=== PATIENT | female | born 1985 | race Caucasian/White ===

== ENCOUNTER 2016-06-09 13:33 | Emergency (ER) | payer OTHER ==
[~2016-06-09] VITALS: Ht 167.6 cm; Wt 71.4 kg
[~2016-06-09 13:33] MED LIST: MTR600X PO
[2016-06-09 13:35] VITALS: TEMP 37; Ht 167.6 cm; Wt 71.4 kg
[2016-06-09] MEDS ORDERED: DEXAMETHASONE SOD INJ 4 MG/ML VIAL IV STA (13:49)
[2016-06-09] MEDS ORDERED: DiphenhydrAMINE HCL 50 MG/ML VIAL IV STA (13:49)
[2016-06-09] MEDS ORDERED: FAMOTIDINE 20MG/102 ML D5W IV STA (13:49)
[2016-06-09] MEDS ORDERED: VENL150C PO (14:16)
[2016-06-09 14:24] LABS: COMPLETE YES; HEMATOCRIT 32.4 % (37-47); LYMPH % 20.8 %; LYMPH ABS # 1.45 K/uL (1.2-3.4); MEAN CELL VOLUME 85.3 fL (80-100); MEAN CORPUSCULAR HGB CONC 35.2 g/dl (32-36); MEAN PLATELET VOLUME 10.3 fL (7.4-10.4); MONO % 13.4 %; NEUT % 65.8 %; PLATELET COUNT 139 K/uL (130-400); WHITE BLOOD COUNT 6.96 K/uL (4.8-10.8)
[2016-06-09 14:40] LABS: BUN/CREATININE RATIO 4.9 (10-20); CALCIUM 8.4 mg/dl (8.5-10.1); CREATININE 0.67 mg/dl (0.60-1.20); POTASSIUM 3.6 mmol/L (3.5-5.1)
[2016-06-09] MEDS ORDERED: CLIN300C10 PO (15:14)
[2016-06-09] MEDS ORDERED: METH4PAK PO (15:14)
--- NOTE | 2016-06-09 15:15 | EMERGENCY ROOM VISIT NOTE ---
History First contact with patient: 13:39 Chief Complaint: FACIAL PAIN/INJURY Stated Complaint: PAIN, SWELLING, REDNESS, BLISTERING IN FACE History of Present Illness The patient is a 31 year old female who presents to the Emergency Room with complaints of facial swelling and redness which started 4 days ago. The patient states initially she noticed a small lump underneath her chin 4 days ago and since that time she has noticed some swelling and redness on her chin and face. She also states there are small vesicles on her face. The patient states it is itchy. She denies any severe pain. She states it "waldron". The patient denies any new soaps or lotions. The patient denies any other new environmental exposures. The patient thought at first it might be due to her teeth. The patient has diffuse decay of her teeth but currently is not having any increased tooth pain. The patient denies any throat or chest tightness. Review of Systems 10 system review was performed and was negative unless stated otherwise history of present illness. Past Medical/Surgical History Medical Problems: (1) Acute appendicitis (2) Appendectomy (3) No Known Active Medical Problems Social History Smoking Status: Never Smoker Alcohol Use: none Marital Status: single Housing Status: lives with family Occupation Status: employed Current/Historical Medications Scheduled Venlafaxine Hcl (Effexor Xr), 2 CAP PO DAILY Scheduled PRN Ibuprofen (Ibuprofen), 600 MG PO Q4H PRN for PAIN, SAAB, CRAMPING OR FEVER Allergies Coded Allergies: Penicillins (Verified Allergy, Intermediate, HIVES, 06/09/16) Physical Exam Vital Signs Date Time Temp Pulse Resp B/P Pulse Ox O2 Delivery O2 Flow Rate FiO2 06/09/16 13:35 37.0 86 20 113/73 99 Room Air Physical Exam GENERAL: 31-year-old white female appears in no acute distress. MENTAL Status: Alert and oriented 3. PHARYNX: No erythema or edema noted. Airway is adequate. MOUTH: Diffuse dental decay is noted. No visible abscess noted. FACE: The patient has erythema and edema noted across both sides of the mandible. She also has a area of vesicles with some yellow crusting noted on the chin. NECK: Supple, submental lymphadenopathy is noted which is tender to palpation. Bilateral anterior lymphadenopathy is noted which is nontender to palpation. LUNGS: Clear auscultation without wheezes rales or rhonchi. CARDIAC: Regular rate and rhythm without murmur. Pulses is full and equal throughout. SKIN: Remainder of skin without rashes. Medical Decision & Procedures Laboratory Results 06/09/16 14:15 Red Blood Count 3.80, Mean Corpuscular Volume 85.3, Mean Corpuscular Hemoglobin 30.0, Mean Corpuscular Hemoglobin Concent 35.2, Mean Platelet Volume 10.3, Neutrophils (%) (Auto) 65.8, Lymphocytes (%) (Auto) 20.8, Monocytes (%) (Auto) 13.4, Eosinophils (%) (Auto) 0.0, Basophils (%) (Auto) 0.0, Neutrophils # (Auto ) 4.58, Lymphocytes # (Auto) 1.45, Monocytes # (Auto) 0.93, Eosinophils # (Auto ) 0.00, Basophils # (Auto) 0.00 06/09/16 14:15 Test 06/09/16 14:15 White Blood Count 6.96 K/uL (4.8-10.8) Red Blood Count 3.80 M/uL (4.2-5.4) Hemoglobin 11.4 g/dL (12.0-16.0) Hematocrit 32.4 % (37-47) Mean Corpuscular Volume 85.3 fL (80-100) Mean Corpuscular Hemoglobin 30.0 pg (25-34) Mean Corpuscular Hemoglobin Concent 35.2 g/dl (32-36) Platelet Count 139 K/uL (130-400) Mean Platelet Volume 10.3 fL (7.4-10.4) Neutrophils (%) (Auto) 65.8 % Lymphocytes (%) (Auto) 20.8 % Monocytes (%) (Auto) 13.4 % Eosinophils (%) (Auto) 0.0 % Basophils (%) (Auto) 0.0 % Neutrophils # (Auto) 4.58 K/uL (1.4-6.5) Lymphocytes # (Auto) 1.45 K/uL (1.2-3.4) Monocytes # (Auto) 0.93 K/uL (0.11-0.59) Eosinophils # (Auto) 0.00 K/uL (0-0.5) Basophils # (Auto) 0.00 K/uL (0-0.2) RDW Standard Deviation 42.2 fL (36.4-46.3) RDW Coefficient of Variation 13.5 % (11.5-14.5) Immature Granulocyte % (Auto) 0.0 % Immature Granulocyte # (Auto) 0.00 K/uL (0.00-0.02) Anion Gap 7.0 mmol/L (3-11) Est Creatinine Clear Calc Drug Dose 125.4 ml/min Estimated GFR () 137.7 Estimated GFR (Non- 118.8 BUN/Creatinine Ratio 4.9 (10-20) Calcium Level 8.4 mg/dl (8.5-10.1) Medications Administered Medications (Trade) Dose Ordered Sig/Sandra Route Start Time Stop Time Status Last Admin Dose Admin Famotidine (Pepcid 20mg/100 ml) 20 mg ONE STAT IV 06/09/16 13:49 06/09/16 13:51 DC 06/09/16 14:21 20 MG Dexamethasone Sodium Phosphate (Decadron Inj) 10 mg NOW STAT IV 06/09/16 13:49 06/09/16 13:51 DC 06/09/16 14:22 10 MG Diphenhydramine HCl (Benadryl Inj) 50 mg NOW STAT IV 06/09/16 13:49 06/09/16 13:51 DC 06/09/16 14:24 50 MG ED Course The patient was evaluated. IV access was obtained. The patient was given Pepcid 20 mg IV, Decadron 10 mg IV and Benadryl 50 mg IV. CBC and differential , renal profile was ordered. Labs are reviewed and were unremarkable. The patient was reevaluated was feeling slightly better. The patient was discharged home in stable condition. Medical Decision Differential diagnosis include cellulitis, herpes zoster, allergic contact dermatitis Impression Primary Impression: Allergic contact dermatitis Departure Information Dispostion Home / Self-Care Condition GOOD Prescriptions Clindamycin Hcl (CLINDAMYCIN HCL) 300 Mg Cap 1 TAB PO TID for 10 Days Prov: Shayla Condon PA-C 06/09/16 Methylprednisolone (MEDROL DOSEPAK) 4 Mg John 1 PKT PO UD for 6 Days, #1 PKT Prov: Shayla Condon PA-C 06/09/16 Referrals No Doctor, Assigned (PCP) Forms HOME CARE DOCUMENTATION FORM, IMPORTANT VISIT INFORMATION Patient Instructions [facility] Additional Instructions Keep area is cool and dry as possible. Do not apply any soaps or detergents your face. Take Medrol dosepak as prescribed. Take clindamycin as prescribed. Also recommend Benadryl 25 mg every 6 hours for itch until rash resolves. Follow-up with your family doctor in 3 days for reevaluation. If symptoms worsen in the interim, return to ER.
[2016-06-09 15:35] VITALS: BP 112/68; PULSE 78; O2SAT 99
== END 2016-06-09 15:30 | disposition home or self-care (01) ==
LOC: C.EDB 13:35
DX: L30.8 Other specified dermatitis (principal); Z87.19 Personal history of other diseases of the digestive system; Z98.890 Other specified postprocedural states; Z88.0 Allergy status to penicillin

== ENCOUNTER 2016-09-29 16:07 | Emergency (ER) | payer OTHER ==
[~2016-09-29] VITALS: Ht 167.6 cm; Wt 72.2 kg
[~2016-09-29 16:07] MED LIST changes: +CLIN300C10 PO; +VENL150C PO
[2016-09-29 16:10] VITALS: BP 120/74; PULSE 89; TEMP 36.7; O2SAT 100; Ht 167.6 cm; Wt 72.2 kg
[2016-09-29] MEDS ORDERED: CLIN300C10 PO (16:43)
[2016-09-29] MEDS ORDERED: HYDR-5688 PO (16:43)
--- NOTE | 2016-09-29 23:37 | EMERGENCY ROOM VISIT NOTE ---
ED Visit Note First contact with patient: 16:19 CHIEF COMPLAINT: Tooth pain with swelling. HISTORY OF PRESENT ILLNESS: Ms. Wooten is a 31-year-old white female who ambulates into the ED complaining of right mandibular dental pain and facial swelling. Historically she reports she has significant dental disease throughout her mouth. She is scheduled to see an oral surgeon in [facility] later this month for extraction of all her teeth. She reports a progressive dental pain for the last 3-4 days over the right mandible. The pain is now steady and severe and radiates to the face. She has been using ibuprofen but has had moderate relief of her discomfort last few days but pain became severe today and is not relieved with ibuprofen. Currently she describes her pain as a deep achy sensation. She rates her discomfort 8/10. Her.is pain does radiate through the right mandibular teeth and into the right preauricular area. Her pain worsens with palpation of the teeth, chewing and exposure to hot and cold foods. Associated with her increase in pain she has noted facial swelling and mild erythema. She denies any associated fevers, chills, sweats, other facial swelling, upper respiratory tract symptoms, sore throat, difficulty swallowing, voice changes, neck pain/ stiffness, decreased appetite, nausea/vomiting. REVIEW OF SYSTEMS: As noted above in History of Present Illness. 8 body systems were reviewed with this patient and found to be negative unless noted above otherwise. PMH: Patient denies. CURRENT MEDICATION: Effexor. ALLERGIES TO MEDICATION: Penicillin. SOCIAL HISTORY: Patient is currently employed; she feels safe in her home environment; she admits to tobacco use and denies alcohol use. PHYSICAL EXAM: Vital Signs: Date Time Temp Pulse Resp B/P (MAP) Pulse Ox O2 Delivery O2 Flow Rate FiO2 09/29/16 16:10 36.7 89 18 120/74 100 Room Air General: 31 year-old white female in mild distress due to pain, nontoxic appearing, afebrile and hemodynamically stable. Neurological: Awake, alert and oriented to person, place and time. Answering questions appropriately and following commands. Skin: Warm, dry and pink. Face: Over the right side of the face over the mandibular area patient has mild facial swelling and mild erythema. No lymphangitis. HEENT: Atraumatic and normocephalic. Oral cavity is moist and pink. Airway is patent. Patient has multiple decaying teeth throughout the mouth. There is erythema and edema over the right mandibular gingiva. I was not able to palpate a specific abscess. Airway was patent. No cervical or submandibular lymphadenopathy. ED COURSE: Patient is assessed as noted above. Patient's medication list was reviewed. Patient is educated about her findings and instructed on her treatment plan; she verbalizes understanding and agreement with this plan. CLINIC IMPRESSION: Right mandibular dental abscess. DISPOSITION: Patient discharged home in stable condition; prior to departure she was reassessed and subjectively reported she was feeling the same. PLAN: Comfort measures were discussed including a sliding pain scale of ibuprofen, acetaminophen and [place]. Appropriate narcotic precautions were discussed and her name was checked on a state database. Patient was prescribed clindamycin 300 mg 4 times a day for 10 days. Patient was encouraged to smoking, keep her mouth clean and use a liquid/ mechanical soft diet and possible dental wax. Patient was encouraged to followup with personal dentist for definitive care and treatment. Patient was encouraged to return the ED for facial swelling or fevers or any new /concerning symptoms.
== END 2016-09-29 16:58 | disposition home or self-care (01) ==
LOC: C.EDB 16:09 → C.EDD 16:58
DX: K04.7 Periapical abscess without sinus (principal); Z72.0 Tobacco use

== ENCOUNTER 2017-02-02 13:02 | Emergency (ER) | payer OTHER ==
[~2017-02-02] VITALS: Ht 167.6 cm; Wt 71.4 kg
[~2017-02-02 13:02] MED LIST changes: +HYDR-5688 PO; -MTR600X PO
[2017-02-02 13:07] VITALS: TEMP 36.7; Ht 167.6 cm; Wt 71.4 kg
[2017-02-02] MEDS ORDERED: ONDANSETRON INJ 2 MG/ML 2 ML VIAL IV STA (13:40)
[2017-02-02] MEDS ORDERED: MoRPHine SULFATE 10 MG/ML CARP/VIAL IV STA (13:40)
--- NOTE | 2017-02-02 13:49 | EMERGENCY ROOM VISIT NOTE ---
History Report prepared by Abhijeet: Genaro Salinas Under the Supervision of: Dr. Everett Cao M.D. First contact with patient: 13:20 Chief Complaint: RIB PAIN Stated Complaint: SHARP PAIN WHEN BREATHING IN ON RT SIDE History of Present Illness The patient is a 31 year old white female with a past medical history of an appendectomy who presents to the ED with a cc of worsening, sharp RUQ abdominal pain beginning this morning. The patient woke this morning and thought it was from sleeping wrong. She has not eaten anything secondary to pain. Positive radiating to her back, breathing worsens her discomfort, able to drink fluids, nausea, current smoker. Negative history of kidney stones, trauma, vomiting, recent abx use, being around other sick people, fevers, chills, trouble urinating, trouble defecating, sorethroat, history of blood clots in lungs or legs, recent travel. LNMP was 2-3 weeks ago. Last normal BM was last night. Source of History: patient Onset: this morning Position: abdomen (RUQ) Quality: sharp Timing: worsening Modifying Factors (Worsening): breathing (deep) Associated Symptoms: + nausea, No fevers, No chills, No sorethroat, No vomiting, No urinary symptoms Note: Associated symptoms: able to drink fluids Denies: trouble defecating, recent travel Review of Systems See HPI for pertinent positives and negatives. A total of ten systems were reviewed and were otherwise negative. Past Medical & Surgical Medical Problems: (1) Acute appendicitis (2) Appendectomy (3) No Known Active Medical Problems Family History Diabetes mellitus Kidney disease Kidney stones Social History Smoking Status: Current Every Day Smoker Alcohol Use: none Marital Status: single Housing Status: lives with family Occupation Status: unemployed Current/Historical Medications Scheduled Ondasetron Odt (Zofran Odt), 4 MG SL Q6H Tramadol Hcl (Ultram), 50 MG PO Q8H Allergies Coded Allergies: Penicillins (Verified Allergy, Intermediate, HIVES, 02/02/17) Physical Exam Vital Signs Date Time Temp Pulse Resp B/P (MAP) Pulse Ox O2 Delivery O2 Flow Rate FiO2 02/02/17 16:32 101 18 109/72 98 Room Air 02/02/17 14:07 89 14 99 02/02/17 14:02 102 19 111/72 100 Room Air 02/02/17 13:32 116 22 99 Room Air 02/02/17 13:31 117/78 02/02/17 13:30 125 20 117/78 100 Room Air 02/02/17 13:29 111/74 02/02/17 13:07 36.7 149 20 115/76 100 Room Air Physical Exam GENERAL: Awake, alert, well-appearing, NAD HENT: Normocephalic, atraumatic. EYES: Normal conjunctiva. Sclera non-icteric. NECK: Supple. No nuchal rigidity. FROM. RESPIRATORY: CTAB, no rhonchi, wheezing, crackles CARDIAC: RRR, no MRG ABDOMEN: Soft, ND, BS+, RUQ tenderness - positive Looney's sign. MSK: No chest wall TTP, no LE edema NEURO: GCS 15, CN 2-12 intact, moves all 4s on command SKIN: No rash or jaundice noted. Medical Decision & Procedures ER Provider Diagnostic Interpretation: Radiology results as stated below per my review and radiologist interpretation: ABDOMINAL ULTRASOUND, RIGHT UPPER QUADRANT HISTORY: Generalized abdominal pain.. COMPARISON: Abdominal MRI 04/01/2011. FINDINGS: Pancreas: Obscured by overlying bowel gas. Liver: A 3.3 cm ill-defined echogenic focus within the anterior aspect of the right hepatic lobe. This is not confirmed on additional views and may represent artifact.. Gallbladder: No gallbladder wall thickening. No gallstones. CBD: 5 mm. Right kidney: No hydronephrosis. IMPRESSION: 1. Normal gallbladder. No gallstones. 2. Pancreas obscured by overlying bowel gas. Electronically signed by: Marcellus Ochoa M.D. 02/02/2017 3:08 PM Dictated Date/Time: 02/02/2017 3:05 PM CHEST ONE VIEW PORTABLE HISTORY: Generalized abdominal pain. COMPARISON: Chest 06/14/2012. FINDINGS: The lungs are clear. Cardiac silhouette is normal in size. No pleural effusions. No pneumothorax. IMPRESSION: No acute process. Electronically signed by: Marcellus Ochoa M.D. 02/02/2017 2:09 PM Dictated Date/Time: 02/02/2017 2:08 PM CHEST CTA for PULMONARY ARTERIES CT DOSE: 189.63 mGy.cm HISTORY: Right-sided pleuritic chest pain. Tachycardia. TECHNIQUE: Multiaxial CT images of the chest were performed following the intravenous administration of contrast to evaluate the pulmonary arteries. Maximal intensity projection images were also obtained. A dose lowering technique was utilized adhering to the principles of ALARA. COMPARISON STUDY: None. FINDINGS: There is a normal caliber thoracic aorta with no evidence for dissection. There is no evidence for pulmonary embolus. No pleural effusions. No pneumothorax. The liver is unremarkable. The spleen is partially visualized but appears enlarged. This measures 14 cm in AP dimension. No mediastinal or left hilar lymphadenopathy. Filling defect within the right lower lobe bronchus which appears to represent a small amount of mucoid material. This results in moderate to severe narrowing of the right lower lobe bronchus. Single prominent right hilar lymph node which measures 9 mm in short axis diameter. IMPRESSION: 1. No evidence for pulmonary embolus. 2. The spleen is partially visualized but appears enlarged. 3. Filling defect within the right lower lobe bronchus which appears to represent a small amount of mucoid material. This results in moderate to severe narrowing of the right lower lobe bronchus. Electronically signed by: Marcellus Ochoa M.D. 02/02/2017 4:44 PM Dictated Date/Time: 02/02/2017 4:27 PM Laboratory Results 02/02/17 13:30 Red Blood Count 4.67, Mean Corpuscular Volume 83.7, Mean Corpuscular Hemoglobin 29.6, Mean Corpuscular Hemoglobin Concent 35.3, Mean Platelet Volume 10.0, Neutrophils (%) (Auto) 69.4, Lymphocytes (%) (Auto) 20.0, Monocytes (%) (Auto) 10.4, Eosinophils (%) (Auto) 0.0, Basophils (%) (Auto) 0.0, Neutrophils # (Auto ) 4.35, Lymphocytes # (Auto) 1.25, Monocytes # (Auto) 0.65, Eosinophils # (Auto ) 0.00, Basophils # (Auto) 0.00 02/02/17 13:30 Test 02/02/17 13:30 02/02/17 16:35 White Blood Count 6.26 K/uL (4.8-10.8) Red Blood Count 4.67 M/uL (4.2-5.4) Hemoglobin 13.8 g/dL (12.0-16.0) Hematocrit 39.1 % (37-47) Mean Corpuscular Volume 83.7 fL (80-100) Mean Corpuscular Hemoglobin 29.6 pg (25-34) Mean Corpuscular Hemoglobin Concent 35.3 g/dl (32-36) Platelet Count 150 K/uL (130-400) Mean Platelet Volume 10.0 fL (7.4-10.4) Neutrophils (%) (Auto) 69.4 % Lymphocytes (%) (Auto) 20.0 % Monocytes (%) (Auto) 10.4 % Eosinophils (%) (Auto) 0.0 % Basophils (%) (Auto) 0.0 % Neutrophils # (Auto) 4.35 K/uL (1.4-6.5) Lymphocytes # (Auto) 1.25 K/uL (1.2-3.4) Monocytes # (Auto) 0.65 K/uL (0.11-0.59) Eosinophils # (Auto) 0.00 K/uL (0-0.5) Basophils # (Auto) 0.00 K/uL (0-0.2) RDW Standard Deviation 40.0 fL (36.4-46.3) RDW Coefficient of Variation 13.4 % (11.5-14.5) Immature Granulocyte % (Auto) 0.2 % Immature Granulocyte # (Auto) 0.01 K/uL (0.00-0.02) Anion Gap 9.0 mmol/L (3-11) Est Creatinine Clear Calc Drug Dose 87.5 ml/min Estimated GFR () 92.6 Estimated GFR (Non- 79.9 BUN/Creatinine Ratio 5.4 (10-20) Calcium Level 9.2 mg/dl (8.5-10.1) Total Bilirubin 0.5 mg/dl (0.2-1) Direct Bilirubin 0.1 mg/dl (0-0.2) Aspartate Amino Transf (AST/SGOT) 25 U/L (15-37) Alanine Aminotransferase (ALT/SGPT) 22 U/L (12-78) Alkaline Phosphatase 116 U/L (45-117) Total Protein 7.5 gm/dl (6.4-8.2) Albumin 3.8 gm/dl (3.4-5.0) Lipase 80 U/L (73-393) Urine Color YELLOW Urine Appearance CLEAR (CLEAR) Urine pH 8.5 (4.5-7.5) Urine Specific [place] > 1.045 (1.000-1.030) Urine Protein NEG (NEG) Urine Glucose (UA) NEG (NEG) Urine Ketones NEG (NEG) Urine Occult Blood TRACE (NEG) Urine Nitrite NEG (NEG) Urine Bilirubin NEG (NEG) Urine Urobilinogen NEG (NEG) Urine Leukocyte Esterase NEG (NEG) Urine WBC (Auto) 0 /hpf (0-5) Urine RBC (Auto) 0-4 /hpf (0-4) Urine Hyaline Casts (Auto) 0 /lpf (0-5) Urine Epithelial Cells (Auto) 10-20 /lpf (0-5) Urine Bacteria (Auto) NEG (NEG) Urine Test NEG (NEG) Laboratory results reviewed by me Medications Administered Medications (Trade) Dose Ordered Sig/Sandra Route Start Time Stop Time Status Last Admin Dose Admin Ondansetron HCl (Zofran Inj) 4 mg NOW STAT IV 02/02/17 13:40 02/02/17 13:45 DC 02/02/17 13:55 4 MG Morphine Sulfate (MoRPHine SULFATE INJ) 4 mg STK-MED ONCE .ROUTE 02/02/17 13:52 02/02/17 13:53 DC 02/02/17 13:56 4 MG Morphine Sulfate (MoRPHine SULFATE INJ) 2 mg STK-MED ONCE .ROUTE 02/02/17 13:53 02/02/17 13:54 DC 02/02/17 13:56 2 MG ECG Indication: abdominal pain Rate (beats per minute): 140 Rhythm: sinus tachycardia Findings: other (Normal intervals, no STS or TWI) ED Course 1333: The patient was evaluated in room C12B. A complete history and physical exam was performed. 1601: The patient is getting her CT. According to the tracker, her blood pressure has improved. 1653: I reevaluated the patient. Discussed results and discharge instructions: she verbalized understanding and agreement. The patient is ready for discharge. Medical Decision The patient is a 31 year old white female with a past medical history of an appendectomy who presents to the ED with a cc of worsening, sharp RUQ abdominal pain beginning this morning. Etiologies such as appendicitis, diverticulitis, PUD, biliary pathology, UTI, pancreatitis, obstruction, mesenteric ischemia, aortic pathology, infections, inflammatory bowel disease, renal colic, as well as others were entertained. Patient was seen and evaluated at the bedside. Patient was complaining of some fairly abrupt right upper quadrant or pleuritic chest pain. Patient does not take any OCPs. Patient is a smoker. Patient was counseled on smoking cessation. Patient denies any prior history of DVT or PE. Patient does not endorse any recent prolonged car or plane travel. Patient does not complain of any lower extremity swelling. Patient states that the pain she states is worse when she breathes in but she feels as though this is more in the upper right quadrant. Patient denies any cough, fevers, chills. Patient states she did have some liquids this morning but this did not exacerbate her pain. Patient denies any recent trauma. Initially there was more concern for possible gallbladder etiology. Patient did have a right quadrant ultrasound ordered, blood work, EKG, chest x-ray and urinalysis with UPT. Patient was also given pain medication. Patient's pain was improved and tachycardia resolved. Patient 's blood work showed that she had no elevation in her white blood cell count. Patient's hemoglobin was normal. Patient urinalysis was negative for infection or blood. Urine test was negative. Patient does not have any elevations in her LFTs or lipase. Patient also had a negative gallbladder ultrasound and chest x-ray. Given this and the fact that the patient was complaining of pleuritic chest pain with tachycardia patient did receive a CT of the chest to rule out possible PE. Patient's CT did not show acute pulmonary embolus. There was a filling defect in the right lower bronchus. I did speak with the radiologist stated that this was with in the bronchus and that this was not located within the vasculature and not concerning for pulmonary infarct. Patient was told of all findings patient pain was improved. Patient's EKG did show sinus tachycardia but his tachycardia had resolved I do not believe that this is atypical chest pain or ACS given the patient's history and physical. I do not believe that the patient requires an abdominal CTs patient's pain is improved. Patient has not had any vomiting and does not have an acute surgical abdomen. Furthermore, the patient's blood work is fairly unremarkable and unconcerning. Patient was deemed suitable for outpatient follow-up and treatment. Patient was given strict follow-up, discharge, and return precautions. All questions were answered. Patient was deemed suitable for outpatient follow-up at this time. Patient agreed with the plan of care and was safely discharged home. Impression Primary Impression: RUQ pain Additional Impression: Pleuritic pain Scribe Attestation The scribe's documentation has been prepared under my direction and personally reviewed by me in its entirety. I confirm that the note above accurately reflects all work, treatment, procedures, and medical decision making performed by me. Departure Information Dispostion Home / Self-Care Prescriptions Ondasetron Odt (ZOFRAN ODT) 4 Mg Tab 4 MG SL Q6H for Nausea, #6 TAB Prov: Everett Cao M.D. 02/02/17 Tramadol Hcl (ULTRAM) 50 Mg Tab 50 MG PO Q8H, #15 TAB PRN PAIN Prov: Everett Cao M.D. 02/02/17 Referrals No Doctor, Assigned (PCP) Forms HOME CARE DOCUMENTATION FORM, IMPORTANT VISIT INFORMATION, WORK / SCHOOL INSTRUCTIONS Patient Instructions Abdominal Pain, My [facility] [employer] Additional Instructions Please return to the emergency department if you have worsening or recurrent symptoms not amenable to at-home treatment. Please call for a follow-up appointment with her primary care physician. Please take your medications as prescribed. If you have other concerns and/or complaints please feel free to also call your primary care physician's office or return the ED for further evaluation, management, and treatment. You may take 400 mg Ibuprofen every 6 hours as needed for pain with food for no more than 2 consecutive days. You may take tylenol 1000 mg every 6 hours as needed for pain. You may take motrin and tylenol separately or at the same time. Take your medications as prescribed. You have been examined and treated today on an emergency basis only. This is not a substitute for, or an effort to provide, complete comprehensive medical care. It is impossible to recognize and treat all injuries or illnesses in a single emergency department visit. It is therefore important that you follow up closely with [facility], your PCP, and/or your specialist(s). Call as soon as possible for an appointment. Thank you for your time and consideration. I look forward to speaking with you again soon. Please don't hesitate to call us if you have any questions. Problem Qualifiers
[2017-02-02] MEDS ORDERED: MoRPHine SULFATE 4 MG/ML 1 ML CARP\\VIAL ONE (13:52)
[2017-02-02] MEDS ORDERED: MoRPHine SULFATE 2 MG/ML CARP ONE (13:53)
[2017-02-02 14:04] LABS: COMPLETE YES; HEMATOCRIT 39.1 % (37-47); IG% 0.2 %; LYMPH ABS # 1.25 K/uL (1.2-3.4); MEAN CELL VOLUME 83.7 fL (80-100); MEAN CORPUSCULAR HEMOGLOBIN 29.6 pg (25-34); MEAN CORPUSCULAR HGB CONC 35.3 g/dl (32-36); MONO % 10.4 %; NEUT % 69.4 %; PLATELET COUNT 150 K/uL (130-400); RED BLOOD COUNT 4.67 M/uL (4.2-5.4); WHITE BLOOD COUNT 6.26 K/uL (4.8-10.8)
--- NOTE | 2017-02-02 14:10 | DIAGNOSTIC IMAGING REPORT ---
CHEST ONE VIEW PORTABLE HISTORY: Generalized abdominal pain. COMPARISON: Chest 06/14/2012. FINDINGS: The lungs are clear. Cardiac silhouette is normal in size. No pleural effusions. No pneumothorax. IMPRESSION: No acute process. Electronically signed by: Marcellus Ochoa M.D. 02/02/2017 2:09 PM Dictated Date/Time: 02/02/2017 2:08 PM
[2017-02-02 14:13] LABS: BUN/CREATININE RATIO 5.4 (10-20); CALCIUM 9.2 mg/dl (8.5-10.1); CREATININE 0.96 mg/dl (0.60-1.20); POTASSIUM 3.9 mmol/L (3.5-5.1)
--- NOTE | 2017-02-02 15:10 | DIAGNOSTIC IMAGING REPORT ---
ABDOMINAL ULTRASOUND, RIGHT UPPER QUADRANT HISTORY: Generalized abdominal pain.. COMPARISON: Abdominal MRI 04/01/2011. FINDINGS: Pancreas: Obscured by overlying bowel gas. Liver: A 3.3 cm ill-defined echogenic focus within the anterior aspect of the right hepatic lobe. This is not confirmed on additional views and may represent artifact.. Gallbladder: No gallbladder wall thickening. No gallstones. CBD: 5 mm. Right kidney: No hydronephrosis. IMPRESSION: 1. Normal gallbladder. No gallstones. 2. Pancreas obscured by overlying bowel gas. Electronically signed by: Marcellus Ochoa M.D. 02/02/2017 3:08 PM Dictated Date/Time: 02/02/2017 3:05 PM
[2017-02-02] MEDS ORDERED: OPTIRAY 320 IV PRN (15:30)
--- NOTE | 2017-02-02 16:45 | DIAGNOSTIC IMAGING REPORT ---
CHEST CTA for PULMONARY ARTERIES CT DOSE: 189.63 mGy.cm HISTORY: Right-sided pleuritic chest pain. Tachycardia. TECHNIQUE: Multiaxial CT images of the chest were performed following the intravenous administration of contrast to evaluate the pulmonary arteries. Maximal intensity projection images were also obtained. A dose lowering technique was utilized adhering to the principles of ALARA. COMPARISON STUDY: None. FINDINGS: There is a normal caliber thoracic aorta with no evidence for dissection. There is no evidence for pulmonary embolus. No pleural effusions. No pneumothorax. The liver is unremarkable. The spleen is partially visualized but appears enlarged. This measures 14 cm in AP dimension. No mediastinal or left hilar lymphadenopathy. Filling defect within the right lower lobe bronchus which appears to represent a small amount of mucoid material. This results in moderate to severe narrowing of the right lower lobe bronchus. Single prominent right hilar lymph node which measures 9 mm in short axis diameter. IMPRESSION: 1. No evidence for pulmonary embolus. 2. The spleen is partially visualized but appears enlarged. 3. Filling defect within the right lower lobe bronchus which appears to represent a small amount of mucoid material. This results in moderate to severe narrowing of the right lower lobe bronchus. Electronically signed by: Marcellus Ochoa M.D. 02/02/2017 4:44 PM Dictated Date/Time: 02/02/2017 4:27 PM
[2017-02-02 16:58] LABS: URINE APPEARANCE CLEAR (CLEAR); URINE BILIRUBIN NEG (NEG); URINE COLOR YELLOW; URINE NITRITE NEG (NEG); URINE PH 8.5 (4.5-7.5); URINE SPECIFIC GRAVITY > 1.045 (1.000-1.030); UROBILINOGEN NEG (NEG); ZZUR CULT IF INDIC CLEAN CATCH NO
[2017-02-02 17:00] LABS: MANUAL MICROSCOPIC REQUIRED? NO; REVIEW REQ? NO
[2017-02-02] MEDS ORDERED: TRAM-453 PO (17:14)
[2017-02-02] MEDS ORDERED: ONDA4TAB10 SL (17:14)
[2017-02-02 17:47] VITALS: BP 106/65; PULSE 87; O2SAT 98
== END 2017-02-02 17:47 | disposition home or self-care (01) ==
LOC: C.EDB 13:03 → C.EDC 17:47
DX: R10.11 Right upper quadrant pain (principal); R07.81 Pleurodynia; Z90.89 Acquired absence of other organs; F17.200 Nicotine dependence, unspecified, uncomplicated; Z83.3 Family history of diabetes mellitus; Z84.1 Family history of disorders of kidney and ureter

== ENCOUNTER 2017-07-17 20:47 | Emergency (ER) | payer OTHER ==
[~2017-07-17] VITALS: Ht 167.6 cm; Wt 73.8 kg
[~2017-07-17 20:47] MED LIST changes: -CLIN300C10 PO; -HYDR-5688 PO; +ONDA4TAB10 SL; -VENL150C PO
[2017-07-17 20:51] VITALS: TEMP 36.9; Ht 167.6 cm; Wt 73.8 kg
--- NOTE | 2017-07-17 21:37 | EMERGENCY ROOM VISIT NOTE ---
History Report prepared by Abhijeet: Lamar Donato Under the Supervision of: Dr. Diamond Benítez M.D. First contact with patient: 21:10 Chief Complaint: MENTAL HEALTH EVALUATION Stated Complaint: MENTAL HEALTH EVAL History of Present Illness The patient is a 32 year old female who presents to the Emergency Room with complaints of a mental health evaluation today. The patient states that she missed a court hearing recently due to transportation issues. The patient reports that she has been very depressed lately and that she is on Subutex but that she has not been using it correctly and instead has been taking it so that she "could sleep." The patient states that her mom kicked her out of her house because they got into an argument. The patient states that shortly after she got an eviction notice from her mother and stepdad. Patient admits to thoughts of suicide however she believes her daughter, who is 6 years old, needs her, which prevents her from self-harm. The patient has 3 other children which have been removed from her custody. She states that she took her Subutex today and denies other drug and alcohol use. The patient states that she is on Effexor but that she has not taken it in a few days because her prescription ran out. The patient states that she has been a psych inpatient before as a child, but not as an adult. She denies having other symptoms. Source of History: patient Onset: today Position: other (generalized ) Quality: other (mental health evaluation ) Timing: constant Associated Symptoms: No fevers Review of Systems See HPI for pertinent positives & negatives. A total of 10 systems reviewed and were otherwise negative. Past Medical & Surgical Medical Problems: (1) Acute appendicitis (2) Appendectomy (3) No Known Active Medical Problems Family History Diabetes mellitus Kidney disease Kidney stones Social History Smoking Status: Current Every Day Smoker Alcohol Use: none Drug Use: other (Subutex, amphetamines) Marital Status: single Housing Status: lives with family Occupation Status: unemployed Current/Historical Medications Scheduled Buprenorphine Hcl (Subutex), 8 MG SL BID Venlafaxine Hcl (Venlafaxine Hcl Er), 300 MG PO DAILY Allergies Coded Allergies: Penicillins (Verified Allergy, Intermediate, HIVES, 02/02/17) Physical Exam Vital Signs Date Time Temp Pulse Resp B/P (MAP) Pulse Ox O2 Delivery O2 Flow Rate FiO2 07/17/17 20:51 36.9 83 18 122/80 99 Room Air Physical Exam Vital signs reviewed. General: Disheveled female. Tearful, anxious. Lack of facial hair. Wig in place. HEENT: No scleral icterus, PERRLA, neck supple. Atraumatic. Edentulous. Cardiovascular: Regular rate and rhythm, no extra sounds. Pulmonary: Clear to auscultation bilaterally, normal work of breathing. Abdomen: Soft, nontender, nondistended, positive bowel sounds. Musculoskeletal: Atraumatic, no peripheral edema. Neurologic: Patient awake alert and oriented x 3 Skin: Warm, dry, no rash Psych: Positive SI no plan. Negative HI. Medical Decision & Procedures Laboratory Results 07/17/17 21:39 Red Blood Count 4.54, Mean Corpuscular Volume 80.4, Mean Corpuscular Hemoglobin 29.5, Mean Corpuscular Hemoglobin Concent 36.7, Mean Platelet Volume 9.5, Neutrophils (%) (Auto) 62.7, Lymphocytes (%) (Auto) 27.6, Monocytes (%) (Auto) 9.6, Eosinophils (%) (Auto) 0.0, Basophils (%) (Auto) 0.0, Neutrophils # (Auto) 4.20, Lymphocytes # (Auto) 1.85, Monocytes # (Auto) 0.64, Eosinophils # (Auto) 0.00, Basophils # (Auto) 0.00 07/17/17 21:39 Test 07/17/17 21:24 07/17/17 21:39 Urine Color DK YELLOW Urine Appearance CLEAR (CLEAR) Urine pH 5.5 (4.5-7.5) Urine Specific [place] 1.025 (1.000-1.030) Urine Protein NEG (NEG) Urine Glucose (UA) NEG (NEG) Urine Ketones NEG (NEG) Urine Occult Blood TRACE (NEG) Urine Nitrite NEG (NEG) Urine Bilirubin NEG (NEG) Urine Urobilinogen NEG (NEG) Urine Leukocyte Esterase NEG (NEG) Urine WBC (Auto) 1-5 /hpf (0-5) Urine RBC (Auto) 5-10 /hpf (0-4) Urine Hyaline Casts (Auto) 5-10 /lpf (0-5) Urine Epithelial Cells (Auto) 10-20 /lpf (0-5) Urine Bacteria (Auto) NEG (NEG) Urine Test NEG (NEG) Urine Opiates Screen NEG (NEG) Urine Methadone, Qualitative NEG (NEG) Urine Barbiturates NEG (NEG) Urine Phencyclidine (PCP) Level NEG (NEG) Ur Amphetamine/Methamphetamine POS (NEG) MDMA (Ecstasy) Screen NEG (NEG) Urine Benzodiazepines Screen NEG (NEG) Urine Cocaine Metabolite NEG (NEG) Urine Marijuana (THC) NEG (NEG) White Blood Count 6.70 K/uL (4.8-10.8) Red Blood Count 4.54 M/uL (4.2-5.4) Hemoglobin 13.4 g/dL (12.0-16.0) Hematocrit 36.5 % (37-47) Mean Corpuscular Volume 80.4 fL (80-100) Mean Corpuscular Hemoglobin 29.5 pg (25-34) Mean Corpuscular Hemoglobin Concent 36.7 g/dl (32-36) Platelet Count 183 K/uL (130-400) Mean Platelet Volume 9.5 fL (7.4-10.4) Neutrophils (%) (Auto) 62.7 % Lymphocytes (%) (Auto) 27.6 % Monocytes (%) (Auto) 9.6 % Eosinophils (%) (Auto) 0.0 % Basophils (%) (Auto) 0.0 % Neutrophils # (Auto) 4.20 K/uL (1.4-6.5) Lymphocytes # (Auto) 1.85 K/uL (1.2-3.4) Monocytes # (Auto) 0.64 K/uL (0.11-0.59) Eosinophils # (Auto) 0.00 K/uL (0-0.5) Basophils # (Auto) 0.00 K/uL (0-0.2) RDW Standard Deviation 38.5 fL (36.4-46.3) RDW Coefficient of Variation 13.3 % (11.5-14.5) Immature Granulocyte % (Auto) 0.1 % Immature Granulocyte # (Auto) 0.01 K/uL (0.00-0.02) Anion Gap 7.0 mmol/L (3-11) Est Creatinine Clear Calc Drug Dose 99.4 ml/min Estimated GFR () 106.6 Estimated GFR (Non- 91.9 BUN/Creatinine Ratio 2.1 (10-20) Calcium Level 8.9 mg/dl (8.5-10.1) Total Bilirubin 0.4 mg/dl (0.2-1) Direct Bilirubin 0.1 mg/dl (0-0.2) Aspartate Amino Transf (AST/SGOT) 30 U/L (15-37) Alanine Aminotransferase (ALT/SGPT) 30 U/L (12-78) Alkaline Phosphatase 109 U/L (45-117) Total Protein 7.7 gm/dl (6.4-8.2) Albumin 4.0 gm/dl (3.4-5.0) Thyroid Stimulating Hormone (TSH) 2.750 uIu/ml (0.300-4.500) Salicylates Level < 1.7 mg/dl (2.8-20) Acetaminophen Level < 2 ug/ml (10-30) Ethyl Alcohol mg/dL < 3.0 mg/dl (0-3) Laboratory results per my review. ED Course 2119: Past medical records reviewed. The patient was evaluated in room A6. A complete history and physical examination was performed. 0030: The patient was signed out to Dr. Rangel. Medical Decision Differential diagnosis: Etiologies such as mood disorder, infection, hypoglycemia, electrolyte abnormalities, cardiac sources, intracerebral event, toxicologic, neurologic, as well as others were entertained. This patient was evaluated and appeared to be in no significant distress. Patient is tearful and anxious. 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 Patient apparently has been removed from her living situation, last custody of her children and is having financial stressors. She is also having significant legal issues. Patient has been medically cleared. She has been evaluated by the psychiatric disability case manager. Her mother has filed a 302 petitioning statement. The case has been signed out to Dr. Rangel at the change of shift, pending full mental health assessment. Medication Reconcilliation Current Medication List: was personally reviewed by me Blood Pressure Screening Patient's blood pressure: Normal blood pressure Impression Primary Impression: Substance abuse Additional Impressions: Suicidal ideation Mood disorder Scribe Attestation The scribe's documentation has been prepared under my direction and personally reviewed by me in its entirety. I confirm that the note above accurately reflects all work, treatment, procedures, and medical decision making performed by me. Departure Information Dispostion Still a Patient Referrals Kalani Serna M.D. (MEDICAL) (PCP) Patient Instructions [facility] Problem Qualifiers
[2017-07-17] MEDS ORDERED: VENL150T33 PO (21:41)
[2017-07-17] MEDS ORDERED: BUPR8SUB19 SL (21:41)
[2017-07-17 21:49] LABS: HEMATOCRIT 36.5 % (37-47); HEMOGLOBIN 13.4 g/dL (12.0-16.0); IG# 0.01 K/uL (0.00-0.02); LYMPH % 27.6 %; LYMPH ABS # 1.85 K/uL (1.2-3.4); MEAN CELL VOLUME 80.4 fL (80-100); MEAN CORPUSCULAR HEMOGLOBIN 29.5 pg (25-34); MEAN CORPUSCULAR HGB CONC 36.7 g/dl (32-36); MEAN PLATELET VOLUME 9.5 fL (7.4-10.4); MONO % 9.6 %; MONO ABS # 0.64 K/uL (0.11-0.59); NEUT % 62.7 %; PLATELET COUNT 183 K/uL (130-400); RED CELL DISTRIBUTION WIDTH CV 13.3 % (11.5-14.5); RED CELL DISTRIBUTION WIDTH SD 38.5 fL (36.4-46.3)
[2017-07-17 22:11] LABS: CALCIUM 8.9 mg/dl (8.5-10.1); CREATININE 0.85 mg/dl (0.60-1.20); POTASSIUM 3.3 mmol/L (3.5-5.1)
[2017-07-17 22:22] LABS: TOTAL PROTEIN 7.7 gm/dl (6.4-8.2)
--- NOTE | 2017-07-18 05:02 | EMERGENCY ROOM VISIT NOTE ---
ED Visit Note First contact with patient: 01:24 This case was signed out to me at change of shift awaiting evaluation and bed placement. The patient was evaluated by the ED psych employment case manager. She is willing to sign herself in voluntarily. They have currently referred her information to the [facility] for admission. The patient was accepted at the [facility] and will be transported there some time after 10 AM this morning. The patient is sleeping at this time. 0505: The patient continues to rest at this time. She will have breakfast ordered in the morning. She will go to the [facility] when transport is available.
[2017-07-18] MEDS ORDERED: VENLAFAXINE HCL 50 MG TAB PO STA (07:27)
[2017-07-18] MEDS ORDERED: BUPRENORPHINE HCL 8 MG SUBL SL STA (07:27)
[2017-07-18 15:08] VITALS: BP 116/65; PULSE 71; O2SAT 99
== END 2017-07-18 15:08 | disposition short-term general hospital (02) ==
LOC: C.EDB 20:48 → C.EDA 07-18 15:08
DX: F55.8 Abuse of other non-psychoactive substances (principal); R45.851 Suicidal ideations; F39 Unspecified mood [affective] disorder; F17.200 Nicotine dependence, unspecified, uncomplicated; Z90.89 Acquired absence of other organs; Z83.3 Family history of diabetes mellitus; Z84.1 Family history of disorders of kidney and ureter; Z88.0 Allergy status to penicillin

== ENCOUNTER 2019-08-26 21:09 | Inpatient (IN) ==
[2019-08-26] MEDS ORDERED: FAMOTIDINE 20MG IV PUSH 20 MG/5 ML SYR IV STA (21:58)
[2019-08-26] MEDS ORDERED: PROCHLORPERAZINE 2 ML IV ONE (21:58)
[2019-08-26] MEDS ORDERED: ACETAMINOPHEN 1,000 MG/100 ML VIAL IV STA (21:58)
[2019-08-26] MEDS ORDERED: DiphenhydrAMINE HCL 50 MG/ML VIAL IV STA (21:58)
[2019-08-26] MEDS ORDERED: SODIUM CHLORIDE 0.9% 1000ML 1,000 ML IV SCH (22:00)
[2019-08-26 22:12] LABS: Basophils # (auto) 0.01 K/uL (0-0.2); Basophils % (auto) 0.1 %; Hematocrit (blood only) 41.8 % (37-47); Hemoglobin 15.1 g/dL (12.0-16.0); Immature Granulocytes # (auto) 0.03 K/uL (0.00-0.02); Immature Granulocytes % (auto) 0.3 %; Lymphocytes # (auto) 1.87 K/uL (1.2-3.4); Lymphocytes % (auto) 18.1 %; Mean Corpuscular Hemoglobin 36.2 pg (25-34); Mean Corpuscular Hgb Conc 36.1 g/dL (32-36); Mean Corpuscular Volume 100.2 fL (80-100); Mean Platelet Volume 9.8 fL (7.4-10.4); Monocytes # (auto) 1.24 K/uL (0.11-0.59); Neutrophils # (auto) 7.21 K/uL (1.4-6.5); Neutrophils % (auto) 69.5 %; Platelet Count 184 K/uL (130-400); RDW Coefficient of Variation 12.3 % (11.5-14.5); RDW Standard Deviation 45.3 fL (36.4-46.3); Red Blood Count 4.17 M/uL (4.2-5.4); White Blood Count 10.36 K/uL (4.8-10.8)
[2019-08-26 22:31] LABS: Alanine Aminotransferase 139 U/L (12-78); Aspartate Aminotransferase 145 U/L (15-37); BUN Creatinine Ratio 10.4 (10-20); Blood Urea Nitrogen 9 mg/dl (7-18); Calcium 10.3 mg/dl (8.5-10.1); Carbon Dioxide 22 mmol/L (21-32); Chloride 99 mmol/L (98-107); Creatinine Clr Calc Pharmacy 100.2 ml/min; Est GFR (African American) 103.6; Est GFR (Non-African American) 89.4; Glucose 93 mg/dl (70-99); Magnesium 1.7 mg/dl (1.8-2.4); Potassium 3.3 mmol/L (3.5-5.1); Sodium 138 mmol/L (136-145)
[2019-08-26 22:42] LABS: Alkaline Phosphatase 157 U/L (45-117); Bilirubin,Total 1.2 mg/dl (0.2-1); Lipase 7867 U/L (73-393); Troponin I < 0.015 ng/ml (0-0.045)
--- NOTE | 2019-08-26 23:39 | Emergency Department Note ---
History of Present Illness General Chief complaint: Abdominal Pain Stated complaint: AB PAIN Time Seen by Provider: 08/26/19 21:45 History of Present Illness Maximum Pain Intensity: 10 This is a 34-year-old female presenting to the emergency department for evaluation of epigastric abdominal pain worsening over the past day. Patient arrives via EMS stating that she had mild epigastric abdominal pain this morning that is worsened tonight. The patient describes it as a burning 10/10 pain that does not radiate. She is nauseated with intermittent episodes of vomiting. The patient denies . No lower abdominal pain or vaginal discomfort. She does not have chest pain, chest tightness, or shortness of breath. According to EMS the patient did have an empty bottle of liquor on the ground when they arrived. The patient is with a past history of substance abuse but denies drug use. 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 Beliefs That Will Affect Care: None Current Living Situation: Alone Other Information That Helps Us Care for You: No Feels Safe at Home: Yes Safety Concerns: Feels Safe At This Time Smoking Status: Current every day smoker Tobacco Type: cigarettes ; Do You Dip or Chew Tobacco: No ; Second Hand Exposure: Yes ; Tobacco Cessation Education Requested by Patient: No Hx Alcohol Use: Yes Alcohol type: wine Hx Substance Use: No Review of Systems A total of 10 systems reviewed and were otherwise negative Physical Exam Vital Signs Vital Signs - 24 hr 08/26/19 21:15 08/26/19 22:23 Temperature 36.7 C Temperature Source Oral Pulse Rate 98 H Respiratory Rate 24 Respiratory Effort / Characteristics Non-Labored Respiratory Depth Normal Respiratory Pattern Regular Blood Pressure 127/100 Blood Pressure Mean 109 Pulse Oximetry 99 97 Oxygen Delivery Method Room Air Room Air Sepsis Recent Fever Within 48 Hours No Sepsis New/Unexplained Change in Mental Status No Sepsis Action Taken by Nursing No Action Required VITALS: Vitals are noted on the nurse's note and reviewed by myself. Vital signs stable. GENERAL: White female who is not cooperative. She is rolling back and forth on the ER bed refusing to change into a gown. Exam is significantly limited secondary to patient cooperation. She does smell of alcohol. HEAD: Normocephalic atraumatic. NECK: Supple without nuchal rigidity. No lymphadenopathy. No thyromegaly. Cervical spine is nontender. HEART: Regular rate and rhythm without murmurs gallops or rubs. LUNGS: Clear to auscultation bilaterally without wheezes, rales or rhonchi. No retractions or accessory muscle use. ABDOMEN: Positive normal bowel sounds x 4. Soft with epigastric and mild right upper quadrant tenderness. No lower tenderness. Patient is guarding the upper abdomen. No CVA tenderness. MUSCULOSKELETAL: No muscle atrophy, erythema, or edema noted. Full range of motion in all extremities. NEURO: Patient was alert and oriented to person place and time. CN II through XII grossly intact. SKIN: The skin was with nonspecific bruising on the right leg proximally and mid left leg. Course Administered Medications Acetaminophen (Tylenol) 325 mg PO Q6H PRN PRN Reason: Mild Pain Stop: 09/26/19 03:02 Last Admin: 08/27/19 04:59 Dose: 325 mg Documented by: [id number] Gabapentin (Neurontin) 100 mg PO TID [facility] Stop: 09/26/19 02:15 Last Admin: 08/27/19 03:30 Dose: 100 mg Documented by: [id number] Promethazine HCl 12.5 mg/ (Sodium Chloride) 50.5 mls @ 202 mls/hr IV Q6H PRN PRN Reason: Nausea And Vomiting Stop: 09/26/19 02:15 Last Infusion: 08/27/19 03:53 Dose: 0 mls/hr Documented by: [id number] Admin: 08/27/19 03:29 Dose: 202 mls/hr Documented by: [id number] Lactated Ringer's (Lr) 1,000 mls @ 200 mls/hr IV .Q5H LINDSAY Stop: 09/26/19 02:15 Last Infusion: 08/27/19 03:53 Dose: 200 mls/hr Documented by: [id number] Admin: 08/27/19 02:51 Dose: 200 mls/hr Documented by: [id number] Discontinued Medications Diphenhydramine HCl (Benadryl) 50 mg IV NOW STA Stop: 08/26/19 21:59 Last Admin: 08/26/19 22:10 Dose: 50 mg Documented by: [id number] Sodium Chloride (Nss 1000ml) 1,000 mls @ 999 mls/hr IV .Q1H1M LINDSAY Stop: 08/26/19 23:00 Last Infusion: 08/26/19 23:31 Dose: 0 mls/hr Documented by: [id number] Admin: 08/26/19 22:12 Dose: 999 mls/hr Documented by: [id number] Prochlorperazine (Compazine) 2 mls @ 1 mls/min IV ONE ONE Stop: 08/26/19 21:59 Last Admin: 08/26/19 22:10 Dose: 1 mls/min Documented by: [id number] Famotidine (Pepcid 20mg Iv Push) 20 mg in 5 mls @ 2.5 mls/min IV NOW STA Stop: 08/26/19 21:59 Last Admin: 08/26/19 22:10 Dose: 2.5 mls/min Documented by: [id number] Acetaminophen (Ofirmev) 1,000 mg in 100 mls @ 400 mls/hr IV NOW STA Stop: 08/26/19 22:12 Last Infusion: 08/26/19 22:42 Dose: 0 mls/hr Documented by: [id number] Admin: 08/26/19 22:11 Dose: 400 mls/hr Documented by: [id number] Multivitamins 10 ml/ Thiamine HCl 100 mg/ Folic Acid 1 mg/Sodium Chloride 1,011.2 mls @ 1,011.2 mls/hr IV .Q1H ONE Stop: 08/27/19 00:39 Last Infusion: 08/27/19 02:42 Dose: 0 mls/hr Documented by: [id number] Admin: 08/27/19 00:31 Dose: 1,011.2 mls/hr Documented by: [id number] Lorazepam (Ativan) 1 mg in 2 mls @ 0.5 mls/min IV NOW STA Stop: 08/27/19 00:58 Last Admin: 08/27/19 01:02 Dose: 0.5 mls/min Documented by: [id number] Famotidine (Pepcid 20mg Iv Push) 20 mg in 5 mls @ 2.5 mls/min IV NOW STA Stop: 08/27/19 01:00 Last Admin: 08/27/19 01:10 Dose: Not Given Documented by: [id number] Magnesium Sulfate/Dextrose (Magnesium Sulfate / D5w) 1 gm in 100 mls @ 100 mls/hr IV ONE ONE Stop: 08/27/19 03:44 Last Infusion: 08/27/19 04:59 Dose: 0 mls/hr Documented by: [id number] Admin: 08/27/19 03:54 Dose: 100 mls/hr Documented by: [id number] Ketorolac Tromethamine (Toradol) 15 mg IV NOW ONE Stop: 08/27/19 00:52 Last Admin: 08/27/19 01:10 Dose: Not Given Documented by: [id number] Ketorolac Tromethamine (Toradol) Confirm Administered Dose 15 mg .ROUTE .STK-MED ONE Stop: 08/27/19 01:00 Last Admin: 08/27/19 01:02 Dose: 15 mg Documented by: [id number] Ketorolac Tromethamine (Toradol) 15 mg IV NOW ONE Stop: 08/27/19 03:03 Last Admin: 08/27/19 03:38 Dose: 15 mg Documented by: [id number] Potassium Chloride (Klor-Con M20) 40 meq PO NOW STA Stop: 08/26/19 23:42 Last Admin: 08/27/19 00:08 Dose: 40 meq Documented by: [id number] Medical Decision Making Differential Diagnosis Differential diagnosis: Etiologies such as biliary colic, cholecystitis, hepatitis, pancreatitis, cardiac disease, pancreatitis, gastritis, peptic ulcer disease, appendicitis, cystitis, diverticulitis, mesenteric ischemia, inflammatory bowel disease, ileus, bowel obstruction, testicular/adnexal torsion, aortic pathology, shingles, as well as others were considered Laboratory Data Result diagrams: 08/27/19 05:21 08/26/19 22:00 Lab Results 08/26/19 08/26/19 08/26/19 Range/Units 22:00 22:00 22:13 WBC 10.36 (4.8-10.8) K/uL RBC 4.17 L (4.2-5.4) M/uL Hgb 15.1 (12.0-16.0) g/dL Hct 41.8 (37-47) % MCV 100.2 H (80-100) fL MCH 36.2 H (25-34) pg MCHC 36.1 H (32-36) g/dL RDW Std Deviation 45.3 (36.4-46.3) fL RDW Coeff of Meem 12.3 (11.5-14.5) % Plt Count 184 (130-400) K/uL MPV 9.8 (7.4-10.4) fL Immature Gran % (Auto) 0.3 % Neut % (Auto) 69.5 % Lymph % (Auto) 18.1 % [place] % (Auto) 12.0 % Eos % (Auto) 0.0 % Baso % (Auto) 0.1 % Immature Gran # (Auto) 0.03 H (0.00-0.02) K/uL Neut # (Auto) 7.21 H (1.4-6.5) K/uL Lymph # (Auto) 1.87 (1.2-3.4) K/uL [place] # (Auto) 1.24 H (0.11-0.59) K/uL Eos # (Auto) 0.00 (0-0.5) K/uL Baso # (Auto) 0.01 (0-0.2) K/uL PT (9.0-12.0) Seconds INR (0.9-1.1) Sodium 138 (136-145) mmol/L Potassium 3.3 L (3.5-5.1) mmol/L Chloride 99 (98-107) mmol/L Carbon Dioxide 22 (21-32) mmol/L Anion Gap 17.0 H (3-11) BUN 9 (7-18) mg/dl Creatinine 0.86 (0.6-1.2) mg/dl Est Cr Clr Drug Dosing 100.2 ml/min Est GFR ( Amer) 103.6 Est GFR (Non-Af Amer) 89.4 BUN/Creatinine Ratio 10.4 (10-20) Glucose 93 (70-99) mg/dl Calcium 10.3 H (8.5-10.1) mg/dl Magnesium 1.7 L (1.8-2.4) mg/dl Total Bilirubin 1.2 H (0.2-1) mg/dl AST 145 H (15-37) U/L ALT 139 H (12-78) U/L Alkaline Phosphatase 157 H (45-117) U/L Troponin I < 0.015 (0-0.045) ng/ml Total Protein 8.0 (6.4-8.2) gm/dl Albumin 4.0 (3.4-5.0) gm/dl Globulin 4.0 (2.5-4.0) gm/dl Albumin/Globulin Ratio 1.0 (0.9-2) Lipase 7867 H (73-393) U/L TSH 4.190 (0.300-4.500) uIu/ml Ethyl Alcohol mg/dL 284.2 H (0-3) mg/dl 08/26/19 Range/Units 22:17 WBC (4.8-10.8) K/uL RBC (4.2-5.4) M/uL Hgb (12.0-16.0) g/dL Hct (37-47) % MCV (80-100) fL MCH (25-34) pg MCHC (32-36) g/dL RDW Std Deviation (36.4-46.3) fL RDW Coeff of Meme (11.5-14.5) % Plt Count (130-400) K/uL MPV (7.4-10.4) fL Immature Gran % (Auto) % Neut % (Auto) % Lymph % (Auto) % [place] % (Auto) % Eos % (Auto) % Baso % (Auto) % Immature Gran # (Auto) (0.00-0.02) K/uL Neut # (Auto) (1.4-6.5) K/uL Lymph # (Auto) (1.2-3.4) K/uL [place] # (Auto) (0.11-0.59) K/uL Eos # (Auto) (0-0.5) K/uL Baso # (Auto) (0-0.2) K/uL PT 11.0 (9.0-12.0) Seconds INR 1.0 (0.9-1.1) Sodium (136-145) mmol/L Potassium (3.5-5.1) mmol/L Chloride (98-107) mmol/L Carbon Dioxide (21-32) mmol/L Anion Gap (3-11) BUN (7-18) mg/dl Creatinine (0.6-1.2) mg/dl Est Cr Clr Drug Dosing ml/min Est GFR ( Amer) Est GFR (Non-Af Amer) BUN/Creatinine Ratio (10-20) Glucose (70-99) mg/dl Calcium (8.5-10.1) mg/dl Magnesium (1.8-2.4) mg/dl Total Bilirubin (0.2-1) mg/dl AST (15-37) U/L ALT (12-78) U/L Alkaline Phosphatase (45-117) U/L Troponin I (0-0.045) ng/ml Total Protein (6.4-8.2) gm/dl Albumin (3.4-5.0) gm/dl Globulin (2.5-4.0) gm/dl Albumin/Globulin Ratio (0.9-2) Lipase (73-393) U/L TSH (0.300-4.500) uIu/ml Ethyl Alcohol mg/dL (0-3) mg/dl Imaging Data Radiologist's Impression: Preliminary Findings Only See Final Report For Complete Findings US GALLBLADDER: Compared to 02/02/17 Increased and coarsened hepatic echotexture suggesting steatosis or other hepatocellular disease. No gallstones or other biliary pathology. MDM Narrative Physical exam and history were performed. Nursing notes, EMR, and Medication List were personally reviewed. Patient appears to have epigastric abdominal pain and vomiting bringing her to the ER. The patient is very difficult to redirect and is only minimally cooperative with exam. Because of this physical exam is limited. Ultimately IV access was established and labs were obtained. Ultrasound was performed to further evaluate her symptoms. She was given IV Tylenol, Benadryl, Compazine, Pepcid, and saline here in the ER. The patient's blood work is as above and was reviewed. She does not have a significantly elevated white blood cell count or gross anemia. Transaminases are elevated in the roughly 150s. Lipase is notably elevated at 7800. Troponin x1 is negative. Alcohol is also elevated at 284. Ultrasound was reviewed by myself and radiology showing no acute process to explain her symptoms. On reevaluation the patient is asking to eat and drink. She was educated that she is to have nothing by mouth as she seems to have acute alcohol induced pancreatitis. The patient was given a banana bag. She did feel better after analgesics here in the ER. Overall she is not well for discharge home. The case was discussed with the on-call [facility] hospitalist, who agreed to evaluate her here in the ER. Please see their dictation for further patient course, plan, and disposition. The chart was completed utilizing [employer] Speech Voice Recognition Software. Grammatical errors, random word insertions, pronoun errors, and incomplete sentences are an occasional consequence of this system due to software limita tions, ambient noise, and hardware issues. Any formal questions or concerns about the content, text, or information contained within the body of this dictation should be directly addressed to the provider for clarification. . Impression & Plan Acute alcoholic pancreatitis, Epigastric abdominal pain, Nausea and vomiting Discharge Plan Visit Data *Final* Discharge Date/Time: 08/27/19 01:08 Chief Complaint: Abdominal Pain Stated Complaint: AB PAIN ED Provider: Felice Chan ED Midlevel Provider: Mason Bryan Discharge Problem: Acute alcoholic pancreatitis, Epigastric abdominal pain, Nausea and vomiting Patient Disposition: Admitted As Inpatient Discharge Instructions Interventions: ED Discharge Assessment Last Done: 08/27/19 01:08 Discharge Problem: Acute alcoholic pancreatitis Qualifiers: Acute pancreatitis complication: unspecified Qualified Code(s): K85.20 - Alcohol induced acute pancreatitis without necrosis or infection Nausea and vomiting Qualifiers: Vomiting type: unspecified Vomiting Intractability: non-intractable Qualified Code(s): R11.2 - Nausea with vomiting, unspecified
[2019-08-26] MEDS ORDERED: MULTI-VITAMIN INFUSION 10 ML, THIAMINE HCL 100 MG, FOLIC ACID 1 MG in SODIUM CHLORIDE 0... IV ONE ×2 (23:40→23:41)
[2019-08-26] MEDS ORDERED: POTASSIUM CHLORIDE 20 MEQ TABCR PO STA (23:41)
[2019-08-27] MEDS ORDERED: KETOROLAC TROMETHAMINE 15 MG/ML VIAL IV ONE ×2 (00:51→03:02)
[2019-08-27] MEDS ORDERED: LORazepam 1 MG/2 ML VIAL IV STA (00:55)
[2019-08-27] MEDS ORDERED: KETOROLAC TROMETHAMINE 15 MG/ML VIAL ONE (00:59)
[2019-08-27] MEDS ORDERED: FAMOTIDINE 20MG IV PUSH 20 MG/5 ML SYR IV STA (00:59)
--- NOTE | 2019-08-27 01:00 | History & Physical Report ---
Date of Service August 27, 2019 Assessment & Plan (1) Acute alcoholic pancreatitis: Alcoholic hepatitis, good prognosis w DF of 3.5 points Hypokalemia secondary to emesis mood disorder, at baseline History opioid abuse as per records ongoing tobacco abuse Medical telemetry Bowel rest, IVF Judicious narcotic use given history of opioid abuse GI consult RE pancreatitis DT precautions Replace electrolytes. Nicotine patch PRN DVT prophylaxis. Lovenox subcu Full code Text document was generated using QBE voice recognition software. It may contain grammatical or spelling errors. Kindly contact undersigned for clarification of any documentation item in question. History of Present Illness Chief Complaint: Abdominal pain Primary Care Provider: Dr. Islas History obtained from patient and records. Medical history significant for mood disorder, history opioid abuse as per records, ongoing tobacco/alcohol abuse. Last confinement 2015 for vaginal delivery under [employer] service. 2 days history of burning epigastric pain with nausea and emesis. Mild constipation. No fever, no chills. No chest pain, no S OB. Admits to drinking alcohol heavily from time to time. 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 Allergies Allergy/AdvReac Type Severity Reaction Status Date / Time Penicillins Allergy Intermediate HIVES Verified 08/26/19 23:31 Home Medications Home Medications Medication Instructions Recorded Confirmed Type bupropion HCl [Wellbutrin SR] 300 mg PO DAILY 08/26/19 08/26/19 History gabapentin 100 mg PO TID 08/26/19 08/26/19 History Past Med/Surg History Social History Preferred Language: Citizen Of [place] Communication Ability: Effective 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: No Beliefs That Will Affect Care: None Current Living Situation: Alone Other Information That Helps Us Care for You: No Feels Safe at Home: Yes Safety Concerns: Feels Safe At This Time Smoking Status: Current every day smoker Tobacco Type: cigarettes ; Do You Dip or Chew Tobacco: No ; Second Hand Exposure: Yes ; Tobacco Cessation Education Requested by Patient: No Hx Alcohol Use: Yes Alcohol type: wine Hx Substance Use: No Review of Systems Review of Systems: As per HPI, all 10 systems reviewed, all other ROS negative Physical Exam Physical Exam: GENERAL: uncomfortable, looks older than stated age, no respiratory distress SKIN: Normal color, warm HEENT: [place] palpebral conjunctivae, no ptosis, dry buccal mucosa NECK : Supple, no tenderness CHEST : CTA, no tenderness HEART : RRR, no obvious murmurs ABDOMEN: Some distention, patient refusing palpation secondary to pain EXTREMITIES : No LE swelling/tenderness, no other conspicuous deformities noted NEUROLOGIC : Coherent, no facial asymmetry, no other gross focality Results & Data Results & Data ([facility]) Vital Signs (Past 12 Hours) Vital Signs Temp Pulse Resp BP Pulse Ox 08/26/19 22:23 97 08/26/19 21:15 36.7 C 98 H 24 127/100 99 Laboratory Results Laboratory Results WBC 10.36 K/uL (4.8-10.8) 08/26/19 22:00 RBC 4.17 M/uL (4.2-5.4) L 08/26/19 22:00 Hgb 15.1 g/dL (12.0-16.0) 08/26/19 22:00 Hct 41.8 % (37-47) 08/26/19 22:00 MCV 100.2 fL (80-100) H 08/26/19 22:00 MCH 36.2 pg (25-34) H 08/26/19 22:00 MCHC 36.1 g/dL (32-36) H 08/26/19 22:00 RDW Std Deviation 45.3 fL (36.4-46.3) 08/26/19 22:00 RDW Coeff of Meme 12.3 % (11.5-14.5) 08/26/19 22:00 Plt Count 184 K/uL (130-400) 08/26/19 22:00 MPV 9.8 fL (7.4-10.4) 08/26/19 22:00 Immature Gran % (Auto) 0.3 % 08/26/19 22:00 Neut % (Auto) 69.5 % 08/26/19 22:00 Lymph % (Auto) 18.1 % 08/26/19 22:00 [place] % (Auto) 12.0 % 08/26/19 22:00 Eos % (Auto) 0.0 % 08/26/19 22:00 Baso % (Auto) 0.1 % 08/26/19 22:00 Immature Gran # (Auto) 0.03 K/uL (0.00-0.02) H 08/26/19 22:00 Neut # (Auto) 7.21 K/uL (1.4-6.5) H 08/26/19 22:00 Lymph # (Auto) 1.87 K/uL (1.2-3.4) 08/26/19 22:00 [place] # (Auto) 1.24 K/uL (0.11-0.59) H 08/26/19 22:00 Eos # (Auto) 0.00 K/uL (0-0.5) 08/26/19 22:00 Baso # (Auto) 0.01 K/uL (0-0.2) 08/26/19 22:00 PT 11.0 Seconds (9.0-12.0) 08/26/19 22:17 INR 1.0 (0.9-1.1) 08/26/19 22:17 Sodium 138 mmol/L (136-145) 08/26/19 22:00 Potassium 3.3 mmol/L (3.5-5.1) L 08/26/19 22:00 Chloride 99 mmol/L (98-107) 08/26/19 22:00 Carbon Dioxide 22 mmol/L (21-32) 08/26/19 22:00 Anion Gap 17.0 (3-11) H 08/26/19 22:00 BUN 9 mg/dl (7-18) 08/26/19 22:00 Creatinine 0.86 mg/dl (0.6-1.2) 08/26/19 22:00 Est Cr Clr Drug Dosing 100.2 ml/min 08/26/19 22:00 Est GFR ( Amer) 103.6 08/26/19 22:00 Est GFR (Non-Af Amer) 89.4 08/26/19 22:00 BUN/Creatinine Ratio 10.4 (10-20) 08/26/19 22:00 Glucose 93 mg/dl (70-99) 08/26/19 22:00 Calcium 10.3 mg/dl (8.5-10.1) H 08/26/19 22:00 Magnesium 1.7 mg/dl (1.8-2.4) L 08/26/19 22:00 Total Bilirubin 1.2 mg/dl (0.2-1) H 08/26/19 22:00 AST 145 U/L (15-37) H 08/26/19 22:00 ALT 139 U/L (12-78) H 08/26/19 22:00 Alkaline Phosphatase 157 U/L (45-117) H 08/26/19 22:00 Troponin I < 0.015 ng/ml (0-0.045) 08/26/19 22:00 Total Protein 8.0 gm/dl (6.4-8.2) 08/26/19 22:00 Albumin 4.0 gm/dl (3.4-5.0) 08/26/19 22:00 Globulin 4.0 gm/dl (2.5-4.0) 08/26/19 22:00 Albumin/Globulin Ratio 1.0 (0.9-2) 08/26/19 22:00 Lipase 7867 U/L (73-393) H 08/26/19 22:00 TSH 4.190 uIu/ml (0.300-4.500) 08/26/19 22:00 Ethyl Alcohol mg/dL 284.2 mg/dl (0-3) H 08/26/19 22:13 Diagnostic Findings KUB x-ray as per my interpretation no bowel obstruction Ultrasound gallbladder initial read: Hepatic steatosis. No gallstones or other biliary pathology. Code Status & VTE Plan VTE Prophylaxis Plan VTE Prophylaxis will be ordered: Yes (1) Acute alcoholic pancreatitis Acute pancreatitis complication: unspecified Qualified Code(s): K85.20 - Alcohol induced acute pancreatitis without necrosis or infection
[2019-08-27] MEDS ORDERED: LORazepam 3 MG/6 ML VIAL IV PRN (02:16)
[2019-08-27] MEDS ORDERED: ATIVAN IV ALCOHOL WITHDRAWL IV PRN (02:16)
[2019-08-27] MEDS ORDERED: MAGNESIUM SULFATE / D5W 1 GM/100 ML BAG IV ONE ×2 (02:45→22:32)
[2019-08-27] MEDS: LACTATED RINGER'S 1,000 ML IV SCH ×4 (02:51→19:55)
[2019-08-27] MEDS ORDERED: MoRPHine SULFATE 4 MG/ML 1 ML CARP\\VIAL IV PRN ×2 (03:02→03:35)
[2019-08-27] MEDS: PROMETHAZINE HCL 12.5 MG in SODIUM CHLORIDE 0.9% 50 ML IV PRN ×2 (03:29→10:31)
[2019-08-27] MEDS: GABAPENTIN 100 MG CAP PO SCH ×2 (03:30→08:09)
[2019-08-27] MEDS ORDERED: POLYETHYLENE (MIRALAX) 17 GM PACK PO PRN (03:35)
[2019-08-27] MEDS: ACETAMINOPHEN 325 MG TAB PO PRN (04:59)
[2019-08-27 06:00] LABS: Hematocrit (blood only) 40.7 % (37-47); Hemoglobin 14.1 g/dL (12.0-16.0); Immature Granulocytes # (auto) 0.02 K/uL (0.00-0.02); Immature Granulocytes % (auto) 0.2 %; Lymphocytes # (auto) 0.58 K/uL (1.2-3.4); Lymphocytes % (auto) 5.8 %; Mean Corpuscular Hemoglobin 35.5 pg (25-34); Mean Corpuscular Hgb Conc 34.6 g/dL (32-36); Mean Corpuscular Volume 102.5 fL (80-100); Mean Platelet Volume 10.1 fL (7.4-10.4); Monocytes # (auto) 1.15 K/uL (0.11-0.59); Monocytes % (auto) 11.4 %; Neutrophils # (auto) 8.32 K/uL (1.4-6.5); Neutrophils % (auto) 82.6 %; Platelet Count 137 K/uL (130-400); RDW Coefficient of Variation 12.2 % (11.5-14.5); RDW Standard Deviation 46.2 fL (36.4-46.3); Red Blood Count 3.97 M/uL (4.2-5.4); White Blood Count 10.07 K/uL (4.8-10.8)
--- NOTE | 2019-08-27 06:38 | XRay Report ---
KUB CLINICAL HISTORY: Upper abdominal pain. COMPARISON STUDY: KUB June 14, 2012. FINDINGS: Prominent gas-filled loops of small large bowel are noted. There is a [id number] amou nt stool within the colon. There is no evidence for a bowel obstruction. No calcifications are identi fied. Visualized skeletal structures are unremarkable. IMPRESSION: Prominent gas-filled loops of small large bowel without convincing evidence for a bowel o bstruction. ACT 112: Negative or not required by law. Electronically signed by: Ronak Benavidez M.D. 08/27/2019 6:37 AM
[2019-08-27 06:40] LABS: Albumin Globulin Ratio 1.1 (0.9-2); Albumin Level 3.6 gm/dl (3.4-5.0); BUN Creatinine Ratio 13.7 (10-20); Bilirubin,Total 1.4 mg/dl (0.2-1); Calcium 8.3 mg/dl (8.5-10.1); Creatinine Clr Calc Pharmacy 137.5 ml/min; Est GFR (African American) 143.8; Est GFR (Non-African American) 124.1; Globulin 3.3 gm/dl (2.5-4.0); Magnesium 2.1 mg/dl (1.8-2.4); Potassium 3.6 mmol/L (3.5-5.1); Total Protein 6.9 gm/dl (6.4-8.2)
--- NOTE | 2019-08-27 07:23 | Ultrasound Report ---
US gallbladder CLINICAL HISTORY: Epigastric pain. COMPARISON STUDY: Right upper quadrant ultrasound February 02, 2017. FINDINGS: Hepatic echogenicity is increased. No hepatic lesions are identified. There is no biliary d uctal dilatation. The common bile duct measures 4 mm in caliber. The gallbladder is normal. There are no gallstones. Pancreas is largely obscured. There is no right hydronephrosis. IMPRESSION: 1. No gallstones or biliary ductal dilatation. 2. Increased hepatic echogenicity suggestive of fatty infiltration. ACT 112: Negative or not required by law. Electronically signed by: Ronak Benavidez M.D. 08/27/2019 7:21 AM
[2019-08-27] MEDS: OXYCODONE HCL IR 5 MG TAB (IMMEDIATE RELEASE) PO PRN ×2 (08:02→18:38)
[2019-08-27] MEDS: FOLIC ACID 1 MG TAB PO SCH (08:08)
[2019-08-27] MEDS: THIAMINE HCL 100 MG TAB PO SCH (08:08)
[2019-08-27] MEDS: MULTIVITAMIN TAB PO SCH (08:08)
[2019-08-27] MEDS: BuPROPion SR 150 MG TABCR PO SCH (08:08)
[2019-08-27] MEDS: DOCUSATE SODIUM/SENNA 50/8.6MG TAB PO SCH (08:11)
[2019-08-27] MEDS: ENOXAPARIN INJ 40 MG/0.4 ML SYR SQ SCH (08:12)
--- NOTE | 2019-08-27 09:21 | Gastrointestinal Consultation ---
Date of Consultation August 27, 2019 Assessment & Plan (1) Acute alcoholic pancreatitis: 34 year old female with history of ETOH abuse daily, last ETOH yesterday admitted w/ suspected ETOH pancreatitis, ETOh hepatitis. ABD US without gallstones or biliary obstruction but she does have elevated transaminases NPO LR 200 mL/hr Antiemetics PRN Analgesia PRN MRCP Strict ETOH cessation was recommended ETOH withdrawal protocol DF less than 32 Send acute hep panel Thank you for allowing us to participate in the care of this patient. Please call with any acute changes, questions or concerns. Please see addendum below with additional recommendation from my supervising physician. Present on Admission?: Yes Supervising Physician Co-Signing Physician Notes I performed a history and physical examination of the patient today, including specifically on physical exam - soft abdomen. I have discussed the patient's management with the advanced practitioner. Please refer to the nurse practitioner's note for the documented findings and plan of care. Likely mild alcoholic related pancreatitis. IV Hydration. Monitor LFT Clear liquid diet. MRCP. History of Present Illness Reason for Consultation: pancreatitis Requesting Physician: hieu Attending Physician: Rosalinda Mckeon, DO History of Present Illness 34 year old female with history of ongoing ETOH abuse who presented through the ED via EMS for evaluation of abdominal pain x 1 day - GI asked to evaluate for pancreatitis. She notes abrupt onset severe epigaistrc pain that started yesterday. Constant. Severe. Radiates under both breasts and into her back. Associated with nausea, vomiting. No blakc/bloody stools. No lower GI symptoms specifically no diarrhea/constipation/black/bloody stools. No fever, chills, CP, SOB. Started a mutivitamin a few months ago No other new medications Drinks ETOH daily, liquid. Suggests a handle of liquor will last her between 2/3 days. Has been using ETOH this heavily x 1 year Denies other drug use. ABD US reviewed. No gallstones or biliary ductal dilatation. Increased hepatic echogenicity suggestive of fatty infiltration. KUB reviewed w/ [id number] amount stool within the colon w/o evidence for a bowel obstruction Allergies Allergy/AdvReac Type Severity Reaction Status Date / Time Penicillins Allergy Intermediate HIVES Verified 08/26/19 23:31 Home Medications Home Medications Medication Instructions Recorded Confirmed Type bupropion HCl [Wellbutrin SR] 300 mg PO DAILY 08/26/19 08/26/19 History gabapentin 100 mg PO TID 08/26/19 08/26/19 History Patient History Social History Preferred Language: Russian Communication Ability: Effective Patrol Sergeant Required: No Beliefs That Will Affect Care: None Current Living Situation: Alone Other Information That Helps Us Care for You: No Feels Safe at Home: Yes Safety Concerns: Feels Safe At This Time Smoking Status: Current every day smoker Tobacco Type: cigarettes ; Do You Dip or Chew Tobacco: No ; Second Hand Exposure: Yes ; Tobacco Cessation Education Requested by Patient: No Hx Alcohol Use: Yes Alcohol type: wine Hx Substance Use: No Review of Systems Constitutional: no fever and no chills Respiratory: no cough and no dyspnea Cardiovascular: no chest pain and no dyspnea Gastrointestinal: + abdominal pain and + nausea; no change in bowel habits, no blood in stools and no melena Physical Exam Constitutional: + acute distress (pain reported) and + ill appearing Neck: trachea midline Respiratory: normal respiratory effort Cardiovascular: Rate/Rhythm: regular rate and regular rhythm Gastrointestinal (Abdomen): Percussion/Palpation: + abdomen tender and abdomen soft; no guarding and abdomen not rigid Skin: no rashes, warm and dry Results & Data ([facility]) Vital Signs (Past 12 Hours) Vital Signs Temp Pulse Pulse Resp BP BP Pulse Ox 08/27/19 07:44 36.5 C 77 18 135/88 94 08/27/19 02:59 36.5 C 105 H 87 14 122/75 98 08/27/19 01:08 74 18 128/74 97 08/26/19 22:23 97 Pulse Ox 08/27/19 07:44 08/27/19 02:59 98 08/27/19 01:08 08/26/19 22:23 Laboratory Results 08/27/19 08/27/19 08/26/19 Range/Units 05:21 05:21 22:17 WBC 10.07 (4.8-10.8) K/uL RBC 3.97 L (4.2-5.4) M/uL Hgb 14.1 (12.0-16.0) g/dL Hct 40.7 (37-47) % MCV 102.5 H (80-100) fL MCH 35.5 H (25-34) pg MCHC 34.6 (32-36) g/dL RDW Std Deviation 46.2 (36.4-46.3) fL RDW Coeff of Meme 12.2 (11.5-14.5) % Plt Count 137 (130-400) K/uL MPV 10.1 (7.4-10.4) fL Immature Gran % (Auto) 0.2 % Neut % (Auto) 82.6 % Lymph % (Auto) 5.8 % [place] % (Auto) 11.4 % Eos % (Auto) 0.0 % Baso % (Auto) 0.0 % Immature Gran # (Auto) 0.02 (0.00-0.02) K/uL Neut # (Auto) 8.32 H (1.4-6.5) K/uL Lymph # (Auto) 0.58 L (1.2-3.4) K/uL [place] # (Auto) 1.15 H (0.11-0.59) K/uL Eos # (Auto) 0.00 (0-0.5) K/uL Baso # (Auto) 0.00 (0-0.2) K/uL PT 11.0 (9.0-12.0) Seconds INR 1.0 (0.9-1.1) Sodium 137 (136-145) mmol/L Potassium 3.6 (3.5-5.1) mmol/L Chloride 102 (98-107) mmol/L Carbon Dioxide 24 (21-32) mmol/L Anion Gap 11.0 (3-11) BUN 8 (7-18) mg/dl Creatinine 0.55 L D (0.6-1.2) mg/dl Est Cr Clr Drug Dosing 137.5 ml/min Est GFR ( Amer) 143.8 Est GFR (Non-Af Amer) 124.1 BUN/Creatinine Ratio 13.7 (10-20) Glucose 92 (70-99) mg/dl Calcium 8.3 L D (8.5-10.1) mg/dl Magnesium 2.1 (1.8-2.4) mg/dl Total Bilirubin 1.4 H (0.2-1) mg/dl AST 102 H (15-37) U/L ALT 112 H (12-78) U/L Alkaline Phosphatase 129 H (45-117) U/L Troponin I (0-0.045) ng/ml Total Protein 6.9 (6.4-8.2) gm/dl Albumin 3.6 (3.4-5.0) gm/dl Globulin 3.3 (2.5-4.0) gm/dl Albumin/Globulin Ratio 1.1 (0.9-2) Lipase (73-393) U/L TSH (0.300-4.500) uIu/ml Ethyl Alcohol mg/dL (0-3) mg/dl 08/26/19 08/26/19 08/26/19 Range/Units 22:13 22:00 22:00 WBC 10.36 (4.8-10.8) K/uL RBC 4.17 L (4.2-5.4) M/uL Hgb 15.1 (12.0-16.0) g/dL Hct 41.8 (37-47) % MCV 100.2 H (80-100) fL MCH 36.2 H (25-34) pg MCHC 36.1 H (32-36) g/dL RDW Std Deviation 45.3 (36.4-46.3) fL RDW Coeff of Meme 12.3 (11.5-14.5) % Plt Count 184 (130-400) K/uL MPV 9.8 (7.4-10.4) fL Immature Gran % (Auto) 0.3 % Neut % (Auto) 69.5 % Lymph % (Auto) 18.1 % [place] % (Auto) 12.0 % Eos % (Auto) 0.0 % Baso % (Auto) 0.1 % Immature Gran # (Auto) 0.03 H (0.00-0.02) K/uL Neut # (Auto) 7.21 H (1.4-6.5) K/uL Lymph # (Auto) 1.87 (1.2-3.4) K/uL [place] # (Auto) 1.24 H (0.11-0.59) K/uL Eos # (Auto) 0.00 (0-0.5) K/uL Baso # (Auto) 0.01 (0-0.2) K/uL PT (9.0-12.0) Seconds INR (0.9-1.1) Sodium 138 (136-145) mmol/L Potassium 3.3 L (3.5-5.1) mmol/L Chloride 99 (98-107) mmol/L Carbon Dioxide 22 (21-32) mmol/L Anion Gap 17.0 H (3-11) BUN 9 (7-18) mg/dl Creatinine 0.86 (0.6-1.2) mg/dl Est Cr Clr Drug Dosing 100.2 ml/min Est GFR ( Amer) 103.6 Est GFR (Non-Af Amer) 89.4 BUN/Creatinine Ratio 10.4 (10-20) Glucose 93 (70-99) mg/dl Calcium 10.3 H (8.5-10.1) mg/dl Magnesium 1.7 L (1.8-2.4) mg/dl Total Bilirubin 1.2 H (0.2-1) mg/dl AST 145 H (15-37) U/L ALT 139 H (12-78) U/L Alkaline Phosphatase 157 H (45-117) U/L Troponin I < 0.015 (0-0.045) ng/ml Total Protein 8.0 (6.4-8.2) gm/dl Albumin 4.0 (3.4-5.0) gm/dl Globulin 4.0 (2.5-4.0) gm/dl Albumin/Globulin Ratio 1.0 (0.9-2) Lipase 7867 H (73-393) U/L TSH 4.190 (0.300-4.500) uIu/ml Ethyl Alcohol mg/dL 284.2 H (0-3) mg/dl (1) Acute alcoholic pancreatitis Acute pancreatitis complication: unspecified Qualified Code(s): K85.20 - Alcohol induced acute pancreatitis without necrosis or infection
[2019-08-27] MEDS: KETOROLAC TROMETHAMINE 15 MG/ML VIAL IV PRN ×2 (09:32→14:54)
--- NOTE | 2019-08-27 10:08 | Hospitalist Progress Note ---
Date of Service August 27, 2019 Assessment & Plan (1) Acute alcoholic pancreatitis: cont lactated ringers. Trend lipase and monitor with serial abdominal exams and clinical symptoms. MRCP negative for stones. (2) Elevated transaminase level: Likely related to acute pancreatitis +/-alcohol use. Trend in am with treatment. (3) Alcohol withdrawal: Transitioned her to gabapentin taper and Ativan IV as needed. Avoid intravenous narcotics and benzos simultaneously. Stop Welbutrin to avoid lowering seizure threshold. (4) Alcohol abuse: Will need to formulate a plan for rehab prior to discharge. (5) Mood disorder: hold Welbutrin as above. (6) DVT prophylaxis: Lovenox-declined by patient Full code Dispo-cont [facility]. [facility] and Anticipated Discharge Date Admission Date: August 27, 2019 Subjective 34 yo F alcoholic presenting with acute pancreatitis. Patient reports severe pain that began yesterday and was severe prompting several episodes of vomiting. She has a significant drinking history and reports drinking "all day" usually. She was intolxicated on admission and it is clear she is starting to withdrawal. ROS is limited as she is impatient 2/2 severe abdominal pain with anxiety and tremulousness. She underwent MRCP that was negative for gallstones. GI evaluated her today. She remains NPO with LR running @ 200/hr. She was started on gabapentin taper and received 3 mg IV Ativan with a good result. Review of Systems Review of Systems: All systems reviewed & are unremarkable except as noted in Subjective Physical Exam Physical Exam: CONSTITUTIONAL: WNWD, vitals as above, generally ill- appearing, anxious EYES: pupils are equal and round bilaterally, normal conjunctivae, no scleral icterus ENT: external ear and nose normal, mucous membranes are dry NECK: trachea midline RESPIRATORY: clear to auscultation bilaterally, no crackles, rales or wheezes, normal respiratory effort CARDIOVASCULAR: regular rate and rhythm, S1 and 2 heard without murmurs, gallops or rubs, no JVD, no peripheral edema GASTROINTESTINAL: soft, exquisite TTP in epigastric area and somem guarding present. Slightly distended. MUSCULOSKELETAL: limited exam as patient in distress but she was able to ambulate independently to the wheelchair SKIN: warm and dry, some noted ecchymosis on her arms in places NEUROLOGIC: CN 2-12 grossly intact, no sensory deficit, normal cognition, normal speech, some tremulousness. No gross focal deficits. PSYCHIATRIC: alert cooperative and oriented to person, place and time. Anxi ous, in pain Results & Data Results & Data ([facility]) Vital Signs (Past 12 Hours) Vital Signs Temp Pulse Pulse Resp BP BP Pulse Ox 08/27/19 07:44 36.5 C 77 18 135/88 94 08/27/19 02:59 36.5 C 105 H 87 14 122/75 98 08/27/19 01:08 74 18 128/74 97 08/26/19 22:23 97 Pulse Ox 08/27/19 07:44 08/27/19 02:59 98 08/27/19 01:08 08/26/19 22:23 Laboratory Results Short CBC 08/26/19 08/27/19 Range/Units 22:00 05:21 WBC 10.36 10.07 (4.8-10.8) K/uL Hgb 15.1 14.1 (12.0-16.0) g/dL Hct 41.8 40.7 (37-47) % Plt Count 184 137 (130-400) K/uL BMP 08/26/19 08/27/19 22:00 05:21 Sodium 138 137 Potassium 3.3 L 3.6 Chloride 99 102 Carbon Dioxide 22 24 BUN 9 8 Creatinine 0.86 0.55 L D Glucose 93 92 Calcium 10.3 H 8.3 L D Cardiac Enzymes 08/26/19 Range/Units 22:00 Troponin I < 0.015 (0-0.045) ng/ml Liver Function 08/26/19 08/27/19 Range/Units 22:00 05:21 Total Bilirubin 1.2 H 1.4 H (0.2-1) mg/dl AST 145 H 102 H (15-37) U/L ALT 139 H 112 H (12-78) U/L Alkaline Phosphatase 157 H 129 H (45-117) U/L Albumin 4.0 3.6 (3.4-5.0) gm/dl Medications Administered Current Inpatient Medications Acetaminophen (Tylenol) 325 mg PO Q6H PRN PRN Reason: Mild Pain Stop: 09/26/19 03:02 Last Admin: 08/27/19 04:59 Dose: 325 mg Documented by: Bupropion HCl (Wellbutrin-Sr) 300 mg PO DAILY [facility] Stop: 09/26/19 08:59 Last Admin: 08/27/19 08:08 Dose: 300 mg Documented by: Enoxaparin Sodium (Lovenox) 40 mg SQ QAM [facility] Stop: 09/26/19 08:59 Last Admin: 08/27/19 08:12 Dose: Not Given Documented by: Folic Acid (Folvite) 1 mg PO QAM [facility] Stop: 09/26/19 08:59 Last Admin: 08/27/19 08:08 Dose: 1 mg Documented by: Gabapentin (Neurontin) 100 mg PO TID [facility] Stop: 09/26/19 02:15 Last Admin: 08/27/19 08:09 Dose: 100 mg Documented by: Promethazine HCl 12.5 mg/ (Sodium Chloride) 50.5 mls @ 202 mls/hr IV Q6H PRN PRN Reason: Nausea And Vomiting Stop: 09/26/19 02:15 Last Infusion: 08/27/19 03:53 Dose: Infused Documented by: Lorazepam (Ativan) 1 mg in 2 mls @ 2 mls/min IV UD PRN; Protocol PRN Reason: EtOH Withdrawl AWSS Score 6,7 Stop: 09/26/19 02:15 Lorazepam (Ativan) 2 mg in 4 mls @ 4 mls/min IV UD PRN; Protocol PRN Reason: EtOH Withdrawl AWSS Score 8,9 Stop: 09/26/19 02:15 Lorazepam (Ativan) 3 mg in 6 mls @ 4 mls/min IV ONCE PRN; Protocol PRN Reason: EtOH Withdrawl AWSS Score >=10 Stop: 09/26/19 02:15 Lactated Ringer's (Lr) 1,000 mls @ 200 mls/hr IV .Q5H [facility] Stop: 09/26/19 02:15 Last Admin: 08/27/19 08:03 Dose: 200 mls/hr Documented by: Ketorolac Tromethamine (Toradol) 15 mg IV Q6H PRN PRN Reason: Pain Stop: 09/01/19 03:35 Last Admin: 08/27/19 09:32 Dose: 15 mg Documented by: Multivitamins (Multivitamin Tab) 1 tab PO [facility] Stop: 09/26/19 08:59 Last Admin: 08/27/19 08:08 Dose: 1 tab Documented by: Oxycodone HCl (Roxicodone Immediate Rel) 5 mg PO Q4H PRN PRN Reason: Pain Stop: 09/10/19 03:01 Last Admin: 08/27/19 08:02 Dose: 5 mg Documented by: Polyethylene Glycol (Miralax Powder Packet) 17 gm PO DAILY PRN PRN Reason: Constipation Stop: 09/26/19 03:34 Senna/Docusate Sodium (Senokot S) 1 tab PO [facility] Stop: 09/26/19 08:59 Last Admin: 08/27/19 08:11 Dose: 1 tab Documented by: Thiamine HCl ([facility]itamin B-1) [facility] Stop: 09/26/19 08:59 Last Admin: 08/27/19 08:08 Dose: 100 mg Documented by: (1) Acute alcoholic pancreatitis Acute pancreatitis complication: unspecified Qualified Code(s): K85.20 - Alcohol induced acute pancreatitis without necrosis or infection
[2019-08-27] MEDS: HYDROmorphone INJ 0.5 MG/0.5 ML SYR IV PRN ×2 (11:11→19:20)
[2019-08-27] MEDS ORDERED: HYDROmorphone INJ 0.5 MG/0.5 ML SYR IV STA (12:56)
[2019-08-27] MEDS ORDERED: GABAPENTIN 1200MG ALCOHOL WITHDRAWAL LOAD PO STA (12:58)
[2019-08-27] MEDS ORDERED: GABAPENTIN 600 MG TAB PO SCH (14:00)
--- NOTE | 2019-08-27 14:09 | Magnetic Resonance Report ---
MRCP CLINICAL HISTORY: acute pancreatitis, rule out gallstones TECHNIQUE: Utilizing a 1.5 Deborah magnet and dedicated coil, multiplanar, multiecho imaging of the [facility] er abdomen was performed utilizing heavily T2 weighted pulsing sequences without IV contrast. COMPARISON STUDY: Right upper quadrant ultrasound August 26, 2019. FINDINGS: No intra or extra hepatic biliary ductal dilatation is identified. No common bile duct calc emmanuel are identified. No gallstones are identified. The gallbladder is not distended. There has been in terval development of extensive upper abdominal fluid centered on the pancreas. The pancreas is edema tous. Pancreatic necrosis cannot be assessed for on this unenhanced examination. There are no peripan creatic fluid collections. No hepatic lesions are identified. Fatty infiltration of the liver is bett er depicted on prior ultrasound. Unenhanced images of the spleen and adrenal glands as well as the ki dneys are unremarkable. There is no hydronephrosis. The caliber of visualized small and large bowel i s normal. IMPRESSION: 1. No biliary duct dilatation. No choledocholithiasis identified. No gallstones identified. 2. Interval development of extensive upper abdominal fluid centered on the pancreas. Edematous enlarg ed pancreas consistent with acute pancreatitis. No peripancreatic fluid collections. ACT 112: Negative or not required by law. Electronically signed by: Ronak Benavidez M.D. 08/27/2019 2:07 PM
[2019-08-27] MEDS ORDERED: Nursing to Pharmacy Communication SCH (18:45)
--- NOTE | 2019-08-27 19:15 | Electrocardiogram Report ---
Test Reason : Blood Pressure : / mmHG Vent. Rate : 096 BPM Atrial Rate : 096 BPM P-R Int : 174 ms QRS Dur : 100 ms QT Int : 384 ms P-R-T Axes : 070 068 028 degrees QTc Int : 485 ms Poor data quality, interpretation may be adversely affected Normal sinus rhythm Prolonged QT Abnormal ECG When compared with ECG of 02-FEB-2017 13:14, Borderline criteria for Anterior infarct are no longer Present Borderline criteria for Anterolateral infarct are no longer Present T wave inversion no longer evident in Anterior leads Confirmed by Girma Saha ([id number]) on 08/27/2019 7:14:50 PM Referred By: REFERRED SELF Confirmed By:David Saha
[2019-08-27] MEDS: GABAPENTIN 600 MG TAB PO SCH (19:57)
[2019-08-27] MEDS ORDERED: SODIUM CHLORIDE 0.9% 1000ML 1,000 ML IV ONE ×2 (22:28→23:58)
[2019-08-27] MEDS ORDERED: POTASSIUM CHLORIDE 20 MEQ TABCR PO STA (22:32)
[2019-08-27] MEDS ORDERED: DIGOXIN 250 MCG in SYRINGE 9 ML IV STA (22:34)
--- NOTE | 2019-08-27 22:35 | Communication Note ---
Date of Service: August 27, 2019 Overnight developments : 08/26 1020 PM Made aware by RN of heart rate 170-180s upon patient returned to bed from the toilet. Transient SVT on the monitor as per staff. SBP 80s. Patient denies chest pain, S OB. Abdominal pain the same. Patient groggy as per RN. NSS bolus ordered. Patient cardiac rate currently 130s at time of bedside exam. Patient lethargic. " Just tired," as per patient. SBP currently 130s. EKG as per my interpretation : rate 140, sinus tachycardia, normal axis, T wave abnormality septal leads 08/27 12AM, SBP 140s, CR 100s on vital signs recheck 6:30 AM Made aware of patient cardiac rate 140s, SBP 120s. Patient complaining of chest tightness with some shortness of breath. Usual smoker's cough symptoms. Abdominal pain a little worse. AM WBC 24K AP Tachycardia Rule out pulmonary embolism Rule out intra-abdominal sepsis, current admission for pancreatitis PCU transfer Continue IVF CT chest PE study CT abdomen pelvis RE worsening abdominal pain Follow UA Blood cultures Further management pending work-up results. Will relay to AM provider.
[2019-08-27 23:31] LABS: BUN Creatinine Ratio 16.7 (10-20); Creatinine Clr Calc Pharmacy 74.1 ml/min; Est GFR (African American) 84.3; Est GFR (Non-African American) 72.7
[2019-08-28 00:09] LABS: Potassium 4.1 mmol/L (3.5-5.1)
[2019-08-28 00:12] LABS: Albumin Level 2.6 gm/dl (3.4-5.0); Magnesium 1.8 mg/dl (1.8-2.4)
[2019-08-28] MEDS ORDERED: SODIUM CHLORIDE 0.9% 1000ML 1,000 ML IV SCH (01:00)
[2019-08-28] MEDS: LACTATED RINGER'S 1,000 ML IV SCH ×3 (01:10→08:03)
[2019-08-28] MEDS: GABAPENTIN 600 MG TAB PO SCH ×2 (02:15→14:04)
[2019-08-28] MEDS: HYDROmorphone INJ 0.5 MG/0.5 ML SYR IV PRN (02:18)
[2019-08-28] MEDS ORDERED: HYDROmorphone INJ 0.5 MG/0.5 ML SYR IV PRN ×2 (03:08→07:09)
[2019-08-28 04:48] LABS: Albumin Globulin Ratio 0.8 (0.9-2); Albumin Level 2.8 gm/dl (3.4-5.0); BUN Creatinine Ratio 22.9 (10-20); Bilirubin,Total 1.3 mg/dl (0.2-1); Calcium 7.8 mg/dl (8.5-10.1); Creatinine Clr Calc Pharmacy 96.9 ml/min; Est GFR (African American) 116.6; Est GFR (Non-African American) 100.6; Globulin 3.3 gm/dl (2.5-4.0); Potassium 4.9 mmol/L (3.5-5.1); Total Protein 6.1 gm/dl (6.4-8.2)
[2019-08-28 05:02] LABS: Basophils # (auto) 0.01 K/uL (0-0.2); Hematocrit (blood only) 46.2 % (37-47); Hemoglobin 16.3 g/dL (12.0-16.0); Immature Granulocytes # (auto) 0.11 K/uL (0.00-0.02); Immature Granulocytes % (auto) 0.4 %; Lymphocytes # (auto) 0.96 K/uL (1.2-3.4); Lymphocytes % (auto) 3.8 %; Mean Corpuscular Hemoglobin 36.3 pg (25-34); Mean Corpuscular Hgb Conc 35.3 g/dL (32-36); Mean Corpuscular Volume 102.9 fL (80-100); Mean Platelet Volume 10.7 fL (7.4-10.4); Monocytes % (auto) 11.2 %; Neutrophils # (auto) 21.06 K/uL (1.4-6.5); Neutrophils % (auto) 84.6 %; Platelet Count 143 K/uL (130-400); RDW Coefficient of Variation 12.3 % (11.5-14.5); RDW Standard Deviation 46.8 fL (36.4-46.3); Red Blood Count 4.49 M/uL (4.2-5.4); White Blood Count 24.94 K/uL (4.8-10.8)
[2019-08-28] MEDS ORDERED: cloNIDine HCL 0.1 MG TAB PO PRN (06:44)
[2019-08-28 06:59] LABS: Appearance Urine Turbid (Clear); Bacteria Urine Automated 4+ (Negative); Blood Urine 2+ (Negative); Color Urine Orange; Epithelial Cell Urine Auto >30 /lpf (0-5); Glucose Urine UA Negative (Negative); Ketones Urine 1+ (Negative); Leukocyte Esterase Urine 1+ (Negative); Nitrite Urine Positive (Negative); Protein Urine 1+ (Negative); Specific Gravity Urine 1.028 (1.000-1.030); Urobilinogen Urine Negative (Negative); WBC Urine Automated >30 /hpf (0-5); pH Urine 5.5 (4.5-7.5)
--- NOTE | 2019-08-28 07:05 | XRay Report ---
XR chest 1V portable CLINICAL HISTORY: sob dyspnea COMPARISON STUDY: 02/02/2017 FINDINGS: Parenchymal infiltrate medial aspect left base. Lungs otherwise appear clear. Diaphragms ar e smooth. IMPRESSION: Infiltrate medial aspect left base. ACT 112: Negative or not required by law. The above report was generated using voice recognition software. It may contain grammatical, syntax or spelling errors. Electronically signed by: Nazario Condon M.D. 08/28/2019 7:03 AM
[2019-08-28] MEDS ORDERED: OXYCODONE HCL IR 5 MG TAB (IMMEDIATE RELEASE) PO PRN (07:09)
[2019-08-28 07:11] LABS: Pregnancy Test, Urine Negative (Negative)
[2019-08-28 07:14] LABS: Bilirubin Urine 1+ (Negative)
[2019-08-28 07:16] LABS: Amphetamines+Metham, Urine Neg (Neg); Barbiturates, Urine Neg (Neg); Benzodiazepine, Urine Neg (Neg); Cocaine, Urine Neg (Neg); Ictotest Urine Positive (Negative); MDMA (Ecstacy), Urine Pos (Neg); Methadone, Urine Neg (Neg); Opiate, Urine Pos (Neg); Phencyclidine, Urine Neg (Neg)
[2019-08-28] MEDS ORDERED: PIPERACILL/TAZOBAC CONSULT ACTIVE PRN (07:32)
[2019-08-28] MEDS ORDERED: PIPERACILLIN/TAZOBACTAM 4.5 GM in DEXTROSE 5% 100 ML IV STA (07:32)
[2019-08-28] MEDS ORDERED: CEFEPIME 2,000 MG/20 ML VIAL IV STA (07:33)
[2019-08-28] MEDS ORDERED: CEFEPIME CONSULT ACTIVE ONE (07:33)
[2019-08-28] MEDS ORDERED: CEFEPIME 2,000 MG in SYRINGE 7.5 ML IV ONE (08:00)
[2019-08-28] MEDS: LORazepam 1 MG/2 ML VIAL IV PRN (08:00)
[2019-08-28] MEDS ORDERED: metroNIDAZOLE 500 MG/100 ML BAG IV SCH (08:00)
[2019-08-28] MEDS ORDERED: OPTIRAY 320 125ml IV PRN (08:20)
[2019-08-28] MEDS: CIPROFLOXACIN / D5W 400 MG/200 ML BAG IV SCH ×2 (08:36→20:54)
--- NOTE | 2019-08-28 08:41 | CT Scan Report ---
CT angio chest PE protocol CT DOSE: 690.78 mGy.cm HISTORY: Chest pain. Dyspnea. PE TECHNIQUE: Multiaxial CT images of the chest were performed following the intravenous administration of contrast to evaluate the pulmonary arteries. Maximal intensity projection images were also obtaine d. A dose lowering technique was utilized adhering to the principles of ALARA. COMPARISON STUDY: None. FINDINGS: There is a normal caliber thoracic aorta with no evidence for dissection. There is no evide nce for pulmonary embolus. No pleural effusions. No pneumothorax. The liver and spleen are unremarkab le. No mediastinal or hilar lymphadenopathy. The central airways are patent. The lungs are clear. Lef t pleural effusion. Infiltrate left base. Trace pleural fluid right lung base. IMPRESSION: 1. No evidence for pulmonary embolus. 2. Left and to a lesser extent right basilar infiltrative/atelectatic change. 3. Small left and to a lesser extent small right pleural effusion. ACT 112: Negative or not required by law. The above report was generated using voice recognition software. It may contain grammatical, syntax or spelling errors. Electronically signed by: Nazario Condon M.D. 08/28/2019 8:39 AM
--- NOTE | 2019-08-28 08:47 | CT Scan Report ---
CT abd pelvis IV con only CT DOSE: HISTORY: Pain abd pain TECHNIQUE: Multiaxial CT images of the abdomen and pelvis were performed following the use of intrave nous contrast. A dose lowering technique was utilized adhering to the principles of ALARA. COMPARISON STUDY: MRCP 08/27/2019 FINDINGS: No significant additional inspiration compared to the prior MRCP. Fatty replacement of the liver. Upper abdominal ascites. Pancreatic edematous change with peripancreatic infiltrative change. No evidence for pseudocyst abscess or collection. Nonobstructive bowel pattern. Moderate ascitic fluid within the soft tissue pelvic and cul-de-sac regions. Uterus is midline. The b ladder demonstrates complex fluid possibly combined with a small amount of air. Hemorrhagic cystitis is considered. IMPRESSION: 1. Findings consistent with acute pancreatitis with considerable peripancreatic infiltrative/edematou s change.. 2. No evidence for abscess collection or pseudocyst. 3. Mild to moderate abdominal and pelvic ascites. 4. Diffuse fatty replacement of liver. 5. Complex fluid within the bladder combined with a small amount of air. The possibility of hemorrhag ic cystitis is considered. Correlation with urinalysis is suggested. ACT 112: Negative or not required by law. The above report was generated using voice recognition software. It may contain grammatical, syntax or spelling errors. Electronically signed by: Nazario Condon M.D. 08/28/2019 8:46 AM
[2019-08-28] MEDS ORDERED: VANCOMYCIN CONSULT ACTIVE PRN (08:49)
[2019-08-28] MEDS ORDERED: VANCOMYCIN HCL 1,750 MG in SODIUM CHLORIDE 0.9% 500 ML IV ONE (09:00)
--- NOTE | 2019-08-28 09:12 | Pharmacy Report ---
Pharmacy Abx Initial Consult - Date of Service August 28, 2019 - Pharmacy Dosing Scope Date of Consult: 08/28/2019 Consultation requested by: Dr. Mckeon Pharmacy is consulted to initiate Vancomycin IV dosing therapy, order appropriate labs and adjust drug dose/frequency. - Subjective The patient is a 34 year old F admitted on 08/27/19 00:55. - Objective Height: 5 ft 6 in Weight: 80.9 kg Vital Signs (Past 12hrs): Vital Signs Temp Pulse Pulse Resp BP Pulse Ox 08/28/19 07:37 140 H 24 129/89 96 08/28/19 06:49 36.6 C 143 H 22 126/87 96 08/28/19 03:15 37.5 C 141 H 20 141/97 H 96 08/28/19 00:11 37.2 C 102 H 20 141/94 H 100 08/28/19 00:10 180 H Lab Results (24hrs): Laboratory Tests (24 Hours) 08/28/19 08/28/19 08/28/19 06:59 04:07 04:07 WBC 24.94 H D Neut # (Auto) 21.06 H Creatinine 0.78 Est Cr Clr Drug Dosing 96.9 Procalcitonin 0.54 H 08/27/19 22:58 WBC Neut # (Auto) Creatinine 1.02 Est Cr Clr Drug Dosing 74.1 Procalcitonin Micro Results: 08/28/19 07:17 Aerobic Blood Culture - Pending Blood Anaerobic Blood Culture - Pending 08/28/19 06:59 Aerobic Blood Culture - Pending Blood Anaerobic Blood Culture - Pending 08/28/19 06:30 Urine Culture - Pending Urine,Clean Catch - Risk Factors for Resistance * None - Assessment & Plan Assessment 34 year old F admitted secondary to acute alcoholic pancreatitis * No significant PMHx * WBCs increased dramatically today prompting empiric initiation of abx * Patient is afebrile, Lactic acid down from 2.7 --> 1.5, PCT 0.54, WBCs 25,000, SCr 0.78/eCrCl 97 * Blood and urine cultures pending * UA was nitrite positive, 1+ LE, > 30 WBCs, 4+ bacteria --> imaging suspicious for hemorrhagic cystitis * Patient started on Vancomycin, Ciprofloxacin (not a pharmacy consult), Metronidazole (not a pharmacy consult) Plan Vancomycin for empiric treatment of sepsis Vancomycin IV * Patient meets criteria for vancomycin AUC dosing nomogram * AUC/BLAYNE is the preferred PK/PD target for vancomycin * Target AUC/BLAYNE = 400-600 * AUC guided dosing is effective and associated with decreased risk of nephrotoxicity * Trough will be ordered to monitor AUC level Ciprofloxacin * 400 mg IV every 12 hours - appropriate per indication/renal fxn Metronidazole * 500 mg IV every 8 hours - appropriate per indication/renal fxn Pharmacy will continue to follow and will adjust dose/frequency as necessary. Thank you.
--- NOTE | 2019-08-28 09:14 | Hospitalist Progress Note ---
Date of Service August 28, 2019 Assessment & Plan (1) Sepsis: Septic 2/2 UTI vs developing intra-abdominal infection in setting of acute alcohol withdrawal and acute alcoholic pancreatitis. CT imaging of chest reveals no PE. Some questionable atelectasis vs infiltrate. Patient is not febrile, denies chills or SOB today and reports no increase in cough from her baseline 2/2 smoking. She has a grossly positive UTI, however, with gross hematuria reported by patient this morning. Started Vanc, Cipro and Flagyl and continued LR @ 200/hr with normalization of lactate overnight. Tachycardia still present, likely somewhat related to withdrawal and persistent pain in her abdomen. 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 Cont gabapentin taper which the patient states she feels is also helping. Will cont to monitor clinical progression closely and will adjust antibiotic regimen as needed. (2) UTI (urinary tract infection): Covered with cipro empirically. Will adjust if unresponsive clinically or pending culture results. Notable Type I allergy to PCN. (3) Acute alcoholic pancreatitis: cont lactated ringers. MRCP negative for stones. Lipase slightly improved. Cont close monitoring and supportive care. Cont NPO. (4) Elevated transaminase level: Likely related to acute pancreatitis +/-alcohol use. (5) Alcohol withdrawal: Welbutrin held to avoid lowering seizure threshold. Cont supportive care with benzos PRN and gabapentin taper. MVI, folate, B12 (6) Alcohol abuse: Will need to formulate a plan for rehab prior to discharge. (7) Mood disorder: hold Welbutrin as above. (8) Smoking: Consider nicotine patch once she improves. Reports smoking 1/2 ppd. (9) DVT prophylaxis: Lovenox Full code Dispo-cont hospitalization. Rosalinda Mckeon DO [facility] Hospitalist Admission and Anticipated Discharge Date Admission Date: August 27, 2019 Subjective Pt is mentating normally Reports her abdominal pain is not worse but has changed and is more along the sides of her abdomen She denies fevers or chills. She denies nausea or vomiting Denies changes in bowels UA+, patient reports some incomplete voiding and "peeing blood" today. Denies dysuria, urinary urgency Denies cough that is new from baseline nonproductive intermittent cough 2/2 smoking Denies chest pain or shortness of breath at this time. Started on cipro/flagyl for possible intra-abdominal process, and vanc added in setting of possible developing sepsis. Review of Systems Review of Systems: All systems reviewed & are unremarkable except as noted in Subjective Physical Exam Physical Exam: CONSTITUTIONAL: WNWD, vitals as above, generally ill- appearing, less anxious today but clearly demonstrating withdrawal symptoms. EYES: pupils are equal and round bilaterally, normal conjunctivae, no scleral icterus ENT: external ear and nose normal NECK: trachea midline RESPIRATORY: clear to auscultation bilaterally, no crackles, rales or wheezes, normal respiratory effort CARDIOVASCULAR: tachy rate and rhythm, S1 and 2 heard without murmurs, gallops or rubs, no JVD, no peripheral edema GASTROINTESTINAL: soft, improvement in epigastric tenderness to palpation, some other generalized abdominal discomfort, however, no guarding present and less distension is present. MUSCULOSKELETAL: able to move independently and moves all extremities equally. No gross focal deficits. SKIN: warm and dry, some noted ecchymosis on her arms in places NEUROLOGIC: CN 2-12 grossly intact, no sensory deficit, normal cognition, normal speech, some tremulousness. No gross focal deficits. PSYCHIATRIC: alert cooperative and oriented to person, place and time. Results & Data Results & Data ([facility]) Vital Signs (Past 12 Hours) Vital Signs Temp Pulse Pulse Resp BP Pulse Ox 08/28/19 07:37 140 H 24 129/89 96 08/28/19 06:49 36.6 C 143 H 22 126/87 96 08/28/19 03:15 37.5 C 141 H 20 141/97 H 96 08/28/19 00:11 37.2 C 102 H 20 141/94 H 100 08/28/19 00:10 180 H Laboratory Results Short CBC 08/28/19 Range/Units 04:07 WBC 24.94 H D (4.8-10.8) K/uL Hgb 16.3 H (12.0-16.0) g/dL Hct 46.2 (37-47) % Plt Count 143 (130-400) K/uL [facility] 08/27/19 08/27/19 08/28/19 22:58 23:48 04:07 Sodium 133 L 133 L Potassium 4.1 4.9 D Chloride 98 102 Carbon Dioxide 24 23 BUN 17 D 18 Creatinine 1.02 0.78 Glucose 148 H 126 H Calcium 8.0 L 7.8 L Cardiac Enzymes 08/28/19 Range/Units 06:59 Troponin I < 0.015 (0-0.045) ng/ml Liver Function 08/27/19 08/28/19 Range/Units 23:48 04:07 Total Bilirubin 1.3 H (0.2-1) mg/dl AST 58 H (15-37) U/L ALT 66 (12-78) U/L Alkaline Phosphatase 112 (45-117) U/L Albumin 2.6 L 2.8 L (3.4-5.0) gm/dl Urine 08/28/19 Range/Units 06:30 Urine Color [place] Urine Appearance Turbid A (Clear) Urine pH 5.5 (4.5-7.5) Ur Specific [place] 1.028 (1.000-1.030) Urine Protein 1+ H (Negative) Urine Glucose (UA) Negative (Negative) Medications Administered Current Inpatient Medications Acetaminophen (Tylenol) 325 mg PO Q6H PRN PRN Reason: Mild Pain Stop: 09/26/19 03:02 Last Admin: 08/27/19 04:59 Dose: 325 mg Documented by: Bupropion HCl (Wellbutrin-Sr) 300 mg PO DAILY [facility] Stop: 09/26/19 08:59 Last Admin: 08/27/19 08:08 Dose: 300 mg Documented by: Clonidine HCl (Catapres) 0.1 mg PO Q4H PRN PRN Reason: sbp > 140 Stop: 09/27/19 06:43 Enoxaparin Sodium (Lovenox) 40 mg SQ QAM [facility] Stop: 09/26/19 08:59 Last Admin: 08/27/19 08:12 Dose: Not Given Documented by: Folic Acid (Folvite) 1 mg PO QAM [facility] Stop: 09/26/19 08:59 Last Admin: 08/27/19 08:08 Dose: 1 mg Documented by: Gabapentin (Neurontin) 600 mg PO Q8H [facility] Stop: 08/29/19 06:01 Gabapentin (Neurontin) 600 mg PO Q12H [facility] Stop: 08/30/19 06:01 Gabapentin (Neurontin) 600 mg PO Q24H [facility] Stop: 08/31/19 06:01 Hydromorphone HCl (Dilaudid) 0.5 mg IV Q3H PRN PRN Reason: Pain Stop: 09/11/19 07:08 Promethazine HCl 12.5 mg/ (Sodium Chloride) 50.5 mls @ 202 mls/hr IV Q6H PRN PRN Reason: Nausea And Vomiting Stop: 09/26/19 02:15 Last Infusion: 08/27/19 10:54 Dose: Infused Documented by: Lorazepam (Ativan) 1 mg in 2 mls @ 2 mls/min IV UD PRN; Protocol PRN Reason: EtOH Withdrawl AWSS Score 6,7 Stop: 09/26/19 02:15 Last Admin: 08/28/19 08:00 Dose: 2 mls/min Documented by: Lorazepam (Ativan) 2 mg in 4 mls @ 4 mls/min IV UD PRN; Protocol PRN Reason: EtOH Withdrawl AWSS Score 8,9 Stop: 09/26/19 02:15 Lorazepam (Ativan) 3 mg in 6 mls @ 4 mls/min IV ONCE PRN; Protocol PRN Reason: EtOH Withdrawl AWSS Score >=10 Stop: 09/26/19 02:15 Last Admin: 08/27/19 15:26 Dose: 4 mls/min Documented by: Lactated Ringer's (Lr) 1,000 mls @ 200 mls/hr IV .Q5H [facility] Stop: 09/27/19 00:59 Last Admin: 08/28/19 08:03 Dose: 200 mls/hr Documented by: Ciprofloxacin (Cipro) 400 mg in 200 mls @ 100 mls/hr IV Q12H [facility]; Protocol Stop: 09/07/19 07:59 Last Admin: 08/28/19 08:36 Dose: 100 mls/hr Documented by: Metronidazole (Flagyl) 500 mg in 100 mls @ 100 mls/hr IV Q8H [facility] Stop: 09/07/19 07:59 Last Admin: 08/28/19 08:36 Dose: 100 mls/hr Documented by: Vancomycin HCl 1,750 mg/ (Sodium Chloride) 535 mls @ 200 mls/hr IV ONE ONE Stop: 08/28/19 11:40 Vancomycin HCl 1,000 mg/ (Sodium Chloride) 270 mls @ 125 mls/hr IV Q8H [facility] Stop: 08/30/19 17:59 Ioversol (Optiray 320 125ml) 120 ml IV ONCE PRN PRN Reason: Interaction Checking Stop: 09/01/19 08:19 Last Admin: 08/28/19 08:21 Dose: 120 ml Documented by: Miscellaneous Information (Consult) 1 ea N/A UD PRN PRN Reason: Consult Stop: 09/27/19 08:48 Multivitamins ([facility]ivitamin Tab) [facility] Stop: 09/26/19 08:59 Last Admin: 08/27/19 08:08 Dose: 1 tab Documented by: Oxycodone HCl (Roxicodone Immediate Rel) 5 - 10 mg PO Q4H PRN PRN Reason: Pain Stop: 09/11/19 07:08 Polyethylene Glycol (Miralax Powder Packet) 17 gm PO DAILY PRN PRN Reason: Constipation Stop: 09/26/19 03:34 Senna/Docusate Sodium (Senokot S) 1 tab [facility] Stop: 09/26/19 08:59 Last Admin: 08/27/19 08:11 Dose: 1 tab Documented by: Thiamine HCl (Vitamin B-1) 100 mg PO QAM [facility] Stop: 09/26/19 08:59 Last Admin: 08/27/19 08:08 Dose: 100 mg Documented by: (1) Acute alcoholic pancreatitis Acute pancreatitis complication: unspecified Qualified Code(s): K85.20 - Alcohol induced acute pancreatitis without necrosis or infection
[2019-08-28] MEDS ORDERED: NALOXONE HCL 0.4 MG/1 ML VIAL/CARP IV PRN (09:15)
[2019-08-28] MEDS ORDERED: HYDROmorphone PCA 30 MG/30 ML IV PRN (09:15)
[2019-08-28] MEDS: FOLIC ACID 1 MG TAB PO SCH (09:26)
[2019-08-28] MEDS: ENOXAPARIN INJ 40 MG/0.4 ML SYR SQ SCH (09:26)
[2019-08-28] MEDS: MULTIVITAMIN TAB PO SCH (09:27)
[2019-08-28] MEDS: THIAMINE HCL 100 MG TAB PO SCH (09:27)
[2019-08-28] MEDS: DOCUSATE SODIUM/SENNA 50/8.6MG TAB PO SCH (09:27)
[2019-08-28] MEDS: SODIUM CHLORIDE 0.9% 1000ML 1,000 ML IV SCH (11:09)
--- NOTE | 2019-08-28 11:26 | Electrocardiogram Report ---
Test Reason : Blood Pressure : / mmHG Vent. Rate : 138 BPM Atrial Rate : 138 BPM P-R Int : 150 ms QRS Dur : 074 ms QT Int : 276 ms P-R-T Axes : 066 085 053 degrees QTc Int : 418 ms Poor data quality, interpretation may be adversely affected Sinus tachycardia Possible Left atrial enlargement Nonspecific ST abnormality Abnormal ECG When compared with ECG of 26-AUG-2019 22:29, QRS duration has decreased Confirmed by Pepe Seth ([id number]) on 08/28/2019 11:25:35 AM Referred By: REFERRED SELF Confirmed By:Pepe Seth
--- NOTE | 2019-08-28 11:32 | Electrocardiogram Report ---
Test Reason : Blood Pressure : / mmHG Vent. Rate : 129 BPM Atrial Rate : 129 BPM P-R Int : 160 ms QRS Dur : 080 ms QT Int : 284 ms P-R-T Axes : 062 078 050 degrees QTc Int : 416 ms Sinus tachycardia Otherwise normal ECG When compared with ECG of 27-AUG-2019 22:41, (unconfirmed) No significant change was found Confirmed by Pepe Seth ([id number]) on 08/28/2019 11:32:31 AM Referred By: REFERRED SELF Confirmed By:Pepe Seth
--- NOTE | 2019-08-28 13:59 | Critical Care Consultation ---
Date of Consultation August 28, 2019 Assessment & Plan (1) Pancreatitis, acute: EKG 08/28/2019: Sinus tachycardia, early repolarization, no ST-T wave changes appreciated, normal axis. QTc 416 CT chest abdomen pelvis 08/28/2019: Right upper lobe bullae, small left-sided pleural effusion, bilateral lower lobe atelectasis. Acute pancreatitis with ascites, Hepatomegaly. MRCP 08/27/2019: No choledocholithiasis, no gallstones identified. --Acute pancreatitis BISAP: 2 Etiology is likely alcoholic, lipase 7867---> 5076, EtOH level at the time of presentation 284 Will order triglyceride level Continue with pain management O2 supplementation to keep saturation greater than 90 BiPAP PRN shortness of breath Strict in and out. --Transaminitis with bilirubinemia Trending down Likely related to acute alcoholic hepatitis DF < 32. No role for steroids Monitor --Likely UTI Procalcitonin 0.54 Follow-up urine culture --UDS positive for ecstasy(MDMA) Patient denies using any illicit drugs. --Microcytic anemia Likely from bone marrow suppression from alcohol Monitor Continue with folate, thiamine and multivitamin supplementation --Prophylaxis VTE: Heparin GI: Protonix Lines: Peripheral Diet: N.p.o. for the time being. We will start feeding once patient is able to. Plan: Strict in and out. Patient is third spacing from all the IV fluids that the patient got. We will decrease the IV fluid to 75 mL/h. Although patient has ascites patient's belly is soft and her creatinine function is good. We will get a Gramajo catheter in. No need to measure intra-abdominal pressure for the time being. Pain management. Patient has a left-sided pleural effusion but she is not in severe respiratory distress. If she gets in distress next would be a trial of BiPAP. If she still does not improve then will intubate her. Her BISAP score is 2. Her calcium is started to go down. Likely from sa ponification. No need for any replacement. I would continue with ciprofloxacin for possible UTI. Discontinue Flagyl and vancomycin. Enteral feeding is preferred as soon as patient is able to tolerate it. But given the patient is on Dilaudid GAS OPERATOR and now that alert getting Ativan as needed patient is very high risk for aspiration. I would not put an NGT in such patient. I have personally spent 63 minutes of critical care time in the direct management of this patient. This is a life/limb threatening event. This includes time spent evaluating patient, direct bedside care, chart review, placing orders, interpretation of diagnostic studies, discussion with consultants, patient, and family members, as well as other required patient management activities. This time is exclusive of all separately billable procedures, and teaching time and separate from and in addition to any other critical care service time. Please note the above document was generated using voice recognition software. It may contain grammatical, syntax or spelling errors. (2) UTI (urinary tract infection): History of Present Illness Attending Physician: Rosalinda Mckeon DO History of Present Illness 34-year-old female with past medical history of alcoholism, mood disorder, active smoker was admitted to the hospital with complaints of abdominal pain, nausea and vomiting. Patient was started on LR 200 mL an hour and pain medication. Patient's last drink was on the day of admission. Her alcohol level at that time was 284. During the course of her hospitalization she has gotten approximately 11 L of fluid. There is no output documented as patient had no Gramajo. ICU was consulted as patient was tachycardic still complaining of abdominal pain. Patient had CT chest abdomen pelvis today which showed left-sided pleural effusion, positive pancreatitis and mild to moderate abdominal ascites. At the time of examination. Patient is little bit somnolent likely from the Dilaudid GAS OPERATOR which she has been taking. She is able to talk in full sentences. She is complaining of abdominal pain radiating to the back. Denies any nausea or vomiting. Denies any palpitation. She does complain of shortness of breath. Patient has a WBC count of 24,000 today which is gone up from 10,000. Allergies Allergy/AdvReac Type Severity Reaction Status Date / Time Penicillins Allergy Intermediate HIVES Verified 08/26/19 23:31 Home Medications Home Medications Medication Instructions Recorded Confirmed Type bupropion HCl [Wellbutrin SR] 300 mg PO DAILY 08/26/19 08/26/19 History gabapentin 100 mg PO TID 08/26/19 08/26/19 History Patient History Social History Preferred Language: Cambodian Communication Ability: Effective Maintenance Foreman Required: No Beliefs That Will Affect Care: None Current Living Situation: Alone Other Information That Helps Us Care for You: No Feels Safe at Home: Yes Safety Concerns: Feels Safe At This Time Smoking Status: Current every day smoker Tobacco Type: cigarettes ; Do You Dip or Chew Tobacco: No ; Second Hand Exposure: Yes ; Tobacco Cessation Education Requested by Patient: No Hx Alcohol Use: Yes Alcohol type: wine Hx Substance Use: No Review of Systems Review of Systems: All systems reviewed & are unremarkable except as noted in HPI & below Physical Exam Physical Exam: Constitutional: In distress secondary to pain HEENT: EOMI, PERRLA Respiratory system: Decreased air entry bilateral lower lobes, no wheeze, no rhonchi, mild crackles bilateral lower lobes CVS: S1-S2 positive, no murmurs or gallops, tachycardia Abdomen: Positive diffuse abdominal tenderness especially in the epigastrium and left upper quadrant, no rebound, decreased bowel sounds x4 Extremities: +2 pulses bilaterally radialis/ dorsalis pedis, no cyanosis, no edema Neuro: Awake alert oriented x3 Psych: Normal mood and affect G/U: No Gramajo Results & Data Results & Data ([facility]) Vital Signs (Past 12 Hours) Vital Signs Temp Pulse Pulse Resp BP BP Pulse Ox 08/28/19 12:15 128 H 18 147/99 H 95 08/28/19 11:56 36.4 C L 125 H 18 136/95 94 08/28/19 11:42 36.8 C 131 H 18 125/89 95 08/28/19 11:23 36.8 C 131 H 18 125/89 95 08/28/19 08:00 142 H 08/28/19 07:37 140 H 24 129/89 96 08/28/19 06:49 36.6 C 143 H 22 126/87 96 08/28/19 03:15 37.5 C 141 H 20 141/97 H 96 08/28/19 14:02 Coding Level of Care Code Critical Care 1st 30-74 mins Diagnoses Pancreatitis, acute K85.90 UTI (urinary tract infection) N39.0 Time Spent (min) 63
--- NOTE | 2019-08-28 14:00 | Gastroenterology Progress Note ---
Date of Service August 28, 2019 Assessment & Plan (1) Severe acute pancreatitis: with ascites, likely pancreatic. possible duct disruption. alcoholic etiology. Recs: -- start enteral feeding now, insert NG/NJ tube. high protein, low fat, semi- elemental feeding formula is recommended (eg, Peptamen AF); can start at 25 cc/hr and advance as tolerated to at least 30 percent of the calculated daily requirement (25 kcal/kg ideal body weight) -aggressive iV hydration -pain control prn - ETOH withdrawal protocol -agree with ICU level of care -rest as per primary team (2) Ascites: (3) Alcohol withdrawal: (4) Alcohol abuse: Admission and Anticipated Discharge Date Admission Date: August 27, 2019 Subjective MRCP negative for biliary obstruction, however she is noted to have ascites likely pancreatic. Still with severe abdominal pains, not improving despite fluids and pain control. not on any nutrition at this time. labs reviewed. Review of Systems Constitutional: no fever and no chills Respiratory: no cough, no dyspnea and no dyspnea on exertion Cardiovascular: no chest pain and no dyspnea Gastrointestinal: as per Subjective / HPI Psychiatric: no depression and no anxiety Physical Exam Constitutional: WD/WN, vitals as above Respiratory: normal respiratory effort, lungs clear to auscultation Cardiovascular: RRR, no murmur, no edema Gastrointestinal (Abdomen): normal bowel sounds, soft, nontender, no h epatosplenomegaly Musculoskeletal: no lower extremity edema Psychiatric: A+Ox3, euthymic affect Results & Data Results & Data ([facility]) Vital Signs (Past 12 Hours) Vital Signs Temp Pulse Pulse Resp BP BP BP 08/28/19 13:44 130 H 20 144/95 H 08/28/19 13:31 141 H 25 H 08/28/19 13:29 134 H 23 134/101 H 08/28/19 13:00 36.8 C 127 H 08/28/19 12:30 128 H 08/28/19 12:15 128 H 18 147/99 H 08/28/19 12:00 126 H 08/28/19 11:56 36.4 C L 125 H 18 136/95 08/28/19 11:42 36.8 C 131 H 18 125/89 08/28/19 11:30 128 H 08/28/19 11:23 36.8 C 131 H 18 125/89 08/28/19 11:00 133 H 08/28/19 10:30 132 H 08/28/19 10:00 133 H 08/28/19 09:30 149 H 08/28/19 09:00 127 H 08/28/19 08:30 123 H 08/28/19 08:00 139 H 08/28/19 07:37 140 H 24 129/89 08/28/19 07:30 141 H 08/28/19 07:00 150 H 08/28/19 06:49 36.6 C 143 H 22 126/87 08/28/19 06:30 150 H 08/28/19 06:00 138 H 08/28/19 05:30 142 H 08/28/19 05:00 149 H 08/28/19 04:30 139 H 08/28/19 04:00 148 H 08/28/19 03:30 145 H 08/28/19 03:15 37.5 C 141 H 20 141/97 H 08/28/19 03:00 142 H 08/28/19 02:30 136 H 08/28/19 02:00 150 H Pulse Ox 08/28/19 13:44 97 08/28/19 13:31 97 08/28/19 13:29 97 08/28/19 13:00 08/28/19 12:30 08/28/19 12:15 95 08/28/19 12:00 08/28/19 11:56 94 08/28/19 11:42 95 08/28/19 11:30 08/28/19 11:23 95 08/28/19 11:00 08/28/19 10:30 08/28/19 10:00 08/28/19 09:30 08/28/19 09:00 08/28/19 08:30 08/28/19 08:00 08/28/19 07:37 96 08/28/19 07:30 08/28/19 07:00 08/28/19 06:49 96 08/28/19 06:30 08/28/19 06:00 08/28/19 05:30 08/28/19 05:00 08/28/19 04:30 08/28/19 04:00 08/28/19 03:30 08/28/19 03:15 96 08/28/19 03:00 08/28/19 02:30 08/28/19 02:00 PG Care Time/CCT Total # of Minutes Spent Total Time Spent with Patient: Total time spent is greater than 50% in coordination of care (as documented) at patient's floor/unit and/or counseling patient: Coding Level of Care Code 75735 Subseq Hosp Care Lvl 3 Diagnoses Severe acute pancreatitis K85.90 Ascites R18.8 Alcohol withdrawal F10.239 Alcohol abuse F10.10
[2019-08-28 14:13] LABS: Hematocrit (blood only) 41.7 % (37-47); Hemoglobin 14.7 g/dL (12.0-16.0); Mean Corpuscular Hemoglobin 36.2 pg (25-34); Mean Corpuscular Volume 102.7 fL (80-100); RDW Coefficient of Variation 12.5 % (11.5-14.5); Red Blood Count 4.06 M/uL (4.2-5.4)
[2019-08-28] MEDS: PANTOprazole 40 MG in SYRINGE 0 ML IV SCH (14:27)
[2019-08-28 14:38] LABS: Albumin Level 2.6 gm/dl (3.4-5.0); BUN Creatinine Ratio 22.1 (10-20); Calcium 7.9 mg/dl (8.5-10.1); Creatinine Clr Calc Pharmacy 133.3 ml/min; Est GFR (African American) 136.2; Est GFR (Non-African American) 117.5; Magnesium 1.7 mg/dl (1.8-2.4); Potassium 4.1 mmol/L (3.5-5.1)
[2019-08-28 14:39] LABS: Basophils # (auto) 0.01 K/uL (0-0.2); Basophils % (auto) 0.1 %; Immature Granulocytes # (auto) 0.07 K/uL (0.00-0.02); Immature Granulocytes % (auto) 0.4 %; Lymphocytes # (auto) 0.85 K/uL (1.2-3.4); Lymphocytes % (auto) 5.2 %; Mean Corpuscular Hgb Conc 35.3 g/dL (32-36); Mean Platelet Volume 10.8 fL (7.4-10.4); Monocytes # (auto) 1.89 K/uL (0.11-0.59); Monocytes % (auto) 11.6 %; Neutrophils # (auto) 13.48 K/uL (1.4-6.5); Neutrophils % (auto) 82.7 %; Platelet Count 88 K/uL (130-400); Platelet Estimate Decreased (Normal)
[2019-08-28 15:12] LABS: Albumin Globulin Ratio 0.9 (0.9-2); Bilirubin,Total 1.1 mg/dl (0.2-1); C Reactive Protein 26.6 mg/dl (0-0.29); Phosphorus 1.4 mg/dl (2.5-4.9); Total Protein 5.6 gm/dl (6.4-8.2)
[2019-08-28] MEDS: MAGNESIUM SULFATE / D5W 1 GM/100 ML BAG IV SCH ×2 (15:23→16:36)
[2019-08-28] MEDS: SODIUM CHLORIDE 0.9% 500 ML IV SCH (15:23)
[2019-08-28 15:32] LABS: iSTAT Allen Test Pass; iSTAT Arterial Blood Gas HCO3 20 meg/L (19-24); iSTAT Arterial Blood Gas pCO2 33 mmHg (35-46); iSTAT Arterial Blood Gas pO2 77 mmHg (80-95); iSTAT Carbon Dioxide 21 mmol/L (24-31); iSTAT Site R Radial
[2019-08-28] MEDS ORDERED: SODIUM PHOSPHATE 3 MMOL/1 ML INFUSION IV STA (17:40)
[2019-08-28] MEDS ORDERED: SODIUM PHOSPHATE 24 MMOL in SODIUM CHLORIDE 0.9% 500 ML IV ONE (17:55)
[2019-08-28] MEDS ORDERED: VANCOMYCIN HCL 1,000 MG in SODIUM CHLORIDE 0.9% 250 ML IV SCH (18:00)
--- NOTE | 2019-08-28 23:41 | Procedure Note ---
Procedure Note Date of Service August 28, 2019 Procedure: Diagnostic therapeutic ultrasound-guided catheter paracentesis Metalsmith Helper: Dr. Catrachita Negro Indication: Ascites to rule out rupture of pancreatic duct as per recommendation from GI Consent: Signed by patient and verified with timeout prior to procedure Anesthesia: 1% lidocaine without epinephrine local. Procedure: Consent was verified and timeout performed. Appropriate imaging studies were reviewed prior to the procedure. Patient was placed in a supine position and limited abdominal ultrasound was performed. See separate imaging. Appropriate site for paracentesis was selected. The skin was prepped and draped in normal sterile fashion. Lidocaine was used for local analgesia. Fluid was aspirated via the 22-gauge needle needle. Using the 16-gauge needle, a total of 60 mL's of dark brown fluid was removed. . A sterile dressing was applied. Fluid was sent for labs. The patient tolerated the procedure without obvious complication Blood loss: Less than 2 cc Coding CPT Codes Abdomen - Abdominal: 21784 Peritoneal Lavage, including imaging guidance, when performed ([id number]) [facility] [place] Procedure Codes (Charges) Abdomen Abdominal: 06161 Peritoneal Lavage, including imaging guidance, when performed
[2019-08-29 00:42] LABS: Albumin Level 2.5 gm/dl (3.4-5.0); BUN Creatinine Ratio 14.6 (10-20); Calcium 7.7 mg/dl (8.5-10.1); Magnesium 2.2 mg/dl (1.8-2.4); Potassium 3.5 mmol/L (3.5-5.1)
[2019-08-29 00:52] LABS: Albumin Globulin Ratio 0.8 (0.9-2); Globulin 3.2 gm/dl (2.5-4.0); Total Protein 5.7 gm/dl (6.4-8.2)
[2019-08-29] MEDS: GABAPENTIN 600 MG TAB PO SCH ×3 (01:27→18:21)
[2019-08-29] MEDS: SODIUM CHLORIDE 0.9% 500 ML IV SCH ×3 (01:29→10:53)
[2019-08-29 02:53] LABS: Appearance Peritoneal Fluid HAZY; Color Peritoneal Fluid AMBER; RBC Peritoneal Fluid (A) < 3000 /uL; WBC Peritoneal Fluid (A) 2993 /ul (0-300)
[2019-08-29 02:54] LABS: Lymphocytes, Fluid 2 %; Mono,Macrophage,Mesothelial 18 %; Neutrophils, Fluid 80 %
[2019-08-29] MEDS ORDERED: POTASSIUM PHOS 3 MMOL/1 ML INFUSION IV STA ×2 (02:58→23:00)
[2019-08-29] MEDS ORDERED: POTASSIUM PHOSPHATE 21 MMOL in SODIUM CHLORIDE 0.9% 500 ML IV ONE (03:00)
[2019-08-29] MEDS ORDERED: levETIRAcetam 500 MG in 0.9 % SODIUM CHLORIDE 100 ML IV SCH (03:00)
[2019-08-29 03:41] LABS: Albumin Peritoneal Fluid 1.8 g/dl; Total Protein Peritoneal Fluid 3.1 g/dl
[2019-08-29 03:54] LABS: LDH Peritoneal Fluid 608 U/L
[2019-08-29] MEDS: LORazepam 2 MG/4 ML VIAL IV PRN ×3 (03:55→22:04)
[2019-08-29 04:43] LABS: Hematocrit (blood only) 37.2 % (37-47); Mean Corpuscular Hemoglobin 36.3 pg (25-34); Mean Corpuscular Hgb Conc 34.9 g/dL (32-36); Mean Corpuscular Volume 103.9 fL (80-100); RDW Coefficient of Variation 12.5 % (11.5-14.5); Red Blood Count 3.58 M/uL (4.2-5.4); White Blood Count 12.03 K/uL (4.8-10.8)
[2019-08-29 04:55] LABS: Mean Platelet Volume 11.2 fL (7.4-10.4); Platelet Count 71 K/uL (130-400)
[2019-08-29 05:06] LABS: Albumin Globulin Ratio 0.7 (0.9-2); Albumin Level 2.3 gm/dl (3.4-5.0); BUN Creatinine Ratio 14.5 (10-20); Calcium 7.4 mg/dl (8.5-10.1); Est GFR (African American) 142.2; Est GFR (Non-African American) 122.7; Globulin 3.3 gm/dl (2.5-4.0); Magnesium 2.3 mg/dl (1.8-2.4); Phosphorus 1.8 mg/dl (2.5-4.9); Potassium 3.7 mmol/L (3.5-5.1); Total Protein 5.6 gm/dl (6.4-8.2)
[2019-08-29 05:07] LABS: Basophils # (auto) 0.01 K/uL (0-0.2); Basophils % (auto) 0.1 %; Immature Granulocytes # (auto) 0.05 K/uL (0.00-0.02); Immature Granulocytes % (auto) 0.4 %; Lymphocytes # (auto) 1.07 K/uL (1.2-3.4); Lymphocytes % (auto) 8.9 %; Monocytes # (auto) 1.34 K/uL (0.11-0.59); Monocytes % (auto) 11.1 %; Neutrophils # (auto) 9.56 K/uL (1.4-6.5); Neutrophils % (auto) 79.5 %; RBC Morphology Unremarkable
[2019-08-29] MEDS ORDERED: VANCOMYCIN CONSULT ACTIVE PRN (05:11)
[2019-08-29 05:28] LABS: Amylase Peritoneal Fluid 5424 U/L; Lipase Peritoneal Fluid > 90000 U/L
[2019-08-29] MEDS ORDERED: VANCOMYCIN HCL 2,000 MG in SODIUM CHLORIDE 0.9% 500 ML IV ONE (06:00)
[2019-08-29] MEDS: THIAMINE HCL 100 MG TAB PO SCH (07:57)
[2019-08-29] MEDS: MULTIVITAMIN TAB PO SCH (07:57)
[2019-08-29] MEDS: FOLIC ACID 1 MG TAB PO SCH (07:57)
[2019-08-29] MEDS: CIPROFLOXACIN / D5W 400 MG/200 ML BAG IV SCH ×2 (08:00→20:07)
--- NOTE | 2019-08-29 08:39 | Hospitalist Progress Note ---
Date of Service August 29, 2019 Assessment & Plan (1) Gram-positive cocci bacteremia: Vanc started overnight, and she did receive one dose yesterday empirically. Echo ordered. Defer to thermoforming operator to adjust abx and reculture when appropriate. WBC decreased today. Ordered echocardiogram (2) Sepsis: Septic 2/2 UTI vs developing intra-abdominal infection in setting of acute alcohol withdrawal and acute alcoholic pancreatitis. CT imaging of chest revealed no PE. Some questionable atelectasis vs infiltrate. Patient is not febrile, denies chills or SOB today and reports no increase in cough from her baseline 2/2 smoking. Would not cover for pneumonia at this time. She has a UTI, growing E coli, sensitivities pending. Cont Cipro. She is not fully resuscitated at this point as her ongoing pancreatitis is severe, evidenced by paracentesis performed last night revealing >5000 amylase in peritoneal fluid. This is concerning for pancreatic leak, so GI plans to perform ERCP today with possible stent placement. Cont CIWA. (3) UTI (urinary tract infection): Covered with cipro empirically. Will adjust if unresponsive clinically or pending culture results. Notable Type I allergy to PCN. (4) Acute alcoholic pancreatitis: Received roughly 10L since admission. Fluids being held at this time. MRCP negative for stones. Lipase slightly improved but suspect pancreatic leak with high amylase in peritoneal fluids. Plan as above. (5) Elevated transaminase level: Likely related to acute pancreatitis +/-alcohol use. (6) Alcohol withdrawal: Welbutrin held to avoid lowering seizure threshold. Cont supportive care with benzos PRN and gabapentin taper. MVI, folate, thiamine. (7) Alcohol abuse: Will need to formulate a plan for rehab prior to discharge. (8) Mood disorder: hold Welbutrin as above. (9) Smoking: Consider nicotine patch once she improves. Reports smoking 1/2 ppd. (10) DVT prophylaxis: Lovenox Full code Dispo-cont ICU monitoring/care. Rosalinda Mckeon DO [facility] Hospitalist Admission and Anticipated Discharge Date Admission Date: August 27, 2019 Subjective somnolent as she just received Ativan so cannot obtain ROS Review of Systems Review of Systems: Unobtainable due to cognitive status Pt does report persistent pain in her abdomen in epigastric area and along sides of abdominal wall. Physical Exam Physical Exam: CONSTITUTIONAL: WNWD, vitals as above, generally ill- appearing,somnolent so exam is limited. EYES: pupils are equal and round bilaterally, normal conjunctivae, no scleral icterus ENT: external ear and nose normal NECK: trachea midline RESPIRATORY: clear to auscultation bilaterally, no crackles, rales or wheezes, normal respiratory effort CARDIOVASCULAR: tachy rate and rhythm, S1 and 2 heard without murmurs, gallops or rubs, no JVD, no peripheral edema GASTROINTESTINAL: slightly distended ?worse since yesterday, tender throughout, some guarding present. MUSCULOSKELETAL: able to move independently and moves all extremities equally. No gross focal deficits. SKIN: warm and dry, some noted ecchymosis on her arms in places NEUROLOGIC: somnolent Results & Data Results & Data ([facility]) Vital Signs (Past 12 Hours) Vital Signs Temp Pulse Resp BP Pulse Ox 08/29/19 02:10 119 H 19 97 08/29/19 02:00 125 H 18 99 08/29/19 01:50 120 H 17 98 08/29/19 01:44 122 H 19 103/83 97 08/29/19 01:40 118 H 19 99 08/29/19 01:30 133 H 19 97 08/29/19 01:20 149 H 27 H 96 08/29/19 01:10 123 H 16 99 08/29/19 01:00 128 H 19 97 08/29/19 00:50 126 H 16 98 08/29/19 00:44 126 H 18 140/98 97 08/29/19 00:40 119 H 19 98 08/29/19 00:30 114 H 16 99 08/29/19 00:20 120 H 16 99 08/29/19 00:10 125 H 17 96 08/29/19 00:00 36.7 C 128 H 14 97 08/28/19 23:50 123 H 17 97 08/28/19 23:44 122 H 18 138/93 96 08/28/19 23:40 120 H 19 96 08/28/19 23:30 135 H 27 H 94 08/28/19 23:20 142 H 20 96 08/28/19 23:10 143 H 24 99 08/28/19 23:00 125 H 22 95 08/28/19 22:50 125 H 18 96 08/28/19 22:44 127 H 17 134/92 99 08/28/19 22:40 128 H 18 99 08/28/19 22:30 131 H 15 98 08/28/19 22:20 107 H 27 H 98 08/28/19 22:10 126 H 18 99 08/28/19 22:00 141 H 20 98 08/28/19 21:50 134 H 18 98 08/28/19 21:44 134 H 19 134/96 98 08/28/19 21:40 134 H 19 97 08/28/19 21:30 133 H 25 H 97 08/28/19 21:20 132 H 20 99 08/28/19 21:10 127 H 19 97 08/28/19 21:00 142 H 27 H 95 08/28/19 20:50 144 H 17 94 08/28/19 20:44 134 H 24 149/100 H 08/28/19 20:40 97 Laboratory Results Short CBC 08/28/19 08/29/19 Range/Units 14:02 04:26 WBC 16.30 H 12.03 H (4.8-10.8) K/uL Hgb 14.7 13.0 (12.0-16.0) g/dL Hct 41.7 37.2 (37-47) % Plt Count 88 L 71 L (130-400) K/uL BMP 08/28/19 08/29/19 08/29/19 14:02 00:09 04:26 Sodium 131 L 132 L 133 L Potassium 4.1 D 3.5 3.7 Chloride 103 102 104 Carbon Dioxide 22 23 24 BUN 14 9 D 8 Creatinine 0.65 0.61 0.57 L Glucose 94 94 88 Calcium 7.9 L 7.7 L 7.4 L Liver Function 08/28/19 08/29/19 08/29/19 Range/Units 14:02 00:09 04:26 Total Bilirubin 1.1 H 1.0 1.0 (0.2-1) mg/dl AST 49 H 50 H 55 H (15-37) U/L ALT 55 50 48 (12-78) U/L Alkaline Phosphatase 103 123 H 133 H (45-117) U/L Albumin 2.6 L 2.5 L 2.3 L (3.4-5.0) gm/dl Medications Administered Current Inpatient Medications Acetaminophen (Tylenol) 325 mg PO Q6H PRN PRN Reason: Mild Pain Stop: 07/19/20 03:02 Last Admin: 08/27/19 04:59 Dose: 325 mg Documented by: Bupropion HCl (Wellbutrin-Sr) 300 mg PO DAILY [facility] Stop: 09/26/19 08:59 Last Admin: 08/27/19 08:08 Dose: 300 mg Documented by: Folic Acid (Folvite) 1 mg PO QAM [facility] Stop: 09/26/19 08:59 Last Admin: 08/29/19 07:57 Dose: 1 mg Documented by: Gabapentin (Neurontin) 600 mg PO Q12H [facility] Stop: 08/30/19 06:01 Gabapentin (Neurontin) 600 mg PO Q24H [facility] Stop: 08/31/19 06:01 Heparin Sodium (Porcine) (Heparin Sodium (Porcine)) 5,000 units SQ Q12 [facility] Stop: 09/28/19 08:59 Hydromorphone HCl () 30 mg IV PRN PRN; Protocol PRN Reason: GLASS SCULLION Pain Titration Stop: 09/11/19 09:14 Last Admin: 08/28/19 11:11 Dose: 30 mg Documented by: Promethazine HCl 12.5 mg/ (Sodium Chloride) 50.5 mls @ 202 mls/hr IV Q6H PRN PRN Reason: Nausea And Vomiting Stop: 09/26/19 02:15 Last Infusion: 08/27/19 10:54 Dose: Infused Documented by: Lorazepam (Ativan) 1 mg in 2 mls @ 2 mls/min IV UD PRN; Protocol PRN Reason: EtOH Withdrawl AWSS Score 6,7 Stop: 09/26/19 02:15 Last Admin: 08/28/19 08:00 Dose: 2 mls/min Documented by: Lorazepam (Ativan) 2 mg in 4 mls @ 4 mls/min IV UD PRN; Protocol PRN Reason: EtOH Withdrawl AWSS Score 8,9 Stop: 09/26/19 02:15 Last Admin: 08/29/19 03:55 Dose: 4 mls/min Documented by: Lorazepam (Ativan) 3 mg in 6 mls @ 4 mls/min IV ONCE PRN; Protocol PRN Reason: EtOH Withdrawl AWSS Score >=10 Stop: 09/26/19 02:15 Last Admin: 06/19/20 15:26 Dose: 4 mls/min Documented by: Ciprofloxacin (Cipro) 400 mg in 200 mls @ 100 mls/hr IV Q12H [facility]; Protocol Stop: 09/07/19 07:59 Last Admin: 08/29/19 08:00 Dose: 100 mls/hr Documented by: Sodium Chloride (Nss 1000ml) 1,000 mls @ 15 mls/hr IV .Q24H [facility] Stop: 09/11/19 09:15 Last Admin: 08/28/19 11:09 Dose: 15 mls/hr Documented by: Pantoprazole Sodium 40 mg/ (Syringe) 10 mls @ 5 mls/min IV DAILY@1100 [place] Stop: 09/27/19 14:14 Last Admin: 08/28/19 14:27 Dose: 5 mls/min Documented by: Sodium Chloride (Nss) 500 mls @ 75 mls/hr IV .Q6H40M [facility] Stop: 09/27/19 15:14 Last Admin: 08/29/19 05:04 Dose: 75 mls/hr Documented by: Vancomycin HCl 2,000 mg/ (Sodium Chloride) 540 mls @ 200 mls/hr IV NOW ONE Stop: 08/29/19 08:41 Last Admin: 08/29/19 06:01 Dose: 200 mls/hr Documented by: Ioversol (Optiray 320 125ml) 120 ml IV ONCE PRN PRN Reason: Interaction Checking Stop: 09/01/19 08:19 Last Admin: 08/28/19 08:21 Dose: 120 ml Documented by: Miscellaneous Information (Consult) 1 ea N/A UD PRN PRN Reason: Consult Stop: 09/28/19 05:10 Multivitamins (Multivitamin Tab) 1 tab PO [facility] Stop: 09/26/19 08:59 Last Admin: 08/29/19 07:57 Dose: 1 tab Documented by: Naloxone HCl (Narcan) 0.1 mg IV Q5M PRN; Protocol PRN Reason: Oversedation/Resp Depression Stop: 09/11/19 09:14 Polyethylene Glycol (Miralax Powder Packet) 17 gm PO DAILY PRN PRN Reason: Constipation Stop: 09/26/19 03:34 Thiamine HCl (Vitamin B-1) 100 mg PO QAM [facility] Stop: 09/26/19 08:59 Last Admin: 08/29/19 07:57 Dose: 100 mg Documented by: (1) Acute alcoholic pancreatitis Acute pancreatitis complication: unspecified Qualified Code(s): K85.20 - Alcohol induced acute pancreatitis without necrosis or infection
[2019-08-29] MEDS ORDERED: HEPARIN SOD 5,000 UNIT/0.5 ML VIAL SQ SCH (09:00)
[2019-08-29] MEDS ORDERED: FUROSEMIDE 40 MG in SYRINGE 0 ML IV ONE ×3 (09:30→23:30)
[2019-08-29] MEDS: SODIUM CHLORIDE 0.9% 1000ML 1,000 ML IV SCH (09:54)
--- NOTE | 2019-08-29 10:20 | Critical Care Progress Note ---
Date of Service August 29, 2019 Assessment & Plan (1) Pancreatitis, acute: EKG 08/28/2019: Sinus tachycardia, early repolarization, no ST-T wave changes appreciated, normal axis. QTc 416 CT chest abdomen pelvis 08/28/2019: Right upper lobe bullae, small left-sided pleural effusion, bilateral lower lobe atelectasis. Acute pancreatitis with ascites, Hepatomegaly. MRCP 08/27/2019: No choledocholithiasis, no gallstones identified. --Acute pancreatitis BISAP: 2 Etiology is likely alcoholic, lipase 7867---> 5076, EtOH level at the time of presentation 284 Triglyceride level was within normal limit Continue with pain management O2 supplementation to keep saturation greater than 90 BiPAP PRN shortness of breath Strict in and out. --Transaminitis with bilirubinemia Trending down Likely related to acute alcoholic hepatitis DF < 32. No role for steroids Monitor --Gram-positive cocci in clusters Continue with vancomycin Follow-up culture. --UTI E. coli, follow-up sensitivities Procalcitonin 0.54 --UDS positive for ecstasy(MDMA) Patient denies using any illicit drugs. --Macrocytic anemia Likely from bone marrow suppression from alcohol Monitor Continue with folate, thiamine and multivitamin supplementation --Prophylaxis VTE: Heparin on hold because of thrombocytopenia GI: Protonix Lines: Peripheral, left arm pick Diet: Clear liquid and advance as tolerated --Hypophosphatemia Being replaced Plan: In/out: +1, urine output 1650 mL Chest x-ray from today shows increasing bilateral pleural effusion.We will give the patient a dose of Lasix today to get her negative balance Plan is to start the patient on clear liquid diet as the patient is willing to eat. Patient did have paracentesis done yesterday diagnostic to see what the amylase level is to make sure there is no peritoneal duct rupture. The amylase level was found to be elevated. Patient is supposed to be taken to OR for ERCP. Will be n.p.o. for that purpose. Patient heart rate has gone down it was in the 120s when she came to the ICU. Right now is in 110s. Blood culture is growing gram-positive cocci in clusters. Started on vancomycin, follow-up cultures. I have personally spent 37 minutes of critical care time in the direct management of this patient. This is a life/limb threatening event. This includes time spent evaluating patient, direct bedside care, chart review, placing orders, interpretation of diagnostic studies, discussion with consultants, patient, and family members, as well as other required patient management activities. This time is exclusive of all separately billable procedures, and teaching time and separate from and in addition to any other critical care service time. Please note the above document was generated using voice recognition software. It may contain grammatical, syntax or spelling errors. (2) UTI (urinary tract infection): Admission and Anticipated Discharge Date Admission Date: August 27, 2019 Subjective Patient seen and examined at bedside. No acute distress, no adverse events overnight. Patient is still using Dilaudid MH TEACHER to help with her pain. She states that the pain has improved since the time coming to the hospital but is still persist and if she needs to Dilaudid MH TEACHER. Denies any nausea or vomiting. No chest pain. Shortness of breath is still there. Patient is willing to eat. Review of Systems Review of Systems: All systems reviewed & are unremarkable except as noted in HPI & below Physical Exam Physical Exam: Constitutional: No acute distress HEENT: EOMI, PERRLA Respiratory system: Decreased air entry bilateral lower lobes, no wheeze, no rhonchi, mild crackles bilateral lower lobes CVS: S1-S2 positive, no murmurs or gallops, tachycardia Abdomen: Positive abdominal tenderness which is improved from before, no rebound, decreased bowel sounds x4 Extremities: +2 pulses bilaterally radialis/ dorsalis pedis, no cyanosis, no edema Neuro: Awake alert oriented x3 Psych: Normal mood and affect G/U: Positive [place] Skin: no rashes, warm and dry Lymphatic: no cervical or axillary lymphadenopathy Results & Data Results & Data ([facility]) Vital Signs (Past 12 Hours) Vital Signs Temp Pulse Resp BP Pulse Ox 08/29/19 02:10 119 H 19 97 08/29/19 02:00 125 H 18 99 08/29/19 01:50 120 H 17 98 08/29/19 01:44 122 H 19 103/83 97 08/29/19 01:40 118 H 19 99 08/29/19 01:30 133 H 19 97 08/29/19 01:20 149 H 27 H 96 08/29/19 01:10 123 H 16 99 08/29/19 01:00 128 H 19 97 08/29/19 00:50 126 H 16 98 08/29/19 00:44 126 H 18 140/98 97 08/29/19 00:40 119 H 19 98 08/29/19 00:30 114 H 16 99 08/29/19 00:20 120 H 16 99 08/29/19 00:10 125 H 17 96 08/29/19 00:00 36.7 C 128 H 14 97 08/28/19 23:50 123 H 17 97 08/28/19 23:44 122 H 18 138/93 96 08/28/19 23:40 120 H 19 96 08/28/19 23:30 135 H 27 H 94 08/28/19 23:20 142 H 20 96 08/28/19 23:10 143 H 24 99 08/28/19 23:00 125 H 22 95 08/28/19 22:50 125 H 18 96 08/28/19 22:44 127 H 17 134/92 99 08/28/19 22:40 128 H 18 99 08/28/19 22:30 131 H 15 98 08/29/19 04:26 08/29/19 09:54 Coding Level of Care Code Critical Care 1st 30-74 mins Diagnoses Pancreatitis, acute K85.90 UTI (urinary tract infection) N39.0 Time Spent (min) 37
[2019-08-29 11:07] LABS: BUN Creatinine Ratio 10.7 (10-20); Calcium 7.5 mg/dl (8.5-10.1); Creatinine Clr Calc Pharmacy 158.9 ml/min; Est GFR (African American) 143.8; Est GFR (Non-African American) 124.1; Magnesium 2.2 mg/dl (1.8-2.4); Potassium 3.4 mmol/L (3.5-5.1)
--- NOTE | 2019-08-29 11:46 | XRay Report ---
SINGLE VIEW CHEST CLINICAL HISTORY: PICC placement. FINDINGS: 2 AP, portable, upright chest radiographs are compared to study dated 08/28/2019. A left-oscar ed PICC line is been placed. The tip projects over the SVC. The cardiomediastinal silhouette is unrem arkable. There are low lung volumes. There are left larger than right pleural effusions with associat ed left basilar consolidation. No pneumothorax is seen. The bony thorax is grossly intact. IMPRESSION: 1. A left-sided PICC line has been placed as above. 2. Left larger right pleural effusions with left basilar consolidation. Pleural effusions have modest ly increased from 08/28/2019. ACT 112: Negative or not required by law. Electronically signed by: Felice Amato M.D. 08/29/2019 11:45 AM
[2019-08-29] MEDS: PANTOprazole 40 MG in SYRINGE 0 ML IV SCH (11:50)
[2019-08-29] MEDS: VANCOMYCIN HCL 1,000 MG in SODIUM CHLORIDE 0.9% 250 ML IV SCH ×2 (13:26→22:29)
[2019-08-29] MEDS ORDERED: fentaNYL citrate 100 MCG/2 ML VIAL ONE (14:01)
[2019-08-29] MEDS ORDERED: SUCCINYLCHOLINE CHLORIDE 20 MG/ML 10 ML VIAL IV ONE (14:01)
[2019-08-29] MEDS ORDERED: ONDANSETRON INJ 2 MG/ML 2 ML VIAL ONE (14:01)
[2019-08-29] MEDS ORDERED: ROCURONIUM BROMIDE 10 MG/ML 5 ML VIAL IV ONE (14:01)
[2019-08-29] MEDS ORDERED: LIDOCAINE HCL 2% 2 ML VIAL/AMP(20MG/ML) INFIL ONE (14:01)
[2019-08-29] MEDS ORDERED: PROPOFOL IV EMULSION 10 MG/ML 20 ML VIAL IV ONE (14:01)
--- NOTE | 2019-08-29 14:47 | Gastroenterology Progress Note ---
Date of Service August 29, 2019 Assessment & Plan Admission and Anticipated Discharge Date Admission Date: August 27, 2019 Subjective I have seen and examined the patient. Still has abdominal pain requiring opioids. CT scan with new moderate ascites, paracentesis done and is consistent with pancreatic ascites ( Amylase >1000, Protein > 3 and SAAG < 1.1) and suggestive of possible pancreatic duct leak due to her ongoing pancreatitis. Plan: ERCP today to to evaluate pancreatic duct leak and stent placement. I explained risk, benefit and alternatives and she agreed. Results & Data ([facility]) Vital Signs (Past 12 Hours) Vital Signs Temp Pulse Resp BP Pulse Ox 08/29/19 10:00 115 H 17 97 08/29/19 09:44 118 H 16 142/101 H 99 08/29/19 09:00 110 H 19 97 08/29/19 08:44 121 H 34 H 137/100 97 08/29/19 08:00 36.9 C 113 H 18 98 08/29/19 07:44 115 H 16 142/91 H 97 08/29/19 07:00 110 H 19 98
--- NOTE | 2019-08-29 15:46 | Anesthesiology Consultation ---
Date of Service August 29, 2019 Assessment & Plan ASA [id number] Proposed Anesthesia Anesthesia Type: General Risk / Benefits Reviewed With: PT / POA / Parent / Guardian, Accepts Plan and Informed Consent Obtained History Surgery Operation Date: 08/29/19 14:00 Proposed Procedures p Endoscopic Retrograde Cholangiopancreato - Mae Shea MD Height/Weight Height: 5 ft 6 in Weight: 82.4 kg Allergies Allergy/AdvReac Type Severity Reaction Status Date / Time Penicillins Allergy Intermediate HIVES Verified 08/26/19 23:31 Medications Home Medications Medication Instructions Recorded Confirmed Last Taken bupropion HCl [Wellbutrin SR] 300 mg PO DAILY 08/26/19 08/26/19 Unknown gabapentin 100 mg PO TID 08/26/19 08/26/19 Unknown Active Medications Generic Name Dose Route Start Last Admin Trade Name Freq PRN Reason Stop Dose Admin Acetaminophen 325 mg 08/27/19 03:03 08/27/19 04:59 Tylenol PO 09/26/19 03:02 325 mg Q6H PRN Administration Mild Pain Bupropion HCl 300 mg 08/27/19 09:00 08/27/19 08:08 Wellbutrin-Sr PO 09/26/19 08:59 300 mg DAILY LINDSAY Administration Folic Acid 1 mg 08/27/19 09:00 08/29/19 07:57 Folvite PO 09/26/19 08:59 1 mg QAM LINDSAY Administration Hydromorphone HCl 30 mg 08/28/19 09:15 08/28/19 11:11 IV 09/11/19 09:14 30 mg PRN PRN Administration NUCLEAR UNIT OPERATOR Pain Titration Protocol Promethazine HCl 12.5 mg/ 50.5 mls @ 202 mls/hr 08/27/19 02:16 08/27/19 10:54 Sodium Chloride IV 09/26/19 02:15 Infused Q6H PRN Infusion Nausea And Vomiting Lorazepam 1 mg in 2 mls @ 2 mls/min 08/27/19 02:16 08/28/19 08:00 Ativan IV 09/26/19 02:15 2 mls/min UD PRN Administration EtOH Withdrawl AWSS Score 6,7 Protocol Lorazepam 2 mg in 4 mls @ 4 mls/min 08/27/19 02:16 08/29/19 10:28 Ativan IV 09/26/19 02:15 4 mls/min UD PRN Administration EtOH Withdrawl AWSS Score 8,9 Protocol Lorazepam 3 mg in 6 mls @ 4 mls/min 08/27/19 02:16 08/27/19 15:26 Ativan IV 09/26/19 02:15 4 mls/min ONCE PRN Administration EtOH Withdrawl AWSS Score >=10 Protocol Ciprofloxacin 400 mg in 200 mls @ 100 mls/hr 08/28/19 08:00 08/29/19 10:03 Cipro IV 09/07/19 07:59 Infused Q12H LINDSAY Infusion Protocol Sodium Chloride 1,000 mls @ 15 mls/hr 08/28/19 09:15 08/29/19 09:54 Nss 1000ml IV 09/11/19 09:15 15 mls/hr .Q24H LINDSAY Administration Pantoprazole Sodium 40 mg/ 10 mls @ 5 mls/min 08/28/19 14:15 08/29/19 11:50 Syringe IV 09/27/19 14:14 5 mls/min DAILY@1100 LINDSAY Administration Vancomycin HCl 1,000 mg/ 270 mls @ 125 mls/hr 08/29/19 14:00 08/29/19 13:26 Sodium Chloride IV 09/12/19 13:59 125 mls/hr Q8H LINDSAY Administration Ioversol 120 ml 08/28/19 08:20 08/28/19 08:21 Optiray 320 125ml IV 09/01/19 08:19 120 ml ONCE PRN Administration Interaction Checking Multivitamins 1 tab 08/27/19 09:00 08/29/19 07:57 Multivitamin Tab PO 09/26/19 08:59 1 tab QAM LINDSAY Administration Thiamine HCl 100 mg 08/27/19 09:00 08/29/19 07:57 Vitamin B-1 PO 09/26/19 08:59 100 mg QAM LINDSAY Administration NPO Date Last Intake of Fluids: 08/29/19 Time Last Intake of Fluids: 00:00 Date Last Intake of Solids: 08/29/19 Time Last Intake of Solids: 00:00 Past Medical History Medical History No significant active problems Exercise / Class Metabolic Activity II 4-5 Yardwork/Stairs/Walk up hill Past Anesthesia History No Hx of Anesthesia Complications and No Family Hx of Anesthesia Complications History of PONV No Hx of PONV and No Hx of Motion Sickness Social History Smoking Status: Current every day smoker tobacco type: cigarettes Do You Dip or Chew Tobacco: No Hx Alcohol Use: Yes Alcohol type: wine alcohol intake frequency: 0-2 drinks per day Hx Substance Use: No substance use type: does not use Review of Systems pt uncooperative Constitutional: no fever and no chills Respiratory: no cough and no dyspnea denies JANNA Cardiovascular: no chest pain and no dyspnea on exertion Physical Exam Vital Signs Last Vital Signs Temp 36.9 C 08/29/19 08:00 Pulse 115 H 08/29/19 10:00 Resp 17 08/29/19 10:00 BP 142/101 H 08/29/19 09:44 Pulse Ox 97 08/29/19 10:00 ENMT Mouth: no TMJ abnormality and no dentition abnormality Thyromental Distance: > or= 3.5 Finger Breadths Mallampati Class: IV Neck neck extension not limited Respiratory normal respiratory effort; no respiratory distress Auscultation: lungs clear to auscultation bilaterally Cardiovascular Rate/Rhythm: regular rate and regular rhythm Neurologic moves all extremities Psychiatric Orientation: alert and oriented x 3 Testing Laboratory Results 08/29/19 04:26 08/29/19 09:54 PT 11.0 Seconds (9.0-12.0) 08/26/19 22:17 INR 1.0 (0.9-1.1) 08/26/19 22:17 Urine Color [place] 08/28/19 06:30 Urine Appearance Turbid (Clear) A 08/28/19 06:30 Urine pH 5.5 (4.5-7.5) 08/28/19 06:30 Ur Specific [place] 1.028 (1.000-1.030) 08/28/19 06:30 Urine Protein 1+ (Negative) H 08/28/19 06:30 Urine Glucose (UA) Negative (Negative) 08/28/19 06:30 Urine Ketones 1+ (Negative) H 08/28/19 06:30 Urine Nitrite Positive (Negative) A 08/28/19 06:30 Ur Leukocyte Esterase 1+ (Negative) H 08/28/19 06:30 Urine WBC (Auto) >30 /hpf (0-5) H 08/28/19 06:30 Urine RBC (Auto) 10-30 /hpf (0-4) H 08/28/19 06:30 U Hyaline Cast (Auto) 10-30 /lpf (0-5) H 08/28/19 06:30 U Epithel Cells (Auto) >30 /lpf (0-5) H 08/28/19 06:30 Urine Bacteria (Auto) 4+ (Negative) H 08/28/19 06:30 Urine Test Negative (Negative) 08/28/19 06:30 08/28/19 06:30 Urine Culture - Preliminary Urine,Clean Catch Escherichia coli 08/28/19 06:59 Aerobic Blood Culture - Preliminary Blood No growth in Aerobic bottle after 24 hours. Anaerobic Blood Culture - Preliminary Gram positive cocci clusters 08/28/19 07:17 Aerobic Blood Culture - Preliminary Blood No growth in Aerobic bottle after 24 hours. Anaerobic Blood Culture - Preliminary Gram positive cocci clusters 08/29/19 08/29/19 11:54 05:56 POC Glucose 115 H 104 H 08/28/19 06:30 Urine Test Negative
[2019-08-29] MEDS ORDERED: INDOMETHACIN 50 MG SUPP PR STA (15:59)
[2019-08-29] MEDS ORDERED: INDOMETHACIN 50 MG SUPP PR ONE (16:01)
--- NOTE | 2019-08-29 17:29 | Operative Report ---
Post Operative Report Pre & Post Diagnosis Operation Date: 08/29/19 14:00 Pre-Op Diagnosis: PANCREATITIS Post-Op Diagnosis: PANCREATITIS I identified the patient and participated in the time-out.: Yes Procedure Operation Date: 08/29/19 14:00 Actual Procedures p Endoscopic Retrograde Cholangiopancreatogram(Not Applicable) - Mae Shea MD Surgeon Mae Shea MD Recruiting Intern None Estimated Blood Loss 0 Findings See Below (PD leak in the head/neck area, stent placed) Specimens None Description of Procedure ERCP I attest to the content of the Intraoperative Record and any orders documented therein. Any exceptions are noted below.
[2019-08-29] MEDS ORDERED: VANCOMYCIN TROUGH ONE (17:30)
--- NOTE | 2019-08-29 17:51 | Anesthesiology Progress Note ---
Date of Service August 29, 2019 Anesthesia Post Procedure Vital Signs Vital Signs: Temp Pulse Resp BP Pulse Ox 08/29/19 15:00 118 H 19 98 08/29/19 14:44 128 H 18 127/80 98 08/29/19 14:00 115 H 17 98 08/29/19 13:44 120 H 12 132/94 99 08/29/19 13:00 122 H 14 97 08/29/19 12:44 114 H 20 135/94 99 08/29/19 12:32 115 H 21 136/92 99 08/29/19 12:00 119 H 24 97 08/29/19 11:44 135 H 16 119/84 96 08/29/19 11:08 142 H 16 143/88 H 94 08/29/19 11:00 144 H 16 96 08/29/19 10:00 115 H 17 97 08/29/19 09:44 118 H 16 142/101 H 99 08/29/19 09:00 110 H 19 97 08/29/19 08:44 121 H 34 H 137/100 97 08/29/19 08:00 36.9 C 113 H 18 98 08/29/19 07:44 115 H 16 142/91 H 97 08/29/19 07:00 110 H 19 98 08/29/19 02:10 119 H 19 97 08/29/19 02:00 125 H 18 99 08/29/19 01:50 120 H 17 98 08/29/19 01:44 122 H 19 103/83 97 08/29/19 01:40 118 H 19 99 08/29/19 01:30 133 H 19 97 08/29/19 01:20 149 H 27 H 96 08/29/19 01:10 123 H 16 99 08/29/19 01:00 128 H 19 97 08/29/19 00:50 126 H 16 98 08/29/19 00:44 126 H 18 140/98 97 08/29/19 00:40 119 H 19 98 08/29/19 00:30 114 H 16 99 08/29/19 00:20 120 H 16 99 08/29/19 00:10 125 H 17 96 08/29/19 00:00 36.7 C 128 H 14 97 08/28/19 23:50 123 H 17 97 08/28/19 23:44 122 H 18 138/93 96 06/20/20 23:40 120 H 19 96 0620/20 23:30 135 H 27 H 94 0620/20 23:20 142 H 20 96 062020 23:10 143 H 24 99 062020 23:00 125 H 22 95 0620/20 22:50 125 H 18 96 0620/20 22:44 127 H 17 134/92 99 0620/20 22:40 128 H 18 99 062020 22:30 131 H 15 98 062020 22:20 107 H 27 H 98 062020 22:10 126 H 18 99 062020 22:00 141 H 20 98 062020 21:50 134 H 18 98 2020 21:44 134 H 19 134/96 98 062020 21:40 134 H 19 97 2020 21:30 133 H 25 H 97 062020 21:20 132 H 20 99 062020 21:10 127 H 19 97 2020 21:00 142 H 27 H 95 2020 20:50 144 H 17 94 2020 20:44 134 H 24 149/100 H 0620/20 20:40 97 062020 20:30 132 H 24 96 0620/20 20:20 138 H 31 H 96 0620/20 20:10 130 H 20 98 0620/20 20:00 36.7 C 126 H 20 99 20/20 19:50 143 H 25 H 97 20/20 19:44 125 H 21 130/86 98 0620/20 19:40 127 H 19 98 0620/20 19:30 131 H 21 95 0620/20 19:20 129 H 19 97 0620/20 19:10 126 H 18 97 0620/20 19:00 135 H 20 96 0620/20 18:50 129 H 27 H 95 20/20 18:44 124 H 20 148/107 H 94 0620/20 18:40 108 H 26 H 97 0620/20 18:30 122 H 20 98 06/20/20 18:20 123 H 21 98 0620/20 18:10 139 H 20 93 2020 18:00 129 H 21 98 Pain Intensity Abdomen: Pain Intensity: 5 Transfer of Care Handoff Completed per policy Notes Mental Status: alert / awake / arousable and participated in evaluation Patient Amnestic to Procedure: Yes Nausea / Vomiting: adequately controlled Pain: adequately controlled Airway Patency, RR, SpO2: stable & adequate BP & HR: stable & adequate Hydration State: stable & adequate Anesthetic Complications: no major complications apparent and Pt Satisfied with anesthetic care
[2019-08-29] MEDS: OCTREOTIDE ACETATE 500 MCG in 0.9 % SODIUM CHLORIDE 100 ML IV SCH (18:21)
--- NOTE | 2019-08-29 18:48 | Fluoroscopy Report ---
INTRAOPERATIVE RADIOGRAPHS CLINICAL HISTORY: ERCP. Fluoroscopy time: 645 seconds. FINDINGS: 12 spot fluoroscopic views of the right upper quadrant from an ERCP procedure are correlate d with abdominal CT dated 08/28/2019. The initial images show contrast opacification of the common arnaldo e duct. There is no intra or extrahepatic biliary ductal dilatation. No filling defects identified in the common bile duct to suggest choledocholithiasis. There is contrast opacification of the gallblad betsy. Additional images show contrast opacification of the pancreatic duct which is patent. Question f ocal stricturing of the pancreatic duct near the pancreatic head. No intraluminal filling defects are identified. Suspect contrast leakage from the pancreatic duct in the head/neck region. IMPRESSION: Intraoperative ERCP images as above. See operative report for detailed findings. Electronically signed by: Felice Amato M.D. 08/29/2019 6:47 PM
[2019-08-29] MEDS ORDERED: Nursing to Pharmacy Communication SCH (19:00)
--- NOTE | 2019-08-29 19:00 | GI REPORT ---
Patient Name: Ana Wooten Procedure Date: 08/29/2019 2:53 PM Date of : 1985 Admit Type: Inpatient Age: 34 Gender: Female Attending MD: Mae Shea MD Procedure: ERCP Providers: Mae Shea MD Referring MD: Rosalinda Mckeon Do Indications: Pancreatic duct leak Medicines: General Anesthesia Complications: No immediate complications. Estimated Blood Loss: Estimated blood loss: none. Procedure: Pre-Anesthesia Assessment: - Prior to the procedure, a History and Physical was performed, and patient medications, allergies and sensitivities were reviewed. The patient's tolerance of previous anesthesia was reviewed. - The risks and benefits of the procedure and the sedation options and risks were discussed with the patient. All questions were answered and informed consent was obtained. - Patient identification and proposed procedure were verified prior to the procedure by the physician and the nurse. The procedure was verified in the procedure room. - Pre-procedure physical examination revealed no contraindications to sedation. After obtaining informed consent, the scope was passed under direct vision. Throughout the procedure, the patient's blood pressure, pulse, and oxygen saturations were monitored continuously. The Scope was introduced through the mouth, and advanced to the duodenum and used to inject contrast into the bile duct and ventral pancreatic duct. The patient tolerated the procedure well. The ERCP was technically difficult and complex due to difficulty passing guidewires through pancreatic ductal stenosis. Findings: The industrial hygenist film was normal. The esophagus was successfully intubated under direct vision. The scope was advanced to a normal major papilla in the descending duodenum without detailed examination of the pharynx, larynx and associated structures, and upper GI tract. The upper GI tract was grossly normal. The major papilla and the entire second portion of the duodenum was edematous. A 0.035 inch angled standard wire was passed into the biliary tree. The Fusion OMNI sphincterotome was passed over the guidewire and the bile duct was then deeply cannulated. Contrast was injected. I personally interpreted the bile duct images. Ductal flow of contrast was adequate. Image quality was adequate. Contrast extended to the main bile duct. The intra-hepatic and extra-hepatic biliary duct system was normal. A 0.035 inch angled standard wire was passed into the ventral pancreatic duct. The ventral pancreatic duct was then deeply cannulated with the short-nosed traction sphincterotome and glidewire. Contrast was injected. A single stenosis with partial disruption with slight leak of contrast was found in the ventral pancreatic duct in the head/ neck area of the pancreas. The pancreatic duct in the body and tail of the pancreas was slightly dilated. Ventral pancreatic sphincterotomy was made with a monofilament traction (standard) sphincterotome using ERBE electrocautery. There was no post-sphincterotomy bleeding. Dilation of the main pancreatic duct with a 4 mm balloon and 5-7-10 Fr catheter dilator was attempted but was unsuccessful as none of the instruments would pass through the area of the disruption due to significant stenosis. One 5 Fr by 9 cm plastic pancreatic stent with a single external pigtail and a single internal flap was placed only around 4 cm into the ventral pancreatic duct and could not bridge the area of disruption. Clear fluid flowed through the stent. Indomethacin 100 mg was given via suppository to decrease the risk of post-ERCP pancreatitis (PEP). 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 - A pancreatic sphincterotomy was performed to decrease intraductal pressure. Recommendation: - [facility] patient to [facility] for [facility] care. - Start IV Octreotide. - Continue IV hydration. - Monitor clinical response and signs of reaccumulation of ascites, consider LVP if needed. - Repeat CT scan in 4 weeks and then ERCP for stent removal. Mae Shea MD 08/29/2019 7:00:07 PM This report has been signed electronically. Note Initiated On: 08/29/2019 2:53 PM Number of Addenda: 0 I attest to the content of the Intraoperative Record and orders documented therein, exceptions below {[id number]}
[2019-08-29 21:24] LABS: BUN Creatinine Ratio 13.4 (10-20); Blood Urea Nitrogen 6 mg/dl (7-18); Calcium 7.6 mg/dl (8.5-10.1); Carbon Dioxide 24 mmol/L (21-32); Chloride 101 mmol/L (98-107); Creatinine Clr Calc Pharmacy 203.2 ml/min; Est GFR (African American) > 150.0; Est GFR (Non-African American) 134.6; Glucose 118 mg/dl (70-99); Magnesium 2.1 mg/dl (1.8-2.4); Potassium 3.4 mmol/L (3.5-5.1); Sodium 134 mmol/L (136-145)
[2019-08-29 21:25] LABS: Phosphorus 1.7 mg/dl (2.5-4.9)
[2019-08-29] MEDS ORDERED: GLUCAGON FOR INJ 1 MG VIAL ONE (23:11)
[2019-08-29] MEDS ORDERED: POTASSIUM PHOSPHATE 30 MMOL in SODIUM CHLORIDE 0.9% 500 ML IV ONE (23:30)
[2019-08-30] MEDS: OCTREOTIDE ACETATE 500 MCG in 0.9 % SODIUM CHLORIDE 100 ML IV SCH ×3 (03:36→23:49)
[2019-08-30] MEDS: LORazepam 2 MG/4 ML VIAL IV PRN (05:04)
[2019-08-30] MEDS: GABAPENTIN 600 MG TAB PO SCH (05:05)
[2019-08-30] MEDS ORDERED: VANCOMYCIN TROUGH ONE ×2 (05:30→07:30)
[2019-08-30] MEDS: VANCOMYCIN HCL 1,000 MG in SODIUM CHLORIDE 0.9% 250 ML IV SCH ×3 (05:30→19:28)
[2019-08-30 06:20] LABS: Hematocrit (blood only) 32.6 % (37-47); Hemoglobin 11.4 g/dL (12.0-16.0); Mean Corpuscular Hemoglobin 36.1 pg (25-34); Mean Corpuscular Volume 103.2 fL (80-100); RDW Coefficient of Variation 12.4 % (11.5-14.5); RDW Standard Deviation 47.1 fL (36.4-46.3); Red Blood Count 3.16 M/uL (4.2-5.4); White Blood Count 7.15 K/uL (4.8-10.8)
[2019-08-30 06:29] LABS: Mean Platelet Volume 10.8 fL (7.4-10.4); Platelet Count 92 K/uL (130-400)
[2019-08-30 06:38] LABS: Immature Granulocytes # (auto) 0.01 K/uL (0.00-0.02); Immature Granulocytes % (auto) 0.1 %; Lymphocytes # (auto) 0.76 K/uL (1.2-3.4); Lymphocytes % (auto) 10.6 %; Monocytes # (auto) 0.97 K/uL (0.11-0.59); Monocytes % (auto) 13.6 %; Neutrophils # (auto) 5.41 K/uL (1.4-6.5); Neutrophils % (auto) 75.7 %
[2019-08-30 06:50] LABS: Albumin Level 2.2 gm/dl (3.4-5.0); BUN Creatinine Ratio 8.9 (10-20); Calcium 7.8 mg/dl (8.5-10.1); Creatinine Clr Calc Pharmacy 158.2 ml/min; Est GFR (African American) 143.8; Est GFR (Non-African American) 124.1; Potassium 3.6 mmol/L (3.5-5.1)
[2019-08-30] MEDS: HYDROmorphone INJ 0.5 MG/0.5 ML SYR IV PRN ×4 (06:55→20:29)
[2019-08-30 07:04] LABS: Bilirubin Direct 0.3 mg/dl (0-0.2); Bilirubin,Total 0.9 mg/dl (0.2-1); Phosphorus 2.5 mg/dl (2.5-4.9); Total Protein 5.5 gm/dl (6.4-8.2)
[2019-08-30] MEDS: THIAMINE HCL 100 MG TAB PO SCH (08:13)
[2019-08-30] MEDS: FOLIC ACID 1 MG TAB PO SCH (08:13)
[2019-08-30] MEDS: CIPROFLOXACIN / D5W 400 MG/200 ML BAG IV SCH (08:13)
[2019-08-30] MEDS: MULTIVITAMIN TAB PO SCH (08:13)
[2019-08-30] MEDS: PANTOprazole 40 MG in SYRINGE 0 ML IV SCH (11:01)
--- NOTE | 2019-08-30 11:26 | Gastroenterology Progress Note ---
Date of Service August 30, 2019 Assessment & Plan (1) Acute alcoholic pancreatitis: Pt is a 34 y/o female w hx of ETOH abuse, pancreatitis w signs of ductal disruption, likely ETOH hepatitis. MRCP w/o signs of gallstones/choledocholithiasis/cbd dilation. She is s/p ERCP 08/28 w pancreatic duct stent placement, pancreatic sphincterectomy. Clinically improving. - Keep NPO - Continue IV Octreotide for at least another 24Hr - IVF hydration - Symptomatic management w analgesics and antiemetics prn - Repeat CT abd/pelvis 4 weeks; repeat ERCP for stent removal in 4 week's time. - ETOH cessation - Watch for s/s of ETOH withdrawals/DT Admission and Anticipated Discharge Date Admission Date: August 27, 2019 Supervising Physician Co-Signing Physician Notes Attending attestation I have seen, examined this patient, and agree with the findings and above by our mid-level provider YOMAIRA Jensen, with the following additions -Abdomen soft -ok for octreotide for 24 hrs -wait till tomorrow to advance diet Subjective Pt reports abd pain better, managable w current analgesics. She denies fever, chills, CP, sob, n/v. Passing flatus. Last BM 08/25 LFTs and lipase trending down. WBC normalized Review of Systems Review of Systems: All systems reviewed & are unremarkable except as noted in HPI & below Physical Exam Constitutional: WD/WN, vitals as above well groomed, cooperative and comfortable Eyes: PERRL, conjunctivae normal, anicteric sclerae ENMT: external ear and nose normal, oropharynx normal Respiratory: normal respiratory effort, lungs clear to auscultation Cardiovascular: RRR, no murmur, no edema Gastrointestinal (Abdomen): Inspection/Auscultation: normal bowel sounds Percussion/Palpation: + abdomen tender (across upper) and abdomen soft Skin: no rashes, warm and dry no jaundice Neurologic: No tremors Psychiatric: A+Ox3, euthymic affect Lymphatic: no lymphedema Results & Data ([facility]) Vital Signs (Past 12 Hours) Vital Signs Temp Pulse Pulse Resp BP BP Pulse Ox 08/30/19 08:00 36.8 C 105 H 109 H 20 125/78 96 08/30/19 05:09 36.4 C L 08/30/19 05:03 100 H 17 124/84 93 08/30/19 05:00 100 H 26 H 94 08/30/19 04:58 104 H 26 H 118/80 96 08/30/19 04:53 120 H 20 139/83 93 08/30/19 04:50 103 H 24 93 08/30/19 04:48 102 H 19 118/82 93 08/30/19 04:43 104 H 19 119/79 94 08/30/19 04:40 112 H 21 91 08/30/19 04:38 108 H 20 118/77 93 08/30/19 04:33 103 H 21 120/79 93 08/30/19 04:30 98 H 19 90 08/30/19 04:27 114 H 20 114/69 88 L 08/30/19 04:23 110 H 20 107/68 93 08/30/19 04:20 120 H 15 91 08/30/19 04:18 118 H 24 125/74 92 08/30/19 04:13 127 H 20 123/87 92 08/30/19 04:10 106 H 22 90 08/30/19 04:07 103 H 24 135/85 88 L 08/30/19 04:02 103 H 23 125/90 89 L 08/30/19 04:00 108 H 21 89 L 08/30/19 03:58 110 H 17 129/85 92 08/30/19 03:52 109 H 17 118/76 94 08/30/19 03:50 107 H 18 92 08/30/19 03:47 109 H 18 117/81 92 08/30/19 03:42 106 H 18 116/79 93 08/30/19 03:40 104 H 17 92 08/30/19 03:37 108 H 18 118/81 92 08/30/19 03:32 104 H 19 114/80 93 08/30/19 03:30 105 H 19 92 08/30/19 03:27 105 H 19 114/79 92 08/30/19 03:22 107 H 17 126/75 90 08/30/19 03:20 107 H 22 91 08/30/19 03:17 105 H 16 119/78 92 08/30/19 03:12 102 H 18 123/80 92 08/30/19 03:10 108 H 20 88 L 08/30/19 03:07 106 H 18 125/80 89 L 08/30/19 03:02 108 H 15 116/79 93 08/30/19 03:00 101 H 24 91 08/30/19 02:57 100 H 23 129/82 91 08/30/19 02:52 99 H 14 128/80 94 08/30/19 02:50 97 H 15 89 L 08/30/19 02:47 102 H 23 118/76 91 08/30/19 02:42 101 H 27 H 121/84 91 08/30/19 02:40 102 H 19 92 08/30/19 02:37 99 H 23 133/87 91 08/30/19 02:32 100 H 16 118/77 93 08/30/19 02:30 108 H 14 95 08/30/19 02:27 99 H 30 H 121/83 91 08/30/19 02:22 106 H 16 117/73 93 08/30/19 02:20 101 H 14 94 08/30/19 00:28 36.7 C 08/30/19 00:22 98 H 15 133/86 94 08/30/19 00:20 99 H 15 94 08/30/19 00:17 98 H 15 130/86 94 08/30/19 00:12 98 H 14 127/84 95 08/30/19 00:10 97 H 15 94 08/30/19 00:07 99 H 14 134/82 95 08/30/19 00:02 93 H 15 128/85 95 08/30/19 00:00 100 H 14 91 08/29/19 23:57 92 H 14 128/87 94 08/29/19 23:52 96 H 14 132/87 94 08/29/19 23:50 90 23 93 08/29/19 23:47 100 H 22 137/88 93 08/29/19 23:42 100 H 16 138/81 94 08/29/19 23:40 103 H 19 90 08/29/19 23:37 102 H 23 137/88 88 L 08/29/19 23:32 98 H 15 132/80 90 08/29/19 23:30 101 H 14 91 08/29/19 23:27 103 H 17 125/82 91 (1) Acute alcoholic pancreatitis Acute pancreatitis complication: unspecified Qualified Code(s): K85.20 - Alcohol induced acute pancreatitis without necrosis or infection
--- NOTE | 2019-08-30 12:52 | Pharmacy Report ---
Pharmacy Abx Dose Short Note - Date of Service August 30, 2019 - Assessment & Plan Assessment * 34 year old F receiving VANCOMYCIN + CIPROFLOXACIN for treatment of staph bacteremia, e coli UTI and pancreatitis w/ recent ERCP and stenting. Pharmacy is consulted to dose vancomycin. * Today is Day # 2 vancomycin therapy, Day # 3 ciprofloxacin * 2 of 2 BLCXs growing staph aureus. PCR testing not performed on these samples to differentiate MSSA vs MRSA as growth is in anaerobic tubes * e coli growing in urine is pansensitive, Leadership Coach plans to convert ciprofloxacin to SMX/TMP today * + tachycardia, however non-hypotensive and sats mid 90s on room air, and afebrile * repeat blcx's to be ordered as well as echo * Renal fxn stable, copious UOP over last 24 hrs (>6L) following furosemide, SCr stable ~0.55-0.6 Plan Vancomycin * Trough level of 11.6 mcg/mL is subtherapeutic. Level was drawn at the appropriate time, prior doses hung on schedule. * Change to 1000 mg (~12mg/kg) IV every 6 hours and recheck trough tomorrow AM with 4th dose of new regimen given Q6hrs schedule * Goal trough level for bacteremia : 15 to 20 mcg/mL Pharmacy will continue to follow and will adjust dose/frequency as necessary. Thank you.
[2019-08-30] MEDS: NICOTINE 21 MG/24 HR TDSY TD SCH (14:42)
--- NOTE | 2019-08-30 17:48 | Hospitalist Progress Note ---
Date of Service August 30, 2019 Assessment & Plan (1) Gram-positive cocci bacteremia: Uncertain source? or if possible contaminant. Pt states she is monogamous sexually with one partner. Denies IVDU. Cont Vancomycin empirically. Staph species present. Echo was unremarkable for vegetation. Reculture is pending. Will cont Vanc until able to discuss the case with ID. HIV pending. (2) Sepsis: 2/2 UTI and severe pancreatitis-resuscitated and improved clinically. (3) UTI (urinary tract infection): Initially covered with Cipro, which was switched to Bactrim. Cont for short course. Noted Type I PCN allergy. Adding pyridium today for pelvic discomfort. DC joseph today per patient request. (4) Acute alcoholic pancreatitis: Underwent initial aggressive fluid resuscitation efforts. Now appears hydrated. MRCP negative for stones. Patient worsened over the weekend and developed ascites. Paracentesis revealed >5000 amylase and pancreatic leak was diagnosed with an ERCP the following day. Small leak noted, indicated this was already starting to heal per GI. She received a stent and was placed on octreotide temporarily. Continues to improve clinically. (5) Elevated transaminase level: Likely related to acute pancreatitis +/-alcohol use. Expected to trend down with recent treatment. Would repeat prior to discharge. (6) Alcohol withdrawal: Welbutrin held to avoid lowering seizure threshold. Cont supportive care with benzos PRN and gabapentin taper. MVI, folate, thiamine. (7) Alcohol abuse: Will need to formulate a plan for rehab prior to discharge. We discussed inpatient rehab programs tonight vs support groups such as AA. she feels her friends/roommates would be supportive of her sobriety efforts at home. She is considering her options. (8) Mood disorder: hold Welbutrin as above. (9) Smoking: Reports smoking 1/2 ppd. Nicotine patch provided. Counseled to quit smoking as this is very bad for her health. (10) DVT prophylaxis: Lovenox Full code Dispo-transfer to floor. DO Phan Brar Hospitalist Admission and Anticipated Discharge Date Admission Date: August 27, 2019 Subjective Pt feeling improved somewhat today but noted more side wall abdominal pain that is bilateral Reports some pelvic discomfort-we discussed pyridium and side effect of urine staining She is afebrile and is asking for food Consented for HIV screening ANASTASIA joseph at her request Transferring to floor from ICU. Review of Systems Review of Systems: All systems reviewed & are unremarkable except as noted in Subjective Physical Exam Physical Exam: CONSTITUTIONAL: WNWD, vitals as above, appears improved clinically. More awake and mentating clearly. EYES: normal conjunctivae, no scleral icterus ENT: external ear and nose normal NECK: trachea midline RESPIRATORY: clear to auscultation bilaterally, no crackles, rales or wheezes, normal respiratory effort CARDIOVASCULAR: tachy rate and rhythm, S1 and 2 heard without murmurs, gallops or rubs, no JVD, no peripheral edema GASTROINTESTINAL: soft, nondistended abdomen, improved TTP which is still present and is generalized. No guarding. MUSCULOSKELETAL: able to move independently and moves all extremities equally. No gross focal deficits. SKIN: warm and dry, NEUROLOGIC: no gross focal deficits. Mentating clearly Results & Data Results & Data ([facility]) Vital Signs (Past 12 Hours) Vital Signs Temp Pulse Pulse Resp BP BP Pulse Ox 08/30/19 16:01 106 H 12 94 08/30/19 16:00 106 H 19 123/92 96 08/30/19 15:09 87 15 118/74 100 08/30/19 15:00 86 13 99 08/30/19 14:09 81 25 H 112/70 100 08/30/19 14:00 91 H 10 L 100 08/30/19 13:10 105 H 20 111/77 91 08/30/19 13:02 109 H 17 119/75 90 08/30/19 13:00 145 H 18 08/30/19 12:48 37.3 C 08/30/19 12:30 114 H 17 08/30/19 12:09 121 H 16 140/91 94 08/30/19 12:00 128 H 24 95 08/30/19 11:57 121 H 16 142/92 H 94 08/30/19 11:30 120 H 18 08/30/19 11:09 105 H 14 132/81 08/30/19 11:00 107 H 19 08/30/19 10:30 102 H 20 08/30/19 10:09 103 H 22 129/75 08/30/19 10:00 106 H 18 08/30/19 09:30 103 H 18 08/30/19 09:09 99 H 17 119/93 08/30/19 09:00 100 H 16 08/30/19 08:30 110 H 15 08/30/19 08:09 111 H 25 H 129/93 08/30/19 08:00 36.8 C 105 H 109 H 13 125/78 96 08/30/19 07:30 106 H 23 92 08/30/19 07:08 111 H 26 H 128/78 95 08/30/19 07:03 122 H 18 125/87 93 08/30/19 07:00 116 H 30 H 90 Laboratory Results Short CBC 08/30/19 Range/Units 05:26 WBC 7.15 (4.8-10.8) K/uL Hgb 11.4 L (12.0-16.0) g/dL Hct 32.6 L (37-47) % Plt Count 92 L (130-400) K/uL BMP 08/29/19 08/30/19 20:52 05:26 Sodium 134 L 137 Potassium 3.4 L 3.6 Chloride 101 103 Carbon Dioxide 24 30 BUN 6 L 5 L Creatinine 0.43 L 0.55 L Glucose 118 H 140 H Calcium 7.6 L 7.8 L Liver Function 08/30/19 Range/Units 05:26 Total Bilirubin 0.9 (0.2-1) mg/dl Direct Bilirubin 0.3 H (0-0.2) mg/dl AST 36 (15-37) U/L ALT 40 (12-78) U/L Alkaline Phosphatase 139 H (45-117) U/L Albumin 2.2 L (3.4-5.0) gm/dl Medications Administered Current Inpatient Medications Acetaminophen (Tylenol) 325 mg PO Q6H PRN PRN Reason: Mild Pain Stop: 09/26/19 03:02 Last Admin: 08/27/19 04:59 Dose: 325 mg Documented by: Bupropion HCl (Wellbutrin-Sr) 300 mg PO DAILY [facility] Stop: 09/26/19 08:59 Last Admin: 08/27/19 08:08 Dose: 300 mg Documented by: Folic Acid (Folvite) 1 mg PO QAM [facility] Stop: 09/26/19 08:59 Last Admin: 08/30/19 08:13 Dose: 1 mg Documented by: Gabapentin (Neurontin) 600 mg PO Q24H [facility] Stop: 08/31/19 06:01 Heparin Sodium (Beef Lung) (Heparin Sod 10 Unit/Ml Flush) 5 ml FLUSH PRN PRN PRN Reason: Flush Stop: 09/29/19 01:26 Hydromorphone HCl (Dilaudid) 0.5 mg IV Q4H PRN PRN Reason: Pain Stop: 09/13/19 06:17 Last Admin: 08/30/19 16:21 Dose: 0.5 mg Documented by: Promethazine HCl 12.5 mg/ (Sodium Chloride) 50.5 mls @ 202 mls/hr IV Q6H PRN PRN Reason: Nausea And Vomiting Stop: 09/26/19 02:15 Last Infusion: 08/27/19 10:54 Dose: Infused Documented by: Lorazepam (Ativan) 1 mg in 2 mls @ 2 mls/min IV UD PRN; Protocol PRN Reason: EtOH Withdrawl AWSS Score 6,7 Stop: 09/26/19 02:15 Last Admin: 08/28/19 08:00 Dose: 2 mls/min Documented by: Lorazepam (Ativan) 2 mg in 4 mls @ 4 mls/min IV UD PRN; Protocol PRN Reason: EtOH Withdrawl AWSS Score 8,9 Stop: 09/26/19 02:15 Last Admin: 08/30/19 05:04 Dose: 4 mls/min Documented by: Lorazepam (Ativan) 3 mg in 6 mls @ 4 mls/min IV ONCE PRN; Protocol PRN Reason: EtOH Withdrawl AWSS Score >=10 Stop: 09/26/19 02:15 Last Admin: 08/27/19 15:26 Dose: 4 mls/min Documented by: Octreotide Acetate 500 mcg/ (Sodium Chloride) 105 mls @ 10.5 mls/hr IV .Q10H [facility] Stop: 09/28/19 17:59 Last Admin: 08/30/19 14:04 Dose: 50 mcg/hr, 10.5 mls/hr Documented by: Vancomycin HCl 1,000 mg/ (Sodium Chloride) 270 mls @ 125 mls/hr IV Q6H [facility] Stop: 09/13/19 12:29 Last Infusion: 08/30/19 15:36 Dose: Infused Documented by: Ioversol (Optiray 320 125ml) 120 ml IV ONCE PRN PRN Reason: Interaction Checking Stop: 09/01/19 08:19 Last Admin: 08/28/19 08:21 Dose: 120 ml Documented by: Miscellaneous (Remove Nicoderm Patch) 1 ea N/A DAILY@0859 [facility] Stop: 09/30/19 08:58 Miscellaneous Information (Consult) 1 ea N/A UD PRN PRN Reason: Consult Stop: 09/28/19 05:10 Multivitamins (Multivitamin Tab) 1 tab PO QAM [facility] Stop: 09/26/19 08:59 Last Admin: 08/30/19 08:13 Dose: 1 tab Documented by: Nicotine (Nicoderm Cq) 21 mg TD QAM [facility] Stop: 09/29/19 14:14 Last Admin: 08/30/19 14:42 Dose: 21 mg Documented by: Pantoprazole Sodium (Protonix) 40 mg PO DAILY [facility] Stop: 09/30/19 08:59 Phenazopyridine HCl (Pyridium) 200 mg PO TID [facility] Stop: 09/02/19 14:01 Polyethylene Glycol (Miralax Powder Packet) 17 gm PO DAILY PRN PRN Reason: Constipation Stop: 09/26/19 03:34 Thiamine HCl (Vitamin B-1) 100 mg PO QAM [facility] Stop: 09/26/19 08:59 Last Admin: 08/30/19 08:13 Dose: 100 mg Documented by: Trimethoprim/Sulfamethoxazole (Septra Ds 800/160mg Tab) 1 tab PO BID [facility] Stop: 09/09/19 20:59 (1) Acute alcoholic pancreatitis Acute pancreatitis complication: unspecified Qualified Code(s): K85.20 - Alcohol induced acute pancreatitis without necrosis or infection
--- NOTE | 2019-08-30 18:29 | Critical Care Progress Note ---
Date of Service August 30, 2019 Assessment & Plan (1) Pancreatitis, acute: --Acute pancreatitis Continued improvement --Transaminitis with bilirubinemia Adding hepatitis C --Gram-positive cocci in clusters Continue with vancomycin Follow-up culture. Discussed with hospitalist will obtain HIV question IVDA --UTI E. coli, follow-up sensitivities Procalcitonin 0.54 --UDS positive for ecstasy(MDMA) Patient denies using any illicit drugs.: Taking Wellbutrin --Macrocytic anemia Likely from bone marrow suppression from alcohol Monitor Continue with folate, thiamine and multivitamin supplementation --Prophylaxis VTE: Heparin on hold because of thrombocytopenia GI: Protonix Lines: Peripheral, left arm pick Diet: Tolerating diet Patient is stable for downgrade out of ICU (2) UTI (urinary tract infection): Admission and Anticipated Discharge Date Admission Date: August 27, 2019 Subjective No overnight events Physical Exam Physical Exam: Alert, ambulates about [place] Results & Data Results & Data ([place]) Vital Signs (Past 12 Hours) Vital Signs Temp Pulse Pulse Resp BP BP Pulse Ox 08/30/19 17:10 95 H 17 127/94 91 08/30/19 17:00 118 H 18 97 08/30/19 16:10 101 H 29 H 143/97 H 96 08/30/19 16:01 106 H 12 94 08/30/19 16:00 106 H 19 123/92 96 08/30/19 15:09 87 15 118/74 100 08/30/19 15:00 86 13 99 08/30/19 14:09 81 25 H 112/70 100 08/30/19 14:00 91 H 10 L 100 08/30/19 13:10 105 H 20 111/77 91 08/30/19 13:02 109 H 17 119/75 90 08/30/19 13:00 145 H 18 08/30/19 12:48 37.3 C 08/30/19 12:30 114 H 17 08/30/19 12:09 121 H 16 140/91 94 08/30/19 12:00 128 H 24 95 08/30/19 11:57 121 H 16 142/92 H 94 08/30/19 11:30 120 H 18 08/30/19 11:09 105 H 14 132/81 08/30/19 11:00 107 H 19 08/30/19 10:30 102 H 20 08/30/19 10:09 103 H 22 129/75 08/30/19 10:00 106 H 18 08/30/19 09:30 103 H 18 08/30/19 09:09 99 H 17 119/93 08/30/19 09:00 100 H 16 08/30/19 08:30 110 H 15 08/30/19 08:09 111 H 25 H 129/93 08/30/19 08:00 36.8 C 105 H 109 H 13 125/78 96 08/30/19 07:30 106 H 23 92 08/30/19 07:08 111 H 26 H 128/78 95 08/30/19 07:03 122 H 18 125/87 93 08/30/19 07:00 116 H 30 H 90 Coding Level of Care Code 24895 Subseq Hosp Care Lvl 1 Diagnoses Pancreatitis, acute K85.90 UTI (urinary tract infection) N39.0 Time Spent (min) 35 Comment I have personally spent 35 minutes of critical care time in the direct management of this patient. This is a life/limb threatening event. This includes time spent evaluating patient, direct bedside care, chart review, placing orders, interpretation of diagnostic studies, discussion with consultants, patient, and/or family members regarding treatment decisions, as well as other required patient management activities. This time is exclusive of all separately billable procedures, and teaching time and separate from and in addition to any other critical care service time.
[2019-08-30] MEDS: ACETAMINOPHEN 325 MG TAB PO PRN (19:28)
[2019-08-30] MEDS: SULFAMETHOXAZOLE/TRIMETHOPRIM DS 800/160MG TAB PO SCH (20:33)
[2019-08-30] MEDS: PHENAZOPYRIDINE HCL 200 MG TAB PO SCH (21:08)
[2019-08-31] MEDS: VANCOMYCIN HCL 1,000 MG in SODIUM CHLORIDE 0.9% 250 ML IV SCH ×5 (00:16→23:43)
[2019-08-31] MEDS: HYDROmorphone INJ 0.5 MG/0.5 ML SYR IV PRN ×6 (00:31→21:28)
[2019-08-31] MEDS ORDERED: LORazepam 0.5 MG TAB PO STA (02:29)
[2019-08-31] MEDS ORDERED: VANCOMYCIN TROUGH ONE (05:30)
[2019-08-31] MEDS ORDERED: GABAPENTIN 600 MG TAB PO SCH (06:00)
[2019-08-31 06:13] LABS: Hematocrit (blood only) 30.8 % (37-47); Hemoglobin 10.5 g/dL (12.0-16.0); Immature Granulocytes # (auto) 0.01 K/uL (0.00-0.02); Immature Granulocytes % (auto) 0.2 %; Lymphocytes # (auto) 0.72 K/uL (1.2-3.4); Lymphocytes % (auto) 16.9 %; Mean Corpuscular Hgb Conc 34.1 g/dL (32-36); Mean Corpuscular Volume 105.5 fL (80-100); Mean Platelet Volume 9.6 fL (7.4-10.4); Monocytes # (auto) 0.78 K/uL (0.11-0.59); Monocytes % (auto) 18.3 %; Neutrophils # (auto) 2.76 K/uL (1.4-6.5); Neutrophils % (auto) 64.6 %; Platelet Count 117 K/uL (130-400); RDW Coefficient of Variation 12.3 % (11.5-14.5); RDW Standard Deviation 47.8 fL (36.4-46.3); Red Blood Count 2.92 M/uL (4.2-5.4); White Blood Count 4.27 K/uL (4.8-10.8)
[2019-08-31] MEDS: ACETAMINOPHEN 325 MG TAB PO PRN ×2 (06:38→11:56)
[2019-08-31 06:43] LABS: Albumin Level 2.3 gm/dl (3.4-5.0); Aspartate Aminotransferase 30 U/L (15-37); BUN Creatinine Ratio 8.3 (10-20); Blood Urea Nitrogen 4 mg/dl (7-18); Calcium 8.1 mg/dl (8.5-10.1); Carbon Dioxide 28 mmol/L (21-32); Chloride 103 mmol/L (98-107); Creatinine Clr Calc Pharmacy 193.4 ml/min; Est GFR (African American) > 150.0; Est GFR (Non-African American) 132.6; Glucose 100 mg/dl (70-99); Potassium 3.3 mmol/L (3.5-5.1); Sodium 137 mmol/L (136-145)
[2019-08-31 06:46] LABS: Alanine Aminotransferase 35 U/L (12-78); Albumin Globulin Ratio 0.8 (0.9-2); Alkaline Phosphatase 126 U/L (45-117); Bilirubin,Total 0.8 mg/dl (0.2-1); Total Protein 5.3 gm/dl (6.4-8.2)
[2019-08-31] MEDS: PHENAZOPYRIDINE HCL 200 MG TAB PO SCH ×3 (08:36→20:20)
[2019-08-31] MEDS: SULFAMETHOXAZOLE/TRIMETHOPRIM DS 800/160MG TAB PO SCH ×2 (08:36→20:19)
[2019-08-31] MEDS: THIAMINE HCL 100 MG TAB PO SCH (08:37)
[2019-08-31] MEDS: FOLIC ACID 1 MG TAB PO SCH (08:37)
[2019-08-31] MEDS: PANTOprazole 40 MG TAB PO SCH (08:37)
[2019-08-31] MEDS: NICOTINE 21 MG/24 HR TDSY TD SCH (08:37)
[2019-08-31] MEDS: MULTIVITAMIN TAB PO SCH (08:37)
--- NOTE | 2019-08-31 10:27 | CT Scan Report ---
ABDOMEN AND PELVIS CT WITHOUT CONTRAST CT DOSE: 431.40 mGy.cm HISTORY: Generalized abdominal pain. r/o nephrolithiasis TECHNIQUE: Multiaxial CT images of the abdomen and pelvis were performed without contrast. A dose lo wering technique was utilized adhering to the principles of ALARA. COMPARISON STUDY: Abdomen and pelvis CT 08/28/2019. FINDINGS: Small bilateral pleural effusions, left greater than right which have slightly increased in size. Bilateral lower lobe consolidation favors compressive atelectasis from the pleural effusions. No pneumoperitoneum. No pneumatosis. No suspicious lytic are blastic osseous lesions. Trace pericardi al effusion. Moderate body wall edema which has progressed. Small amount of ascites has slightly impr reyna. Hepatic steatosis is again noted. Contrast within the gallbladder is likely due to vicarious ex cretion from the prior CT examination. Interval placement of the main pancreatic duct stent which yue ears to be in good position. Peripancreatic edema persists and is consistent with acute pancreatitis. The unenhanced spleen, adrenal glands, and kidneys are unremarkable. No renal or ureteral stones. No hydronephrosis. No retroperitoneal lymphadenopathy. Normal caliber abdominal aorta. The bladder is d ecompressed and not well visualized. The uterus and bilateral adnexa are unremarkable. Mildly distend ed gas and fluid-filled loops of large and small bowel. No definite transition point identified. Ther efore, this favors an ileus. No definite bowel wall thickening or obstruction. There are suboptimal e valuation for bowel pathology due to the lack of intravenous and oral contrast. IMPRESSION: 1. Interval progression of the small bilateral pleural effusions and moderate body wall edema. 2. Slight improvement in the small amount of ascites. 3. Bilateral lower lobe consolidation favors compressive atelectasis from the pleural effusions. A pn eumonia could also have a similar appearance. 4. Peripancreatic edema persists and is consistent with acute pancreatitis. This is not significantly changed. The main pancreatic duct stent appears in good position. 5. Mildly distended gas and fluid-filled loops of large and small bowel. This favors an ileus. A part ial small bowel obstruction could also have a similar appearance but is considered less likely given the lack of a clear transition point. 6. Additional findings as described above. ACT 112: Negative or not required by law. Electronically signed by: Marcellus Ochoa M.D. 08/31/2019 10:25 AM
--- NOTE | 2019-08-31 10:53 | Hospitalist Progress Note ---
Date of Service August 31, 2019 Assessment & Plan (1) Acute alcoholic pancreatitis: Underwent initial aggressive fluid resuscitation efforts. Now appears hydrated. MRCP negative for stones. Patient worsened over the weekend and developed ascites. Paracentesis revealed >5000 amylase and pancreatic leak was diagnosed with an ERCP the following day. Small leak noted, indicated this was already starting to heal per GI. She received a stent and was placed on octreotide temporarily. Continues to improve clinically. Advancing diet to low fat. (2) Thrombocytopenia: likely related to consumption in setting of severe acute systemic inflammatory process. (3) Abdominal pain: 2/2 pancreatitis, improved. (4) Ileus: Likely secondary to excessive narcotic use. Add scheduled APAP and consider adding scheduled NSAIDs to lessen the need for narcotics. (5) Gram-positive cocci bacteremia: Uncertain source? or if possible contaminant. Likely a contaminant., however, would run this past ID to be sure. Pt states she is monogamous sexually with one partner. Denies IVDU. Cont Vancomycin. Staph species present. Echo was unremarkable for vegetation. Reculture is pending. Will cont Vanc until able to discuss the case with ID. HIV is negative and she was counseled on this result and verbalized understanding. (6) Sepsis: 2/2 UTI and severe pancreatitis-resuscitated and improved clinically. (7) UTI (urinary tract infection): Initially covered with Cipro, which was switched to Bactrim. Cont for short course. Noted Type I PCN allergy. Pyridium added on 08/29 for symptom relief. (8) Elevated transaminase level: Likely related to acute pancreatitis +/-alcohol use. Expected to trend down with recent treatment. Would repeat prior to discharge. (9) Alcohol withdrawal: Welbutrin held to avoid lowering seizure threshold and was restarted today. Cont supportive care with benzos PRN and gabapentin taper. MVI, folate, thiamine. Will need to start her regularly scheduled gabapentin again after the taper is completed. (10) Alcohol abuse: Will need to formulate a plan for rehab prior to discharge. We discussed inpatient rehab programs tonight vs support groups such as AA. she feels her friends/roommates would be supportive of her sobriety efforts at home. She is considering her options. (11) Mood disorder: Webutrin as above. (12) Smoking: Reports smoking 1/2 ppd. Nicotine patch provided. Counseled to quit smoking as this is very bad for her health. (13) Anemia: CBC in am. (14) DVT prophylaxis: Lovenox Full code Dispo-to home when medically stable vs inpatient alcohol rehab. DO Phan Brar Hospitalist Admission and Anticipated Discharge Date Admission Date: August 27, 2019 Subjective Feels improved and clinically looks significantly better Some abdominal pain persists but is improved. She is declining sugary and dairy foods which are making up the current diet, and she is appropriately requesting fruits and vegetables. She reports speaking to her mother by phone and updating her Review of Systems Review of Systems: All systems reviewed & are unremarkable except as noted in Subjective Physical Exam Physical Exam: CONSTITUTIONAL: WNWD, vitals as above, appears improved clinically. More awake and mentating clearly. EYES: normal conjunctivae, no scleral icterus ENT: external ear and nose normal NECK: trachea midline RESPIRATORY: clear to auscultation bilaterally, no crackles, rales or wheezes, normal respiratory effort CARDIOVASCULAR: reg rate and rhythm, S1 and 2 heard without murmurs, gallops or rubs, no JVD, no peripheral edema GASTROINTESTINAL: soft, nondistended abdomen, improved TTP which is still present and moreso epigastric today. No guarding. MUSCULOSKELETAL: able to move independently and moves all extremities equally. No gross focal deficits. SKIN: warm and dry, NEUROLOGIC: no gross focal deficits. Mentating clearly Results & Data Results & Data ([facility]) Vital Signs (Past 12 Hours) Vital Signs Temp Pulse Pulse Resp BP Pulse Ox 08/31/19 07:03 36.9 C 92 H 20 147/89 H 99 08/31/19 04:27 36.9 C 101 H 28 H 157/110 H 97 08/31/19 02:12 94 H Laboratory Results Short CBC 08/31/19 Range/Units 05:57 WBC 4.27 L (4.8-10.8) K/uL Hgb 10.5 L (12.0-16.0) g/dL Hct 30.8 L (37-47) % Plt Count 117 L (130-400) K/uL BMP 08/31/19 05:57 Sodium 137 Potassium 3.3 L Chloride 103 Carbon Dioxide 28 BUN 4 L Creatinine 0.45 L Glucose 100 H Calcium 8.1 L Liver Function 06/23/20 Range/Units 05:57 Total Bilirubin 0.8 (0.2-1) mg/dl AST 30 (15-37) U/L ALT 35 (12-78) U/L Alkaline Phosphatase 126 H (45-117) U/L Albumin 2.3 L (3.4-5.0) gm/dl Diagnostic Findings ABDOMEN AND PELVIS CT WITHOUT CONTRAST CT DOSE: 431.40 mGy.cm HISTORY: Generalized abdominal pain. r/o nephrolithiasis TECHNIQUE: Multiaxial CT images of the abdomen and pelvis were performed without contrast. A dose lowering technique was utilized adhering to the principles of ALARA. COMPARISON STUDY: Abdomen and pelvis CT 08/28/2019. FINDINGS: Small bilateral pleural effusions, left greater than right which have slightly increased in size. Bilateral lower lobe consolidation favors compressive atelectasis from the pleural effusions. No pneumoperitoneum. No pneumatosis. No suspicious lytic are blastic osseous lesions. Trace pericardial effusion. Moderate body wall edema which has progressed. Small amount of ascites has slightly improved. Hepatic steatosis is again noted. Contrast within the gallbladder is likely due to vicarious excretion from the prior CT examination. Interval placement of the main pancreatic duct stent which appears to be in good position. Peripancreatic edema persists and is consistent with acute pancreatitis. The unenhanced spleen, adrenal glands, and kidneys are unremarkable. No renal or ureteral stones. No hydronephrosis. No retroperitoneal lymphadenopathy. Normal caliber abdominal aorta. The bladder is decompressed and not well visualized. The uterus and bilateral adnexa are unremarkable. Mildly distended gas and fluid-filled loops of large and small bowel. No definite transition point identified. Therefore, this favors an ileus. No definite bowel wall thickening or obstruction. There are suboptimal evaluation for bowel pathology due to the lack of intravenous and oral contrast. IMPRESSION: 1. Interval progression of the small bilateral pleural effusions and moderate body wall edema. 2. Slight improvement in the small amount of ascites. 3. Bilateral lower lobe consolidation favors compressive atelectasis from the pleural effusions. A pneumonia could also have a similar appearance. 4. Peripancreatic edema persists and is consistent with acute pancreatitis. This is not significantly changed. The main pancreatic duct stent appears in good position. 5. Mildly distended gas and fluid-filled loops of large and small bowel. This favors an ileus. A partial small bowel obstruction could also have a similar appearance but is considered less likely given the lack of a clear transition point. 6. Additional findings as described above. Medications Administered Current Inpatient Medications Acetaminophen (Tylenol) 325 mg PO Q6H PRN PRN Reason: Mild Pain Stop: 09/26/19 03:02 Last Admin: 08/31/19 06:38 Dose: 325 mg Documented by: Bupropion HCl (Wellbutrin-Sr) 300 mg PO DAILY [facility] Stop: 09/26/19 08:59 Last Admin: 08/27/19 08:08 Dose: 300 mg Documented by: Folic Acid (Folvite) 1 mg PO QAM [facility] Stop: 09/26/19 08:59 Last Admin: 08/31/19 08:37 Dose: 1 mg Documented by: Heparin Sodium (Beef Lung) (Heparin Sod 10 Unit/Ml Flush) 5 ml FLUSH PRN PRN PRN Reason: Flush Stop: 09/29/19 01:26 Last Admin: 08/31/19 05:57 Dose: 5 ml Documented by: Hydromorphone HCl (Dilaudid) 0.5 mg IV Q4H PRN PRN Reason: Pain Stop: 09/13/19 06:17 Last Admin: 08/31/19 08:36 Dose: 0.5 mg Documented by: Promethazine HCl 12.5 mg/ (Sodium Chloride) 50.5 mls @ 202 mls/hr IV Q6H PRN PRN Reason: Nausea And Vomiting Stop: 09/26/19 02:15 Last Infusion: 08/27/19 10:54 Dose: Infused Documented by: Lorazepam (Ativan) 1 mg in 2 mls @ 2 mls/min IV UD PRN; Protocol PRN Reason: EtOH Withdrawl AWSS Score 6,7 Stop: 09/26/19 02:15 Last Admin: 08/28/19 08:00 Dose: 2 mls/min Documented by: Lorazepam (Ativan) 2 mg in 4 mls @ 4 mls/min IV UD PRN; Protocol PRN Reason: EtOH Withdrawl AWSS Score 8,9 Stop: 09/26/19 02:15 Last Admin: 08/30/19 05:04 Dose: 4 mls/min Documented by: Lorazepam (Ativan) 3 mg in 6 mls @ 4 mls/min IV ONCE PRN; Protocol PRN Reason: EtOH Withdrawl AWSS Score >=10 Stop: 09/26/19 02:15 Last Admin: 08/27/19 15:26 Dose: 4 mls/min Documented by: Vancomycin HCl 1,000 mg/ (Sodium Chloride) 270 mls @ 125 mls/hr IV Q6H [facility] Stop: 09/13/19 12:29 Last Infusion: 08/31/19 08:34 Dose: Infused Documented by: Ioversol (Optiray 320 125ml) 120 ml IV ONCE PRN PRN Reason: Interaction Checking Stop: 09/01/19 08:19 Last Admin: 08/28/19 08:21 Dose: 120 ml Documented by: Miscellaneous (Remove Nicoderm Patch) 1 ea N/A DAILY@0859 [facility] Stop: 09/30/19 08:58 Last Admin: 08/31/19 06:28 Dose: 1 ea Documented by: Miscellaneous Information (Consult) 1 ea N/A UD PRN PRN Reason: Consult Stop: 09/28/19 05:10 Multivitamins (Multivitamin Tab) 1 tab PO QAM [facility] Stop: 09/26/19 08:59 Last Admin: 08/31/19 08:37 Dose: 1 tab Documented by: Nicotine (Nicoderm Cq) 21 mg TD QAM [facility] Stop: 09/29/19 14:14 Last Admin: 08/31/19 08:37 Dose: 21 mg Documented by: Pantoprazole Sodium (Protonix) 40 mg PO DAILY [facility] Stop: 09/30/19 08:59 Last Admin: 08/31/19 08:37 Dose: 40 mg Documented by: Phenazopyridine HCl (Pyridium) 200 mg PO TID [facility] Stop: 09/02/19 14:01 Last Admin: 08/31/19 08:36 Dose: 200 mg Documented by: Polyethylene Glycol (Miralax Powder Packet) 17 gm PO DAILY PRN PRN Reason: Constipation Stop: 09/26/19 03:34 Thiamine HCl (Vitamin B-1) 100 mg PO QAM [facility] Stop: 09/26/19 08:59 Last Admin: 08/31/19 08:37 Dose: 100 mg Documented by: Trimethoprim/Sulfamethoxazole (Septra Ds 800/160mg Tab) 1 tab PO BID [facility] Stop: 09/09/19 20:59 Last Admin: 08/31/19 08:36 Dose: 1 tab Documented by: (1) Acute alcoholic pancreatitis Acute pancreatitis complication: unspecified Qualified Code(s): K85.20 - Alcohol induced acute pancreatitis without necrosis or infection
--- NOTE | 2019-08-31 11:44 | Gastroenterology Progress Note ---
Date of Service August 31, 2019 Assessment & Plan (1) Acute alcoholic pancreatitis: Pt is a 34 y/o female w hx of ETOH abuse, pancreatitis w signs of ductal disruption, likely ETOH hepatitis. MRCP w/o signs of gallstones/choledocholithiasis/cbd dilation. She is s/p ERCP 08/28 w pancreatic duct stent placement, pancreatic sphincterectomy. Clinically improving. - OK for CL diet - DC Octreotide gtt - Obtain CT abd/pelvis w/o contrast to r/o kidney stone given flank pain - Symptomatic management w analgesics and antiemetics prn - Repeat CT abd/pelvis 4 weeks; repeat ERCP for stent removal in 4 week's time. - ETOH cessation - Watch for s/s of ETOH withdrawals/DT Admission and Anticipated Discharge Date Admission Date: August 27, 2019 Supervising Physician Co-Signing Physician Notes Attending attestation I have seen, examined this patient, and agree with the findings and above by our mid-level provider YOMAIRA Jensen, with the following additions Soft abdomen slowly improving Subjective Pt reports upper abd and suprapubic pain is better. Having more of bilateral flank pain now. Denies fever, chills, n/v. Requesting for food Review of Systems Review of Systems: All systems reviewed & are unremarkable except as noted in HPI & below Physical Exam Constitutional: WD/WN, vitals as above well groomed and cooperative Eyes: PERRL, conjunctivae normal, anicteric sclerae ENMT: external ear and nose normal, oropharynx normal Respiratory: normal respiratory effort, lungs clear to auscultation Cardiovascular: RRR, no murmur, no edema Gastrointestinal (Abdomen): Inspection/Auscultation: + abdomen distended (mild) and + hypoactive bowel sounds Percussion/Palpation: abdomen nontender (across upper) Skin: no rashes, warm and dry no jaundice Psychiatric: A+Ox3, euthymic affect Lymphatic: no lymphedema Results & Data ([facility]) Vital Signs (Past 12 Hours) Vital Signs Temp Pulse Pulse Resp BP Pulse Ox 08/31/19 11:17 36.9 C 74 16 145/72 H 94 08/31/19 07:03 36.9 C 92 H 20 147/89 H 99 08/31/19 04:27 36.9 C 101 H 28 H 157/110 H 97 08/31/19 02:12 94 H (1) Acute alcoholic pancreatitis Acute pancreatitis complication: unspecified Qualified Code(s): K85.20 - Alcohol induced acute pancreatitis without necrosis or infection
[2019-08-31] MEDS: POLYETHYLENE (MIRALAX) 17 GM PACK PO SCH (11:56)
--- NOTE | 2019-08-31 12:21 | Pharmacy Report ---
Pharmacy Abx Dose Short Note - Date of Service August 31, 2019 - Assessment & Plan * 34 year old F receiving VANCOMYCIN + CIPROFLOXACIN for treatment of staph bacteremia, e coli UTI and pancreatitis w/ recent ERCP and stenting. Pharmacy is consulted to dose vancomycin. * Today is Day # 3 vancomycin therapy * 2 of 2 BLCXs growing CoN staph * Repeat BLCX's drawn 08/29: no growth to date * e coli growing in urine is pansensitive on SMX/TMP * no vegetations on echo * Renal fxn stable, UOP >0.5mL/kg/hr, SCr stable ~0.55-0.6 Plan Vancomycin * Trough level of 18.1 mcg/mL is therapeutic. Level was drawn at the appropriate time. Prior doses hung on schedule. * Continue dose of 1000 mg (~12mg/kg) IV every 6 hours * Goal trough level for bacteremia : 15 to 20 mcg/mL * Will repeat trough level tomorrow given aggressive dosing regimen. Pharmacy will continue to follow and will adjust dose/frequency as necessary. Thank you.
--- NOTE | 2019-08-31 14:08 | Surgery Consultation ---
Date of Consultation August 31, 2019 Assessment & Plan (1) Pancreatitis, acute: pt is a 34 year-old female who was admitted to hospital for acute pancreatitis, IMP: acute pancreatitis, uncomplicated plan, no surgery indication now, continue conservative treatment, low fat diet, repeat labs, in am, will F/U History of Present Illness Attending Physician: Rosalinda Mckeon, History of Present Illness Chief Complaint: Abdominal pain Primary Care Provider: Dr. Islas History obtained from patient and records. Medical history significant for mood disorder, history opioid abuse as per records, ongoing tobacco/alcohol abuse. Last confinement 2015 for vaginal delivery under [employer] service. 2 days history of burning epigastric pain with nausea and emesis. Mild constipation. No fever, no chills. No chest pain, no S OB. Admits to drinking alcohol heavily from time to time. I ( Gaviota Watson MD ) got a call for consult pancreatitis,I reviewed pt's H/P, labs, CT scan with pt, pt has mild epigastric pain and back pain, with nausea, no vomiting, no fever, normal WBC, 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, [employer] employee Allergies Allergy/AdvReac Type Severity Reaction Status Date / Time Penicillins Allergy Intermediate HIVES Verified 08/26/19 23:31 Home Medications Home Medications Medication Instructions Recorded Confirmed Type bupropion HCl [Wellbutrin SR] 300 mg PO DAILY 08/26/19 08/26/19 History gabapentin 100 mg PO TID 08/26/19 08/26/19 History Past Med/Surg History Social History Preferred Language: Armenian Communication Ability: Effective 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 Beliefs That Will Affect Care: None Current Living Situation: Alone Other Information That Helps Us Care for You: No Feels Safe at Home: Yes Safety Concerns: Feels Safe At This Time Smoking Status: Current every day smoker Tobacco Type: cigarettes ; Do You Dip or Chew Tobacco: No ; Second Hand Exposure: Yes ; Tobacco Cessation Education Requested by Patient: No Hx Alcohol Use: Yes Alcohol type: wine Hx Substance Use: No Review of Systems Review of Systems: As per HPI, all 10 systems reviewed, all other ROS negative Allergies Allergy/AdvReac Type Severity Reaction Status Date / Time Penicillins Allergy Intermediate HIVES Verified 08/26/19 23:31 Home Medications Home Medications Medication Instructions Recorded Confirmed Type bupropion HCl [Wellbutrin SR] 300 mg PO DAILY 08/26/19 08/26/19 History gabapentin 100 mg PO TID 08/26/19 08/26/19 History Patient History Medical History No significant active problems Social History Preferred Language: Armenian Communication Ability: Effective 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 Beliefs That Will Affect Care: None Current Living Situation: Alone Other Information That Helps Us Care for You: No Feels Safe at Home: Yes Safety Concerns: Feels Safe At This Time Smoking Status: Current every day smoker Tobacco Type: cigarettes ; Do You Dip or Chew Tobacco: No ; Second Hand Exposure: Yes ; Tobacco Cessation Education Requested by Patient: No Hx Alcohol Use: Yes Alcohol type: wine Hx Substance Use: No Physical Exam Constitutional: WD/WN, vitals as above well developed and well nourished Eyes: PERRL, conjunctivae normal, anicteric sclerae ENMT: external ear and nose normal, oropharynx normal Neck: trachea midline, no thyromegaly Respiratory: normal respiratory effort, lungs clear to auscultation Cardiovascular: RRR, no murmur, no edema Rate/Rhythm: regular rate and regular rhythm Heart Sounds: normal S1 and normal S2 Gastrointestinal (Abdomen): normal bowel sounds, soft, nontender, no hepatosplenomegaly soft, mild tenderness at epigastric area, no rebound pain, no distend, Musculoskeletal: no cyanosis or clubbing, extremities motor strength 5/5 Skin: no rashes, warm and dry Neurologic: patellar DTR's 2+ bilat, sensation intact Psychiatric: Orientation: alert and oriented x 3 Results & Data Vital Signs (Past 12 Hours) Vital Signs Temp Pulse Pulse Resp BP Pulse Ox 08/31/19 12:59 86 08/31/19 11:17 36.9 C 74 16 145/72 H 94 08/31/19 07:03 36.9 C 92 H 20 147/89 H 99 08/31/19 04:27 36.9 C 101 H 28 H 157/110 H 97 08/31/19 02:12 94 H Laboratory Results Abnormal lab results 08/31/19 08/31/19 08/31/19 Range/Units 05:57 05:57 07:39 WBC 4.27 L (4.8-10.8) K/uL RBC 2.92 L (4.2-5.4) M/uL Hgb 10.5 L (12.0-16.0) g/dL Hct 30.8 L (37-47) % MCV 105.5 H (80-100) fL MCH 36.0 H (25-34) pg RDW Std Deviation 47.8 H (36.4-46.3) fL Plt Count 117 L (130-400) K/uL Lymph # (Auto) 0.72 L (1.2-3.4) K/uL Giles # (Auto) 0.78 H (0.11-0.59) K/uL Potassium 3.3 L (3.5-5.1) mmol/L BUN 4 L (7-18) mg/dl Creatinine 0.45 L (0.6-1.2) mg/dl BUN/Creatinine Ratio 8.3 L (10-20) Glucose 100 H (70-99) mg/dl POC Glucose 105 H (70-99) mg/dl Calcium 8.1 L (8.5-10.1) mg/dl Alkaline Phosphatase 126 H (45-117) U/L Total Protein 5.3 L (6.4-8.2) gm/dl Albumin 2.3 L (3.4-5.0) gm/dl Albumin/Globulin Ratio 0.8 L (0.9-2) 08/31/19 Range/Units 11:30 WBC (4.8-10.8) K/uL RBC (4.2-5.4) M/uL Hgb (12.0-16.0) g/dL Hct (37-47) % MCV (80-100) fL MCH (25-34) pg RDW Std Deviation (36.4-46.3) fL Plt Count (130-400) K/uL Lymph # (Auto) (1.2-3.4) K/uL Giles # (Auto) (0.11-0.59) K/uL Potassium (3.5-5.1) mmol/L BUN (7-18) mg/dl Creatinine (0.6-1.2) mg/dl BUN/Creatinine Ratio (10-20) Glucose (70-99) mg/dl POC Glucose 177 H (70-99) mg/dl Calcium (8.5-10.1) mg/dl Alkaline Phosphatase (45-117) U/L Total Protein (6.4-8.2) gm/dl Albumin (3.4-5.0) gm/dl Albumin/Globulin Ratio (0.9-2) Diagnostic Findings ABDOMEN AND PELVIS CT WITHOUT CONTRAST CT DOSE: 431.40 mGy.cm HISTORY: Generalized abdominal pain. r/o nephrolithiasis TECHNIQUE: Multiaxial CT images of the abdomen and pelvis were performed without contrast. A dose lowering technique was utilized adhering to the principles of ALARA. COMPARISON STUDY: Abdomen and pelvis CT 08/28/2019. FINDINGS: Small bilateral pleural effusions, left greater than right which have slightly increased in size. Bilateral lower lobe consolidation favors compressive atelectasis from the pleural effusions. No pneumoperitoneum. No pneumatosis. No suspicious lytic are blastic osseous lesions. Trace pericardial effusion. Moderate body wall edema which has progressed. Small amount of ascites has slightly improved. Hepatic steatosis is again noted. Contrast within the gallbladder is likely due to vicarious excretion from the prior CT examination. Interval placement of the main pancreatic duct stent which appears to be in good position. Peripancreatic edema persists and is consistent with acute pancreatitis. The unenhanced spleen, adrenal glands, and kidneys are unremarkable. No renal or ureteral stones. No hydronephrosis. No retroperitoneal lymphadenopathy. Normal caliber abdominal aorta. The bladder is decompressed and not well visualized. The uterus and bilateral adnexa are unremarkable. Mildly distended gas and fluid-filled loops of large and small bowel. No definite transition point identified. Therefore, this favors an ileus. No definite bowel wall thickening or obstruction. There are suboptimal evaluation for bowel pathology due to the lack of intravenous and oral contrast. IMPRESSION: 1. Interval progression of the small bilateral pleural effusions and moderate body wall edema. 2. Slight improvement in the small amount of ascites. 3. Bilateral lower lobe consolidation favors compressive atelectasis from the pleural effusions. A pneumonia could also have a similar appearance. 4. Peripancreatic edema persists and is consistent with acute pancreatitis. This is not significantly changed. The main pancreatic duct stent appears in good position. 5. Mildly distended gas and fluid-filled loops of large and small bowel. This favors an ileus. A partial small bowel obstruction could also have a similar appearance but is considered less likely given the lack of a clear transition point. 6. Additional findings as described above. CT abd pelvis IV con only CT DOSE: HISTORY: Pain abd pain TECHNIQUE: Multiaxial CT images of the abdomen and pelvis were performed following the use of intravenous contrast. A dose lowering technique was utilized adhering to the principles of ALARA. COMPARISON STUDY: MRCP 08/27/2019 FINDINGS: No significant additional inspiration compared to the prior MRCP. Fatty replacement of the liver. Upper abdominal ascites. Pancreatic edematous change with peripancreatic infiltrative change. No evidence for pseudocyst abscess or collection. Nonobstructive bowel pattern. Moderate ascitic fluid within the soft tissue pelvic and cul-de-sac regions. Uterus is midline. The bladder demonstrates complex fluid possibly combined with a small amount of air. Hemorrhagic cystitis is considered. IMPRESSION: 1. Findings consistent with acute pancreatitis with considerable peripancreatic infiltrative/edematous change.. 2. No evidence for abscess collection or pseudocyst. 3. Mild to moderate abdominal and pelvic ascites. 4. Diffuse fatty replacement of liver. 5. Complex fluid within the bladder combined with a small amount of air. The possibility of hemorrhagic cystitis is considered. Correlation with urinalysis is suggested.
[2019-08-31] MEDS: ACETAMINOPHEN 500 MG TAB PO SCH (20:20)
[2019-08-31] MEDS ORDERED: cloNIDine HCL 0.1 MG TAB PO ONE (23:48)
[2019-08-31] MEDS ORDERED: MAGNESIUM SULFATE / D5W 1 GM/100 ML BAG IV ONE (23:50)
[2019-08-31] MEDS ORDERED: POTASSIUM CHLORIDE 20 MEQ TABCR PO STA (23:50)
[2019-09-01] MEDS: GABAPENTIN 100 MG CAP PO SCH ×4 (01:00→20:21)
[2019-09-01] MEDS: HYDROmorphone INJ 0.5 MG/0.5 ML SYR IV PRN ×4 (01:47→20:22)
[2019-09-01] MEDS: ACETAMINOPHEN 500 MG TAB PO SCH ×3 (03:06→19:46)
[2019-09-01] MEDS ORDERED: VANCOMYCIN TROUGH ONE ×2 (05:30→13:30)
[2019-09-01] MEDS: VANCOMYCIN HCL 1,000 MG in SODIUM CHLORIDE 0.9% 250 ML IV SCH (08:39)
[2019-09-01 08:41] LABS: Mean Corpuscular Hemoglobin 36.2 pg (25-34); Mean Corpuscular Hgb Conc 35.5 g/dL (32-36); Mean Platelet Volume 9.7 fL (7.4-10.4); Platelet Count 176 K/uL (130-400); RDW Coefficient of Variation 12.4 % (11.5-14.5); RDW Standard Deviation 45.8 fL (36.4-46.3); Red Blood Count 3.04 M/uL (4.2-5.4); White Blood Count 4.99 K/uL (4.8-10.8)
[2019-09-01] MEDS: PANTOprazole 40 MG TAB PO SCH (08:43)
[2019-09-01] MEDS: THIAMINE HCL 100 MG TAB PO SCH (08:44)
[2019-09-01] MEDS: MULTIVITAMIN TAB PO SCH (08:45)
[2019-09-01] MEDS: SULFAMETHOXAZOLE/TRIMETHOPRIM DS 800/160MG TAB PO SCH ×2 (08:45→20:21)
[2019-09-01] MEDS: PHENAZOPYRIDINE HCL 200 MG TAB PO SCH ×3 (08:45→20:21)
[2019-09-01] MEDS: FOLIC ACID 1 MG TAB PO SCH (08:45)
[2019-09-01] MEDS: NICOTINE 21 MG/24 HR TDSY TD SCH (08:46)
[2019-09-01] MEDS: POLYETHYLENE (MIRALAX) 17 GM PACK PO SCH (08:51)
[2019-09-01 09:04] LABS: Codeine Urine NEGATIVE ng/mL (<50); Hydrocodone Urine NEGATIVE ng/mL (<50); Hydromor Urine 2290 ng/mL (<50); MDA negative; MDEA negative; MDMA (Ecstasy) Urine, Confirm negative; Morphine Urine NEGATIVE ng/mL (<50); Norhydrocodone Conf Ur NEGATIVE ng/mL (<50); Noroxycodone Urine NEGATIVE ng/mL (<50); Oxycodone Urine 622 ng/mL (<50); Oxymorph Urine 213 ng/mL (<50)
[2019-09-01 09:05] LABS: Immature Granulocytes # (auto) 0.03 K/uL (0.00-0.02); Immature Granulocytes % (auto) 0.6 %; Lymphocytes # (auto) 1.27 K/uL (1.2-3.4); Lymphocytes % (auto) 25.5 %; Monocytes # (auto) 0.69 K/uL (0.11-0.59); Monocytes % (auto) 13.8 %; Neutrophils % (auto) 60.1 %
[2019-09-01 09:06] LABS: BUN Creatinine Ratio 4.5 (10-20); Calcium 8.5 mg/dl (8.5-10.1); Creatinine Clr Calc Pharmacy 170.6 ml/min; Est GFR (African American) 147.5; Est GFR (Non-African American) 127.2; Potassium 3.2 mmol/L (3.5-5.1)
--- NOTE | 2019-09-01 09:44 | Pharmacy Report ---
Pharmacy Abx Dose Short Note - Date of Service September 01, 2019 - Assessment & Plan Assessment 34 year old F receiving IV Vancomycin + PO Bactrim for treatment of Coag. Negative Staph bacteremia, E. coli UTI and pancreatitis with recent ERCP and stenting. Pharmacy is consulted to dose vancomycin. * Day #5 of antimicrobial therapy * 2 out of 2 Blood Cultures are growing Coagulase Negative Staph in anaerobic bottles only. Could represent contamination. Sensitive to both Vancomycin and Bactrim. * Repeat Blood cultures from 08/29: no growth to date * E. coli UTI is pansensitive - continue Bactrim * No vegetations on echo * Renal fxn stable, No leukocytosis, Afebrile * Attending to discuss with [facility] service prior to discontinuing Vancomycin Plan Vancomycin * Trough level of 14.7 mcg/mL was drawn 3 hours late this morning. Extrapolated that true trough would have been > 20 mcg/mL putting the patient at risk of nephrotoxicity. Therefore, will decrease the dose of vancomycin today. * Change to 1250 mg IV every 8 hours * Goal trough: ~15 mcg/mL * Trough level ordered for tomorrow after prior the 4th maintenance dose to reflect steady state levels on this new dose and ensure patient is not supratherapeutic. Pharmacy will continue to follow and will adjust dose/frequency as necessary. Thank you.
[2019-09-01] MEDS ORDERED: POTASSIUM CHLORIDE 20 MEQ TABCR PO ONE (09:56)
[2019-09-01] MEDS: BuPROPion SR 150 MG TABCR PO SCH (10:37)
[2019-09-01] MEDS: LORazepam 1 MG/2 ML VIAL IV PRN (11:10)
--- NOTE | 2019-09-01 11:37 | Gastroenterology Progress Note ---
Date of Service September 01, 2019 Assessment & Plan (1) Acute alcoholic pancreatitis: Pt is a 34 y/o female w hx of ETOH abuse, pancreatitis w signs of ductal disruption, likely ETOH hepatitis. MRCP w/o signs of gallstones/choledocholithiasis/cbd dilation. She is s/p ERCP 08/28 w pancreatic duct stent placement, pancreatic sphincterectomy. Clinically improving, though currently having ileus likely from pancreatitis and also uses of narcotics - Low fat diet. - Relistor 12mg subQ one dose today; Continue Miralax 17g daily. Encourage ambulation - Symptomatic management w analgesics and antiemetics prn ; try to wean off narcotics - Repeat CT abd/pelvis 4 weeks; repeat ERCP for stent removal in 4 week's time. - ETOH cessation - Watch for s/s of ETOH withdrawals/DT Admission and Anticipated Discharge Date Admission Date: August 27, 2019 Supervising Physician Co-Signing Physician Notes I saw and evaluated the patient. She does persist in having some discomfort but overall appears to be improved as compared to admission. Plan Patient to follow-up with Dr. Shea in the office in 2 to 4 weeks Please call with any questions or concerns Patient should avoid all alcohol consumption Subjective Pt reports still having abd pain, but eating solid meals for breakfast this AM w/o increased pain, n/v. Passed little amt of stool, is passing flatus. Review of Systems Review of Systems: All systems reviewed & are unremarkable except as noted in HPI & below Physical Exam Constitutional: WD/WN, vitals as above well groomed and cooperative Eyes: PERRL, conjunctivae normal, anicteric sclerae ENMT: external ear and nose normal, oropharynx normal Respiratory: normal respiratory effort, lungs clear to auscultation Cardiovascular: RRR, no murmur, no edema Gastrointestinal (Abdomen): Inspection/Auscultation: + abdomen distended (mild) and normal bowel sounds Percussion/Palpation: + abdomen tender (across upper) Skin: no rashes, warm and dry no jaundice Psychiatric: A+Ox3, euthymic affect Lymphatic: no lymphedema Results & Data ([facility]) Vital Signs (Past 12 Hours) Vital Signs Temp Pulse Resp BP Pulse Ox 09/01/19 08:00 154/91 H 09/01/19 06:58 36.5 C 76 18 185/98 H 96 09/01/19 01:13 130/75 09/01/19 00:10 36.7 C 72 16 143/80 H 95 (1) Acute alcoholic pancreatitis Acute pancreatitis complication: unspecified Qualified Code(s): K85.20 - Al cohol induced acute pancreatitis without necrosis or infection
[2019-09-01] MEDS ORDERED: METHYLNALTREXONE BROMIDE 12 MG/0.6 ML VIAL SQ ONE (12:00)
--- NOTE | 2019-09-01 12:15 | Surgery Progress Note ---
Date of Service September 01, 2019 Assessment & Plan (1) Pancreatitis, acute: Acute alcoholic pancreatitis -avss - no leukocytosis - pain improving slowly - passing gas and small bm last night - likely Ileus per CT scan given severe pancreatitis Plan: No surgical indication at this time Needs to ambulate more to increase GI motility. Continue low fat diet continue medical management our services signing off please call with questions or concerns (2) Ileus: Secondary to severe acute pancreatitis pain improving + bowel function ambulate hallway as much as possible decrease narcotic use if able plan as above Dr. Watson has seen and examined pt, agrees with above. Subjective feeling better, pain is better but still present no n/v tolerated low fat diet small bowel movement last night, passing flatus not much ambulation Physical Exam Constitutional: WD/WN, vitals as above no acute distress Gastrointestinal (Abdomen): Inspection/Auscultation: abdomen normal to inspection and + abdomen distended (mild) Percussion/Palpation: + abdomen tender and abdomen soft; no guarding and abdomen not rigid Skin: no rashes, warm and dry Results & Data Vital Signs (Past 12 Hours) Vital Signs Temp Pulse Resp BP Pulse Ox 09/01/19 08:00 154/91 H 09/01/19 06:58 36.5 C 76 18 185/98 H 96 09/01/19 01:13 130/75 Laboratory Results 09/01/19 09/01/19 09/01/19 Range/Units 08:25 08:25 08:25 WBC 4.99 (4.8-10.8) K/uL RBC 3.04 L (4.2-5.4) M/uL Hgb 11.0 L (12.0-16.0) g/dL Hct 31.0 L (37-47) % MCV 102.0 H (80-100) fL MCH 36.2 H (25-34) pg MCHC 35.5 (32-36) g/dL RDW Std Deviation 45.8 (36.4-46.3) fL RDW Coeff of Meme 12.4 (11.5-14.5) % Plt Count 176 D (130-400) K/uL MPV 9.7 (7.4-10.4) fL Immature Gran % (Auto) 0.6 % Neut % (Auto) 60.1 % Lymph % (Auto) 25.5 % Dim[place] % (Auto) 13.8 % Eos % (Auto) 0.0 % Baso % (Auto) 0.0 % Neut # (Auto) 3.00 (1.4-6.5) K/uL Lymph # (Auto) 1.27 (1.2-3.4) K/uL [place] # (Auto) 0.69 H (0.11-0.59) K/uL Eos # (Auto) 0.00 (0-0.5) K/uL Baso # (Auto) 0.00 (0-0.2) K/uL Immature Gran # (Auto) 0.03 H (0.00-0.02) K/uL Sodium 137 (136-145) mmol/L Potassium 3.2 L (3.5-5.1) mmol/L Chloride 105 (98-107) mmol/L Carbon Dioxide 26 (21-32) mmol/L Anion Gap 7.0 (3-11) BUN 2 L (7-18) mg/dl Creatinine 0.51 L (0.6-1.2) mg/dl Est Cr Clr Drug Dosing 170.6 ml/min Est GFR ( Amer) 147.5 Est GFR (Non-Af Amer) 127.2 BUN/Creatinine Ratio 4.5 L (10-20) Glucose 80 (70-99) mg/dl Calcium 8.5 (8.5-10.1) mg/dl Vancomycin Trough 14.7 (See Comment) mcg/ml U Codeine Confrm GC/MS (<50) ng/mL Ur Morphine (GC/MS) (<50) ng/mL Ur Hydrocodone (GC/MS) (<50) ng/mL Ur Norhydrocodone (<50) ng/mL Ur Noroxycodone (<50) ng/mL Urine Oxycodone (GC/MS) (<50) ng/mL U Oxymorphone GC/MS (<50) ng/mL Ur Hydromorphone (GC/MS) (<50) ng/mL Urine MDEA MDMA Urine MDMA Drug Screen Comment 08/28/19 Range/Units 06:30 WBC (4.8-10.8) K/uL RBC (4.2-5.4) M/uL Hgb (12.0-16.0) g/dL Hct (37-47) % MCV (80-100) fL MCH (25-34) pg MCHC (32-36) g/dL RDW Std Deviation (36.4-46.3) fL RDW Coeff of Meme (11.5-14.5) % Plt Count (130-400) K/uL MPV (7.4-10.4) fL Immature Gran % (Auto) % Neut % (Auto) % Lymph % (Auto) % [place] % (Auto) % Eos % (Auto) % Baso % (Auto) % Neut # (Auto) (1.4-6.5) K/uL Lymph # (Auto) (1.2-3.4) K/uL [place] # (Auto) (0.11-0.59) K/uL Eos # (Auto) (0-0.5) K/uL Baso # (Auto) (0-0.2) K/uL Immature Gran # (Auto) (0.00-0.02) K/uL Sodium (136-145) mmol/L Potassium (3.5-5.1) mmol/L Chloride (98-107) mmol/L Carbon Dioxide (21-32) mmol/L Anion Gap (3-11) BUN (7-18) mg/dl Creatinine (0.6-1.2) mg/dl Est Cr Clr Drug Dosing ml/min Est GFR ( Amer) Est GFR (Non-Af Amer) BUN/Creatinine Ratio (10-20) Glucose (70-99) mg/dl Calcium (8.5-10.1) mg/dl Vancomycin Trough (See Comment) mcg/ml U Codeine Confrm GC/MS NEGATIVE (<50) ng/mL Ur Morphine (GC/MS) NEGATIVE (<50) ng/mL Ur Hydrocodone (GC/MS) NEGATIVE (<50) ng/mL Ur Norhydrocodone NEGATIVE (<50) ng/mL Ur Noroxycodone NEGATIVE (<50) ng/mL Urine Oxycodone (GC/MS) 622 H (<50) ng/mL U Oxymorphone GC/MS 213 H (<50) ng/mL Ur Hydromorphone (GC/MS) 2290 H (<50) ng/mL Urine MDEA negative MDMA negative Urine MDMA negative Drug Screen Comment SEE NOTE
[2019-09-01] MEDS: POTASSIUM CHLORIDE 10 MEQ TABCR PO SCH ×2 (13:45→20:21)
[2019-09-01] MEDS ORDERED: VANCOMYCIN HCL 1,250 MG in SODIUM CHLORIDE 0.9% 250 ML IV SCH (14:00)
[2019-09-01] MEDS: VANCOMYCIN HCL 1,250 MG in SODIUM CHLORIDE 0.9% 250 ML IV SCH ×2 (15:53→23:57)
--- NOTE | 2019-09-01 17:31 | Ultrasound Report ---
ULTRASOUND RIGHT UPPER EXTREMITY VENOUS CLINICAL HISTORY: Right arm pain. Swelling and erythema status post line removal. COMPARISON STUDY: No priors.. TECHNIQUE: Real-time, grayscale, and color Doppler sonography of the deep veins of the right upper ex tremity is performed. Compression and augmentation were utilized. FINDINGS: There is no sonographic evidence of deep venous thrombosis identified in the right upper ex tremity. The right internal jugular, axillary, and brachial veins are patent and normally compressibl e. Normal venous waveforms and augmentation are seen within the right subclavian vein. The basilic ve in is clear. There is a long segment of nearly occlusive to occlusive superficial venous thrombus wit hin the right cephalic vein in the mid to distal upper extremity. This extends approximately 10 cm in length. The visualized radial and ulnar veins are patent. IMPRESSION: 1. There is no sonographic evidence of deep venous thrombosis identified in the right upper extremity . 2. There is a long segment of nearly occlusive to occlusive superficial venous thrombus in the cephal ic vein as above. ACT 112: Negative or not required by law. Electronically signed by: Felice Amato M.D. 09/01/2019 5:30 PM
--- NOTE | 2019-09-01 21:28 | Hospitalist Progress Note ---
Date of Service September 01, 2019 Assessment & Plan (1) Acute alcoholic pancreatitis: Severe acute alcoholic pancreatitis at time of admission. GI consulted. Received IV fluids. No apparent biliary tract obstruction per US and MRCP. ERCP with pancreatic stent placement performed. Clinically improved. (2) Elevated transaminase level: Probably secondary to alcoholic hepatitis. Improved. (3) Ascites: S/P paracentesis. Probably secondary to pancreatitis. (4) Alcohol withdrawal: Managed with gabapentin protocol. Symptoms improved. (5) Alcoholism: Pt interested in counseling and is considering different options. (6) Sepsis: Developed signs / symptoms of possible sepsis on 08/27 in setting of pancreatitis and alcohol withdrawal. Blood and urine cultures obtained and pt received broad spectrum antibiotics. Urine culture grew E coli. 2 out of 2 blood cultures grew coag neg Staph. Echo did not show any apparent valvular vegetations. Tenderness right antecubital fossa at IV or phlebotomy sited- probable phlebitis, possible septic. US RUE demonstrated superficial phlebitis. Consider LU. Currently receiving IV vanco + TMP/sulfa. Review case with ID. (7) Gram-positive cocci bacteremia: As noted above. (8) UTI (urinary tract infection): As noted above. (9) Hypokalemia: K at time of admission 3.3. Hypokalemia probably secondary to emesis. K today = 3.2. Replace. Follow. (10) Anemia: Hgb today = 11.0. Follow. (11) Thrombocytopenia: Platelet count as low as 71,000. Platelet count today = 176,000. Follow. (12) Smoking: Nicotine patch. Smoking cessation counseling. (13) DVT prophylaxis: Received enoxaparin which was subsequently stopped because of invasive procedures and thrombocytopenia. SCD's. Ambulate. (14) Discharge planning issues: Discharge disposition to be determined. Family Medicine follow-up with Dr. Perez. Admission and Anticipated Discharge Date Admission Date: August 27, 2019 Subjective Recheck for pancreatitis, alcohol withdrawal, and other problems. Patient seen in their room around 1520 with assistance of team primary care physician. Overall, doing better. Still has some epigastric pain, but no nausea, vomiting, diarrhea, melena, hematochezia. Anxious. No tremors, sweats, or hallucinations. Review of Systems: Constitutional- no fever. Cardiac- no chest pain. Pulmonary- no cough or SOB. GI- as noted above. - no urinary symptoms. Otherwise, as noted above. Physical Exam Constitutional: no acute distress Respiratory: no respiratory distress Auscultation: lungs clear to auscultation bilaterally Cardiovascular: Rate/Rhythm: regular rate and regular rhythm Heart Sounds: no gallop Vessels: no JVD Extremities: no calf tenderness and no edema Gastrointestinal (Abdomen): Inspection/Auscultation: + abdomen distended Percussion/Palpation: abdomen soft; abdomen nontender Musculoskeletal: Extremities: + extremities abnormal to inspection (erythema and superfical tenderness right antecubital fossa) and no cyanosis Skin: no rashes, warm and dry Psychiatric: Orientation: alert and oriented x 3 Affect: euthymic affect Results & Data Results & Data ([facility]) Vital Signs (Past 12 Hours) Vital Signs Temp Pulse Resp BP Pulse Ox 09/01/19 16:15 36.6 C 78 16 144/84 H 96 Laboratory Results Laboratory Results - last 24 hr 08/28/19 09/01/19 09/01/19 06:30 08:25 08:25 WBC RBC Hgb Hct MCV MCH MCHC RDW Std Deviation RDW Coeff of Meme Plt Count MPV Immature Gran % (Auto) Neut % (Auto) Lymph % (Auto) Alexander % (Auto) Eos % (Auto) Baso % (Auto) Neut # (Auto) Lymph # (Auto) Alexander # (Auto) Eos # (Auto) Baso # (Auto) Immature Gran # (Auto) Sodium 137 Potassium 3.2 L Chloride 105 Carbon Dioxide 26 Anion Gap 7.0 BUN 2 L Creatinine 0.51 L Est Cr Clr Drug Dosing 170.6 Est GFR ( Amer) 147.5 Est GFR (Non-Af Amer) 127.2 BUN/Creatinine Ratio 4.5 L Glucose 80 Calcium 8.5 Vancomycin Trough 14.7 U Codeine Confrm GC/MS NEGATIVE Ur Morphine (GC/MS) NEGATIVE Ur Hydrocodone (GC/MS) NEGATIVE Ur Norhydrocodone NEGATIVE Ur Noroxycodone NEGATIVE Urine Oxycodone (GC/MS) 622 H U Oxymorphone GC/MS 213 H Ur Hydromorphone (GC/MS) 2290 H Urine MDEA negative MDMA negative Urine MDMA negative Drug Screen Comment SEE NOTE 09/01/19 08:25 WBC 4.99 RBC 3.04 L Hgb 11.0 L Hct 31.0 L MCV 102.0 H MCH 36.2 H MCHC 35.5 RDW Std Deviation 45.8 RDW Coeff of Meme 12.4 Plt Count 176 D MPV 9.7 Immature Gran % (Auto) 0.6 Neut % (Auto) 60.1 Lymph % (Auto) 25.5 Alexander % (Auto) 13.8 Eos % (Auto) 0.0 Baso % (Auto) 0.0 Neut # (Auto) 3.00 Lymph # (Auto) 1.27 Alexander # (Auto) 0.69 H Eos # (Auto) 0.00 Baso # (Auto) 0.00 Immature Gran # (Auto) 0.03 H Sodium Potassium Chloride Carbon Dioxide Anion Gap BUN Creatinine Est Cr Clr Drug Dosing Est GFR ( Amer) Est GFR (Non-Af Amer) BUN/Creatinine Ratio Glucose Calcium Vancomycin Trough U Codeine Confrm GC/MS Ur Morphine (GC/MS) Ur Hydrocodone (GC/MS) Ur Norhydrocodone Ur Noroxycodone Urine Oxycodone (GC/MS) U Oxymorphone GC/MS Ur Hydromorphone (GC/MS) Urine MDEA MDMA Urine MDMA Drug Screen Comment Microbiology 08/30/19 10:46 Blood Aerobic Blood Culture - Preliminary No growth in Aerobic bottle after 48 hours. 08/30/19 10:46 Blood Anaerobic Blood Culture - Preliminary No growth in Anaerobic bottle after 48 hours. 08/30/19 10:56 Blood Aerobic Blood Culture - Preliminary No growth in Aerobic bottle after 48 hours. 08/30/19 10:56 Blood Anaerobic Blood Culture - Final 08/28/19 07:17 Blood Aerobic Blood Culture - Preliminary No growth in Aerobic bottle after 48 hours. 08/28/19 07:17 Blood Anaerobic Blood Culture - Preliminary Coag neg staph not lugdunensis 08/28/19 06:59 Blood Aerobic Blood Culture - Preliminary No growth in Aerobic bottle after 48 hours. 08/28/19 06:59 Blood Anaerobic Blood Culture - Preliminary Coag neg staph not lugdunensis 08/28/19 06:30 Urine,Clean Catch Urine Culture - Final Escherichia coli (1) Acute alcoholic pancreatitis Acute pancreatitis complication: unspecified Qualified Code(s): K85.20 - Alcohol induced acute pancreatitis without necrosis or infection
[2019-09-01] MEDS ORDERED: LORazepam 1 MG TAB PO ONE (21:29)
[2019-09-01] MEDS ORDERED: LORazepam 1 MG TAB PO SCH (23:45)
[2019-09-02] MEDS: ACETAMINOPHEN 500 MG TAB PO SCH ×3 (03:02→20:24)
[2019-09-02] MEDS: POLYETHYLENE (MIRALAX) 17 GM PACK PO SCH (09:00)
[2019-09-02] MEDS: NICOTINE 21 MG/24 HR TDSY TD SCH (09:02)
[2019-09-02] MEDS: GABAPENTIN 100 MG CAP PO SCH ×3 (09:03→20:24)
[2019-09-02] MEDS: PHENAZOPYRIDINE HCL 200 MG TAB PO SCH ×2 (09:03→13:04)
[2019-09-02] MEDS: POTASSIUM CHLORIDE 10 MEQ TABCR PO SCH ×3 (09:03→20:25)
[2019-09-02] MEDS: SULFAMETHOXAZOLE/TRIMETHOPRIM DS 800/160MG TAB PO SCH ×2 (09:03→20:24)
[2019-09-02] MEDS: ENOXAPARIN INJ 40 MG/0.4 ML SYR SQ SCH (09:04)
[2019-09-02] MEDS: THIAMINE HCL 100 MG TAB PO SCH (09:04)
[2019-09-02] MEDS: BuPROPion SR 150 MG TABCR PO SCH (09:04)
[2019-09-02] MEDS: FOLIC ACID 1 MG TAB PO SCH (09:04)
[2019-09-02] MEDS: MULTIVITAMIN TAB PO SCH (09:04)
[2019-09-02] MEDS: PANTOprazole 40 MG TAB PO SCH (09:04)
[2019-09-02] MEDS: VANCOMYCIN HCL 1,250 MG in SODIUM CHLORIDE 0.9% 250 ML IV SCH ×2 (09:05→16:52)
[2019-09-02] MEDS: HYDROmorphone INJ 0.5 MG/0.5 ML SYR IV PRN ×3 (09:07→22:14)
--- NOTE | 2019-09-02 11:32 | Cardiology Consultation ---
Date of Consultation September 02, 2019 Assessment & Plan (1) Alcoholism: (2) Gram-positive cocci bacteremia: (3) Severe acute pancreatitis: Before proceeding with a transesophageal echocardiogram the patient will need to be screened for COVID. That study was sent to the lab but it will take several days for the results. If the COVID study is negative then we will proceed with the transesophageal echocardiogram. I explained the procedure to the patient. She understands the risk, benefit and intent of the procedure. History of Present Illness Attending Physician: Braydon Sanches MD History of Present Illness This is a 34-year-old female with a history of alcohol abuse who was admitted with acute pancreatitis. She developed a bacteremia with coag negative staph, thought to be from an IV site. She has no previous history of heart disease. She had a resting echocardiogram completed this admission which shows no significant valvular pathology. We have been asked to see her in regard to a transesophageal echocardiogram. Allergies Allergy/AdvReac Type Severity Reaction Status Date / Time Penicillins Allergy Intermediate HIVES Verified 08/26/19 23:31 Home Medications Home Medications Medication Instructions Recorded Confirmed Type bupropion HCl [Wellbutrin SR] 300 mg PO DAILY 08/26/19 08/26/19 History gabapentin 100 mg PO TID 08/26/19 08/26/19 History Patient History Medical History Alcoholism No significant active problems Social History Preferred Language: [place] Irish Communication Ability: Effective Bottom Polisher Required: No Beliefs That Will Affect Care: None marital status: Single Current Living Situation: Alone Other Information That Helps Us Care for You: No Feels Safe at Home: Yes Safety Concerns: Feels Safe At This Time Smoking Status: Current every day smoker Tobacco Type: cigarettes ; Do You Dip or Chew Tobacco: No ; Second Hand Exposure: Yes ; Tobacco Cessation Education R equested by Patient: No Hx Alcohol Use: Yes Alcohol type: wine Hx Substance Use: No Review of Systems Review of Systems: All systems reviewed & are unremarkable except as noted in HPI & below Nothing additional to add. Physical Exam Physical Exam: General: no acute distress and stated age Head: normocephalic, no masses, lesions, tenderness or abnormalities Eyes: conjunctiva are pink and non-injected, sclera clear Neck: supple, no adenopathy, no bruits, normal jugular venous pulse, no hepatojugular reflux Chest: normal shape and normal respiratory effort Lungs: clear to auscultation and percussion Cardiac Exam: - regular rate & rhythm, no murmurs gallops or rubs - normal S1, normal S2 Pulses: 2(+) throughout Abdomen: abdomen soft, non-tender, no abnormal masses and no hepatosplenomegaly Musculoskeletal: no gait disturbance, no joint inflammation, no deforming arthritis Extremities: no edema and no cyanosis Neuro: grossly normal exam Results & Data ([facility]) Vital Signs (Past 12 Hours) Vital Signs Temp Pulse Resp BP Pulse Ox 09/02/19 06:59 36.8 C 96 H 17 120/75 94 09/01/19 23:53 36.5 C 97 H 16 148/88 H 98 Laboratory Results Laboratory Results - last 24 hr 09/02/19 09:25 SARS-CoV-2 RNA (RT-PCR) Pending Medications Administered Current Inpatient Medications Acetaminophen (Tylenol) 1,000 mg PO Q8H [facility] Stop: 09/30/19 19:59 Last Admin: 09/02/19 03:02 Dose: 1,000 mg Documented by: Bupropion HCl (Wellbutrin-Sr) 300 mg PO DAILY [facility]SAY Stop: 09/26/19 08:59 Last Admin: 09/02/19 09:04 Dose: 300 mg Documented by: Enoxaparin Sodium (Lovenox) 40 mg SQ QAM [facility] Stop: 10/02/19 08:59 Last Admin: 09/02/19 09:04 Dose: 40 mg Documented by: Folic Acid (Folvite) 1 mg PO QAM [facility] Stop: 09/26/19 08:59 Last Admin: 09/02/19 09:04 Dose: 1 mg Documented by: Gabapentin (Neurontin) 100 mg PO TID [facility] Stop: 09/30/19 23:49 Last Admin: 09/02/19 09:03 Dose: 100 mg Documented by: Heparin Sodium (Beef Lung) (Heparin Sod 10 Unit/Ml Flush) 5 ml FLUSH PRN PRN PRN Reason: Flush Stop: 09/29/19 01:26 Last Admin: 09/01/19 08:28 Dose: 5 ml Documented by: Hydromorphone HCl (Dilaudid) 0.5 mg IV Q4H PRN PRN Reason: Pain Stop: 09/13/19 06:17 Last Admin: 09/02/19 09:07 Dose: 0.5 mg Documented by: Promethazine HCl 12.5 mg/ (Sodium Chloride) 50.5 mls @ 202 mls/hr IV Q6H PRN PRN Reason: Nausea And Vomiting Stop: 09/26/19 02:15 Last Infusion: 08/27/19 10:54 Dose: Infused Documented by: Lorazepam (Ativan) 1 mg in 2 mls @ 2 mls/min IV UD PRN; Protocol PRN Reason: EtOH Withdrawl AWSS Score 6,7 Stop: 09/26/19 02:15 Last Admin: 09/01/19 11:10 Dose: 2 mls/min Documented by: Lorazepam (Ativan) 2 mg in 4 mls @ 4 mls/min IV UD PRN; Protocol PRN Reason: EtOH Withdrawl AWSS Score 8,9 Stop: 09/26/19 02:15 Last Admin: 08/30/19 05:04 Dose: 4 mls/min Documented by: Lorazepam (Ativan) 3 mg in 6 mls @ 4 mls/min IV ONCE PRN; Protocol PRN Reason: EtOH Withdrawl AWSS Score >=10 Stop: 09/26/19 02:15 Last Admin: 08/27/19 15:26 Dose: 4 mls/min Documented by: Vancomycin HCl 1,250 mg/ (Sodium Chloride) 275 mls @ 125 mls/hr IV Q8H [facility] Stop: 09/15/19 15:59 Last Admin: 09/02/19 09:05 Dose: 125 mls/hr Documented by: Miscellaneous (Remove Nicoderm Patch) 1 ea N/A DAILY@0859 [facility] Stop: 09/30/19 08:58 Last Admin: 09/02/19 09:01 Dose: 1 ea Documented by: Miscellaneous Information (Consult) 1 ea N/A UD PRN PRN Reason: Consult Stop: 09/28/19 05:10 Multivitamins (Multivitamin Tab) 1 tab PO QAM [facility] Stop: 09/26/19 08:59 Last Admin: 09/02/19 09:04 Dose: 1 tab Documented by: Nicotine (Nicoderm Cq) 21 mg TD QAM [facility] Stop: 09/29/19 14:14 Last Admin: 09/02/19 09:02 Dose: 21 mg Documented by: Pantoprazole Sodium (Protonix) 40 mg PO DAILY [facility] Stop: 09/30/19 08:59 Last Admin: 09/02/19 09:04 Dose: 40 mg Documented by: Phenazopyridine HCl (Pyridium) 200 mg PO TID [facility] Stop: 09/02/19 14:01 Last Admin: 09/02/19 09:03 Dose: Not Given Documented by: Polyethylene Glycol (Miralax Powder Packet) 17 gm PO DAILY PRN PRN Reason: Constipation Stop: 09/26/19 03:34 Polyethylene Glycol (Miralax Powder Packet) 17 gm PO DAILY [facility] Stop: 09/30/19 11:44 Last Admin: 09/02/19 09:00 Dose: 17 gm Documented by: Potassium Chloride (Klor-Con M10) 10 meq PO TID [facility] Stop: 10/01/19 13:59 Last Admin: 09/02/19 09:03 Dose: 10 meq Documented by: Thiamine HCl (Vitamin B-1) 100 mg PO QAM [facility] Stop: 09/26/19 08:59 Last Admin: 09/02/19 09:04 Dose: 100 mg Documented by: Trimethoprim/Sulfamethoxazole (Septra Ds 800/160mg Tab) 1 tab PO BID [facility] Stop: 09/09/19 20:59 Last Admin: 09/02/19 09:03 Dose: 1 tab Documented by:
[2019-09-02] MEDS ORDERED: VANCOMYCIN TROUGH ONE ×2 (13:30→15:30)
[2019-09-02 16:04] LABS: Hematocrit (blood only) 33.2 % (37-47); Hemoglobin 11.1 g/dL (12.0-16.0); Immature Granulocytes # (auto) 0.05 K/uL (0.00-0.02); Immature Granulocytes % (auto) 0.8 %; Lymphocytes # (auto) 1.03 K/uL (1.2-3.4); Lymphocytes % (auto) 17.4 %; Mean Corpuscular Hemoglobin 34.9 pg (25-34); Mean Corpuscular Hgb Conc 33.4 g/dL (32-36); Mean Corpuscular Volume 104.4 fL (80-100); Mean Platelet Volume 9.5 fL (7.4-10.4); Monocytes # (auto) 1.39 K/uL (0.11-0.59); Monocytes % (auto) 23.5 %; Neutrophils # (auto) 3.45 K/uL (1.4-6.5); Neutrophils % (auto) 58.3 %; Platelet Count 271 K/uL (130-400); RDW Coefficient of Variation 12.5 % (11.5-14.5); RDW Standard Deviation 47.9 fL (36.4-46.3); Red Blood Count 3.18 M/uL (4.2-5.4); White Blood Count 5.92 K/uL (4.8-10.8)
[2019-09-02 16:11] LABS: BUN Creatinine Ratio 4.7 (10-20); Calcium 8.6 mg/dl (8.5-10.1); Creatinine Clr Calc Pharmacy 124.3 ml/min; Est GFR (African American) 132.9; Est GFR (Non-African American) 114.6; Potassium 3.7 mmol/L (3.5-5.1)
--- NOTE | 2019-09-02 17:53 | Pharmacy Report ---
Pharmacy Abx Dose Short Note - Date of Service September 02, 2019 - Assessment & Plan Assessment 34 year old F receiving IV Vancomycin + PO Bactrim for treatment of Coag. Negative Staph bacteremia, E. coli UTI and pancreatitis with recent ERCP and stenting. Pharmacy is consulted to dose vancomycin. * Day #6 of antimicrobial therapy * Vancomycin dosing changed from Q6hr to Q8hr dosing based on calculated trough of 21.6 yesterday (reported trough in EMR was drawn 3 hrs late). * Repeat trough today is therapeutic @ 19.4 mcg/ml. However, concern for accumulation as Scr has increased from 0.45 --> 0.7 mg/dl. Will continue current dosing but repeat trough level in AM Plan Vancomycin * Trough level of 19.4 mcg/mL is therapeutic * Continue dose of 1,250 mg IV every 8 hours * Goal trough level for bacteremia : 15 to 20 mcg/mL * Trough or random level ordered for: 09/03/19 @ 0730 Pharmacy will continue to follow and will adjust dose/frequency as necessary. Thank you.
--- NOTE | 2019-09-02 22:11 | Hospitalist Progress Note ---
Date of Service September 02, 2019 Assessment & Plan (1) Acute alcoholic pancreatitis: Severe acute alcoholic pancreatitis at time of admission. GI consulted. Received IV fluids. No apparent biliary tract obstruction per US and MRCP. ERCP with pancreatic stent placement performed. Clinically improved. (2) Elevated transaminase level: Probably secondary to alcoholic hepatitis. Improved. (3) Ascites: S/P paracentesis. Probably secondary to pancreatitis. (4) Alcohol withdrawal: Managed with gabapentin protocol. Symptoms improved. (5) Alcoholism: Pt interested in counseling and is considering different options. (6) Sepsis: Developed signs / symptoms of possible sepsis on 08/27 in setting of pancreatitis and alcohol withdrawal. Blood and urine cultures obtained and pt received broad spectrum antibiotics. Urine culture grew E coli. 2 out of 2 blood cultures grew coag neg Staph. Echo did not show any apparent valvular vegetations. Tenderness right antecubital fossa at IV or phlebotomy sited- probable phlebitis, possible septic. US RUE demonstrated superficial phlebitis. Should have LU. Cardiology consulted. Currently receiving IV vanco + TMP/sulfa. Review case with ID once LU results back. (7) Gram-positive cocci bacteremia: As noted above. (8) UTI (urinary tract infection): As noted above. (9) Hypokalemia: K at time of admission 3.3. Hypokalemia probably secondary to emesis. K today = 3.7. Replace as necessary. Follow. (10) Anemia: Hgb as low as 10.5. Hgb today = 11.1. Follow. (11) Thrombocytopenia: Platelet count as low as 71,000. Platelet count today = 271,000. Follow. (12) Smoking: Nicotine patch. Smoking cessation counseling. (13) DVT prophylaxis: Received enoxaparin which was subsequently stopped because of invasive procedures and thrombocytopenia. SCD's. Resume enoxaparin. Ambulate. (14) Discharge planning issues: Discharge disposition to be determined. Family Medicine follow-up with Dr. Perez. Admission and Anticipated Discharge Date Admission Date: August 27, 2019 Subjective Recheck for pancreatitis, alcohol withdrawal, and other problems. Patient seen in their room around 0900. Better. Less epigastric pain, appetite improved; no nausea, vomiting, diarrhea, melena, hematochezia. Less anxious. No tremors, sweats, or hallucinations. Got some rest last night after taking lorazepam. Persistent RUE pain. Review of Systems: Constitutional- no fever. Cardiac- no chest pain. Pulmonary- no cough or SOB. GI- as noted above. - no urinary symptoms. Otherwise, as noted above. Physical Exam Constitutional: no acute distress Respiratory: no respiratory distress Auscultation: lungs clear to auscultation bilaterally Cardiovascular: Rate/Rhythm: regular rate and regular rhythm Heart Sounds: no gallop Vessels: no JVD Extremities: no calf tenderness and no edema Gastrointestinal (Abdomen): Inspection/Auscultation: + abdomen distended Percussion/Palpation: abdomen soft; abdomen nontender Musculoskeletal: Extremities: + extremities abnormal to inspection (erythema and superfical tenderness right antecubital fossa) and no cyanosis Skin: no rashes, warm and dry Psychiatric: Orientation: alert and oriented x 3 Affect: euthymic affect Results & Data Results & Data ([facility]) Laboratory Results Laboratory Results - last 24 hr 09/02/19 09/02/19 09/02/19 09:25 15:40 15:40 WBC 5.92 RBC 3.18 L Hgb 11.1 L Hct 33.2 L MCV 104.4 H MCH 34.9 H MCHC 33.4 RDW Std Deviation 47.9 H RDW Coeff of Meme 12.5 Plt Count 271 D MPV 9.5 Immature Gran % (Auto) 0.8 Neut % (Auto) 58.3 Lymph % (Auto) 17.4 [place] % (Auto) 23.5 Eos % (Auto) 0.0 Baso % (Auto) 0.0 Neut # (Auto) 3.45 Lymph # (Auto) 1.03 L [place] # (Auto) 1.39 H Eos # (Auto) 0.00 Baso # (Auto) 0.00 Immature Gran # (Auto) 0.05 H Sodium Potassium Chloride Carbon Dioxide Anion Gap BUN Creatinine Est Cr Clr Drug Dosing Est GFR ( Amer) Est GFR (Non-Af Amer) BUN/Creatinine Ratio Glucose Calcium Procalcitonin Vancomycin Trough 19.4 SARS-CoV-2 RNA (RT-PCR) Pending 09/02/19 09/02/19 15:40 15:40 WBC RBC Hgb Hct MCV MCH MCHC RDW Std Deviation RDW Coeff of Emme Plt Count MPV Immature Gran % (Auto) Neut % (Auto) Lymph % (Auto) [place] % (Auto) Eos % (Auto) Baso % (Auto) Neut # (Auto) Lymph # (Auto) [place] # (Auto) Eos # (Auto) Baso # (Auto) Immature Gran # (Auto) Sodium 138 Potassium 3.7 D Chloride 107 Carbon Dioxide 26 Anion Gap 6.0 BUN 3 L Creatinine 0.70 Est Cr Clr Drug Dosing 124.3 Est GFR ( Amer) 132.9 Est GFR (Non-Af Amer) 114.6 BUN/Creatinine Ratio 4.7 L Glucose 92 Calcium 8.6 Procalcitonin 0.26 Vancomycin Trough SARS-CoV-2 RNA (RT-PCR) (1) Acute alcoholic pancreatitis Acute pancreatitis complication: unspecified Qualified Code(s): K85.20 - Alcohol induced acute pancreatitis without necrosis or infection
[2019-09-03] MEDS: LORazepam 1 MG TAB PO PRN
[2019-09-03] MEDS: ACETAMINOPHEN 500 MG TAB PO SCH ×3 (04:29→21:59)
[2019-09-03] MEDS ORDERED: VANCOMYCIN TROUGH ONE (07:30)
[2019-09-03] MEDS: VANCOMYCIN HCL 1,250 MG in SODIUM CHLORIDE 0.9% 250 ML IV SCH ×3 (07:55→15:48)
[2019-09-03 08:15] LABS: Basophils # (auto) 0.01 K/uL (0-0.2); Basophils % (auto) 0.2 %; Hematocrit (blood only) 33.1 % (37-47); Immature Granulocytes # (auto) 0.07 K/uL (0.00-0.02); Immature Granulocytes % (auto) 1.2 %; Lymphocytes # (auto) 1.24 K/uL (1.2-3.4); Lymphocytes % (auto) 20.7 %; Mean Corpuscular Hgb Conc 33.2 g/dL (32-36); Mean Corpuscular Volume 105.4 fL (80-100); Mean Platelet Volume 9.4 fL (7.4-10.4); Monocytes # (auto) 1.33 K/uL (0.11-0.59); Monocytes % (auto) 22.2 %; Neutrophils # (auto) 3.34 K/uL (1.4-6.5); Neutrophils % (auto) 55.7 %; Platelet Count 311 K/uL (130-400); RDW Coefficient of Variation 12.6 % (11.5-14.5); RDW Standard Deviation 48.4 fL (36.4-46.3); Red Blood Count 3.14 M/uL (4.2-5.4); White Blood Count 5.99 K/uL (4.8-10.8)
[2019-09-03 08:50] LABS: Albumin Level 2.8 gm/dl (3.4-5.0); BUN Creatinine Ratio 4.6 (10-20); Bilirubin Direct 0.2 mg/dl (0-0.2); C Reactive Protein 2.5 mg/dl (0-0.29); Calcium 8.6 mg/dl (8.5-10.1); Creatinine Clr Calc Pharmacy 120.9 ml/min; Est GFR (African American) 128.4; Est GFR (Non-African American) 110.8; Potassium 3.5 mmol/L (3.5-5.1)
[2019-09-03 08:53] LABS: Albumin Globulin Ratio 0.9 (0.9-2); Bilirubin,Total 0.5 mg/dl (0.2-1); Globulin 3.2 gm/dl (2.5-4.0)
[2019-09-03] MEDS: HYDROmorphone INJ 0.5 MG/0.5 ML SYR IV PRN ×3 (09:28→21:59)
[2019-09-03] MEDS: FOLIC ACID 1 MG TAB PO SCH (09:32)
[2019-09-03] MEDS: POTASSIUM CHLORIDE 10 MEQ TABCR PO SCH ×3 (09:33→21:59)
[2019-09-03] MEDS: MULTIVITAMIN TAB PO SCH (09:34)
[2019-09-03] MEDS: GABAPENTIN 100 MG CAP PO SCH ×3 (09:34→21:59)
[2019-09-03] MEDS: BuPROPion SR 150 MG TABCR PO SCH (09:35)
[2019-09-03] MEDS: NICOTINE 21 MG/24 HR TDSY TD SCH (09:35)
[2019-09-03] MEDS: SULFAMETHOXAZOLE/TRIMETHOPRIM DS 800/160MG TAB PO SCH ×2 (09:36→22:57)
[2019-09-03] MEDS: PANTOprazole 40 MG TAB PO SCH (09:36)
[2019-09-03] MEDS: ENOXAPARIN INJ 40 MG/0.4 ML SYR SQ SCH (09:37)
[2019-09-03] MEDS: POLYETHYLENE (MIRALAX) 17 GM PACK PO SCH ×2 (09:40→18:25)
[2019-09-03] MEDS: THIAMINE HCL 100 MG TAB PO SCH (09:45)
--- NOTE | 2019-09-03 10:51 | Pharmacy Report ---
Pharmacy Abx Dose Short Note - Date of Service September 03, 2019 - Assessment & Plan Assessment 34 year old F receiving Vancomycin for treatment of coag neg staph bacteremia. Day #7 of antimicrobial therapy. Patient is on Vancomycin 1250 mg IV q8h. A trough level obtained yesterday was therapeutic at 19.4. Trough level was re-checked this AM after 2 more doses were given since S creat was trending up. Laboratory Tests 09/03/19 08:05 Vancomycin Trough 20.0 Plan Vancomycin * Trough level of 20 mcg/mL this morning is still therapeutic though at the upper end of goal range. * Goal trough level for Bacteremia: 15 to 20 mcg/mL * Continue dose of Vancomycin 1250 mg IV every 8 hours * Since level seems to be climbing up slightly, will re-check another trough in 48 hrs. Pharmacy will continue to follow and will adjust dose/frequency as necessary. Thank you.
--- NOTE | 2019-09-03 22:57 | Hospitalist Progress Note ---
Date of Service September 03, 2019 Assessment & Plan (1) Acute alcoholic pancreatitis: Severe acute alcoholic pancreatitis at time of admission. GI consulted. Received IV fluids. No apparent biliary tract obstruction per US and MRCP. ERCP with pancreatic stent placement performed. Clinically improved. Will need follow-up with GI. F/U CT recommended in 4 weeks with subsequent ERCP for stent removal. (2) Elevated transaminase level: Probably secondary to alcoholic hepatitis. Improved. (3) Ascites: S/P paracentesis. Probably secondary to pancreatitis. (4) Alcohol withdrawal: Managed with gabapentin protocol. Symptoms improved. (5) Alcoholism: Pt interested in counseling and is considering different options. (6) Sepsis: Developed signs / symptoms of possible sepsis on 08/27 in setting of pancreatitis and alcohol withdrawal. Blood and urine cultures obtained and pt received broad spectrum antibiotics. Urine culture grew E coli. 2 out of 2 blood cultures grew coag neg Staph. Echo did not show any apparent valvular vegetations. Tenderness right antecubital fossa at IV or phlebotomy sited- probable phlebitis, possible septic. US RUE demonstrated superficial phlebitis. Should have LU. Cardiology consulted. Currently receiving IV vanco + TMP/sulfa. Afebrile. CRP 26.60 --> 2.50. Review case with ID once LU results back. (7) Gram-positive cocci bacteremia: As noted above. (8) UTI (urinary tract infection): As noted above. (9) Hypokalemia: K at time of admission 3.3. Hypokalemia probably secondary to emesis. K today = 3.5. Replace as necessary. Follow. (10) Anemia: Hgb as low as 10.5. Hgb today = 11.0. Follow. (11) Thrombocytopenia: Platelet count as low as 71,000. Platelet count today = 311,000. Follow. (12) Smoking: Nicotine patch. Smoking cessation counseling. (13) DVT prophylaxis: Received enoxaparin which was subsequently stopped because of invasive procedures and thrombocytopenia. SCD's ordered. Resumed enoxaparin. Ambulating. (14) Discharge planning issues: Discharge disposition to be determined. Family Medicine follow-up with Dr. Perez. Admission and Anticipated Discharge Date Admission Date: August 27, 2019 Subjective Recheck for pancreatitis, alcohol withdrawal, and other problems. Patient seen in their room around 1420. Less epigastric pain, appetite improved. No nausea, vomiting, diarrhea, melena, hematochezia. No tremors, sweats, or hallucinations. Persistent RUE pain. Has questions about meds, LU, plans after LU. Review of Systems: Constitutional- no fever. Cardiac- no chest pain. Pulmonary- no cough or SOB. GI- as noted above. - no urinary symptoms. Otherwise, as noted above. Physical Exam Constitutional: no acute distress Eyes: + anicteric sclerae Respiratory: no respiratory distress Auscultation: lungs clear to auscultation bilaterally Cardiovascular: Rate/Rhythm: regular rate and regular rhythm Heart Sounds: no gallop Vessels: no JVD Extremities: no calf tenderness and no edema Gastrointestinal (Abdomen): Inspection/Auscultation: + abdomen distended and normal bowel sounds Percussion/Palpation: abdomen soft; abdomen nontender Musculoskeletal: Extremities: + extremities abnormal to inspection (erythema and superfical tenderness right antecubital fossa extending prox) and no cyanosis Skin: no rashes, warm and dry Psychiatric: Orientation: alert and oriented x 3 Affect: euthymic affect Results & Data Results & Data ([facility]) Vital Signs (Past 12 Hours) Vital Signs Temp Pulse Resp BP Pulse Ox 09/03/19 15:33 36.6 C 89 16 155/92 H 98 Laboratory Results Laboratory Results - last 24 hr 09/03/19 09/03/19 09/03/19 08:05 08:05 08:05 WBC 5.99 RBC 3.14 L Hgb 11.0 L Hct 33.1 L MCV 105.4 H MCH 35.0 H MCHC 33.2 RDW Std Deviation 48.4 H RDW Coeff of Meme 12.6 Plt Count 311 MPV 9.4 Immature Gran % (Auto) 1.2 Neut % (Auto) 55.7 Lymph % (Auto) 20.7 [place] % (Auto) 22.2 Eos % (Auto) 0.0 Baso % (Auto) 0.2 Neut # (Auto) 3.34 Lymph # (Auto) 1.24 [place] # (Auto) 1.33 H Eos # (Auto) 0.00 Baso # (Auto) 0.01 Immature Gran # (Auto) 0.07 H Sodium 139 Potassium 3.5 Chloride 107 Carbon Dioxide 25 Anion Gap 8.0 BUN 3 L Creatinine 0.72 Est Cr Clr Drug Dosing 120.9 Est GFR ( Amer) 128.4 Est GFR (Non-Af Amer) 110.8 BUN/Creatinine Ratio 4.6 L Glucose 83 Calcium 8.6 Total Bilirubin 0.5 Direct Bilirubin 0.2 AST 24 ALT 34 Alkaline Phosphatase 174 H C-Reactive Protein 2.50 H Total Protein 6.0 L Albumin 2.8 L Globulin 3.2 Albumin/Globulin Ratio 0.9 Vancomycin Trough 20.0 (1) Acute alcoholic pancreatitis Acute pancreatitis complication: unspecified Qualified Code(s): K85.20 - Alcohol induced acute pancreatitis without necrosis or infection
[2019-09-04] MEDS: VANCOMYCIN HCL 1,250 MG in SODIUM CHLORIDE 0.9% 250 ML IV SCH ×4 (00:49→23:21)
[2019-09-04] MEDS: LORazepam 1 MG TAB PO PRN ×2 (00:49→23:28)
[2019-09-04] MEDS: ACETAMINOPHEN 500 MG TAB PO SCH ×3 (03:09→19:40)
[2019-09-04] MEDS: NICOTINE 21 MG/24 HR TDSY TD SCH (08:14)
[2019-09-04] MEDS: POLYETHYLENE (MIRALAX) 17 GM PACK PO SCH ×2 (08:15→18:00)
[2019-09-04] MEDS: SULFAMETHOXAZOLE/TRIMETHOPRIM DS 800/160MG TAB PO SCH ×2 (08:15→19:40)
[2019-09-04] MEDS: BuPROPion SR 150 MG TABCR PO SCH (08:16)
[2019-09-04] MEDS: PANTOprazole 40 MG TAB PO SCH (08:16)
[2019-09-04] MEDS: THIAMINE HCL 100 MG TAB PO SCH (08:16)
[2019-09-04] MEDS: POTASSIUM CHLORIDE 10 MEQ TABCR PO SCH ×3 (08:16→19:40)
[2019-09-04] MEDS: MULTIVITAMIN TAB PO SCH (08:17)
[2019-09-04] MEDS: FOLIC ACID 1 MG TAB PO SCH (08:17)
[2019-09-04] MEDS: GABAPENTIN 100 MG CAP PO SCH ×3 (08:17→19:40)
[2019-09-04] MEDS: VENLAFAXINE HCL XR 150 MG CAPXR PO SCH (08:18)
[2019-09-04] MEDS: ENOXAPARIN INJ 40 MG/0.4 ML SYR SQ SCH (08:18)
[2019-09-04] MEDS: HYDROmorphone INJ 0.5 MG/0.5 ML SYR IV PRN ×3 (10:26→22:25)
--- NOTE | 2019-09-04 18:06 | Hospitalist Progress Note ---
Date of Service September 04, 2019 Assessment & Plan (1) Acute alcoholic pancreatitis: Severe acute alcoholic pancreatitis at time of admission. GI consulted. Received IV fluids. No apparent biliary tract obstruction per US and MRCP. ERCP with pancreatic stent placement performed. Clinically improved. Will need follow-up with GI. F/U CT recommended in 4 weeks with subsequent ERCP for stent removal. (2) Elevated transaminase level: Probably secondary to alcoholic hepatitis. Improved. (3) Ascites: S/P paracentesis. Probably secondary to pancreatitis. (4) Alcohol withdrawal: Managed with gabapentin protocol. Symptoms improved. (5) Alcoholism: Pt interested in counseling and is considering different options. (6) Sepsis: Developed signs / symptoms of possible sepsis on 08/27 in setting of pancreatitis and alcohol withdrawal. Blood and urine cultures obtained and pt received broad spectrum antibiotics. Urine culture grew E coli. 2 out of 2 blood cultures grew coag neg Staph. Echo did not show any apparent valvular vegetations. Tenderness right antecubital fossa at IV or phlebotomy sited- probable phlebitis, possible septic. US RUE demonstrated superficial phlebitis. Should have LU. Cardiology consulted. Currently receiving IV vanco + TMP/sulfa. Afebrile. CRP 26.60 --> 2.50. Review case with ID once LU results back. (7) Gram-positive cocci bacteremia: As noted above. (8) UTI (urinary tract infection): As noted above. (9) Hypokalemia: K at time of admission 3.3. Hypokalemia probably secondary to emesis. K 09/02 = 3.5. Replace as necessary. Follow. (10) Anemia: Hgb as low as 10.5. Hgb 09/02 = 11.0. Follow. (11) Thrombocytopenia: Platelet count as low as 71,000. Platelet count 09/02 = 311,000. Follow. (12) Smoking: Nicotine patch. Smoking cessation counseling. (13) DVT prophylaxis: Received enoxaparin which was subsequently stopped because of invasive procedures and thrombocytopenia. SCD's ordered. Resumed enoxaparin. Ambulating. (14) Discharge planning issues: Discharge disposition to be determined. Family Medicine follow-up with Dr. Perez. Admission and Anticipated Discharge Date Admission Date: August 27, 2019 Subjective Recheck for pancreatitis, alcohol withdrawal, and other problems. Patient seen in their room around 1010. Appetite better. Intermittent epigastric discomfort, but much better. No nausea, vomiting, diarrhea, melena, hematochezia. No tremors, sweats, or hallucinations. Less RUE pain. Review of Systems: Constitutional- no fever. Cardiac- no chest pain. Pulmonary- no cough or SOB. GI- as noted above. - no urinary symptoms. Otherwise, as noted above. Physical Exam Constitutional: no acute distress Eyes: + anicteric sclerae Respiratory: no respiratory distress Auscultation: lungs clear to ausculta tion bilaterally Cardiovascular: Rate/Rhythm: regular rate and regular rhythm Heart Sounds: no gallop Vessels: no JVD Extremities: no calf tenderness and no edema Gastrointestinal (Abdomen): Inspection/Auscultation: + abdomen distended and normal bowel sounds Percussion/Palpation: abdomen soft; abdomen nontender Musculoskeletal: Extremities: + extremities abnormal to inspection (erythema RUE improved) and no cyanosis Skin: no rashes, warm and dry Psychiatric: Orientation: alert and oriented x 3 Affect: euthymic affect Results & Data Results & Data ([facility]) Vital Signs (Past 12 Hours) Vital Signs Temp Pulse Resp BP Pulse Ox 09/04/19 15:18 36.6 C 74 16 112/73 97 09/04/19 06:51 36.7 C 79 18 123/77 98 Laboratory Results Laboratory Results - last 24 hr 09/02/19 09:25 SARS-CoV-2 RNA (RT-PCR) NEGATIVE (1) Acute alcoholic pancreatitis Acute pancreatitis complication: unspecified Qualified Code(s): K85.20 - Alcohol induced acute pancreatitis without necrosis or infection
[2019-09-05] MEDS: ACETAMINOPHEN 500 MG TAB PO SCH ×3 (05:21→20:15)
[2019-09-05] MEDS ORDERED: VANCOMYCIN TROUGH ONE (07:30)
[2019-09-05 07:50] LABS: Hemoglobin 11.5 g/dL (12.0-16.0); Mean Corpuscular Hemoglobin 35.9 pg (25-34); Mean Corpuscular Hgb Conc 33.8 g/dL (32-36); Mean Corpuscular Volume 106.3 fL (80-100); Mean Platelet Volume 9.5 fL (7.4-10.4); Platelet Count 405 K/uL (130-400); RDW Coefficient of Variation 12.4 % (11.5-14.5); RDW Standard Deviation 48.7 fL (36.4-46.3); White Blood Count 5.82 K/uL (4.8-10.8)
[2019-09-05 08:23] LABS: Albumin Level 3.1 gm/dl (3.4-5.0); BUN Creatinine Ratio 7.7 (10-20); Bilirubin Direct 0.2 mg/dl (0-0.2); Calcium 9.2 mg/dl (8.5-10.1); Creatinine Clr Calc Pharmacy 107.4 ml/min; Est GFR (African American) 111.4; Est GFR (Non-African American) 96.1; Potassium 3.9 mmol/L (3.5-5.1)
[2019-09-05] MEDS: VANCOMYCIN HCL 1,250 MG in SODIUM CHLORIDE 0.9% 250 ML IV SCH (08:25)
[2019-09-05 08:26] LABS: Albumin Globulin Ratio 0.9 (0.9-2); Bilirubin,Total 0.5 mg/dl (0.2-1); C Reactive Protein 1.4 mg/dl (0-0.29); Globulin 3.4 gm/dl (2.5-4.0); Total Protein 6.5 gm/dl (6.4-8.2)
[2019-09-05] MEDS: THIAMINE HCL 100 MG TAB PO SCH (08:26)
[2019-09-05] MEDS: VENLAFAXINE HCL XR 150 MG CAPXR PO SCH (08:26)
[2019-09-05] MEDS: BuPROPion SR 150 MG TABCR PO SCH (08:26)
[2019-09-05] MEDS: PANTOprazole 40 MG TAB PO SCH (08:27)
[2019-09-05] MEDS: FOLIC ACID 1 MG TAB PO SCH (08:27)
[2019-09-05] MEDS: NICOTINE 21 MG/24 HR TDSY TD SCH (08:27)
[2019-09-05] MEDS: GABAPENTIN 100 MG CAP PO SCH ×3 (08:27→20:17)
[2019-09-05] MEDS: MULTIVITAMIN TAB PO SCH (08:27)
[2019-09-05] MEDS: POTASSIUM CHLORIDE 10 MEQ TABCR PO SCH ×3 (08:27→20:16)
[2019-09-05] MEDS: SULFAMETHOXAZOLE/TRIMETHOPRIM DS 800/160MG TAB PO SCH ×2 (08:28→20:17)
[2019-09-05] MEDS: ENOXAPARIN INJ 40 MG/0.4 ML SYR SQ SCH (08:28)
[2019-09-05] MEDS: POLYETHYLENE (MIRALAX) 17 GM PACK PO SCH ×2 (08:28→16:40)
[2019-09-05] MEDS: HYDROmorphone INJ 0.5 MG/0.5 ML SYR IV PRN ×3 (09:43→20:20)
--- NOTE | 2019-09-05 13:25 | Hospitalist Progress Note ---
Date of Service September 05, 2019 Assessment & Plan (1) Acute alcoholic pancreatitis: Severe acute alcoholic pancreatitis at time of admission. GI consulted. Received IV fluids. No apparent biliary tract obstruction per US and MRCP. ERCP with pancreatic stent placement performed. Clinically improved. Will need follow-up with GI. F/U CT recommended in 4 weeks with subsequent ERCP for stent removal. (2) Elevated transaminase level: Probably secondary to alcoholic hepatitis. Improved. (3) Ascites: S/P paracentesis. Probably secondary to pancreatitis. (4) Alcohol withdrawal: Managed with gabapentin protocol. Symptoms improved. (5) Alcoholism: Pt interested in counseling and is considering different options. (6) Sepsis: Developed signs / symptoms of possible sepsis on 08/27 in setting of pancreatitis and alcohol withdrawal. Blood and urine cultures obtained and pt received broad spectrum antibiotics. Urine culture grew E coli. 2 out of 2 blood cultures grew coag neg Staph. Echo did not show any apparent valvular vegetations. Tenderness right antecubital fossa at IV or phlebotomy sited- probable phlebitis, possible septic. US RUE demonstrated superficial phlebitis. Should have LU. Cardiology consulted and procedure planned for 09/05. COVID-19 PCR performed in anticipation of LU and was negative. Currently receiving IV vanco + TMP/sulfa. Afebrile. CRP 26.60 --> 1.40. Review case with ID once LU results back. (7) Gram-positive cocci bacteremia: As noted above. (8) UTI (urinary tract infection): As noted above. (9) Hypokalemia: K at time of admission 3.3. Hypokalemia probably secondary to emesis. K today = 3.9. (10) Anemia: Hgb as low as 10.5. Hgb today = 11.5. Follow. (11) Thrombocytopenia: Platelet count as low as 71,000. Platelet count today = 405,000. Follow. (12) Smoking: Nicotine patch. Smoking cessation counseling. (13) DVT prophylaxis: Received enoxaparin which was subsequently stopped because of invasive pro cedures and thrombocytopenia. SCD's ordered. Resumed enoxaparin. Ambulating. (14) Discharge planning issues: Discharge disposition to be determined. Family Medicine follow-up with Dr. Perez. Admission and Anticipated Discharge Date Admission Date: August 27, 2019 Subjective Recheck for pancreatitis, alcohol withdrawal, and other problems. Patient seen in their room around 0910. Less epigastric discomfort. No nausea, vomiting, diarrhea, melena, hematochezia. No tremors, sweats, or hallucinations. Less RUE pain. Review of Systems: Constitutional- no fever. Cardiac- no chest pain. Pulmonary- no cough or SOB. GI- as noted above. - no urinary symptoms. Otherwise, as noted above. Physical Exam Constitutional: no acute distress Eyes: + anicteric sclerae Respiratory: no respiratory distress Auscultation: lungs clear to auscultation bilaterally Cardiovascular: Rate/Rhythm: regular rate and regular rhythm Heart Sounds: no gallop Vessels: no JVD Extremities: no calf tenderness and no edema Gastrointestinal (Abdomen): Inspection/Auscultation: + abdomen distended and normal bowel sounds Percussion/Palpation: abdomen soft; abdomen nontender Musculoskeletal: Extremities: + extremities abnormal to inspection (erythema RUE improved) and no cyanosis Skin: no rashes, warm and dry Psychiatric: Orientation: alert and oriented x 3 Results & Data Results & Data ([facility]) Vital Signs (Past 12 Hours) Vital Signs Temp Pulse Resp BP Pulse Ox 09/05/19 07:11 36.7 C 67 18 118/74 96 Laboratory Results Laboratory Results - last 24 hr 09/05/19 09/05/19 09/05/19 07:36 07:36 07:36 WBC 5.82 RBC 3.20 L Hgb 11.5 L Hct 34.0 L MCV 106.3 H MCH 35.9 H MCHC 33.8 RDW Std Deviation 48.7 H RDW Coeff of Meme 12.4 Plt Count 405 H MPV 9.5 Sodium 138 Potassium 3.9 Chloride 106 Carbon Dioxide 25 Anion Gap 7.0 BUN 6 L Creatinine 0.81 Est Cr Clr Drug Dosing 107.4 Est GFR ( Amer) 111.4 Est GFR (Non-Af Amer) 96.1 BUN/Creatinine Ratio 7.7 L Glucose 85 Calcium 9.2 Total Bilirubin 0.5 Direct Bilirubin 0.2 AST 24 ALT 34 Alkaline Phosphatase 176 H C-Reactive Protein 1.40 H Total Protein 6.5 Albumin 3.1 L Globulin 3.4 Albumin/Globulin Ratio 0.9 Vancomycin Trough 22.2 (1) Acute alcoholic pancreatitis Acute pancreatitis complication: unspecified Qualified Code(s): K85.20 - Alcohol induced acute pancreatitis without necrosis or infection
--- NOTE | 2019-09-05 14:30 | Cardiology Progress Note ---
Date of Service September 05, 2019 Assessment & Plan (1) Gram-positive cocci bacteremia: Patient admitted with alcoholic pancreatitis. Previously undergone ERCP with pancreatic stenting Coag negative staph bacteremia yielded from blood cultures drawn 08/28/2019, repeat cultures have been negative with patient having received vancomycin treatment in the interim. Plan: Transesophageal echocardiogram is tentatively planned for further assessment of bacteremia. Infection may have been infiltrated right arm antecubital fossa IV access site. Patient's platelet count is stable, no esophageal varices were observed per the report of the recent ERCP. Informed consent was obtained and the patient is agreeable to proceeding. We will make patient n.p.o. after midnight. Subjective Patient seen in follow-up of coagulase-negative Staphylococcus bacteremia. She notes that she is feeling well. Her presenting symptom of abdominal discomfort has resolved. She denies any shortness of breath, denies chest discomfort, denies fevers or chills. Review of Systems Review of Systems: All systems reviewed & are unremarkable except as noted in HPI & below Physical Exam Physical Exam: Temp Pulse Resp BP Pulse Ox 36.7 C 67 18 118/74 96 09/05/19 07:11 09/05/19 07:11 09/05/19 07:11 09/05/19 07:11 09/05/19 07:11 Constitutional: WD/WN, vitals as above ENMT: Dentures noted Respiratory: normal respiratory effort, lungs clear to auscultation Cardiovascular: RRR, no murmur, no edema Neurologic: PERRL, EOMI, accommodation nl, no face palsy, no dysarthria Results & Data Vital Signs (Past 12 Hours) Vital Signs Temp Pulse Resp BP Pulse Ox 09/05/19 07:11 36.7 C 67 18 118/74 96 Laboratory Results Cardiac Enzymes 09/05/19 Range/Units 07:36 AST 24 (15-37) U/L CBC 09/05/19 Range/Units 07:36 WBC 5.82 (4.8-10.8) K/uL RBC 3.20 L (4.2-5.4) M/uL Hgb 11.5 L (12.0-16.0) g/dL Hct 34.0 L (37-47) % Plt Count 405 H (130-400) K/uL Comprehensive Metabolic Panel 09/05/19 Range/Units 07:36 Sodium 138 (136-145) mmol/L Potassium 3.9 (3.5-5.1) mmol/L Chloride 106 (98-107) mmol/L Carbon Dioxide 25 (21-32) mmol/L BUN 6 L (7-18) mg/dl Creatinine 0.81 (0.6-1.2) mg/dl Glucose 85 (70-99) mg/dl Calcium 9.2 (8.5-10.1) mg/dl Direct Bilirubin 0.2 (0-0.2) mg/dl AST 24 (15-37) U/L ALT 34 (12-78) U/L Alkaline Phosphatase 176 H (45-117) U/L Total Protein 6.5 (6.4-8.2) gm/dl Albumin 3.1 L (3.4-5.0) gm/dl Intake and Output 09/04/19 09/05/19 09/05/19 22:59 06:59 14:59 Intake Total 775 / 1780 275 / 1780 275 / 275 Balance 775 / 1780 275 / 1780 275 / 275 Intake: IV 275 / 825 275 / 825 275 / 275 Vancomycin HCl 1,250 mg In Nss 275 / 825 275 / 825 275 / 275 250 ml @ 125 mls/hr IV Q8H [facility] Rx#:[id number] Oral 500 / 955 Other: # Unmeasured Voids 1 2
--- NOTE | 2019-09-05 15:01 | Pharmacy Report ---
Pharmacy Abx Dose Short Note - Date of Service September 05, 2019 - Assessment & Plan Laboratory Tests 09/05/19 07:36 Vancomycin Trough 22.2 Assessment 34 year old F receiving Vancomycin 1250mg IV q8 for treatment of bacteremia. LU planned to further assess bacteremia. Day # 9 of antimicrobial therapy. Plan Vancomycin * Trough level of 22.2 mcg/mL is supratherapeutic * Change to 1000 mg IV every 8 hours * Decreased total daily dose by 20% because patient's levels have been slowly increasing. * Goal trough level for Bacteremia: 15 to 20 mcg/mL * Trough level ordered for: 09/06/19 at 1530 Pharmacy will continue to follow and will adjust dose/frequency as necessary. Thank you.
[2019-09-05] MEDS: VANCOMYCIN HCL 1,000 MG in SODIUM CHLORIDE 0.9% 250 ML IV SCH ×2 (16:36→23:34)
[2019-09-05] MEDS: LORazepam 1 MG/2 ML VIAL IV PRN (23:52)
[2019-09-06] MEDS: HYDROmorphone INJ 0.5 MG/0.5 ML SYR IV PRN ×5 (01:50→23:38)
[2019-09-06] MEDS: ACETAMINOPHEN 500 MG TAB PO SCH ×3 (04:47→21:35)
[2019-09-06] MEDS ORDERED: LIDOCAINE HCL 2% 2 ML VIAL/AMP(20MG/ML) INFIL ONE (07:05)
[2019-09-06] MEDS ORDERED: PROPOFOL IV EMULSION 10 MG/ML 20 ML VIAL IV ONE ×3 (07:05→07:54)
[2019-09-06 07:06] LABS: Est GFR (African American) 118.4; Est GFR (Non-African American) 102.2
--- NOTE | 2019-09-06 07:15 | History & Physical Bridge Note ---
Date of Service September 06, 2019 History & Physical Bridge Note I have examined the patient, reviewed the History & Physical and in the interval since the performance of the History & Physical I have noted the following changes of clinical significance: no changes noted.
--- NOTE | 2019-09-06 07:17 | Anesthesiology Consultation ---
Date of Service September 06, 2019 Assessment & Plan (1) Encounter for pre-operative examination: Chart Review Chart Review: Acceptable Risk for Surgery Consults Requested none ASA ASA3 Proposed Anesthesia Anesthesia Type: MAC Risk / Benefits Reviewed With: PT / POA / Parent / Guardian, Accepts Plan and Informed Consent Obtained History Surgery Operation Date: 08/29/19 14:00 Proposed Procedures p Endoscopic Retrograde Cholangiopancreato - Mae Shea MD Operation Date: 09/06/19 07:30 Proposed Procedures p Transesophageal Echo w/Anesthesia - Mason Parker DO Height/Weight Height: 5 ft 6 in Weight: 81.7 kg Allergies Allergy/AdvReac Type Severity Reaction Status Date / Time Penicillins Allergy Intermediate HIVES Verified 08/26/19 23:31 Medications Home Medications Medication Instructions Recorded Confirmed Last Taken bupropion HCl [Wellbutrin SR] 300 mg PO DAILY 08/26/19 08/26/19 Unknown gabapentin 100 mg PO TID 08/26/19 08/26/19 Unknown venlafaxine 300 mg PO DAILY 09/03/19 09/03/19 Unknown Active Medications Generic Name Dose Route Start Last Admin Trade Name Freq PRN Reason Stop Dose Admin Acetaminophen 1,000 mg 08/31/19 20:00 09/06/19 04:47 Tylenol PO 09/30/19 19:59 Not Given Q8H LINDSAY Bupropion HCl 300 mg 08/27/19 09:00 09/05/19 08:26 Wellbutrin-Sr PO 09/26/19 08:59 300 mg DAILY LINDSAY Administration Enoxaparin Sodium 40 mg 09/02/19 09:00 09/05/19 08:28 Lovenox SQ 10/02/19 08:59 40 mg QAM LINDSAY Administration Folic Acid 1 mg 08/27/19 09:00 09/05/19 08:27 Folvite PO 09/26/19 08:59 1 mg QAM LINDSAY Administration Gabapentin 100 mg 08/31/19 23:50 09/05/19 20:17 Neurontin PO 09/30/19 23:49 100 mg TID LINDSAY Administration Heparin Sodium (Beef Lung) 5 ml 08/30/19 01:27 09/06/19 06:00 Heparin Sod 10 Unit/Ml Flush FLUSH 09/29/19 01:26 5 ml PRN PRN Administration Flush Hydromorphone HCl 0.5 mg 08/30/19 06:18 09/06/19 01:50 Dilaudid IV 09/13/19 06:17 0.5 mg Q4H PRN Administration Pain Promethazine HCl 12.5 mg/ 50.5 mls @ 202 mls/hr 08/27/19 02:16 08/27/19 10:54 Sodium Chloride IV 09/26/19 02:15 Infused Q6H PRN Infusion Nausea And Vomiting Lorazepam 1 mg in 2 mls @ 2 mls/min 08/27/19 02:16 09/05/19 23:52 Ativan IV 09/26/19 02:15 2 mls/min UD PRN Administration EtOH Withdrawl AWSS Score 6,7 Protocol Lorazepam 2 mg in 4 mls @ 4 mls/min 08/27/19 02:16 08/30/19 05:04 Ativan IV 09/26/19 02:15 4 mls/min UD PRN Administration EtOH Withdrawl AWSS Score 8,9 Protocol Lorazepam 3 mg in 6 mls @ 4 mls/min 08/27/19 02:16 08/27/19 15:26 Ativan IV 09/26/19 02:15 4 mls/min ONCE PRN Administration EtOH Withdrawl AWSS Score >=10 Protocol Vancomycin HCl 1,000 mg/ 270 mls @ 125 mls/hr 09/05/19 16:00 09/06/19 01:44 Sodium Chloride IV 09/15/19 15:59 Infused Q8H LINDSAY Infusion Lorazepam 1 mg 09/02/19 19:48 09/04/19 23:28 Ativan PO 10/02/19 19:47 1 mg HS PRN Administration Insomnia Miscellaneous 1 ea 08/31/19 08:59 09/05/19 08:26 Remove Nicoderm Patch N/A 09/30/19 08:58 1 ea DAILY@0859 LINDSAY Administration Multivitamins 1 tab 08/27/19 09:00 09/05/19 08:27 Multivitamin Tab PO 09/26/19 08:59 1 tab QAM LINDSAY Administration Nicotine 21 mg 08/30/19 14:15 09/05/19 08:27 Nicoderm Cq TD 09/29/19 14:14 21 mg QAM LINDSAY Administration Pantoprazole Sodium 40 mg 08/31/19 09:00 09/05/19 08:27 Protonix PO 09/30/19 08:59 40 mg DAILY LINDSAY Administration Polyethylene Glycol 17 gm 09/03/19 17:00 09/05/19 16:40 Miralax Powder Packet PO 10/03/19 16:59 17 gm BID@09,17 LINDSAY Administration Potassium Chloride 10 meq 09/01/19 14:00 09/05/19 20:16 Klor-Con M10 PO 10/01/19 13:59 10 meq TID LINDSAY Administration Thiamine HCl 100 mg 08/27/19 09:00 09/05/19 08:26 Vitamin B-1 PO 09/26/19 08:59 100 mg QAM LINDSAY Administration Trimethoprim/Sulfamethoxazole 1 tab 08/30/19 21:00 09/05/19 20:17 Septra Ds 800/160mg Tab PO 09/09/19 20:59 1 tab BID LINDSAY Administration Venlafaxine HCl 300 mg 09/04/19 09:00 09/05/19 08:26 Effexor Extended Release PO 10/04/19 08:59 300 mg DAILY LINDSAY Administration NPO Date Last Intake of Fluids: 09/05/19 Time Last Intake of Fluids: 23:59 Last Intake of Fluids Comment: unknown- patient unable to identify last time Date Last Intake of Solids: 09/05/19 Time Last Intake of Solids: 23:59 Last Intake of Solids Comment: unknown- patient unable to identify last time Past Medical History Medical History (Updated 09/06/19 @ 07:31 by Juvenal Hassan DO) Alcoholism No significant active problems Exercise / Class Metabolic Activity II 4-5 Yardwork/Stairs/Walk up hill Past Surgical History Surgical History (Updated 09/06/19 @ 07:27 by Juvenal Hassan DO) S/P appendectomy S/P ERCP Past Anesthesia History No Hx of Anesthesia Complications and No Family Hx of Anesthesia Complications History of PONV No Hx of PONV and No Hx of Motion Sickness Social History Smoking Status: Current every day smoker tobacco type: cigarettes Do You Dip or Chew Tobacco: No Hx Alcohol Use: Yes Alcohol type: wine alcohol intake frequency: 0-2 drinks per day Hx Substance Use: No substance use type: does not use Physical Exam Vital Signs Last Vital Signs Temp 98.1 F 09/06/19 07:11 Pulse 67 09/06/19 07:20 Resp 16 09/06/19 07:20 BP 119/76 09/06/19 07:20 Pulse Ox 97 09/06/19 07:20 ENMT Mouth: + dentures Thyromental Distance: > or= 3.5 Finger Breadths Mallampati Class: II Neck normal visual inspection Respiratory normal respiratory effort Auscultation: lungs clear to auscultation bilaterally Cardiovascular Rate/Rhythm: regular rate and regular rhythm Testing Laboratory Results 09/05/19 07:36 09/06/19 06:02 PT 11.0 Seconds (9.0-12.0) 08/26/19 22:17 INR 1.0 (0.9-1.1) 08/26/19 22:17 Urine Color [place] 08/28/19 06:30 Urine Appearance Turbid (Clear) A 08/28/19 06:30 Urine pH 5.5 (4.5-7.5) 08/28/19 06:30 Ur Specific [place] 1.028 (1.000-1.030) 08/28/19 06:30 Urine Protein 1+ (Negative) H 08/28/19 06:30 Urine Glucose (UA) Negative (Negative) 08/28/19 06:30 Urine Ketones 1+ (Negative) H 08/28/19 06:30 Urine Nitrite Positive (Negative) A 08/28/19 06:30 Ur Leukocyte Esterase 1+ (Negative) H 08/28/19 06:30 Urine WBC (Auto) >30 /hpf (0-5) H 08/28/19 06:30 Urine RBC (Auto) 10-30 /hpf (0-4) H 08/28/19 06:30 U Hyaline Cast (Auto) 10-30 /lpf (0-5) H 08/28/19 06:30 U Epithel Cells (Auto) >30 /lpf (0-5) H 08/28/19 06:30 Urine Bacteria (Auto) 4+ (Negative) H 08/28/19 06:30 Urine Test Negative (Negative) 08/28/19 06:30 08/28/19 07:17 Aerobic Blood Culture - Final Blood No growth in Aerobic bottle after 5 days. Anaerobic Blood Culture - Final Coag neg staph not lugdunensis 08/28/19 06:59 Aerobic Blood Culture - Final Blood No growth in Aerobic bottle after 5 days. Anaerobic Blood Culture - Final Coag neg staph not lugdunensis 08/30/19 10:46 Aerobic Blood Culture - Final Blood No growth in Aerobic bottle after 5 days. Anaerobic Blood Culture - Final No growth in Anaerobic bottle after 5 days. 08/30/19 10:56 Aerobic Blood Culture - Final Blood No growth in Aerobic bottle after 5 days. Anaerobic Blood Culture - Final 08/28/19 06:30 Urine Culture - Final Urine,Clean Catch Escherichia coli Electrocardiogram Date: 08/28/19 Findings: + ST @ (129 bpm) Chest X-Ray Date: 08/29/19 IMPRESSION: 1. A left-sided PICC line has been placed as above. 2. Left larger right pleural effusions with left basilar consolidation. Pleural effusions have modestly increased from 08/28/2019. Echocardiogram Date: 08/29/19 There is no evidence of a mass or vegetation LV is normal in size LV is hyperdynamic EF 60-65% RV systolic function is normal LA size is normal RA size is normal
--- NOTE | 2019-09-06 08:13 | Post Operative Brief Note ---
Cardiology Brief Post Op Date of Surgery September 06, 2019 Pre & Post Diagnosis Operation Date: 08/29/19 14:00 preoperative diagnosis: bacteremia Postoperative diagnosis: normal LU no vegetation Procedure After informed consent was obtained and a time out was performed, patient underwent LU. Vital signs were monitored in the standard fashion. 500 mg of IV propofol and 40 mg of IV lidocaine were administered with the assistance of the anesthesia provider, Dr Hassan. The LU was normal. Kaitara Taraka DO Assistant Fidencio Wilde, RCS Estimated Blood Loss 0 Findings Consistent with Post-Op Diagnosis Specimens Specimen Description: not applicable Anesthesia Type MAC Complications none
--- NOTE | 2019-09-06 08:45 | Anesthesiology Progress Note ---
Date of Service September 06, 2019 Anesthesia Post Procedure Vital Signs Vital Signs: Temp Pulse Pulse Resp BP Pulse Ox 09/06/19 08:28 81 16 106/75 98 09/06/19 08:20 64 16 81/60 L 99 09/06/19 08:05 64 16 95/53 L 99 09/06/19 07:20 67 16 119/76 97 09/06/19 07:11 98.1 F 82 16 126/81 95 09/05/19 22:59 97.7 F 64 16 127/74 95 09/05/19 16:01 97.7 F 64 16 108/69 95 Pain Intensity Abdomen: Pain Intensity: 4 Transfer of Care Handoff Completed per policy Notes Mental Status: alert / awake / arousable and participated in evaluation Patient Amnestic to Procedure: Yes Nausea / Vomiting: adequately controlled Pain: adequately controlled Airway Patency, RR, SpO2: stable & adequate BP & HR: stable & adequate Hydration State: stable & adequate Anesthetic Complications: no major complications apparent and Pt Satisfied with anesthetic care
[2019-09-06] MEDS: VANCOMYCIN HCL 1,000 MG in SODIUM CHLORIDE 0.9% 250 ML IV SCH ×2 (09:57→18:50)
[2019-09-06] MEDS: POTASSIUM CHLORIDE 10 MEQ TABCR PO SCH ×3 (10:02→21:34)
[2019-09-06] MEDS: FOLIC ACID 1 MG TAB PO SCH (10:02)
[2019-09-06] MEDS: POLYETHYLENE (MIRALAX) 17 GM PACK PO SCH ×2 (10:03→17:31)
[2019-09-06] MEDS: MULTIVITAMIN TAB PO SCH (10:03)
[2019-09-06] MEDS: PANTOprazole 40 MG TAB PO SCH (10:04)
[2019-09-06] MEDS: SULFAMETHOXAZOLE/TRIMETHOPRIM DS 800/160MG TAB PO SCH ×2 (10:04→21:34)
[2019-09-06] MEDS: THIAMINE HCL 100 MG TAB PO SCH (10:04)
[2019-09-06] MEDS: NICOTINE 21 MG/24 HR TDSY TD SCH (10:04)
[2019-09-06] MEDS: BuPROPion SR 150 MG TABCR PO SCH (10:04)
[2019-09-06] MEDS: GABAPENTIN 100 MG CAP PO SCH ×3 (10:04→21:34)
[2019-09-06] MEDS: VENLAFAXINE HCL XR 150 MG CAPXR PO SCH (10:08)
[2019-09-06] MEDS ORDERED: VANCOMYCIN TROUGH ONE ×2 (15:30→17:30)
--- NOTE | 2019-09-06 18:37 | Pharmacy Report ---
Pharmacy Abx Dose Short Note - Date of Service September 06, 2019 - Assessment & Plan Assessment 34 year old F receiving IV Vancomycin for treatment of Coagulase Negative Staph Bacteremia * Day #10 of antimicrobial therapy * LU was normal * No other significant changes Plan Vancomycin * Trough level of 16.8 mcg/mL is therapeutic * Continue dose of 1000 mg IV every 8 hours * Goal trough: ~15 mcg/mL * Trough level ordered for Friday to ensure patient is not accumulating on this dose Pharmacy will continue to follow and will adjust dose/frequency as necessary. Thank you.
[2019-09-06] MEDS ORDERED: FLUCONAZOLE 50 MG TAB PO STA (19:34)
--- NOTE | 2019-09-06 20:40 | Hospitalist Progress Note ---
Date of Service September 06, 2019 Assessment & Plan (1) Acute alcoholic pancreatitis: Severe acute alcoholic pancreatitis at time of admission. GI consulted. Received IV fluids. No apparent biliary tract obstruction per US and MRCP. ERCP with pancreatic stent placement performed. Clinically improved. Will need follow-up with GI. F/U CT recommended in 4 weeks with subsequent ERCP for stent removal. (2) Elevated transaminase level: Probably secondary to alcoholic hepatitis. Improved. (3) Ascites: S/P paracentesis. Probably secondary to pancreatitis. (4) Alcohol withdrawal: Managed with gabapentin protocol. Symptoms improved. (5) Alcoholism: Pt interested in counseling and is considering different options. (6) Sepsis: Developed signs / symptoms of possible sepsis on 08/27 in setting of pancreatitis and alcohol withdrawal. Blood and urine cultures obtained and pt received broad spectrum antibiotics. Urine culture grew E coli. 2 out of 2 blood cultures grew coag neg Staph. Transthoracic echo and transesophageal echo did not show any apparent valvular vegetations. Tenderness right antecubital fossa at IV or phlebotomy sited- probable phlebitis, possible septic. US RUE demonstrated superficial phlebitis. Currently receiving IV vanco + TMP/sulfa. Afebrile. CRP 26.60 --> 1.40. Check repeat blood cultures. Review case with ID. (7) Gram-positive cocci bacteremia: As noted above. (8) UTI (urinary tract infection): As noted above. (9) Hypokalemia: K at time of admission 3.3. Hypokalemia probably secondary to emesis. K yesterday = 3.9. (10) Anemia: Hgb as low as 10.5. Hgb yesterday = 11.5. Follow. (11) Thrombocytopenia: Platelet count as low as 71,000. Platelet count yesterday = 405,000. Follow. (12) Smoking: Nicotine patch. Smoking cessation counseling. (13) DVT prophylaxis: Received enoxaparin which was subsequently stopped because of invasive procedures and thrombocytopenia. SCD's ordered. Resumed enoxaparin. Ambulating. (14) Discharge planning issues: Antibiotic strategy and discharge disposition to be determined. Family Medicine follow-up with Dr. Perez. Admission and Anticipated Discharge Date Admission Date: August 27, 2019 Subjective Recheck for pancreatitis, alcohol withdrawal, and other problems. Patient seen in their room around 1920. Underwent LU this morning. Procedure went well. Persistent RUE pain, but somewhat better. No fever or chills. Intermittent epigastric pain without nausea or vomiting. Ambulating. Review of Systems: Constitutional- no fever. Cardiac- no chest pain. Pulmonary- no cough or SOB. GI- as noted above. - no urinary symptoms. Otherwise, as noted above. Physical Exam Constitutional: no acute distress Eyes: + anicteric sclerae Respiratory: no respiratory distress Auscultation: lungs clear to auscultation bilaterally Cardiovascular: Rate/Rhythm: regular rate and regular rhythm Heart Sounds: no gallop Vessels: no JVD Extremities: no calf tenderness and no edema Gastrointestinal (Abdomen): Inspection/Auscultation: normal bowel sounds; abdomen not distended Percussion/Palpation: + abdomen tender (mild epigastric) and abdomen soft Musculoskeletal: Extremities: + extremities abnormal to inspection (tender superficial phlebitis RUE with palpable cord, less erythema) and no cyanosis Skin: no rashes, warm and dry Psychiatric: Orientation: alert and oriented x 3 Affect: euthymic affect Results & Data Results & Data ([facility]) Vital Signs (Past 12 Hours) Vital Signs Temp Pulse Pulse Resp BP Pulse Ox 09/06/19 19:45 36.7 C 85 18 114/77 97 09/06/19 16:00 36.5 C 88 18 131/79 99 09/06/19 11:51 36.6 C 67 16 99/63 L 98 09/06/19 11:21 36.6 C 67 16 120/79 97 09/06/19 11:00 75 16 113/75 96 09/06/19 10:20 80 16 113/76 98 09/06/19 09:50 69 16 119/79 97 09/06/19 09:17 75 16 117/76 95 09/06/19 09:03 74 16 108/68 95 Laboratory Results Laboratory Results - last 24 hr 09/06/19 09/06/19 06:02 17:41 Creatinine 0.77 Est Cr Clr Drug Dosing 113.0 Est GFR ( Amer) 118.4 Est GFR (Non-Af Amer) 102.2 Vancomycin Trough 16.8 (1) Acute alcoholic pancreatitis Acute pancreatitis complication: unspecified Qualified Code(s): K85.20 - Alcohol induced acute pancreatitis without necrosis or infection
[2019-09-07] MEDS: LORazepam 1 MG/2 ML VIAL IV PRN (00:06)
[2019-09-07] MEDS: VANCOMYCIN HCL 1,000 MG in SODIUM CHLORIDE 0.9% 250 ML IV SCH ×3 (02:44→18:28)
[2019-09-07] MEDS: ACETAMINOPHEN 500 MG TAB PO SCH ×3 (03:05→20:30)
[2019-09-07 06:34] LABS: Hematocrit (blood only) 35.2 % (37-47); Hemoglobin 11.3 g/dL (12.0-16.0); Mean Corpuscular Hemoglobin 34.5 pg (25-34); Mean Corpuscular Hgb Conc 32.1 g/dL (32-36); Mean Corpuscular Volume 107.3 fL (80-100); Mean Platelet Volume 9.9 fL (7.4-10.4); Platelet Count 481 K/uL (130-400); RDW Coefficient of Variation 12.3 % (11.5-14.5); RDW Standard Deviation 48.5 fL (36.4-46.3); Red Blood Count 3.28 M/uL (4.2-5.4); White Blood Count 7.57 K/uL (4.8-10.8)
[2019-09-07 07:03] LABS: BUN Creatinine Ratio 7.2 (10-20); Calcium 8.7 mg/dl (8.5-10.1); Creatinine Clr Calc Pharmacy 117.6 ml/min; Est GFR (African American) 124.2; Est GFR (Non-African American) 107.2; Potassium 3.5 mmol/L (3.5-5.1)
--- NOTE | 2019-09-07 08:21 | Anesthesiology Progress Note ---
Date of Service September 07, 2019 Anesthesia Post Procedure Vital Signs Vital Signs: Temp Pulse Pulse Resp BP Pulse Ox 09/07/19 07:16 36.8 C 81 16 107/71 97 09/07/19 03:35 36.5 C 63 16 100/61 97 09/07/19 02:45 36.9 C 61 14 103/68 96 09/06/19 23:14 36.6 C 65 16 115/74 99 09/06/19 19:45 36.7 C 85 18 114/77 97 09/06/19 16:00 36.5 C 88 18 131/79 99 09/06/19 11:51 36.6 C 67 16 99/63 L 98 09/06/19 11:21 36.6 C 67 16 120/79 97 09/06/19 11:00 75 16 113/75 96 09/06/19 10:20 80 16 113/76 98 09/06/19 09:50 69 16 119/79 97 09/06/19 09:17 75 16 117/76 95 09/06/19 09:03 74 16 108/68 95 09/06/19 08:28 81 16 106/75 98 Pain Intensity Abdomen: Pain Intensity: 5 Notes Mental Status: alert / awake / arousable and participated in evaluation Patient Amnestic to Procedure: Yes Nausea / Vomiting: adequately controlled Pain: adequately controlled Airway Patency, RR, SpO2: stable & adequate BP & HR: stable & adequate Hydration State: stable & adequate Anesthetic Complications: no major complications apparent and Pt Satisfied with anesthetic care
[2019-09-07] MEDS: VENLAFAXINE HCL XR 150 MG CAPXR PO SCH (09:11)
[2019-09-07] MEDS: POTASSIUM CHLORIDE 10 MEQ TABCR PO SCH ×3 (09:12→20:30)
[2019-09-07] MEDS: POLYETHYLENE (MIRALAX) 17 GM PACK PO SCH ×2 (09:12→18:28)
[2019-09-07] MEDS: FOLIC ACID 1 MG TAB PO SCH (09:12)
[2019-09-07] MEDS: MULTIVITAMIN TAB PO SCH (09:13)
[2019-09-07] MEDS: NICOTINE 21 MG/24 HR TDSY TD SCH (09:13)
[2019-09-07] MEDS: GABAPENTIN 100 MG CAP PO SCH ×3 (09:13→20:30)
[2019-09-07] MEDS: SULFAMETHOXAZOLE/TRIMETHOPRIM DS 800/160MG TAB PO SCH (09:14)
[2019-09-07] MEDS: THIAMINE HCL 100 MG TAB PO SCH (09:14)
[2019-09-07] MEDS: PANTOprazole 40 MG TAB PO SCH (09:14)
[2019-09-07] MEDS: BuPROPion SR 150 MG TABCR PO SCH (09:14)
[2019-09-07] MEDS: HYDROmorphone INJ 0.5 MG/0.5 ML SYR IV PRN ×3 (09:20→20:54)
--- NOTE | 2019-09-07 20:05 | Hospitalist Progress Note ---
Date of Service September 07, 2019 Assessment & Plan (1) Acute alcoholic pancreatitis: Severe acute alcoholic pancreatitis at time of admission. GI consulted. Received IV fluids. No apparent biliary tract obstruction per US and MRCP. ERCP with pancreatic stent placement performed. Clinically improved. Will need follow-up with GI. F/U CT recommended in 4 weeks with subsequent ERCP for stent removal. (2) Elevated transaminase level: Probably secondary to alcoholic hepatitis. Improved. (3) Ascites: S/P paracentesis. Probably secondary to pancreatitis. (4) Alcohol withdrawal: Managed with gabapentin protocol. Symptoms improved. (5) Alcoholism: Pt interested in counseling and is considering different options. (6) Sepsis: Developed signs / symptoms of possible sepsis on 08/27 in setting of pancreatitis and alcohol withdrawal. Blood and urine cultures obtained and pt received broad spectrum antibiotics. Urine culture grew E coli. 2 out of 2 blood cultures grew coag neg Staph. Transthoracic echo and transesophageal echo did not show any apparent valvular vegetations. Tenderness right antecubital fossa at IV or phlebotomy site- probable suppurative phlebitis. US RUE demonstrated superficial phlebitis. Currently receiving IV vanco. Afebrile. CRP 26.60 --> 1.40. Check repeat blood culture today to confirm clearance of bacteremia. Reviewed case with ID. 14 day course of IV vancomycin recommended. Today is day # 11 / 14. No need for additional antibiotics after discharge if repeat blood culture 09/06 negative. (7) Gram-positive cocci bacteremia: As noted above. (8) UTI (urinary tract infection): E coli UTI. Completed course of TMP/sulfa. (9) Hypokalemia: K at time of admission 3.3. Hypokalemia probably secondary to emesis. K today = 3.5. (10) Anemia: Hgb as low as 10.5. Hgb today = 11.3. Follow. (11) Thrombocytopenia: Platelet count as low as 71,000. Platelet count today = 481,000. Follow. (12) Smoking: Nicotine patch. Smoking cessation counseling. (13) DVT prophylaxis: Received enoxaparin which was subsequently stopped because of invasive procedures and thrombocytopenia. SCD's ordered. Resumed enoxaparin. Ambulating. (14) Discharge planning issues: Anticipated discharge to home. No need for outpatient antibiotics. Pt plans on outpatient counseling / support for alcoholism. Family Medicine follow-up with Jacki Escobedo PA-C. Admission and Anticipated Discharge Date Admission Date: August 27, 2019 Subjective Recheck for pancreatitis, alcohol withdrawal, and other problems. Patient seen in their room around 1600. RUE pain improved No fever or chills. Tolerating diet. Epigastric pain improved, no nausea or vomiting. No diarrhea, melena, hematochezia. Ambulating. Review of Systems: Constitutional- no fever. Cardiac- no chest pain. Pulmonary- no cough or SOB. GI- as noted above. - no urinary symptoms. Otherwise, as noted above. Physical Exam Constitutional: no acute distress Eyes: + anicteric sclerae Respiratory: no respiratory distress Auscultation: lungs clear to auscultation bilaterally Cardiovascular: Rate/Rhythm: regular rate and regular rhythm Heart Sounds: no gallop Vessels: no JVD Extremities: no calf tenderness and no edema Gastrointestinal (Abdomen): Inspection/Auscultation: normal bowel sounds; abdomen not distended Percussion/Palpation: abdomen soft; abdomen nontender Musculoskeletal: Extremities: + extremities abnormal to inspection (tender superficial phlebitis RUE with palpable cord, less erythema) and no cyanosis Skin: no rashes, warm and dry Psychiatric: Orientation: alert and oriented x 3 Affect: euthymic affect Results & Data Results & Data ([facility]) Vital Signs (Past 12 Hours) Vital Signs Temp Pulse Resp BP Pulse Ox 09/07/19 14:24 36.7 C 71 16 115/75 99 Laboratory Results Laboratory Results - last 24 hr 09/07/19 09/07/19 05:53 05:53 WBC 7.57 RBC 3.28 L Hgb 11.3 L Hct 35.2 L MCV 107.3 H MCH 34.5 H MCHC 32.1 RDW Std Deviation 48.5 H RDW Coeff of Meme 12.3 Plt Count 481 H MPV 9.9 Sodium 140 Potassium 3.5 Chloride 108 H Carbon Dioxide 26 Anion Gap 6.0 BUN 5 L Creatinine 0.74 Est Cr Clr Drug Dosing 117.6 Est GFR ( Amer) 124.2 Est GFR (Non-Af Amer) 107.2 BUN/Creatinine Ratio 7.2 L Glucose 124 H Calcium 8.7 Microbiology 08/28/19 07:17 Blood Aerobic Blood Culture - Final No growth in Aerobic bottle after 5 days. 08/28/19 07:17 Blood Anaerobic Blood Culture - Final Coag neg staph not lugdunensis 08/28/19 06:59 Blood Aerobic Blood Culture - Final No growth in Aerobic bottle after 5 days. 08/28/19 06:59 Blood Anaerobic Blood Culture - Final Coag neg staph not lugdunensis 08/30/19 10:46 Blood Aerobic Blood Culture - Final No growth in Aerobic bottle after 5 days. 08/30/19 10:46 Blood Anaerobic Blood Culture - Final No growth in Anaerobic bottle after 5 days. 08/30/19 10:56 Blood Aerobic Blood Culture - Final No growth in Aerobic bottle after 5 days. 08/30/19 10:56 Blood Anaerobic Blood Culture - Final 08/28/19 06:30 Urine,Clean Catch Urine Culture - Final Escherichia coli (1) Acute alcoholic pancreatitis Acute pancreatitis complication: unspecified Qualified Code(s): K85.20 - Alcohol induced acute pancreatitis without necrosis or infection
[2019-09-08] MEDS: LORazepam 1 MG TAB PO PRN ×2 (00:09→21:59)
[2019-09-08] MEDS: VANCOMYCIN HCL 1,000 MG in SODIUM CHLORIDE 0.9% 250 ML IV SCH ×3 (01:48→18:20)
[2019-09-08] MEDS: HYDROmorphone INJ 0.5 MG/0.5 ML SYR IV PRN ×5 (01:48→21:59)
[2019-09-08] MEDS: ACETAMINOPHEN 500 MG TAB PO SCH ×3 (02:11→20:48)
[2019-09-08] MEDS ORDERED: VANCOMYCIN TROUGH ONE ×2 (07:30→09:30)
[2019-09-08] MEDS: VENLAFAXINE HCL XR 150 MG CAPXR PO SCH (09:22)
[2019-09-08] MEDS: FOLIC ACID 1 MG TAB PO SCH (09:23)
[2019-09-08] MEDS: POTASSIUM CHLORIDE 10 MEQ TABCR PO SCH ×3 (09:23→20:48)
[2019-09-08] MEDS: POLYETHYLENE (MIRALAX) 17 GM PACK PO SCH ×2 (09:23→18:20)
[2019-09-08] MEDS: NICOTINE 21 MG/24 HR TDSY TD SCH (09:23)
[2019-09-08] MEDS: GABAPENTIN 100 MG CAP PO SCH ×3 (09:24→20:48)
[2019-09-08] MEDS: MULTIVITAMIN TAB PO SCH (09:24)
[2019-09-08] MEDS: PANTOprazole 40 MG TAB PO SCH (09:24)
[2019-09-08] MEDS: THIAMINE HCL 100 MG TAB PO SCH (09:25)
[2019-09-08] MEDS: BuPROPion SR 150 MG TABCR PO SCH (09:25)
[2019-09-08 10:33] LABS: Creatinine Clr Calc Pharmacy 92.6 ml/min; Est GFR (Non-African American) 80.3
--- NOTE | 2019-09-08 12:08 | Pharmacy Report ---
Pharmacy Abx Dose Short Note - Date of Service September 08, 2019 - Assessment & Plan Assessment * Ms Wooten is a 34 year old F receiving Vancomycin for treatment of bacteremia. * Day # 12 of antimicrobial therapy. Plan Vancomycin * Trough level of 18.5 mcg/mL is therapeutic * Continue dose of 1000 mg IV every 8 hours * Goal trough level for bacteremia: 15 to 20 mcg/mL * No further levels have been ordered at this time. Therapy will be completed on 09/09, unless re-ordered. If patient is to continue on vanc beyond this date, will re-assess the need for additional levels. Pharmacy will continue to follow and will adjust dose/frequency as necessary. Thank you.
--- NOTE | 2019-09-08 17:48 | Hospitalist Progress Note ---
Date of Service September 08, 2019 Assessment & Plan (1) Acute alcoholic pancreatitis: Present on admission with abdominal pain associated with nausea and vomiting Li[ase on admission 7867 Received IVF Fluid GI consulted. Gallbladder U/S showed no gallstones or biliary ductal dilatation. MRCP showed Interval development of extensive upper abdominal fluid centered on the pancreas. No apparent biliary tract obstruction per US and MRCP. ERCP with pancreatic stent placement performed. GI recommended to repeat the CT in 4 weeks with subsequent ERCP for stent removal. Clinically improves (2) Elevated transaminase level: Probably secondary to alcoholic hepatitis. ALT 139 and AST 145 on admission Resolved (3) Ascites: CT showed mild to moderate abdominal and pelvic ascites. S/P paracentesis where a total of 60 mL's of dark brown fluid was removed. . Probably secondary to pancreatitis. (4) Alcohol withdrawal: (5) Alcoholism: Managed with gabapentin alcohol withdrawal protocol. Currently no signs of symptoms of alcohol withdrawal or DT Counseling on alcohol cessation (6) Sepsis: (7) Gram-positive cocci bacteremia: Developed signs / symptoms of possible sepsis on 08/27 in setting of pancreatitis and alcohol withdrawal. Blood and urine cultures obtained and pt received broad spectrum antibiotics. Urine culture grew E coli. 2 out of 2 blood cultures grew coag neg Staph. Transthoracic echo and transesophageal echo did not show any apparent valvular vegetations. Tenderness right antecubital fossa at IV or phlebotomy site- probable suppurative phlebitis. US RUE demonstrated superficial phlebitis. Check repeat blood culture today to confirm clearance of bacteremia. Previous hospitalist team discussed case with ID 14 day course of IV vancomycin recommended. Today is day # 12 / 14. No need for additional antibiotics after discharge if repeat blood culture 09/06 negative. (8) UTI (urinary tract infection): E coli UTI. Completed course of TMP/sulfa. (9) Hypokalemia: K at time of admission 3.3. Hypokalemia probably secondary to emesis. K stable Monitor BMP (10) Anemia: Hgb as low as 10.5. Stable . (11) Thrombocytopenia: Possible related to alcohol hepatitis Platelet count as low as 71,000. Platelet count today = 481,000. Resolved (12) Smoking: Nicotine patch. Smoking cessation counseling. (13) DVT prophylaxis: Continue Lovenox subq (14) Discharge planning issues: Anticipated discharge to home. No need for outpatient antibiotics. Pt plans on outpatient counseling / support for alcoholism. Family Medicine follow-up with Jacki Escobedo PA-C. Admission and Anticipated Discharge Date Admission Date: August 27, 2019 Subjective Pt was seen and examined Sitting in bed with no distress Pt said that she feels much better She said that she had a normal bowel movement today Denies any chest pain, palpitation, dizziness and SOB Physical Exam Physical Exam: General- No acute distress Head- atraumatic Eyes- PERRL, EOMI, ENT- oropharynx clear Neck- supple, no JVD Lungs- clear to auscultation Heart- regular rhythm; no murmur Abdomen- normal bowel sounds, soft, nontender Extremities- no calf tenderness Neuro- alert, oriented x 3; PERRL, EOMI; no facial palsy; no dysarthria Skin- warm & dry Results & Data Results & Data ([facility]) Vital Signs (Past 12 Hours) Vital Signs Temp Pulse Resp BP Pulse Ox 09/08/19 15:10 36.9 C 75 18 101/64 99 09/08/19 07:12 36.9 C 78 16 102/71 96 (1) Acute alcoholic pancreatitis Acute pancreatitis complication: unspecified Qualified Code(s): K85.20 - Alcohol induced acute pancreatitis without necrosis or infection
[2019-09-08] MEDS ORDERED: ALTEPLASE, RECOMBINANT 1 MG/ML 2ML VIAL INSTIL ONE (18:00)
[2019-09-09] MEDS: VANCOMYCIN HCL 1,000 MG in SODIUM CHLORIDE 0.9% 250 ML IV SCH ×3 (01:56→17:48)
[2019-09-09] MEDS: HYDROmorphone INJ 0.5 MG/0.5 ML SYR IV PRN ×5 (02:03→23:00)
[2019-09-09] MEDS: ACETAMINOPHEN 500 MG TAB PO SCH ×3 (03:58→20:01)
[2019-09-09] MEDS: VENLAFAXINE HCL XR 150 MG CAPXR PO SCH (09:21)
[2019-09-09] MEDS: NICOTINE 21 MG/24 HR TDSY TD SCH (09:21)
[2019-09-09] MEDS: FOLIC ACID 1 MG TAB PO SCH (09:22)
[2019-09-09] MEDS: POLYETHYLENE (MIRALAX) 17 GM PACK PO SCH ×2 (09:22→17:44)
[2019-09-09] MEDS: POTASSIUM CHLORIDE 10 MEQ TABCR PO SCH ×3 (09:22→21:31)
[2019-09-09] MEDS: PANTOprazole 40 MG TAB PO SCH (09:23)
[2019-09-09] MEDS: THIAMINE HCL 100 MG TAB PO SCH (09:23)
[2019-09-09] MEDS: BuPROPion SR 150 MG TABCR PO SCH (09:23)
[2019-09-09] MEDS: MULTIVITAMIN TAB PO SCH (09:23)
[2019-09-09] MEDS: GABAPENTIN 100 MG CAP PO SCH ×3 (09:23→21:34)
[2019-09-09 12:05] LABS: Creatinine Clr Calc Pharmacy 124.3 ml/min; Est GFR (African American) 132.9; Est GFR (Non-African American) 114.6
--- NOTE | 2019-09-09 18:57 | Hospitalist Progress Note ---
Date of Service September 09, 2019 Assessment & Plan (1) Acute alcoholic pancreatitis: Present on admission with abdominal pain associated with nausea and vomiting Li[ase on admission 7867 Received IVF Fluid GI consulted. Gallbladder U/S showed no gallstones or biliary ductal dilatation. MRCP showed Interval development of extensive upper abdominal fluid centered on the pancreas. No apparent biliary tract obstruction per US and MRCP. ERCP with pancreatic stent placement performed. GI recommended to repeat the CT in 4 weeks with subsequent ERCP for stent removal. Clinically improves (2) Elevated transaminase level: Probably secondary to alcoholic hepatitis. ALT 139 and AST 145 on admission Resolved (3) Ascites: CT showed mild to moderate abdominal and pelvic ascites. S/P paracentesis where a total of 60 mL's of dark brown fluid was removed. . Probably secondary to pancreatitis. (4) Alcohol withdrawal: Managed with gabapentin protocol. Symptoms improved. (5) Alcoholism: Managed with gabapentin alcohol withdrawal protocol. Currently no signs of symptoms of alcohol withdrawal or DT Counseling on alcohol cessation (6) Sepsis: (7) Gram-positive cocci bacteremia: Developed signs / symptoms of possible sepsis on 08/27 in setting of pancreatitis and alcohol withdrawal. Blood and urine cultures obtained and pt received broad spectrum antibiotics. Urine culture grew E coli. 2 out of 2 blood cultures grew coag neg Staph. Transthoracic echo and transesophageal echo did not show any apparent valvular vegetations. Tenderness right antecubital fossa at IV or phlebotomy site- probable suppurative phlebitis. US RUE demonstrated superficial phlebitis. Check repeat blood culture today to confirm clearance of bacteremia. Previous hospitalist team discussed case with ID 14 day course of IV vancomycin recommended. Today is day # 13/ 14. No need for additional antibiotics after discharge if repeat blood culture 09/06 negative. Will complete course of abx tomorrow (8) UTI (urinary tract infection): E coli UTI. Completed course of TMP/sulfa. (9) Hypokalemia: K at time of admission 3.3. Hypokalemia probably secondary to emesis. K stable Monitor BMP (10) Anemia: Hgb as low as 10.5. Stable . (11) Thrombocytopenia: Possible related to alcohol hepatitis Platelet count as low as 71,000. Platelet count today = 481,000. Resolved (12) Smoking: Nicotine patch. Counseling on smoking cessation (13) DVT prophylaxis: Continue Lovenox subq (14) Discharge planning issues: Anticipated discharge home tomorrow No need for outpatient antibiotics. Pt plans on outpatient counseling / support for alcoholism. Family Medicine follow-up with Jacki Escobedo PA-C. Admission and Anticipated Discharge Date Admission Date: August 27, 2019 Subjective Pt was seen and examined Sitting in bed with no distress Pt said that she feels much better Denies any chest pain, palpitation, dizziness and SOB Physical Exam Physical Exam: General- No acute distress Head- atraumatic Eyes- PERRL, EOMI, ENT- oropharynx clear Neck- supple, no JVD Lungs- clear to auscultation Heart- regular rhythm; no murmur Abdomen- normal bowel sounds, soft, nontender Extremities- no calf tenderness Neuro- alert, oriented x 3; PERRL, EOMI; no facial palsy; no dysarthria Skin- warm & dry Results & Data Results & Data ([facility]) Vital Signs (Past 12 Hours) Vital Signs Temp Pulse Resp BP BP Pulse Ox 09/09/19 16:26 36.8 C 68 18 104/69 98 09/09/19 07:35 36.9 C 70 16 100/61 99 (1) Acute alcoholic pancreatitis Acute pancreatitis complication: unspecified Qualified Code(s): K85.20 - Alcohol induced acute pancreatitis without necrosis or infection
[2019-09-09] MEDS: LORazepam 1 MG TAB PO PRN (23:42)
[2019-09-10] MEDS: VANCOMYCIN HCL 1,000 MG in SODIUM CHLORIDE 0.9% 250 ML IV SCH ×3 (02:08→17:53)
[2019-09-10] MEDS: ACETAMINOPHEN 500 MG TAB PO SCH ×3 (04:27→19:47)
[2019-09-10] MEDS: HYDROmorphone INJ 0.5 MG/0.5 ML SYR IV PRN ×3 (07:39→19:46)
[2019-09-10] MEDS: FOLIC ACID 1 MG TAB PO SCH (09:02)
[2019-09-10] MEDS: VENLAFAXINE HCL XR 150 MG CAPXR PO SCH (09:02)
[2019-09-10] MEDS: POTASSIUM CHLORIDE 10 MEQ TABCR PO SCH ×3 (09:02→20:17)
[2019-09-10] MEDS: THIAMINE HCL 100 MG TAB PO SCH (09:03)
[2019-09-10] MEDS: MULTIVITAMIN TAB PO SCH (09:03)
[2019-09-10] MEDS: PANTOprazole 40 MG TAB PO SCH (09:03)
[2019-09-10] MEDS: GABAPENTIN 100 MG CAP PO SCH ×3 (09:03→20:17)
[2019-09-10] MEDS: BuPROPion SR 150 MG TABCR PO SCH (09:03)
[2019-09-10] MEDS: POLYETHYLENE (MIRALAX) 17 GM PACK PO SCH ×2 (09:04→17:54)
[2019-09-10] MEDS: NICOTINE 21 MG/24 HR TDSY TD SCH (09:04)
--- NOTE | 2019-09-10 18:20 | Hospitalist Progress Note ---
Date of Service September 10, 2019 Assessment & Plan (1) Acute alcoholic pancreatitis: Present on admission with abdominal pain associated with nausea and vomiting Li[ase on admission 7867 Received IVF Fluid GI consulted. Gallbladder U/S showed no gallstones or biliary ductal dilatation. MRCP showed Interval development of extensive upper abdominal fluid centered on the pancreas. No apparent biliary tract obstruction per US and MRCP. ERCP with pancreatic stent placement performed. GI recommended to repeat the CT in 4 weeks with subsequent ERCP for stent removal. Will need to follow up with [facility] Resolved (2) Elevated transaminase level: Probably secondary to alcoholic hepatitis. ALT 139 and AST 145 on admission Resolved (3) Ascites: CT showed mild to moderate abdominal and pelvic ascites. S/P paracentesis where a total of 60 mL's of dark brown fluid was removed. . Probably secondary to pancreatitis. (4) Alcohol withdrawal: Managed with gabapentin protocol. Symptoms improved. (5) Alcoholism: Managed with gabapentin alcohol withdrawal protocol. Currently no signs of symptoms of alcohol withdrawal or DT Counseling on alcohol cessation Pt said that she will go to alcohol program outpatient (6) Sepsis: (7) Gram-positive cocci bacteremia: Developed signs / symptoms of possible sepsis on 08/27 in setting of pancreatitis and alcohol withdrawal. Blood and urine cultures obtained and pt received broad spectrum antibiotics. Urine culture grew E coli. 2 out of 2 blood cultures grew coag neg Staph. Transthoracic echo and transesophageal echo did not show any apparent valvular vegetations. Tenderness right antecubital fossa at IV or phlebotomy site- probable suppurative phlebitis. US RUE demonstrated superficial phlebitis. Check repeat blood culture today to confirm clearance of bacteremia. Previous hospitalist team discussed case with ID 14 day course of IV vancomycin recommended. Today is day # 14/ 14. No need for additional antibiotics after discharge if repeat blood culture 09/06 negative. Will complete course of abx today (8) UTI (urinary tract infection): E coli UTI. Completed course of TMP/sulfa. (9) Hypokalemia: K at time of admission 3.3. Hypokalemia probably secondary to emesis. K stable Monitor BMP (10) Anemia: Hgb as low as 10.5. Stable . (11) Thrombocytopenia: Possible related to alcohol hepatitis Platelet count as low as 71,000. Platelet count = 481,000. Resolved (12) Smoking: Nicotine patch. Counseling on smoking cessation (13) DVT prophylaxis: Continue Lovenox subq (14) Discharge planning issues: Anticipated discharge home tomorrow No need for outpatient antibiotics. Pt plans on outpatient counseling / support for alcoholism. Follow up with Dr. Perez on 09/12 Admission and Anticipated Discharge Date Admission Date: August 27, 2019 Subjective Pt seen and examined Sitting in bed with no distress Pt said that she feels fine She said that she has no ride to go home tonight after getting the abx dose because her friend is working until midnight She said that she will be able to get a ride in the morning Denies any chest pain, palpitation, dizziness and SOB Physical Exam Physical Exam: General- No acute distress Head- atraumatic Eyes- PERRL, EOMI, ENT- oropharynx clear Neck- supple, no JVD Lungs- clear to auscultation Heart- regular rhythm; no murmur Abdomen- normal bowel sounds, soft, nontender Extremities- no calf tenderness Neuro- alert, oriented x 3; PERRL, EOMI; no facial palsy; no dysarthria Skin- warm & dry Results & Data Results & Data ([facility]) Vital Signs (Past 12 Hours) Vital Signs Temp Pulse Resp BP Pulse Ox 09/10/19 15:26 36.7 C 65 18 111/71 96 09/10/19 07:46 37.1 C 88 16 94/54 L 98 (1) Acute alcoholic pancreatitis Acute pancreatitis complication: unspecified Qualified Code(s): K85.20 - Alcohol induced acute pancreatitis without necrosis or infection
[2019-09-10] MEDS: LORazepam 1 MG TAB PO PRN (22:16)
[2019-09-11] MEDS: HYDROmorphone INJ 0.5 MG/0.5 ML SYR IV PRN ×4 (01:25→16:05)
[2019-09-11] MEDS: ACETAMINOPHEN 500 MG TAB PO SCH ×2 (04:03→12:14)
[2019-09-11 07:15] LABS: Creatinine Clr Calc Pharmacy 119.2 ml/min; Est GFR (African American) 126.3
[2019-09-11] MEDS: POTASSIUM CHLORIDE 10 MEQ TABCR PO SCH ×2 (09:06→14:23)
[2019-09-11] MEDS: FOLIC ACID 1 MG TAB PO SCH (09:06)
[2019-09-11] MEDS: VENLAFAXINE HCL XR 150 MG CAPXR PO SCH (09:06)
[2019-09-11] MEDS: GABAPENTIN 100 MG CAP PO SCH ×2 (09:08→14:23)
[2019-09-11] MEDS: NICOTINE 21 MG/24 HR TDSY TD SCH (09:08)
[2019-09-11] MEDS: MULTIVITAMIN TAB PO SCH (09:08)
[2019-09-11] MEDS: POLYETHYLENE (MIRALAX) 17 GM PACK PO SCH ×2 (09:08→16:06)
[2019-09-11] MEDS: THIAMINE HCL 100 MG TAB PO SCH (09:09)
[2019-09-11] MEDS: BuPROPion SR 150 MG TABCR PO SCH (09:09)
[2019-09-11] MEDS: PANTOprazole 40 MG TAB PO SCH (09:09)
--- NOTE | 2019-09-11 16:41 | Discharge Summary ---
Date of Service September 11, 2019 Admission HPI Per Admitting Provider History obtained from patient and records. Medical history significant for mood disorder, history opioid abuse as per records, ongoing tobacco/alcohol abuse. Last confinement 2015 for vaginal delivery under [employer] service. 2 days history of burning epigastric pain with nausea and emesis. Mild constipation. No fever, no chills. No chest pain, no S OB. Admits to drinking alcohol heavily from time to time. 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 Admission Exam Per Admitting Provider GENERAL: uncomfortable, looks older than stated age, no respiratory distress SKIN: Normal color, warm HEENT: Galien palpebral conjunctivae, no ptosis, dry buccal mucosa NECK : Supple, no tenderness CHEST : CTA, no tenderness HEART : RRR, no obvious murmurs ABDOMEN: Some distention, patient refusing palpation secondary to pain EXTREMITIES : No LE swelling/tenderness, no other conspicuous deformities noted NEUROLOGIC : Coherent, no facial asymmetry, no other gross focality Principal Diagnosis Acute alcoholic pancreatitis: Elevated transaminase level: Ascites: Alcohol withdrawal: Alcohol abuse Sepsis: Gram-positive cocci bacteremia: UTI (urinary tract infection): Hypokalemia: Anemia: Thrombocytopenia: Tobacco abuse Discharge Exam General- No acute distress Head- atraumatic Eyes- PERRL, EOMI, ENT- oropharynx clear Neck- supple, no JVD Lungs- clear to auscultation Heart- regular rhythm; no murmur Abdomen- normal bowel sounds, soft, nontender Extremities- no calf tenderness Neuro- alert, oriented x 3; PERRL, EOMI; no facial palsy; no dysarthria Skin- warm & dry Discharge Data Allergies Allergy/AdvReac Type Severity Reaction Status Date / Time Penicillins Allergy Intermediate HIVES Verified 08/26/19 23:31 Consultations 08/26/19 23:31 ED Decision to Admit Stat 08/27/19 02:16 Consult Gastroenterology Routine 08/29/19 02:56 Consult Biofuels Production Technician Routine 08/31/19 10:37 Consult General Surgery Routine 09/02/19 08:59 Consult Cardiology Routine 09/03/19 11:21 Consult Anesthesiology Routine Procedures Performed Operation Date: 08/29/19 14:00 Actual Procedures p Endoscopic Retrograde Cholangiopancreatogram(Not Applicable) - Mae Shea MD Operation Date: 09/06/19 07:30 Actual Procedures p Echo Transesophageal - DO javier Wilde Echo Doppler Complete - DO javier Wilde Echo Color Flow - Mason Parker DO Ordered Studies 08/26/19 21:58 US gallbladder Urgent 08/27/19 09:26 MR MRCP Routine 08/28/19 06:56 CT angio chest PE protocol Urgent 08/28/19 06:57 CT abd pelvis IV con only Urgent 08/28/19 23:06 US point of care ultrasound Urgent 08/29/19 FL ERCP biliary ductal Routine 08/31/19 09:00 CT abd pelvis wo con Routine 09/01/19 15:41 US venous doppler UE RT Urgent US gallbladder CLINICAL HISTORY: Epigastric pain. COMPARISON STUDY: Right upper quadrant ultrasound February 02, 2017. FINDINGS: Hepatic echogenicity is increased. No hepatic lesions are identified. There is no biliary ductal dilatation. The common bile duct measures 4 mm in caliber. The gallbladder is normal. There are no gallstones. Pancreas is largely obscured. There is no right hydronephrosis. IMPRESSION: 1. No gallstones or biliary ductal dilatation. 2. Increased hepatic echogenicity suggestive of fatty infiltration. ACT 112: Negative or not required by law. Electronically signed by: Ronak Benavidez M.D. 08/27/2019 7:21 AM Dictated: 08/27/19719 Transcribed: 08/27/19719 KUB CLINICAL HISTORY: Upper abdominal pain. COMPARISON STUDY: KUB June 14, 2012. FINDINGS: Prominent gas-filled loops of small large bowel are noted. There is a [id number] amount stool within the colon. There is no evidence for a bowel obstruction. No calcifications are identified. Visualized skeletal structures are unremarkable. IMPRESSION: Prominent gas-filled loops of small large bowel without convincing evidence for a bowel obstruction. ACT 112: Negative or not required by law. Electronically signed by: Ronak Benavidez M.D. 08/27/2019 6:37 AM Dictated: 08/27/19635 Transcribed: 08/27/19635 MRCP CLINICAL HISTORY: acute pancreatitis, rule out gallstones TECHNIQUE: Utilizing a 1.5 Deborah magnet and dedicated coil, multiplanar, multiecho imaging of the upper abdomen was performed utilizing heavily T2 weighted pulsing sequences without IV contrast. COMPARISON STUDY: Right upper quadrant ultrasound August 26, 2019. FINDINGS: No intra or extra hepatic biliary ductal dilatation is identified. No common bile duct calculi are identified. No gallstones are identified. The gallbladder is not distended. There has been interval development of extensive upper abdominal fluid centered on the pancreas. The pancreas is edematous. Pancreatic necrosis cannot be assessed for on this unenhanced examination. There are no peripancreatic fluid collections. No hepatic lesions are identified. Fatty infiltration of the liver is better depicted on prior ultrasound. Unenhanced images of the spleen and adrenal glands as well as the kidneys are unremarkable. There is no hydronephrosis. The caliber of visualized small and large bowel is normal. IMPRESSION: 1. No biliary duct dilatation. No choledocholithiasis identified. No gallstones identified. 2. Interval development of extensive upper abdominal fluid centered on the pancreas. Edematous enlarged pancreas consistent with acute pancreatitis. No peripancreatic fluid collections. ACT 112: Negative or not required by law. Electronically signed by: Ronak Benavidez M.D. 08/27/2019 2:07 PM Dictated: 08/27/19 1358 Transcribed: 08/27/19 1358 XR chest 1V portable CLINICAL HISTORY: sob dyspnea COMPARISON STUDY: 02/02/2017 FINDINGS: Parenchymal infiltrate medial aspect left base. Lungs otherwise appear clear. Diaphragms are smooth. IMPRESSION: Infiltrate medial aspect left base. ACT 112: Negative or not required by law. The above report was generated using voice recognition software. It may contain grammatical, syntax or spelling errors. Electronically signed by: Nazario Condon M.D. 08/28/2019 7:03 AM Dictated: 08/28/19 0703 Transcribed: 08/28/[address] angio chest PE protocol CT DOSE: 690.78 mGy.cm HISTORY: Chest pain. Dyspnea. PE TECHNIQUE: Multiaxial CT images of the chest were performed following the intravenous administration of contrast to evaluate the pulmonary arteries. Maximal intensity projection images were also obtained. A dose lowering technique was utilized adhering to the principles of ALARA. COMPARISON STUDY: None. FINDINGS: There is a normal caliber thoracic aorta with no evidence for dissection. There is no evidence for pulmonary embolus. No pleural effusions. No pneumothorax. The liver and spleen are unremarkable. No mediastinal or hilar lymphadenopathy. The central airways are patent. The lungs are clear. Left pleural effusion. Infiltrate left base. Trace pleural fluid right lung base. IMPRESSION: 1. No evidence for pulmonary embolus. 2. Left and to a lesser extent right basilar infiltrative/atelectatic change. 3. Small left and to a lesser extent small right pleural effusion. ACT 112: Negative or not required by law. The above report was generated using voice recognition software. It may contain grammatical, syntax or spelling errors. Electronically signed by: Nazario Condon M.D. 08/28/2019 8:39 AM Dictated: 08/28/19836 Transcribed: 08/28/19836 CT abd pelvis IV con only CT DOSE: HISTORY: Pain abd pain TECHNIQUE: Multiaxial CT images of the abdomen and pelvis were performed following the use of intravenous contrast. A dose lowering technique was utilized adhering to the principles of ALARA. COMPARISON STUDY: MRCP 08/27/2019 FINDINGS: No significant additional inspiration compared to the prior MRCP. Fatty replacement of the liver. Upper abdominal ascites. Pancreatic edematous change with peripancreatic infiltrative change. No evidence for pseudocyst abscess or collection. Nonobstructive bowel pattern. Moderate ascitic fluid within the soft tissue pelvic and cul-de-sac regions. Uterus is midline. The bladder demonstrates complex fluid possibly combined with a small amount of air. Hemorrhagic cystitis is considered. IMPRESSION: 1. Findings consistent with acute pancreatitis with considerable peripancreatic infiltrative/edematous change.. 2. No evidence for abscess collection or pseudocyst. 3. Mild to moderate abdominal and pelvic ascites. 4. Diffuse fatty replacement of liver. 5. Complex fluid within the bladder combined with a small amount of air. The possibility of hemorrhagic cystitis is considered. Correlation with urinalysis is suggested. ACT 112: Negative or not required by law. The above report was generated using voice recognition software. It may contain grammatical, syntax or spelling errors. Electronically signed by: Nazario Condon M.D. 08/28/2019 8:46 AM Dictated: 08/28/19840 Transcribed: 08/28/19840 NTRAOPERATIVE RADIOGRAPHS CLINICAL HISTORY: ERCP. Fluoroscopy time: 645 seconds. FINDINGS: 12 spot fluoroscopic views of the right upper quadrant from an ERCP procedure are correlated with abdominal CT dated 08/28/2019. The initial images show contrast opacification of the common bile duct. There is no intra or extrahepatic biliary ductal dilatation. No filling defects identified in the common bile duct to suggest choledocholithiasis. There is contrast opacification of the gallbladder. Additional images show contrast opacification of the pancreatic duct which is patent. Question focal stricturing of the pancreatic duct near the pancreatic head. No intraluminal filling defects are identified. Suspect contrast leakage from the pancreatic duct in the head/neck region. IMPRESSION: Intraoperative ERCP images as above. See operative report for detailed findings. Electronically signed by: Felice Amato M.D. 08/29/2019 6:47 PM Dictated: 08/29/191841 Transcribed: 08/29/191841 SINGLE VIEW CHEST CLINICAL HISTORY: PICC placement. FINDINGS: 2 AP, portable, upright chest radiographs are compared to study dated 08/28/2019. A left-sided PICC line is been placed. The tip projects over the SVC. The cardiomediastinal silhouette is unremarkable. There are low lung volumes. There are left larger than right pleural effusions with associated left basilar consolidation. No pneumothorax is seen. The bony thorax is grossly intact. IMPRESSION: 1. A left-sided PICC line has been placed as above. 2. Left larger right pleural effusions with left basilar consolidation. Pleural effusions have modestly increased from 08/28/2019. ACT 112: Negative or not required by law. Electronically signed by: Felice Amato M.D. 08/29/2019 11:45 AM Dictated: 08/29/19 1143 Transcribed: 08/29/19 1143 DICTATED BY: Mae Shea M.D. Patient Name: Ana Wooten Procedure Date: 08/29/2019 2:53 PM Date of : 1985 Admit Type: Inpatient Age: 34 Gender: Female Attending MD: Mae Shea MD Procedure: ERCP Providers: Mae Shea MD Referring MD: Rosalinda Mckeon Do Indications: Pancreatic duct leak Medicines: General Anesthesia Complications: No immediate complications. Estimated Blood Loss: Estimated blood loss: none. Procedure: Pre-Anesthesia Assessment: - Prior to the procedure, a History and Physical was performed, and patient medications, allergies and sensitivities were reviewed. The patient's tolerance of previous anesthesia was reviewed. - The risks and benefits of the procedure and the sedation options and risks were discussed with the patient. All questions were answered and informed consent was obtained. - Patient identification and proposed procedure were verified prior to the procedure by the physician and the nurse. The procedure was verified in the procedure room. - Pre-procedure physical examination revealed no contraindications to sedation. After obtaining informed consent, the scope was passed under direct vision. Throughout the procedure, the patient's blood pressure, pulse, and oxygen saturations were monitored continuously. The Scope was introduced through the mouth, and advanced to the duodenum and used to inject contrast into the bile duct and ventral pancreatic duct. The patient tolerated the procedure well. The ERCP was technically difficult and complex due to difficulty passing guidewires through pancreatic ductal stenosis. Findings: The legal research analyst film was normal. The esophagus was successfully intubated under direct vision. The scope was advanced to a normal major papilla in the descending duodenum without detailed examination of the pharynx, larynx and associated structures, and upper GI tract. The upper GI tract was grossly normal. The major papilla and the entire second portion of the duodenum was edematous. A 0.035 inch angled standard wire was passed into the biliary tree. The Fusion OMNI sphincterotome was passed over the guidewire and the bile duct was then deeply cannulated. Contrast was injected. I personally interpreted the bile duct images. Ductal flow of contrast was adequate. Image quality was adequate. Contrast extended to the main bile duct. The intra-hepatic and extra-hepatic biliary duct system was normal. A 0.035 inch angled standard wire was passed into the ventral pancreatic duct. The ventral pancreatic duct was then deeply cannulated with the short-nosed traction sphincterotome and glidewire. Contrast was injected. A single stenosis with partial disruption with slight leak of contrast was found in the ventral pancreatic duct in the head/ neck area of the pancreas. The pancreatic duct in the body and tail of the pancreas was slightly dilated. Ventral pancreatic sphincterotomy was made with a monofilament traction (standard) sphincterotome using ERBE electrocautery. There was no post-sphincterotomy bleeding. Dilation of the main pancreatic duct with a 4 mm balloon and 5-7-10 Fr catheter dilator was attempted but was unsuccessful as none of the instruments would pass through the area of the disruption due to significant stenosis. One 5 Fr by 9 cm plastic pancreatic stent with a single external pigtail and a single internal flap was placed only around 4 cm into the ventral pancreatic duct and could not bridge the area of disruption. Clear fluid flowed through the stent. Indomethacin 100 mg was given via suppository to decrease the risk of post-ERCP pancreatitis (PEP). 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 - A pancreatic sphincterotomy was performed to decrease intraductal pressure. Recommendation: - [facility]. - Start IV Octreotide. - Continue IV hydration. - Monitor clinical response and signs of reaccumulation of ascites, consider LVP if needed. - Repeat CT scan in 4 weeks and then ERCP for stent removal. Mae Shea MD 08/29/2019 7:00:07 PM This report has been signed electronically. Note Initiated On: 08/29/2019 2:53 PM Number of Addenda: 0 I attest to the content of the Intraoperative Record and orders documented therein, exceptions below {[id number]} Signed By:{f rep sign date/time1] Created/Dictated: 08/29/19 1453 Transcribed: 08/29/19 [address] WITHOUT CONTRAST CT DOSE: 431.40 mGy.cm HISTORY: Generalized abdominal pain. r/o nephrolithiasis TECHNIQUE: Multiaxial CT images of the abdomen and pelvis were performed without contrast. A dose lowering technique was utilized adhering to the principles of ALARA. COMPARISON STUDY: Abdomen and pelvis CT 08/28/2019. FINDINGS: Small bilateral pleural effusions, left greater than right which have slightly increased in size. Bilateral lower lobe consolidation favors compressive atelectasis from the pleural effusions. No pneumoperitoneum. No pneumatosis. No suspicious lytic are blastic osseous lesions. Trace pericardial effusion. Moderate body wall edema which has progressed. Small amount of ascites has slightly improved. Hepatic steatosis is again noted. Contrast within the gallbladder is likely due to vicarious excretion from the prior CT examination. Interval placement of the main pancreatic duct stent which appears to be in good position. Peripancreatic edema persists and is consistent with acute pancreatitis. The unenhanced spleen, adrenal glands, and kidneys are unremarkable. No renal or ureteral stones. No hydronephrosis. No retroperitoneal lymphadenopathy. Normal caliber abdominal aorta. The bladder is decompressed and not well visualized. The uterus and bilateral adnexa are unremarkable. Mildly distended gas and fluid-filled loops of large and small bowel. No definite transition point identified. Therefore, this favors an ileus. No definite bowel wall thickening or obstruction. There are suboptimal evaluation for bowel pathology due to the lack of intravenous and oral contrast. IMPRESSION: 1. Interval progression of the small bilateral pleural effusions and moderate body wall edema. 2. Slight improvement in the small amount of ascites. 3. Bilateral lower lobe consolidation favors compressive atelectasis from the pleural effusions. A pneumonia could also have a similar appearance. 4. Peripancreatic edema persists and is consistent with acute pancreatitis. This is not significantly changed. The main pancreatic duct stent appears in good position. 5. Mildly distended gas and fluid-filled loops of large and small bowel. This favors an ileus. A partial small bowel obstruction could also have a similar appearance but is considered less likely given the lack of a clear transition point. 6. Additional findings as described above. ACT 112: Negative or not required by law. Electronically signed by: Marcellus Ochoa M.D. 08/31/2019 10:25 AM Dictated: 08/31/19 1017 Transcribed: 08/31/19 1017 ULTRASOUND RIGHT UPPER EXTREMITY VENOUS CLINICAL HISTORY: Right arm pain. Swelling and erythema status post line removal. COMPARISON STUDY: No priors.. TECHNIQUE: Real-time, grayscale, and color Doppler sonography of the deep veins of the right upper extremity is performed. Compression and augmentation were utilized. FINDINGS: There is no sonographic evidence of deep venous thrombosis identified in the right upper extremity. The right internal jugular, axillary, and brachial veins are patent and normally compressible. Normal venous waveforms and augmentation are seen within the right subclavian vein. The basilic vein is clear. There is a long segment of nearly occlusive to occlusive superficial venous thrombus within the right cephalic vein in the mid to distal upper extremity. This extends approximately 10 cm in length. The visualized radial and ulnar veins are patent. IMPRESSION: 1. There is no sonographic evidence of deep venous thrombosis identified in the right upper extremity. 2. There is a long segment of nearly occlusive to occlusive superficial venous thrombus in the cephalic vein as above. ACT 112: Negative or not required by law. Electronically signed by: Felice Amato M.D. 09/01/2019 5:30 PM Dictated: 09/01/191721 Transcribed: 09/01/19 172 Hospital Course (1) Acute alcoholic pancreatitis: Present on admission with abdominal pain associated with nausea and vomiting Li[ase on admission 7867 Received IVF Fluid GI consulted. Gallbladder U/S showed no gallstones or biliary ductal dilatation. MRCP showed Interval development of extensive upper abdominal fluid centered on the pancreas. No apparent biliary tract obstruction per US and MRCP. ERCP with pancreatic stent placement performed. GI recommended to repeat the CT in 4 weeks with subsequent ERCP for stent removal. Will need to follow up with Gastro Resolved (2) Elevated transaminase level: Probably secondary to alcoholic hepatitis. ALT 139 and AST 145 on admission Resolved (3) Ascites: CT showed mild to moderate abdominal and pelvic ascites. S/P paracentesis where a total of 60 mL's of dark brown fluid was removed. . Probably secondary to pancreatitis. (4) Alcohol withdrawal: Managed with gabapentin protocol. Symptoms improved. (5) Alcoholism: Managed with gabapentin alcohol withdrawal protocol. Currently no signs of symptoms of alcohol withdrawal or DT Counseling on alcohol cessation Pt said that she will go to alcohol program outpatient (6) Sepsis: Developed signs / symptoms of possible sepsis on 08/27 in setting of pancreatitis and alcohol withdrawal. Blood and urine cultures obtained and pt received broad spectrum antibiotics. Urine culture grew E coli. 2 out of 2 blood cultures grew coag neg Staph. Transthoracic echo and transesophageal echo did not show any apparent valvular vegetations. Tenderness right antecubital fossa at IV or phlebotomy site- probable suppurative phlebitis. US RUE demonstrated superficial phlebitis. Currently receiving IV vanco. Afebrile. CRP 26.60 --> 1.40. Check repeat blood culture today to confirm clearance of bacteremia. Reviewed case with ID. 14 day course of IV vancomycin recommended. Today is day # 11 / 14. No need for additional antibiotics after discharge if repeat blood culture 09/06 negative. (7) Gram-positive cocci bacteremia: Developed signs / symptoms of possible sepsis on 08/27 in setting of pancreatitis and alcohol withdrawal. Blood and urine cultures obtained and pt received broad spectrum antibiotics. Urine culture grew E coli. 2 out of 2 blood cultures grew coag neg Staph. Transthoracic echo and transesophageal echo did not show any apparent valvular vegetations. Tenderness right antecubital fossa at IV or phlebotomy site- probable suppurative phlebitis. US RUE demonstrated superficial phlebitis. Check repeat blood culture today to confirm clearance of bacteremia. Previous hospitalist team discussed case with ID 14 day course of IV vancomycin recommended. Completed 14 days course of IV Vanco . No need for additional antibiotics after discharge if repeat blood culture 09/06 negative. (8) UTI (urinary tract infection): E coli UTI. Completed course of TMP/sulfa. (9) Hypokalemia: K at time of admission 3.3. Hypokalemia probably secondary to emesis. K 3.9 stable Continue K supplement Pt was advised to increase K supplement in diet Check BMP in 1 week (10) Anemia: Hgb as low as 10.5. Stable . (11) Thrombocytopenia: Possible related to alcohol hepatitis Platelet count as low as 71,000. Platelet count = 481,000. Resolved (12) Smoking: Nicotine patch. Counseling on smoking cessation (13) DVT prophylaxis: Continue Lovenox subq (14) Discharge planning issues: Anticipated discharge home today Pt plans on outpatient counseling / support for alcoholism. Follow up with Dr. Perez on 09/12 Total Time Total Time Spent Total Time Spent (In Minutes): 35 minutes Total Time Includes: Examination of the Patient, Discharge Planning, Medication Reconciliation, Communication With Other Providers and Other Discharge Plan Discharge Items Patient Disposition: Home - Self-Care Reason For Visit: PANCREATITIS Discharge Diagnosis: Acute alcoholic pancreatitis: Elevated transaminase level: Ascites: Alcohol withdrawal: Alcohol abuse Sepsis: Gram-positive cocci bacteremia: UTI (urinary tract infection): Hypokalemia: Anemia: Thrombocytopenia: Tobacco abuse Activity: Resume your previous activity Non-emergency contact: Primary Care Provider and Nursing Consultant Call non-emergency contact if: you have any medication questions Follow-up/Referrals: Nazario Perez MD [Primary Care Provider] - 09/13/19 3:10 pm (09/13/2019 3:10 PM Provider Nazario Perez MD [facility] ) Diet: Regular Addtl Attending Provider Instructions: Follow up with your primary care provider Dr. Perez on 09/12 @ 3:10 PM Follow up with alcohol rehab program (Please call to arrange for it) Follow up with Gastroenterology to arrange for the stent removal in 3 to 4 weeks Your physician will schedule you for a repeat CT abdomen in 3 to 4 weeks Counseling on smoking and alcohol cessation Check BMP in 1 week to monitor your electrolytes level Do not drive or work on any machine after taking the narcotic Please hold next dose if you become drowsy and lethargy Pending Studies at Discharge: No Stand-Alone Forms: My [facility], Smoking Cessation Medications and DC Order Prescriptions: New thiamine HCl (vitamin B1) [Vitamin B-1] 100 mg Tablet 100 mg PO QAM 30 Days Qty: 30 RF: 0 pantoprazole 40 mg Tablet,Delayed Release (Dr/Ec) 40 mg PO DAILY 30 Days Qty: 30 RF: 0 folic acid 1 mg Tablet 1 mg PO QAM 30 Days Qty: 30 RF: 0 potassium chloride [Klor-Con M10] 10 mEq Tablet,Er Particles/Crystals 10 meq PO DAILY 30 Days Qty: 30 RF: 0 tramadol 50 mg tablet 50 mg PO Q8H PRN (Reason: pain) Qty: 6 RF: 0 Continued bupropion HCl [Wellbutrin SR] 150 mg tablet sustained-release 12 hr 300 mg PO DAILY RF: 0 venlafaxine 150 mg capsule,extended release 24hr 300 mg PO DAILY RF: 0 gabapentin 100 mg capsule 100 mg PO TID 30 Days Qty: 90 RF: 0 Discharge Orders: Discharge Order (Routine); Ordered 09/11/19 Ordered By: Mary West/Other Patient Handouts: Alcoholism Resources, Alcoholism: Getting Help, Alcohol Addiction, Staying Smoke-Free Admission Data Admit Date/Time: 08/27/19 00:55 Attending Provider: Mary Herrera Admit Provider: Juan Miguel Velasquez Primary Care Provider: Nazario Perez Other Providers: Juan Miguel Velasquez ; Candis Villatoro ; Lyly Myers ; Alberta Wilson ; Marissa Camacho ; Kaiser Broderick ; Jean Pierre Restrepo ; James Chen ; Hoda Sandoval ; Pepe Hui ; Bruno Reyes ; Christina Garcia ; Bel Arz[place] ; Barb Gallo ; France Hu ; Mae Shea ; Catrachita Negro ; Gaviota Watson ; Rosalinda Mckeon ; Jose Juan Christensen ; Parish Hadley ; Braydon Sanches
== END 2019-09-11 16:58 | disposition home or self-care (01) | DRG 853 ==
LOC: ED 21:09 → SUATTDRO 08-27 00:55 → 2W 08-27 00:55 → 2S 08-28 11:55 → 1E 08-28 13:28 → 2N 08-30 17:45 → 3N 09-01 00:11

== ENCOUNTER 2019-12-19 12:45 | Observation (INO) ==
[2019-12-19] MEDS ORDERED: LORazepam 1 MG/2 ML VIAL IV STA ×3 (12:54→20:41)
[2019-12-19] MEDS ORDERED: MULTI-VITAMIN INFUSION 10 ML, THIAMINE HCL 100 MG, FOLIC ACID 1 MG in SODIUM CHLORIDE 0... IV ONE (12:54)
--- NOTE | 2019-12-19 13:21 | XRay Report ---
SINGLE VIEW CHEST CLINICAL HISTORY: Fall. FINDINGS: An AP, portable, upright chest radiograph is compared to study dated 10/03/2019. The cardiom ediastinal silhouette is unremarkable. The lungs and pleural spaces are clear. No pneumothorax is see n. Nipple shadows project over the lung bases. The bony thorax is grossly intact. IMPRESSION: No active disease in the chest. ACT 112: Negative or not required by law. Electronically signed by: Felice Amato M.D. 12/19/2019 1:19 PM
[2019-12-19 13:22] LABS: Hematocrit (blood only) 38.2 % (37-47); Hemoglobin 13.3 g/dL (12.0-16.0); Mean Corpuscular Hemoglobin 33.4 pg (25-34); Mean Corpuscular Hgb Conc 34.8 g/dL (32-36); RDW Coefficient of Variation 12.4 % (11.5-14.5); RDW Standard Deviation 43.3 fL (36.4-46.3); Red Blood Count 3.98 M/uL (4.2-5.4); White Blood Count 8.67 K/uL (4.8-10.8)
[2019-12-19 13:25] LABS: pH VBG 7.42 (7.36-7.41)
[2019-12-19 13:32] LABS: INR 1.2 (0.9-1.1); Partial Thromboplastin Ratio 1.1; Partial Thromboplastin Time 31.1 Seconds (21.0-31.0); Prothrombin Time 12.2 Seconds (9.0-12.0)
[2019-12-19 13:39] LABS: Alanine Aminotransferase 50 U/L (12-78); Albumin Level 2.5 gm/dl (3.4-5.0); Aspartate Aminotransferase 207 U/L (15-37); BUN Creatinine Ratio 8.3 (10-20); Blood Urea Nitrogen 7 mg/dl (7-18); Calcium 8.3 mg/dl (8.5-10.1); Carbon Dioxide 25 mmol/L (21-32); Chloride 97 mmol/L (98-107); Creatinine Clr Calc Pharmacy 99.4 ml/min; Est GFR (African American) 114.8; Est GFR (Non-African American) 99.1; Glucose 132 mg/dl (70-99); Potassium 3.2 mmol/L (3.5-5.1); Sodium 137 mmol/L (136-145)
[2019-12-19 13:41] LABS: Acetaminophen < 2 ug/ml (10-30); Salicylate < 1.7 mg/dl (2.8-20)
[2019-12-19 13:44] LABS: Albumin Globulin Ratio 0.5 (0.9-2); Alkaline Phosphatase 392 U/L (45-117); Bilirubin,Total 1.5 mg/dl (0.2-1); Creatine Kinase 66 U/L (26-192); Globulin 4.6 gm/dl (2.5-4.0); Magnesium 1.6 mg/dl (1.8-2.4); Total Protein 7.1 gm/dl (6.4-8.2); Troponin I < 0.015 ng/ml (0-0.045)
[2019-12-19 13:51] LABS: Pregnancy Test, Serum Negative (Negative)
[2019-12-19] MEDS ORDERED: LACTATED RINGER'S 1,000 ML IV ONE (13:54)
[2019-12-19 14:10] LABS: Immature Granulocytes # (auto) 0.02 K/uL (0.00-0.02); Immature Granulocytes % (auto) 0.2 %; Lymphocytes # (auto) 0.47 K/uL (1.2-3.4); Lymphocytes % (auto) 5.5 %; Mean Platelet Volume 8.8 fL (7.4-10.4); Monocytes # (auto) 0.86 K/uL (0.11-0.59); Neutrophils # (auto) 7.25 K/uL (1.4-6.5); Neutrophils % (auto) 84.3 %; Platelet Count 89 K/uL (130-400); Platelet Estimate Decreased (Normal)
--- NOTE | 2019-12-19 14:45 | Emergency Department Note ---
Impression & Plan Alcoholism, Alcohol withdrawal, Hypomagnesemia, Alcohol related seizure ED Provider Note NAME: SUDHEER ALMARAZ AGE: 34 SEX: F : 1985 ARRIVES VIA: Ambulance INFORMANT: Patient, additional history is obtained from the prehospital person gris as well as the patient's family ED PROVIDER(S): Pepe Molina DO CHIEF COMPLAINT: Altered mental status HPI: The patient is a 34-year-old female who presented to the emergency department for an evaluation after having an altered mental status. The patient may have had a seizure. She was found on the floor in her home. She was postictal initially. She presented with EMS but also family members have arrived and they are very concerned because they feel the patient may have taken an overdose of some of her prescription medication. She had a prescription for hydroxyzine filled 3 days ago for 90 tablets and it is now empty. She does have a history of chronic alcoholism. Upon arrival to the emergency department the patient is complaining of generalized shakiness. She states she is not had any alcohol in over 24 hours. She does normally drink vodka almost daily. The lanette ent has been to our facility before for chronic alcoholism. She denies any headache at this time. She denies having any suicidal or homicidal ideation. She denies that there was any overdose attempt. The patient states that she has been compliant with her outpatient medications. ROS: See above HPI for pertinent positives & negatives. A total of 10 systems reviewed and were otherwise negative. PAST MEDICAL HISTORY: See Below PAST SURGICAL HISTORY: See Below FAMILY HISTORY: See Below SOCIAL HISTORY: See Below HOME MEDICATIONS: See Below ALLERGIES: See Below VITALS: See Below PHYSICAL EXAMINATION: GENERAL: The patient is awake alert. She is somewhat anxious appearing and appears to be uncomfortable. EYES: The conjunctivae are clear. The pupils are round and reactive. EARS, NOSE, MOUTH AND THROAT: The nose is without any evidence of any deformity. Mucous membranes are dry. NECK: The neck is nontender and supple. RESPIRATORY: Normal respiratory effort is noted there is no evidence of wheezing rhonchi or rales CARDIOVASCULAR: Tachycardic rate with regular rhythm was noted. There is no definite murmur. GASTROINTESTINAL: The abdomen is soft. Abdomen is nontender. MUSCULOSKELETAL/EXTREMITIES: There is no evidence of gross deformity full range of motion is noted in the hips and shoulders. SKIN: There is no obvious evidence of any rash. Skin is warm and dry. Trace pedal edema was noted bilaterally. NEUROLOGIC: Patient is awake alert and oriented x3 strength is symmetric patellar reflexes are 3+ bilaterally. The patient is very tremulous and has a resting tremor noted. PSYCH: The patient is awake. She is alert. She makes very poor eye contact. Her affect is very flat. She is currently denying any suicidal homicidal ideation. MEDICAL DECISION MAKING: The patient is a 34-year-old female who presented to the emergency department for an evaluation of altered mental status. I do think the patient must of had an alcohol-related seizure. She admits to stopping drinking alcohol recently. There is concern because the patient had taken her to hydroxyzine inappropriately but she denies any suicidal ideation. The patient was treated with IV fluids banana bag IV magnesium as well as IV Ativan in the emergency department. She was reevaluated multiple times. I discussed the patient's laboratory and radiographic studies with her. She appears to have early signs of withdrawal and I am very concerned that she may progress into formal withdrawal. This reason I discussed her case with the on-call [facility] hospitalist. They have agreed to evaluate the patient in the emergency department for further management and disposition. Triage Nursing notes reviewed. Prior medical records reviewed Vital Signs: reviewed and remarkable for tachycardia Differential diagnosis: Epilepsy, infection, hypoglycemia, electrolyte abnormalities, cardiac sources, intracerebral event, trauma, toxicologic, neurologic, syncope, as well as other pathologies. ER treatment provided: See below Diagnostics interpreted by me: ECG: EKG was obtained in the emergency department. My interpretation is sinus tachycardia at 111 bpm. There is no ectopy. There is no acute ST segment abnormalities noted. Inferior T wave abnormalities were noted. This was compared to a tracing from October 022010. No significant changes were noted. Cardiac Monitoring: An order was placed for continuous cardiac monitoring. The monitor shows a rate of 110 bpm with sinus tachycardia rhythm. Laboratory studies: As stated above and show below. Imaging studies: See below Consultation(s): 1525: I discussed this case with Dr. Sales. Past Med/Surg History Medical History Alcoholism No significant active problems Surgical History S/P appendectomy S/P ERCP Social History Smoking Status: Current every day smoker Second Hand Exposure: Yes; Hx Alcohol Use: Yes Alcohol type: wine Hx Substance Use: No Preferred Language: Romanian Communication Ability: Effective Endoscopy Rn Required: No Beliefs That Will Affect Care: None marital status: Single Current Living Situation: Alone Feels Safe at Home: Yes Assistive Devices: Contacts, Denture - Upper and Denture - Lower Allergies Allergies Allergy/AdvReac Type Severity Reaction Status Date / Time Penicillins Allergy Intermediate HIVES Verified 12/19/19 13:53 Home Meds Home Medications Medication Instructions Recorded Confirmed bupropion HCl [Wellbutrin SR] 300 mg PO DAILY 08/26/19 12/19/19 venlafaxine 300 mg PO DAILY 09/03/19 12/19/19 hydroxyzine pamoate [Vistaril] 50 mg PO TID 12/19/19 12/19/19 Previous Rx's Medication Instructions Recorded gabapentin 100 mg PO TID 30 Days #90 cap 09/11/19 Results & Data (ED) Vital Signs Vital Signs - 24 hr 12/19/19 12:55 12/19/19 12:59 12/19/19 13:00 Temperature Temperature Source Pulse Rate 117 H 119 H 114 H Pulse Rate [Apical] Pulse Rate from SpO2 Sensor 117 H 118 H 114 H Pulse Rhythm [Apical] Respiratory Rate 15 14 18 Respiratory Effort / Characteristics Respiratory Depth Respiratory Pattern Blood Pressure 122/89 125/92 Blood Pressure [Right Arm] Blood Pressure Mean 94 109 Blood Pressure Mean [Right Arm] Pulse Oximetry 100 99 99 Oxygen Delivery Method Sepsis Recent Fever Within 48 Hours Sepsis New/Unexplained Change in Mental Status Sepsis Action Taken by Nursing 12/19/19 13:07 12/19/19 13:30 12/19/19 15:11 Temperature 36.5 C Temperature Source Oral Pulse Rate 122 H 114 H Pulse Rate [Apical] 109 H Pulse Rate from SpO2 Sensor 117 H Pulse Rhythm [Apical] Regular Respiratory Rate 20 17 20 Respiratory Effort / Characteristics Non-Labored Spontaneous Non-Labored Respiratory Depth Normal Normal Respiratory Pattern Regular Blood Pressure 136/96 130/87 Blood Pressure [Right Arm] 100/73 Blood Pressure Mean 109 120 Blood Pressure Mean [Right Arm] 82 Pulse Oximetry 98 100 97 Oxygen Delivery Method Room Air Room Air Sepsis Recent Fever Within 48 Hours No Sepsis New/Unexplained Change in Mental Status No Sepsis Action Taken by Nursing No Action Required Home Medications Current Medication List: was personally reviewed by me Laboratory Data Attestation: I reviewed the patient's lab results. Result diagrams: 12/19/19 13:02 12/19/19 13:02 Lab Results 12/19/19 12/19/19 12/19/19 Range/Units 13:02 13:02 13:02 WBC 8.67 (4.8-10.8) K/uL RBC 3.98 L (4.2-5.4) M/uL Hgb 13.3 (12.0-16.0) g/dL Hct 38.2 (37-47) % MCV 96.0 (80-100) fL MCH 33.4 (25-34) pg MCHC 34.8 (32-36) g/dL RDW Std Deviation 43.3 (36.4-46.3) fL RDW Coeff of Meme 12.4 (11.5-14.5) % Plt Count 89 L (130-400) K/uL MPV 8.8 (7.4-10.4) fL Immature Gran % (Auto) 0.2 % Neut % (Auto) 84.3 % Lymph % (Auto) 5.5 % [place] % (Auto) 10.0 % Eos % (Auto) 0.0 % Baso % (Auto) 0.0 % Neut # (Auto) 7.25 H (1.4-6.5) K/uL Lymph # (Auto) 0.47 L (1.2-3.4) K/uL [place] # (Auto) 0.86 H (0.11-0.59) K/uL Eos # (Auto) 0.00 (0-0.5) K/uL Baso # (Auto) 0.00 (0-0.2) K/uL Immature Gran # (Auto) 0.02 (0.00-0.02) K/uL Platelet Estimate Decreased L (Normal) PT 12.2 H (9.0-12.0) Seconds INR 1.2 H (0.9-1.1) APTT 31.1 H (21.0-31.0) Seconds PTT Ratio 1.1 VBG pH (7.36-7.41) VBG pCO2 (38-50) mmHg VBG pO2 mmHg VBG HCO3 mmol/L VBG O2 Saturation % VBG Base Excess mEq/L Barometric Pressure mm/Hg Sodium (136-145) mmol/L Potassium (3.5-5.1) mmol/L Chloride (98-107) mmol/L Carbon Dioxide (21-32) mmol/L Anion Gap (3-11) BUN (7-18) mg/dl Creatinine (0.6-1.2) mg/dl Est Cr Clr Drug Dosing ml/min Est GFR ( Amer) Est GFR (Non-Af Amer) BUN/Creatinine Ratio (10-20) Glucose (70-99) mg/dl Lactate 8.2 H* (0.4-2.0) mmol/L Calcium (8.5-10.1) mg/dl Magnesium (1.8-2.4) mg/dl Total Bilirubin (0.2-1) mg/dl AST (15-37) U/L ALT (12-78) U/L Alkaline Phosphatase (45-117) U/L Ammonia (11-32) umol/L Total Creatine Kinase (26-192) U/L Troponin I (0-0.045) ng/ml Total Protein (6.4-8.2) gm/dl Albumin (3.4-5.0) gm/dl Globulin (2.5-4.0) gm/dl Albumin/Globulin Ratio (0.9-2) HCG, Qual (Negative) Salicylates (2.8-20) mg/dl Acetaminophen (10-30) ug/ml Ethyl Alcohol mg/dL (0-3) mg/dl 12/19/19 12/19/19 12/19/19 Range/Units 13:02 13:02 13:02 WBC (4.8-10.8) K/uL RBC (4.2-5.4) M/uL Hgb (12.0-16.0) g/dL Hct (37-47) % MCV (80-100) fL MCH (25-34) pg MCHC (32-36) g/dL RDW Std Deviation (36.4-46.3) fL RDW Coeff of Meme (11.5-14.5) % Plt Count (130-400) K/uL MPV (7.4-10.4) fL Immature Gran % (Auto) % Neut % (Auto) % Lymph % (Auto) % [place] % (Auto) % Eos % (Auto) % Baso % (Auto) % Neut # (Auto) (1.4-6.5) K/uL Lymph # (Auto) (1.2-3.4) K/uL [place] # (Auto) (0.11-0.59) K/uL Eos # (Auto) (0-0.5) K/uL Baso # (Auto) (0-0.2) K/uL Immature Gran # (Auto) (0.00-0.02) K/uL Platelet Estimate (Normal) PT (9.0-12.0) Seconds INR (0.9-1.1) APTT (21.0-31.0) Seconds PTT Ratio VBG pH (7.36-7.41) VBG pCO2 (38-50) mmHg VBG pO2 mmHg VBG HCO3 mmol/L VBG O2 Saturation % VBG Base Excess mEq/L Barometric Pressure mm/Hg Sodium 137 (136-145) mmol/L Potassium 3.2 L (3.5-5.1) mmol/L Chloride 97 L (98-107) mmol/L Carbon Dioxide 25 (21-32) mmol/L Anion Gap 15.0 H (3-11) BUN 7 (7-18) mg/dl Creatinine 0.79 (0.6-1.2) mg/dl Est Cr Clr Drug Dosing 99.4 ml/min Est GFR ( Amer) 114.8 Est GFR (Non-Af Amer) 99.1 BUN/Creatinine Ratio 8.3 L (10-20) Glucose 132 H (70-99) mg/dl Lactate (0.4-2.0) mmol/L Calcium 8.3 L (8.5-10.1) mg/dl Magnesium 1.6 L (1.8-2.4) mg/dl Total Bilirubin 1.5 H (0.2-1) mg/dl AST 207 H (15-37) U/L ALT 50 (12-78) U/L Alkaline Phosphatase 392 H (45-117) U/L Ammonia < 10.0 L (11-32) umol/L Total Creatine Kinase 66 (26-192) U/L Troponin I < 0.015 (0-0.045) ng/ml Total Protein 7.1 (6.4-8.2) gm/dl Albumin 2.5 L (3.4-5.0) gm/dl Globulin 4.6 H (2.5-4.0) gm/dl Albumin/Globulin Ratio 0.5 L (0.9-2) HCG, Qual (Negative) Salicylates < 1.7 L (2.8-20) mg/dl Acetaminophen < 2 L (10-30) ug/ml Ethyl Alcohol mg/dL (0-3) mg/dl 12/19/19 12/19/19 12/19/19 Range/Units 13:02 13:02 13:02 WBC (4.8-10.8) K/uL RBC (4.2-5.4) M/uL Hgb (12.0-16.0) g/dL Hct (37-47) % MCV (80-100) fL MCH (25-34) pg MCHC (32-36) g/dL RDW Std Deviation (36.4-46.3) fL RDW Coeff of Meme (11.5-14.5) % Plt Count (130-400) K/uL MPV (7.4-10.4) fL Immature Gran % (Auto) % Neut % (Auto) % Lymph % (Auto) % [place] % (Auto) % Eos % (Auto) % Baso % (Auto) % Neut # (Auto) (1.4-6.5) K/uL Lymph # (Auto) (1.2-3.4) K/uL [place] # (Auto) (0.11-0.59) K/uL Eos # (Auto) (0-0.5) K/uL Baso # (Auto) (0-0.2) K/uL Immature Gran # (Auto) (0.00-0.02) K/uL Platelet Estimate (Normal) PT (9.0-12.0) Seconds INR (0.9-1.1) APTT (21.0-31.0) Seconds PTT Ratio VBG pH 7.42 H (7.36-7.41) VBG pCO2 38 (38-50) mmHg VBG pO2 38 mmHg VBG HCO3 24 mmol/L VBG O2 Saturation 70.0 % VBG Base Excess 0 mEq/L Barometric Pressure 733.2 mm/Hg Sodium (136-145) mmol/L Potassium (3.5-5.1) mmol/L Chloride (98-107) mmol/L Carbon Dioxide (21-32) mmol/L Anion Gap (3-11) BUN (7-18) mg/dl Creatinine (0.6-1.2) mg/dl Est Cr Clr Drug Dosing ml/min Est GFR ( Amer) Est GFR (Non-Af Amer) BUN/Creatinine Ratio (10-20) Glucose (70-99) mg/dl Lactate (0.4-2.0) mmol/L Calcium (8.5-10.1) mg/dl Magnesium (1.8-2.4) mg/dl Total Bilirubin (0.2-1) mg/dl AST (15-37) U/L ALT (12-78) U/L Alkaline Phosphatase (45-117) U/L Ammonia (11-32) umol/L Total Creatine Kinase (26-192) U/L Troponin I (0-0.045) ng/ml Total Protein (6.4-8.2) gm/dl Albumin (3.4-5.0) gm/dl Globulin (2.5-4.0) gm/dl Albumin/Globulin Ratio (0.9-2) HCG, Qual Negative (Negative) Salicylates (2.8-20) mg/dl Acetaminophen (10-30) ug/ml Ethyl Alcohol mg/dL 32.0 H (0-3) mg/dl Administered Medications Magnesium Sulfate/Dextrose (Magnesium Sulfate / D5w) 1 gm in 100 mls @ 100 mls/hr IV Q1H LINDSAY Stop: 12/19/19 15:53 Last Admin: 12/19/19 15:08 Dose: 100 mls/hr Documented by: [id number] Discontinued Medications Multivitamins 10 ml/ Thiamine HCl 100 mg/ Folic Acid 1 mg/Sodium Chloride 1,011.2 mls @ 1,011.2 mls/hr IV .Q1H ONE Stop: 12/19/19 13:53 Last Infusion: 12/19/19 14:41 Dose: 0 mls/hr Documented by: [id number] Admin: 12/19/19 13:39 Dose: 1,011.2 mls/hr Documented by: [id number] Lorazepam (Ativan) 1 mg in 2 mls @ 2 mls/min IV NOW STA Stop: 12/19/19 12:55 Last Admin: 12/19/19 13:04 Dose: 2 mls/min Documented by: [id number] Lactated Ringer's (Lr) 1,000 mls @ 999 mls/hr IV .Q1H1M ONE Stop: 12/19/19 14:54 Last Admin: 12/19/19 15:05 Dose: 999 mls/hr Documented by: [id number] Lorazepam (Ativan) 1 mg in 2 mls @ 2 mls/min IV NOW STA Stop: 12/19/19 14:53 Last Admin: 12/19/19 15:05 Dose: 2 mls/min Documented by: [id number] Imaging Data Radiologist's Impression: Patient: SUDHEER ALMARAZ Admit Date: 12/19/19 MR#: [id number] Address1: [address] [place] [address] Acct ID:[id number] Address2: Date: 1985 [facility] Zip: [place] [address] Age: 34 Location: ED Sex: F Room/Bed: Att Phy: Diagnosis: fall/ confused Emma Phy: Nazario Perez MD Service Date: 12/19/19 Fam Phy: Interpreting Phy: Felice Amato MD Admit Phy: Ordering Phy: Pepe Molina DO cc: ~ CT SCAN OF THE BRAIN WITHOUT IV CONTRAST CLINICAL HISTORY: Fall COMPARISON STUDY: No priors. TECHNIQUE: Unenhanced axial CT scan of the brain is performed from the vertex to the skull base. A dose lowering technique was utilized adhering to the principles of ALARA. CT DOSE: 935.81 mGy.cm FINDINGS: Brain parenchyma: The brain parenchyma is normal in appearance. There is no hemorrhage, mass effect, or evidence of acute territorial ischemia by CT criteria. Park-white matter differentiation is preserved. No extra-axial fluid collection is seen. Ventricles, sulci, cisterns: Normal in configuration. Intracranial vasculature: The visualized intracranial vasculature at the skull base is normal in appearance. Calvarium: There is no depressed calvarial fracture. Soft tissues: A 1.4 cm sebaceous cyst is noted in the right posterior parietal scalp. Sinuses and mastoids: The visualized paranasal sinuses are clear. The mastoid air cells are well pneumatized. Orbits: The bony orbits are grossly intact. IMPRESSION: No acute intracranial abnormality. ACT 112: Negative or not required by law. Electronically signed by: Felice Amato M.D. 12/19/2019 2:52 PM Dictated: 12/19/19 1450 Transcribed: 12/19/191449 Patient: SUDHEER ALMARAZ Admit Date: 12/19/19 MR#: [id number] Address1: [address] [facility] Acct ID:[id number] Address2: Date: 1985 [facility] Zip: [place] [address] Age: 34 Location: ED Sex: F Room/Bed: Att Phy: Diagnosis: fall/ confused Emma Phy: Nazario Perez MD Service Date: 12/19/19 [facility] Phy: Interpreting Phy: Felice Amato MD Admit Phy: Ordering Phy: Pepe Molina DO cc: ~ SINGLE VIEW CHEST CLINICAL HISTORY: Fall. FINDINGS: An AP, portable, upright chest radiograph is compared to study dated 10/03/2019. The cardiomediastinal silhouette is unremarkable. The lungs and pleural spaces are clear. No pneumothorax is seen. Nipple shadows project over the lung bases. The bony thorax is grossly intact. IMPRESSION: No active disease in the chest. ACT 112: Negative or not required by law. Electronically signed by: Felice Amato M.D. 12/19/2019 1:19 PM Dictated: 12/19/198 Transcribed: 12/19/198 Patient: SUDHEER ALMARAZ Admit Date: 12/19/19 MR#: [id number] Address1: [address] [facility] Acct ID:[id number] Address2: Date: 1985 [facility] Zip: [place] [address] Age: 34 Location: ED Sex: F Room/Bed: Att Phy: Diagnosis: fall/ confused Emma Phy: Nazario Perez MD Service Date: 12/19/19 Fam Phy: Interpreting Phy: Felice Amato MD Admit Phy: Ordering Phy: Pepe Molina DO cc: ~ CT SCAN OF THE CERVICAL SPINE CLINICAL HISTORY: Fall. COMPARISON STUDY: No priors. TECHNIQUE: CT scan of the cervical spine is performed from the skull base to the upper thoracic spine. Images are reviewed in the axial, sagittal, and coronal planes. IV contrast was not administered for this examination. A dose lowering technique was utilized adhering to the principles of ALARA. FINDINGS: Skeletal structures: The skeletal structures are well mineralized. There is no evidence of fracture or subluxation involving the cervical spine. Vertebral body height and alignment are maintained. There is straightening of the cervical lordosis. The odontoid process and lateral masses are intact. The atlantoaxial articulation is preserved. The spinous processes appear intact. Intervertebral discs: The disc spaces are well maintained. Central canal: Widely patent. Soft tissues: The prevertebral and paraspinous soft tissues are within normal limits. Calvarium: The visualized calvarium at the skull base appears intact. Brain parenchyma: Partially visualized brain parenchyma the skull base is within normal limits. Sinuses and mastoids: Trace mucosal thickening is noted in the sphenoid sinuses. The mastoid air cells are well pneumatized. Lung apices: Emphysematous change is noted at the lung apices. IMPRESSION: 1. There is no evidence of fracture or subluxation involving the cervical spine. 2. Emphysema. ACT 112: Negative or not required by law. Electronically signed by: Felice Amato M.D. 12/19/2019 2:57 PM Dictated: 12/19/19 1452 Transcribed: 12/19/19 1452 Blood Pressure Blood Pressure Findings: Normal blood pressure Discharge Plan Visit Data Chief Complaint: Alcohol Withdrawal Stated Complaint: fall/ confused ED Provider: Pepe Molina Discharge Problem: Alcoholism, Alcohol withdrawal, Hypomagnesemia, Alcohol related seizure Patient Disposition: Being Evaluated by Hospitalist Condition: Good Forms Stand Alone Forms: My [facility] Coin, Suicide Prevention Resources Prescriptions Prescriptions: No Action bupropion HCl [Wellbutrin SR] 150 mg tablet sustained-release 12 hr 300 mg PO DAILY RF: 0 venlafaxine 150 mg capsule,extended release 24hr 300 mg PO DAILY RF: 0 gabapentin 100 mg capsule 100 mg PO TID 30 Days Qty: 90 RF: 0 hydroxyzine pamoate [Vistaril] 50 mg capsule 50 mg PO TID RF: 0 Referrals Referrals: Nazario Perez MD [Primary Care Provider] -
--- NOTE | 2019-12-19 14:53 | CT Scan Report ---
CT SCAN OF THE BRAIN WITHOUT IV CONTRAST CLINICAL HISTORY: Fall COMPARISON STUDY: No priors. TECHNIQUE: Unenhanced axial CT scan of the brain is performed from the vertex to the skull base. A d ose lowering technique was utilized adhering to the principles of ALARA. CT DOSE: 935.81 mGy.cm FINDINGS: Brain parenchyma: The brain parenchyma is normal in appearance. There is no hemorrhage, mass effect, or evidence of acute territorial ischemia by CT criteria. Park-white matter differentiation is preser chelsie. No extra-axial fluid collection is seen. Ventricles, sulci, cisterns: Normal in configuration. Intracranial vasculature: The visualized intracranial vasculature at the skull base is normal in appe arance. Calvarium: There is no depressed calvarial fracture. Soft tissues: A 1.4 cm sebaceous cyst is noted in the right posterior parietal scalp. Sinuses and mastoids: The visualized paranasal sinuses are clear. The mastoid air cells are well pneu matized. Orbits: The bony orbits are grossly intact. IMPRESSION: No acute intracranial abnormality. ACT 112: Negative or not required by law. Electronically signed by: Felice Amato M.D. 12/19/2019 2:52 PM
--- NOTE | 2019-12-19 14:58 | CT Scan Report ---
CT SCAN OF THE CERVICAL SPINE CLINICAL HISTORY: Fall. COMPARISON STUDY: No priors. TECHNIQUE: CT scan of the cervical spine is performed from the skull base to the upper thoracic spine . Images are reviewed in the axial, sagittal, and coronal planes. IV contrast was not administered fo r this examination. A dose lowering technique was utilized adhering to the principles of ALARA. FINDINGS: Skeletal structures: The skeletal structures are well mineralized. There is no evidence of fracture o r subluxation involving the cervical spine. Vertebral body height and alignment are maintained. There is straightening of the cervical lordosis. The odontoid process and lateral masses are intact. The a tlantoaxial articulation is preserved. The spinous processes appear intact. Intervertebral discs: The disc spaces are well maintained. Central canal: Widely patent. Soft tissues: The prevertebral and paraspinous soft tissues are within normal limits. Calvarium: The visualized calvarium at the skull base appears intact. Brain parenchyma: Partially visualized brain parenchyma the skull base is within normal limits. Sinuses and mastoids: Trace mucosal thickening is noted in the sphenoid sinuses. The mastoid air cell s are well pneumatized. Lung apices: Emphysematous change is noted at the lung apices. IMPRESSION: 1. There is no evidence of fracture or subluxation involving the cervical spine. 2. Emphysema. ACT 112: Negative or not required by law. Electronically signed by: Felice Amato M.D. 12/19/2019 2:57 PM
[2019-12-19] MEDS: MAGNESIUM SULFATE / D5W 1 GM/100 ML BAG IV SCH ×2 (15:08→16:07)
[2019-12-19] MEDS ORDERED: chlordiazePOXIDE ALCOHOL WITHDRAWL 25MG PO STA (15:28)
--- NOTE | 2019-12-19 15:51 | History & Physical Report ---
Date of Service December 19, 2019 Assessment & Plan (1) Alcohol withdrawal seizure: and with possible DRUG OVERDOSE -patient reports last alcohol drink 1 and 1/2 week ago and in the past she would drink 1 bottle of vodka daily but she decided to detox at home by stopping alcohol use abruptly -as per patient's roommate Chong, he corroborates that patient was in bed for 1 week and the roommates would bring food to her and encourage her to go see the doctor. Chong then reports on 12/19/2019 in the day time, he heard a loud noise in the bathroom and found that the patient had fallen down, with tremors, and "foaming of the mouth" and he called for ambulance. Chong also brings patient's prescription of Vistaril (Hydroxyzine) from a Dr. Bertrand Polk filled at [address] with instructions at 50 mg TID prn for anxiety and reported that patient may have finished the entire bottle of medication in a 2 day span -Patient with some tremors but speaking in full sentences and denies taking any other medications recently -There is no evidence of fracture or subluxation involving the cervical spine and no acute intracranial abnormality on head CT -ED provider gave banana bag, IV fluids, IV magnesium -hospitalist called poison control ( ) in regards to suspected Vist aril (Hydroxyzine) overdose when at home. -alcohol withdrawal protocol with Librium, monitor on telemetry, continue IV fluids, replete electrolytes, daily thiamine, daily folic acid, give IV pantopra zole for now, seizure precautions -neurology consult for possible seizure at home -psychiatry consult assessment when medically stable -auto painter consult -PT/OT -case management (2) Prolonged Q-T interval on ECG: -admission QTc 476 and QRS 96 -monitor on telemetry -as per poison control ( ), if the QRS becomes greater than 120, then patient should get 3 amps of bicarbonate and consider bicarbonate drip -correct the electrolytes (3) Hypomagnesemia: -serum magnesium 1.6, IV magnesium ordered in the ED -continue to replete and trend serum magesium to target a level of 2 -start oral magnesium oxide -auto painter consult (4) Elevated lactic acid level: -likely from intoxication and poor oral intake at home and and possible seizure at home -give IV fluids and trend the lactic acid levels -no antibiotics at this time as other reasons for admission symptoms appear more likely but follow the lactic acid and inflammatory markers, monitor for fever if that occurs. patient was ruled out for endocarditis in 09/06/2019 with [facility] (5) Increased anion gap metabolic acidosis: -anion gap of 15 on presentation -give IV fluids and trend the lactic acid levels and monitor the anion gap (6) Transaminitis: -follow the liver enzymes, transaminitis likely from alcohol use -acetaminophen levels and salicyclic acid normal -of note patient did have history of ERCP and stent placed in 2019, monitor and see if GI consult is needed on this admission (7) Tobacco use: -patient uses tobacco but denies recent use -she declines nicotine patch in the Emergency Room DVT prophylaxis: SCDs Full Code as per discussion with patient and admitting hospitalist Roommate Chong [phone] Mother Lori [phone] History of Present Illness -patient reports last alcohol drink 1 and 1/2 week ago and in the past she would drink 1 bottle of vodka daily but she decided to detox at home by stopping alcohol use abruptly -as per patient's roommate Chong, he corroborates that patient was in bed for 1 week and the roommates would bring food to her and encourage her to go see the doctor. Chong then reports on 12/19/2019 in the day time, he heard a loud noise in the bathroom and found that the patient had fallen down, with tremors, and "foaming of the mouth" and he called for ambulance. Chong also brings patient's prescription of Vistaril (Hydroxyzine) from a Dr. Bertrand Polk filled at [address] with instructions at 50 mg TID prn for anxiety and reported that patient may have finished the entire bottle of medication in a 2 day span -Patient with some tremors but speaking in full sentences and denies taking any other medications recently -on review of systems, patient is not in acute distress. she initially denies any pain but later said there was some headache and upper abdominal discomforts. patient reports nausea but no vomiting. breathing on room air. denies fevers at home. denies other symptoms Family History: mother has diabetes mellitus Primary Care Provider: Nazario Perez MD Allergies Allergy/AdvReac Type Severity Reaction Status Date / Time Penicillins Allergy Intermediate HIVES Verified 12/19/19 13:53 Home Medications Home Medications Medication Instructions Recorded Confirmed Type bupropion HCl [Wellbutrin SR] 300 mg PO DAILY 08/26/19 12/19/19 History venlafaxine 300 mg PO DAILY 09/03/19 12/19/19 History gabapentin 100 mg PO TID 30 Days #90 cap 09/11/19 12/19/19 Rx hydroxyzine pamoate [Vistaril] 50 mg PO TID 12/19/19 12/19/19 History Past Med/Surg History Medical History Alcoholism No significant active problems Surgical History S/P appendectomy S/P ERCP Social History Smoking Status: Current every day smoker Second Hand Exposure: Yes; Hx Alcohol Use: Yes Alcohol type: wine Hx Substance Use: No Preferred Language: [place] Communication Ability: Effective Geospatial Imagery Intelligence Analyst Required: No Beliefs That Will Affect Care: None marital status: Single Current Living Situation: Alone Feels Safe at Home: Yes Assistive Devices: Contacts, Denture - Upper and Denture - Lower Review of Systems Review of Systems: All systems reviewed & are unremarkable except as noted in Subjective Physical Exam Constitutional: cooperative Eyes: PERRL, conjunctivae normal, anicteric sclerae EOM intact bilaterally ENMT: external ear and nose normal, oropharynx normal Neck: trachea midline, no thyromegaly Respiratory: normal respiratory effort, lungs clear to auscultation Cardiovascular: Rate/Rhythm: + tachycardic (low 100 bpm) Gastrointestinal (Abdomen): normal bowel sounds, soft, nontender, no hepatosplenomegaly Musculoskeletal: Head/Neck/Chest: normocephalic and head atraumatic Neurologic: PERRL, EOMI, accommodation nl, no face palsy, no dysarthria moves all extremities Motor/Sensory: + tremor Psychiatric: Orientation: alert and cooperative Results & Data Results & Data ([facility]) Vital Signs (Past 12 Hours) Vital Signs Temp Pulse Pulse Resp BP BP Pulse Ox 12/19/19 15:30 103 H 18 112/78 99 12/19/19 15:11 109 H 20 100/73 97 12/19/19 15:04 104 H 19 100/73 97 12/19/19 13:30 114 H 17 130/87 100 12/19/19 13:07 36.5 C 122 H 20 136/96 98 12/19/19 13:00 114 H 18 125/92 99 12/19/19 12:59 119 H 14 99 12/19/19 12:55 117 H 15 122/89 100
[2019-12-19] MEDS ORDERED: SODIUM CHLORIDE 0.9% 1000ML 1,000 ML IV ONE (16:44)
[2019-12-19] MEDS: SODIUM CHLORIDE 0.9% 1000ML 1,000 ML IV SCH (17:45)
[2019-12-19] MEDS ORDERED: PROMETHAZINE HCL 6.25 MG in SODIUM CHLORIDE 0.9% 50 ML IV PRN (18:05)
[2019-12-19] MEDS ORDERED: POTASSIUM CHLORIDE CRTAB 20 MEQ TABCR PO STA (18:05)
[2019-12-19] MEDS: THIAMINE HCL 100 MG TAB PO SCH (18:24)
[2019-12-19] MEDS: FOLIC ACID 1 MG TAB PO SCH (18:24)
[2019-12-19] MEDS: chlordiazePOXIDE HCl 25 MG CAP PO SCH ×2 (18:25→23:48)
[2019-12-19] MEDS: MAGNESIUM OXIDE 400 MG TAB PO SCH (18:25)
[2019-12-19 18:26] LABS: Alanine Aminotransferase 42 U/L (12-78); Aspartate Aminotransferase 166 U/L (15-37); BUN Creatinine Ratio 9.1 (10-20); Blood Urea Nitrogen 6 mg/dl (7-18); C Reactive Protein 0.84 mg/dl (0-0.29); Calcium 7.7 mg/dl (8.5-10.1); Chloride 100 mmol/L (98-107); Creatinine Clr Calc Pharmacy 112.2 ml/min; Est GFR (African American) 132.9; Est GFR (Non-African American) 114.6; Glucose 101 mg/dl (70-99); Magnesium 1.9 mg/dl (1.8-2.4); Potassium 3.1 mmol/L (3.5-5.1); Sodium 137 mmol/L (136-145)
[2019-12-19] MEDS: POTASSIUM CHLORIDE / WTR 10 MEQ/100 ML PLCT IV SCH ×2 (18:26→20:29)
[2019-12-19] MEDS ORDERED: PANTOprazole 40 MG in SYRINGE 0 ML IV ONE (18:30)
[2019-12-19 18:31] LABS: Albumin Globulin Ratio 0.5 (0.9-2); Alkaline Phosphatase 301 U/L (45-117); Bilirubin,Total 1.4 mg/dl (0.2-1); Globulin 3.7 gm/dl (2.5-4.0); Phosphorus 2.6 mg/dl (2.5-4.9); Total Protein 5.7 gm/dl (6.4-8.2)
[2019-12-19 18:46] LABS: Albumin Globulin Ratio 0.5 (0.9-2); Albumin Level 2.2 gm/dl (3.4-5.0); BUN Creatinine Ratio 9.7 (10-20); Bilirubin,Total 1.8 mg/dl (0.2-1); Calcium 8.2 mg/dl (8.5-10.1); Est GFR (African American) 135.5; Est GFR (Non-African American) 116.9; Magnesium 2.6 mg/dl (1.8-2.4); Potassium 3.6 mmol/L (3.5-5.1); Total Protein 6.2 gm/dl (6.4-8.2)
[2019-12-19] MEDS ORDERED: DEXTROSE 5% IV ONE ×2 (19:00→20:00)
[2019-12-19] MEDS ORDERED: ACETYLCYSTEINE IV ONE ×2 (19:00→20:00)
[2019-12-19] MEDS ORDERED: IOVERSOL 100ml IV ONE (20:05)
[2019-12-19 20:07] LABS: Appearance Urine Clear (Clear); Bacteria Urine Automated 2+ (Negative); Bilirubin Urine Negative (Negative); Blood Urine 1+ (Negative); Cast Urine Automated 0 /lpf (0-5); Color Urine Yellow; Epithelial Cell Urine Auto >30 /lpf (0-5); Glucose Urine UA Negative (Negative); Ketones Urine Negative (Negative); Leukocyte Esterase Urine 2+ (Negative); Nitrite Urine Positive (Negative); Protein Urine Negative (Negative); RBC Urine Automated 0-4 /hpf (0-4); Specific Gravity Urine 1.005 (1.000-1.030); Urobilinogen Urine Negative (Negative); pH Urine 7.5 (4.5-7.5)
[2019-12-19 20:27] LABS: Amphetamines+Metham, Urine Neg (Neg); Barbiturates, Urine Neg (Neg); Benzodiazepine, Urine Neg (Neg); Cocaine, Urine Neg (Neg); MDMA (Ecstacy), Urine Neg (Neg); Methadone, Urine Neg (Neg); Opiate, Urine Neg (Neg); Phencyclidine, Urine Neg (Neg)
[2019-12-19] MEDS: POT PHOSPHATE MONOBASIC W/ SOD TAB PO SCH (21:39)
[2019-12-19] MEDS: cefTRIAXone SODIUM 1,000 MG in DEXTROSE 5% 50 ML IV SCH (22:55)
[2019-12-19] MEDS: metroNIDAZOLE 500 MG/100 ML BAG IV SCH (23:37)
[2019-12-20] MEDS ORDERED: DEXTROSE 5% IV ONE
[2019-12-20] MEDS ORDERED: ACETYLCYSTEINE IV ONE
[2019-12-20] MEDS: LORazepam 1 MG/2 ML VIAL IV PRN ×3 (04:45→19:20)
[2019-12-20] MEDS: SODIUM CHLORIDE 0.9% 1000ML 1,000 ML IV SCH ×2 (05:09→19:19)
[2019-12-20] MEDS: chlordiazePOXIDE HCl 25 MG CAP PO SCH ×3 (05:10→17:53)
[2019-12-20 06:14] LABS: Estimated Average Glucose 91 mg/dl; Hemoglobin A1C 4.8 % (4.5-5.6)
[2019-12-20] MEDS: metroNIDAZOLE 500 MG/100 ML BAG IV SCH ×3 (06:51→23:57)
[2019-12-20] MEDS: THIAMINE HCL 100 MG TAB PO SCH (07:38)
[2019-12-20] MEDS: POT PHOSPHATE MONOBASIC W/ SOD TAB PO SCH ×4 (07:38→19:19)
[2019-12-20] MEDS: FOLIC ACID 1 MG TAB PO SCH (07:39)
[2019-12-20 07:57] LABS: Hematocrit (blood only) 32.4 % (37-47); Hemoglobin 11.2 g/dL (12.0-16.0); Mean Corpuscular Hemoglobin 32.8 pg (25-34); Mean Corpuscular Hgb Conc 34.6 g/dL (32-36); RDW Coefficient of Variation 12.4 % (11.5-14.5); RDW Standard Deviation 42.6 fL (36.4-46.3); Red Blood Count 3.41 M/uL (4.2-5.4); White Blood Count 6.09 K/uL (4.8-10.8)
[2019-12-20 08:06] LABS: Mean Platelet Volume 9.1 fL (7.4-10.4); Platelet Count 58 K/uL (130-400)
--- NOTE | 2019-12-20 08:16 | CT Scan Report ---
CT OF THE ABDOMEN AND PELVIS WITH CONTRAST CLINICAL HISTORY: transaminitis COMPARISON STUDY: CT of the abdomen and pelvis October 03, 2019. TECHNIQUE: Following IV administration of 94 mL of Optiray-320, axial images of the abdomen and pelvi s were obtained from the lung bases to the proximal femurs. Images were reviewed in the axial, sagitt al, and coronal planes. IV contrast was administered without complication. Automated exposure contro l was utilized for the study. A dose lowering technique was utilized adhering to the principles of A MARGOTH. CT DOSE: 323.31 mGy.cm FINDINGS: Lung bases are unremarkable. No pneumatosis, free air or portal venous gas is present. Ther e is marked fatty infiltration of the liver. Hepatomegaly is noted. There is no biliary or pancreatic ductal dilatation. A pancreatic stent is in place. Peripancreatic infiltration has increased when co mpared to exam of October 03, 2019. There is heterogeneous enhancement of the pancreatic parenchyma. No peripancreatic fluid collection is present. Splenic vein is patent. No pseudoaneurysm is identified o n. Main, left and right portal veins are patent. The adrenal glands, spleen and kidneys are normal. T here is no hydronephrosis. There is mild gallbladder wall thickening. No pneumatosis, free air or [place] venous gas is present. Mild diffuse colonic wall thickening is noted. This is likely due to under distention. No suspicious osseous lesions are noted. Major vasculature is patent. IMPRESSION: 1. Marked fatty infiltration of the liver. Hepatomegaly. 2. Mild to moderate peripancreatic infiltration consistent with acute pancreatitis, increased from pr ior exam. No peripancreatic fluid collection. 3. No biliary or pancreatic ductal dilatation. Pancreatic stent in place. 4. Mild gallbladder wall thickening. If suspicion for acute cholecystitis, right upper quadrant ultra sound could be obtained. 5. Mild colonic wall thickening which is likely due to underdistention although a mild nonspecific co litis could appear similar. ACT 112: Negative or not required by law. Electronically signed by: Ronak Benavidez M.D. 12/20/2019 8:15 AM
[2019-12-20 08:23] LABS: BUN Creatinine Ratio 8.3 (10-20); Calcium 8.3 mg/dl (8.5-10.1); Creatinine Clr Calc Pharmacy 160.3 ml/min; Est GFR (African American) 149.4; Est GFR (Non-African American) 128.9; Potassium 3.1 mmol/L (3.5-5.1)
[2019-12-20 08:35] LABS: Albumin Globulin Ratio 0.5 (0.9-2); Bilirubin Direct 0.7 mg/dl (0-0.2); Bilirubin,Total 1.9 mg/dl (0.2-1); Globulin 3.8 gm/dl (2.5-4.0); Phosphorus 0.9 mg/dl (2.5-4.9); Total Protein 5.8 gm/dl (6.4-8.2)
[2019-12-20 09:15] LABS: Immature Granulocytes # (auto) 0.02 K/uL (0.00-0.02); Immature Granulocytes % (auto) 0.3 %; Lymphocytes # (auto) 0.94 K/uL (1.2-3.4); Lymphocytes % (auto) 15.4 %; Monocytes # (auto) 0.79 K/uL (0.11-0.59); Neutrophils # (auto) 4.34 K/uL (1.4-6.5); Neutrophils % (auto) 71.3 %; Pappenheimer Bodies Occasional; Stomatocytes 1+
--- NOTE | 2019-12-20 09:16 | Gastrointestinal Consultation ---
Date of Consultation December 20, 2019 Assessment & Plan (1) Transaminitis: 34 year old female w/ history of ETOH abuse, pancreatitis w signs of ductal disruption, likely ETOH hepatitis s/p ERCP 08/28 w pancreatic duct stent placement, pancreatic sphincterectomy lost to OP follow up admitted w/ ongoing ETOH use, concern for ETOH withdrawal seizure and drug overdose prior to arrival - GI asked to evaluate given transaminitis. She is afebrile without leukocytosis and denies any abd pain, nausea/vomiting. While her PD stent is in place there is no evidence of ductal dilation on CTAP. DDX discussed: pancreatitis, ETOH hep, DILI vs others. Maddrey DF 6.5, no current indication for steroid therapy. NPO Can continue LR 200 mL/hr Antiemetics PRN Analgesia PRN Follow blood culture Can continue ABX for now ABD US to better evaluate GB Consult General Surgery if ABD US concerning for cholecystitis ETOH cessation was recommended CIWA protocol Can continue NAC per 21 hr protocol Trend LFTs Will follow. Thank you for allowing us to participate in the care of this patient. Please call with any acute changes, questions or concerns. Please see addendum below with additional recommendation from my supervising physician. Supervising Physician Co-Signing Physician Notes I have seen and examined the patient and discussed the management with YOMAIRA Baron. Admitted through the ed with fatigue, vague complaints, h and p reported possible ingestion and frothing of the mouth. PE - alert and oriented to person, place, time, HEENT - perrla, no scleral icterus, CV- tachycardic, Pulm- ctab, Abd - soft nt nd +bs Labs reviewed: ast>alt likely from mild alcoholic hepatitis, tb slightly elevated, amylase normal + blood cultures for gnr, + ua for uti, urine tox negative CT A/P with signs of intact pancreatic stent placement, no biliary dilation, ? cholecystitis Likely she has mild alcoholic hepatitis on superimposed alcoholic pancreatitis after having a prior pancreatic stent placement in 08/27 and also ventral pancreatic stent placement (plastic) at the same time due to a ventral pancreatic disruption noted on ercp. given low maddrey's - nac may also help with mild alcoholic hepatitis. ? ingestion of medication/drug may also be contributing to her elevated lft's - however urine tox negative on admission and also given nac- can continue nac for additional 24 hours Would obtain mrcp to further evaluate biliary tract Hepatic doppler to ensure pv/hv are patent and to rule out budd chiari as source for elevated lft's Continue abx for now ? Cholecystitis given findings on ct a/p woudl consider test if not done already. History of Present Illness Reason for Consultation: elevated LFTs, history of ERCP Requesting Physician: Javier Attending Physician: Mary Herrera MD History of Present Illness 34 year old female w/ history of ETOH abuse, pancreatitis w signs of ductal disruption, likely ETOH hepatitis s/p ERCP 08/28 w pancreatic duct stent place ment, pancreatic sphincterectomy lost to OP follow up who presents through the ED with generalized symptoms, decreased appetite, fatigue concern for alcohol withdrawal seizure and possible drug overdose [employer] - GI asked to evaluate for eleavted LFTs, history of ERCP. Pt was seen and evaluated, chart reviewed. She offers no GI concerns. She denies abd pain. No nausea/vomiting. No change in bowels - no diarrhea/constipation. She is wanting PO intake. Last ETOH use reported was about 5 days ago. Denies any new medications CTAP: . Marked fatty infiltration of the liver. Hepatomegaly. Mild to moderate peripancreatic infiltration consistent with acute pancreatitis, increased from prior exam. No peripancreatic fluid collection. No biliary or pancreatic ductal dilatation. Pancreatic stent in place.Mild gallbladder wall thickening. If suspicion for acute cholecystitis, right upper quadrant ultrasound could be obtained. Mild colonic wall thickening which is likely due to underdistention although a mild nonspecific colitis could appear similar. Allergies Allergy/AdvReac Type Severity Reaction Status Date / Time Penicillins Allergy Intermediate HIVES Verified 12/19/19 13:53 Home Medications Home Medications Medication Instructions Recorded Confirmed Type bupropion HCl [Wellbutrin SR] 300 mg PO DAILY 08/26/19 12/19/19 History venlafaxine 300 mg PO DAILY 09/03/19 12/19/19 History gabapentin 100 mg PO TID 30 Days #90 cap 09/11/19 12/19/19 Rx hydroxyzine pamoate [Vistaril] 50 mg PO TID 12/19/19 12/19/19 History Patient History Medical History Alcoholism No significant active problems Surgical History S/P appendectomy S/P ERCP Social History Smoking Status: Current every day smoker Second Hand Exposure: Yes; Do You Dip or Chew Tobacco: No; Hx Alcohol Use: Yes Alcohol type: hard liquor Hx Substance Use: No Preferred Language: Ukrainian Communication Ability: Effective Manager Inpatient Required: No marital status: Single Current Living Situation: Other Feels Safe at Home: Yes Safety Concerns: Feels Safe At This Time Assistive Devices: None Review of Systems Constitutional: + weakness; no fever and no body aches Respiratory: no cough and no dyspnea Cardiovascular: no chest pain and no lightheadedness Gastrointestinal: no abdominal pain, no nausea, no coffee ground emesis, no hematemesis, no diarrhea/loose stools, no blood in stools and no melena Physical Exam Constitutional: + ill appearing (chronically ill appearing); no acute distress Neck: trachea midline Respiratory: normal respiratory effort Gastrointestinal (Abdomen): Percussion/Palpation: abdomen soft; abdomen nontender, no guarding and abdomen not rigid Skin: no rashes, warm and dry Results & Data ([facility]) Vital Signs (Past 12 Hours) Vital Signs Temp Pulse Resp BP Pulse Ox 12/20/19 07:06 36.6 C 125 H 18 97/71 L 97 12/20/19 04:21 37.4 C 112 H 18 114/78 99 12/19/19 23:43 37.3 C 96 H 18 127/87 99 Laboratory Results 12/20/19 12/20/19 12/20/19 Range/Units 07:41 07:41 07:41 WBC 6.09 (4.8-10.8) K/uL RBC 3.41 L (4.2-5.4) M/uL Hgb 11.2 L (12.0-16.0) g/dL Hct 32.4 L (37-47) % MCV 95.0 (80-100) fL MCH 32.8 (25-34) pg MCHC 34.6 (32-36) g/dL RDW Std Deviation 42.6 (36.4-46.3) fL RDW Coeff of Meme 12.4 (11.5-14.5) % Plt Count 58 L (130-400) K/uL MPV 9.1 (7.4-10.4) fL Immature Gran % (Auto) 0.3 % Neut % (Auto) 71.3 % Lymph % (Auto) 15.4 % Early % (Auto) 13.0 % Eos % (Auto) 0.0 % Baso % (Auto) 0.0 % Neut # (Auto) 4.34 (1.4-6.5) K/uL Lymph # (Auto) 0.94 L (1.2-3.4) K/uL Early # (Auto) 0.79 H (0.11-0.59) K/uL Eos # (Auto) 0.00 (0-0.5) K/uL Baso # (Auto) 0.00 (0-0.2) K/uL Immature Gran # (Auto) 0.02 (0.00-0.02) K/uL Platelet Estimate (Normal) Pappenheimer Bodies Occasional Stomatocytes 1+ ESR (0-21) mm/hr PT (9.0-12.0) Seconds INR (0.9-1.1) APTT (21.0-31.0) Seconds PTT Ratio VBG pH (7.36-7.41) VBG pCO2 (38-50) mmHg VBG pO2 mmHg VBG HCO3 mmol/L VBG O2 Saturation % VBG Base Excess mEq/L Barometric Pressure mm/Hg Sodium 138 (136-145) mmol/L Potassium 3.1 L (3.5-5.1) mmol/L Chloride 103 (98-107) mmol/L Carbon Dioxide 26 (21-32) mmol/L Anion Gap 9.0 (3-11) BUN 4 L (7-18) mg/dl Creatinine 0.49 L (0.6-1.2) mg/dl Est Cr Clr Drug Dosing 160.3 ml/min Est GFR ( Amer) 149.4 Est GFR (Non-Af Amer) 128.9 BUN/Creatinine Ratio 8.3 L (10-20) Glucose 96 (70-99) mg/dl Estimat Average Glucose mg/dl Hemoglobin A1c (4.5-5.6) % Lactate 1.0 (0.4-2.0) mmol/L Calcium 8.3 L (8.5-10.1) mg/dl Phosphorus 0.9 L* D (2.5-4.9) mg/dl Magnesium 2.0 (1.8-2.4) mg/dl Total Bilirubin 1.9 H (0.2-1) mg/dl Direct Bilirubin 0.7 H (0-0.2) mg/dl AST 204 H (15-37) U/L ALT 46 (12-78) U/L Alkaline Phosphatase 309 H (45-117) U/L Ammonia (11-32) umol/L Total Creatine Kinase (26-192) U/L Troponin I (0-0.045) ng/ml C-Reactive Protein (0-0.29) mg/dl Total Protein 5.8 L (6.4-8.2) gm/dl Albumin 2.0 L (3.4-5.0) gm/dl Globulin 3.8 (2.5-4.0) gm/dl Albumin/Globulin Ratio 0.5 L (0.9-2) Amylase 31 (25-115) U/L Folate (>5.38) ng/ml Procalcitonin (0-0.5) ng/ml Prolactin ng/ml HCG, Qual (Negative) Urine Color Urine Appearance (Clear) Urine pH (4.5-7.5) Ur Specific Rarden (1.000-1.030) Urine Protein (Negative) Urine Glucose (UA) (Negative) Urine Ketones (Negative) Urine Blood (Negative) Urine Nitrite (Negative) Urine Bilirubin (Negative) Urine Urobilinogen (Negative) Ur Leukocyte Esterase (Negative) Urine WBC (Auto) (0-5) /hpf Urine RBC (Auto) (0-4) /hpf U Hyaline Cast (Auto) (0-5) /lpf U Epithel Cells (Auto) (0-5) /lpf Urine Bacteria (Auto) (Negative) Salicylates (2.8-20) mg/dl Urine Opiates Screen (Neg) Ur Methadone, Qual (Neg) Acetaminophen (10-30) ug/ml Urine Barbiturates (Neg) Ur Phencyclidine (PCP) (Neg) U Amphetamin/Meth Scrn (Neg) MDMA (Ecstasy) Screen (Neg) U Benzodiazepines Scrn (Neg) Ur Cocaine Metabolite (Neg) U Marijuana (THC) Screen (Neg) Ethyl Alcohol mg/dL (0-3) mg/dl 12/19/19 12/19/19 12/19/19 Range/Units 19:44 19:44 18:17 WBC (4.8-10.8) K/uL RBC (4.2-5.4) M/uL Hgb (12.0-16.0) g/dL Hct (37-47) % MCV (80-100) fL MCH (25-34) pg MCHC (32-36) g/dL RDW Std Deviation (36.4-46.3) fL RDW Coeff of Meme (11.5-14.5) % Plt Count (130-400) K/uL MPV (7.4-10.4) fL Immature Gran % (Auto) % Neut % (Auto) % Lymph % (Auto) % Early % (Auto) % Eos % (Auto) % Baso % (Auto) % Neut # (Auto) (1.4-6.5) K/uL Lymph # (Auto) (1.2-3.4) K/uL Early # (Auto) (0.11-0.59) K/uL Eos # (Auto) (0-0.5) K/uL Baso # (Auto) (0-0.2) K/uL Immature Gran # (Auto) (0.00-0.02) K/uL Platelet Estimate (Normal) Pappenheimer Bodies Stomatocytes ESR (0-21) mm/hr PT (9.0-12.0) Seconds INR (0.9-1.1) APTT (21.0-31.0) Seconds PTT Ratio VBG pH (7.36-7.41) VBG pCO2 (38-50) mmHg VBG pO2 mmHg VBG HCO3 mmol/L VBG O2 Saturation % VBG Base Excess mEq/L Barometric Pressure mm/Hg Sodium 136 (136-145) mmol/L Potassium 3.6 D (3.5-5.1) mmol/L Chloride 99 (98-107) mmol/L Carbon Dioxide 32 (21-32) mmol/L Anion Gap 6.0 (3-11) BUN 6 L (7-18) mg/dl Creatinine 0.66 (0.6-1.2) mg/dl Est Cr Clr Drug Dosing 119.0 ml/min Est GFR ( Amer) 135.5 Est GFR (Non-Af Amer) 116.9 BUN/Creatinine Ratio 9.7 L (10-20) Glucose 85 (70-99) mg/dl Estimat Average Glucose mg/dl Hemoglobin A1c (4.5-5.6) % Lactate (0.4-2.0) mmol/L Calcium 8.2 L (8.5-10.1) mg/dl Phosphorus (2.5-4.9) mg/dl Magnesium 2.6 H (1.8-2.4) mg/dl Total Bilirubin 1.8 H (0.2-1) mg/dl Direct Bilirubin (0-0.2) mg/dl AST 180 H (15-37) U/L ALT 46 (12-78) U/L Alkaline Phosphatase 333 H (45-117) U/L Ammonia (11-32) umol/L Total Creatine Kinase (26-192) U/L Troponin I (0-0.045) ng/ml C-Reactive Protein (0-0.29) mg/dl Total Protein 6.2 L (6.4-8.2) gm/dl Albumin 2.2 L (3.4-5.0) gm/dl Globulin 4.0 (2.5-4.0) gm/dl Albumin/Globulin Ratio 0.5 L (0.9-2) Amylase (25-115) U/L Folate (>5.38) ng/ml Procalcitonin (0-0.5) ng/ml Prolactin ng/ml HCG, Qual (Negative) Urine Color Yellow Urine Appearance Clear (Clear) Urine pH 7.5 (4.5-7.5) Ur Specific Rarden 1.005 (1.000-1.030) Urine Protein Negative (Negative) Urine Glucose (UA) Negative (Negative) Urine Ketones Negative (Negative) Urine Blood 1+ H (Negative) Urine Nitrite Positive A (Negative) Urine Bilirubin Negative (Negative) Urine Urobilinogen Negative (Negative) Ur Leukocyte Esterase 2+ H (Negative) Urine WBC (Auto) 1-5 (0-5) /hpf Urine RBC (Auto) 0-4 (0-4) /hpf U Hyaline Cast (Auto) 0 (0-5) /lpf U Epithel Cells (Auto) >30 H (0-5) /lpf Urine Bacteria (Auto) 2+ H (Negative) Salicylates (2.8-20) mg/dl Urine Opiates Screen Neg (Neg) Ur Methadone, Qual Neg (Neg) Acetaminophen (10-30) ug/ml Urine Barbiturates Neg (Neg) Ur Phencyclidine (PCP) Neg (Neg) U Amphetamin/Meth Scrn Neg (Neg) MDMA (Ecstasy) Screen Neg (Neg) U Benzodiazepines Scrn Neg (Neg) Ur Cocaine Metabolite Neg (Neg) U Marijuana (THC) Screen Neg (Neg) Ethyl Alcohol mg/dL (0-3) mg/dl 12/19/19 12/19/19 12/19/19 Range/Units 18:04 15:54 15:54 WBC (4.8-10.8) K/uL RBC (4.2-5.4) M/uL Hgb (12.0-16.0) g/dL Hct (37-47) % MCV (80-100) fL MCH (25-34) pg MCHC (32-36) g/dL RDW Std Deviation (36.4-46.3) fL RDW Coeff of Meme (11.5-14.5) % Plt Count (130-400) K/uL MPV (7.4-10.4) fL Immature Gran % (Auto) % Neut % (Auto) % Lymph % (Auto) % Early % (Auto) % Eos % (Auto) % Baso % (Auto) % Neut # (Auto) (1.4-6.5) K/uL Lymph # (Auto) (1.2-3.4) K/uL Early # (Auto) (0.11-0.59) K/uL Eos # (Auto) (0-0.5) K/uL Baso # (Auto) (0-0.2) K/uL Immature Gran # (Auto) (0.00-0.02) K/uL Platelet Estimate (Normal) Pappenheimer Bodies Stomatocytes ESR (0-21) mm/hr PT (9.0-12.0) Seconds INR (0.9-1.1) APTT (21.0-31.0) Seconds PTT Ratio VBG pH (7.36-7.41) VBG pCO2 (38-50) mmHg VBG pO2 mmHg VBG HCO3 mmol/L VBG O2 Saturation % VBG Base Excess mEq/L Barometric Pressure mm/Hg Sodium (136-145) mmol/L Potassium (3.5-5.1) mmol/L Chloride (98-107) mmol/L Carbon Dioxide (21-32) mmol/L Anion Gap (3-11) BUN (7-18) mg/dl Creatinine (0.6-1.2) mg/dl Est Cr Clr Drug Dosing ml/min Est GFR ( Amer) Est GFR (Non-Af Amer) BUN/Creatinine Ratio (10-20) Glucose (70-99) mg/dl Estimat Average Glucose mg/dl Hemoglobin A1c (4.5-5.6) % Lactate 2.3 H* (0.4-2.0) mmol/L Calcium (8.5-10.1) mg/dl Phosphorus (2.5-4.9) mg/dl Magnesium (1.8-2.4) mg/dl Total Bilirubin (0.2-1) mg/dl Direct Bilirubin (0-0.2) mg/dl AST (15-37) U/L ALT (12-78) U/L Alkaline Phosphatase (45-117) U/L Ammonia (11-32) umol/L Total Creatine Kinase (26-192) U/L Troponin I < 0.015 (0-0.045) ng/ml C-Reactive Protein (0-0.29) mg/dl Total Protein (6.4-8.2) gm/dl Albumin (3.4-5.0) gm/dl Globulin (2.5-4.0) gm/dl Albumin/Globulin Ratio (0.9-2) Amylase (25-115) U/L Folate > 24.00 (>5.38) ng/ml Procalcitonin (0-0.5) ng/ml Prolactin ng/ml HCG, Qual (Negative) Urine Color Urine Appearance (Clear) Urine pH (4.5-7.5) Ur Specific Rarden (1.000-1.030) Urine Protein (Negative) Urine Glucose (UA) (Negative) Urine Ketones (Negative) Urine Blood (Negative) Urine Nitrite (Negative) Urine Bilirubin (Negative) Urine Urobilinogen (Negative) Ur Leukocyte Esterase (Negative) Urine WBC (Auto) (0-5) /hpf Urine RBC (Auto) (0-4) /hpf U Hyaline Cast (Auto) (0-5) /lpf U Epithel Cells (Auto) (0-5) /lpf Urine Bacteria (Auto) (Negative) Salicylates (2.8-20) mg/dl Urine Opiates Screen (Neg) Ur Methadone, Qual (Neg) Acetaminophen (10-30) ug/ml Urine Barbiturates (Neg) Ur Phencyclidine (PCP) (Neg) U Amphetamin/Meth Scrn (Neg) MDMA (Ecstasy) Screen (Neg) U Benzodiazepines Scrn (Neg) Ur Cocaine Metabolite (Neg) U Marijuana (THC) Screen (Neg) Ethyl Alcohol mg/dL (0-3) mg/dl 12/19/19 12/19/19 12/19/19 Range/Units 15:53 15:43 15:43 WBC (4.8-10.8) K/uL RBC (4.2-5.4) M/uL Hgb (12.0-16.0) g/dL Hct (37-47) % MCV (80-100) fL MCH (25-34) pg MCHC (32-36) g/dL RDW Std Deviation (36.4-46.3) fL RDW Coeff of Meme (11.5-14.5) % Plt Count (130-400) K/uL MPV (7.4-10.4) fL Immature Gran % (Auto) % Neut % (Auto) % Lymph % (Auto) % Early % (Auto) % Eos % (Auto) % Baso % (Auto) % Neut # (Auto) (1.4-6.5) K/uL Lymph # (Auto) (1.2-3.4) K/uL Early # (Auto) (0.11-0.59) K/uL Eos # (Auto) (0-0.5) K/uL Baso # (Auto) (0-0.2) K/uL Immature Gran # (Auto) (0.00-0.02) K/uL Platelet Estimate (Normal) Pappenheimer Bodies Stomatocytes ESR (0-21) mm/hr PT (9.0-12.0) Seconds INR (0.9-1.1) APTT (21.0-31.0) Seconds PTT Ratio VBG pH (7.36-7.41) VBG pCO2 (38-50) mmHg VBG pO2 mmHg VBG HCO3 mmol/L VBG O2 Saturation % VBG Base Excess mEq/L Barometric Pressure mm/Hg Sodium (136-145) mmol/L Potassium (3.5-5.1) mmol/L Chloride (98-107) mmol/L Carbon Dioxide (21-32) mmol/L Anion Gap (3-11) BUN (7-18) mg/dl Creatinine (0.6-1.2) mg/dl Est Cr Clr Drug Dosing ml/min Est GFR ( Amer) Est GFR (Non-Af Amer) BUN/Creatinine Ratio (10-20) Glucose (70-99) mg/dl Estimat Average Glucose 91 mg/dl Hemoglobin A1c 4.8 (4.5-5.6) % Lactate 4.1 H* (0.4-2.0) mmol/L Calcium (8.5-10.1) mg/dl Phosphorus (2.5-4.9) mg/dl Magnesium (1.8-2.4) mg/dl Total Bilirubin (0.2-1) mg/dl Direct Bilirubin (0-0.2) mg/dl AST (15-37) U/L ALT (12-78) U/L Alkaline Phosphatase (45-117) U/L Ammonia (11-32) umol/L Total Creatine Kinase (26-192) U/L Troponin I (0-0.045) ng/ml C-Reactive Protein (0-0.29) mg/dl Total Protein (6.4-8.2) gm/dl Albumin (3.4-5.0) gm/dl Globulin (2.5-4.0) gm/dl Albumin/Globulin Ratio (0.9-2) Amylase (25-115) U/L Folate (>5.38) ng/ml Procalcitonin 0.09 (0-0.5) ng/ml Prolactin ng/ml HCG, Qual (Negative) Urine Color Urine Appearance (Clear) Urine pH (4.5-7.5) Ur Specific Rarden (1.000-1.030) Urine Protein (Negative) Urine Glucose (UA) (Negative) Urine Ketones (Negative) Urine Blood (Negative) Urine Nitrite (Negative) Urine Bilirubin (Negative) Urine Urobilinogen (Negative) Ur Leukocyte Esterase (Negative) Urine WBC (Auto) (0-5) /hpf Urine RBC (Auto) (0-4) /hpf U Hyaline Cast (Auto) (0-5) /lpf U Epithel Cells (Auto) (0-5) /lpf Urine Bacteria (Auto) (Negative) Salicylates (2.8-20) mg/dl Urine Opiates Screen (Neg) Ur Methadone, Qual (Neg) Acetaminophen (10-30) ug/ml Urine Barbiturates (Neg) Ur Phencyclidine (PCP) (Neg) U Amphetamin/Meth Scrn (Neg) MDMA (Ecstasy) Screen (Neg) U Benzodiazepines Scrn (Neg) Ur Cocaine Metabolite (Neg) U Marijuana (THC) Screen (Neg) Ethyl Alcohol mg/dL (0-3) mg/dl 12/19/19 12/19/19 12/19/19 Range/Units 15:43 15:43 13:02 WBC (4.8-10.8) K/uL RBC (4.2-5.4) M/uL Hgb (12.0-16.0) g/dL Hct (37-47) % MCV (80-100) fL MCH (25-34) pg MCHC (32-36) g/dL RDW Std Deviation (36.4-46.3) fL RDW Coeff of Meme (11.5-14.5) % Plt Count (130-400) K/uL MPV (7.4-10.4) fL Immature Gran % (Auto) % Neut % (Auto) % Lymph % (Auto) % Early % (Auto) % Eos % (Auto) % Baso % (Auto) % Neut # (Auto) (1.4-6.5) K/uL Lymph # (Auto) (1.2-3.4) K/uL Early # (Auto) (0.11-0.59) K/uL Eos # (Auto) (0-0.5) K/uL Baso # (Auto) (0-0.2) K/uL Immature Gran # (Auto) (0.00-0.02) K/uL Platelet Estimate (Normal) Pappenheimer Bodies Stomatocytes ESR 5 (0-21) mm/hr PT (9.0-12.0) Seconds INR (0.9-1.1) APTT (21.0-31.0) Seconds PTT Ratio VBG pH (7.36-7.41) VBG pCO2 (38-50) mmHg VBG pO2 mmHg VBG HCO3 mmol/L VBG O2 Saturation % VBG Base Excess mEq/L Barometric Pressure mm/Hg Sodium 137 (136-145) mmol/L Potassium 3.1 L (3.5-5.1) mmol/L Chloride 100 (98-107) mmol/L Carbon Dioxide TNP (21-32) mmol/L Anion Gap TNP (3-11) BUN 6 L (7-18) mg/dl Creatinine 0.70 (0.6-1.2) mg/dl Est Cr Clr Drug Dosing 112.2 ml/min Est GFR ( Amer) 132.9 Est GFR (Non-Af Amer) 114.6 BUN/Creatinine Ratio 9.1 L (10-20) Glucose 101 H (70-99) mg/dl Estimat Average Glucose mg/dl Hemoglobin A1c (4.5-5.6) % Lactate (0.4-2.0) mmol/L Calcium 7.7 L (8.5-10.1) mg/dl Phosphorus 2.6 (2.5-4.9) mg/dl Magnesium 1.9 (1.8-2.4) mg/dl Total Bilirubin 1.4 H (0.2-1) mg/dl Direct Bilirubin (0-0.2) mg/dl AST 166 H (15-37) U/L ALT 42 (12-78) U/L Alkaline Phosphatase 301 H (45-117) U/L Ammonia (11-32) umol/L Total Creatine Kinase (26-192) U/L Troponin I (0-0.045) ng/ml C-Reactive Protein 0.84 H (0-0.29) mg/dl Total Protein 5.7 L (6.4-8.2) gm/dl Albumin 2.0 L (3.4-5.0) gm/dl Globulin 3.7 (2.5-4.0) gm/dl Albumin/Globulin Ratio 0.5 L (0.9-2) Amylase (25-115) U/L Folate (>5.38) ng/ml Procalcitonin (0-0.5) ng/ml Prolactin 4.43 ng/ml HCG, Qual (Negative) Urine Color Urine Appearance (Clear) Urine pH (4.5-7.5) Ur Specific Rarden (1.000-1.030) Urine Protein (Negative) Urine Glucose (UA) (Negative) Urine Ketones (Negative) Urine Blood (Negative) Urine Nitrite (Negative) Urine Bilirubin (Negative) Urine Urobilinogen (Negative) Ur Leukocyte Esterase (Negative) Urine WBC (Auto) (0-5) /hpf Urine RBC (Auto) (0-4) /hpf U Hyaline Cast (Auto) (0-5) /lpf U Epithel Cells (Auto) (0-5) /lpf Urine Bacteria (Auto) (Negative) Salicylates (2.8-20) mg/dl Urine Opiates Screen (Neg) Ur Methadone, Qual (Neg) Acetaminophen (10-30) ug/ml Urine Barbiturates (Neg) Ur Phencyclidine (PCP) (Neg) U Amphetamin/Meth Scrn (Neg) MDMA (Ecstasy) Screen (Neg) U Benzodiazepines Scrn (Neg) Ur Cocaine Metabolite (Neg) U Marijuana (THC) Screen (Neg) Ethyl Alcohol mg/dL (0-3) mg/dl 12/19/19 12/19/19 12/19/19 Range/Units 13:02 13:02 13:02 WBC (4.8-10.8) K/uL RBC (4.2-5.4) M/uL Hgb (12.0-16.0) g/dL Hct (37-47) % MCV (80-100) fL MCH (25-34) pg MCHC (32-36) g/dL RDW Std Deviation (36.4-46.3) fL RDW Coeff of Meme (11.5-14.5) % Plt Count (130-400) K/uL MPV (7.4-10.4) fL Immature Gran % (Auto) % Neut % (Auto) % Lymph % (Auto) % Early % (Auto) % Eos % (Auto) % Baso % (Auto) % Neut # (Auto) (1.4-6.5) K/uL Lymph # (Auto) (1.2-3.4) K/uL Early # (Auto) (0.11-0.59) K/uL Eos # (Auto) (0-0.5) K/uL Baso # (Auto) (0-0.2) K/uL Immature Gran # (Auto) (0.00-0.02) K/uL Platelet Estimate (Normal) Pappenheimer Bodies Stomatocytes ESR (0-21) mm/hr PT (9.0-12.0) Seconds INR (0.9-1.1) APTT (21.0-31.0) Seconds PTT Ratio VBG pH 7.42 H (7.36-7.41) VBG pCO2 38 (38-50) mmHg VBG pO2 38 mmHg VBG HCO3 24 mmol/L VBG O2 Saturation 70.0 % VBG Base Excess 0 mEq/L Barometric Pressure 733.2 mm/Hg Sodium (136-145) mmol/L Potassium (3.5-5.1) mmol/L Chloride (98-107) mmol/L Carbon Dioxide (21-32) mmol/L Anion Gap (3-11) BUN (7-18) mg/dl Creatinine (0.6-1.2) mg/dl Est Cr Clr Drug Dosing ml/min Est GFR ( Amer) Est GFR (Non-Af Amer) BUN/Creatinine Ratio (10-20) Glucose (70-99) mg/dl Estimat Average Glucose mg/dl Hemoglobin A1c (4.5-5.6) % Lactate (0.4-2.0) mmol/L Calcium (8.5-10.1) mg/dl Phosphorus (2.5-4.9) mg/dl Magnesium (1.8-2.4) mg/dl Total Bilirubin (0.2-1) mg/dl Direct Bilirubin (0-0.2) mg/dl AST (15-37) U/L ALT (12-78) U/L Alkaline Phosphatase (45-117) U/L Ammonia (11-32) umol/L Total Creatine Kinase (26-192) U/L Troponin I (0-0.045) ng/ml C-Reactive Protein (0-0.29) mg/dl Total Protein (6.4-8.2) gm/dl Albumin (3.4-5.0) gm/dl Globulin (2.5-4.0) gm/dl Albumin/Globulin Ratio (0.9-2) Amylase (25-115) U/L Folate (>5.38) ng/ml Procalcitonin (0-0.5) ng/ml Prolactin ng/ml HCG, Qual Negative (Negative) Urine Color Urine Appearance (Clear) Urine pH (4.5-7.5) Ur Specific Rarden (1.000-1.030) Urine Protein (Negative) Urine Glucose (UA) (Negative) Urine Ketones (Negative) Urine Blood (Negative) Urine Nitrite (Negative) Urine Bilirubin (Negative) Urine Urobilinogen (Negative) Ur Leukocyte Esterase (Negative) Urine WBC (Auto) (0-5) /hpf Urine RBC (Auto) (0-4) /hpf U Hyaline Cast (Auto) (0-5) /lpf U Epithel Cells (Auto) (0-5) /lpf Urine Bacteria (Auto) (Negative) Salicylates (2.8-20) mg/dl Urine Opiates Screen (Neg) Ur Methadone, Qual (Neg) Acetaminophen (10-30) ug/ml Urine Barbiturates (Neg) Ur Phencyclidine (PCP) (Neg) U Amphetamin/Meth Scrn (Neg) MDMA (Ecstasy) Screen (Neg) U Benzodiazepines Scrn (Neg) Ur Cocaine Metabolite (Neg) U Marijuana (THC) Screen (Neg) Ethyl Alcohol mg/dL 32.0 H (0-3) mg/dl 12/19/19 12/19/19 12/19/19 Range/Units 13:02 13:02 13:02 WBC (4.8-10.8) K/uL RBC (4.2-5.4) M/uL Hgb (12.0-16.0) g/dL Hct (37-47) % MCV (80-100) fL MCH (25-34) pg MCHC (32-36) g/dL RDW Std Deviation (36.4-46.3) fL RDW Coeff of Meme (11.5-14.5) % Plt Count (130-400) K/uL MPV (7.4-10.4) fL Immature Gran % (Auto) % Neut % (Auto) % Lymph % (Auto) % Early % (Auto) % Eos % (Auto) % Baso % (Auto) % Neut # (Auto) (1.4-6.5) K/uL Lymph # (Auto) (1.2-3.4) K/uL Early # (Auto) (0.11-0.59) K/uL Eos # (Auto) (0-0.5) K/uL Baso # (Auto) (0-0.2) K/uL Immature Gran # (Auto) (0.00-0.02) K/uL Platelet Estimate (Normal) Pappenheimer Bodies Stomatocytes ESR (0-21) mm/hr PT (9.0-12.0) Seconds INR (0.9-1.1) APTT (21.0-31.0) Seconds PTT Ratio VBG pH (7.36-7.41) VBG pCO2 (38-50) mmHg VBG pO2 mmHg VBG HCO3 mmol/L VBG O2 Saturation % VBG Base Excess mEq/L Barometric Pressure mm/Hg Sodium 137 (136-145) mmol/L Potassium 3.2 L (3.5-5.1) mmol/L Chloride 97 L (98-107) mmol/L Carbon Dioxide 25 (21-32) mmol/L Anion Gap 15.0 H (3-11) BUN 7 (7-18) mg/dl Creatinine 0.79 (0.6-1.2) mg/dl Est Cr Clr Drug Dosing 99.4 ml/min Est GFR ( Amer) 114.8 Est GFR (Non-Af Amer) 99.1 BUN/Creatinine Ratio 8.3 L (10-20) Glucose 132 H (70-99) mg/dl Estimat Average Glucose mg/dl Hemoglobin A1c (4.5-5.6) % Lactate (0.4-2.0) mmol/L Calcium 8.3 L (8.5-10.1) mg/dl Phosphorus (2.5-4.9) mg/dl Magnesium 1.6 L (1.8-2.4) mg/dl Total Bilirubin 1.5 H (0.2-1) mg/dl Direct Bilirubin (0-0.2) mg/dl AST 207 H (15-37) U/L ALT 50 (12-78) U/L Alkaline Phosphatase 392 H (45-117) U/L Ammonia < 10.0 L (11-32) umol/L Total Creatine Kinase 66 (26-192) U/L Troponin I < 0.015 (0-0.045) ng/ml C-Reactive Protein (0-0.29) mg/dl Total Protein 7.1 (6.4-8.2) gm/dl Albumin 2.5 L (3.4-5.0) gm/dl Globulin 4.6 H (2.5-4.0) gm/dl Albumin/Globulin Ratio 0.5 L (0.9-2) Amylase (25-115) U/L Folate (>5.38) ng/ml Procalcitonin (0-0.5) ng/ml Prolactin ng/ml HCG, Qual (Negative) Urine Color Urine Appearance (Clear) Urine pH (4.5-7.5) Ur Specific Rarden (1.000-1.030) Urine Protein (Negative) Urine Glucose (UA) (Negative) Urine Ketones (Negative) Urine Blood (Negative) Urine Nitrite (Negative) Urine Bilirubin (Negative) Urine Urobilinogen (Negative) Ur Leukocyte Esterase (Negative) Urine WBC (Auto) (0-5) /hpf Urine RBC (Auto) (0-4) /hpf U Hyaline Cast (Auto) (0-5) /lpf U Epithel Cells (Auto) (0-5) /lpf Urine Bacteria (Auto) (Negative) Salicylates < 1.7 L (2.8-20) mg/dl Urine Opiates Screen (Neg) Ur Methadone, Qual (Neg) Acetaminophen < 2 L (10-30) ug/ml Urine Barbiturates (Neg) Ur Phencyclidine (PCP) (Neg) U Amphetamin/Meth Scrn (Neg) MDMA (Ecstasy) Screen (Neg) U Benzodiazepines Scrn (Neg) Ur Cocaine Metabolite (Neg) U Marijuana (THC) Screen (Neg) Ethyl Alcohol mg/dL (0-3) mg/dl 12/19/19 12/19/19 12/19/19 Range/Units 13:02 13:02 13:02 WBC 8.67 (4.8-10.8) K/uL RBC 3.98 L (4.2-5.4) M/uL Hgb 13.3 (12.0-16.0) g/dL Hct 38.2 (37-47) % MCV 96.0 (80-100) fL MCH 33.4 (25-34) pg MCHC 34.8 (32-36) g/dL RDW Std Deviation 43.3 (36.4-46.3) fL RDW Coeff of Meme 12.4 (11.5-14.5) % Plt Count 89 L (130-400) K/uL MPV 8.8 (7.4-10.4) fL Immature Gran % (Auto) 0.2 % Neut % (Auto) 84.3 % Lymph % (Auto) 5.5 % Early % (Auto) 10.0 % Eos % (Auto) 0.0 % Baso % (Auto) 0.0 % Neut # (Auto) 7.25 H (1.4-6.5) K/uL Lymph # (Auto) 0.47 L (1.2-3.4) K/uL Early # (Auto) 0.86 H (0.11-0.59) K/uL Eos # (Auto) 0.00 (0-0.5) K/uL Baso # (Auto) 0.00 (0-0.2) K/uL Immature Gran # (Auto) 0.02 (0.00-0.02) K/uL Platelet Estimate Decreased L (Normal) Pappenheimer Bodies Stomatocytes ESR (0-21) mm/hr PT 12.2 H (9.0-12.0) Seconds INR 1.2 H (0.9-1.1) APTT 31.1 H (21.0-31.0) Seconds PTT Ratio 1.1 VBG pH (7.36-7.41) VBG pCO2 (38-50) mmHg VBG pO2 mmHg VBG HCO3 mmol/L VBG O2 Saturation % VBG Base Excess mEq/L Barometric Pressure mm/Hg Sodium (136-145) mmol/L Potassium (3.5-5.1) mmol/L Chloride (98-107) mmol/L Carbon Dioxide (21-32) mmol/L Anion Gap (3-11) BUN (7-18) mg/dl Creatinine (0.6-1.2) mg/dl Est Cr Clr Drug Dosing ml/min Est GFR ( Amer) Est GFR (Non-Af Amer) BUN/Creatinine Ratio (10-20) Glucose (70-99) mg/dl Estimat Average Glucose mg/dl Hemoglobin A1c (4.5-5.6) % Lactate 8.2 H* (0.4-2.0) mmol/L Calcium (8.5-10.1) mg/dl Phosphorus (2.5-4.9) mg/dl Magnesium (1.8-2.4) mg/dl Total Bilirubin (0.2-1) mg/dl Direct Bilirubin (0-0.2) mg/dl AST (15-37) U/L ALT (12-78) U/L Alkaline Phosphatase (45-117) U/L Ammonia (11-32) umol/L Total Creatine Kinase (26-192) U/L Troponin I (0-0.045) ng/ml C-Reactive Protein (0-0.29) mg/dl Total Protein (6.4-8.2) gm/dl Albumin (3.4-5.0) gm/dl Globulin (2.5-4.0) gm/dl Albumin/Globulin Ratio (0.9-2) Amylase (25-115) U/L Folate (>5.38) ng/ml Procalcitonin (0-0.5) ng/ml Prolactin ng/ml HCG, Qual (Negative) Urine Color Urine Appearance (Clear) Urine pH (4.5-7.5) Ur Specific Rarden (1.000-1.030) Urine Protein (Negative) Urine Glucose (UA) (Negative) Urine Ketones (Negative) Urine Blood (Negative) Urine Nitrite (Negative) Urine Bilirubin (Negative) Urine Urobilinogen (Negative) Ur Leukocyte Esterase (Negative) Urine WBC (Auto) (0-5) /hpf Urine RBC (Auto) (0-4) /hpf U Hyaline Cast (Auto) (0-5) /lpf U Epithel Cells (Auto) (0-5) /lpf Urine Bacteria (Auto) (Negative) Salicylates (2.8-20) mg/dl Urine Opiates Screen (Neg) Ur Methadone, Qual (Neg) Acetaminophen (10-30) ug/ml Urine Barbiturates (Neg) Ur Phencyclidine (PCP) (Neg) U Amphetamin/Meth Scrn (Neg) MDMA (Ecstasy) Screen (Neg) U Benzodiazepines Scrn (Neg) Ur Cocaine Metabolite (Neg) U Marijuana (THC) Screen (Neg) Ethyl Alcohol mg/dL (0-3) mg/dl
[2019-12-20] MEDS ORDERED: POTASSIUM PHOS 3 MMOL/1 ML INFUSION IV STA (09:17)
[2019-12-20] MEDS ORDERED: POTASSIUM PHOSPHATE 24 MMOL in SODIUM CHLORIDE 0.9% 500 ML IV ONE (09:30)
[2019-12-20] MEDS ORDERED: POTASSIUM CHLORIDE / WTR 10 MEQ/100 ML PLCT IV ONE (09:30)
--- NOTE | 2019-12-20 09:44 | Psychiatric Consultation ---
Date of Consultation December 20, 2019 Impression / Recommendations Impression Dr. Chelsea Goodwin was directly involved in review and discussion of the patient's case and participated in medical decision making regarding treatment recommendations. RECOMMENDATIONS: 12/19 - Psychiatric consultation requested by hospitalist service to evaluate the patient for medication misuse versus intentional overdose. Pt had told our liaison last evening that there was no suicidal intent behind her use of hydroxyzine. - Pt admits to increased use of hydroxyzine over the past several days, related to increased anxiety and alcohol withdrawal symptoms. Her reports are r ather vague when asked to quantify the amount used on average each day. She adamantly denies taking a significant number of pills all at one time and denies suicidal ideation. Pt clearly denies that this was a suicide attempt. No recommendations for medication adjustments at this time. - It is certainly recommended that collateral information be obtained from the roommate regarding any suicidal statements or acute mood/safety concerns. The patient, however, is declining to sign releases for our service to speak with anyone other than outpatient providers. - Staff has been informed by our liaison that [place] police are to be notified when patient is ready for discharge, as she is to be released to their custody. - Pt is hoping to continue to meet with Dr. Polk for psychiatric medication management (will coordinate care and fax consultation note). She reports she is considering inpatient D&A rehab, but has at least been attempting to be seen at [facility] for either individual D&A counseling or for IOP. Of course, this is all dependent on recent charges as patient is being discharged to police. Psych History Identifying Data 34-year-old female admitted medically after presenting to the ED via EMS for concerns related to alcohol withdrawal, probable seizures, and possible medication overuse versus overdose. Psychiatric consultation was requested by hospitalist service to evaluate patient for medication misuse with possibility of intentional overdose. Chief Complaint "I've been better..." History of Present Illness Ana Wooten is a 34-year-old female admitted medically on 12/19/2019 after presenting to the ED via EMS for concerns related to alcohol withdrawal, probable seizure, and possible medication overuse/overdose. It is reported that patient had been attempted to detox from alcohol abuse at home, and was requiring excessive assistance from her roommate to bring food. She had been encouraged to go to the doctor, but did not. It was reported that EMS were called after patient had fallen and was presumed to have had a seizure. Concern was also verbalized regarding the assumption that a large quantity of hydroxyzine 50mg tablets had been consumed over the course of only a few days. Psychiatric consultation was requested to evaluate patient for medication misuse versus overdose. Pt was cooperative with psychiatric assessment, but did appear sedated. She reports that she had been taking Suboxone previous, and noticed an increase in alcohol use related to attempting to discontinue Suboxone. Pt states most recently she has been consuming a fifth of vodka daily, for at least the past week. Pt states she has been hospitalized in the past for pancreatitis and alcohol withdrawal. Pt is aware that her roommate was concerned about medication misuse. She reports that she had just recently be prescribed the hydroxyzine for anxiety, and has found the medication helpful in the past. Pt admits that her anxiety was increased in the setting of alcohol withdrawal, and states "I may have taken several extra doses." Pt states that her understanding of the instructions was "I could take a couple up to three times a day as needed, and maybe I had taken a few more." Pt consistently reports taking the medication for anxiety, and denies consuming a significant amount of the prescription all at one time. Pt adamantly denies SI, and states she was not trying to end her life. Pt states that generally, her psychotropic medication regimen has been effective and denies desire for any medication adjustments. Pt denies safety concerns at this time and continues to deny SI. Pt states she is "considering" inpatient D&A rehab. She had already been engaged in conversation with [facility], but reports she missed her appointment. Pt reports desire to follow-up with [facility] herself. She denies other needs from our service at this time. Past Psychiatric History Outpatient Services: Psychiatrist - Dr. Polk - [facility] Had attempted to get outpatient therapy through [facility] recently Previous Psych Admissions: Denied History of Previous Suicide Attempt: No Allergies Allergy/AdvReac Type Severity Reaction Status Date / Time Penicillins Allergy Intermediate HIVES Verified 12/19/19 13:53 Home Medications Home Medications Medication Instructions Recorded Confirmed Type bupropion HCl [Wellbutrin SR] 300 mg PO DAILY 08/26/19 12/19/19 History venlafaxine 300 mg PO DAILY 09/03/19 12/19/19 History gabapentin 100 mg PO TID 30 Days #90 cap 09/11/19 12/19/19 Rx hydroxyzine pamoate [Vistaril] 50 mg PO TID 12/19/19 12/19/19 History Substance Abuse History Pt is a current everyday smoker. She has been consuming a fifth of vodka daily for at least the past week. Pt states increased alcohol use has been related to attempts to wean off of Suboxone (last Rx from 01/2019). Pt denies other substance use. Personal History Living Arrangements: Home (with roommate) History of Legal Problems: - Charges from 03/2019 for DUI, driving without a license, careless/reckless driving, etc. Previous charges from 05/2016 for harassment - all through [facility]. - There is reportedly an active warrant out of [facility] presently. Patient History Medical History Alcoholism No significant active problems Surgical History S/P appendectomy S/P ERCP Social History Smoking Status: Current every day smoker Second Hand Exposure: Yes; Do You Dip or Chew Tobacco: No; Hx Alcohol Use: Yes Alcohol type: hard liquor Hx Substance Use: No Preferred Language: Mohawk Communication Ability: Effective Lactation Nurse Required: No marital status: Single Current Living Situation: Other Feels Safe at Home: Yes Safety Concerns: Feels Safe At This Time Assistive Devices: None Physical Exam Psychiatric: Orientation: alert, oriented x 3 and + guarded (superficially cooperative ) Apperance: appropriately dressed and + disheveled; + did not appear stated age (appearing older than stated age) female, appearing sedated but in no acute distress. Appropriately dressed in hospital gown. Short, strawberry blonde hair appears unkempt. Eye Contact: + fair eye contact Motor Behavior: no abnormal motor movements (observed while laying in bed) Speech: + abnormal rate/rhythm/volume of speech (soft volume, speech occasionally muffled (due to sedation)) Affect: + blunted affect Mood: + anxious mood Thought Process: goal directed thought process and + concrete thought process Thought Content: reality based without delusions; no hopelessness and no worthlessness Suicidal Thoughts: denies suicidal thoughts, denies suicidal plan and denies suicidal intent Pt adamantly denies she took excessive hydroxyzine as a suicide attempt Homicidal Thoughts: denies homicidal thoughts Hallucinations: no auditory hallucinations and no visual hallucinations Cognition: attention grossly intact and language grossly intact; + recent memory not intact Insight: + limited insight Judgement: + limited judgement Vital Signs (Past 24 Hours): Last Vital Signs Temp 36.6 C 12/20/19 07:06 Pulse 125 H 12/20/19 07:06 Resp 18 12/20/19 07:06 BP 97/71 L 12/20/19 07:06 Pulse Ox 97 12/20/19 07:06 Review of Systems Constitutional: reports headache and dizziness Cardiovascular: denied Respiratory: denied Gastrointestinal: reports nausea Neurological: denied Psychiatric: denies symptoms other than stated above Total of at least 10 systems reviewed, pertinent positives as above and in HPI. Results & Data (PSY) Medications Administered Chlordiazepoxide HCl (Chlordiazepoxide Hcl 25 Mg Cap) 25 mg PO Q6H LINDSAY; Taper Stop: 12/21/19 17:59 Last Admin: 12/20/19 05:10 Dose: 25 mg Documented by: [id number] Admin: 12/19/19 23:48 Dose: 25 mg Documented by: [id number] Admin: 12/19/19 18:25 Dose: 25 mg Documented by: [id number] Folic Acid (Folic Acid 1 Mg Tab) 1 mg PO QAM LINDSAY Stop: 01/18/20 08:59 Last Admin: 12/20/19 07:39 Dose: 1 mg Documented by: [id number] Admin: 12/19/19 18:24 Dose: 1 mg Documented by: [id number] Sodium Chloride (Nss 1000ml) 1,000 mls @ 80 mls/hr IV .[id number] LINDSAY Stop: 01/18/20 15:59 Last Admin: 12/20/19 05:09 Dose: 80 mls/hr Documented by: [id number] Infusion: 12/20/19 05:09 Dose: 80 mls/hr Documented by: [id number] Admin: 12/19/19 17:45 Dose: 80 mls/hr Documented by: [id number] Promethazine HCl 6.25 mg/ (Sodium Chloride) 50.25 mls @ 201 mls/hr IV Q6H PRN PRN Reason: Nausea And Vomiting Stop: 01/18/20 18:04 Last Infusion: 12/20/19 03:49 Dose: 0 mls/hr Documented by: [id number] Admin: 12/20/19 03:30 Dose: 201 mls/hr Documented by: [id number] Acetylcysteine 7,100 mg/ (Dextrose) 1,035.5 mls @ 64.719 mls/hr IV ONE ONE; Protocol Stop: 12/20/19 15:59 Last Admin: 12/20/19 03:34 Dose: 64.7 mls/hr Documented by: [id number] Lorazepam (Ativan) 1 mg in 2 mls @ 2 mls/min IV Q8H PRN PRN Reason: Agitation Stop: 01/18/20 20:40 Last Admin: 12/20/19 04:45 Dose: 2 mls/min Documented by: [id number] Ceftriaxone Sodium 1,000 mg/ (Dextrose) 50 mls @ 100 mls/hr IV Q24H [facility]; Protocol Stop: 12/21/19 21:59 Last Infusion: 12/19/19 23:38 Dose: 0 mls/hr Documented by: [id number] Admin: 12/19/19 22:55 Dose: 100 mls/hr Documented by: [id number] Metronidazole (Flagyl) 500 mg in 100 mls @ 100 mls/hr IV Q8H [facility] Stop: 12/21/19 22:59 Last Infusion: 12/20/19 07:14 Dose: 0 mls/hr Documented by: [id number] Admin: 12/20/19 06:51 Dose: 100 mls/hr Documented by: [id number] Infusion: 12/20/19 00:44 Dose: 0 mls/hr Documented by: [id number] Admin: 12/19/19 23:37 Dose: 100 mls/hr Documented by: [id number] Magnesium Oxide (Magnesium Oxide 400 Mg Tab) 400 mg PO QAM [facility] Stop: 01/18/20 16:14 Last Admin: 12/19/19 18:25 Dose: 400 mg Documented by: [id number] Potassium Phosphate (Pot Phosphate Monobasic W/ Sod Tab) 1 tab PO QID [facility] Stop: 12/21/19 09:00 Last Admin: 12/20/19 07:38 Dose: 1 tab Documented by: [id number] Admin: 12/19/19 21:39 Dose: 1 tab Documented by: [id number] Thiamine HCl (Thiamine Hcl 100 Mg Tab) 100 [facility] Stop: 01/18/20 08:59 Last Admin: 12/20/19 07:38 Dose: 100 mg Documented by: [id number] Admin: 12/19/19 18:24 Dose: 100 mg Documented by: [id number] Coding Level of Care Code 64279 [facility] Intl Hosp Care Lvl 2
[2019-12-20] MEDS: MAGNESIUM OXIDE 400 MG TAB PO SCH (10:41)
[2019-12-20] MEDS ORDERED: PANTOprazole 40 MG in SYRINGE 0 ML IV SCH (11:00)
--- NOTE | 2019-12-20 13:31 | Ultrasound Report ---
US duplex portal hepatic veins CLINICAL HISTORY: elevated LFTs COMPARISON STUDY: CT of the abdomen and pelvis December 19, 2019. TECHNIQUE: Color and duplex Doppler sonography of the major hepatic vessels was performed FINDINGS: The main, left and right portal veins are patent with appropriately directed flow. The midd le, left and right hepatic veins are patent. Loss of phasicity of the hepatic veins is noted. Hepatic artery is patent. IMPRESSION: Patent major hepatic vessels with appropriately directed flow. ACT 112: Negative or not required by law. Electronically signed by: Ronak Benavidez M.D. 12/20/2019 1:30 PM
--- NOTE | 2019-12-20 14:00 | Magnetic Resonance Report ---
MR MRCP CLINICAL HISTORY: Pancreatitis. History of pancreatic stent placement. Positive blood cultures. COMPARISON STUDY: CT scan dated 12/19/2019 FINDINGS: A breath-hold MRCP was performed. MIP images were acquired. The spleen is the upper limits of normal in size measuring 11.8 cm. There is hepatic steatosis. The liver is enlarged measuring 21 cm in length. No gallstones are visualized. There is no intra or extrahepatic biliary ductal dilatation. The common bile duct measures 2.6 mm. There are no filling defects to indicate ductal calculi. There is no pancreatic ductal dilatation. There is mild pancreatic parenchymal edema There is equivocal mild wall thickening involving the splenic flexure IMPRESSION: 1. Hepatic steatosis and hepatomegaly 2. No gallstones identified. 3. No evidence of biliary or pancreatic ductal dilatation. No filling defects identified to indicate calculi 4. Mild pancreatic parenchymal edema ACT 112: Negative or not required by law. Electronically signed by: Jerson Devi M.D. 12/20/2019 1:59 PM
--- NOTE | 2019-12-20 15:44 | Electrocardiogram Report ---
Test Reason : Blood Pressure : / mmHG Vent. Rate : 111 BPM Atrial Rate : 111 BPM P-R Int : 152 ms QRS Dur : 096 ms QT Int : 350 ms P-R-T Axes : 061 069 009 degrees QTc Int : 476 ms Sinus tachycardia RSR' or QR pattern in V1 suggests right ventricular conduction delay Cannot rule out Inferior infarct , age undetermined Abnormal ECG When compared with ECG of 03-OCT-2019 20:08, T wave inversion more evident in Inferior leads Nonspecific T wave abnormality now evident in Lateral leads Confirmed by Pepe Seth ([id number]) on 12/20/2019 3:43:55 PM Referred By: REFERRED SELF Confirmed By:Pepe Seth
--- NOTE | 2019-12-20 16:11 | Electrocardiogram Report ---
Test Reason : Blood Pressure : / mmHG Vent. Rate : 113 BPM Atrial Rate : 113 BPM P-R Int : 148 ms QRS Dur : 084 ms QT Int : 342 ms P-R-T Axes : 050 067 011 degrees QTc Int : 469 ms Sinus tachycardia Nonspecific ST and T wave abnormality Abnormal ECG When compared with ECG of 19-DEC-2019 13:38, (unconfirmed) No significant change was found Confirmed by Pepe Seth ([id number]) on 12/20/2019 4:10:43 PM Referred By: REFERRED SELF Confirmed By:Pepe Seth
[2019-12-20 16:34] LABS: Albumin Level 2.1 gm/dl (3.4-5.0); Bilirubin,Total 1.9 mg/dl (0.2-1); Total Protein 6.2 gm/dl (6.4-8.2)
--- NOTE | 2019-12-20 20:18 | Hospitalist Progress Note ---
Date of Service December 20, 2019 Assessment & Plan (1) Alcohol withdrawal seizure: Was brought to the ER after friend heard her fall, tremors on the floor with foaming in her mouth History of alcohol abuse Drank about 1 bottle of Vodka daily and reported last alcohol drink 1 and 1/2 week ago Not sure if pt is reliable about last alcohol drink was about 10days ago since her alcohol level was 32 Continue Librium and Ativan alcohol withdrawal protocol Will monitor closely for DT and seizure Counseling on alcohol cessation Neuro on board recommended MRI and EEG Pt was advised no driving until free of seizure for 6 months (2) Drug overdose: Denies any suicidal thought Pt reported that she was taking more Vistaril every few hours due to increase anxiety Case discussed with poison control [place] that recommended to continue N-Acetyl cysteine and repeat LFT later Recommended to get an EKG and if QRS greater than 120, will need 3 amps of bicarbonate Continue Benzo due to the tremor (3) Bacteremia: Blood cx positive for gram negative bacilli Continue IV Rocephin for now, will follow sensitivity Will repeat blood cx Continue monitor CBC (4) Prolonged Q-T interval on ECG: Admission QTc 476 and QRS 96 Will repeat EKG in am Continue monitor in tele Continue monitor electrolytes (5) Electrolyte abnormality: Mg on admission 1.6 Phosphate 0.9 and K 3.1 today Electrolytes replaced Continue monitor electrolytes (6) Elevated lactic acid level: likely from intoxication and poor oral intake at home and and possible seizure at home Continue IVF lactic acid normalized (7) Increased anion gap metabolic acidosis: Anion gap of 15 on presentation possible related to alcohol and dehydration Continue IVF Anion gap closed (8) Transaminitis: Possible related to Alcohol/drug overdose History of ERCP and stent placed in 2019, but never had a chance to follow up with GI with stent removal AST and ALK continue to increase 224 and 331 respectively Gastro on board MRCP done showed no gallstones identified. No evidence of biliary or pancreatic ductal dilatation. No filling defects identified to indicate calculi. Mild pancreatic parenchymal edema GI recommended to continue the N-Acetylcysteine for 24hr Continue monitor liver enzymes (9) Tobacco use: Counseling on smoking cessation DVT prophylaxis: SCDs CODE STATUS Full Code Roommate Chong [phone] Mother Lori [phone] Admission and Anticipated Discharge Date Admission Date: December 19, 2019 Subjective Pt was seen and examined Lying in bed with no distress Pt said that she feels very anxious She is asking for more ativan She is NPO and has been asking for food Pt said that she feels weak Denies any chest pain, palpitation, dizziness and SOB Physical Exam Physical Exam: General- No acute distress Head- atraumatic Eyes- PERRL, EOMI, ENT- oropharynx clear Neck- supple, no JVD Lungs- clear to auscultation Heart- +tachycardia Abdomen- normal bowel sounds, soft, nontender Extremities- no calf tenderness, +mild tremor Neuro- alert, oriented x 3; PERRL, EOMI; no facial palsy; no dysarthria Skin- warm & dry Results & Data Results & Data ([facility]) Vital Signs (Past 12 Hours) Vital Signs Temp Pulse Resp BP Pulse Ox Pulse Ox Pulse Ox 12/20/19 19:21 37.1 C 106 H 20 121/84 98 12/20/19 14:59 98 12/20/19 11:03 37.0 C 116 H 17 115/79 97 12/20/19 09:00 97
--- NOTE | 2019-12-20 21:11 | Consultation Report ---
DATE OF CONSULTATION: 12/20/2019 REASON FOR CONSULTATION: Possible seizure. HISTORY OF PRESENT ILLNESS: The patient is a 34-year-old presumably right-handed female with a history of psychiatric diagnosis and alcohol use. History is obtained from the chart as well as the patient who was found to be possibly somewhat inaccurate. She was found on the floor in her home yesterday, was said to be "postictal." She presented with EMS, but family members had arrived and they were concerned because the patient may have taken an overdose of some of her prescription medicine. She had had a prescription for hydroxyzine filled 3 days prior to admission for 90 tabs that was now empty. She has a history of chronic alcoholism. She reports that she drinks vodka almost daily. She indicates to myself that she discontinued drinking 1-1/2 to 2 weeks ago; however, her alcohol level is 32. She denies any use of illicit drugs. She indicates that she had been on Ativan, but that has not been used for over 2 months. She indicates for 10 days that she has had shakiness and diarrhea as if she was withdrawing from alcohol. She denies a prior history of seizure, no history of head injury, stroke, meningitis, or encephalitis. She has not had any headaches. She indicates compliance with outpatient medications. On reviewing Dr. Sales's note, it indicates that the patient's friend noted that he heard noise in the bathroom and found the patient had fallen down with tremors and foaming at the mouth. The hospitalist called poison control regarding a suspected Vistaril overdose. A Librium protocol was initiated. Poison control was called because of transaminitis in the context of possible drug overdose that N-acetylcysteine infusion should be started, even though the patient has negative acetaminophen levels in case there is prior acetaminophen metabolized already, also recommended trending the AST, ALT and PT, PTT 12 hours into the infusion. The patient indicates she is feeling somewhat improved. Psychiatry has interviewed the patient and made no additional recommendations for medication and recommended drug and alcohol counseling. They also corroborated a history of increased alcohol use associated with attempts to wean off Suboxone with the last prescription for Suboxone being 01/2019. PAST MEDICAL HISTORY: Otherwise notable for alcoholism. PAST SURGICAL HISTORY: Appendectomy, ERCP. SOCIAL HISTORY: Current everyday smoker. Alcohol, vodka last 1-1/2 to 2 weeks ago, although tox screen is positive. FAMILY HISTORY: Notable for mother with diabetes. ALLERGIES: PENICILLIN. HOME MEDICATIONS: Wellbutrin SR 300 mg daily, venlafaxine 300 mg, gabapentin 100 mg t.i.d. (patient states she has been compliant) and hydroxyzine. LABORATORY DATA: CT of the head, noncontrast, which I have reviewed, is unremarkable. Cervical spine CT shows no evidence of fracture. White count 8.6, H and H 13.3/38, platelet count 89. PT 12.2, PTT 31.1. Electrolytes notable for a lactate of 2.3, calcium of 8.2, magnesium of 2.6, total bilirubin of 1.8, AST 180, alkaline phosphatase 333. Ammonia less than 10. CK 66. CRP 0.84. Total protein 6.2, albumin 2.2. Folate greater than 24. Procalcitonin normal. Prolactin normal. Urinalysis notable for 1+ blood, positive nitrites, 2+ leukocyte esterase. Tox screen negative. Ethyl alcohol 32. PHYSICAL EXAMINATION: VITAL SIGNS: Notable for heart rate ranging from 106-123. The patient is afebrile, blood pressure 121/84. GENERAL: The patient is awake, alert, a little distractable and mildly to moderately disheveled. One is struck by bruising on her legs and her left hip. HEAD: Appears to be normocephalic, atraumatic. NEUROLOGIC: She is oriented x3. Pupils are dilated and minimally reactive. Optic nerve was normal on the right, difficult to visualize on the left secondary to noncooperation and distractibility. Summers were full, motility appeared normal without nystagmus. There is normal facial symmetry. Speech and language are normal. Motor 5/5, no drift. Normal rapid alternating movements. Strength appeared full in the lowers, although the patient had some difficulty following commands. Reflexes are symmetric, brisk in the lowers. Toes are downgoing. [id number] is mildly tremulous. [id number]-rx-wkgl is normal. Vibration is present at the toes and her gait appeared hesitant, but nondystaxic and stable. IMPRESSION AND PLAN: Witnessed seizure, recent alcohol use unclear, patient speaks of being abstinent for 1-1/2 to 2 weeks, but toxicology screen is positive for alcohol. This certainly could represent an alcohol withdrawal seizure, especially if the patient has markedly reduced the amount of alcohol intake recently. History giving is difficult. The patient could also be withdrawing from other medications, although she denies that she is withdrawing from narcotics or benzodiazepines and the toxicology screen is negative for the above. I would recommend an MRI of the brain with and without contrast and an EEG to make some determination as to whether or not the patient needs to be treated. If those are normal, then the patient does not need to be treated. We did discuss the role that alcohol and alcohol withdrawal may be playing here. Wellbutrin can lower seizure threshold and may need to be considered to be discontinued. However, the patient reports she has been on this for many years and it is one of the few things that has been helpful to her. If we could actually confirm a history of recent alcohol withdrawal, if the psychiatrist felt she must be on Wellbutrin, then it could theoretically be considered provided that there were no subsequent seizures while on Wellbutrin. The patient may not drive for 6 months. We will follow with you.
[2019-12-20] MEDS: cefTRIAXone SODIUM 1,000 MG in DEXTROSE 5% 50 ML IV SCH (21:28)
[2019-12-21] MEDS: LORazepam 1 MG/2 ML VIAL IV PRN ×4 (01:37→22:08)
[2019-12-21] MEDS ORDERED: GADOBUTROL 65ML VIAL IV ONE (02:44)
[2019-12-21] MEDS: chlordiazePOXIDE HCl 25 MG CAP PO SCH ×2 (03:06→11:15)
[2019-12-21] MEDS: SODIUM CHLORIDE 0.9% 1000ML 1,000 ML IV SCH ×2 (03:07→16:15)
[2019-12-21] MEDS: MAGNESIUM OXIDE 400 MG TAB PO SCH (07:49)
[2019-12-21] MEDS: POT PHOSPHATE MONOBASIC W/ SOD TAB PO SCH (07:49)
[2019-12-21] MEDS: THIAMINE HCL 100 MG TAB PO SCH (07:50)
[2019-12-21] MEDS: FOLIC ACID 1 MG TAB PO SCH (07:50)
[2019-12-21] MEDS: metroNIDAZOLE 500 MG/100 ML BAG IV SCH ×2 (07:51→16:12)
[2019-12-21 08:01] LABS: Hematocrit (blood only) 27.1 % (37-47); Hemoglobin 9.1 g/dL (12.0-16.0); Mean Corpuscular Hemoglobin 32.3 pg (25-34); Mean Corpuscular Hgb Conc 33.6 g/dL (32-36); Mean Corpuscular Volume 96.1 fL (80-100); RDW Coefficient of Variation 12.4 % (11.5-14.5); RDW Standard Deviation 43.9 fL (36.4-46.3); Red Blood Count 2.82 M/uL (4.2-5.4); White Blood Count 3.32 K/uL (4.8-10.8)
[2019-12-21 08:07] LABS: Mean Platelet Volume 10.3 fL (7.4-10.4); Platelet Count 61 K/uL (130-400)
--- NOTE | 2019-12-21 08:41 | Magnetic Resonance Report ---
MRI OF THE BRAIN COMBO CLINICAL HISTORY: Seizure. COMPARISON STUDY: CT of the brain dated 12/19/2019. TECHNIQUE: MRI of the brain was performed utilizing various T1 and T2-weighted sequences in the axial , sagittal, and coronal planes. Contrast-enhanced sequences were acquired following the administratio n of 7 cc of Gadavist. The examination is performed using the seizure protocol. FINDINGS: Brain parenchyma: The brain parenchyma is normal in appearance. There is no hemorrhage or mass effect . There is no restricted diffusion to suggest acute ischemia. No enhancing mass lesion is identified on the postcontrast images. Park-white matter differentiation is preserved. No extra-axial fluid herve ection is seen. The cerebellar tonsils are normal in configuration. Question bilateral hippocampal at rophy. The hippocampi are symmetric bilaterally with no abnormal FLAIR signal. Ventricles, sulci, and cisterns: Normal in configuration. Pituitary and sella: Unremarkable. Intracranial vasculature: Normal flow voids are maintained at the skull base. Orbits: The bony orbits are grossly intact. Orbital contents are normal in appearance. Sinuses and mastoids: Trace mucosal thickening is noted within the maxillary antra, the sphenoid sinu ses, and ethmoid sinuses. The mastoid air cells are clear. Calvarium: Unremarkable. Soft tissues: A 1.5 cm sebaceous cyst is noted in the posterior scalp. Cervical cord: Partially visualized cervical spinal cord is normal in morphology and signal intensity . IMPRESSION: 1. There is no acute intracranial abnormality. 2. Question mild bilateral atrophy of the hippocampi. This is of indeterminant significance and clini farnaz correlation will be required. ACT 112: Negative or not required by law. Electronically signed by: Felice Amato M.D. 12/21/2019 8:40 AM
[2019-12-21 08:48] LABS: Albumin Globulin Ratio 0.6 (0.9-2); Albumin Level 1.8 gm/dl (3.4-5.0); BUN Creatinine Ratio 3.9 (10-20); Bilirubin,Total 1.1 mg/dl (0.2-1); Calcium 7.9 mg/dl (8.5-10.1); Est GFR (African American) 146.5; Est GFR (Non-African American) 126.4; Globulin 3.2 gm/dl (2.5-4.0); Magnesium 1.9 mg/dl (1.8-2.4); Potassium 2.6 mmol/L (3.5-5.1)
[2019-12-21] MEDS ORDERED: POTASSIUM CHLORIDE CRTAB 20 MEQ TABCR PO ONE (09:00)
[2019-12-21] MEDS ORDERED: PANTOprazole 40 MG TAB PO SCH (09:00)
--- NOTE | 2019-12-21 09:15 | Gastroenterology Progress Note ---
Date of Service December 21, 2019 Assessment & Plan (1) Transaminitis: 34 year old female w/ history of ETOH abuse, pancreatitis w signs of ductal disruption, likely ETOH hepatitis s/p ERCP 08/28 w pancreatic duct stent placement, pancreatic sphincterectomy lost to OP follow up admitted w/ ongoing ETOH use, concern for ETOH withdrawal seizure and drug overdose prior to arrival - GI asked to evaluate given transaminitis. She is afebrile without leukocytosis and denies any abd pain, nausea/vomiting. While her PD stent is in place there is no evidence of ductal dilation on CTAP or MR. Hepatic Duplex negative. DDX discussed: pancreatitis, ETOH hep, DILI vs others. Maddrey DF 6.5, no current indication for steroid therapy. Diet as tolerated Antiemetics PRN Analgesia PRN Follow blood culture Can continue ABX for now ETOH cessation was recommended CIWA protocol Can continue NAC per 21 hr protocol Trend LFTs Will follow. Thank you for allowing us to participate in the care of this patient. Please call with any acute changes, questions or concerns. Please see addendum below with additional recommendation from my supervising physician. Admission and Anticipated Discharge Date Admission Date: December 19, 2019 Supervising Physician Co-Signing Physician Notes I have seen and examined the patient and discussed the management with YOMAIRA Baron. no acute events overnite. labs still with nonspecific drop in hgb likely from hydration, thrombocytopenia clinically improved though on pe sleeping today. labs reviewed Likely alcoholic hepatitis superimposed on alcoholic pancreatitis- slow improvement, can consider advancing diet slowly. Alcohol rehab considerations per primary team. It is in her best interest to avoid alcohol alltogether. Dispo per psych and primary team. Subjective Offers no complaints Tolerated clear liquids Very Hungry Wants regular food No abd pain No nausea/vomiting LFTs improving Duplex negative: Patent major hepatic vessels with appropriately directed flow. MRCP negative: Hepatic steatosis and hepatomegaly 2. No gallstones identified. 3. No evidence of biliary or pancreatic ductal dilatation. No filling defects identified to indicate calculi 4. Mild pancreatic parenchymal edema Review of Systems Constitutional: no fever, no chills and no fatigue Respiratory: no cough and no dyspnea Cardiovascular: no chest pain and no dyspnea Gastrointestinal: no abdominal pain, no nausea, no coffee ground emesis, no hematemesis, no dysphagia, no blood in stools and no melena Physical Exam 2 Constitutional: well nourished; no acute distress Neck: trachea midline Respiratory: normal respiratory effort Gastrointestinal (Abdomen): normal bowel sounds, soft, nontender, no hepatosplenomegaly Results & Data ([facility]) Vital Signs (Past 12 Hours) Vital Signs Temp Pulse Resp BP Pulse Ox 12/21/19 07:01 36.7 C 92 H 18 107/71 98 12/21/19 03:08 36.8 C 110 H 20 106/55 L 95 12/20/19 23:35 36.9 C 85 17 107/74 100
[2019-12-21] MEDS: POTASSIUM CHLORIDE / WTR 10 MEQ/100 ML PLCT IV SCH ×3 (09:56→12:36)
--- NOTE | 2019-12-21 13:04 | Electroencephalogram ---
EEG Procedure Note Date of Service December 21, 2019 Start / End Times Start Time: 07:57 End Time: 08:17 Referring Physician Roseann Bates MD History A 34-year-old female with possible seizure. EEG performed for evaluation of epileptiform activity. Home Medication List Home Medications Medication Instructions Recorded Confirmed Type bupropion HCl [Wellbutrin SR] 300 mg PO DAILY 08/26/19 12/19/19 History venlafaxine 300 mg PO DAILY 09/03/19 12/19/19 History gabapentin 100 mg PO TID 30 Days #90 cap 09/11/19 12/19/19 Rx hydroxyzine pamoate [Vistaril] 50 mg PO TID 12/19/19 12/19/19 History Inpatient Medication List Chlordiazepoxide HCl (Chlordiazepoxide Hcl 25 Mg Cap) 25 mg PO Q8H [facility]; Taper Stop: 12/21/19 17:59 Last Admin: 12/21/19 11:15 Dose: 25 mg Documented by: [id number] Admin: 12/21/19 03:06 Dose: 25 mg Documented by: [id number] Admin: 12/20/19 17:53 Dose: 25 mg Documented by: [id number] Admin: 12/20/19 12:16 Dose: 25 mg Documented by: [id number] Admin: 12/20/19 05:10 Dose: 25 mg Documented by: [id number] Admin: 12/19/19 23:48 Dose: 25 mg Documented by: [id number] Admin: 12/19/19 18:25 Dose: 25 mg Documented by: [id number] Folic Acid (Folic Acid 1 Mg Tab) 1 mg PO QAM [facility] Stop: 01/18/20 08:59 Last Admin: 12/21/19 07:50 Dose: 1 mg Documented by: [id number] Admin: 12/20/19 07:39 Dose: 1 mg Documented by: [id number] Admin: 12/19/19 18:24 Dose: 1 mg Documented by: [id number] Sodium Chloride (Nss 1000ml) 1,000 mls @ 80 mls/hr IV .[id number] [facility] Stop: 01/18/20 15:59 Last Admin: 12/21/19 03:07 Dose: 80 mls/hr Documented by: [id number] Infusion: 12/21/19 03:07 Dose: 80 mls/hr Documented by: [id number] Admin: 12/20/19 19:19 Dose: 80 mls/hr Documented by: [id number] Infusion: 12/20/19 17:39 Dose: 80 mls/hr Documented by: [id number] Admin: 12/20/19 05:09 Dose: 80 mls/hr Documented by: [id number] Infusion: 12/20/19 05:09 Dose: 80 mls/hr Documented by: [id number] Admin: 12/19/19 17:45 Dose: 80 mls/hr Documented by: [id number] Promethazine HCl 6.25 mg/ (Sodium Chloride) 50.25 mls @ 201 mls/hr IV Q6H PRN PRN Reason: Nausea And Vomiting Stop: 01/18/20 18:04 Last Infusion: 12/20/19 03:49 Dose: 0 mls/hr Documented by: [id number] Admin: 12/20/19 03:30 Dose: 201 mls/hr Documented by: [id number] Ceftriaxone Sodium 1,000 mg/ (Dextrose) 50 mls @ 100 mls/hr IV Q24H [facility]; Protocol Stop: 12/21/19 21:59 Last Infusion: 12/20/19 22:17 Dose: 0 mls/hr Documented by: [id number] Admin: 12/20/19 21:28 Dose: 100 mls/hr Documented by: [id number] Infusion: 12/19/19 23:38 Dose: 0 mls/hr Documented by: [id number] Admin: 12/19/19 22:55 Dose: 100 mls/hr Documented by: [id number] Metronidazole (Flagyl) 500 mg in 100 mls @ 100 mls/hr IV Q8H [facility] Stop: 12/21/19 22:59 Last Infusion: 12/21/19 09:32 Dose: 0 mls/hr Documented by: [id number] Admin: 12/21/19 07:51 Dose: 100 mls/hr Documented by: [id number] Infusion: 12/21/19 01:39 Dose: 0 mls/hr Documented by: [id number] Admin: 12/20/19 23:57 Dose: 100 mls/hr Documented by: [id number] Infusion: 12/20/19 16:57 Dose: 0 mls/hr Documented by: [id number] Admin: 12/20/19 15:57 Dose: 100 mls/hr Documented by: [id number] Infusion: 12/20/19 15:00 Dose: 100 mls/hr Documented by: [id number] Infusion: 12/20/19 14:22 Dose: 100 mls/hr Documented by: [id number] Infusion: 12/20/19 07:14 Dose: 0 mls/hr Documented by: [id number] Admin: 12/20/19 06:51 Dose: 100 mls/hr Documented by: [id number] Infusion: 12/20/19 00:44 Dose: 0 mls/hr Documented by: [id number] Admin: 12/19/19 23:37 Dose: 100 mls/hr Documented by: [id number] Lorazepam (Ativan) 1 mg in 2 mls @ 2 mls/min IV Q6H PRN PRN Reason: Agitation Stop: 01/18/20 20:40 Last Admin: 12/21/19 08:03 Dose: 2 mls/min Documented by: [id number] Admin: 12/21/19 01:37 Dose: 2 mls/min Documented by: [id number] Admin: 12/20/19 19:20 Dose: 2 mls/min Documented by: [id number] Magnesium Oxide (Magnesium Oxide 400 Mg Tab) [facility] [place]: 01/18/20 16:14 Last Admin: 12/21/19 07:49 Dose: 400 mg Documented by: [id number] Admin: 12/20/19 10:41 Dose: 400 mg Documented by: [id number] Admin: 12/19/19 18:25 Dose: 400 mg Documented by: [id number] Pantoprazole Sodium (Pantoprazole 40 Mg Tab) 40 mg PO QAM [facility] Stop: 01/20/20 08:59 Last Admin: 12/21/19 07:51 Dose: 40 mg Documented by: [id number] Thiamine HCl (Thiamine Hcl 100 Mg Tab) 100 mg PO QA [facility] Stop: 01/18/20 08:59 Last Admin: 12/21/19 07:50 Dose: 100 mg Documented by: [id number] Admin: 12/20/19 07:38 Dose: 100 mg Documented by: [id number] Admin: 12/19/19 18:24 Dose: 100 mg Documented by: [id number] Discontinued Medications Gadobutrol (Gadobutrol 65ml Vial) 7 ml IV ONCE ONE Stop: 12/21/19 02:45 Last Admin: 12/21/19 02:28 Dose: 7 ml Documented by: [id number] Multivitamins 10 ml/ Thiamine HCl 100 mg/ Folic Acid 1 mg/Sodium Chloride 1,011.2 mls @ 1,011.2 mls/hr IV .Q1H ONE Stop: 12/19/19 13:53 Last Infusion: 12/19/19 14:41 Dose: 0 mls/hr Documented by: [id number] Admin: 12/19/19 13:39 Dose: 1,011.2 mls/hr Documented by: [id number] Lorazepam (Ativan) 1 mg in 2 mls @ 2 mls/min IV NOW STA Stop: 12/19/19 12:55 Last Admin: 12/19/19 13:04 Dose: 2 mls/min Documented by: [id number] Magnesium Sulfate/Dextrose (Magnesium Sulfate / D5w) 1 gm in 100 mls @ 100 mls/hr IV Q1H [facility] Stop: 12/19/19 15:53 Last Infusion: 12/19/19 18:10 Dose: 0 mls/hr Documented by: [id number] Admin: 12/19/19 16:07 Dose: 100 mls/hr Documented by: [id number] Infusion: 12/19/19 16:07 Dose: 100 mls/hr Documented by: [id number] Admin: 12/19/19 15:08 Dose: 100 mls/hr Documented by: [id number] Lactated Ringer's (Lr) 1,000 mls @ 999 mls/hr IV .Q1H1M ONE Stop: 12/19/19 14:54 Last Infusion: 12/19/19 16:06 Dose: 0 mls/hr Documented by: [id number] Admin: 12/19/19 15:05 Dose: 999 mls/hr Documented by: [id number] Lorazepam (Ativan) 1 mg in 2 mls @ 2 mls/min IV NOW STA Stop: 12/19/19 14:53 Last Admin: 12/19/19 15:05 Dose: 2 mls/min Documented by: [id number] Sodium Chloride (Nss 1000ml) 1,000 mls @ 999 mls/hr IV .Q1H1M ONE Stop: 12/19/19 17:44 Last Admin: 12/19/19 18:28 Dose: Not Given Documented by: [id number] Pantoprazole Sodium 40 mg/ (Syringe) 10 mls @ 5 mls/min IV DAILY@1100 [facility] Stop: 12/20/19 23:59 Last Admin: 12/20/19 14:05 Dose: 5 mls/min Documented by: [id number] Pantoprazole Sodium 40 mg/ (Syringe) 10 mls @ 5 mls/min IV NOW ONE Stop: 12/19/19 18:31 Last Admin: 12/19/19 18:25 Dose: 5 mls/min Documented by: [id number] Potassium Chloride (K Collins / Wtr) 10 meq in 100 mls @ 100 mls/hr IV Q1H [facility] Stop: 12/19/19 20:59 Last Infusion: 12/19/19 21:30 Dose: 0 mls/hr Documented by: [id number] Admin: 12/19/19 20:29 Dose: 100 mls/hr Documented by: [id number] Infusion: 12/19/19 19:30 Dose: 0 mls/hr Documented by: [id number] Admin: 12/19/19 18:26 Dose: 100 mls/hr Documented by: [id number] Acetylcysteine 10,650 mg/ (Dextrose) 253.25 mls @ 253.25 mls/hr IV NOW ONE; Protocol Stop: 12/19/19 19:59 Last Infusion: 12/19/19 22:45 Dose: 0 mls/hr Documented by: [id number] Admin: 12/19/19 21:45 Dose: 253.3 mls/hr Documented by: [id number] Acetylcysteine 3,550 mg/ (Dextrose) 517.75 mls @ 129.438 mls/hr IV ONE ONE; Protocol Stop: 12/19/19 23:59 Last Infusion: 12/20/19 02:51 Dose: 0 mls/hr Documented by: [id number] Admin: 12/19/19 22:50 Dose: 129.4 mls/hr Documented by: [id number] Acetylcysteine 7,100 mg/ (Dextrose) 1,035.5 mls @ 64.719 mls/hr IV ONE ONE; Protocol Stop: 12/20/19 15:59 Last Infusion: 12/20/19 21:30 Dose: 0 mls/hr Documented by: [id number] Admin: 12/20/19 03:34 Dose: 64.7 mls/hr Documented by: [id number] Lorazepam (Ativan) 1 mg in 2 mls @ 2 mls/min IV NOW STA Stop: 12/19/19 20:42 Last Admin: 12/19/19 21:39 Dose: 2 mls/min Documented by: [id number] Lorazepam (Ativan) 1 mg in 2 mls @ 2 mls/min IV Q8H PRN PRN Reason: Agitation Stop: 01/18/20 20:40 Last Admin: 12/20/19 14:05 Dose: 2 mls/min Documented by: [id number] Admin: 12/20/19 04:45 Dose: 2 mls/min Documented by: [id number] Potassium Chloride (K Collins / Wtr) 10 meq in 100 mls @ 100 mls/hr IV ONE ONE Stop: 12/20/19 10:29 Last Infusion: 12/20/19 13:16 Dose: 0 mls/hr Documented by: [id number] Admin: 12/20/19 12:16 Dose: 100 mls/hr Documented by: [id number] Potassium Phosphate 24 mmol/ (Sodium Chloride) 508 mls @ 127 mls/hr IV TODAY@0930 ONE Stop: 12/20/19 13:29 Last Infusion: 12/20/19 15:34 Dose: 0 mls/hr Documented by: [id number] Admin: 12/20/19 11:34 Dose: 127 mls/hr Documented by: [id number] Potassium Chloride (K Collins / Wtr) 10 meq in 100 mls @ 100 mls/hr IV Q1H [facility] Stop: 12/21/19 11:59 Last Admin: 12/21/19 12:36 Dose: 100 mls/hr Documented by: [id number] Infusion: 12/21/19 12:01 Dose: 100 mls/hr Documented by: [id number] Admin: 12/21/19 11:01 Dose: 100 mls/hr Documented by: [id number] Infusion: 12/21/19 10:56 Dose: 100 mls/hr Documented by: [id number] Admin: 12/21/19 09:56 Dose: 100 mls/hr Documented by: [id number] Ioversol (Ioversol 100ml) 94 ml IV ONCE ONE Stop: 12/19/19 20:06 Last Admin: 12/19/19 20:06 Dose: 94 ml Documented by: [id number] Potassium Chloride (Potassium Chloride 20 Meq Tabcr) 40 meq PO NOW STA Stop: 12/19/19 18:06 Last Admin: 12/19/19 18:24 Dose: 40 meq Documented by: [id number] Potassium Chloride (Potassium Chloride 20 Meq Tabcr) 40 meq PO NOW ONE Stop: 12/21/19 09:01 Last Admin: 12/21/19 10:03 Dose: 40 meq Documented by: [id number] Potassium Phosphate (Pot Phosphate Monobasic W/ Sod Tab) 1 tab PO QID [facility] Stop: 12/21/19 09:00 Last Admin: 12/21/19 07:49 Dose: 1 tab Documented by: [id number] Admin: 12/20/19 19:19 Dose: 1 tab Documented by: [id number] Admin: 12/20/19 17:52 Dose: 1 tab Documented by: [id number] Admin: 12/20/19 14:06 Dose: 1 tab Documented by: [id number] Admin: 12/20/19 07:38 Dose: 1 tab Documented by: [id number] Admin: 12/19/19 21:39 Dose: 1 tab Documented by: [id number] Description This is a 21 electrode EEG with a single channel dedicated to limited EKG. The electrodes were placed in accordance with the International 10-20 system. Report: At the onset of the EEG the patient is awake. The background is symmetric and well organized. The posterior dominant rhythm is 10-11 Hz. There is a normal anterior to posterior gradient with low amplitude beta activity in the frontal head regions. Photic stimulation does not induce any abnormalities. Drowsiness is characterized by increased theta activity, reduced blink rate, and decreased myogenic artifact. No stage 2 sleep transients are recorded. Impression: This is a normal awake and drowsy routine EEG. No focal slowing or epileptiform activity is recorded.
--- NOTE | 2019-12-21 17:25 | Progress Notes ---
DATE: 12/21/2019 SUBJECTIVE: I am seeing Mrs. Wooten in followup of what sounded like a seizure by description. Her MRI of the brain shows possible bilateral hippocampal atrophy. I have reviewed those images. EEG was normal. The patient has not had any recurrent events. Her blood cultures are positive for gram-negative bacilli. PHYSICAL EXAMINATION: VITAL SIGNS: Blood pressure 108/75, pulse 101, temperature 36.9 and O2 saturation within normal range GENERAL: The patient is awake and alert with normal speech and language. Her pupils are mildly dilated, but reactive. IMPRESSION AND PLAN: By description, this patient had a seizure, most likely it was related to alcohol withdrawal, cannot exclude drug withdrawal, although the patient does not give a history of the same. I find the MRI and EEG reassuring. I would elect not to treat. I did explain to the patient that she may not drive for 6 months. She needs to take precautions such as not operating any heavy or dangerous machinery, being at heights, bathing alone, swimming alone. I did explain to her that this is likely alcohol withdrawal related. I cannot exclude that Wellbutrin played a role. I have asked her to discuss with psychiatry whether or not the Wellbutrin should be continued or discontinued. The patient indicates she has always done extremely well on it and is hesitant to discontinue. Certainly if the history was clear i.e., there was absolutely known alcohol withdrawal, then the psychiatrist may feel more comfortable keeping her on Wellbutrin. We will sign off. [facility]
--- NOTE | 2019-12-21 18:38 | Hospitalist Progress Note ---
Date of Service December 21, 2019 Assessment & Plan (1) Alcohol withdrawal seizure: Was brought to the ER after friend heard her fall, tremors on the floor with foaming in her mouth History of alcohol abuse Drank about 1 bottle of Vodka daily and reported last alcohol drink 1 and 1/2 week ago Not sure if pt is reliable about last alcohol drink was about 10days ago since her alcohol level was 32 Continue Librium and Ativan alcohol withdrawal protocol Will monitor closely for DT and seizure Counseling on alcohol cessation Neuro on board Base on the description patient had a seizure as per Neuro mostly due to alcohol withdrawal seizure MRI showed no acute intracranial abnormality. EEG showed no focal slowing or epileptiform activity is recorded. Pt was advised no driving until free of seizure for 6 months Do not operating any heavy or dangerous machinery No swimming alone (2) Drug overdose: Denies any suicidal thought Pt reported that she was taking more Vistaril every few hours due to increase anxiety Case discussed with poison control Ly[place] that recommended to continue N- Acetylcysteine and repeat LFT later Recommended to get an EKG and if QRS greater than 120, will need 3 amps of bicarbonate Continue Benzo due to the tremor (3) Bacteremia: Blood cx positive for gram negative bacilli Continue IV Rocephin for now Follow up blood cx sensitivity Repeat blood cx collected and pending Might consider ID consult if ESBL on sensitivity Continue monitor CBC (4) Prolonged Q-T interval on ECG: Admission QTc 476 and QRS 96 QRS stable on EKG Continue monitor in tele Continue monitor electrolytes (5) Electrolyte abnormality: Mg on admission 1.6 Phosphate stable Potassium 2.6 today Potassium replaced Continue monitor electrolytes (6) Elevated lactic acid level: likely from intoxication and poor oral intake at home and and possible seizure at home On IVF, will d/c lactic acid normalized (7) Increased anion gap metabolic acidosis: Anion gap of 15 on presentation possible related to alcohol and dehydration Received IVF Anion gap closed (8) Transaminitis: Possible related to Alcohol/drug overdose History of ERCP and stent placed in 2019, but never had a chance to follow up with GI with stent removal AST improved from 224 to 160 and ALK from 331 to 276 Gastro on board MRCP done showed no gallstones identified. No evidence of biliary or pancreatic ductal dilatation. No filling defects identified to indicate calculi. Mild pancreatic parenchymal edema N-Acetylcysteine was discontinued since liver enzymes trending down Continue monitor liver enzymes Anemia Mostly due hydration/dilution Hgb 9.1 today Continue monitor CBC Thrombocytopenia Mostly related to alcohol abuse Platelet 61 today No sign of bleeding Continue monitor CBC (9) Tobacco use: Counseling on smoking cessation DVT prophylaxis: SCDs due to thrombocytopenia CODE STATUS Full Code Roommate Chong [phone] Mother Lori [phone] Admission and Anticipated Discharge Date Admission Date: December 19, 2019 Subjective Pt was seen and examined Sitting in bed with no distress Pt said that she is very anxious She asking for her diet to advanced and she wants more ativan She said that she continues to feels weak She is not answering yet if she wants to go to rehab once discharge Denies any chest pain, palpitation, dizziness and SOB Physical Exam Physical Exam: General- No acute distress Head- atraumatic Eyes- PERRL, EOMI, ENT- oropharynx clear Neck- supple, no JVD Lungs- clear to auscultation Heart- +tachycardia Abdomen- normal bowel sounds, soft, nontender Extremities- no calf tenderness, +mild tremor Neuro- alert, oriented x 3; PERRL, EOMI; no facial palsy; no dysarthria Skin- warm & dry Results & Data Results & Data ([facility]) Vital Signs (Past 12 Hours) Vital Signs Temp Pulse Pulse Resp BP BP Pulse Ox 12/21/19 16:00 120 H 12/21/19 15:05 36.9 C 101 H 17 108/75 95 12/21/19 12:00 36.7 C 104 H 18 118/83 98 12/21/19 08:00 67 12/21/19 07:01 36.7 C 92 H 18 107/71 98 Pulse Ox 12/21/19 16:00 12/21/19 15:05 12/21/19 12:00 12/21/19 08:00 98 12/21/19 07:01
[2019-12-21] MEDS ORDERED: LORazepam 0.5 MG TAB PO PRN ×2 (19:44→20:05)
[2019-12-21] MEDS ORDERED: LORazepam 0.5 MG TAB ONE (19:52)
--- NOTE | 2019-12-21 23:41 | Communication Note ---
Date of Service: December 21, 2019 Made aware by RN of patient request to leave hospital to AGAINST MEDICAL ADVICE. Patient not willing to wait for morning provider. Patient intent on departing hospital AGAINST MEDICAL ADVICE despite explanations provided and citation of risks/possible consequences arising from decision to leave AMA which includes as an extreme circumstance. Patient signed AMA papers. Dr. Herrera to accomplish discharge summary.
--- NOTE | 2019-12-22 15:50 | Hospitalist Progress Note ---
Date of Service December 22, 2019 Assessment & Plan Admission and Anticipated Discharge Date Admission Date: December 19, 2019 Subjective patient currently under custody of [facility] updated [facility] medical station about the E.coli bacteremia from 12/19/2019, for which patient did not finish course of antibiotics when she signed out against medical advice and went under custody of police on 12/20, [facility] medical staff are mere [facility] for the full medical release of information
[2019-12-22] MEDS ORDERED: chlordiazePOXIDE HCl 5 MG CAP PO SCH (21:00)
--- NOTE | 2019-12-24 22:23 | Discharge Summary ---
Date of Service December 22, 2019 Admission HPI Per Admitting Provider patient reports last alcohol drink 1 and 1/2 week ago and in the past she would drink 1 bottle of vodka daily but she decided to detox at home by stopping alcohol use abruptly -as per patient's roommate Chong, he corroborates that patient was in bed for 1 week and the roommates would bring food to her and encourage her to go see the doctor. Chong then reports on 12/19/2019 in the day time, he heard a loud noise in the bathroom and found that the patient had fallen down, with tremors, and "foaming of the mouth" and he called for ambulance. Chong also brings patient's prescription of Vistaril (Hydroxyzine) from a Dr. Bertrand Polk filled at [address] with instructions at 50 mg TID prn for anxiety and reported that patient may have finished the entire bottle of medication in a 2 day span -Patient with some tremors but speaking in full sentences and denies taking any other medications recently -on review of systems, patient is not in acute distress. she initially denies any pain but later said there was some headache and upper abdominal discomforts. patient reports nausea but no vomiting. breathing on room air. denies fevers at home. denies other symptoms Admission Exam Per Admitting Provider Constitutional: cooperative Eyes: PERRL, conjunctivae normal, anicteric sclerae EOM intact bilaterally ENMT: external ear and nose normal, oropharynx normal Neck: trachea midline, no thyromegaly Respiratory: normal respiratory effort, lungs clear to auscultation Cardiovascular: + tachycardic (low 100 bpm) Gastrointestinal: normal bowel sounds, soft, nontender, no hepatosplenomegaly Head/Neck/Chest: normocephalic and head atraumatic Neurologic: PERRL, EOMI, accommodation nl, no face palsy, no dysarthria mo ves all extremities Motor/Sensory: + tremor Psychiatric: Orientation: alert and cooperative Principal Diagnosis Alcohol withdrawal seizure: Drug overdose: Bacteremia: Prolonged Q-T interval on ECG: Electrolyte abnormality: Elevated lactic acid level: Increased anion gap metabolic acidosis: Transaminitis: Anemia Thrombocytopenia Tobacco use: Discharge Exam General- No acute distress Head- atraumatic Eyes- PERRL, EOMI, ENT- oropharynx clear Neck- supple, no JVD Lungs- clear to auscultation Heart- +tachycardia Abdomen- normal bowel sounds, soft, nontender Extremities- no calf tenderness, +mild tremor Neuro- alert, oriented x 3; PERRL, EOMI; no facial palsy; no dysarthria Skin- warm & dry Discharge Data Allergies Allergy/AdvReac Type Severity Reaction Status Date / Time Penicillins Allergy Intermediate HIVES Verified 12/19/19 13:53 Consultations 12/19/19 15:20 ED Decision to Admit Stat 12/19/19 16:24 Consult Neurology Routine 12/19/19 18:05 Consult Behavioral Health Liaison Routine Consult Psychiatry Routine 12/20/19 07:55 Consult Gastroenterology Routine Ordered Studies 12/19/19 12:54 CT cervical spine wo con Stat 12/19/19 12:55 CT head/brain wo con Stat 12/19/19 19:14 CT abd pelvis IV con only Routine 12/20/19 10:40 MR MRCP Routine 12/20/19 11:10 US duplex portal hepatic veins Routine 12/21/19 00:16 MR brain seizure wo/w con Routine MRI OF THE BRAIN COMBO CLINICAL HISTORY: Seizure. COMPARISON STUDY: CT of the brain dated 12/19/2019. TECHNIQUE: MRI of the brain was performed utilizing various T1 and T2-weighted sequences in the axial, sagittal, and coronal planes. Contrast-enhanced sequences were acquired following the administration of 7 cc of Gadavist. The examination is performed using the seizure protocol. FINDINGS: Brain parenchyma: The brain parenchyma is normal in appearance. There is no hemorrhage or mass effect. There is no restricted diffusion to suggest acute ischemia. No enhancing mass lesion is identified on the postcontrast images. Park-white matter differentiation is preserved. No extra-axial fluid collection is seen. The cerebellar tonsils are normal in configuration. Question bilateral hippocampal atrophy. The hippocampi are symmetric bilaterally with no abnormal FLAIR signal. Ventricles, sulci, and cisterns: Normal in configuration. Pituitary and sella: Unremarkable. Intracranial vasculature: Normal flow voids are maintained at the skull base. Orbits: The bony orbits are grossly intact. Orbital contents are normal in appearance. Sinuses and mastoids: Trace mucosal thickening is noted within the maxillary antra, the sphenoid sinuses, and ethmoid sinuses. The mastoid air cells are clear. Calvarium: Unremarkable. Soft tissues: A 1.5 cm sebaceous cyst is noted in the posterior scalp. Cervical cord: Partially visualized cervical spinal cord is normal in morphology and signal intensity. IMPRESSION: 1. There is no acute intracranial abnormality. 2. Question mild bilateral atrophy of the hippocampi. This is of indeterminant significance and clinical correlation will be required. ACT 112: Negative or not required by law. Electronically signed by: Felice Amato M.D. 12/21/2019 8:40 AM Dictated: 12/21/1922 Transcribed: 12/21/19822 S duplex portal hepatic veins CLINICAL HISTORY: elevated LFTs COMPARISON STUDY: CT of the abdomen and pelvis December 19, 2019. TECHNIQUE: Color and duplex Doppler sonography of the major hepatic vessels was performed FINDINGS: The main, left and right portal veins are patent with appropriately directed flow. The middle, left and right hepatic veins are patent. Loss of phasicity of the hepatic veins is noted. Hepatic artery is patent. IMPRESSION: Patent major hepatic vessels with appropriately directed flow. ACT 112: Negative or not required by law. Electronically signed by: Ronak Benavidez M.D. 12/20/2019 1:30 PM Dictated: 12/20/19 1328 Transcribed: 12/20/198 MR MRCP CLINICAL HISTORY: Pancreatitis. History of pancreatic stent placement. Positive blood cultures. COMPARISON STUDY: CT scan dated 12/19/2019 FINDINGS: A breath-hold MRCP was performed. MIP images were acquired. The spleen is the upper limits of normal in size measuring 11.8 cm. There is hepatic steatosis. The liver is enlarged measuring 21 cm in length. No gallstones are visualized. There is no intra or extrahepatic biliary ductal dilatation. The common bile duct measures 2.6 mm. There are no filling defects to indicate ductal calculi. There is no pancreatic ductal dilatation. There is mild pancreatic parenchymal edema There is equivocal mild wall thickening involving the splenic flexure IMPRESSION: 1. Hepatic steatosis and hepatomegaly 2. No gallstones identified. 3. No evidence of biliary or pancreatic ductal dilatation. No filling defects identified to indicate calculi 4. Mild pancreatic parenchymal edema ACT 112: Negative or not required by law. Electronically signed by: Jerson Devi M.D. 12/20/2019 1:59 PM Dictated: 12/20/19 1355 Transcribed: 12/20/[address] OF THE ABDOMEN AND PELVIS WITH CONTRAST CLINICAL HISTORY: transaminitis COMPARISON STUDY: CT of the abdomen and pelvis October 03, 2019. TECHNIQUE: Following IV administration of 94 mL of Optiray-320, axial images of the abdomen and pelvis were obtained from the lung bases to the proximal femurs. Images were reviewed in the axial, sagittal, and coronal planes. IV contrast was administered without complication. Automated exposure control was utilized for the study. A dose lowering technique was utilized adhering to the principles of ALARA. CT DOSE: 323.31 mGy.cm FINDINGS: Lung bases are unremarkable. No pneumatosis, free air or portal venous gas is present. There is marked fatty infiltration of the liver. Hepatomegaly is noted. There is no biliary or pancreatic ductal dilatation. A pancreatic stent is in place. Peripancreatic infiltration has increased when compared to exam of October 03, 2019. There is heterogeneous enhancement of the pancreatic parenchyma. No peripancreatic fluid collection is present. Splenic vein is patent. No pseudoaneurysm is identified on. Main, left and right portal veins are patent. The adrenal glands, spleen and kidneys are normal. There is no hydronephrosis. There is mild gallbladder wall thickening. No pneumatosis, free air or portal venous gas is present. Mild diffuse colonic wall thickening is noted. This is likely due to underdistention. No suspicious osseous lesions are noted. Major vasculature is patent. IMPRESSION: 1. Marked fatty infiltration of the liver. Hepatomegaly. 2. Mild to moderate peripancreatic infiltration consistent with acute pancreatitis, increased from prior exam. No peripancreatic fluid collection. 3. No biliary or pancreatic ductal dilatation. Pancreatic stent in place. 4. Mild gallbladder wall thickening. If suspicion for acute cholecystitis, right upper quadrant ultrasound could be obtained. 5. Mild colonic wall thickening which is likely due to underdistention although a mild nonspecific colitis could appear similar. ACT 112: Negative or not required by law. Electronically signed by: Ronak Benavidez M.D. 12/20/2019 8:15 AM Dictated: 12/20/19807 Transcribed: 12/20/19807 CT SCAN OF THE BRAIN WITHOUT IV CONTRAST CLINICAL HISTORY: Fall COMPARISON STUDY: No priors. TECHNIQUE: Unenhanced axial CT scan of the brain is performed from the vertex to the skull base. A dose lowering technique was utilized adhering to the principles of ALARA. CT DOSE: 935.81 mGy.cm FINDINGS: Brain parenchyma: The brain parenchyma is normal in appearance. There is no hemorrhage, mass effect, or evidence of acute territorial ischemia by CT criteria. Park-white matter differentiation is preserved. No extra-axial fluid collection is seen. Ventricles, sulci, cisterns: Normal in configuration. Intracranial vasculature: The visualized intracranial vasculature at the skull base is normal in appearance. Calvarium: There is no depressed calvarial fracture. Soft tissues: A 1.4 cm sebaceous cyst is noted in the right posterior parietal scalp. Sinuses and mastoids: The visualized paranasal sinuses are clear. The mastoid air cells are well pneumatized. Orbits: The bony orbits are grossly intact. IMPRESSION: No acute intracranial abnormality. ACT 112: Negative or not required by law. Electronically signed by: Felice Amato M.D. 12/19/2019 2:52 PM Dictated: 12/19/191449 Transcribed: 12/19/191449 SINGLE VIEW CHEST CLINICAL HISTORY: Fall. FINDINGS: An AP, portable, upright chest radiograph is compared to study dated 10/03/2019. The cardiomediastinal silhouette is unremarkable. The lungs and pleural spaces are clear. No pneumothorax is seen. Nipple shadows project over the lung bases. The bony thorax is grossly intact. IMPRESSION: No active disease in the chest. ACT 112: Negative or not required by law. Electronically signed by: Felice Amato M.D. 12/19/2019 1:19 PM Dictated: 12/19/19 1318 Transcribed: 12/19/191317 CT SCAN OF THE CERVICAL SPINE CLINICAL HISTORY: Fall. COMPARISON STUDY: No priors. TECHNIQUE: CT scan of the cervical spine is performed from the skull base to the upper thoracic spine. Images are reviewed in the axial, sagittal, and coronal planes. IV contrast was not administered for this examination. A dose lowering technique was utilized adhering to the principles of ALARA. FINDINGS: Skeletal structures: The skeletal structures are well mineralized. There is no evidence of fracture or subluxation involving the cervical spine. Vertebral body height and alignment are maintained. There is straightening of the cervical lordosis. The odontoid process and lateral masses are intact. The atlantoaxial articulation is preserved. The spinous processes appear intact. Intervertebral discs: The disc spaces are well maintained. Central canal: Widely patent. Soft tissues: The prevertebral and paraspinous soft tissues are within normal limits. Calvarium: The visualized calvarium at the skull base appears intact. Brain parenchyma: Partially visualized brain parenchyma the skull base is within normal limits. Sinuses and mastoids: Trace mucosal thickening is noted in the sphenoid sinuses. The mastoid air cells are well pneumatized. Lung apices: Emphysematous change is noted at the lung apices. IMPRESSION: 1. There is no evidence of fracture or subluxation involving the cervical spine. 2. Emphysema. ACT 112: Negative or not required by law. Electronically signed by: Felice Amato M.D. 12/19/2019 2:57 PM Dictated: 12/19/191451 Transcribed: 12/19/191451 Hospital Course (1) Alcohol withdrawal seizure: Was brought to the ER after friend heard her fall, tremors on the floor with foaming in her mouth History of alcohol abuse Drank about 1 bottle of Vodka daily and reported last alcohol drink 1 and 1/2 week ago Not sure if pt is reliable about last alcohol drink was about 10days ago since her alcohol level was 32 Continue Librium and Ativan alcohol withdrawal protocol Will monitor closely for DT and seizure Counseling on alcohol cessation Neuro on board Base on the description patient had a seizure as per Neuro mostly due to alcohol withdrawal seizure MRI showed no acute intracranial abnormality. EEG showed no focal slowing or epileptiform activity is recorded. Pt was advised no driving until free of seizure for 6 months Do not operating any heavy or dangerous machinery No swimming alone Addendum Call from nurse that patient would like to leave AMA because she has been requested for more Ativan to be given every 2 to 3 hrs. She did not want to take thre PO Ativan. After few minutes talking to her and reviewed her lab and blood cx, she was agreed to stay. but later that night she ended up signed AMA. [place] police station was called because and she was taken in custody. (2) Drug overdose: Denies any suicidal thought Pt reported that she was taking more Vistaril every few hours due to increase anxiety Case discussed with poison control [place] that recommended to continue N- Acetylcysteine and repeat LFT later Recommended to get an EKG and if QRS greater than 120, will need 3 amps of bicarbonate Continue Benzo due to the tremor (3) Bacteremia: Blood cx positive for gram negative bacilli Continue IV Rocephin for now Follow up blood cx sensitivity Repeat blood cx collected and pending Might consider ID consult if ESBL on sensitivity Continue monitor CBC (4) Prolonged Q-T interval on ECG: Admission QTc 476 and QRS 96 QRS stable on EKG Continue monitor in tele Continue monitor electrolytes (5) Electrolyte abnormality: Mg on admission 1.6 Phosphate stable Potassium 2.6 today Potassium replaced Continue monitor electrolytes (6) Elevated lactic acid level: likely from intoxication and poor oral intake at home and and possible seizure at home On IVF, will d/c lactic acid normalized (7) Increased anion gap metabolic acidosis: Anion gap of 15 on presentation possible related to alcohol and dehydration Received IVF Anion gap closed (8) Transaminitis: Possible related to Alcohol/drug overdose History of ERCP and stent placed in 2019, but never had a chance to follow up with GI with stent removal AST improved from 224 to 160 and ALK from 331 to 276 Gastro on board MRCP done showed no gallstones identified. No evidence of biliary or pancreatic ductal dilatation. No filling defects identified to indicate calculi. Mild pancreatic parenchymal edema N-Acetylcysteine was discontinued since liver enzymes trending down Continue monitor liver enzymes Anemia Mostly due hydration/dilution Hgb 9.1 today Continue monitor CBC Thrombocytopenia Mostly related to alcohol abuse Platelet 61 today No sign of bleeding Continue monitor CBC (9) Tobacco use: Counseling on smoking cessation DVT prophylaxis: SCDs due to thrombocytopenia CODE STATUS Full Code Roommate Chong [phone] Mother Lori [phone] Total Time Total Time Spent Total Time Spent (In Minutes): 15minutes Total Time Includes: Examination of the Patient, Discharge Planning, Medication Reconciliation, Communication With Other Providers and Other Discharge Plan Discharge Items Patient Disposition: Against Medical Advice Reason For Visit: ALCOHOL WITHDRAWAL, POSSIBLE SEIZURE AT HOME Condition on Discharge: Good Follow-up/Referrals: Nazario Perez MD [Primary Care Provider] - Stand-Alone Forms: [facility], Smoking Cessation, Suicide Prevention Resources Medications and DC Order Prescriptions: No Action thiamine HCl (vitamin B1) [Vitamin B-1] 100 mg Tablet 100 mg PO QAM 30 Days Qty: 30 RF: 0 folic acid 1 mg Tablet 1 mg PO QAM 30 Days Qty: 30 RF: 0 Certavite-Antioxidant 18-400 mg-mcg Tablet 1 tab PO QAM 30 Days Qty: 30 RF: 0 ciprofloxacin HCl 500 mg Tablet 500 mg PO Q12H 7 Days Qty: 14 RF: 0 Discharge Orders: Left Against Medical Advice (Routine); Ordered 12/21/19 Ordered By: Juan Miguel Velasquez Admission Data Admit Date/Time: 12/19/19 15:51 Attending Provider: Mary Herrera Admit Provider: George Sales Primary Care Provider: Nazario Perez Other Providers: George Sales ; Roseann Bates ; Chelsea Goodwin ; France Hu Other Interventions: Discharge Summary Assessment (RN) Last Done: 12/22/19 00:14
== END 2019-12-21 23:35 | disposition left against medical advice (07) | DRG 894 ==
LOC: ED 12:45 → SUATTDRO 15:51 → INTOOBSV 15:51 → 2S 15:51

== ENCOUNTER 2019-12-22 18:49 | Observation (INO) ==
[2019-12-22] MEDS ORDERED: SODIUM CHLORIDE 0.9% 1000ML 1,000 ML IV SCH (19:45)
--- NOTE | 2019-12-22 19:58 | XRay Report ---
XR chest 1V portable CLINICAL HISTORY: weakness COMPARISON STUDY: 12/19/2019 FINDINGS: The cardiac and mediastinal contours are normal. There is no evidence of focal pulmonary co nsolidation. There is no evidence of failure. No pleural effusions are visualized.[ IMPRESSION: No active disease in the chest. ACT 112: Negative or not required by law. Electronically signed by: Jerson Devi M.D. 12/22/2019 7:56 PM
[2019-12-22 20:23] LABS: Hematocrit (blood only) 29.1 % (37-47); Hemoglobin 9.7 g/dL (12.0-16.0); Mean Corpuscular Hemoglobin 32.6 pg (25-34); Mean Corpuscular Hgb Conc 33.3 g/dL (32-36); Mean Corpuscular Volume 97.7 fL (80-100); Mean Platelet Volume 9.9 fL (7.4-10.4); Platelet Count 92 K/uL (130-400); RDW Coefficient of Variation 12.6 % (11.5-14.5); RDW Standard Deviation 44.9 fL (36.4-46.3); Red Blood Count 2.98 M/uL (4.2-5.4); White Blood Count 3.43 K/uL (4.8-10.8)
[2019-12-22 20:30] LABS: INR 1.1 (0.9-1.1); Prothrombin Time 11.7 Seconds (9.0-12.0)
[2019-12-22] MEDS ORDERED: cefTRIAXone SODIUM 2,000 MG/70 ML BAG IV STA (20:40)
[2019-12-22 20:41] LABS: Albumin Level 2.5 gm/dl (3.4-5.0); BUN Creatinine Ratio 2.4 (10-20); Blood Urea Nitrogen 2 mg/dl (7-18); Carbon Dioxide 26 mmol/L (21-32); Chloride 109 mmol/L (98-107); Creatinine Clr Calc Pharmacy 113.9 ml/min; Est GFR (African American) 130.6; Est GFR (Non-African American) 112.7; Glucose 120 mg/dl (70-99); Magnesium 1.7 mg/dl (1.8-2.4); Sodium 142 mmol/L (136-145)
--- NOTE | 2019-12-22 20:41 | Emergency Department Note ---
Impression & Plan Weakness, Headache, Hypokalemia, Hypomagnesemia ED Provider Note Provider: Juvenal Holman MD DATE OF SERVICE:12/22/2019 CHIEF COMPLAINT: Infection HISTORY OF PRESENT ILLNESS: Patient is a 34-year-old female with a past medical history including alcohol withdrawal and alcohol abuse as well as biliary stent and pancreatitis presenting today from the [facility] for reevaluation after leaving AGAINST MEDICAL ADVICE early this morning as she was being treated for alcohol withdrawal with seizure as well as bacteremia. Patient is now in the custody of the care home and they wish for her to be evaluated medically. Patient has not been taking any antibiotics since discharge. States she feels just generally weak but denies any trauma. States he is little bit of a headache but denies abdominal pain at this point. Denies chest pain or shortness of breath. Patient denies any seizure since recent evaluation but was agreeable for additional blood work and evaluation here at this time. REVIEW OF SYSTEMS: A total of 10 review of systems was obtained and negative except as stated above in the HPI. PAST MEDICAL HISTORY: As noted above MEDICATIONS: Reviewed recent home discharge medications. Patient denies any antibiotics today. SOCIAL HISTORY: Currently in the custody of the [facility] care home, history of alcohol abuse PHYSICAL EXAM: GENERAL: alert and oriented in no acute distress on stretcher appears somewhat fatigued Head: normocephalic and atraumatic EYES: No injection, discharge or icterus. NECK: Trachea midline. Supple. LUNGS: Airway patent. No retractions. Breath sounds clear HEART: Regular rate and rhythm. No chest wall tenderness ABDOMEN: Soft and non-tender, without guarding or rebound. No hepatosplenomegaly or masses SKIN: Acyanotic, warm, dry with diffuse healing contusions on the bilateral forearms that appear to be from prior IV sticks EXTREMITIES: Without swelling, tenderness or deformity NEUROLOGICAL: No focal deficits. No aphasia. No facial droop or slurred speech. EK bpm normal sinus rhythm. No PVC or PAC. No acute ST segment elevation or depression. Normal QTC. Normal axis. CONTINUOUS CARDIAC MONITORING: was ordered and showed a heart rate of 92 bpm in normal sinus rhythm Patient's laboratory studies and imaging reviewed. Differential includes Infection, dehydration, metabolic abnormality, hypo/hyperglycemia, electrolyte disturbance, anemia, hypoxia, cardiac sources, intracerebral event, toxicologic, neurologic, as well as other pathologies. IMPRESSION/MEDICAL DECISION MAKING: [facility] recent admission for bacteremia and alcohol withdrawal here for reevaluation after leaving AMA. Patient complains of some generalized weakness and a lot of headache today but denies any new trauma. Chest x-ray is complete without acute findings. Benign abdomen. Patient has a mild leukopenia and slight anemia similar to previous lab values from the . Thrombocytopenia appears to be somewhat improving. INR is not elevated. Alcohol level is undetectable at this time. Does not seem to be having focal neurological deficit and does not appear meningitic at this point. Do have concerns for possible infection given recent bacteremia and repeat cultures were sent given she has been off antibiotics. E. coli pansensitive were noted from prior cultures and review of the prior medical record. Did have evaluation by GI as well as neurology during recent admission. Given a dose of ceftriaxone here empirically. Hypokalemia and hypomagnesemia are noted here with stable renal function. Given some IV repletion. Mild AST elevation alk phos elevation similar to previous and no bilirubin elevation and doubt acute stent failure. TSH mildly elevated. Alcohol level is undetectable. No evidence of Tylenol or aspirin level. Troponin is undetectable and EKG without significant ischemic findings. Given the headache and questionable history of CT the head was completed without evidence of acute intracranial abnormality per the preliminary report. On reassessment the patient still complains of a mild headache but is more awake. Again I doubt acute CVA or meningitis. She feels somewhat anxious at this point. Discussed with her findings and recommendation for further inpatient treatment and monitoring to ensure no significant systemic infection. Unsure the exact duration she will need for antibiotic treatment and what treatment may be appropriate given I am not entirely clear what the source of her bacteremia was although again I believe it suggestive of a possible GI source given her history of stent. She is somewhat anxious and I did give her low but Ativan to help with this. Do not believe at this time she is in trev alcohol withdrawal. The hospitalist was contacted. DIAGNOSIS: Weakness, headache, hypokalemia, hypomagnesemia DISPOSITION: Hospitalist will evaluate Preliminary Findings Only See Final Report For Complete Findings CT HEAD: No acute intracranial hemorrhage, edema or mass. No extra-axial fluid collection. No calvarial fracture. Obits, paranasal sinuses and mastoids are unremarkable. 12 mm partially calcified posterior right scalp subcutaneous nodule near the vertex. Radiologist: Jude Tee M.D. Study ready at 21:55 and initial results transmitted at 22:06 Past Med/Surg History Medical History (Updated 12/22/19 @ 22:14 by Juvenal Holman M.D.) Alcoholism No significant active problems Surgical History S/P appendectomy S/P ERCP Social History Smoking Status: Current every day smoker Second Hand Exposure: Yes; Hx Alcohol Use: Yes Alcohol type: hard liquor Hx Substance Use: No Preferred Language: Latvian Communication Ability: Effective Records Coordinator Required: No marital status: Single Current Living Situation: Other Feels Safe at Home: Yes Assistive Devices: None Allergies Allergies Allergy/AdvReac Type Severity Reaction Status Date / Time Penicillins Allergy Intermediate HIVES Verified 12/19/19 13:53 Home Meds Home Medications Medication Instructions Recorded Confirmed bupropion HCl [Wellbutrin SR] 300 mg PO DAILY 08/26/19 12/22/19 venlafaxine 300 mg PO DAILY 09/03/19 12/22/19 hydroxyzine pamoate [Vistaril] 50 mg PO TID 12/19/19 12/22/19 Previous Rx's Medication Instructions Recorded gabapentin 100 mg PO TID 30 Days #90 cap 09/11/19 Results & Data (ED) Vital Signs Vital Signs - 24 hr 12/22/19 19:02 12/22/19 19:53 12/22/19 21:01 Temperature 37.3 C Temperature Source Oral Pulse Rate 108 H Pulse Rate [Left Finger] 91 H Pulse Rhythm Regular Pulse Strength Normal Respiratory Rate 18 18 Respiratory Effort / Characteristics Non-Labored Non-Labored Spontaneous Respiratory Depth Normal Normal Respiratory Pattern Regular Blood Pressure 133/94 Blood Pressure [Right Arm] 123/89 Blood Pressure Mean 107 Blood Pressure Mean [Right Arm] 100 Blood Pressure Position Sitting Blood Pressure Position [Right Arm] Lying Pulse Oximetry 100 100 Oxygen Delivery Method Room Air Room Air Room Air Sepsis Recent Fever Within 48 Hours No Sepsis New/Unexplained Change in Mental Status N/A Sepsis Action Taken by Nursing No Action Required 12/22/19 21:53 Temperature Temperature Source Pulse Rate Pulse Rate [Left Finger] 71 Pulse Rhythm Pulse Strength Respiratory Rate 18 Respiratory Effort / Characteristics Non-Labored Spontaneous Respiratory Depth Normal Respiratory Pattern Regular Blood Pressure Blood Pressure [Right Arm] 119/95 Blood Pressure Mean Blood Pressure Mean [Right Arm] 103 Blood Pressure Position Blood Pressure Position [Right Arm] Lying Pulse Oximetry 100 Oxygen Delivery Method Room Air Sepsis Recent Fever Within 48 Hours Sepsis New/Unexplained Change in Mental Status Sepsis Action Taken by Nursing Laboratory Data Result diagrams: 12/22/19 20:12/22/19 20: Lab Results 12/22/19 12/22/19 12/22/19 Range/Units 20:01 20: 20:01 WBC (4.8-10.8) K/uL RBC (4.2-5.4) M/uL Hgb (12.0-16.0) g/dL Hct (37-47) % MCV (80-100) fL MCH (25-34) pg MCHC (32-36) g/dL RDW Std Deviation (36.4-46.3) fL RDW Coeff of Meme (11.5-14.5) % Plt Count (130-400) K/uL MPV (7.4-10.4) fL Immature Gran % (Auto) % Neut % (Auto) % Lymph % (Auto) % Canadian % (Auto) % Eos % (Auto) % Baso % (Auto) % Neut # (Auto) (1.4-6.5) K/uL Lymph # (Auto) (1.2-3.4) K/uL Canadian # (Auto) (0.11-0.59) K/uL Eos # (Auto) (0-0.5) K/uL Baso # (Auto) (0-0.2) K/uL Immature Gran # (Auto) (0.00-0.02) K/uL Stomatocytes PT 11.7 (9.0-12.0) Seconds INR 1.1 (0.9-1.1) Sodium 142 (136-145) mmol/L Potassium 3.0 L D (3.5-5.1) mmol/L Chloride 109 H (98-107) mmol/L Carbon Dioxide 26 (21-32) mmol/L Anion Gap 7.0 (3-11) BUN 2 L (7-18) mg/dl Creatinine 0.71 (0.6-1.2) mg/dl Est Cr Clr Drug Dosing 113.9 ml/min Est GFR ( Amer) 130.6 Est GFR (Non-Af Amer) 112.7 BUN/Creatinine Ratio 2.4 L (10-20) Glucose 120 H (70-99) mg/dl Lactate 1.2 (0.4-2.0) mmol/L Calcium 9.0 (8.5-10.1) mg/dl Magnesium 1.7 L (1.8-2.4) mg/dl Total Bilirubin 0.8 (0.2-1) mg/dl AST 169 H (15-37) U/L ALT 74 (12-78) U/L Alkaline Phosphatase 385 H (45-117) U/L Troponin I < 0.015 (0-0.045) ng/ml Total Protein 6.3 L D (6.4-8.2) gm/dl Albumin 2.5 L (3.4-5.0) gm/dl Globulin 3.8 (2.5-4.0) gm/dl Albumin/Globulin Ratio 0.7 L (0.9-2) TSH 7.990 H (0.300-4.500) uIu/ml Free T4 0.71 L (0.8-1.6) ng/dl HCG, Qual (Negative) Salicylates (2.8-20) mg/dl Acetaminophen (10-30) ug/ml Ethyl Alcohol mg/dL (0-3) mg/dl 12/22/19 12/22/19 12/22/19 Range/Units 20:01 20:01 20:01 WBC 3.43 L (4.8-10.8) K/uL RBC 2.98 L (4.2-5.4) M/uL Hgb 9.7 L (12.0-16.0) g/dL Hct 29.1 L (37-47) % MCV 97.7 (80-100) fL MCH 32.6 (25-34) pg MCHC 33.3 (32-36) g/dL RDW Std Deviation 44.9 (36.4-46.3) fL RDW Coeff of Meme 12.6 (11.5-14.5) % Plt Count 92 L D (130-400) K/uL MPV 9.9 (7.4-10.4) fL Immature Gran % (Auto) 0.3 % Neut % (Auto) 57.4 % Lymph % (Auto) 30.3 % Canadian % (Auto) 12.0 % Eos % (Auto) 0.0 % Baso % (Auto) 0.0 % Neut # (Auto) 1.97 (1.4-6.5) K/uL Lymph # (Auto) 1.04 L (1.2-3.4) K/uL Canadian # (Auto) 0.41 (0.11-0.59) K/uL Eos # (Auto) 0.00 (0-0.5) K/uL Baso # (Auto) 0.00 (0-0.2) K/uL Immature Gran # (Auto) 0.01 (0.00-0.02) K/uL Stomatocytes 1+ PT (9.0-12.0) Seconds INR (0.9-1.1) Sodium (136-145) mmol/L Potassium (3.5-5.1) mmol/L Chloride (98-107) mmol/L Carbon Dioxide (21-32) mmol/L Anion Gap (3-11) BUN (7-18) mg/dl Creatinine (0.6-1.2) mg/dl Est Cr Clr Drug Dosing ml/min Est GFR ( Amer) Est GFR (Non-Af Amer) BUN/Creatinine Ratio (10-20) Glucose (70-99) mg/dl Lactate (0.4-2.0) mmol/L Calcium (8.5-10.1) mg/dl Magnesium (1.8-2.4) mg/dl Total Bilirubin (0.2-1) mg/dl AST (15-37) U/L ALT (12-78) U/L Alkaline Phosphatase (45-117) U/L Troponin I (0-0.045) ng/ml Total Protein (6.4-8.2) gm/dl Albumin (3.4-5.0) gm/dl Globulin (2.5-4.0) gm/dl Albumin/Globulin Ratio (0.9-2) TSH (0.300-4.500) uIu/ml Free T4 (0.8-1.6) ng/dl HCG, Qual Negative (Negative) Salicylates (2.8-20) mg/dl Acetaminophen (10-30) ug/ml Ethyl Alcohol mg/dL < 3.0 (0-3) mg/dl 12/22/19 Range/Units 20:04 WBC (4.8-10.8) K/uL RBC (4.2-5.4) M/uL Hgb (12.0-16.0) g/dL Hct (37-47) % MCV (80-100) fL MCH (25-34) pg MCHC (32-36) g/dL RDW Std Deviation (36.4-46.3) fL RDW Coeff of Meme (11.5-14.5) % Plt Count (130-400) K/uL MPV (7.4-10.4) fL Immature Gran % (Auto) % Neut % (Auto) % Lymph % (Auto) % Canadian % (Auto) % Eos % (Auto) % Baso % (Auto) % Neut # (Auto) (1.4-6.5) K/uL Lymph # (Auto) (1.2-3.4) K/uL Canadian # (Auto) (0.11-0.59) K/uL Eos # (Auto) (0-0.5) K/uL Baso # (Auto) (0-0.2) K/uL Immature Gran # (Auto) (0.00-0.02) K/uL Stomatocytes PT (9.0-12.0) Seconds INR (0.9-1.1) Sodium (136-145) mmol/L Potassium (3.5-5.1) mmol/L Chloride (98-107) mmol/L Carbon Dioxide (21-32) mmol/L Anion Gap (3-11) BUN (7-18) mg/dl Creatinine (0.6-1.2) mg/dl Est Cr Clr Drug Dosing ml/min Est GFR ( Amer) Est GFR (Non-Af Amer) BUN/Creatinine Ratio (10-20) Glucose (70-99) mg/dl Lactate (0.4-2.0) mmol/L Calcium (8.5-10.1) mg/dl Magnesium (1.8-2.4) mg/dl Total Bilirubin (0.2-1) mg/dl AST (15-37) U/L ALT (12-78) U/L Alkaline Phosphatase (45-117) U/L Troponin I (0-0.045) ng/ml Total Protein (6.4-8.2) gm/dl Albumin (3.4-5.0) gm/dl Globulin (2.5-4.0) gm/dl Albumin/Globulin Ratio (0.9-2) TSH (0.300-4.500) uIu/ml Free T4 (0.8-1.6) ng/dl HCG, Qual (Negative) Salicylates < 1.7 L (2.8-20) mg/dl Acetaminophen < 2 L (10-30) ug/ml Ethyl Alcohol mg/dL (0-3) mg/dl Administered Medications Discontinued Medications Sodium Chloride (Nss 1000ml) 1,000 mls @ 999 mls/hr IV .[id number] LINDSAY Stop: 12/22/19 20:45 Last Infusion: 12/22/19 21:14 Dose: 0 mls/hr Documented by: [id number] Admin: 12/22/19 20:21 Dose: 999 mls/hr Documented by: [id number] Ceftriaxone Sodium (Rocephin) 2,000 mg in 70 mls @ 140 mls/hr IV NOW STA Stop: 12/22/19 21:09 Last Infusion: 12/22/19 21:24 Dose: 0 mls/hr Documented by: [id number] Admin: 12/22/19 20:57 Dose: 140 mls/hr Documented by: [id number] Potassium Chloride (K Collins / Wtr) 10 meq in 100 mls @ 100 mls/hr IV ONE ONE Stop: 12/22/19 21:45 Last Admin: 12/22/19 21:46 Dose: 100 mls/hr Documented by: [id number] Magnesium Sulfate/Dextrose (Magnesium Sulfate / D5w) 1 gm in 100 mls @ 100 mls/hr IV NOW STA Stop: 12/22/19 21:45 Last Admin: 12/22/19 21:46 Dose: 100 mls/hr Documented by: [id number] Lorazepam (Ativan) 1 mg in 2 mls @ 2 mls/min IV NOW STA Stop: 12/22/19 22:13 Last Admin: 12/22/19 22:19 Dose: 2 mls/min Documented by: [id number] Discharge Plan Visit Data Chief Complaint: Abnormal Labs/Diagnostic Testing Stated Complaint: ABNORMAL LABWORK ED Provider: Juvenal Holman Discharge Problem: Weakness, Headache, Hypokalemia, Hypomagnesemia Patient Disposition: Being Evaluated by Hospitalist Forms Stand Alone Forms: Replaced By [facility] Prescriptions Prescriptions: No Action bupropion HCl [Wellbutrin SR] 150 mg tablet sustained-release 12 hr 300 mg PO DAILY RF: 0 venlafaxine 150 mg capsule,extended release 24hr 300 mg PO DAILY RF: 0 gabapentin 100 mg capsule 100 mg PO TID 30 Days Qty: 90 RF: 0 hydroxyzine pamoate [Vistaril] 50 mg capsule 50 mg PO TID RF: 0 Referrals Referrals: Nazario Perez MD [Primary Care Provider] - Discharge Problem: Headache Qualifiers: Headache type: unspecified Headache chronicity pattern: acute headache Intractability: not intractable Qualified Code(s): R51.9 - Headache, unspecified
[2019-12-22 20:44] LABS: Immature Granulocytes # (auto) 0.01 K/uL (0.00-0.02); Immature Granulocytes % (auto) 0.3 %; Lymphocytes # (auto) 1.04 K/uL (1.2-3.4); Lymphocytes % (auto) 30.3 %; Monocytes # (auto) 0.41 K/uL (0.11-0.59); Neutrophils # (auto) 1.97 K/uL (1.4-6.5); Neutrophils % (auto) 57.4 %; Stomatocytes 1+
[2019-12-22] MEDS ORDERED: POTASSIUM CHLORIDE / WTR 10 MEQ/100 ML PLCT IV ONE (20:46)
[2019-12-22] MEDS ORDERED: MAGNESIUM SULFATE / D5W 1 GM/100 ML BAG IV STA (20:46)
[2019-12-22 20:49] LABS: Alanine Aminotransferase 74 U/L (12-78); Albumin Globulin Ratio 0.7 (0.9-2); Alkaline Phosphatase 385 U/L (45-117); Aspartate Aminotransferase 169 U/L (15-37); Bilirubin,Total 0.8 mg/dl (0.2-1); Globulin 3.8 gm/dl (2.5-4.0); Pregnancy Test, Serum Negative (Negative); Total Protein 6.3 gm/dl (6.4-8.2); Troponin I < 0.015 ng/ml (0-0.045)
[2019-12-22 20:54] LABS: Acetaminophen < 2 ug/ml (10-30); Salicylate < 1.7 mg/dl (2.8-20)
[2019-12-22 21:02] LABS: T4 Free Thyroxine 0.71 ng/dl (0.8-1.6)
[2019-12-22] MEDS ORDERED: LORazepam 1 MG/2 ML VIAL IV STA (22:12)
[2019-12-23] MEDS ORDERED: LORazepam 0.5 MG TAB PO STA (00:42)
[2019-12-23] MEDS ORDERED: POTASSIUM CHLORIDE CRTAB 20 MEQ TABCR PO STA ×2 (00:42→07:23)
--- NOTE | 2019-12-23 02:57 | History and Physical Report ---
DATE OF ADMISSION: 12/22/2019 CHIEF COMPLAINT: Bacteremia. HISTORY OF PRESENT ILLNESS: A 34-year-old female with past medical history significant for alcoholism, tobacco use disorder, sleep disturbance, history of substance abuse, history of chronic back pain who was recently in the hospital, was admitted on 12/19/2019 for alcohol withdrawal seizures, at that time had EEG and MRI scan, which was unremarkable and was thought her seizure was mostly from alcohol withdrawal . Neurology advised no driving for six months and advised to avoid heights or water .Patient has a history of pancreatitis with pancreatic stent placement on 08/29/2019. Pancreatic stent was in place on the CAT scan done last t admission, history of alcoholic hepatitis. GI saw her last admission because of transaminitis, but the LFTs trended down .She was also treated with Rocephin for positive bacteremia. But patient signed against medical advice, after that patient seems to be taken to [facility] by Police on 12/21/2019.Because of the bacteremia, the patient was brought in back here for medical clearance. The patient complaints of chronic headache and back pain and some right flank pain. Otherwise, resting comfortably and hemodynamically stable, alert and oriented, somewhat sleepy. Denies any earache, no runny nose, no sore throat, no cough, no chest pain, no shortness of breath, no nausea, no vomiting, no abdominal pain. Normal bowel and bladder movements. Denies any blood in the stools or black stools. Denies any hematuria. No burning micturition, no swelling in the legs. ALLERGIES: PENICILLIN. PAST MEDICAL HISTORY: As mentioned above. PAST SURGICAL HISTORY: History of vaginal delivery, removal of retained placenta, appendectomy. MEDICATIONS: Seems to be on Wellbutrin SR 300 mg p.o. daily, gabapentin 100 mg p.o. daily, Vistaril 50 mg p.o. t.i.d., venlafaxine 300 mg p.o. daily. FAMILY HISTORY: Significant for maternal grandmother has diabetes, hypertension. Mother has bipolar. SOCIAL HISTORY: Single, smokes half pack a day. Was recently admitted with alcoholism Seems to be drinking 1 bottle of vodka daily. History of drug abuse in the past. REVIEW OF SYMPTOMS: As per HPI. Rest of review of symptoms negative. PHYSICAL EXAMINATION: GENERAL: The patient is of moderate build, not in acute distress. VITAL SIGNS: Temperature 37.3, pulse 77, respiratory rate 18, blood pressure 120/88, oxygen 100% on room air. HEENT: No pallor, no icterus. Pupils equal, round, reactive to light. Oral mucosa moist. NECK: No JVD, no neck masses. Supple. CARDIOVASCULAR: S1, S2 heard, regular rate and rhythm, no murmur, no gallop. RESPIRATORY SYSTEM: Normal AP diameter. No accessory muscle use. No wheezing, no crackles. ABDOMEN: Soft, bowel sounds present, nontender. No distention. CENTRAL NERVOUS SYSTEM: Cranial nerves II-XII grossly intact. Nonfocal. EXTREMITIES: No edema, no erythema. LABORATORY DATA: WBC 3.4, hemoglobin 9.7, hematocrit 29.1, platelets 92. PT 11.7, INR 1.1. Sodium 142, potassium 3.3, chloride 109, bicarbonate 26, BUN 2, creatinine 0.7, serum glucose 120, lactate 1.2, calcium 9, magnesium 1.7, total bilirubin 0.8, AST 169, ALT 74, alkaline phosphatase 385. TSH 7.9, free T4 0.7. HCG negative. Salicylate less than 1.7, acetaminophen less than 2, ethyl alcohol less than 3. Chest x-ray: No acute disease in the chest. CT of the head, preliminary report, no acute findings. 12 mm partially calcified posterior right scalp subcutaneous nodule near the vertex. EKG: Normal sinus rhythm, rate of 79, nonspecific T-wave abnormality seen. ASSESSMENT AND PLAN: 1. This is a 34-year-old female who was recently in the hospital, currently was brought in from longterm because of recent bacteremia, was treated with Rocephin, bu the patient signed out AMA. Brought back from the longterm for medical clearance. She has leukopenia, which seemed to be was there with last admission, mostly from the alcoholism. Currently hemodynamically stable, afebrile. Cultures redrawn in the ER. We will continue with IV Rocephin and monitor in the medical floor. 2. Recently alcohol withdrawal seizures. The patient was in the ER with alcohol withdrawal seizures, EEG and MRI was unremarkable. Seen by neurology, thought to be from the alcoholism. Advised for no driving for six months, avoid heights and water and also advised to consider changing Wellbutrin, as per the neuro notes, the patient was not inclined to stop it. To be followed up with psych. We will continue with folic acid and thiamine. 3. Thrombocytopenia from alcoholism. Seems to be improving. We will follow the repeat labs. 4. Electrolyte abnormality. Potassium of 3 and magnesium 1.7, replaced. Follow the repeat labs. 5. Transaminitis, possibly due to alcoholism. History of pancreatic stent placed in August 2019. Recent CAT scan showing stent in place, was seen by GI in last admission. MRCP was done which was unremarkable. We will follow the repeat labs.because of bacteremia if any concerns will reconsult GI. 6. Anemia. Hemoglobin 9.7, was 9.1 last admission. We will follow the repeat labs.Will get stool Hemoccult. 7. History of tobacco abuse, needs counseling. 8. Hypothyroidism. Will follow repeat labs and if still consistent with hypothyroidism will start on Synthroid and followup with pcp. 9. Deep venous thrombosis prophylaxis, sequential compression devices due to thrombocytopenia. 10. Code status. Full code. DISPOSITION: Admit to medical floor. Expect discharge back to longterm when stable. VANESSA
[2019-12-23 06:11] LABS: Hematocrit (blood only) 26.7 % (37-47); Hemoglobin 8.7 g/dL (12.0-16.0); Lymphocytes # (auto) 1.47 K/uL (1.2-3.4); Lymphocytes % (auto) 44.5 %; Mean Corpuscular Hemoglobin 32.5 pg (25-34); Mean Corpuscular Hgb Conc 32.6 g/dL (32-36); Mean Corpuscular Volume 99.6 fL (80-100); Mean Platelet Volume 9.9 fL (7.4-10.4); Monocytes # (auto) 0.38 K/uL (0.11-0.59); Monocytes % (auto) 11.5 %; Neutrophils # (auto) 1.45 K/uL (1.4-6.5); Platelet Count 104 K/uL (130-400); RDW Coefficient of Variation 12.8 % (11.5-14.5); RDW Standard Deviation 46.1 fL (36.4-46.3); Red Blood Count 2.68 M/uL (4.2-5.4)
[2019-12-23 06:41] LABS: BUN Creatinine Ratio 2.6 (10-20); Calcium 8.7 mg/dl (8.5-10.1); Creatinine Clr Calc Pharmacy 132.9 ml/min; Magnesium 1.9 mg/dl (1.8-2.4); Potassium 3.5 mmol/L (3.5-5.1)
[2019-12-23 06:52] LABS: Thyroid Stimulating Hormone 13.6 uIu/ml (0.300-4.500)
--- NOTE | 2019-12-23 07:03 | CT Scan Report ---
CT OF THE HEAD WITHOUT CONTRAST CLINICAL HISTORY: headache COMPARISON STUDY: Head CT December 19, 2019. MRI of the brain December 21, 2019. CT DOSE: 537.48 mGy.cm TECHNIQUE: Helical axial images of the head were obtained without IV contrast. Automated exposure con trol was utilized for the study. A dose lowering technique was utilized adhering to the principles o f ALARA. FINDINGS: No acute intracranial hemorrhage, midline shift or mass effect is present. The ventricular system is unremarkable. The basilar cisterns are patent. No extra-axial collections are present. Ther e are no findings to suggest acute dural sinus thrombosis or acute territorial infarct. No significan t calvarial abnormalities are present. Visualized portions of the sinuses and mastoid air cells are c lear. Incidental note is made of a right scalp sebaceous cyst. IMPRESSION: No acute intracranial findings. ACT 112: Negative or not required by law. Electronically signed by: Ronak Benavidez M.D. 12/23/2019 7:01 AM
--- NOTE | 2019-12-23 08:37 | Hospitalist Progress Note ---
Date of Service December 23, 2019 Assessment & Plan (1) E coli bacteremia: -This is a 34 year old Female who initially presented to [facility] on 12/19/2019 by EMS as called by her roommate because she fell in the bathroom and having tremors after 1 week of malaise which was thought to have been largely due to alcohol withdrawal and suspected Vistaril (Hydroxyzine) overdose. During that admission and workup, patient also found to have E.coli bacteremia - unclear whether the source were from urine or GI source because of of history or ERCP stent that was not remove, Patient was started on IV ceftriaxone on admission because of bacteria in the urine but the urine culture could not identify E.coli because urine culture as "Three types of organisms present, all low counts probable skin gardenia." While being empirically on IV ceftriaxone 2 grams IV q24 hours, patient's admission blood culture positive for pansensitive E.coli. Based on chart review she received IV ceftriaxone on 12/19/19 and 12/20/2019. However on 12/21/2019, patient signed out against medical advice and did not get the third dose of IV ceftriaxone. Patient also had legal issues and upon her signing out against medical advice, patient went under the immediate custody of [place] [employer] and brought to [facility] correctional facility. On 12/22/2019 Hospitalist reached out to medical staff at [facility] to bring to their attention that patient has not received full course of antibiotic treatment for the E.coli bacteremia. In response, the [facility] correctional facility returned patient to [facility] for medical re-evaluation on night time of 12/22/2019. Patient is admitted and again resumed IV ceftriaxone daily -continue the ceftriaxone daily while in the hospital for now and follow the blood cultures from 12/21/2019 and 12/22/2019. -since patient now under the custody of police, will again consult [facility] gastroenterology service whether any role for pancreatic duct stent from history of ERCP in August 2019 should be removed while patient is in the hospital. At that time in August 2019, the Gastroneterology recommendations were to have the stent removed in 1 month. Patient clearly did not follow up with outpatient GI clinic. Her behavior of signing out against medical advice on previous hospitalization and now being under the custody of the police means likely that patient will not be able to follow up with [facility] gastroenterology clinic (2) Transaminitis: -chronically elevated levels from history of alcohol use in the past History of alcoholism suspected alcohol withdrawal seizures (prior to admission on 12/19/2019) -no alcohol withdrawal symptoms at this time -on first admission her EEG and MRI was unremarkable and advised seizure precautions of: no driving for six months, avoid heights and water -continue with folic acid and thiamine. Thrombocytopenia -chronic likely from alcohol effects on liver chronic anemia -blood counts are stable Anxiety -suspected misuse of Vistaril at home on previous admission -hold off anxiolytics unless there are signs of substance withdrawal at this time (3) Hypokalemia: -the re-admission serum serum potassium of 3 -patient received potassium supplements and serum potassium is 3.5 on 12/23/2019, continue to replete as needed and follow the serum potassium levels (4) Hypomagnesemia: -give daily oral magnesium supplement (5) Abnormal thyroid function test: -elevated TSH of 7.99 on 12/22/2019 and re-measured as 13.6 on 12/23/2019, free T4 mildly low as 0.71 -possible hypothyroidism versus abnormal thyroid labs from illness, check total T4, total T3, free T3 History of tobacco use Deep venous thrombosis prophylaxis, sequential compression devices, ambulation Admission and Anticipated Discharge Date Admission Date: December 22, 2019 Subjective Patient seen and examined while under custody. Patient eating the breakfast. answers questions in full sentences. Cooperative. no acute distress. no tremors. normal heart rate. patient denies acute pain. no other physical complaints from the patient Review of Systems Review of Systems: All systems reviewed & are unremarkable except as noted in Subjective Physical Exam Constitutional: cooperative Eyes: PERRL, conjunctivae normal, anicteric sclerae EOM intact bilaterally ENMT: external ear and nose normal, oropharynx normal Neck: normal visual inspection Respiratory: normal respiratory effort, lungs clear to auscultation Cardiovascular: Rate/Rhythm: regular rate Gastrointestinal (Abdomen): normal bowel sounds, soft, nontender, no hepatosplenomegaly Musculoskeletal: Head/Neck/Chest: normocephalic and head atraumatic Neurologic: PERRL, EOMI, accommodation nl, no face palsy, no dysarthria CN's II-XI intact bilaterally Psychiatric: Orientation: alert and oriented x 3 Results & Data Results & Data ([facility]) Vital Signs (Past 12 Hours) Vital Signs Temp Pulse Resp BP Pulse Ox 12/23/19 07:34 36.9 C 74 17 128/87 100 12/23/19 00:42 36.8 C 89 16 132/91 98 12/23/19 00:17 79 18 122/86 98 12/22/19 23:08 77 18 120/88 100 12/22/19 21:53 71 18 119/95 100 12/22/19 21:01 91 H 18 123/89 100
[2019-12-23] MEDS: CEROVITE ADV FORMULA TAB PO SCH (09:07)
[2019-12-23] MEDS: THIAMINE HCL 100 MG TAB PO SCH (09:07)
[2019-12-23] MEDS: GABAPENTIN 100 MG CAP PO SCH ×3 (09:08→19:59)
[2019-12-23] MEDS: FOLIC ACID 1 MG TAB PO SCH (09:08)
[2019-12-23] MEDS: buPROPion SR 150 MG TABCR PO SCH (09:08)
--- NOTE | 2019-12-23 09:08 | Gastrointestinal Consultation ---
Date of Consultation December 23, 2019 Supervising Physician Co-Signing Physician Notes I was unable to type in the A&P of this note. 34 year old female w/ history of ETOH abuse, pancreatitis w signs of ductal disruption, likely ETOH hepatitis s/p ERCP 08/[address] w pancreatic duct stent pl acement, pancreatic sphincterectomy lost to OP follow up admitted w/ ongoing ETOH use recently left AMA readmitted at the request of [facility] for ongoing treatment of bacteremia. She is afebrile without leukocytosis and denies nausea/vomiting. While her PD stent is in place there is no evidence of ductal dilation on CTAP or MR. Hepatic Duplex negative. DDX discussed: pancreatitis, ETOH hep, DILI vs others. Maddrey DF 6.5, no current indication for steroid therapy. He LFTs are trending down w/ previous NAC therapy and ETOH cessation. She tolerated regular breakfast this AM Diet as tolerated Antiemetics PRN Analgesia PRN Follow blood culture Follow urine cultures Can continue empiric ABX for now ETOH cessation was recommended [facility] protocol Trend LFTs Thank you for allowing us to participate in the care of this patient. Please call with any acute changes, questions or concerns. Please see addendum below with additional recommendation from my supervising physician. I have seen and examined the patient and discussed the management with YOMAIRA Baron. 34 yo fm for which GI had been consulted earlier in the week given alcoholic pancreatitis/hepatitis that was improving, she had + blood cultures during her last admission. Left ama, went to long-term, and now readmitted. PE - unchanged, alert and oriented to person, place, time, HEENT - perrla, CV- rrr no mrg, Pulm - ctab Abd - soft nt nd +bs Labs reviewed- lft's improving except alk phos, Repeat cultures pending There is no suspected biliary source as her recent MRCP does not show cbd duct dilation or gb issues. Would complete her course of abx therapy for blood cultures, continued avoidance of alcohol, prior pancreatic stent is in place and no plans for removal for now as an inpatient - recall ercp as an outpatient is scheduled for 01/18/20 with a 7 am arrival at [facility] with Dr. Shea. History of Present Illness Reason for Consultation: +blood cultures, history of ERCP Requesting Physician: Henrry Attending Physician: George Sales MD History of Present Illness 34 year old female w/ history of ETOH abuse, pancreatitis w signs of ductal disruption, likely ETOH hepatitis s/p ERCP 08/28 w pancreatic duct stent placement, pancreatic sphincterectomy lost to OP follow up who presents through the ED from [facility] after leaving AMA from [place] the day prior w/ ongoing symptoms of decreased appetite, fatigue. GI asked to evaluate given prior blood cultures history of ERCP. Pt was seen and evaluated, chart reviewed. She reports lower abd pressure/discomfort. Intermittent. Not associated w/ PO intake. No nausea/vomiting. Just completed nearly 2/3 of regular diet this AM. She did not citrus picker any prescribed medications after leaving. Denies fever, chills, CP, SOB. She is awake, alert and oriented. She is afebrile, without leukocytosis. Her liver enzymes continue to improve, Tb on admission was 0.8, AST 169, ALT 73, ALKP 385 Last ETOH use reported was about 7 days ago. Denies any new medications Hepatic Duplex: Patent major hepatic vessels with appropriately directed flow. MRCP: Hepatic steatosis and hepatomegaly No gallstones identified. No evidence of biliary or pancreatic ductal dilatation. No filling defects identified to indicate calculiMild pancreatic parenchymal edema CTAP: Marked fatty infiltration of the liver. Hepatomegaly. Mild to moderate peripancreatic infiltration consistent with acute pancreatitis, increased from prior exam. No peripancreatic fluid collection. No biliary or pancreatic ductal dilatation. Pancreatic stent in place.Mild gallbladder wall thickening. If suspicion for acute cholecystitis, right upper quadrant ultrasound could be obtained. Mild colonic wall thickening which is likely due to underdistention although a mild nonspecific colitis could appear similar. Allergies Allergy/AdvReac Type Severity Reaction Status Date / Time Penicillins Allergy Intermediate HIVES Verified 12/19/19 13:53 Home Medications Home Medications Medication Instructions Recorded Confirmed Type bupropion HCl [Wellbutrin SR] 300 mg PO DAILY 08/26/19 12/22/19 History venlafaxine 300 mg PO DAILY 09/03/19 12/22/19 History gabapentin 100 mg PO TID 30 Days #90 cap 09/11/19 12/22/19 Rx hydroxyzine pamoate [Vistaril] 50 mg PO TID 12/19/19 12/22/19 History Patient History Medical History (Updated 12/23/19 @ 09:03 by George Sales MD) Alcoholism No significant active problems Surgical History S/P appendectomy S/P ERCP Social History Smoking Status: Current every day smoker Second Hand Exposure: Yes; Do You Dip or Chew Tobacco: No; Tobacco Cessation Education Requested by Patient: No Hx Alcohol Use: Yes Alcohol type: hard liquor Hx Substance Use: No Preferred Language: Palestinian Communication Ability: Effective 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 Beliefs That Will Affect Care: None marital status: Single Current Living Situation: Other Current Living Situation Comment: Friend Other Information That Helps Us Care for You: No Feels Safe at Home: Yes Safety Concerns: Feels Safe At This Time Assistive Devices: None Review of Systems Constitutional: no fever, no chills and no fatigue Respiratory: no cough and no dyspnea Cardiovascular: no chest pain, no dyspnea and no palpitations Gastrointestinal: + abdominal pain (chronic, intermittent); no nausea, no hematemesis, no change in bowel habits, no blood in stools and no melena Physical Exam Constitutional: well developed and well nourished; no acute distress Neck: trachea midline Respiratory: normal respiratory effort Gastrointestinal (Abdomen): Inspection/Auscultation: abdomen normal to inspection Percussion/Palpation: abdomen soft; abdomen nontender, no guarding and abdomen not rigid Skin: no rashes, warm and dry Results & Data ([facility]) Vital Signs (Past 12 Hours) Vital Signs Temp Pulse Resp BP Pulse Ox 12/23/19 07:34 36.9 C 74 17 128/87 100 12/23/19 00:42 36.8 C 89 16 132/91 98 12/23/19 00:17 79 18 122/86 98 12/22/19 23:08 77 18 120/88 100 12/22/19 21:53 71 18 119/95 100 Laboratory Results 12/23/19 12/23/19 12/23/19 Range/Units 05:03 05:03 05:03 WBC 3.30 L (4.8-10.8) K/uL RBC 2.68 L (4.2-5.4) M/uL Hgb 8.7 L (12.0-16.0) g/dL Hct 26.7 L (37-47) % MCV 99.6 (80-100) fL MCH 32.5 (25-34) pg MCHC 32.6 (32-36) g/dL RDW Std Deviation 46.1 (36.4-46.3) fL RDW Coeff of Meme 12.8 (11.5-14.5) % Plt Count 104 L (130-400) K/uL MPV 9.9 (7.4-10.4) fL Immature Gran % (Auto) 0.0 % Neut % (Auto) 44.0 % Lymph % (Auto) 44.5 % [place] % (Auto) 11.5 % Eos % (Auto) 0.0 % Baso % (Auto) 0.0 % Neut # (Auto) 1.45 (1.4-6.5) K/uL Lymph # (Auto) 1.47 (1.2-3.4) K/uL [place] # (Auto) 0.38 (0.11-0.59) K/uL Eos # (Auto) 0.00 (0-0.5) K/uL Baso # (Auto) 0.00 (0-0.2) K/uL Immature Gran # (Auto) 0.00 (0.00-0.02) K/uL Stomatocytes PT (9.0-12.0) Seconds INR (0.9-1.1) Sodium 145 (136-145) mmol/L Potassium 3.5 D (3.5-5.1) mmol/L Chloride 113 H (98-107) mmol/L Carbon Dioxide 27 (21-32) mmol/L Anion Gap 5.0 (3-11) BUN 2 L (7-18) mg/dl Creatinine 0.61 (0.6-1.2) mg/dl Est Cr Clr Drug Dosing 132.9 ml/min Est GFR ( Amer) 139.0 Est GFR (Non-Af Amer) 120.0 BUN/Creatinine Ratio 2.6 L (10-20) Glucose 88 (70-99) mg/dl Lactate (0.4-2.0) mmol/L Calcium 8.7 (8.5-10.1) mg/dl Phosphorus 3.4 (2.5-4.9) mg/dl Magnesium 1.9 (1.8-2.4) mg/dl Total Bilirubin (0.2-1) mg/dl AST (15-37) U/L ALT (12-78) U/L Alkaline Phosphatase (45-117) U/L Troponin I (0-0.045) ng/ml Total Protein (6.4-8.2) gm/dl Albumin (3.4-5.0) gm/dl Globulin (2.5-4.0) gm/dl Albumin/Globulin Ratio (0.9-2) TSH 13.600 H (0.300-4.500) uIu/ml Free T4 (0.8-1.6) ng/dl HCG, Qual (Negative) Salicylates (2.8-20) mg/dl Acetaminophen (10-30) ug/ml Ethyl Alcohol mg/dL (0-3) mg/dl 12/22/19 12/22/19 12/22/19 Range/Units 20:04 20:01 20:01 WBC 3.43 L (4.8-10.8) K/uL RBC 2.98 L (4.2-5.4) M/uL Hgb 9.7 L (12.0-16.0) g/dL Hct 29.1 L (37-47) % MCV 97.7 (80-100) fL MCH 32.6 (25-34) pg MCHC 33.3 (32-36) g/dL RDW Std Deviation 44.9 (36.4-46.3) fL RDW Coeff of Meme 12.6 (11.5-14.5) % Plt Count 92 L D (130-400) K/uL MPV 9.9 (7.4-10.4) fL Immature Gran % (Auto) 0.3 % Neut % (Auto) 57.4 % Lymph % (Auto) 30.3 % [place] % (Auto) 12.0 % Eos % (Auto) 0.0 % Baso % (Auto) 0.0 % Neut # (Auto) 1.97 (1.4-6.5) K/uL Lymph # (Auto) 1.04 L (1.2-3.4) K/uL [place] # (Auto) 0.41 (0.11-0.59) K/uL Eos # (Auto) 0.00 (0-0.5) K/uL Baso # (Auto) 0.00 (0-0.2) K/uL Immature Gran # (Auto) 0.01 (0.00-0.02) K/uL Stomatocytes 1+ PT (9.0-12.0) Seconds INR (0.9-1.1) Sodium (136-145) mmol/L Potassium (3.5-5.1) mmol/L Chloride (98-107) mmol/L Carbon Dioxide (21-32) mmol/L Anion Gap (3-11) BUN (7-18) mg/dl Creatinine (0.6-1.2) mg/dl Est Cr Clr Drug Dosing ml/min Est GFR ( Amer) Est GFR (Non-Af Amer) BUN/Creatinine Ratio (10-20) Glucose (70-99) mg/dl Lactate (0.4-2.0) mmol/L Calcium (8.5-10.1) mg/dl Phosphorus (2.5-4.9) mg/dl Magnesium (1.8-2.4) mg/dl Total Bilirubin (0.2-1) mg/dl AST (15-37) U/L ALT (12-78) U/L Alkaline Phosphatase (45-117) U/L Troponin I (0-0.045) ng/ml Total Protein (6.4-8.2) gm/dl Albumin (3.4-5.0) gm/dl Globulin (2.5-4.0) gm/dl Albumin/Globulin Ratio (0.9-2) TSH (0.300-4.500) uIu/ml Free T4 (0.8-1.6) ng/dl HCG, Qual Negative (Negative) Salicylates < 1.7 L (2.8-20) mg/dl Acetaminophen < 2 L (10-30) ug/ml Ethyl Alcohol mg/dL (0-3) mg/dl 12/22/19 12/22/19 12/22/19 Range/Units 20:01 20:01 20:01 WBC (4.8-10.8) K/uL RBC (4.2-5.4) M/uL Hgb (12.0-16.0) g/dL Hct (37-47) % MCV (80-100) fL MCH (25-34) pg MCHC (32-36) g/dL RDW Std Deviation (36.4-46.3) fL RDW Coeff of Meme (11.5-14.5) % Plt Count (130-400) K/uL MPV (7.4-10.4) fL Immature Gran % (Auto) % Neut % (Auto) % Lymph % (Auto) % [place] % (Auto) % Eos % (Auto) % Baso % (Auto) % Neut # (Auto) (1.4-6.5) K/uL Lymph # (Auto) (1.2-3.4) K/uL [place] # (Auto) (0.11-0.59) K/uL Eos # (Auto) (0-0.5) K/uL Baso # (Auto) (0-0.2) K/uL Immature Gran # (Auto) (0.00-0.02) K/uL Stomatocytes PT (9.0-12.0) Seconds INR (0.9-1.1) Sodium 142 (136-145) mmol/L Potassium 3.0 L D (3.5-5.1) mmol/L Chloride 109 H (98-107) mmol/L Carbon Dioxide 26 (21-32) mmol/L Anion Gap 7.0 (3-11) BUN 2 L (7-18) mg/dl Creatinine 0.71 (0.6-1.2) mg/dl Est Cr Clr Drug Dosing 113.9 ml/min Est GFR ( Amer) 130.6 Est GFR (Non-Af Amer) 112.7 BUN/Creatinine Ratio 2.4 L (10-20) Glucose 120 H (70-99) mg/dl Lactate 1.2 (0.4-2.0) mmol/L Calcium 9.0 (8.5-10.1) mg/dl Phosphorus (2.5-4.9) mg/dl Magnesium 1.7 L (1.8-2.4) mg/dl Total Bilirubin 0.8 (0.2-1) mg/dl AST 169 H (15-37) U/L ALT 74 (12-78) U/L Alkaline Phosphatase 385 H (45-117) U/L Troponin I < 0.015 (0-0.045) ng/ml Total Protein 6.3 L D (6.4-8.2) gm/dl Albumin 2.5 L (3.4-5.0) gm/dl Globulin 3.8 (2.5-4.0) gm/dl Albumin/Globulin Ratio 0.7 L (0.9-2) TSH 7.990 H (0.300-4.500) uIu/ml Free T4 0.71 L (0.8-1.6) ng/dl HCG, Qual (Negative) Salicylates (2.8-20) mg/dl Acetaminophen (10-30) ug/ml Ethyl Alcohol mg/dL < 3.0 (0-3) mg/dl 12/22/19 Range/Units 20:01 WBC (4.8-10.8) K/uL RBC (4.2-5.4) M/uL Hgb (12.0-16.0) g/dL Hct (37-47) % MCV (80-100) fL MCH (25-34) pg MCHC (32-36) g/dL RDW Std Deviation (36.4-46.3) fL RDW Coeff of Meme (11.5-14.5) % Plt Count (130-400) K/uL MPV (7.4-10.4) fL Immature Gran % (Auto) % Neut % (Auto) % Lymph % (Auto) % [place] % (Auto) % Eos % (Auto) % Baso % (Auto) % Neut # (Auto) (1.4-6.5) K/uL Lymph # (Auto) (1.2-3.4) K/uL [place] # (Auto) (0.11-0.59) K/uL Eos # (Auto) (0-0.5) K/uL Baso # (Auto) (0-0.2) K/uL Immature Gran # (Auto) (0.00-0.02) K/uL Stomatocytes PT 11.7 (9.0-12.0) Seconds INR 1.1 (0.9-1.1) Sodium (136-145) mmol/L Potassium (3.5-5.1) mmol/L Chloride (98-107) mmol/L Carbon Dioxide (21-32) mmol/L Anion Gap (3-11) BUN (7-18) mg/dl Creatinine (0.6-1.2) mg/dl Est Cr Clr Drug Dosing ml/min Est GFR ( Amer) Est GFR (Non-Af Amer) BUN/Creatinine Ratio (10-20) Glucose (70-99) mg/dl Lactate (0.4-2.0) mmol/L Calcium (8.5-10.1) mg/dl Phosphorus (2.5-4.9) mg/dl Magnesium (1.8-2.4) mg/dl Total Bilirubin (0.2-1) mg/dl AST (15-37) U/L ALT (12-78) U/L Alkaline Phosphatase (45-117) U/L Troponin I (0-0.045) ng/ml Total Protein (6.4-8.2) gm/dl Albumin (3.4-5.0) gm/dl Globulin (2.5-4.0) gm/dl Albumin/Globulin Ratio (0.9-2) TSH (0.300-4.500) uIu/ml Free T4 (0.8-1.6) ng/dl HCG, Qual (Negative) Salicylates (2.8-20) mg/dl Acetaminophen (10-30) ug/ml Ethyl Alcohol mg/dL (0-3) mg/dl
[2019-12-23] MEDS: VENLAFAXINE HCL XR 150 MG CAPXR PO SCH (09:09)
[2019-12-23 09:49] LABS: Appearance Urine Clear (Clear); Bacteria Urine Automated Negative (Negative); Bilirubin Urine Negative (Negative); Blood Urine Negative (Negative); Cast Urine Automated 0 /lpf (0-5); Color Urine Yellow; Epithelial Cell Urine Auto >30 /lpf (0-5); Glucose Urine UA Negative (Negative); Ketones Urine Negative (Negative); Leukocyte Esterase Urine 1+ (Negative); Nitrite Urine Negative (Negative); Protein Urine Negative (Negative); RBC Urine Automated 0-4 /hpf (0-4); Specific Gravity Urine 1.011 (1.000-1.030); Urobilinogen Urine Negative (Negative); pH Urine 5.5 (4.5-7.5)
[2019-12-23] MEDS: MAGNESIUM OXIDE 400 MG TAB PO SCH (11:15)
[2019-12-23] MEDS: ONDANSETRON INJ 2 MG/ML 2 ML VIAL IV PRN ×2 (13:18→18:52)
[2019-12-23] MEDS ORDERED: MELATONIN 3 MG TAB PO PRN (17:17)
[2019-12-23] MEDS ORDERED: LORazepam 1 MG TAB PO STA (19:52)
[2019-12-23] MEDS: cefTRIAXone SODIUM 2,000 MG in DEXTROSE 5% 50 ML IV SCH (19:59)
--- NOTE | 2019-12-23 23:30 | Electrocardiogram Report ---
Test Reason : Blood Pressure : / mmHG Vent. Rate : 079 BPM Atrial Rate : 079 BPM P-R Int : 168 ms QRS Dur : 088 ms QT Int : 402 ms P-R-T Axes : 049 057 025 degrees QTc Int : 460 ms Normal sinus rhythm Normal ECG When compared with ECG of 20-DEC-2019 11:49, Nonspecific T wave abnormality, improved in Inferior leads T wave inversion less evident in Anterior leads Confirmed by Pramod Carrasco ([id number]) on 12/23/2019 11:30:23 PM Referred By: [facility] Confirmed By:Pramod Carrasco
[2019-12-24 06:07] LABS: Hematocrit (blood only) 27.7 % (37-47); Hemoglobin 8.9 g/dL (12.0-16.0); Immature Granulocytes # (auto) 0.01 K/uL (0.00-0.02); Immature Granulocytes % (auto) 0.3 %; Lymphocytes # (auto) 1.41 K/uL (1.2-3.4); Lymphocytes % (auto) 36.6 %; Mean Corpuscular Hemoglobin 32.1 pg (25-34); Mean Corpuscular Hgb Conc 32.1 g/dL (32-36); Mean Platelet Volume 10.2 fL (7.4-10.4); Monocytes # (auto) 0.56 K/uL (0.11-0.59); Monocytes % (auto) 14.5 %; Neutrophils # (auto) 1.87 K/uL (1.4-6.5); Neutrophils % (auto) 48.6 %; Platelet Count 125 K/uL (130-400); RDW Coefficient of Variation 12.6 % (11.5-14.5); RDW Standard Deviation 45.9 fL (36.4-46.3); Red Blood Count 2.77 M/uL (4.2-5.4); White Blood Count 3.85 K/uL (4.8-10.8)
[2019-12-24 06:25] LABS: Giant Platelets 1+; Stomatocytes 1+
[2019-12-24 06:39] LABS: Albumin Level 2.2 gm/dl (3.4-5.0); BUN Creatinine Ratio 2.6 (10-20); Calcium 8.6 mg/dl (8.5-10.1); Creatinine Clr Calc Pharmacy 132.9 ml/min
[2019-12-24 06:53] LABS: Albumin Globulin Ratio 0.6 (0.9-2); Bilirubin,Total 0.5 mg/dl (0.2-1); Globulin 3.4 gm/dl (2.5-4.0); Total Protein 5.6 gm/dl (6.4-8.2)
[2019-12-24 08:14] LABS: T3 Total 0.93 ng/ml (0.60-1.81); T4 Thyroxine 3.8 mcg/dl (4.5-10.9)
[2019-12-24 08:15] LABS: T3 Free 2.5 pg/ml (2.3-4.2)
[2019-12-24] MEDS: FOLIC ACID 1 MG TAB PO SCH (08:57)
[2019-12-24] MEDS: CEROVITE ADV FORMULA TAB PO SCH (08:58)
[2019-12-24] MEDS: MAGNESIUM OXIDE 400 MG TAB PO SCH (08:58)
[2019-12-24] MEDS: buPROPion SR 150 MG TABCR PO SCH (08:58)
[2019-12-24] MEDS: VENLAFAXINE HCL XR 150 MG CAPXR PO SCH (08:58)
[2019-12-24] MEDS: GABAPENTIN 100 MG CAP PO SCH ×2 (08:59→13:44)
[2019-12-24] MEDS: THIAMINE HCL 100 MG TAB PO SCH (08:59)
[2019-12-24] MEDS: ONDANSETRON INJ 2 MG/ML 2 ML VIAL IV PRN (09:04)
[2019-12-24] MEDS: cefTRIAXone SODIUM 2,000 MG in DEXTROSE 5% 50 ML IV SCH (09:04)
[2019-12-24] MEDS ORDERED: SENNA 8.6 MG TAB PO ONE (11:45)
--- NOTE | 2019-12-24 15:08 | Discharge Summary ---
Date of Service December 24, 2019 Admission HPI Per Admitting Provider DATE OF ADMISSION: 12/22/2019 CHIEF COMPLAINT: Bacteremia. HISTORY OF PRESENT ILLNESS: A 34-year-old female with past medical history significant for alcoholism, tobacco use disorder, sleep disturbance, history of substance abuse, history of chronic back pain who was recently in the hospital, was admitted on 12/19/2019 for alcohol withdrawal seizures, at that time had EEG and MRI scan, which was unremarkable and was thought her seizure was mostly from alcohol withdrawal . Neurology advised no driving for six months and advised to avoid heights or water .Patient has a history of pancreatitis with pancreatic stent placement on 08/29/2019. Pancreatic stent was in place on the CAT scan done last t admission, history of alcoholic hepatitis. GI saw her last admission because of transaminitis, but the LFTs trended down .She was also treated with Rocephin for positive bacteremia. But patient signed against medical advice, after that patient seems to be taken to [facility] Term by Police on 12/21/2019.Because of the bacteremia, the patient was brought in back here for medical clearance. The patient complaints of chronic headache and back pain and some right flank pain. Otherwise, resting comfortably and hemodynamically stable, alert and oriented, somewhat sleepy. Denies any earache, no runny nose, no sore throat, no cough, no chest pain, no shortness of breath, no nausea, no vomiting, no abdominal pain. Normal bowel and bladder movements. Denies any blood in the stools or black stools. Denies any hematuria. No burning micturition, no swelling in the legs. Principal Diagnosis E. coli bacteremia History of alcoholism Abnormal thyroid function test History of Alcoholism with chronic transaminitis Discharge Exam Constitutional cooperative Subjective: patient seen and examined and no acute distress. no acute pain. Patient given thorough explanation of her health issues and encouraged to follow up with discharge instructions Eyes PERRL, conjunctivae normal, anicteric sclerae EOM intact bilaterally ENMT external ear and nose normal, oropharynx normal Neck normal visual inspection Respiratory normal respiratory effort, lungs clear to auscultation Cardiovascular Rate/Rhythm: regular rate Gastrointestinal (Abdomen) normal bowel sounds, soft, nontender, no hepatosplenomegaly Musculoskeletal Head/Neck/Chest: normocephalic and head atraumatic Neurologic PERRL, EOMI, accommodation nl, no face palsy, no dysarthria CN's II-XI intact bilaterally Psychiatric Orientation: alert and oriented x 3 Discharge Data Allergies Allergy/AdvReac Type Severity Reaction Status Date / Time Penicillins Allergy Intermediate HIVES Verified 12/19/19 13:53 Consultations 12/22/19 22:13 ED Decision to Admit Stat 12/23/19 08:35 Consult Gastroenterology Routine Ordered Studies 12/22/19 19:45 CT head/brain wo con Urgent Hospital Course (1) E coli bacteremia: -This is a 34 year old Female who initially presented to [facility] on 12/19/2019 by EMS as called by her roommate because she fell in the bathroom and having tremors after 1 week of malaise which was thought to have been largely due to alcohol withdrawal and suspected Vistaril (Hydroxyzine) overdose. During that admission and workup, patient also found to have E.coli bacteremia - unclear whether the source were from urine or GI source because of of history or ERCP stent that was not remove, Patient was started on IV ceftriaxone on admission because of bacteria in the urine but the urine culture could not identify E.coli because urine culture as "Three types of organisms present, all low counts probable skin gardenia." While being empirically on IV ceftriaxone 2 grams IV q24 hours, patient's admission blood culture positive for pansensitive E.coli. Based on chart review she received IV ceftriaxone on 12/19/19 and 12/20/2019. However on 12/21/2019, patient signed out against medical advice and did not get the third dose of IV ceftriaxone. Patient also had legal issues and upon her signing out against medical advice, patient went under the immediate custody of [place] [employer] and brought to [facility] correctional facility. On 12/22/2019 Hospitalist reached out to medical staff at [facility] to bring to their attention that patient has not received full course of antibiotic treatment for the E.coli bacteremia. In response, the [facility] correctional facility returned patient to [facility] for medical re-evaluation on night time of 12/22/2019. Patient is admitted and again resumed IV ceftriaxone daily -patient was given IV ceftriaxone daily. The blood cultures from 12/21/2019 and 12/22/2019 with no growth to date. Patient was released from police custody in the afternoon of 12/23/2019 -discharge to home on 12/24/2019 with transition of antibiotics to oral ciprofloxacin. Discussed with patient that she has remaining stent in pancreatitic duct from history of ERCP in August 2019 that gastroenterology have scheduled for removal as outpatient -patient advised to avoid alcohol [facility] [place] [id number] of daily multivitamins, thiamine, folic acid of levothyroxine 25 mcg daily - patient should take before breakfast daily of ciprofloxacin 500 mg every 12 hours for 7 days scheduled appointments 12/30/2019 10:20 AM Provider Thais Islas MD Department General Internal Medicine [facility] Date: 01/18/2020 Time: 8:00 AM Status: Scheduled Location: END[facility]COPY [facility] Mae Shea MD Primary Gastroenterology Procedure: ENDOSCOPIC RETROGRADE CHOLANGIOPANCREATOGRAPHY (ERCP) stent removal (2) Transaminitis: -chronically elevated levels from history of alcohol use in the past History of alcoholism suspected alcohol withdrawal seizures (prior to admission on 12/19/2019) -no alcohol withdrawal symptoms at this time -on first admission her EEG and MRI was unremarkable and advised seizure precautions of: no driving for six months, avoid heights and water -continue with folic acid and thiamine. Thrombocytopenia -chronic likely from alcohol effects on liver chronic anemia -blood counts are stable Anxiety -suspected misuse of Vistaril at home on previous admission -hold off anxiolytics unless there are signs of substance withdrawal at this time (3) Hypokalemia: -the re-admission serum serum potassium of 3 -patient received potassium supplements and serum potassium is 3.5 on 12/23/2019 -currently serum potassium at goal (4) Hypomagnesemia: -currently serum magnesium at goal (5) Abnormal thyroid function test: -elevated TSH of 7.99 on 12/22/2019 and re-measured as 13.6 on 12/23/2019, free T4 mildly low as 0.71 ng/dl -possible hypothyroidism versus abnormal thyroid labs from illness, total T4 mildly low as 3.8 mcg/dl, normal total T3 as 0.93 ng/ml, normal free T3 of 2.5 pg/ml -when patient asked about history of thyroid problems she reported that years ago she was told she may have an under active thyroid function but not low enough for being on thyroid medications -patient to be given prescription of levothyroxine 25 mcg daily and advised to follow up with primary care doctor for repeat thyroid labs History of tobacco use -family doctor follow up Total Time Total Time Spent Total Time Spent (In Minutes): 40 minutes Total Time Includes: Examination of the Patient, Discharge Planning, Medication Reconciliation and Communication With Other Providers Discharge Plan Discharge Items Patient Disposition: Home - Self-Care Reason For Visit: BACTEREMIA Discharge Diagnosis: E. coli bacteremia History of alcoholism Abnormal thyroid function test History of Alcoholism with chronic transaminitis Condition on Discharge: Good Activity: Per Instructions section Non-emergency contact: Primary Care Provider Call non-emergency contact if: you have any medication questions Follow-up/Referrals: Nazario Perez MD [Primary Care Provider] - Diet: Regular Addtl Attending Provider Instructions: patient advised to avoid alcohol [facility]charge [facility] [place] [id number] of daily multivitamins, thiamine, folic acid of levothyroxine 25 mcg daily - patient should take before breakfast daily of ciprofloxacin 500 mg every 12 hours for 7 days scheduled appointments 12/30/2019 10:20 AM Provider Thais Islas MD Department General Internal Medicine [facility] Date: 01/18/2020 Time: 8:00 AM Status: Scheduled Location: ENDOSCOPY [facility] Mae Shea MD Primary Gastroenterology Procedure: ENDOSCOPIC RETROGRADE CHOLANGIOPANCREATOGRAPHY (ERCP) stent removal Addtl Self Defense Instructor Provider Instructions: -elevated TSH of 7.99 on 12/22/2019 and re-measured as 13.6 on 12/23/2019, free T4 mildly low as 0.71 ng/dl -possible hypothyroidism versus abnormal thyroid labs from illness, total T4 mildly low as 3.8 mcg/dl, normal total T3 as 0.93 ng/ml, normal free T3 of 2.5 pg/ml -when patient asked about history of thyroid problems she reported that years ago she was told she may have an under active thyroid function but not low enough for being on thyroid medications -patient to be given prescription of levothyroxine 25 mcg daily and advised to follow up with primary care doctor for repeat thyroid labs Pending Studies at Discharge: No Stand-Alone Forms: My [employer], Smoking Cessation Medications and DC Order Prescriptions: New thiamine HCl (vitamin B1) [Vitamin B-1] 100 mg Tablet 100 mg PO QAM 30 Days Qty: 30 RF: 0 folic acid 1 mg Tablet 1 mg PO QAM 30 Days Qty: 30 RF: 0 Certavite-Antioxidant 18-400 mg-mcg Tablet 1 tab PO QAM 30 Days Qty: 30 RF: 0 ciprofloxacin HCl 500 mg Tablet 500 mg PO Q12H 7 Days Qty: 14 RF: 0 Discontinued bupropion HCl [Wellbutrin SR] 150 mg tablet sustained-release 12 hr 300 mg PO DAILY RF: 0 venlafaxine 150 mg capsule,extended release 24hr 300 mg PO DAILY RF: 0 gabapentin 100 mg capsule 100 mg PO TID 30 Days Qty: 90 RF: 0 hydroxyzine pamoate [Vistaril] 50 mg capsule 50 mg PO TID RF: 0 Discharge Orders: Discharge Order (Routine); Ordered 12/24/19 Ordered By: George Sales Admission Data Admit Date/Time: 12/22/19 23:50 Attending Provider: George Sales Admit Provider: Dale Figueroa Primary Care Provider: Nazario Perez Other Providers: Dale Figueroa ; France Hu
[2019-12-24] MEDS ORDERED: CIPROFLOXACIN 500 MG TAB PO SCH (15:15)
[2019-12-25] MEDS ORDERED: LEVOTHYROXINE SODIUM 25 MCG TABLET PO SCH (06:30)
== END 2019-12-24 17:42 | disposition home or self-care (01) | DRG 872 ==
LOC: ED 18:49 → 3E 23:50 → INTOOBSV 23:50 → SUATTDRO 23:50 → 3E 12-23 00:24

== ENCOUNTER 2020-03-12 18:49 | Inpatient (IN) ==
[~2020-03-12 18:49] MED LIST changes: +ETOMIDATE 2 MG/ML 20 ML VIAL IV ONE; -ONDA4TAB10 SL; +ROCURONIUM BROMIDE 10 MG/ML 5 ML VIAL IV ONE
[2020-03-12] MEDS ORDERED: SODIUM CHLORIDE 0.9% 1000ML 1,000 ML IV SCH ×2 (19:00→19:56)
[2020-03-12] MEDS: SODIUM CHLORIDE 0.9% 1000ML 1,000 ML IV SCH ×2 (19:07→19:21)
[2020-03-12] MEDS ORDERED: SODIUM BICARB 8.4% INJ 50 MEQ/50 ML SYR IV ONE (19:13)
[2020-03-12] MEDS ORDERED: MAGNESIUM SULFATE 1GM / D5W BAG IV ONE (19:13)
[2020-03-12] MEDS ORDERED: SODIUM BICARB 8.4% INJ 50 MEQ/50 ML SYR IV STA ×2 (19:14→19:16)
[2020-03-12 19:16] LABS: Eosinophils # (auto) 0.01 K/uL (0-0.5); Eosinophils % (auto) 0.1 %; Hematocrit (blood only) 32.7 % (37-47); Hemoglobin 11.4 g/dL (12.0-16.0); Immature Granulocytes # (auto) 0.01 K/uL (0.00-0.02); Immature Granulocytes % (auto) 0.1 %; Lymphocytes # (auto) 2.54 K/uL (1.2-3.4); Lymphocytes % (auto) 29.8 %; Mean Corpuscular Hemoglobin 32.4 pg (25-34); Mean Corpuscular Hgb Conc 34.9 g/dL (32-36); Mean Corpuscular Volume 92.9 fL (80-100); Monocytes # (auto) 0.83 K/uL (0.11-0.59); Monocytes % (auto) 9.7 %; Neutrophils # (auto) 5.13 K/uL (1.4-6.5); Neutrophils % (auto) 60.3 %; Platelet Count 197 K/uL (130-400); RDW Coefficient of Variation 14.3 % (11.5-14.5); RDW Standard Deviation 48.3 fL (36.4-46.3); Red Blood Count 3.52 M/uL (4.2-5.4); White Blood Count 8.52 K/uL (4.8-10.8)
[2020-03-12] MEDS ORDERED: DEXTROSE 50% 50 ML SYRINGE IV ONE (19:21)
[2020-03-12] MEDS: MAGNESIUM SULFATE / D5W 1 GM/100 ML BAG IV SCH ×2 (19:21→19:47)
[2020-03-12 19:28] LABS: INR 1.1 (0.9-1.1); Partial Thromboplastin Time 27.9 Seconds (21.0-31.0); Prothrombin Time 11.9 Seconds (9.0-12.0)
[2020-03-12 19:29] LABS: Appearance Urine Clear (Clear); Bacteria Urine Automated 1+ (Negative); Bilirubin Urine Negative (Negative); Blood Urine 1+ (Negative); Color Urine Yellow; Epithelial Cell Urine Auto >30 /lpf (0-5); Glucose Urine UA Negative (Negative); Ketones Urine Negative (Negative); Leukocyte Esterase Urine 2+ (Negative); Nitrite Urine Negative (Negative); Protein Urine Negative (Negative); RBC Urine Automated 0-4 /hpf (0-4); Urobilinogen Urine Negative (Negative)
[2020-03-12] MEDS ORDERED: RAPID SEQUENCE INDUCTION BAG ONE (19:30)
[2020-03-12 19:32] LABS: Alanine Aminotransferase 62 U/L (12-78); Albumin Level 3.1 gm/dl (3.4-5.0); Aspartate Aminotransferase 133 U/L (15-37); BUN Creatinine Ratio 9.8 (10-20); Blood Urea Nitrogen 10 mg/dl (7-18); Calcium 7.7 mg/dl (8.5-10.1); Carbon Dioxide 17 mmol/L (21-32); Chloride 111 mmol/L (98-107); Est GFR (African American) 85.3; Est GFR (Non-African American) 73.6; Glucose 74 mg/dl (70-99); Potassium 3.3 mmol/L (3.5-5.1); Sodium 144 mmol/L (136-145)
[2020-03-12 19:42] LABS: Albumin Globulin Ratio 0.9 (0.9-2); Alkaline Phosphatase 232 U/L (45-117); Bilirubin,Total 0.6 mg/dl (0.2-1); Globulin 3.4 gm/dl (2.5-4.0); Total Protein 6.5 gm/dl (6.4-8.2)
[2020-03-12] MEDS ORDERED: SODIUM BICARBONATE 8.4% 150 MEQ in DEXTROSE 5% 1,000 ML IV SCH (19:45)
[2020-03-12 19:53] LABS: Base Excess VBG -11.8 mEq/L; Oxygen Saturation VBG 63.4 %; pH VBG 7.13 (7.36-7.41)
[2020-03-12 19:55] LABS: Acetaminophen < 2 ug/ml (10-30); Salicylate < 1.7 mg/dl (2.8-20); T4 Free Thyroxine 0.67 ng/dl (0.8-1.6)
--- NOTE | 2020-03-12 20:00 | XRay Report ---
XR chest 1V portable HISTORY: SEPSIS COMPARISON: Chest 12/22/2019. FINDINGS: Endotracheal tube is at the level of the right mainstem bronchus. This report back by appro ximately 3 cm. No pneumothorax. No pleural effusions. Cardiac silhouette is borderline enlarged. This could be accentuated by the AP portable technique. No focal lung consolidations to suggest pneumonia . No evidence for pulmonary edema. No acute fractures identified. Nasogastric tube terminates in the stomach. IMPRESSION: 1. Endotracheal tube terminates at the right mainstem bronchus. This should be pulled back by approxi mately 3 cm. 2. These findings were discussed with Dr. Benítez at 8:00 PM on 03/12/2020. ACT 112: Negative or not required by law. Electronically signed by: Marcellus Ochoa M.D. 03/12/2020 8:00 PM
[2020-03-12 20:04] LABS: Amphetamines+Metham, Urine Neg (Neg); Barbiturates, Urine Neg (Neg); Benzodiazepine, Urine Neg (Neg); Cocaine, Urine Neg (Neg); MDMA (Ecstacy), Urine Pos (Neg); Methadone, Urine Neg (Neg); Opiate, Urine Neg (Neg); Phencyclidine, Urine Neg (Neg)
[2020-03-12 20:06] LABS: Creatine Kinase 97 U/L (26-192)
[2020-03-12] MEDS: Standard Conc 16mcg/mL; 8mg in 500mL IV SCH (20:26)
[2020-03-12 20:51] LABS: Base Excess VBG -5.5 mEq/L; Oxygen Saturation VBG 89.3 %; pH VBG 7.25 (7.36-7.41)
[2020-03-12] MEDS ORDERED: VANCOMYCIN CONSULT ACTIVE PRN (20:54)
[2020-03-12] MEDS ORDERED: CEFEPIME 2,000 MG/20 ML VIAL IV STA (20:54)
[2020-03-12] MEDS ORDERED: VANCOMYCIN HCL 1,250 MG in SODIUM CHLORIDE 0.9% 500 ML IV ONE (20:54)
[2020-03-12] MEDS ORDERED: THIAMINE HCL 100 MG in SYRINGE 9 ML IV STA (20:59)
--- NOTE | 2020-03-12 21:13 | History & Physical Report ---
Date of Service March 12, 2020 Assessment & Plan (1) Encephalopathy: Status post intubation at the ER Multifactorial : Polysubstance overdose secondary to suicidality (Bupropion, NSAID, gabapentin, hold levothyroxine prescription) Recurrent alcohol withdrawal seizures (threshold lowered by home Bupropion) Septic shock ? Recurrent UTI AGMA secondary to illness mood disorder, suboptimal history opioid abuse as per records chronic anemia, hemoglobin better than baseline likely secondary to hemoconcentration chronic thrombocytopenia hypothyroidism, persistent TSH elevation from last admission, not currently on medications (inactive Levothyroxine prescription found on review of outpatient records) ICU Vent management Follow Toxicology recommendations Appropriate to hold home neuropsychotropic meds IVF, follow lactic acid Cultures, Cefepime, Daptomycin Continue Levophed DT precautions Cautions, Ativan as needed Neurology consult Re: Recurrent seizures Psych consult once patient awake RE suicidality Initiate daily levothyroxine. Social service RE discharge planning DVT prophylaxis with SCDs Re: Thrombocytopenia Full code Patient's mother requesting updates from providers. Ms. Lori Cano, contact #[phone]. History of Present Illness Chief Complaint: Unresponsive at home, overdose as per records Primary Care Provider: Nazario Perez MD History obtained from family and records. Unable to obtain history from patient secondary to intubated state Medical history significant for mood disorder, history opioid abuse as per records, chronic anemia (baseline hemoglobin 8-9), chronic thrombocytopenia, hypothyroidism, history of alcohol withdrawal seizures, ongoing tobacco/alcohol abuse. Last confinement December 2019 for E. coli bacteremia. Patient discharged ciprofloxacin course. Patient broke up with her boyfriend a few days ago. Patient voiced suicidal intent as per patient's mother which patient does from time to time. Patient's mother got worried when patient was not picking up her phone the last 2 days. Patient's mother spoke to patient's ex-boyfriend who later found patient unresponsive and on the floor at patient's home. Empty bottles of bupropion, Advil, Gabapentin, iron supplement, and Levothyroxine found at patient's home along with a suicide note. Patient later witnessed to have generalized tonic-clonic seizures by EMS. Patient hypotensive upon arrival at the ER. Patient subsequently intubated. NSS bolus, cefepime, Levophed, and bicarb drip administered at the ER. 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 Allergies Allergy/AdvReac Type Severity Reaction Status Date / Time Penicillins Allergy Intermediate HIVES Verified 12/19/19 13:53 Past Med/Surg History Medical History Alcohol withdrawal seizure Alcoholism Alcoholism Ascites Drug overdose Elevated lactic acid level Gram-positive cocci bacteremia Headache Hypokalemia Hypomagnesemia Hypomagnesemia Motrin overdose No significant active problems Prolonged Q-T interval on ECG Sepsis Severe acute pancreatitis Tobacco use Transaminitis UTI (urinary tract infection) Weakness Surgical History S/P appendectomy S/P ERCP Social History Smoking Status: Current every day smoker Tobacco Cessation Education Requested by Patient: No (Unable to answer) Hx Alcohol Use: Yes Alcohol type: hard liquor Hx Substance Use: No Preferred Language: Korean Communication Ability: Impaired Operating System Designer Required: No Beliefs That Will Affect Care: None marital status: Single Current Living Situation: Other Current Living Situation Comment: Friend Other Information That Helps Us Care for You: No Feels Safe at Home: Yes Assistive Devices: Oxygen - Continuous Review of Systems Review of Systems: Could not be reliably obtained Physical Exam Physical Exam: GENERAL: Intubated, no respiratory distress SKIN: Pallor, cool HEENT: Pale palpebral conjunctivae, no ptosis, dry buccal mucosa, ETT in place NECK : Supple, no tenderness CHEST : Decreased breath sounds, no tenderness HEART : Tachycardic, no obvious murmurs ABDOMEN: Some distention, nontender EXTREMITIES : No LE swelling/tenderness, no other conspicuous deformities noted NEUROLOGIC : Unresponsive, dilated pupils, no facial asymmetry, no other gross focality Results & Data Results & Data ([facility]) Vital Signs (Past 12 Hours) Vital Signs Temp Pulse Resp BP Pulse Ox 03/12/20 18:55 34.1 C L 110 H 16 67/38 L 92 Laboratory Results Laboratory Results WBC 8.52 K/uL (4.8-10.8) 03/12/20 18:55 RBC 3.52 M/uL (4.2-5.4) L 03/12/20 18:55 Hgb 11.4 g/dL (12.0-16.0) L 03/12/20 18:55 Hct 32.7 % (37-47) L 03/12/20 18:55 MCV 92.9 fL (80-100) 03/12/20 18:55 MCH 32.4 pg (25-34) 03/12/20 18:55 MCHC 34.9 g/dL (32-36) 03/12/20 18:55 RDW Std Deviation 48.3 fL (36.4-46.3) H 03/12/20 18:55 RDW Coeff of Meme 14.3 % (11.5-14.5) 03/12/20 18:55 Plt Count 197 K/uL (130-400) 03/12/20 18:55 MPV 9.0 fL (7.4-10.4) 03/12/20 18:55 Immature Gran % (Auto) 0.1 % 03/12/20 18:55 Neut % (Auto) 60.3 % 03/12/20 18:55 Lymph % (Auto) 29.8 % 03/12/20 18:55 [place] % (Auto) 9.7 % 03/12/20 18:55 Eos % (Auto) 0.1 % 03/12/20 18:55 Baso % (Auto) 0.0 % 03/12/20 18:55 Neut # (Auto) 5.13 K/uL (1.4-6.5) 03/12/20 18:55 Lymph # (Auto) 2.54 K/uL (1.2-3.4) 03/12/20 18:55 [place] # (Auto) 0.83 K/uL (0.11-0.59) H 03/12/20 18:55 Eos # (Auto) 0.01 K/uL (0-0.5) 03/12/20 18:55 Baso # (Auto) 0.00 K/uL (0-0.2) 03/12/20 18:55 Immature Gran # (Auto) 0.01 K/uL (0.00-0.02) 03/12/20 18:55 PT 11.9 Seconds (9.0-12.0) 03/12/20 18:55 INR 1.1 (0.9-1.1) 03/12/20 18:55 APTT 27.9 Seconds (21.0-31.0) 03/12/20 18:55 PTT Ratio 1.0 03/12/20 18:55 VBG pH 7.25 (7.36-7.41) L 03/12/20 20:42 VBG pCO2 50 mmHg (38-50) 03/12/20 20:42 VBG pO2 71 mmHg 03/12/20 20:42 VBG HCO3 22 mmol/L 03/12/20 20:42 VBG O2 Saturation 89.3 % 03/12/20 20:42 VBG Base Excess -5.5 mEq/L 03/12/20 20:42 Barometric Pressure 733.1 mm/Hg 03/12/20 20:42 Sodium 144 mmol/L (136-145) 03/12/20 18:55 Potassium 3.3 mmol/L (3.5-5.1) L 03/12/20 18:55 Chloride 111 mmol/L (98-107) H 03/12/20 18:55 Carbon Dioxide 17 mmol/L (21-32) L 03/12/20 18:55 Anion Gap 16.0 (3-11) H 03/12/20 18:55 BUN 10 mg/dl (7-18) 03/12/20 18:55 Creatinine 1.01 mg/dl (0.6-1.2) 03/12/20 18:55 Est Cr Clr Drug Dosing Not Reportable 03/12/20 18:55 Est GFR ( Amer) 85.3 03/12/20 18:55 Est GFR (Non-Af Amer) 73.6 03/12/20 18:55 BUN/Creatinine Ratio 9.8 (10-20) L 03/12/20 18:55 Glucose 74 mg/dl (70-99) 03/12/20 18:55 POC Glucose 71 mg/dl (70-99) 03/12/20 19:20 Lactate 8.0 mmol/L (0.4-2.0) H* 03/12/20 18:55 Calcium 7.7 mg/dl (8.5-10.1) L 03/12/20 18:55 Magnesium 2.0 mg/dl (1.8-2.4) 03/12/20 18:55 Total Bilirubin 0.6 mg/dl (0.2-1) 03/12/20 18:55 AST 133 U/L (15-37) H 03/12/20 18:55 ALT 62 U/L (12-78) 03/12/20 18:55 Alkaline Phosphatase 232 U/L (45-117) H 03/12/20 18:55 Total Creatine Kinase 97 U/L (26-192) 03/12/20 18:55 Total Creatine Kinase Cancelled 03/12/20 18:55 Total Protein 6.5 gm/dl (6.4-8.2) 03/12/20 18:55 Albumin 3.1 gm/dl (3.4-5.0) L 03/12/20 18:55 Globulin 3.4 gm/dl (2.5-4.0) 03/12/20 18:55 Albumin/Globulin Ratio 0.9 (0.9-2) 03/12/20 18:55 TSH 9.030 uIu/ml (0.300-4.500) H 03/12/20 18:55 Free T4 0.67 ng/dl (0.8-1.6) L 03/12/20 18:55 Urine Color Yellow 03/12/20 19:11 Urine Appearance Clear (Clear) 03/12/20 19:11 Urine pH 5.0 (4.5-7.5) 03/12/20 19:11 Ur Specific [place] 1.010 (1.000-1.030) 03/12/20 19:11 Urine Protein Negative (Negative) 03/12/20 19:11 Urine Glucose (UA) Negative (Negative) 03/12/20 19:11 Urine Ketones Negative (Negative) 03/12/20 19:11 Urine Blood 1+ (Negative) H 03/12/20 19:11 Urine Nitrite Negative (Negative) 03/12/20 19:11 Urine Bilirubin Negative (Negative) 03/12/20 19:11 Urine Urobilinogen Negative (Negative) 03/12/20 19:11 Ur Leukocyte Esterase 2+ (Negative) H 03/12/20 19:11 Urine WBC (Auto) 5-10 /hpf (0-5) H 03/12/20 19:11 Urine RBC (Auto) 0-4 /hpf (0-4) 03/12/20 19:11 U Hyaline Cast (Auto) 1-5 /lpf (0-5) 03/12/20 19:11 U Epithel Cells (Auto) >30 /lpf (0-5) H 03/12/20 19:11 Urine Bacteria (Auto) 1+ (Negative) H 03/12/20 19:11 Salicylates < 1.7 mg/dl (2.8-20) L 03/12/20 18:55 Urine Opiates Screen Neg (Neg) 03/12/20 19:11 Ur Methadone, Qual Neg (Neg) 03/12/20 19:11 Acetaminophen < 2 ug/ml (10-30) L 03/12/20 18:55 Urine Barbiturates Neg (Neg) 03/12/20 19:11 Ur Phencyclidine (PCP) Neg (Neg) 03/12/20 19:11 U Amphetamin/Meth Scrn Neg (Neg) 03/12/20 19:11 MDMA (Ecstasy) Screen Pos (Neg) H 03/12/20 19:11 U Benzodiazepines Scrn Neg (Neg) 03/12/20 19:11 Ur Cocaine Metabolite Neg (Neg) 03/12/20 19:11 U Marijuana (THC) Screen Neg (Neg) 03/12/20 19:[address] head initial read: No ICH, mass-effect or edema. No skull fracture. Stable right parietal scalp sebaceous cyst. Chest x-ray as per my dictation cardiomegaly EKG as per my interpretation :Rate 130, SVT, normal axis, incomplete RBBB, diffuse T wave abnormalities, QTC 570
[2020-03-12] MEDS ORDERED: ACETAMINOPHEN 1,000 MG/100 ML VIAL IV PRN (21:31)
[2020-03-12 22:03] LABS: Influenza A virus by PCR Negative (Neg); Influenza B virus by PCR Negative (Neg); RSV by PCR Negative (Neg); SARS CoV2 RNA(COVID-19) InHosp NEGATIVE (Negative)
--- NOTE | 2020-03-12 22:11 | Critical Care Consultation ---
Date of Consultation March 12, 2020 Assessment & Plan (1) Admitted to intensive care unit: Reason Critically Ill: Patient admitted to ICU with intentional polysubstance overdose with suicide attempt, currently requiring intubation, vasopressors, bicarb drip. Neuro - Intentional overdose/suicide attempt/seizures/metabolic encephalopathypatient reported to have overdosed on Wellbutrin, Effexor, levothyroxine, alcohol, iron, and ibuprofen as empty bottles were found next to patient with suicide note -Acetaminophen and salicylates negative -UDS positive for MDMA and EtOH of 180, trending -Initial iron of 215, downtrending to 170. Did speak with toxicology regarding benefit of deferoxamine which was not recommended as patient improving and proceed with supportive care. -CT head negative for acute process -Currently intubated for airway protection, sedation with propofol -Follow-up EEG in a.m. -Currently 302'd, will need psych eval once medically stable -Toxicology following, recommend continuation of supportive care -Trending EKGs, continue bicarb drip, continue with ventilator support -Continue with ICU management at this time Cardiac - Hypotensionmost likely secondary to intentional drug overdose, however cannot rule out sepsis at this time especially with patient's history of IV drug abuse and gram-positive bacteremia -Troponin negative, EKG with prolonged QTC and QRS -Echo from August 2019 within normal EF 60 to 65%, no significant valvular disease -See ID management below -Central line and A-line inserted, titrating levo for maps greater than 65 Prolonged QTCtrending EKGs every 4 hours for QTC monitoring. Repleting electrolytes for potassium greater than 4 and magnesium greater than 2. -Continuous monitoring on telemetry Respiratory - Mechanically ventilatedintubated in the emergency department for airway protection following seizures and altered mental status after intentional drug overdose with polypharmacy -Current vent settings 24/370/5/30 percent, monitoring routine ABGs and adjusting appropriately -No evidence of active pulmonary disease on chest x-ray -Continuous monitoring on pulse ox GI - N.p.o., OG tube to low intermittent suction Lipase within normal limits Transaminitisconsistent with prior studies on admission, will trend this patient at risk for hepatic injury with polypharmacy ingestion -Ammonia within normal limits -We will continue to trend hepatic function panel -Of note patient did have ERCP in August and stent remaining on imaging, may need follow-up with GI RENAL/LYTES - Creatinine within normal limits, will continue to monitor as patient is at risk for renal injury with ibuprofen ingestion Metabolic acidosisimproving and lactic acidosis now cleared, continue bicarb drip and monitor with frequent ABGs - Foleystrict I's and O's ENDO - Hypoglycemiaimproved with dextrose administration -No history diabetes Elevated TSHpatient's TSH of 9 and low T4, hold treatment as patient with reported overdose including levothyroxine -We will repeat in a.m. HEME - H&H within normal limits, monitor CBC and coags and monitor closely for signs of bleeding ID - Sepsis?Patient presents with lactic acidosis and hypotension, however no leukocytosis and pro calcitonin within normal limits -No obvious signs of aspiration on chest x-ray -Patient does have history of gram-positive bacteremia and IV drug abuse -UA positive for bacteria could be potential source -Continue with Dapto and cefepime for now -Blood cultures and urine culture pending -COVID-19 negative LINES/IV ACCESS - CVC, A-line, peripheral IVs, OGT, ETT DVT PROPHYLAXIS - SCDs I have personally spent 85 minutes of critical care time in the direct management of this patient. This is a life/limb threatening event. This includes time spent evaluating patient, direct bedside care, chart review, placing orders, interpretation of diagnostic studies, discussion with consultants, patient, and family members, as well as other required patient management activities. This time is exclusive of all separately billable procedures, and teaching time and separate from and in addition to any other critical care service time. Thank you for allowing us to participate in the care of this patient. Please refer to my attending physician's documentation for any further recommendations. (2) Polysubstance overdose: (3) Hypothermia: (4) UTI (urinary tract infection): (5) Prolonged Q-T interval on ECG: (6) Elevated lactic acid level: (7) Transaminitis: (8) Abnormal thyroid function test: (9) Electrolyte abnormality: (10) Increased anion gap metabolic acidosis: (11) Alcoholism: (12) Mood disorder: History of Present Illness History of Present Illness Patient is a 34-year-old female with PMH including alcoholism, IV drug abuse, psychiatric history, intentional drug overdose, GPC bacteremia, seizure from alcohol withdrawal, acute pancreatitis. EMS reportedly found the patient at home with multiple scattered empty pill bottles and a suicide note. Patient was noted to have seizure which was witnessed by police and again in route and was given 2.5 mg Versed in route. She was brought to the emergency department where she was intubated. Per report empty medicine bottles including Wellbutrin, Effexor, ibuprofen, ferrous sulfate, and levothyroxine were found at the scene. She was also noted to be positive for EtOH and MDMA on lab work. Salicylates and acetaminophen were negative. Central line was inserted following intubation. She was noted to have a significant metabolic acidosis and anion gap and was started on bicarb drip. She was also hypotensive and tachycardic and started on Levophed drip. QRS and QTc were prolonged on EKG and she was given magnesium transfusion. KUB did not show evidence of pill-shaped radiodensities in the stomach. Poison control/toxicology following and recommends supportive care. Patient admitted to ICU for further management at this time. Allergies Allergy/AdvReac Type Severity Reaction Status Date / Time Penicillins Allergy Intermediate HIVES Verified 12/19/19 13:53 Patient History Medical History Alcohol withdrawal seizure Alcoholism Alcoholism Ascites Drug overdose Elevated lactic acid level Gram-positive cocci bacteremia Headache Hypokalemia Hypomagnesemia Hypomagnesemia Motrin overdose No significant active problems Prolonged Q-T interval on ECG Sepsis Severe acute pancreatitis Tobacco use Transaminitis UTI (urinary tract infection) Weakness Surgical History S/P appendectomy S/P ERCP Social History Smoking Status: Current every day smoker Tobacco Cessation Education Requested by Patient: No (Unable to answer) Hx Alcohol Use: Yes Alcohol type: hard liquor Hx Substance Use: No Preferred Language: Mongolian Communication Ability: Unable Political Director Required: No Beliefs That Will Affect Care: None marital status: Single Current Living Situation: Other Current Living Situation Comment: Friend Other Information That Helps Us Care for You: No Feels Safe at Home: Yes Assistive Devices: Oxygen - Continuous Review of Systems Review of Systems: Unobtainable due to cognitive status and Unobtainable due to endotracheal tube Physical Exam Constitutional: + frail appearing and + mechanically ventilated Eyes: + dilated pupils ENMT: external ear and nose normal, oropharynx normal Neck: trachea midline, no thyromegaly Respiratory: Mechanically ventilated, lungs clear to auscultation bilaterally, symmetrical chest wall movement Cardiovascular: Rate/Rhythm: + tachycardic Heart Sounds: normal S1 and normal S2; no murmur Vessels: no JVD Extremities: normal capillary refill; no edema Gastrointestinal (Abdomen): Abdomen soft, nondistended. Bowel sounds auscultated in all 4 quadrants Musculoskeletal: Unable to assess due to paralytics on board Neurologic: Pupils dilated. Unable to assess neurological exam at this time due to paralytics on board from intubation. Psychiatric: Unable to assess at this time due to paralytics/ET tube/sedation Genitourinary: Indwelling Gramajo catheter Results & Data Results & Data ([facility]) Vital Signs (Past 12 Hours) Vital Signs Temp Pulse Resp BP Pulse Ox 03/12/20 21:45 123 H 92/51 L 96 03/12/20 21:33 34.8 C L 122 H 88/48 L 97 03/12/20 21:25 120 H 87/50 L 98 03/12/20 21:22 121 H 87/50 L 99 03/12/20 21:15 120 H 87/53 L 99 03/12/20 21:12 120 H 90/51 L 99 03/12/20 21:10 118 H 92/51 L 99 03/12/20 21:07 118 H 92/49 L 100 03/12/20 21:06 118 H 91/51 L 100 03/12/20 20:45 116 H 92/53 L 100 03/12/20 20:42 115 H 93/53 L 94 03/12/20 20:40 115 H 91/51 L 94 03/12/20 20:37 114 H 90/53 L 95 03/12/20 20:35 113 H 90/53 L 95 03/12/20 20:33 113 H 87/54 L 93 03/12/20 20:30 112 H 91/53 L 97 03/12/20 20:27 110 H 88/51 L 98 03/12/20 20:25 105 H 66/36 L 98 03/12/20 20:22 105 H 66/34 L 98 03/12/20 20:20 104 H 66/37 L 99 03/12/20 20:17 105 H 65/37 L 99 03/12/20 20:15 104 H 65/38 L 99 03/12/20 20:12 104 H 66/38 L 100 03/12/20 20:10 103 H 66/38 L 100 03/12/20 20:07 103 H 69/38 L 100 03/12/20 20:05 103 H 69/39 L 100 03/12/20 20:03 102 H 66/38 L 100 03/12/20 20:01 102 H 100 03/12/20 20:00 102 H 16 69/38 L 100 03/12/20 19:57 101 H 68/38 L 03/12/20 19:55 101 H 16 67/40 L 100 03/12/20 19:52 101 H 16 64/38 L 03/12/20 19:50 101 H 16 65/38 L 03/12/20 19:48 101 H 13 67/36 L 03/12/20 19:45 101 H 16 67/39 L 98 03/12/20 19:44 100 H 17 65/39 L 100 03/12/20 19:42 100 H 17 64/37 L 100 03/12/20 19:40 100 H 17 67/40 L 100 03/12/20 19:37 100 H 19 60/39 L 90 03/12/20 19:35 101 H 17 60/37 L 90 03/12/20 19:31 99 H 17 94 03/12/20 19:30 99 H 17 58/37 L 97 03/12/20 19:28 98 H 18 60/34 L 03/12/20 19:25 98 H 17 59/33 L 95 03/12/20 19:22 101 H 16 70/41 L 87 L 03/12/20 19:20 102 H 15 69/41 L 90 03/12/20 19:17 103 H 16 71/42 L 94 03/12/20 19:15 103 H 17 61/39 L 99 03/12/20 19:10 105 H 19 66/40 L 100 03/12/20 19:05 107 H 19 65/39 L 100 03/12/20 19:01 109 H 17 93 03/12/20 18:55 34.1 C L 110 H 16 67/38 L 92 Coding Level of Care Code Critical Care ea addt'l 30 min Diagnoses Admitted to intensive care unit Z78.9 Polysubstance overdose T50.902A Encounter type: initial encounter Injury intent: intentional self-harm Hypothermia T68.XXXA Encounter type: initial encounter UTI (urinary tract infection) N39.0 Prolonged Q-T interval on ECG R94.31 Elevated lactic acid level R79.89 Transaminitis R74.01 Abnormal thyroid function test R94.6 Electrolyte abnormality E87.8 Increased anion gap metabolic acidosis E87.2 Alcoholism F10.20 Mood disorder F39 (1) Hypothermia Encounter type: initial encounter Qualified Code(s): T68.XXXA - Hypothermia, initial encounter (2) Polysubstance overdose Encounter type: initial encounter Injury intent: intentional self-harm Qualified Code(s): T50.902A - Poisoning by unspecified drugs, medicaments and biological substances, intentional self-harm, initial encounter
[2020-03-12] MEDS ORDERED: STAT IV Infusion **Titration per Protocol STA (22:51)
[2020-03-12] MEDS ORDERED: PROPOFOL BOLUS FROM BAG IV PRN (22:51)
[2020-03-12 23:13] LABS: Iron 215 mcg/dl (35-150)
[2020-03-12] MEDS ORDERED: LORazepam 0.5 MG/1 ML VIAL IV PRN (23:17)
[2020-03-12] MEDS ORDERED: PROMETHAZINE HCL 6.25 MG in SODIUM CHLORIDE 0.9% 50 ML IV PRN (23:17)
[2020-03-12] MEDS ORDERED: fentaNYL citrate 100 MCG/2 ML VIAL IV PRN (23:17)
[2020-03-12] MEDS ORDERED: ICU PROTOCOL FOR HYPERGLYCEMIA PRN (23:17)
[2020-03-12] MEDS: propofoL 1,000 MG/100 ML VIAL IV SCH (23:19)
--- NOTE | 2020-03-12 23:21 | Procedure Note ---
Procedure Note Date of Service March 12, 2020 Note ARTERIAL LINE PROCEDURE NOTE: Procedure: Arterial Line Placement Attending: Dr. Cornejo Provider: YOMAIRA Lao Indication: Monitoring on Pressors, frequent ABGs. Anesthesia: None Line placed emergently in the setting of hypotension requiring vasopressors for blood pressure support. A time-out was completed verifying correct patient, procedure, site, positioning, and implant(s) or special equipment if applicable. Allens test was performed to ensure adequate perfusion. Patients left wrist was prepped and draped in the usual sterile fashion. Ultrasound guidance was used to aid needle placement. A 20g Arrow arterial line was introduced into the left radial artery. Catheter was threaded, and the needle was removed with appropriate blood return. Good waveform was observed. The patient tolerated the procedure well. Conf irmation of placement with ultrasound. Blood Loss: Minimal Complications: None Procedural Ultrasound Guidance: Procedure Date: 03/12/2020 Indication: Arterial line insertion Attending: Dr. Cornejo Provider: YOMAIRA Lao Artery Identified: YES Line confirmed in Artery with ultrasound: Yes Complications: NONE Patient tolerated procedure: WELL Coding CPT Codes Tubes, Drains, and Vasc Access - Tubes, Drains, and Vasc Access: [id number] Place Catheter In Artery ([id number]) Tubes, Drains, and Vasc Access - Tubes, Drains, and Vasc Access: [id number] Ultrasound Guidance For Vascular ([id number]) [facility] [place] Codes (Charges) Tubes, Drains, and Vasc Access Procedure 1: Tubes, Drains, and Vasc Access: [id number] Place Catheter In Artery Procedure 2: Tubes, Drains, and Vasc Access: [id number] Ultrasound Guidance For Vascular
[2020-03-12] MEDS ORDERED: D5W AND LACTATED RINGERS 1,000 ML IV SCH (23:30)
[2020-03-12] MEDS ORDERED: PATIENT'S HEIGHT AND/OR WEIGHT NEEDED SCH (23:30)
[2020-03-12 23:34] LABS: iSTAT Arterial Blood Gas HCO3 23 meg/L (19-24); iSTAT Arterial Blood Gas pCO2 46 mmHg (35-46); iSTAT Arterial Blood Gas pO2 80 mmHg (80-95); iSTAT Carbon Dioxide 24 mmol/L (24-31); iSTAT FiO2 30 %; iSTAT Site Art Line
--- NOTE | 2020-03-12 23:36 | Emergency Department Note ---
History of Present Illness General Chief complaint: Overdose (Intentional) Stated complaint: OD Time Seen by Provider: 03/12/20 18:55 Mode of arrival: EMS History of Present Illness Provider complaint: Overdose 34-year-old female presents emergency department for overdose. Per EMS, the patient was found in her home scattered by empty pill bottles which they bring with them as well as suicide notes. Per EMS, police arrived at the scene and realized the patient was not responding but was breathing. EMS was called. Patient had one seizure prior to EMS arrival and then EMS arrived and she seized again. Patient was given Versed 2.5 mg and 1 L normal saline was started on the patient. Allergies Allergy/AdvReac Type Severity Reaction Status Date / Time Penicillins Allergy Intermediate HIVES Verified 12/19/19 13:53 Past Med/Surg History Medical History Alcohol withdrawal seizure Alcoholism Alcoholism Ascites Drug overdose Elevated lactic acid level Gram-positive cocci bacteremia Headache Hypokalemia Hypomagnesemia Hypomagnesemia Motrin overdose No significant active problems Prolonged Q-T interval on ECG Sepsis Severe acute pancreatitis Tobacco use Transaminitis UTI (urinary tract infection) Weakness Surgical History S/P appendectomy S/P ERCP Social History Smoking Status: Current every day smoker Tobacco Cessation Education Requested by Patient: No (Unable to answer) Hx Alcohol Use: Yes Alcohol type: hard liquor Hx Substance Use: No Preferred Language: [place]ankan Communication Ability: Unable Teletypewriter Operator Required: No Beliefs That Will Affect Care: None marital status: Single Current Living Situation: Other Current Living Situation Comment: Friend Other Information That Helps Us Care for You: No Feels Safe at Home: Yes Assistive Devices: None Review of Systems Unobtainable due to reduced consciousness Physical Exam Vital Signs Vital Signs - 24 hr 03/12/20 18:55 03/12/20 19:01 03/12/20 19:05 Temperature 34.1 C L Temperature Source Rectal Pulse Rate 110 H 109 H 107 H Pulse Rate from SpO2 Sensor 109 H 107 H Respiratory Rate 16 17 19 Blood Pressure 67/38 L 65/39 L Blood Pressure Mean 47 51 Blood Pressure Position Lying Pulse Oximetry 92 93 100 Oxygen Delivery Method Room Air Room Air Room Air Oxygen Flow Rate Fraction of Inspired Oxygen Sepsis Recent Fever Within 48 Hours No Sepsis New/Unexplained Change in Mental Status Yes Sepsis Action Taken by Nursing Physician Notified End-Tidal CO2 03/12/20 19:10 03/12/20 19:15 03/12/20 19:17 Temperature Temperature Source Pulse Rate 105 H 103 H 103 H Pulse Rate from SpO2 Sensor 105 H 103 H 103 H Respiratory Rate 19 17 16 Blood Pressure 66/40 L 61/39 L 71/42 L Blood Pressure Mean 51 50 51 Blood Pressure Position Pulse Oximetry 100 99 94 Oxygen Delivery Method Room Air Room Air Room Air Oxygen Flow Rate Fraction of Inspired Oxygen Sepsis Recent Fever Within 48 Hours Sepsis New/Unexplained Change in Mental Status Sepsis Action Taken by Nursing End-Tidal CO2 03/12/20 19:20 03/12/20 19:22 03/12/20 19:25 Temperature Temperature Source Pulse Rate 102 H 101 H 98 H Pulse Rate from SpO2 Sensor 102 H 101 H 97 H Respiratory Rate 15 16 17 Blood Pressure 69/41 L 70/41 L 59/33 L Blood Pressure Mean 59 53 43 Blood Pressure Position Pulse Oximetry 90 87 L 95 Oxygen Delivery Method Room Air Room Air Non-rebreather Oxygen Flow Rate 15 Fraction of Inspired Oxygen Sepsis Recent Fever Within 48 Hours Sepsis New/Unexplained Change in Mental Status Sepsis Action Taken by Nursing End-Tidal CO2 03/12/20 19:28 03/12/20 19:30 03/12/20 19:31 Temperature Temperature Source Pulse Rate 98 H 99 H 99 H Pulse Rate from SpO2 Sensor 98 H 100 H 99 H Respiratory Rate 18 17 17 Blood Pressure 60/34 L 58/37 L Blood Pressure Mean 52 44 Blood Pressure Position Pulse Oximetry 97 94 Oxygen Delivery Method Non-rebreather Non-rebreather Non-rebreather Oxygen Flow Rate 15 15 15 Fraction of Inspired Oxygen Sepsis Recent Fever Within 48 Hours Sepsis New/Unexplained Change in Mental Status Sepsis Action Taken by Nursing End-Tidal CO2 03/12/20 19:35 03/12/20 19:37 03/12/20 19:40 Temperature Temperature Source Pulse Rate 101 H 100 H 100 H Pulse Rate from SpO2 Sensor 100 H 100 H 100 H Respiratory Rate 17 19 17 Blood Pressure 60/37 L 60/39 L 67/40 L Blood Pressure Mean 45 46 51 Blood Pressure Position Pulse Oximetry 90 90 100 Oxygen Delivery Method Non-rebreather Non-rebreather Non-rebreather Oxygen Flow Rate 15 15 15 Fraction of Inspired Oxygen Sepsis Recent Fever Within 48 Hours Sepsis New/Unexplained Change in Mental Status Sepsis Action Taken by Nursing End-Tidal CO2 03/12/20 19:42 03/12/20 19:44 03/12/20 19:45 Temperature Temperature Source Pulse Rate 100 H 100 H 101 H Pulse Rate from SpO2 Sensor 100 H 101 H 101 H Respiratory Rate 17 17 16 Blood Pressure 64/37 L 65/39 L 67/39 L Blood Pressure Mean 46 46 51 Blood Pressure Position Pulse Oximetry 100 100 98 Oxygen Delivery Method Non-rebreather Mechanical Vent Mechanical Vent Oxygen Flow Rate 15 Fraction of Inspired Oxygen 100 70 Sepsis Recent Fever Within 48 Hours Sepsis New/Unexplained Change in Mental Status Sepsis Action Taken by Nursing End-Tidal CO2 36 03/12/20 19:48 03/12/20 19:50 03/12/20 19:52 Temperature Temperature Source Pulse Rate 101 H 101 H 101 H Pulse Rate from SpO2 Sensor Respiratory Rate 13 16 16 Blood Pressure 67/36 L 65/38 L 64/38 L Blood Pressure Mean 52 46 52 Blood Pressure Position Pulse Oximetry Oxygen Delivery Method Oxygen Flow Rate Fraction of Inspired Oxygen Sepsis Recent Fever Within 48 Hours Sepsis New/Unexplained Change in Mental Status Sepsis Action Taken by Nursing End-Tidal CO2 03/12/20 19:55 03/12/20 19:57 03/12/20 20:00 Temperature Temperature Source Pulse Rate 101 H 101 H 102 H Pulse Rate from SpO2 Sensor 100 H 102 H Respiratory Rate 16 16 Blood Pressure 67/40 L 68/38 L 69/38 L Blood Pressure Mean 46 53 53 Blood Pressure Position Pulse Oximetry 100 100 Oxygen Delivery Method Mechanical Vent Mechanical Vent Oxygen Flow Rate Fraction of Inspired Oxygen 100 50 Sepsis Recent Fever Within 48 Hours Sepsis New/Unexplained Change in Mental Status Sepsis Action Taken by Nursing End-Tidal CO2 03/12/20 20:01 03/12/20 20:03 03/12/20 20:05 Temperature Temperature Source Pulse Rate 102 H 102 H 103 H Pulse Rate from SpO2 Sensor 102 H 102 H 103 H Respiratory Rate Blood Pressure 66/38 L 69/39 L Blood Pressure Mean 52 53 Blood Pressure Position Pulse Oximetry 100 100 100 Oxygen Delivery Method Mechanical Vent Mechanical Vent Mechanical Vent Oxygen Flow Rate Fraction of Inspired Oxygen 100 100 100 Sepsis Recent Fever Within 48 Hours Sepsis New/Unexplained Change in Mental Status Sepsis Action Taken by Nursing End-Tidal CO2 03/12/20 20:07 03/12/20 20:10 03/12/20 20:12 Temperature Temperature Source Pulse Rate 103 H 103 H 104 H Pulse Rate from SpO2 Sensor 103 H 104 H 104 H Respiratory Rate Blood Pressure 69/38 L 66/38 L 66/38 L Blood Pressure Mean 52 52 53 Blood Pressure Position Pulse Oximetry 100 100 100 Oxygen Delivery Method Mechanical Vent Mechanical Vent Mechanical Vent Oxygen Flow Rate Fraction of Inspired Oxygen 100 100 100 Sepsis Recent Fever Within 48 Hours Sepsis New/Unexplained Change in Mental Status Sepsis Action Taken by Nursing End-Tidal CO2 03/12/20 20:15 03/12/20 20:17 03/12/20 20:20 Temperature Temperature Source Pulse Rate 104 H 105 H 104 H Pulse Rate from SpO2 Sensor 104 H 105 H 105 H Respiratory Rate Blood Pressure 65/38 L 65/37 L 66/37 L Blood Pressure Mean 52 53 53 Blood Pressure Position Pulse Oximetry 99 99 99 Oxygen Delivery Method Mechanical Vent Mechanical Vent Mechanical Vent Oxygen Flow Rate Fraction of Inspired Oxygen 100 100 100 Sepsis Recent Fever Within 48 Hours Sepsis New/Unexplained Change in Mental Status Sepsis Action Taken by Nursing End-Tidal CO2 03/12/20 20:22 03/12/20 20:25 03/12/20 20:27 Temperature Temperature Source Pulse Rate 105 H 105 H 110 H Pulse Rate from SpO2 Sensor 106 H 106 H 111 H Respiratory Rate Blood Pressure 66/34 L 66/36 L 88/51 L Blood Pressure Mean 47 53 68 Blood Pressure Position Pulse Oximetry 98 98 98 Oxygen Delivery Method Mechanical Vent Mechanical Vent Mechanical Vent Oxygen Flow Rate Fraction of Inspired Oxygen 100 100 100 Sepsis Recent Fever Within 48 Hours Sepsis New/Unexplained Change in Mental Status Sepsis Action Taken by Nursing End-Tidal CO2 03/12/20 20:30 03/12/20 20:33 03/12/20 20:35 Temperature Temperature Source Pulse Rate 112 H 113 H 113 H Pulse Rate from SpO2 Sensor 112 H 113 H 113 H Respiratory Rate Blood Pressure 91/53 L 87/54 L 90/53 L Blood Pressure Mean 68 69 67 Blood Pressure Position Pulse Oximetry 97 93 95 Oxygen Delivery Method Mechanical Vent Mechanical Vent Mechanical Vent Oxygen Flow Rate Fraction of Inspired Oxygen 100 100 100 Sepsis Recent Fever Within 48 Hours Sepsis New/Unexplained Change in Mental Status Sepsis Action Taken by Nursing End-Tidal CO2 03/12/20 20:37 03/12/20 20:40 03/12/20 20:42 Temperature Temperature Source Pulse Rate 114 H 115 H 115 H Pulse Rate from SpO2 Sensor 114 H 115 H 115 H Respiratory Rate Blood Pressure 90/53 L 91/51 L 93/53 L Blood Pressure Mean 63 69 70 Blood Pressure Position Pulse Oximetry 95 94 94 Oxygen Delivery Method Mechanical Vent Mechanical Vent Mechanical Vent Oxygen Flow Rate Fraction of Inspired Oxygen 100 100 100 Sepsis Recent Fever Within 48 Hours Sepsis New/Unexplained Change in Mental Status Sepsis Action Taken by Nursing End-Tidal CO2 40 40 03/12/20 20:45 03/12/20 21:06 03/12/20 21:07 Temperature Temperature Source Pulse Rate 116 H 118 H 118 H Pulse Rate from SpO2 Sensor 117 H 118 H 118 H Respiratory Rate Blood Pressure 92/53 L 91/51 L 92/49 L Blood Pressure Mean 66 66 63 Blood Pressure Position Pulse Oximetry 100 100 100 Oxygen Delivery Method Mechanical Vent Mechanical Vent Mechanical Vent Oxygen Flow Rate Fraction of Inspired Oxygen 100 100 100 Sepsis Recent Fever Within 48 Hours Sepsis New/Unexplained Change in Mental Status Sepsis Action Taken by Nursing End-Tidal CO2 41 41 41 03/12/20 21:10 03/12/20 21:12 03/12/20 21:15 Temperature Temperature Source Pulse Rate 118 H 120 H 120 H Pulse Rate from SpO2 Sensor 119 H 120 H 120 H Respiratory Rate Blood Pressure 92/51 L 90/51 L 87/53 L Blood Pressure Mean 65 64 63 Blood Pressure Position Pulse Oximetry 99 99 99 Oxygen Delivery Method Mechanical Vent Mechanical Vent Mechanical Vent Oxygen Flow Rate Fraction of Inspired Oxygen 100 100 Sepsis Recent Fever Within 48 Hours Sepsis New/Unexplained Change in Mental Status Sepsis Action Taken by Nursing End-Tidal CO2 40 44 44 03/12/20 21:22 Temperature Temperature Source Pulse Rate 121 H Pulse Rate from SpO2 Sensor 121 H Respiratory Rate Blood Pressure 87/50 L Blood Pressure Mean 61 Blood Pressure Position Pulse Oximetry 99 Oxygen Delivery Method Mechanical Vent Oxygen Flow Rate 100 Fraction of Inspired Oxygen Sepsis Recent Fever Within 48 Hours Sepsis New/Unexplained Change in Mental Status Sepsis Action Taken by Nursing End-Tidal CO2 42 Physical Exam HEAD: atruamatic EYES: Pulse 4 mm and reactive. CV: Tachycardic rate, regular rhythm, normal heart sounds and intact distal pulses. There is no peripheral edema. Palpable radial pulses bue. PULM/CHEST: Rhonchi bilaterally. ABD: Abdomen soft. MUSC/SKEL: Pelvis stable. NEURO: GCS eye subscore is 2. GCS verbal subscore is 2. GCS motor subscore is 4. SKIN: What appears to be self-inflicted wounds of her bilateral upper extremities. Wounds are not deep and appear to be abrasions. They do run up along her veins. Procedures Central Line Placement Right IJ: Patient Placed on Monitor/Pulse Ox: Yes MD Prep: mask, gown and gloves Central Line Prep: Chlorhexidine scrub Local Anesthetic: lidocaine 1% Amount of anesthesia used (mL): 3 Ultrasound Used for Placement: Yes Central Line Lumen Inserted: triple Post Procedure: sutured in place, good blood return, all ports aspirated, flushed, capped and sterile dressing applied Post Procedure X-Ray: tip of catheter in good position and no pneumothorax seen Patient Tolerated Procedure: well Complications: none FAST Exam FAST Exam 1: Fluid in Morison's pouch: No Fluid in Splenorenal Junction: No Fluid around bladder, Transverse view: No Fluid around bladder, Sagittal view: No Fluid in Pericardial Sac: No Gross Wall Motion Abnormality: No Study normal for this patient: Yes Images saved for further review: Yes Additional Comments: [place] protocol initiated. No pneumothorax arnaldo aterally. No AAA. IVC is plethoric. Intubation sedative: Etomidate Mg Given: 20 paralytic: Rocuronium Mg Given: 70 Laryngoscope: other (Glidescope) ET Tube Size: 7 ET Tube Uncuffed: Yes Tube Secured Depth (cm): 23 Tube Secured Location: teeth Tube Placement Confirmation: visualized tube passing through cords, equal breath sounds bilaterally, no breath sounds over epigastrium and confirmation by capnometry Patient Tolerated Procedure: well Intubation Complications: none Course Course 1855: The patient was evaluated in room A1. A complete history and physical exam was performed. Administered Medications Norepinephrine Bitartrate (Levophed/D5w) 8 mg in 508 mls @ 12.611 mls/hr IV .Q24H [facility]; Protocol Stop: 04/11/20 20:29 Last Titration: 03/12/20 22:08 Dose: 0.09 mcg/kg/min, 22.7 mls/hr Documented by: [id number] Titration: 03/12/20 21:35 Dose: 0.07 mcg/kg/min, 17.7 mls/hr Documented by: [id number] Admin: 03/12/20 20:26 Dose: 0.05 mcg/kg/min, 12.6 mls/hr Documented by: [id number] Cosigned by: [id number] Propofol (Diprivan) 1,000 mg in 100 mls @ 15.888 mls/hr IV .Q6H18M [facility]; Protocol Stop: 03/15/20 22:59 Last Titration: 03/13/20 01:00 Dose: 40 mcg/kg/min, 15.9 mls/hr Documented by: [id number] Titration: 03/13/20 00:00 Dose: 30 mcg/kg/min, 11.9 mls/hr Documented by: [id number] Admin: 03/12/20 23:19 Dose: 20 mcg/kg/min, 7.9 mls/hr Documented by: [id number] Cosigned by: [id number] Daptomycin 250 mg/ Syringe 5 mls @ 2.5 mls/min IV Q24H [facility]; Protocol Stop: 03/22/20 23:44 Last Admin: 03/13/20 00:12 Dose: 2.5 mls/min Documented by: [id number] Sodium Bicarbonate 150 meq/ (Dextrose) 1,150 mls @ 200 mls/hr IV .Q5H45M [facility] Stop: 04/12/20 00:14 Last Admin: 03/13/20 00:24 Dose: 200 mls/hr Documented by: [id number] Potassium Chloride (K Collins / Wtr) 20 meq in 100 mls @ 50 mls/hr IV ONE ONE Stop: 03/13/20 02:42 Last Admin: 03/13/20 01:11 Dose: 50 mls/hr Documented by: [id number] Ipratropium [place] (Ipratropium [place] Hfa Inhaler) 4 puffs INH Q6R [facility] Stop: 04/11/20 23:16 Last Admin: 03/13/20 00:34 Dose: Not Given Documented by: [id number] Admin: 03/13/20 00:33 Dose: Not Given Documented by: [id number] Levalbuterol HCl (Levalbuterol Tartrate 15 Gm Hfa.Aer.Ad) 4 puffs INH Q6R [facility] Stop: 04/11/20 23:16 Last Admin: 03/13/20 00:34 Dose: Not Given Documented by: [id number] Admin: 03/13/20 00:34 Dose: Not Given Documented by: [id number] Discontinued Medications Dextrose (Dextrose 50% 50 Ml Syringe) 50 ml IV NOW ONE Stop: 03/12/20 19:22 Last Admin: 03/12/20 19:25 Dose: 50 ml Documented by: [id number] Sodium Chloride (Nss 1000ml) 1,000 mls @ 999 mls/hr IV .Q1H1M [facility] Stop: 03/12/20 19:56 Last Infusion: 03/12/20 20:08 Dose: 0 mls/hr Documented by: [id number] Admin: 03/12/20 19:07 Dose: 999 mls/hr Documented by: [id number] Sodium Chloride (Nss 1000ml) 1,000 mls @ 999 mls/hr IV .Q1H1M [facility] Stop: 03/12/20 20:55 Last Infusion: 03/12/20 21:09 Dose: 0 mls/hr Documented by: [id number] Admin: 03/12/20 20:08 Dose: 999 mls/hr Documented by: [id number] Sodium Chloride (Nss 1000ml) 1,000 mls @ 999 mls/hr IV .Q1H1M [facility] Stop: 03/12/20 20:00 Last Infusion: 03/12/20 20:22 Dose: 0 mls/hr Documented by: [id number] Admin: 03/12/20 19:21 Dose: 999 mls/hr Documented by: [id number] Infusion: 03/12/20 19:21 Dose: 999 mls/hr Documented by: [id number] Admin: 03/12/20 19:07 Dose: 999 mls/hr Documented by: [id number] Magnesium Sulfate/Dextrose (Magnesium Sulfate / D5w) 1 gm in 100 mls @ 600 mls/hr IV Q10M [facility] Stop: 03/12/20 19:35 Last Infusion: 03/12/20 19:58 Dose: 0 mls/hr Documented by: [id number] Admin: 03/12/20 19:47 Dose: 600 mls/hr Documented by: [id number] Infusion: 03/12/20 19:32 Dose: 0 mls/hr Documented by: [id number] Admin: 03/12/20 19:21 Dose: 600 mls/hr Documented by: [id number] Sodium Bicarbonate 150 meq/ (Dextrose) 1,150 mls @ 250 mls/hr IV .Q4H36M [facility] Stop: 03/13/20 00:20 Last Infusion: 03/13/20 00:29 Dose: 0 mls/hr Documented by: [id number] Admin: 03/12/20 19:36 Dose: 250 mls/hr Documented by: [id number] Thiamine HCl 100 mg/ Syringe 10 mls @ 2 mls/min IV NOW STA Stop: 03/12/20 21:03 Last Admin: 03/12/20 21:35 Dose: 2 mls/min Documented by: [id number] Cefepime HCl (Maxipime) 2,000 mg in 20 mls @ 5 mls/min IV NOW STA; Protocol Stop: 03/12/20 20:57 Last Admin: 03/12/20 21:46 Dose: 5 mls/min Documented by: [id number] Vancomycin HCl 1,250 mg/ (Sodium Chloride) 525 mls @ 200 mls/hr IV NOW ONE Stop: 03/12/20 23:31 Last Admin: 03/12/20 21:46 Dose: Not Given Documented by: [id number] Potassium Chloride (K Collins / Wtr) 10 meq in 100 mls @ 100 mls/hr IV Q1H [facility] Stop: 03/13/20 01:16 Last Admin: 03/13/20 01:18 Dose: Not Given Documented by: [id number] Admin: 03/13/20 01:18 Dose: Not Given Documented by: [id number] Lorazepam (Ativan) 2 mg in 4 mls @ 4 mls/min IV NOW STA Stop: 03/13/20 00:33 Last Admin: 03/13/20 00:49 Dose: 4 mls/min Documented by: [id number] Calcium Chloride 1,000 mg/ (Sodium Chloride) 60 mls @ 240 mls/hr IV NOW STA Stop: 03/13/20 00:57 Last Infusion: 03/13/20 01:25 Dose: 0 mls/hr Documented by: [id number] Admin: 03/13/20 01:10 Dose: 240 mls/hr Documented by: [id number] Magnesium Sulfate/Dextrose (Magnesium Sulfate 1gm / D5w Bag) Confirm Administered Dose 2 gm IV .STK-MED ONE Stop: 03/12/20 19:14 Last Admin: 03/12/20 19:20 Dose: Not Given Documented by: [id number] Miscellaneous (Rapid Sequence Induction Bag) Confirm Administered Dose 1 ea .ROUTE .STK-MED ONE Stop: 03/12/20 19:31 Last Admin: 03/12/20 20:09 Dose: 1 ea Documented by: [id number] Sodium Bicarbonate (Sodium Bicarb 8.4% Inj 50 Meq/50 Ml Syr) Confirm Administered Dose 100 meq IV .STK-MED ONE Stop: 03/12/20 19:14 Last Admin: 03/12/20 19:20 Dose: Not Given Documented by: [id number] Sodium Bicarbonate (Sodium Bicarb 8.4% Inj 50 Meq/50 Ml Syr) 50 meq IV NOW STA Stop: 03/12/20 19:15 Last Admin: 03/12/20 19:20 Dose: 50 meq Documented by: [id number] Sodium Bicarbonate (Sodium Bicarb 8.4% Inj 50 Meq/50 Ml Syr) 50 meq IV NOW STA Stop: 03/12/20 19:17 Last Admin: 03/12/20 19:20 Dose: 50 meq Documented by: [id number] Critical Care Time Critical Care Time: Yes Total Critical Care Time: 119 I have personally spent greater than 119 minutes of critical care time in the direct management of this patient. This includes bedside care, interpretation of diagnostic studies, and testing, discussion with consultants, patient, and family members, and other required patient management activities. This 119 minutes is in excess of all separately billable procedures. Medical Decision Making Laboratory Data Result diagrams: 03/12/20 18:55 03/12/20 23:43 Lab Results 03/12/20 03/12/20 03/12/20 Range/Units 18:55 18:55 18:55 WBC 8.52 (4.8-10.8) K/uL RBC 3.52 L (4.2-5.4) M/uL Hgb 11.4 L (12.0-16.0) g/dL Hct 32.7 L (37-47) % MCV 92.9 (80-100) fL MCH 32.4 (25-34) pg MCHC 34.9 (32-36) g/dL RDW Std Deviation 48.3 H (36.4-46.3) fL RDW Coeff of Meme 14.3 (11.5-14.5) % Plt Count 197 (130-400) K/uL MPV 9.0 (7.4-10.4) fL Immature Gran % (Auto) 0.1 % Neut % (Auto) 60.3 % Lymph % (Auto) 29.8 % [place] % (Auto) 9.7 % Eos % (Auto) 0.1 % Baso % (Auto) 0.0 % Neut # (Auto) 5.13 (1.4-6.5) K/uL Lymph # (Auto) 2.54 (1.2-3.4) K/uL [place] # (Auto) 0.83 H (0.11-0.59) K/uL Eos # (Auto) 0.01 (0-0.5) K/uL Baso # (Auto) 0.00 (0-0.2) K/uL Immature Gran # (Auto) 0.01 (0.00-0.02) K/uL PT 11.9 (9.0-12.0) Seconds INR 1.1 (0.9-1.1) APTT 27.9 (21.0-31.0) Seconds PTT Ratio 1.0 VBG pH (7.36-7.41) VBG pCO2 (38-50) mmHg VBG pO2 mmHg VBG HCO3 mmol/L VBG O2 Saturation % VBG Base Excess mEq/L Barometric Pressure mm/Hg Sodium 144 (136-145) mmol/L Potassium 3.3 L (3.5-5.1) mmol/L Chloride 111 H (98-107) mmol/L Carbon Dioxide 17 L (21-32) mmol/L Anion Gap 16.0 H (3-11) BUN 10 (7-18) mg/dl Creatinine 1.01 (0.6-1.2) mg/dl Est Cr Clr Drug Dosing Not Reportable Est GFR ( Amer) 85.3 Est GFR (Non-Af Amer) 73.6 BUN/Creatinine Ratio 9.8 L (10-20) Glucose 74 (70-99) mg/dl POC Glucose (70-99) mg/dl Lactate (0.4-2.0) mmol/L Calcium 7.7 L (8.5-10.1) mg/dl Magnesium 2.0 (1.8-2.4) mg/dl Iron 215 H (35-150) mcg/dl Total Bilirubin 0.6 (0.2-1) mg/dl AST 133 H (15-37) U/L ALT 62 (12-78) U/L Alkaline Phosphatase 232 H (45-117) U/L Total Creatine Kinase 97 (26-192) U/L Total Protein 6.5 (6.4-8.2) gm/dl Albumin 3.1 L (3.4-5.0) gm/dl Globulin 3.4 (2.5-4.0) gm/dl Albumin/Globulin Ratio 0.9 (0.9-2) Lipase (73-393) U/L Procalcitonin (0-0.5) ng/ml TSH 9.030 H (0.300-4.500) uIu/ml Free T4 0.67 L (0.8-1.6) ng/dl Urine Color Urine Appearance (Clear) Urine pH (4.5-7.5) Ur Specific [place] (1.000-1.030) Urine Protein (Negative) Urine Glucose (UA) (Negative) Urine Ketones (Negative) Urine Blood (Negative) Urine Nitrite (Negative) Urine Bilirubin (Negative) Urine Urobilinogen (Negative) Ur Leukocyte Esterase (Negative) Urine WBC (Auto) (0-5) /hpf Urine RBC (Auto) (0-4) /hpf U Hyaline Cast (Auto) (0-5) /lpf U Epithel Cells (Auto) (0-5) /lpf Urine Bacteria (Auto) (Negative) Salicylates (2.8-20) mg/dl Urine Opiates Screen (Neg) Ur Methadone, Qual (Neg) Acetaminophen (10-30) ug/ml Urine Barbiturates (Neg) Ur Phencyclidine (PCP) (Neg) U Amphetamin/Meth Scrn (Neg) MDMA (Ecstasy) Screen (Neg) U Benzodiazepines Scrn (Neg) Ur Cocaine Metabolite (Neg) U Marijuana (THC) Screen (Neg) Ethyl Alcohol mg/dL (0-3) mg/dl COVID-19 Eval Order SARS-CoV-2 (PCR) (Negative) Influenza Type A (PCR) (Neg) Influenza Type B (PCR) (Neg) RSV (RT-PCR) (Neg) 03/12/20 03/12/20 03/12/20 Range/Units 18:55 18:55 18:55 WBC (4.8-10.8) K/uL RBC (4.2-5.4) M/uL Hgb (12.0-16.0) g/dL Hct (37-47) % MCV (80-100) fL MCH (25-34) pg MCHC (32-36) g/dL RDW Std Deviation (36.4-46.3) fL RDW Coeff of Meme (11.5-14.5) % Plt Count (130-400) K/uL MPV (7.4-10.4) fL Immature Gran % (Auto) % Neut % (Auto) % Lymph % (Auto) % [place] % (Auto) % Eos % (Auto) % Baso % (Auto) % Neut # (Auto) (1.4-6.5) K/uL Lymph # (Auto) (1.2-3.4) K/uL [place] # (Auto) (0.11-0.59) K/uL Eos # (Auto) (0-0.5) K/uL Baso # (Auto) (0-0.2) K/uL Immature Gran # (Auto) (0.00-0.02) K/uL PT (9.0-12.0) Seconds INR (0.9-1.1) APTT (21.0-31.0) Seconds PTT Ratio VBG pH (7.36-7.41) VBG pCO2 (38-50) mmHg VBG pO2 mmHg VBG HCO3 mmol/L VBG O2 Saturation % VBG Base Excess mEq/L Barometric Pressure mm/Hg Sodium (136-145) mmol/L Potassium (3.5-5.1) mmol/L Chloride (98-107) mmol/L Carbon Dioxide (21-32) mmol/L Anion Gap (3-11) BUN (7-18) mg/dl Creatinine (0.6-1.2) mg/dl Est Cr Clr Drug Dosing Est GFR ( Amer) Est GFR (Non-Af Amer) BUN/Creatinine Ratio (10-20) Glucose (70-99) mg/dl POC Glucose (70-99) mg/dl Lactate 8.0 H* (0.4-2.0) mmol/L Calcium (8.5-10.1) mg/dl Magnesium (1.8-2.4) mg/dl Iron (35-150) mcg/dl Total Bilirubin (0.2-1) mg/dl AST (15-37) U/L ALT (12-78) U/L Alkaline Phosphatase (45-117) U/L Total Creatine Kinase Cancelled (26-192) U/L Total Protein (6.4-8.2) gm/dl Albumin (3.4-5.0) gm/dl Globulin (2.5-4.0) gm/dl Albumin/Globulin Ratio (0.9-2) Lipase (73-393) U/L Procalcitonin (0-0.5) ng/ml TSH (0.300-4.500) uIu/ml Free T4 (0.8-1.6) ng/dl Urine Color Urine Appearance (Clear) Urine pH (4.5-7.5) Ur Specific [place] (1.000-1.030) Urine Protein (Negative) Urine Glucose (UA) (Negative) Urine Ketones (Negative) Urine Blood (Negative) Urine Nitrite (Negative) Urine Bilirubin (Negative) Urine Urobilinogen (Negative) Ur Leukocyte Esterase (Negative) Urine WBC (Auto) (0-5) /hpf Urine RBC (Auto) (0-4) /hpf U Hyaline Cast (Auto) (0-5) /lpf U Epithel Cells (Auto) (0-5) /lpf Urine Bacteria (Auto) (Negative) Salicylates < 1.7 L (2.8-20) mg/dl Urine Opiates Screen (Neg) Ur Methadone, Qual (Neg) Acetaminophen < 2 L (10-30) ug/ml Urine Barbiturates (Neg) Ur Phencyclidine (PCP) (Neg) U Amphetamin/Meth Scrn (Neg) MDMA (Ecstasy) Screen (Neg) U Benzodiazepines Scrn (Neg) Ur Cocaine Metabolite (Neg) U Marijuana (THC) Screen (Neg) Ethyl Alcohol mg/dL (0-3) mg/dl COVID-19 Eval Order SARS-CoV-2 (PCR) (Negative) Influenza Type A (PCR) (Neg) Influenza Type B (PCR) (Neg) RSV (RT-PCR) (Neg) 03/12/20 03/12/20 03/12/20 Range/Units 18:55 19:11 19:11 WBC (4.8-10.8) K/uL RBC (4.2-5.4) M/uL Hgb (12.0-16.0) g/dL Hct (37-47) % MCV (80-100) fL MCH (25-34) pg MCHC (32-36) g/dL RDW Std Deviation (36.4-46.3) fL RDW Coeff of Meme (11.5-14.5) % Plt Count (130-400) K/uL MPV (7.4-10.4) fL Immature Gran % (Auto) % Neut % (Auto) % Lymph % (Auto) % [place] % (Auto) % Eos % (Auto) % Baso % (Auto) % Neut # (Auto) (1.4-6.5) K/uL Lymph # (Auto) (1.2-3.4) K/uL [place] # (Auto) (0.11-0.59) K/uL Eos # (Auto) (0-0.5) K/uL Baso # (Auto) (0-0.2) K/uL Immature Gran # (Auto) (0.00-0.02) K/uL PT (9.0-12.0) Seconds INR (0.9-1.1) APTT (21.0-31.0) Seconds PTT Ratio VBG pH 7.13 L (7.36-7.41) VBG pCO2 53 H (38-50) mmHg VBG pO2 43 mmHg VBG HCO3 17 mmol/L VBG O2 Saturation 63.4 % VBG Base Excess -11.8 mEq/L Barometric Pressure 732.6 mm/Hg Sodium (136-145) mmol/L Potassium (3.5-5.1) mmol/L Chloride (98-107) mmol/L Carbon Dioxide (21-32) mmol/L Anion Gap (3-11) BUN (7-18) mg/dl Creatinine (0.6-1.2) mg/dl Est Cr Clr Drug Dosing Est GFR ( Amer) Est GFR (Non-Af Amer) BUN/Creatinine Ratio (10-20) Glucose (70-99) mg/dl POC Glucose (70-99) mg/dl Lactate (0.4-2.0) mmol/L Calcium (8.5-10.1) mg/dl Magnesium (1.8-2.4) mg/dl Iron (35-150) mcg/dl Total Bilirubin (0.2-1) mg/dl AST (15-37) U/L ALT (12-78) U/L Alkaline Phosphatase (45-117) U/L Total Creatine Kinase (26-192) U/L Total Protein (6.4-8.2) gm/dl Albumin (3.4-5.0) gm/dl Globulin (2.5-4.0) gm/dl Albumin/Globulin Ratio (0.9-2) Lipase (73-393) U/L Procalcitonin (0-0.5) ng/ml TSH (0.300-4.500) uIu/ml Free T4 (0.8-1.6) ng/dl Urine Color Yellow Urine Appearance Clear (Clear) Urine pH 5.0 (4.5-7.5) Ur Specific [place] 1.010 (1.000-1.030) Urine Protein Negative (Negative) Urine Glucose (UA) Negative (Negative) Urine Ketones Negative (Negative) Urine Blood 1+ H (Negative) Urine Nitrite Negative (Negative) Urine Bilirubin Negative (Negative) Urine Urobilinogen Negative (Negative) Ur Leukocyte Esterase 2+ H (Negative) Urine WBC (Auto) 5-10 H (0-5) /hpf Urine RBC (Auto) 0-4 (0-4) /hpf U Hyaline Cast (Auto) 1-5 (0-5) /lpf U Epithel Cells (Auto) >30 H (0-5) /lpf Urine Bacteria (Auto) 1+ H (Negative) Salicylates (2.8-20) mg/dl Urine Opiates Screen Neg (Neg) Ur Methadone, Qual Neg (Neg) Acetaminophen (10-30) ug/ml Urine Barbiturates Neg (Neg) Ur Phencyclidine (PCP) Neg (Neg) U Amphetamin/Meth Scrn Neg (Neg) MDMA (Ecstasy) Screen Pos H (Neg) U Benzodiazepines Scrn Neg (Neg) Ur Cocaine Metabolite Neg (Neg) U Marijuana (THC) Screen Neg (Neg) Ethyl Alcohol mg/dL (0-3) mg/dl COVID-19 Eval Order SARS-CoV-2 (PCR) (Negative) Influenza Type A (PCR) (Neg) Influenza Type B (PCR) (Neg) RSV (RT-PCR) (Neg) 03/12/20 03/12/20 03/12/20 Range/Units 19:20 19:40 19:40 WBC (4.8-10.8) K/uL RBC (4.2-5.4) M/uL Hgb (12.0-16.0) g/dL Hct (37-47) % MCV (80-100) fL MCH (25-34) pg MCHC (32-36) g/dL RDW Std Deviation (36.4-46.3) fL RDW Coeff of Meme (11.5-14.5) % Plt Count (130-400) K/uL MPV (7.4-10.4) fL Immature Gran % (Auto) % Neut % (Auto) % Lymph % (Auto) % [place] % (Auto) % Eos % (Auto) % Baso % (Auto) % Neut # (Auto) (1.4-6.5) K/uL Lymph # (Auto) (1.2-3.4) K/uL [place] # (Auto) (0.11-0.59) K/uL Eos # (Auto) (0-0.5) K/uL Baso # (Auto) (0-0.2) K/uL Immature Gran # (Auto) (0.00-0.02) K/uL PT (9.0-12.0) Seconds INR (0.9-1.1) APTT (21.0-31.0) Seconds PTT Ratio VBG pH (7.36-7.41) VBG pCO2 (38-50) mmHg VBG pO2 mmHg VBG HCO3 mmol/L VBG O2 Saturation % VBG Base Excess mEq/L Barometric Pressure mm/Hg Sodium (136-145) mmol/L Potassium (3.5-5.1) mmol/L Chloride (98-107) mmol/L Carbon Dioxide (21-32) mmol/L Anion Gap (3-11) BUN (7-18) mg/dl Creatinine (0.6-1.2) mg/dl Est Cr Clr Drug Dosing Est GFR ( Amer) Est GFR (Non-Af Amer) BUN/Creatinine Ratio (10-20) Glucose (70-99) mg/dl POC Glucose 71 (70-99) mg/dl Lactate (0.4-2.0) mmol/L Calcium (8.5-10.1) mg/dl Magnesium (1.8-2.4) mg/dl Iron (35-150) mcg/dl Total Bilirubin (0.2-1) mg/dl AST (15-37) U/L ALT (12-78) U/L Alkaline Phosphatase (45-117) U/L Total Creatine Kinase (26-192) U/L Total Protein (6.4-8.2) gm/dl Albumin (3.4-5.0) gm/dl Globulin (2.5-4.0) gm/dl Albumin/Globulin Ratio (0.9-2) Lipase (73-393) U/L Procalcitonin 0.06 (0-0.5) ng/ml TSH (0.300-4.500) uIu/ml Free T4 (0.8-1.6) ng/dl Urine Color Urine Appearance (Clear) Urine pH (4.5-7.5) Ur Specific [place] (1.000-1.030) Urine Protein (Negative) Urine Glucose (UA) (Negative) Urine Ketones (Negative) Urine Blood (Negative) Urine Nitrite (Negative) Urine Bilirubin (Negative) Urine Urobilinogen (Negative) Ur Leukocyte Esterase (Negative) Urine WBC (Auto) (0-5) /hpf Urine RBC (Auto) (0-4) /hpf U Hyaline Cast (Auto) (0-5) /lpf U Epithel Cells (Auto) (0-5) /lpf Urine Bacteria (Auto) (Negative) Salicylates (2.8-20) mg/dl Urine Opiates Screen (Neg) Ur Methadone, Qual (Neg) Acetaminophen (10-30) ug/ml Urine Barbiturates (Neg) Ur Phencyclidine (PCP) (Neg) U Amphetamin/Meth Scrn (Neg) MDMA (Ecstasy) Screen (Neg) U Benzodiazepines Scrn (Neg) Ur Cocaine Metabolite (Neg) U Marijuana (THC) Screen (Neg) Ethyl Alcohol mg/dL 180.7 H (0-3) mg/dl COVID-19 Eval Order SARS-CoV-2 (PCR) (Negative) Influenza Type A (PCR) (Neg) Influenza Type B (PCR) (Neg) RSV (RT-PCR) (Neg) 0103/12/20 03/12/20 Range/Units 19:40 20:42 20:47 WBC (4.8-10.8) K/uL RBC (4.2-5.4) M/uL Hgb (12.0-16.0) g/dL Hct (37-47) % MCV (80-100) fL MCH (25-34) pg MCHC (32-36) g/dL RDW Std Deviation (36.4-46.3) fL RDW Coeff of Meme (11.5-14.5) % Plt Count (130-400) K/uL MPV (7.4-10.4) fL Immature Gran % (Auto) % Neut % (Auto) % Lymph % (Auto) % [place] % (Auto) % Eos % (Auto) % Baso % (Auto) % Neut # (Auto) (1.4-6.5) K/uL Lymph # (Auto) (1.2-3.4) K/uL [place] # (Auto) (0.11-0.59) K/uL Eos # (Auto) (0-0.5) K/uL Baso # (Auto) (0-0.2) K/uL Immature Gran # (Auto) (0.00-0.02) K/uL PT (9.0-12.0) Seconds INR (0.9-1.1) APTT (21.0-31.0) Seconds PTT Ratio VBG pH 7.25 L (7.36-7.41) VBG pCO2 50 (38-50) mmHg VBG pO2 71 mmHg VBG HCO3 22 mmol/L VBG O2 Saturation 89.3 % VBG Base Excess -5.5 mEq/L Barometric Pressure 733.1 mm/Hg Sodium (136-145) mmol/L Potassium (3.5-5.1) mmol/L Chloride (98-107) mmol/L Carbon Dioxide (21-32) mmol/L Anion Gap (3-11) BUN (7-18) mg/dl Creatinine (0.6-1.2) mg/dl Est Cr Clr Drug Dosing Est GFR ( Amer) Est GFR (Non-Af Amer) BUN/Creatinine Ratio (10-20) Glucose (70-99) mg/dl POC Glucose (70-99) mg/dl Lactate 2.8 H* (0.4-2.0) mmol/L Calcium (8.5-10.1) mg/dl Magnesium (1.8-2.4) mg/dl Iron (35-150) mcg/dl Total Bilirubin (0.2-1) mg/dl AST (15-37) U/L ALT (12-78) U/L Alkaline Phosphatase (45-117) U/L Total Creatine Kinase (26-192) U/L Total Protein (6.4-8.2) gm/dl Albumin (3.4-5.0) gm/dl Globulin (2.5-4.0) gm/dl Albumin/Globulin Ratio (0.9-2) Lipase 169 (73-393) U/L Procalcitonin (0-0.5) ng/ml TSH (0.300-4.500) uIu/ml Free T4 (0.8-1.6) ng/dl Urine Color Urine Appearance (Clear) Urine pH (4.5-7.5) Ur Specific [place] (1.000-1.030) Urine Protein (Negative) Urine Glucose (UA) (Negative) Urine Ketones (Negative) Urine Blood (Negative) Urine Nitrite (Negative) Urine Bilirubin (Negative) Urine Urobilinogen (Negative) Ur Leukocyte Esterase (Negative) Urine WBC (Auto) (0-5) /hpf Urine RBC (Auto) (0-4) /hpf U Hyaline Cast (Auto) (0-5) /lpf U Epithel Cells (Auto) (0-5) /lpf Urine Bacteria (Auto) (Negative) Salicylates (2.8-20) mg/dl Urine Opiates Screen (Neg) Ur Methadone, Qual (Neg) Acetaminophen (10-30) ug/ml Urine Barbiturates (Neg) Ur Phencyclidine (PCP) (Neg) U Amphetamin/Meth Scrn (Neg) MDMA (Ecstasy) Screen (Neg) U Benzodiazepines Scrn (Neg) Ur Cocaine Metabolite (Neg) U Marijuana (THC) Screen (Neg) Ethyl Alcohol mg/dL (0-3) mg/dl COVID-19 Eval Order SARS-CoV-2 (PCR) (Negative) Influenza Type A (PCR) (Neg) Influenza Type B (PCR) (Neg) RSV (RT-PCR) (Neg) 01/03/21 01/03/21 Range/Units 21:17 21:17 WBC (4.8-10.8) K/uL RBC (4.2-5.4) M/uL Hgb (12.0-16.0) g/dL Hct (37-47) % MCV (80-100) fL MCH (25-34) pg MCHC (32-36) g/dL RDW Std Deviation (36.4-46.3) fL RDW Coeff of Meme (11.5-14.5) % Plt Count (130-400) K/uL MPV (7.4-10.4) fL Immature Gran % (Auto) % Neut % (Auto) % Lymph % (Auto) % [place] % (Auto) % Eos % (Auto) % Baso % (Auto) % Neut # (Auto) (1.4-6.5) K/uL Lymph # (Auto) (1.2-3.4) K/uL [place] # (Auto) (0.11-0.59) K/uL Eos # (Auto) (0-0.5) K/uL Baso # (Auto) (0-0.2) K/uL Immature Gran # (Auto) (0.00-0.02) K/uL PT (9.0-12.0) Seconds INR (0.9-1.1) APTT (21.0-31.0) Seconds PTT Ratio VBG pH (7.36-7.41) VBG pCO2 (38-50) mmHg VBG pO2 mmHg VBG HCO3 mmol/L VBG O2 Saturation % VBG Base Excess mEq/L Barometric Pressure mm/Hg Sodium (136-145) mmol/L Potassium (3.5-5.1) mmol/L Chloride (98-107) mmol/L Carbon Dioxide (21-32) mmol/L Anion Gap (3-11) BUN (7-18) mg/dl Creatinine (0.6-1.2) mg/dl Est Cr Clr Drug Dosing Est GFR ( Amer) Est GFR (Non-Af Amer) BUN/Creatinine Ratio (10-20) Glucose (70-99) mg/dl POC Glucose (70-99) mg/dl Lactate (0.4-2.0) mmol/L Calcium (8.5-10.1) mg/dl Magnesium (1.8-2.4) mg/dl Iron (35-150) mcg/dl Total Bilirubin (0.2-1) mg/dl AST (15-37) U/L ALT (12-78) U/L Alkaline Phosphatase (45-117) U/L Total Creatine Kinase (26-192) U/L Total Protein (6.4-8.2) gm/dl Albumin (3.4-5.0) gm/dl Globulin (2.5-4.0) gm/dl Albumin/Globulin Ratio (0.9-2) Lipase (73-393) U/L Procalcitonin (0-0.5) ng/ml TSH (0.300-4.500) uIu/ml Free T4 (0.8-1.6) ng/dl Urine Color Urine Appearance (Clear) Urine pH (4.5-7.5) Ur Specific [place] (1.000-1.030) Urine Protein (Negative) Urine Glucose (UA) (Negative) Urine Ketones (Negative) Urine Blood (Negative) Urine Nitrite (Negative) Urine Bilirubin (Negative) Urine Urobilinogen (Negative) Ur Leukocyte Esterase (Negative) Urine WBC (Auto) (0-5) /hpf Urine RBC (Auto) (0-4) /hpf U Hyaline Cast (Auto) (0-5) /lpf U Epithel Cells (Auto) (0-5) /lpf Urine Bacteria (Auto) (Negative) Salicylates (2.8-20) mg/dl Urine Opiates Screen (Neg) Ur Methadone, Qual (Neg) Acetaminophen (10-30) ug/ml Urine Barbiturates (Neg) Ur Phencyclidine (PCP) (Neg) U Amphetamin/Meth Scrn (Neg) MDMA (Ecstasy) Screen (Neg) U Benzodiazepines Scrn (Neg) Ur Cocaine Metabolite (Neg) U Marijuana (THC) Screen (Neg) Ethyl Alcohol mg/dL (0-3) mg/dl COVID-19 Eval Order CovFluRsv at [facility] SARS-CoV-2 (PCR) NEGATIVE (Negative) Influenza Type A (PCR) Negative (Neg) Influenza Type B (PCR) Negative (Neg) RSV (RT-PCR) Negative (Neg) Imaging Data My Impression: Chest x-ray: ETT in place. Right-sided IJ in place. No pneumothorax. Radiologist's Impression: Preliminary Findings Only See Final Report For Complete Findings CT HEAD: Comparison: CT head 12/22/19. No ICH, mass-effect, or edema. No skull fracture. Stable right parietal scalp sebaceous cyst. Sinuses and mastoid air cells are clear. Radiologist: Destinee Tay M.D. Study ready at 21:06 and initial results transmitted at 21:09 ECG Data Additional Comments: EKG #1 at 1903: Sinus tachycardia with rate of 107. NE 152 QRS [address] elevation or ST depression EKG #2 at 2040: Sinus tachycardia with rate 115. NE 152 QRS [address] elevation or ST depression. MDM Narrative The patient was evaluated in room A1. A complete history and physical exam was performed. Patient was placed on monitoring tech. She was found to be tachycardic. Patient was placed on pulse oximetry which was normal at the time. Large-bore IV access was obtained. Patient was found to be hypotensive. 2 L normal saline bolus was initiated. Police are at bedside and brought the patient's medications bottles that were found next to her. [employer] unit [employer] stores went through the bottles and found 1 bottle containing bupropion extended release 22 left the bottle was filled for 60 tablets in November 27, 2019. There is also a bottle of Advil with 8 pills left the bottle contained 200 pills initially. There was also a empty bottle of gabapentin and empty bottle of levothyroxine. There is also a bottle of iron supplements that there were 42 left and the bottle initially contained 190 tablets. Next to the pills there also suicide notes. Police stated that they were called to the patient's residence yesterday for a domestic dispute, a verbal altercation between the patient and her boyfriend however they left last night. Cardiac monitoring: An order was placed for continuous cardiac monitoring. The monitor shows a rate of 110 with sinus tachycardia rhythm Patient was found to be hypothermic. Patient was placed on Geoff hugger. Accu- Chek was performed and the patient was hypoglycemic. 1 amp of D50 was ordered. EKG was conducted which showed sinus tachycardia with rate of 107. NE interval 152. QRS 120. QTc 544. No ST elevation or ST depression. I spoke with the Poison Control Center [place] who recommended magnesium 2 g over 20 minutes given the patient's prolonged QTC. She also recommends 2 Amps of bicarb and then for the patient to be started on bicarb drip given the wide QRS. She stated that the seizure was most likely due to the polysubstance abuse and in particular bupropion. She also stated hypotension could be due to the bupropion overdose as sometimes bupropion overdose was because of hypertension and then a subsequent hypotension. Bedside MONACO protocol was performed which showed a negative FAST exam, no pneumothorax, no cardiac tamponade pericardial effusion, or AAA. Her IVC is plethoric and not collapsing. Poison control recommends keeping the magnesium above 2. They also recommend that if vasopressors are needed for the patient's continued hypotension, norepinephrine would be the vasopressor of choice. Poison Control Center also recommends obtaining a creatinine kinase. Patient started to become hypoxic despite being tried to i mprove her oxygen saturation by placing on supplemental oxygen first with nasal cannula and then nonrebreather, however she continued to come more hypoxic. Decision was made to intubate the patient. See procedure note. OG tube was placed. Patient also remained hypotensive despite 3 L of normal saline. Patient was started on Levophed drip. Central line was placed. See procedure note. Labs showed a venous pH of 7.13. PCO2 of 53. Venous bicarb 17. Patient's acidosis is metabolic and should be improved with the bicarb. Repeat venous blood gas shows a venous pH of 7.25. Venous PCO2 of 50. Venous bicarb 22. Labs show a potassium of 3.3. Initial lactic acid of 8. Anion gap of 16, most likely due to the patient's lactic acidemia. With the patient's elevated lactic acid, hypothermia, and hypotension the patient was treated empirically with antibiotics cefepime and vancomycin for sepsis. She does have a history of sepsis. TSH of 9 and free T4 0.67. Patient's EKG showed sinus tachycardia with a rate 115 NE interval 152 QRS [address] elevation or ST depression. I did discuss with poison control who recommended EKGs every 6 hours. Patient's lactic acidemia improved to 2.8 status post 3 L normal saline. Family arrived and I did discuss the findings with them. They state that the patient has a long history of drug abuse and was recently released from drug re hab in the last month. They state that the patient does have a history of mental health illness and has tried to commit suicide in the past. They stated that yesterday her and her boyfriend got into an argument and they think that is what sparked the patient to try to take her own life today. Discussed the case with ICU Dr. Marley who states he will be on consult. Discussed case with Dr. Luydmila Sanchez hospitalist who agreed to admit the patient. Impression & Plan Polysubstance overdose, Sepsis, Hypoglycemia, Hypothermia Discharge Plan Visit Data Chief Complaint: Overdose (Intentional) Stated Complaint: OD ED Provider: Edgard Frank Discharge Problem: Polysubstance overdose, Sepsis, Hypoglycemia, Hypothermia Patient Disposition: Admitted As Inpatient Discharge Instructions Interventions: ED Discharge Assessment Last Done: 03/12/20 22:27 Discharge Problem: Polysubstance overdose Qualifiers: Encounter type: initial encounter Injury intent: intentional self-harm Qualified Code(s): T50.902A - Poisoning by unspecified drugs, medicaments and biological substances, intentional self-harm, initial encounter Sepsis Qualifiers: Sepsis type: sepsis due to unspecified organism Sepsis acute organ dysfunction status: unspecified Qualified Code(s): A41.9 - Sepsis, unspecified organism Hypothermia Qualifiers: Encounter type: initial encounter Qualified Code(s): T68.XXXA - Hypothermia, initial encounter
[2020-03-12] MEDS ORDERED: DAPTOmycin 250 MG in SYRINGE 0 ML IV SCH (23:45)
--- NOTE | 2020-03-12 23:50 | XRay Report ---
KUB HISTORY: Overdose/ ingestion of pills/ OG tube COMPARISON: [facility] 08/27/2019. FINDINGS: The bowel gas pattern is unremarkable. There are no dilated loops of small bowel to suggest an obstruction. No renal calculi. No ureteral calculi. No pneumoperitoneum or pneumatosis. Nasogast hedy tube terminates in the proximal stomach. The main pancreatic duct stent which is likely in good p osition. Large amount well-formed stool seen throughout the colon. This has progressed. No additional radiopaque foreign bodies identified overlying the stomach to suggest medication. There is a partial ly visualized rectal thermometer. IMPRESSION: 1. Nasogastric tube terminates in the stomach. 2. Large amount well-formed stool seen throughout the colon consistent with constipation. 3. No pill-shaped radiodensities within the abdomen or pelvis. ACT 112: Negative or not required by law. Electronically signed by: Marcellus Ochoa M.D. 03/12/2020 11:48 PM
[2020-03-13] MEDS ORDERED: STAT IV STA ×2 (00:07→04:02)
[2020-03-13] MEDS ORDERED: SODIUM BICARBONATE 8.4% 150 MEQ in DEXTROSE 5% 1,000 ML IV SCH (00:15)
[2020-03-13] MEDS ORDERED: CEFEPIME CONSULT ACTIVE PRN (00:17)
[2020-03-13] MEDS ORDERED: LORazepam 2 MG/4 ML VIAL IV STA (00:32)
[2020-03-13] MEDS: IPRATROPIUM BROMIDE HFA INHALER INH SCH ×3 (00:33→11:45)
[2020-03-13] MEDS: LEVALBUTEROL TARTRATE 15 GM HFA.AER.AD INH SCH ×2 (00:34→11:45)
[2020-03-13 00:35] LABS: BUN Creatinine Ratio 13.4 (10-20); Calcium 6.8 mg/dl (8.5-10.1); Creatinine Clr Calc Pharmacy 120.6 ml/min; Est GFR (African American) 133.5; Est GFR (Non-African American) 115.2; Magnesium 2.6 mg/dl (1.8-2.4); Phosphorus 1.9 mg/dl (2.5-4.9); Potassium 3.1 mmol/L (3.5-5.1)
[2020-03-13] MEDS ORDERED: POTASSIUM CHLORIDE / WTR 20 MEQ/100 ML PLCT IV ONE (00:43)
[2020-03-13] MEDS ORDERED: CALCIUM CHLORIDE 10% 1,000 MG in SODIUM CHLORIDE 0.9% 50 ML IV STA (00:43)
[2020-03-13] MEDS ORDERED: POTASSIUM PHOS 3 MMOL/1 ML INFUSION IV STA (00:43)
[2020-03-13] MEDS: POTASSIUM CHLORIDE / WTR 10 MEQ/100 ML PLCT IV SCH (01:18)
[2020-03-13 01:24] LABS: Pregnancy Test, Urine Negative (Negative)
[2020-03-13] MEDS ORDERED: MIDAZOLAM HCL 1 MG/ML 2ML VIAL IV PRN (02:19)
[2020-03-13] MEDS ORDERED: POTASSIUM PHOSPHATE 21 MMOL in SODIUM CHLORIDE 0.9% 500 ML IV ONE (03:00)
[2020-03-13] MEDS ORDERED: MIDAZOLAM BOLUS FROM BAG IV PRN (03:43)
[2020-03-13] MEDS ORDERED: STAT IV Infusion **Titration per Protocol STA (03:43)
[2020-03-13] MEDS ORDERED: MIDAZOLAM HCL 125 MG/250 ML BAG IV SCH (03:45)
[2020-03-13] MEDS: propofoL 1,000 MG/100 ML VIAL IV SCH (03:58)
[2020-03-13 04:06] LABS: iSTAT Arterial Blood Gas HCO3 30 meg/L (19-24); iSTAT Arterial Blood Gas pCO2 39 mmHg (35-46); iSTAT Arterial Blood Gas pO2 76 mmHg (80-95); iSTAT Carbon Dioxide 31 mmol/L (24-31); iSTAT FiO2 30 %; iSTAT Site Art Line
[2020-03-13] MEDS: SODIUM BICARBONATE 8.4% 75 MEQ in SODIUM CHLORIDE 0.45 % 1,000 ML IV SCH ×2 (04:30→12:41)
[2020-03-13 05:16] LABS: Eosinophils # (auto) 0.01 K/uL (0-0.5); Eosinophils % (auto) 0.1 %; Hematocrit (blood only) 26.8 % (37-47); Hemoglobin 9.1 g/dL (12.0-16.0); Immature Granulocytes # (auto) 0.02 K/uL (0.00-0.02); Immature Granulocytes % (auto) 0.2 %; Lymphocytes # (auto) 1.57 K/uL (1.2-3.4); Lymphocytes % (auto) 17.7 %; Mean Corpuscular Hemoglobin 31.4 pg (25-34); Mean Corpuscular Volume 92.4 fL (80-100); Monocytes # (auto) 0.99 K/uL (0.11-0.59); Monocytes % (auto) 11.2 %; Neutrophils # (auto) 6.26 K/uL (1.4-6.5); Neutrophils % (auto) 70.8 %; Platelet Count 151 K/uL (130-400); RDW Coefficient of Variation 14.2 % (11.5-14.5); RDW Standard Deviation 47.3 fL (36.4-46.3); White Blood Count 8.85 K/uL (4.8-10.8)
[2020-03-13 05:35] LABS: INR 1.1 (0.9-1.1); Partial Thromboplastin Ratio 0.9; Partial Thromboplastin Time 25.5 Seconds (21.0-31.0)
[2020-03-13 05:44] LABS: Albumin Level 2.5 gm/dl (3.4-5.0); BUN Creatinine Ratio 10.9 (10-20); Bilirubin Direct 0.3 mg/dl (0-0.2); Calcium 7.6 mg/dl (8.5-10.1); Est GFR (African American) 126.3; Potassium 3.3 mmol/L (3.5-5.1)
[2020-03-13 06:02] LABS: Albumin Globulin Ratio 0.9 (0.9-2); Bilirubin,Total 1.1 mg/dl (0.2-1); Globulin 2.8 gm/dl (2.5-4.0); Thyroid Stimulating Hormone 3.8 uIu/ml (0.300-4.500); Total Protein 5.3 gm/dl (6.4-8.2)
--- NOTE | 2020-03-13 07:32 | Critical Care Progress Note ---
Date of Service March 13, 2020 Assessment & Plan (1) Admitted to intensive care unit: Reason Critically Ill: Patient admitted to ICU with intentional polysubstance overdose with suicide attempt, currently requiring intubation, vasopressors, bicarb drip. Neuro - Intentional overdose/suicide attempt/seizures/metabolic encephalopathypatient reported to have overdosed on Wellbutrin, Effexor, levothyroxine, alcohol, iron, and ibuprofen as empty bottles were found next to patient with suicide note -Acetaminophen and salicylates negative -UDS positive for MDMA and EtOH of 180, trending -Initial iron of 215, downtrending to 170. Did speak with toxicology regarding benefit of deferoxamine which was not recommended as patient improving and proceed with supportive care. -CT head negative for acute process -Extubated this morning -Follow-up EEG -Currently 302'd, will need psych eval once medically stable -Toxicology following, recommend continuation of supportive care -Discontinue bicarb drip, QRS within normal limits, patient alkalotic Cardiac - Hypotensionresolved -Troponin negative, EKG with prolonged QTC and QRS -Echo from August 2019 within normal EF 60 to 65%, no significant valvular disease -See ID management below -Central line and A-line inserted, titrating levo for maps greater than 65 - Discontinue as able Prolonged QTCimproved -Continuous monitoring on telemetry Respiratory - Extubated this morning GI - Regular diet when mental status improves Lipase within normal limits Transaminitisconsistent with prior studies on admission, will trend this patient at risk for hepatic injury with polypharmacy ingestion -Ammonia within normal limits -Hepatitis C serology - August 2019 -Repeat hepatitis C serology -Of note patient did have ERCP in August and stent remaining on imaging, may need follow-up with GI RENAL/LYTES - Discontinue bicarb drip - Foleystrict I's and O's ENDO - Hypoglycemiaimproved with dextrose administration -No history diabetes Elevated TSHpatient's TSH of 9 and low T4, hold treatment as patient with reported overdose including levothyroxine -We will repeat in a.m. HEME - H&H within normal limits, monitor CBC and coags and monitor closely for signs of bleeding ID - SepsisPatient presents with lactic acidosis and hypotension, however no leukocytosis and pro calcitonin within normal limits -No obvious signs of aspiration on chest x-ray -Patient does have history of gram-positive bacteremia and IV drug abuse -UA positive for bacteria could be potential source -Continue with Dapto and cefepime for now -Empiric stop it 48 hours -Blood cultures and urine culture pending -COVID-19 negative LINES/IV ACCESS - CVC: Discontinue today A-line discontinued today peripheral IVs, DVT PROPHYLAXIS - SCDs -Lovenox until patient can ambulate Patient was discussed in multidisciplinary rounds I have personally spent 45 minutes of critical care time in the direct management of this patient. This is a life/limb threatening event. This includes time spent evaluating patient, direct bedside care, chart review, placing orders, interpretation of diagnostic studies, discussion with consultants, patient, and/or family members regarding treatment decisions, as well as other required patient management activities. This time is exclusive of all separately billable procedures, and teaching time and separate from and in addition to any other critical care service time. (2) Polysubstance overdose: (3) Hypothermia: (4) UTI (urinary tract infection): (5) Prolonged Q-T interval on ECG: (6) Elevated lactic acid level: (7) Transaminitis: (8) Abnormal thyroid function test: (9) Electrolyte abnormality: (10) Increased anion gap metabolic acidosis: (11) Alcoholism: (12) Mood disorder: Admission and Anticipated Discharge Date Admission Date: March 12, 2020 Subjective No significant overnight events Review of Systems Review of Systems: Unobtainable due to endotracheal tube Physical Exam Physical Exam: General: Alert. nontoxic. Skin: Warm, dry, Head: Atraumatic Ears, nose, mouth and throat: airway patent Cardiovascular: Normal peripheral perfusion Respiratory: no respiratory distress Gastrointestinal: Non distended Musculoskeletal: No deformity, moves all 4 extremities Results & Data Results & Data ([facility]) Vital Signs (Past 12 Hours) Vital Signs Temp Pulse Pulse Pulse Resp BP BP 03/13/20 06:30 37.9 C H 108 H 24 96/61 L 03/13/20 06:00 38.0 C H 112 H 24 106/63 03/13/20 05:30 38.2 C H 117 H 24 105/59 L 03/13/20 05:00 38.2 C H 120 H 24 103/64 03/13/20 04:59 112 H 24 03/13/20 04:30 38.3 C H 123 H 24 103/60 03/13/20 04:00 38.3 C H 127 H 24 90/65 L 03/13/20 03:30 38.3 C H 127 H 24 99/66 L 03/13/20 03:00 38.0 C H 128 H 24 97/68 L 03/13/20 02:30 37.9 C H 127 H 24 116/78 03/13/20 02:00 37.8 C H 127 H 24 103/66 03/13/20 01:58 128 H 25 H 03/13/20 01:30 134 H 24 102/63 03/13/20 01:00 131 H 24 109/66 03/13/20 00:30 130 H 24 98/64 L 03/13/20 00:00 37.2 C 132 H 24 107/61 03/12/20 23:30 134 H 24 102/61 03/12/20 23:20 24 03/12/20 23:17 36.5 C 144 H 20 95/57 L 03/12/20 23:00 912 H 24 98/61 L 03/12/20 22:50 145 H 20 03/12/20 22:45 128 H 24 85/44 L 03/12/20 22:30 130 H 20 03/12/20 22:15 35.9 C L 130 H 97/49 L 03/12/20 22:00 126 H 89/49 L 03/12/20 21:45 123 H 92/51 L 03/12/20 21:33 34.8 C L 122 H 88/48 L 03/12/20 21:25 120 H 87/50 L 03/12/20 21:22 121 H 87/50 L 03/12/20 21:15 120 H 87/53 L 03/12/20 21:12 120 H 90/51 L 03/12/20 21:10 118 H 92/51 L 03/12/20 21:07 118 H 92/49 L 03/12/20 21:06 118 H 91/51 L 03/12/20 20:45 116 H 92/53 L 03/12/20 20:42 115 H 93/53 L 03/12/20 20:40 115 H 91/51 L 03/12/20 20:37 114 H 90/53 L 03/12/20 20:35 113 H 90/53 L 03/12/20 20:33 113 H 87/54 L 03/12/20 20:30 112 H 91/53 L 03/12/20 20:27 110 H 88/51 L 03/12/20 20:25 105 H 66/36 L 03/12/20 20:22 105 H 66/34 L 03/12/20 20:20 104 H 66/37 L 03/12/20 20:17 105 H 65/37 L 03/12/20 20:15 104 H 65/38 L 03/12/20 20:12 104 H 66/38 L 03/12/20 20:10 103 H 66/38 L 03/12/20 20:07 103 H 69/38 L 03/12/20 20:05 103 H 69/39 L 03/12/20 20:03 102 H 66/38 L 03/12/20 20:01 102 H 03/12/20 20:00 102 H 16 69/38 L 03/12/20 19:57 101 H 68/38 L 03/12/20 19:55 101 H 16 67/40 L 03/12/20 19:52 101 H 16 64/38 L 03/12/20 19:50 101 H 16 65/38 L 03/12/20 19:48 101 H 13 67/36 L 03/12/20 19:45 101 H 16 67/39 L 03/12/20 19:44 100 H 17 65/39 L 03/12/20 19:42 100 H 17 64/37 L 03/12/20 19:40 100 H 17 67/40 L 03/12/20 19:37 100 H 19 60/39 L 03/12/20 19:35 101 H 17 60/37 L 03/12/20 19:31 99 H 17 03/12/20 19:30 99 H 17 58/37 L Pulse Ox 03/13/20 06:30 98 03/13/20 06:00 96 03/13/20 05:30 97 03/13/20 05:00 97 03/13/20 04:59 97 03/13/20 04:30 97 03/13/20 04:00 97 03/13/20 03:30 98 03/13/20 03:00 99 03/13/20 02:30 100 03/13/20 02:00 98 03/13/20 01:58 97 03/13/20 01:30 96 03/13/20 01:00 94 03/13/20 00:30 95 03/13/20 00:00 94 03/12/20 23:30 93 03/12/20 23:20 03/12/20 23:17 94 03/12/20 23:00 96 03/12/20 22:50 98 03/12/20 22:45 93 03/12/20 22:30 100 03/12/20 22:15 100 03/12/20 22:00 100 03/12/20 21:45 96 03/12/20 21:33 97 03/12/20 21:25 98 03/12/20 21:22 99 03/12/20 21:15 99 03/12/20 21:12 99 03/12/20 21:10 99 03/12/20 21:07 100 03/12/20 21:06 100 03/12/20 20:45 100 03/12/20 20:42 94 03/12/20 20:40 94 03/12/20 20:37 95 03/12/20 20:35 95 03/12/20 20:33 93 03/12/20 20:30 97 03/12/20 20:27 98 03/12/20 20:25 98 03/12/20 20:22 98 03/12/20 20:20 99 03/12/20 20:17 99 03/12/20 20:15 99 03/12/20 20:12 100 03/12/20 20:10 100 03/12/20 20:07 100 03/12/20 20:05 100 03/12/20 20:03 100 03/12/20 20:01 100 03/12/20 20:00 100 03/12/20 19:57 03/12/20 19:55 100 03/12/20 19:52 03/12/20 19:50 03/12/20 19:48 03/12/20 19:45 98 03/12/20 19:44 100 03/12/20 19:42 100 03/12/20 19:40 100 03/12/20 19:37 90 03/12/20 19:35 90 03/12/20 19:31 94 03/12/20 19:30 97 Laboratory Results 03/13/20 03/13/2003/13/21 Range/Units 06:41 05:07 05:07 WBC (4.8-10.8) K/uL RBC (4.2-5.4) M/uL Hgb (12.0-16.0) g/dL Hct (37-47) % MCV (80-100) fL MCH (25-34) pg MCHC (32-36) g/dL RDW Std Deviation (36.4-46.3) fL RDW Coeff of Meme (11.5-14.5) % Plt Count (130-400) K/uL MPV (7.4-10.4) fL Immature Gran % (Auto) % Neut % (Auto) % Lymph % (Auto) % [place] % (Auto) % Eos % (Auto) % Baso % (Auto) % Neut # (Auto) (1.4-6.5) K/uL Lymph # (Auto) (1.2-3.4) K/uL [place] # (Auto) (0.11-0.59) K/uL Eos # (Auto) (0-0.5) K/uL Baso # (Auto) (0-0.2) K/uL Immature Gran # (Auto) (0.00-0.02) K/uL PT 12.0 (9.0-12.0) Seconds INR 1.1 (0.9-1.1) APTT 25.5 (21.0-31.0) Seconds PTT Ratio 0.9 Sample Site POC pH (7.35-7.45) POC pCO2 (35-46) mmHg POC pO2 (80-95) mmHg POC HCO3 (19-24) steph/L POC Total CO2 (24-31) mmol/L POC Base Excess (-9-1.8) steph/L POC ABG O2 Sat (90-95) % Bear Test VBG pH (7.36-7.41) VBG pCO2 (38-50) mmHg VBG pO2 mmHg VBG HCO3 mmol/L VBG O2 Saturation % VBG Base Excess mEq/L Barometric Pressure mm/Hg O2 Delivery Device POC O2 Rate Minute Ventilation POC FiO2 % Tidal Volume PEEP Sodium 142 (136-145) mmol/L Potassium 3.3 L (3.5-5.1) mmol/L Chloride 107 (98-107) mmol/L Carbon Dioxide 32 (21-32) mmol/L Anion Gap 3.0 (3-11) BUN 8 (7-18) mg/dl Creatinine 0.73 (0.6-1.2) mg/dl Est Cr Clr Drug Dosing 114.0 Est GFR ( Amer) 126.3 Est GFR (Non-Af Amer) 109.0 BUN/Creatinine Ratio 10.9 (10-20) Glucose 60 L (70-99) mg/dl POC Glucose 71 (70-99) mg/dl Lactate (0.4-2.0) mmol/L Calcium 7.6 L (8.5-10.1) mg/dl Ionized Calcium (1.12-1.32) mmol/L Phosphorus (2.5-4.9) mg/dl Magnesium (1.8-2.4) mg/dl Iron (35-150) mcg/dl Total Bilirubin 1.1 H D (0.2-1) mg/dl Direct Bilirubin 0.3 H (0-0.2) mg/dl AST 200 H (15-37) U/L ALT 99 H (12-78) U/L Alkaline Phosphatase 224 H (45-117) U/L Ammonia (11-32) umol/L Total Creatine Kinase (26-192) U/L Total Protein 5.3 L (6.4-8.2) gm/dl Albumin 2.5 L (3.4-5.0) gm/dl Globulin 2.8 (2.5-4.0) gm/dl Albumin/Globulin Ratio 0.9 (0.9-2) Lipase (73-393) U/L Procalcitonin (0-0.5) ng/ml TSH 3.800 (0.300-4.500) uIu/ml Free T4 (0.8-1.6) ng/dl Urine Color Urine Appearance (Clear) Urine pH (4.5-7.5) Ur Specific [place] (1.000-1.030) Urine Protein (Negative) Urine Glucose (UA) (Negative) Urine Ketones (Negative) Urine Blood (Negative) Urine Nitrite (Negative) Urine Bilirubin (Negative) Urine Urobilinogen (Negative) Ur Leukocyte Esterase (Negative) Urine WBC (Auto) (0-5) /hpf Urine RBC (Auto) (0-4) /hpf U Hyaline Cast (Auto) (0-5) /lpf U Epithel Cells (Auto) (0-5) /lpf Urine Bacteria (Auto) (Negative) Urine Test (Negative) Nasal Screen MRSA (PCR) (Negative) Salicylates (2.8-20) mg/dl Urine Opiates Screen (Neg) Ur Methadone, Qual (Neg) Acetaminophen (10-30) ug/ml Urine Barbiturates (Neg) Ur Phencyclidine (PCP) (Neg) U Amphetamin/Meth Scrn (Neg) Urine MDEA MDMA (Ecstasy) Screen (Neg) MDMA Urine MDMA U Benzodiazepines Scrn (Neg) Ur Cocaine Metabolite (Neg) U Marijuana (THC) Screen (Neg) Ethyl Alcohol mg/dL (0-3) mg/dl COVID-19 Eval Order SARS-CoV-2 (PCR) (Negative) Influenza Type A (PCR) (Neg) Influenza Type B (PCR) (Neg) RSV (RT-PCR) (Neg) Blood Type Antibody Screen 03/13/20 03/13/20 03/13/20 Range/Units 05:07 03:52 00:15 WBC 8.85 (4.8-10.8) K/uL RBC 2.90 L (4.2-5.4) M/uL Hgb 9.1 L (12.0-16.0) g/dL Hct 26.8 L (37-47) % MCV 92.4 (80-100) fL MCH 31.4 (25-34) pg MCHC 34.0 (32-36) g/dL RDW Std Deviation 47.3 H (36.4-46.3) fL RDW Coeff of Meme 14.2 (11.5-14.5) % Plt Count 151 (130-400) K/uL MPV 9.0 (7.4-10.4) fL Immature Gran % (Auto) 0.2 % Neut % (Auto) 70.8 % Lymph % (Auto) 17.7 % [place] % (Auto) 11.2 % Eos % (Auto) 0.1 % Baso % (Auto) 0.0 % Neut # (Auto) 6.26 (1.4-6.5) K/uL Lymph # (Auto) 1.57 (1.2-3.4) K/uL [place] # (Auto) 0.99 H (0.11-0.59) K/uL Eos # (Auto) 0.01 (0-0.5) K/uL Baso # (Auto) 0.00 (0-0.2) K/uL Immature Gran # (Auto) 0.02 (0.00-0.02) K/uL PT (9.0-12.0) Seconds INR (0.9-1.1) APTT (21.0-31.0) Seconds PTT Ratio Sample Site Art Line POC pH 7.50 H (7.35-7.45) POC pCO2 39 (35-46) mmHg POC pO2 76 L (80-95) mmHg POC HCO3 30 H (19-24) steph/L POC Total CO2 31 (24-31) mmol/L POC Base Excess 7.0 H (-9-1.8) steph/L POC ABG O2 Sat 96.0 H (90-95) % Bear Test NA VBG pH (7.36-7.41) VBG pCO2 (38-50) mmHg VBG pO2 mmHg VBG HCO3 mmol/L VBG O2 Saturation % VBG Base Excess mEq/L Barometric Pressure mm/Hg O2 Delivery Device Ventilator POC O2 Rate 24 Minute Ventilation 8.7 POC FiO2 30 % Tidal Volume 370 PEEP 5 Sodium (136-145) mmol/L Potassium (3.5-5.1) mmol/L Chloride (98-107) mmol/L Carbon Dioxide (21-32) mmol/L Anion Gap (3-11) BUN (7-18) mg/dl Creatinine (0.6-1.2) mg/dl Est Cr Clr Drug Dosing Est GFR ( Amer) Est GFR (Non-Af Amer) BUN/Creatinine Ratio (10-20) Glucose (70-99) mg/dl POC Glucose (70-99) mg/dl Lactate (0.4-2.0) mmol/L Calcium (8.5-10.1) mg/dl Ionized Calcium (1.12-1.32) mmol/L Phosphorus (2.5-4.9) mg/dl Magnesium (1.8-2.4) mg/dl Iron (35-150) mcg/dl Total Bilirubin (0.2-1) mg/dl Direct Bilirubin (0-0.2) mg/dl AST (15-37) U/L ALT (12-78) U/L Alkaline Phosphatase (45-117) U/L Ammonia (11-32) umol/L Total Creatine Kinase (26-192) U/L Total Protein (6.4-8.2) gm/dl Albumin (3.4-5.0) gm/dl Globulin (2.5-4.0) gm/dl Albumin/Globulin Ratio (0.9-2) Lipase (73-393) U/L Procalcitonin (0-0.5) ng/ml TSH (0.300-4.500) uIu/ml Free T4 (0.8-1.6) ng/dl Urine Color Urine Appearance (Clear) Urine pH (4.5-7.5) Ur Specific [place] (1.000-1.030) Urine Protein (Negative) Urine Glucose (UA) (Negative) Urine Ketones (Negative) Urine Blood (Negative) Urine Nitrite (Negative) Urine Bilirubin (Negative) Urine Urobilinogen (Negative) Ur Leukocyte Esterase (Negative) Urine WBC (Auto) (0-5) /hpf Urine RBC (Auto) (0-4) /hpf U Hyaline Cast (Auto) (0-5) /lpf U Epithel Cells (Auto) (0-5) /lpf Urine Bacteria (Auto) (Negative) Urine Test Negative (Negative) Nasal Screen MRSA (PCR) (Negative) Salicylates (2.8-20) mg/dl Urine Opiates Screen (Neg) Ur Methadone, Qual (Neg) Acetaminophen (10-30) ug/ml Urine Barbiturates (Neg) Ur Phencyclidine (PCP) (Neg) U Amphetamin/Meth Scrn (Neg) Urine MDEA MDMA (Ecstasy) Screen (Neg) MDMA Urine MDMA U Benzodiazepines Scrn (Neg) Ur Cocaine Metabolite (Neg) U Marijuana (THC) Screen (Neg) Ethyl Alcohol mg/dL (0-3) mg/dl COVID-19 Eval Order SARS-CoV-2 (PCR) (Negative) Influenza Type A (PCR) (Neg) Influenza Type B (PCR) (Neg) RSV (RT-PCR) (Neg) Blood Type Antibody Screen 03/12/20 03/12/20 03/12/20 Range/Units 23:50 23:50 23:43 WBC (4.8-10.8) K/uL RBC (4.2-5.4) M/uL Hgb (12.0-16.0) g/dL Hct (37-47) % MCV (80-100) fL MCH (25-34) pg MCHC (32-36) g/dL RDW Std Deviation (36.4-46.3) fL RDW Coeff of Meme (11.5-14.5) % Plt Count (130-400) K/uL MPV (7.4-10.4) fL Immature Gran % (Auto) % Neut % (Auto) % Lymph % (Auto) % [place] % (Auto) % Eos % (Auto) % Baso % (Auto) % Neut # (Auto) (1.4-6.5) K/uL Lymph # (Auto) (1.2-3.4) K/uL [place] # (Auto) (0.11-0.59) K/uL Eos # (Auto) (0-0.5) K/uL Baso # (Auto) (0-0.2) K/uL Immature Gran # (Auto) (0.00-0.02) K/uL PT (9.0-12.0) Seconds INR (0.9-1.1) APTT (21.0-31.0) Seconds PTT Ratio Sample Site POC pH (7.35-7.45) POC pCO2 (35-46) mmHg POC pO2 (80-95) mmHg POC HCO3 (19-24) steph/L POC Total CO2 (24-31) mmol/L POC Base Excess (-9-1.8) steph/L POC ABG O2 Sat (90-95) % Bear Test VBG pH (7.36-7.41) VBG pCO2 (38-50) mmHg VBG pO2 mmHg VBG HCO3 mmol/L VBG O2 Saturation % VBG Base Excess mEq/L Barometric Pressure mm/Hg O2 Delivery Device POC O2 Rate Minute Ventilation POC FiO2 % Tidal Volume PEEP Sodium (136-145) mmol/L Potassium (3.5-5.1) mmol/L Chloride (98-107) mmol/L Carbon Dioxide (21-32) mmol/L Anion Gap (3-11) BUN (7-18) mg/dl Creatinine (0.6-1.2) mg/dl Est Cr Clr Drug Dosing Est GFR ( Amer) Est GFR (Non-Af Amer) BUN/Creatinine Ratio (10-20) Glucose (70-99) mg/dl POC Glucose 207 H (70-99) mg/dl Lactate (0.4-2.0) mmol/L Calcium (8.5-10.1) mg/dl Ionized Calcium (1.12-1.32) mmol/L Phosphorus (2.5-4.9) mg/dl Magnesium (1.8-2.4) mg/dl Iron (35-150) mcg/dl Total Bilirubin (0.2-1) mg/dl Direct Bilirubin (0-0.2) mg/dl AST (15-37) U/L ALT (12-78) U/L Alkaline Phosphatase (45-117) U/L Ammonia 30.4 (11-32) umol/L Total Creatine Kinase (26-192) U/L Total Protein (6.4-8.2) gm/dl Albumin (3.4-5.0) gm/dl Globulin (2.5-4.0) gm/dl Albumin/Globulin Ratio (0.9-2) Lipase (73-393) U/L Procalcitonin (0-0.5) ng/ml TSH (0.300-4.500) uIu/ml Free T4 (0.8-1.6) ng/dl Urine Color Urine Appearance (Clear) Urine pH (4.5-7.5) Ur Specific [place] (1.000-1.030) Urine Protein (Negative) Urine Glucose (UA) (Negative) Urine Ketones (Negative) Urine Blood (Negative) Urine Nitrite (Negative) Urine Bilirubin (Negative) Urine Urobilinogen (Negative) Ur Leukocyte Esterase (Negative) Urine WBC (Auto) (0-5) /hpf Urine RBC (Auto) (0-4) /hpf U Hyaline Cast (Auto) (0-5) /lpf U Epithel Cells (Auto) (0-5) /lpf Urine Bacteria (Auto) (Negative) Urine Test (Negative) Nasal Screen MRSA (PCR) (Negative) Salicylates (2.8-20) mg/dl Urine Opiates Screen (Neg) Ur Methadone, Qual (Neg) Acetaminophen (10-30) ug/ml Urine Barbiturates (Neg) Ur Phencyclidine (PCP) (Neg) U Amphetamin/Meth Scrn (Neg) Urine MDEA MDMA (Ecstasy) Screen (Neg) MDMA Urine MDMA U Benzodiazepines Scrn (Neg) Ur Cocaine Metabolite (Neg) U Marijuana (THC) Screen (Neg) Ethyl Alcohol mg/dL (0-3) mg/dl COVID-19 Eval Order SARS-CoV-2 (PCR) (Negative) Influenza Type A (PCR) (Neg) Influenza Type B (PCR) (Neg) RSV (RT-PCR) (Neg) Blood Type O Negative Antibody Screen NEGATIVE 03/12/20 03/12/20 03/12/20 Range/Units 23:43 23:43 23:43 WBC (4.8-10.8) K/uL RBC (4.2-5.4) M/uL Hgb (12.0-16.0) g/dL Hct (37-47) % MCV (80-100) fL MCH (25-34) pg MCHC (32-36) g/dL RDW Std Deviation (36.4-46.3) fL RDW Coeff of Meme (11.5-14.5) % Plt Count (130-400) K/uL MPV (7.4-10.4) fL Immature Gran % (Auto) % Neut % (Auto) % Lymph % (Auto) % [place] % (Auto) % Eos % (Auto) % Baso % (Auto) % Neut # (Auto) (1.4-6.5) K/uL Lymph # (Auto) (1.2-3.4) K/uL [place] # (Auto) (0.11-0.59) K/uL Eos # (Auto) (0-0.5) K/uL Baso # (Auto) (0-0.2) K/uL Immature Gran # (Auto) (0.00-0.02) K/uL PT (9.0-12.0) Seconds INR (0.9-1.1) APTT (21.0-31.0) Seconds PTT Ratio Sample Site POC pH (7.35-7.45) POC pCO2 (35-46) mmHg POC pO2 (80-95) mmHg POC HCO3 (19-24) steph/L POC Total CO2 (24-31) mmol/L POC Base Excess (-9-1.8) steph/L POC ABG O2 Sat (90-95) % Bear Test VBG pH (7.36-7.41) VBG pCO2 (38-50) mmHg VBG pO2 mmHg VBG HCO3 mmol/L VBG O2 Saturation % VBG Base Excess mEq/L Barometric Pressure mm/Hg O2 Delivery Device POC O2 Rate Minute Ventilation POC FiO2 % Tidal Volume PEEP Sodium (136-145) mmol/L Potassium (3.5-5.1) mmol/L Chloride (98-107) mmol/L Carbon Dioxide (21-32) mmol/L Anion Gap (3-11) BUN (7-18) mg/dl Creatinine (0.6-1.2) mg/dl Est Cr Clr Drug Dosing Est GFR ( Amer) Est GFR (Non-Af Amer) BUN/Creatinine Ratio (10-20) Glucose (70-99) mg/dl POC Glucose (70-99) mg/dl Lactate 1.6 (0.4-2.0) mmol/L Calcium (8.5-10.1) mg/dl Ionized Calcium 0.95 L (1.12-1.32) mmol/L Phosphorus (2.5-4.9) mg/dl Magnesium (1.8-2.4) mg/dl Iron (35-150) mcg/dl Total Bilirubin (0.2-1) mg/dl Direct Bilirubin (0-0.2) mg/dl AST (15-37) U/L ALT (12-78) U/L Alkaline Phosphatase (45-117) U/L Ammonia (11-32) umol/L Total Creatine Kinase (26-192) U/L Total Protein (6.4-8.2) gm/dl Albumin (3.4-5.0) gm/dl Globulin (2.5-4.0) gm/dl Albumin/Globulin Ratio (0.9-2) Lipase (73-393) U/L Procalcitonin (0-0.5) ng/ml TSH (0.300-4.500) uIu/ml Free T4 (0.8-1.6) ng/dl Urine Color Urine Appearance (Clear) Urine pH (4.5-7.5) Ur Specific [place] (1.000-1.030) Urine Protein (Negative) Urine Glucose (UA) (Negative) Urine Ketones (Negative) Urine Blood (Negative) Urine Nitrite (Negative) Urine Bilirubin (Negative) Urine Urobilinogen (Negative) Ur Leukocyte Esterase (Negative) Urine WBC (Auto) (0-5) /hpf Urine RBC (Auto) (0-4) /hpf U Hyaline Cast (Auto) (0-5) /lpf U Epithel Cells (Auto) (0-5) /lpf Urine Bacteria (Auto) (Negative) Urine Test (Negative) Nasal Screen MRSA (PCR) (Negative) Salicylates (2.8-20) mg/dl Urine Opiates Screen (Neg) Ur Methadone, Qual (Neg) Acetaminophen (10-30) ug/ml Urine Barbiturates (Neg) Ur Phencyclidine (PCP) (Neg) U Amphetamin/Meth Scrn (Neg) Urine MDEA MDMA (Ecstasy) Screen (Neg) MDMA Urine MDMA U Benzodiazepines Scrn (Neg) Ur Cocaine Metabolite (Neg) U Marijuana (THC) Screen (Neg) Ethyl Alcohol mg/dL 36.0 H (0-3) mg/dl COVID-19 Eval Order SARS-CoV-2 (PCR) (Negative) Influenza Type A (PCR) (Neg) Influenza Type B (PCR) (Neg) RSV (RT-PCR) (Neg) Blood Type Antibody Screen 03/12/20 03/12/20 03/12/20 Range/Units 23:43 23:30 23:20 WBC (4.8-10.8) K/uL RBC (4.2-5.4) M/uL Hgb (12.0-16.0) g/dL Hct (37-47) % MCV (80-100) fL MCH (25-34) pg MCHC (32-36) g/dL RDW Std Deviation (36.4-46.3) fL RDW Coeff of Meme (11.5-14.5) % Plt Count (130-400) K/uL MPV (7.4-10.4) fL Immature Gran % (Auto) % Neut % (Auto) % Lymph % (Auto) % [place] % (Auto) % Eos % (Auto) % Baso % (Auto) % Neut # (Auto) (1.4-6.5) K/uL Lymph # (Auto) (1.2-3.4) K/uL [place] # (Auto) (0.11-0.59) K/uL Eos # (Auto) (0-0.5) K/uL Baso # (Auto) (0-0.2) K/uL Immature Gran # (Auto) (0.00-0.02) K/uL PT (9.0-12.0) Seconds INR (0.9-1.1) APTT (21.0-31.0) Seconds PTT Ratio Sample Site Art Line POC pH 7.30 L (7.35-7.45) POC pCO2 46 (35-46) mmHg POC pO2 80 (80-95) mmHg POC HCO3 23 (19-24) steph/L POC Total CO2 24 (24-31) mmol/L POC Base Excess -4.0 (-9-1.8) steph/L POC ABG O2 Sat 94.0 (90-95) % Bear Test NA VBG pH (7.36-7.41) VBG pCO2 (38-50) mmHg VBG pO2 mmHg VBG HCO3 mmol/L VBG O2 Saturation % VBG Base Excess mEq/L Barometric Pressure mm/Hg O2 Delivery Device Ventilator POC O2 Rate 20 Minute Ventilation 7.3 POC FiO2 30 % Tidal Volume 370 PEEP 5 Sodium 143 (136-145) mmol/L Potassium 3.1 L (3.5-5.1) mmol/L Chloride 108 H (98-107) mmol/L Carbon Dioxide 26 (21-32) mmol/L Anion Gap 9.0 (3-11) BUN 9 (7-18) mg/dl Creatinine 0.69 D (0.6-1.2) mg/dl Est Cr Clr Drug Dosing 120.6 Est GFR ( Amer) 133.5 Est GFR (Non-Af Amer) 115.2 BUN/Creatinine Ratio 13.4 (10-20) Glucose 196 H (70-99) mg/dl POC Glucose (70-99) mg/dl Lactate (0.4-2.0) mmol/L Calcium 6.8 L (8.5-10.1) mg/dl Ionized Calcium (1.12-1.32) mmol/L Phosphorus 1.9 L (2.5-4.9) mg/dl Magnesium 2.6 H (1.8-2.4) mg/dl Iron 170 H (35-150) mcg/dl Total Bilirubin (0.2-1) mg/dl Direct Bilirubin (0-0.2) mg/dl AST (15-37) U/L ALT 118 H (12-78) U/L Alkaline Phosphatase (45-117) U/L Ammonia (11-32) umol/L Total Creatine Kinase (26-192) U/L Total Protein (6.4-8.2) gm/dl Albumin (3.4-5.0) gm/dl Globulin (2.5-4.0) gm/dl Albumin/Globulin Ratio (0.9-2) Lipase (73-393) U/L Procalcitonin (0-0.5) ng/ml TSH (0.300-4.500) uIu/ml Free T4 (0.8-1.6) ng/dl Urine Color Urine Appearance (Clear) Urine pH (4.5-7.5) Ur Specific [place] (1.000-1.030) Urine Protein (Negative) Urine Glucose (UA) (Negative) Urine Ketones (Negative) Urine Blood (Negative) Urine Nitrite (Negative) Urine Bilirubin (Negative) Urine Urobilinogen (Negative) Ur Leukocyte Esterase (Negative) Urine WBC (Auto) (0-5) /hpf Urine RBC (Auto) (0-4) /hpf U Hyaline Cast (Auto) (0-5) /lpf U Epithel Cells (Auto) (0-5) /lpf Urine Bacteria (Auto) (Negative) Urine Test (Negative) Nasal Screen MRSA (PCR) Negative (Negative) Salicylates (2.8-20) mg/dl Urine Opiates Screen (Neg) Ur Methadone, Qual (Neg) Acetaminophen (10-30) ug/ml Urine Barbiturates (Neg) Ur Phencyclidine (PCP) (Neg) U Amphetamin/Meth Scrn (Neg) Urine MDEA MDMA (Ecstasy) Screen (Neg) MDMA Urine MDMA U Benzodiazepines Scrn (Neg) Ur Cocaine Metabolite (Neg) U Marijuana (THC) Screen (Neg) Ethyl Alcohol mg/dL (0-3) mg/dl COVID-19 Eval Order SARS-CoV-2 (PCR) (Negative) Influenza Type A (PCR) (Neg) Influenza Type B (PCR) (Neg) RSV (RT-PCR) (Neg) Blood Type Antibody Screen 03/12/20 03/12/20 03/12/20 Range/Units 21:56 21:17 21:17 WBC (4.8-10.8) K/uL RBC (4.2-5.4) M/uL Hgb (12.0-16.0) g/dL Hct (37-47) % MCV (80-100) fL MCH (25-34) pg MCHC (32-36) g/dL RDW Std Deviation (36.4-46.3) fL RDW Coeff of Meme (11.5-14.5) % Plt Count (130-400) K/uL MPV (7.4-10.4) fL Immature Gran % (Auto) % Neut % (Auto) % Lymph % (Auto) % [place] % (Auto) % Eos % (Auto) % Baso % (Auto) % Neut # (Auto) (1.4-6.5) K/uL Lymph # (Auto) (1.2-3.4) K/uL [place] # (Auto) (0.11-0.59) K/uL Eos # (Auto) (0-0.5) K/uL Baso # (Auto) (0-0.2) K/uL Immature Gran # (Auto) (0.00-0.02) K/uL PT (9.0-12.0) Seconds INR (0.9-1.1) APTT (21.0-31.0) Seconds PTT Ratio Sample Site POC pH (7.35-7.45) POC pCO2 (35-46) mmHg POC pO2 (80-95) mmHg POC HCO3 (19-24) steph/L POC Total CO2 (24-31) mmol/L POC Base Excess (-9-1.8) steph/L POC ABG O2 Sat (90-95) % Bear Test VBG pH (7.36-7.41) VBG pCO2 (38-50) mmHg VBG pO2 mmHg VBG HCO3 mmol/L VBG O2 Saturation % VBG Base Excess mEq/L Barometric Pressure mm/Hg O2 Delivery Device POC O2 Rate Minute Ventilation POC FiO2 % Tidal Volume PEEP Sodium (136-145) mmol/L Potassium (3.5-5.1) mmol/L Chloride (98-107) mmol/L Carbon Dioxide (21-32) mmol/L Anion Gap (3-11) BUN (7-18) mg/dl Creatinine (0.6-1.2) mg/dl Est Cr Clr Drug Dosing Est GFR ( Amer) Est GFR (Non-Af Amer) BUN/Creatinine Ratio (10-20) Glucose (70-99) mg/dl POC Glucose 221 H (70-99) mg/dl Lactate (0.4-2.0) mmol/L Calcium (8.5-10.1) mg/dl Ionized Calcium (1.12-1.32) mmol/L Phosphorus (2.5-4.9) mg/dl Magnesium (1.8-2.4) mg/dl Iron (35-150) mcg/dl Total Bilirubin (0.2-1) mg/dl Direct Bilirubin (0-0.2) mg/dl AST (15-37) U/L ALT (12-78) U/L Alkaline Phosphatase (45-117) U/L Ammonia (11-32) umol/L Total Creatine Kinase (26-192) U/L Total Protein (6.4-8.2) gm/dl Albumin (3.4-5.0) gm/dl Globulin (2.5-4.0) gm/dl Albumin/Globulin Ratio (0.9-2) Lipase (73-393) U/L Procalcitonin (0-0.5) ng/ml TSH (0.300-4.500) uIu/ml Free T4 (0.8-1.6) ng/dl Urine Color Urine Appearance (Clear) Urine pH (4.5-7.5) Ur Specific [place] (1.000-1.030) Urine Protein (Negative) Urine Glucose (UA) (Negative) Urine Ketones (Negative) Urine Blood (Negative) Urine Nitrite (Negative) Urine Bilirubin (Negative) Urine Urobilinogen (Negative) Ur Leukocyte Esterase (Negative) Urine WBC (Auto) (0-5) /hpf Urine RBC (Auto) (0-4) /hpf U Hyaline Cast (Auto) (0-5) /lpf U Epithel Cells (Auto) (0-5) /lpf Urine Bacteria (Auto) (Negative) Urine Test (Negative) Nasal Screen MRSA (PCR) (Negative) Salicylates (2.8-20) mg/dl Urine Opiates Screen (Neg) Ur Methadone, Qual (Neg) Acetaminophen (10-30) ug/ml Urine Barbiturates (Neg) Ur Phencyclidine (PCP) (Neg) U Amphetamin/Meth Scrn (Neg) Urine MDEA MDMA (Ecstasy) Screen (Neg) MDMA Urine MDMA U Benzodiazepines Scrn (Neg) Ur Cocaine Metabolite (Neg) U Marijuana (THC) Screen (Neg) Ethyl Alcohol mg/dL (0-3) mg/dl COVID-19 Eval Order CovFluRsv at [facility] SARS-CoV-2 (PCR) NEGATIVE (Negative) Influenza Type A (PCR) Negative (Neg) Influenza Type B (PCR) Negative (Neg) RSV (RT-PCR) Negative (Neg) Blood Type Antibody Screen 03/12/20 03/12/20 03/12/20 Range/Units 20:47 20:42 19:40 WBC (4.8-10.8) K/uL RBC (4.2-5.4) M/uL Hgb (12.0-16.0) g/dL Hct (37-47) % MCV (80-100) fL MCH (25-34) pg MCHC (32-36) g/dL RDW Std Deviation (36.4-46.3) fL RDW Coeff of Meme (11.5-14.5) % Plt Count (130-400) K/uL MPV (7.4-10.4) fL Immature Gran % (Auto) % Neut % (Auto) % Lymph % (Auto) % [place] % (Auto) % Eos % (Auto) % Baso % (Auto) % Neut # (Auto) (1.4-6.5) K/uL Lymph # (Auto) (1.2-3.4) K/uL [place] # (Auto) (0.11-0.59) K/uL Eos # (Auto) (0-0.5) K/uL Baso # (Auto) (0-0.2) K/uL Immature Gran # (Auto) (0.00-0.02) K/uL PT (9.0-12.0) Seconds INR (0.9-1.1) APTT (21.0-31.0) Seconds PTT Ratio Sample Site POC pH (7.35-7.45) POC pCO2 (35-46) mmHg POC pO2 (80-95) mmHg POC HCO3 (19-24) steph/L POC Total CO2 (24-31) mmol/L POC Base Excess (-9-1.8) steph/L POC ABG O2 Sat (90-95) % Bear Test VBG pH 7.25 L (7.36-7.41) VBG pCO2 50 (38-50) mmHg VBG pO2 71 mmHg VBG HCO3 22 mmol/L VBG O2 Saturation 89.3 % VBG Base Excess -5.5 mEq/L Barometric Pressure 733.1 mm/Hg O2 Delivery Device POC O2 Rate Minute Ventilation POC FiO2 % Tidal Volume PEEP Sodium (136-145) mmol/L Potassium (3.5-5.1) mmol/L Chloride (98-107) mmol/L Carbon Dioxide (21-32) mmol/L Anion Gap (3-11) BUN (7-18) mg/dl Creatinine (0.6-1.2) mg/dl Est Cr Clr Drug Dosing Est GFR ( Amer) Est GFR (Non-Af Amer) BUN/Creatinine Ratio (10-20) Glucose (70-99) mg/dl POC Glucose (70-99) mg/dl Lactate 2.8 H* (0.4-2.0) mmol/L Calcium (8.5-10.1) mg/dl Ionized Calcium (1.12-1.32) mmol/L Phosphorus (2.5-4.9) mg/dl Magnesium (1.8-2.4) mg/dl Iron (35-150) mcg/dl Total Bilirubin (0.2-1) mg/dl Direct Bilirubin (0-0.2) mg/dl AST (15-37) U/L ALT (12-78) U/L Alkaline Phosphatase (45-117) U/L Ammonia (11-32) umol/L Total Creatine Kinase (26-192) U/L Total Protein (6.4-8.2) gm/dl Albumin (3.4-5.0) gm/dl Globulin (2.5-4.0) gm/dl Albumin/Globulin Ratio (0.9-2) Lipase 169 (73-393) U/L Procalcitonin (0-0.5) ng/ml TSH (0.300-4.500) uIu/ml Free T4 (0.8-1.6) ng/dl Urine Color Urine Appearance (Clear) Urine pH (4.5-7.5) Ur Specific [place] (1.000-1.030) Urine Protein (Negative) Urine Glucose (UA) (Negative) Urine Ketones (Negative) Urine Blood (Negative) Urine Nitrite (Negative) Urine Bilirubin (Negative) Urine Urobilinogen (Negative) Ur Leukocyte Esterase (Negative) Urine WBC (Auto) (0-5) /hpf Urine RBC (Auto) (0-4) /hpf U Hyaline Cast (Auto) (0-5) /lpf U Epithel Cells (Auto) (0-5) /lpf Urine Bacteria (Auto) (Negative) Urine Test (Negative) Nasal Screen MRSA (PCR) (Negative) Salicylates (2.8-20) mg/dl Urine Opiates Screen (Neg) Ur Methadone, Qual (Neg) Acetaminophen (10-30) ug/ml Urine Barbiturates (Neg) Ur Phencyclidine (PCP) (Neg) U Amphetamin/Meth Scrn (Neg) Urine MDEA MDMA (Ecstasy) Screen (Neg) MDMA Urine MDMA U Benzodiazepines Scrn (Neg) Ur Cocaine Metabolite (Neg) U Marijuana (THC) Screen (Neg) Ethyl Alcohol mg/dL (0-3) mg/dl COVID-19 Eval Order SARS-CoV-2 (PCR) (Negative) Influenza Type A (PCR) (Neg) Influenza Type B (PCR) (Neg) RSV (RT-PCR) (Neg) Blood Type Antibody Screen 03/12/20 03/12/20 03/12/20 Range/Units 19:40 19:40 19:20 WBC (4.8-10.8) K/uL RBC (4.2-5.4) M/uL Hgb (12.0-16.0) g/dL Hct (37-47) % MCV (80-100) fL MCH (25-34) pg MCHC (32-36) g/dL RDW Std Deviation (36.4-46.3) fL RDW Coeff of Meme (11.5-14.5) % Plt Count (130-400) K/uL MPV (7.4-10.4) fL Immature Gran % (Auto) % Neut % (Auto) % Lymph % (Auto) % [place] % (Auto) % Eos % (Auto) % Baso % (Auto) % Neut # (Auto) (1.4-6.5) K/uL Lymph # (Auto) (1.2-3.4) K/uL [place] # (Auto) (0.11-0.59) K/uL Eos # (Auto) (0-0.5) K/uL Baso # (Auto) (0-0.2) K/uL Immature Gran # (Auto) (0.00-0.02) K/uL PT (9.0-12.0) Seconds INR (0.9-1.1) APTT (21.0-31.0) Seconds PTT Ratio Sample Site POC pH (7.35-7.45) POC pCO2 (35-46) mmHg POC pO2 (80-95) mmHg POC HCO3 (19-24) steph/L POC Total CO2 (24-31) mmol/L POC Base Excess (-9-1.8) steph/L POC ABG O2 Sat (90-95) % Bear Test VBG pH (7.36-7.41) VBG pCO2 (38-50) mmHg VBG pO2 mmHg VBG HCO3 mmol/L VBG O2 Saturation % VBG Base Excess mEq/L Barometric Pressure mm/Hg O2 Delivery Device POC O2 Rate Minute Ventilation POC FiO2 % Tidal Volume PEEP Sodium (136-145) mmol/L Potassium (3.5-5.1) mmol/L Chloride (98-107) mmol/L Carbon Dioxide (21-32) mmol/L Anion Gap (3-11) BUN (7-18) mg/dl Creatinine (0.6-1.2) mg/dl Est Cr Clr Drug Dosing Est GFR ( Amer) Est GFR (Non-Af Amer) BUN/Creatinine Ratio (10-20) Glucose (70-99) mg/dl POC Glucose 71 (70-99) mg/dl Lactate (0.4-2.0) mmol/L Calcium (8.5-10.1) mg/dl Ionized Calcium (1.12-1.32) mmol/L Phosphorus (2.5-4.9) mg/dl Magnesium (1.8-2.4) mg/dl Iron (35-150) mcg/dl Total Bilirubin (0.2-1) mg/dl Direct Bilirubin (0-0.2) mg/dl AST (15-37) U/L ALT (12-78) U/L Alkaline Phosphatase (45-117) U/L Ammonia (11-32) umol/L Total Creatine Kinase (26-192) U/L Total Protein (6.4-8.2) gm/dl Albumin (3.4-5.0) gm/dl Globulin (2.5-4.0) gm/dl Albumin/Globulin Ratio (0.9-2) Lipase (73-393) U/L Procalcitonin 0.06 (0-0.5) ng/ml TSH (0.300-4.500) uIu/ml Free T4 (0.8-1.6) ng/dl Urine Color Urine Appearance (Clear) Urine pH (4.5-7.5) Ur Specific [place] (1.000-1.030) Urine Protein (Negative) Urine Glucose (UA) (Negative) Urine Ketones (Negative) Urine Blood (Negative) Urine Nitrite (Negative) Urine Bilirubin (Negative) Urine Urobilinogen (Negative) Ur Leukocyte Esterase (Negative) Urine WBC (Auto) (0-5) /hpf Urine RBC (Auto) (0-4) /hpf U Hyaline Cast (Auto) (0-5) /lpf U Epithel Cells (Auto) (0-5) /lpf Urine Bacteria (Auto) (Negative) Urine Test (Negative) Nasal Screen MRSA (PCR) (Negative) Salicylates (2.8-20) mg/dl Urine Opiates Screen (Neg) Ur Methadone, Qual (Neg) Acetaminophen (10-30) ug/ml Urine Barbiturates (Neg) Ur Phencyclidine (PCP) (Neg) U Amphetamin/Meth Scrn (Neg) Urine MDEA MDMA (Ecstasy) Screen (Neg) MDMA Urine MDMA U Benzodiazepines Scrn (Neg) Ur Cocaine Metabolite (Neg) U Marijuana (THC) Screen (Neg) Ethyl Alcohol mg/dL 180.7 H (0-3) mg/dl COVID-19 Eval Order SARS-CoV-2 (PCR) (Negative) Influenza Type A (PCR) (Neg) Influenza Type B (PCR) (Neg) RSV (RT-PCR) (Neg) Blood Type Antibody Screen 03/12/20 03/12/20 03/12/20 Range/Units 19:11 19:11 19:11 WBC (4.8-10.8) K/uL RBC (4.2-5.4) M/uL Hgb (12.0-16.0) g/dL Hct (37-47) % MCV (80-100) fL MCH (25-34) pg MCHC (32-36) g/dL RDW Std Deviation (36.4-46.3) fL RDW Coeff of Meme (11.5-14.5) % Plt Count (130-400) K/uL MPV (7.4-10.4) fL Immature Gran % (Auto) % Neut % (Auto) % Lymph % (Auto) % [place] % (Auto) % Eos % (Auto) % Baso % (Auto) % Neut # (Auto) (1.4-6.5) K/uL Lymph # (Auto) (1.2-3.4) K/uL [place] # (Auto) (0.11-0.59) K/uL Eos # (Auto) (0-0.5) K/uL Baso # (Auto) (0-0.2) K/uL Immature Gran # (Auto) (0.00-0.02) K/uL PT (9.0-12.0) Seconds INR (0.9-1.1) APTT (21.0-31.0) Seconds PTT Ratio Sample Site POC pH (7.35-7.45) POC pCO2 (35-46) mmHg POC pO2 (80-95) mmHg POC HCO3 (19-24) steph/L POC Total CO2 (24-31) mmol/L POC Base Excess (-9-1.8) steph/L POC ABG O2 Sat (90-95) % Bear Test VBG pH (7.36-7.41) VBG pCO2 (38-50) mmHg VBG pO2 mmHg VBG HCO3 mmol/L VBG O2 Saturation % VBG Base Excess mEq/L Barometric Pressure mm/Hg O2 Delivery Device POC O2 Rate Minute Ventilation POC FiO2 % Tidal Volume PEEP Sodium (136-145) mmol/L Potassium (3.5-5.1) mmol/L Chloride (98-107) mmol/L Carbon Dioxide (21-32) mmol/L Anion Gap (3-11) BUN (7-18) mg/dl Creatinine (0.6-1.2) mg/dl Est Cr Clr Drug Dosing Est GFR ( Amer) Est GFR (Non-Af Amer) BUN/Creatinine Ratio (10-20) Glucose (70-99) mg/dl POC Glucose (70-99) mg/dl Lactate (0.4-2.0) mmol/L Calcium (8.5-10.1) mg/dl Ionized Calcium (1.12-1.32) mmol/L Phosphorus (2.5-4.9) mg/dl Magnesium (1.8-2.4) mg/dl Iron (35-150) mcg/dl Total Bilirubin (0.2-1) mg/dl Direct Bilirubin (0-0.2) mg/dl AST (15-37) U/L ALT (12-78) U/L Alkaline Phosphatase (45-117) U/L Ammonia (11-32) umol/L Total Creatine Kinase (26-192) U/L Total Protein (6.4-8.2) gm/dl Albumin (3.4-5.0) gm/dl Globulin (2.5-4.0) gm/dl Albumin/Globulin Ratio (0.9-2) Lipase (73-393) U/L Procalcitonin (0-0.5) ng/ml TSH (0.300-4.500) uIu/ml Free T4 (0.8-1.6) ng/dl Urine Color Yellow Urine Appearance Clear (Clear) Urine pH 5.0 (4.5-7.5) Ur Specific [place] 1.010 (1.000-1.030) Urine Protein Negative (Negative) Urine Glucose (UA) Negative (Negative) Urine Ketones Negative (Negative) Urine Blood 1+ H (Negative) Urine Nitrite Negative (Negative) Urine Bilirubin Negative (Negative) Urine Urobilinogen Negative (Negative) Ur Leukocyte Esterase 2+ H (Negative) Urine WBC (Auto) 5-10 H (0-5) /hpf Urine RBC (Auto) 0-4 (0-4) /hpf U Hyaline Cast (Auto) 1-5 (0-5) /lpf U Epithel Cells (Auto) >30 H (0-5) /lpf Urine Bacteria (Auto) 1+ H (Negative) Urine Test (Negative) Nasal Screen MRSA (PCR) (Negative) Salicylates (2.8-20) mg/dl Urine Opiates Screen Neg (Neg) Ur Methadone, Qual Neg (Neg) Acetaminophen (10-30) ug/ml Urine Barbiturates Neg (Neg) Ur Phencyclidine (PCP) Neg (Neg) U Amphetamin/Meth Scrn Neg (Neg) Urine MDEA Pending MDMA (Ecstasy) Screen Pos H (Neg) MDMA Pending Urine MDMA Pending U Benzodiazepines Scrn Neg (Neg) Ur Cocaine Metabolite Neg (Neg) U Marijuana (THC) Screen Neg (Neg) Ethyl Alcohol mg/dL (0-3) mg/dl COVID-19 Eval Order SARS-CoV-2 (PCR) (Negative) Influenza Type A (PCR) (Neg) Influenza Type B (PCR) (Neg) RSV (RT-PCR) (Neg) Blood Type Antibody Screen 03/12/20 03/12/20 03/12/20 Range/Units 18:55 18:55 18:55 WBC (4.8-10.8) K/uL RBC (4.2-5.4) M/uL Hgb (12.0-16.0) g/dL Hct (37-47) % MCV (80-100) fL MCH (25-34) pg MCHC (32-36) g/dL RDW Std Deviation (36.4-46.3) fL RDW Coeff of Meme (11.5-14.5) % Plt Count (130-400) K/uL MPV (7.4-10.4) fL Immature Gran % (Auto) % Neut % (Auto) % Lymph % (Auto) % [place] % (Auto) % Eos % (Auto) % Baso % (Auto) % Neut # (Auto) (1.4-6.5) K/uL Lymph # (Auto) (1.2-3.4) K/uL [place] # (Auto) (0.11-0.59) K/uL Eos # (Auto) (0-0.5) K/uL Baso # (Auto) (0-0.2) K/uL Immature Gran # (Auto) (0.00-0.02) K/uL PT (9.0-12.0) Seconds INR (0.9-1.1) APTT (21.0-31.0) Seconds PTT Ratio Sample Site POC pH (7.35-7.45) POC pCO2 (35-46) mmHg POC pO2 (80-95) mmHg POC HCO3 (19-24) steph/L POC Total CO2 (24-31) mmol/L POC Base Excess (-9-1.8) steph/L POC ABG O2 Sat (90-95) % Bear Test VBG pH 7.13 L (7.36-7.41) VBG pCO2 53 H (38-50) mmHg VBG pO2 43 mmHg VBG HCO3 17 mmol/L VBG O2 Saturation 63.4 % VBG Base Excess -11.8 mEq/L Barometric Pressure 732.6 mm/Hg O2 Delivery Device POC O2 Rate Minute Ventilation POC FiO2 % Tidal Volume PEEP Sodium (136-145) mmol/L Potassium (3.5-5.1) mmol/L Chloride (98-107) mmol/L Carbon Dioxide (21-32) mmol/L Anion Gap (3-11) BUN (7-18) mg/dl Creatinine (0.6-1.2) mg/dl Est Cr Clr Drug Dosing Est GFR ( Amer) Est GFR (Non-Af Amer) BUN/Creatinine Ratio (10-20) Glucose (70-99) mg/dl POC Glucose (70-99) mg/dl Lactate (0.4-2.0) mmol/L Calcium (8.5-10.1) mg/dl Ionized Calcium (1.12-1.32) mmol/L Phosphorus (2.5-4.9) mg/dl Magnesium (1.8-2.4) mg/dl Iron (35-150) mcg/dl Total Bilirubin (0.2-1) mg/dl Direct Bilirubin (0-0.2) mg/dl AST (15-37) U/L ALT (12-78) U/L Alkaline Phosphatase (45-117) U/L Ammonia (11-32) umol/L Total Creatine Kinase Cancelled (26-192) U/L Total Protein (6.4-8.2) gm/dl Albumin (3.4-5.0) gm/dl Globulin (2.5-4.0) gm/dl Albumin/Globulin Ratio (0.9-2) Lipase (73-393) U/L Procalcitonin (0-0.5) ng/ml TSH (0.300-4.500) uIu/ml Free T4 (0.8-1.6) ng/dl Urine Color Urine Appearance (Clear) Urine pH (4.5-7.5) Ur Specific [place] (1.000-1.030) Urine Protein (Negative) Urine Glucose (UA) (Negative) Urine Ketones (Negative) Urine Blood (Negative) Urine Nitrite (Negative) Urine Bilirubin (Negative) Urine Urobilinogen (Negative) Ur Leukocyte Esterase (Negative) Urine WBC (Auto) (0-5) /hpf Urine RBC (Auto) (0-4) /hpf U Hyaline Cast (Auto) (0-5) /lpf U Epithel Cells (Auto) (0-5) /lpf Urine Bacteria (Auto) (Negative) Urine Test (Negative) Nasal Screen MRSA (PCR) (Negative) Salicylates < 1.7 L (2.8-20) mg/dl Urine Opiates Screen (Neg) Ur Methadone, Qual (Neg) Acetaminophen < 2 L (10-30) ug/ml Urine Barbiturates (Neg) Ur Phencyclidine (PCP) (Neg) U Amphetamin/Meth Scrn (Neg) Urine MDEA MDMA (Ecstasy) Screen (Neg) MDMA Urine MDMA U Benzodiazepines Scrn (Neg) Ur Cocaine Metabolite (Neg) U Marijuana (THC) Screen (Neg) Ethyl Alcohol mg/dL (0-3) mg/dl COVID-19 Eval Order SARS-CoV-2 (PCR) (Negative) Influenza Type A (PCR) (Neg) Influenza Type B (PCR) (Neg) RSV (RT-PCR) (Neg) Blood Type Antibody Screen 03/12/20 03/12/20 03/12/20 Range/Units 18:55 18:55 18:55 WBC (4.8-10.8) K/uL RBC (4.2-5.4) M/uL Hgb (12.0-16.0) g/dL Hct (37-47) % MCV (80-100) fL MCH (25-34) pg MCHC (32-36) g/dL RDW Std Deviation (36.4-46.3) fL RDW Coeff of Meme (11.5-14.5) % Plt Count (130-400) K/uL MPV (7.4-10.4) fL Immature Gran % (Auto) % Neut % (Auto) % Lymph % (Auto) % [place] % (Auto) % Eos % (Auto) % Baso % (Auto) % Neut # (Auto) (1.4-6.5) K/uL Lymph # (Auto) (1.2-3.4) K/uL [place] # (Auto) (0.11-0.59) K/uL Eos # (Auto) (0-0.5) K/uL Baso # (Auto) (0-0.2) K/uL Immature Gran # (Auto) (0.00-0.02) K/uL PT 11.9 (9.0-12.0) Seconds INR 1.1 (0.9-1.1) APTT 27.9 (21.0-31.0) Seconds PTT Ratio 1.0 Sample Site POC pH (7.35-7.45) POC pCO2 (35-46) mmHg POC pO2 (80-95) mmHg POC HCO3 (19-24) steph/L POC Total CO2 (24-31) mmol/L POC Base Excess (-9-1.8) steph/L POC ABG O2 Sat (90-95) % Bear Test VBG pH (7.36-7.41) VBG pCO2 (38-50) mmHg VBG pO2 mmHg VBG HCO3 mmol/L VBG O2 Saturation % VBG Base Excess mEq/L Barometric Pressure mm/Hg O2 Delivery Device POC O2 Rate Minute Ventilation POC FiO2 % Tidal Volume PEEP Sodium 144 (136-145) mmol/L Potassium 3.3 L (3.5-5.1) mmol/L Chloride 111 H (98-107) mmol/L Carbon Dioxide 17 L (21-32) mmol/L Anion Gap 16.0 H (3-11) BUN 10 (7-18) mg/dl Creatinine 1.01 (0.6-1.2) mg/dl Est Cr Clr Drug Dosing Not Reportable Est GFR ( Amer) 85.3 Est GFR (Non-Af Amer) 73.6 BUN/Creatinine Ratio 9.8 L (10-20) Glucose 74 (70-99) mg/dl POC Glucose (70-99) mg/dl Lactate 8.0 H* (0.4-2.0) mmol/L Calcium 7.7 L (8.5-10.1) mg/dl Ionized Calcium (1.12-1.32) mmol/L Phosphorus (2.5-4.9) mg/dl Magnesium 2.0 (1.8-2.4) mg/dl Iron 215 H (35-150) mcg/dl Total Bilirubin 0.6 (0.2-1) mg/dl Direct Bilirubin (0-0.2) mg/dl AST 133 H (15-37) U/L ALT 62 (12-78) U/L Alkaline Phosphatase 232 H (45-117) U/L Ammonia (11-32) umol/L Total Creatine Kinase 97 (26-192) U/L Total Protein 6.5 (6.4-8.2) gm/dl Albumin 3.1 L (3.4-5.0) gm/dl Globulin 3.4 (2.5-4.0) gm/dl Albumin/Globulin Ratio 0.9 (0.9-2) Lipase (73-393) U/L Procalcitonin (0-0.5) ng/ml TSH 9.030 H (0.300-4.500) uIu/ml Free T4 0.67 L (0.8-1.6) ng/dl Urine Color Urine Appearance (Clear) Urine pH (4.5-7.5) Ur Specific [place] (1.000-1.030) Urine Protein (Negative) Urine Glucose (UA) (Negative) Urine Ketones (Negative) Urine Blood (Negative) Urine Nitrite (Negative) Urine Bilirubin (Negative) Urine Urobilinogen (Negative) Ur Leukocyte Esterase (Negative) Urine WBC (Auto) (0-5) /hpf Urine RBC (Auto) (0-4) /hpf U Hyaline Cast (Auto) (0-5) /lpf U Epithel Cells (Auto) (0-5) /lpf Urine Bacteria (Auto) (Negative) Urine Test (Negative) Nasal Screen MRSA (PCR) (Negative) Salicylates (2.8-20) mg/dl Urine Opiates Screen (Neg) Ur Methadone, Qual (Neg) Acetaminophen (10-30) ug/ml Urine Barbiturates (Neg) Ur Phencyclidine (PCP) (Neg) U Amphetamin/Meth Scrn (Neg) Urine MDEA MDMA (Ecstasy) Screen (Neg) MDMA Urine MDMA U Benzodiazepines Scrn (Neg) Ur Cocaine Metabolite (Neg) U Marijuana (THC) Screen (Neg) Ethyl Alcohol mg/dL (0-3) mg/dl COVID-19 Eval Order SARS-CoV-2 (PCR) (Negative) Influenza Type A (PCR) (Neg) Influenza Type B (PCR) (Neg) RSV (RT-PCR) (Neg) Blood Type Antibody Screen 03/12/20 Range/Units 18:55 WBC 8.52 (4.8-10.8) K/uL RBC 3.52 L (4.2-5.4) M/uL Hgb 11.4 L (12.0-16.0) g/dL Hct 32.7 L (37-47) % MCV 92.9 (80-100) fL MCH 32.4 (25-34) pg MCHC 34.9 (32-36) g/dL RDW Std Deviation 48.3 H (36.4-46.3) fL RDW Coeff of Meme 14.3 (11.5-14.5) % Plt Count 197 (130-400) K/uL MPV 9.0 (7.4-10.4) fL Immature Gran % (Auto) 0.1 % Neut % (Auto) 60.3 % Lymph % (Auto) 29.8 % [place] % (Auto) 9.7 % Eos % (Auto) 0.1 % Baso % (Auto) 0.0 % Neut # (Auto) 5.13 (1.4-6.5) K/uL Lymph # (Auto) 2.54 (1.2-3.4) K/uL [place] # (Auto) 0.83 H (0.11-0.59) K/uL Eos # (Auto) 0.01 (0-0.5) K/uL Baso # (Auto) 0.00 (0-0.2) K/uL Immature Gran # (Auto) 0.01 (0.00-0.02) K/uL PT (9.0-12.0) Seconds INR (0.9-1.1) APTT (21.0-31.0) Seconds PTT Ratio Sample Site POC pH (7.35-7.45) POC pCO2 (35-46) mmHg POC pO2 (80-95) mmHg POC HCO3 (19-24) steph/L POC Total CO2 (24-31) mmol/L POC Base Excess (-9-1.8) steph/L POC ABG O2 Sat (90-95) % Bear Test VBG pH (7.36-7.41) VBG pCO2 (38-50) mmHg VBG pO2 mmHg VBG HCO3 mmol/L VBG O2 Saturation % VBG Base Excess mEq/L Barometric Pressure mm/Hg O2 Delivery Device POC O2 Rate Minute Ventilation POC FiO2 % Tidal Volume PEEP Sodium (136-145) mmol/L Potassium (3.5-5.1) mmol/L Chloride (98-107) mmol/L Carbon Dioxide (21-32) mmol/L Anion Gap (3-11) BUN (7-18) mg/dl Creatinine (0.6-1.2) mg/dl Est Cr Clr Drug Dosing Est GFR ( Amer) Est GFR (Non-Af Amer) BUN/Creatinine Ratio (10-20) Glucose (70-99) mg/dl POC Glucose (70-99) mg/dl Lactate (0.4-2.0) mmol/L Calcium (8.5-10.1) mg/dl Ionized Calcium (1.12-1.32) mmol/L Phosphorus (2.5-4.9) mg/dl Magnesium (1.8-2.4) mg/dl Iron (35-150) mcg/dl Total Bilirubin (0.2-1) mg/dl Direct Bilirubin (0-0.2) mg/dl AST (15-37) U/L ALT (12-78) U/L Alkaline Phosphatase (45-117) U/L Ammonia (11-32) umol/L Total Creatine Kinase (26-192) U/L Total Protein (6.4-8.2) gm/dl Albumin (3.4-5.0) gm/dl Globulin (2.5-4.0) gm/dl Albumin/Globulin Ratio (0.9-2) Lipase (73-393) U/L Procalcitonin (0-0.5) ng/ml TSH (0.300-4.500) uIu/ml Free T4 (0.8-1.6) ng/dl Urine Color Urine Appearance (Clear) Urine pH (4.5-7.5) Ur Specific [place] (1.000-1.030) Urine Protein (Negative) Urine Glucose (UA) (Negative) Urine Ketones (Negative) Urine Blood (Negative) Urine Nitrite (Negative) Urine Bilirubin (Negative) Urine Urobilinogen (Negative) Ur Leukocyte Esterase (Negative) Urine WBC (Auto) (0-5) /hpf Urine RBC (Auto) (0-4) /hpf U Hyaline Cast (Auto) (0-5) /lpf U Epithel Cells (Auto) (0-5) /lpf Urine Bacteria (Auto) (Negative) Urine Test (Negative) Nasal Screen MRSA (PCR) (Negative) Salicylates (2.8-20) mg/dl Urine Opiates Screen (Neg) Ur Methadone, Qual (Neg) Acetaminophen (10-30) ug/ml Urine Barbiturates (Neg) Ur Phencyclidine (PCP) (Neg) U Amphetamin/Meth Scrn (Neg) Urine MDEA MDMA (Ecstasy) Screen (Neg) MDMA Urine MDMA U Benzodiazepines Scrn (Neg) Ur Cocaine Metabolite (Neg) U Marijuana (THC) Screen (Neg) Ethyl Alcohol mg/dL (0-3) mg/dl COVID-19 Eval Order SARS-CoV-2 (PCR) (Negative) Influenza Type A (PCR) (Neg) Influenza Type B (PCR) (Neg) RSV (RT-PCR) (Neg) Blood Type Antibody Screen ECG Additional Comments: I have reviewed the EKG dated March 13, 2020 at 00 56, awaiting repeat EKG of note noted prolonged QTC Coding Level of Care Code Critical Care 1st 30-74 mins Diagnoses Admitted to intensive care unit Z78.9 Polysubstance overdose T50.902A Encounter type: initial encounter Injury intent: intentional self-harm Hypothermia T68.XXXA Encounter type: initial encounter UTI (urinary tract infection) N39.0 Prolonged Q-T interval on ECG R94.31 Elevated lactic acid level R79.89 Transaminitis R74.01 Abnormal thyroid function test R94.6 Electrolyte abnormality E87.8 Increased anion gap metabolic acidosis E87.2 Alcoholism F10.20 Mood disorder F39 (1) Hypothermia Encounter type: initial encounter Qualified Code(s): T68.XXXA - Hypothermia, initial encounter (2) Polysubstance overdose Encounter type: initial encounter Injury intent: intentional self-harm Qualified Code(s): T50.902A - Poisoning by unspecified drugs, medicaments and biological substances, intentional self-harm, initial encounter
--- NOTE | 2020-03-13 07:53 | CT Scan Report ---
CT OF THE HEAD WITHOUT CONTRAST CLINICAL HISTORY: Altered mental status. COMPARISON STUDY: MRI of the brain December 21, 2019. Head CT December 22, 2019. CT DOSE: 601.98 mGy.cm TECHNIQUE: Helical axial images of the head were obtained without IV contrast. Automated exposure con trol was utilized for the study. A dose lowering technique was utilized adhering to the principles o f ALARA. FINDINGS: No acute intracranial hemorrhage, midline shift or mass effect is present. The ventricular system is unremarkable. The basal cisterns are patent. No extra-axial collections are present. There are no findings to suggest acute dural sinus thrombosis or acute territorial infarct. No significant calvarial abnormalities are present. Visualized portions of the sinuses and mastoid air cells are rick ar. A right posterior scalp sebaceous cyst is again noted. IMPRESSION: No acute intracranial findings. ACT 112: Negative or not required by law. Electronically signed by: Ronak Benavidez M.D. 03/13/2020 7:51 AM
--- NOTE | 2020-03-13 08:09 | XRay Report ---
XR chest 1V portable HISTORY: line placement COMPARISON: Chest 03/12/2020. FINDINGS: No pneumothorax. No pleural effusions. The cardiac silhouette remains mildly enlarged. Righ t jugular central venous catheter terminates in the right atrium. Endotracheal tube terminates approx imately 1.4 cm from the abigail. Nasogastric tube terminates in the stomach. The lungs are clear. IMPRESSION: 1. Satisfactory support line placement as described above. 2. Stable mild cardiomegaly. ACT 112: Negative or not required by law. Electronically signed by: Marcellus Ochoa M.D. 03/13/2020 8:08 AM
[2020-03-13 08:35] LABS: iSTAT Arterial Blood Gas HCO3 29 meg/L (19-24); iSTAT Arterial Blood Gas pCO2 33 mmHg (35-46); iSTAT Arterial Blood Gas pH 7.55 (7.35-7.45); iSTAT Arterial Blood Gas pO2 89 mmHg (80-95); iSTAT Carbon Dioxide 30 mmol/L (24-31); iSTAT FiO2 30 %; iSTAT Site Art Line
[2020-03-13] MEDS ORDERED: THIAMINE HCL 100 MG in SYRINGE 9 ML IV SCH (09:00)
[2020-03-13] MEDS ORDERED: FAMOTIDINE 20 MG in SYRINGE 3 ML IV SCH (09:00)
[2020-03-13] MEDS ORDERED: LEVOTHYROXINE SODIUM 25 MCG in SYRINGE 0 ML IV SCH (09:00)
--- NOTE | 2020-03-13 09:48 | Electrocardiogram Report ---
Test Reason : Blood Pressure : / mmHG Vent. Rate : 107 BPM Atrial Rate : 107 BPM P-R Int : 152 ms QRS Dur : 120 ms QT Int : 408 ms P-R-T Axes : -02 074 035 degrees QTc Int : 544 ms Sinus tachycardia RSR' or QR pattern in V1 suggests right ventricular conduction delay Borderline ECG When compared with ECG of 22-DEC-2019 19:53, QRS duration has increased T wave inversion no longer evident in Anterior leads QT has lengthened Confirmed by Pepe Seth ([id number]) on 03/13/2020 9:48:14 AM Referred By: REFERRED SELF Confirmed By:Pepe Seth
--- NOTE | 2020-03-13 09:49 | Electrocardiogram Report ---
Test Reason : Blood Pressure : / mmHG Vent. Rate : 115 BPM Atrial Rate : 115 BPM P-R Int : 152 ms QRS Dur : 116 ms QT Int : 376 ms P-R-T Axes : 000 077 012 degrees QTc Int : 520 ms Sinus tachycardia RSR' or QR pattern in V1 suggests right ventricular conduction delay Cannot rule out Inferior infarct , age undetermined Prolonged QT Abnormal ECG When compared with ECG of 12-MAR-2020 19:04, (unconfirmed) No significant change was found Confirmed by Pepe Seth ([id number]) on 03/13/2020 9:48:55 AM Referred By: REFERRED SELF Confirmed By:Pepe Seth
[2020-03-13] MEDS ORDERED: POTASSIUM CHLORIDE CRTAB 20 MEQ TABCR PO SCH (09:55)
[2020-03-13] MEDS ORDERED: POTASSIUM CHLORIDE CRTAB 20 MEQ TABCR PO STA (09:55)
--- NOTE | 2020-03-13 09:55 | Electrocardiogram Report ---
Test Reason : Blood Pressure : / mmHG Vent. Rate : 132 BPM Atrial Rate : 068 BPM P-R Int : 000 ms QRS Dur : 108 ms QT Int : 390 ms P-R-T Axes : 000 074 014 degrees QTc Int : 577 ms Supraventricular tachycardia Nonspecific ST and T wave abnormality Abnormal ECG When compared with ECG of 12-MAR-2020 20:41, (unconfirmed) Nonspecific T wave abnormality now evident in Anterolateral leads Confirmed by Pepe Seth ([id number]) on 03/13/2020 9:55:16 AM Referred By: REFERRED SELF Confirmed By:Pepe Seth
[2020-03-13] MEDS ORDERED: CEFEPIME 2,000 MG in SYRINGE 0 ML IV SCH (10:00)
--- NOTE | 2020-03-13 10:42 | Hospitalist Progress Note ---
Date of Service March 13, 2020 Assessment & Plan (1) Encephalopathy: Status post intubation at the ER Multifactorial : Polysubstance overdose secondary to suicidality (Bupropion, NSAID, gabapentin, hold levothyroxine prescription) Recurrent alcohol withdrawal seizures (threshold lowered by home Bupropion) Septic shock ? Recurrent UTI -- s/p Extubation 03/13/19 still on Levophed drip -- electrolytes stable -- cultures pending on Dapto -- further management per [employer] service AGMA secondary to illness -- HCO3 drip discontinued mood disorder, suboptimal -- Psych consulted history opioid abuse as per records chronic anemia, hemoglobin better than baseline likely secondary to hemoconcentration -- Hg 11 --> 9 Anemia panel chronic thrombocytopenia -- stable hypothyroidism, persistent TSH elevation from last admission, not currently on medications (inactive Levothyroxine prescription found on review of outpatient records) DVT prophylaxis with SCDs Re: Thrombocytopenia Full code Admission and Anticipated Discharge Date Admission Date: March 12, 2020 Subjective ff up for multiple drug overdose, encephalopathy, etc s/p extubation this morning still on low dose levophed seen with RN at bedside through whole encounter awake, alert, but confused, not oriented does not follow commands speaks in phrases occasionally no signs of pain, shortness of breath no other symptoms Review of Systems Review of Systems: All systems reviewed & are unremarkable except as noted in Subjective Physical Exam Physical Exam: General- oriented x 0, not in distress, speaks in phrases with no effort or accessory muscle use Head- atraumatic Eyes- PERRL, EOMI, anicteric ENT- oropharynx clear Neck- supple, no JVD, no adenopathy, no thyromegaly; carotids +2/2, no bruits appreciated Lungs- clear to auscultation bilaterally, no rales/wheezes Heart- normal rate, regular rhythm; no murmur, no gallop, no rub appreciated Abdomen- normal bowel sounds, nondistended, soft, nontender, no masses or hepa tosplenomegaly Extremities- no pretibial edema, no calf tenderness; peripheral pulses intact Neuro- alert, oriented x 0; CN 2-12 grossly intact; motor 5/5 bilaterally; no other gross focal neurologic deficits Skin- warm & dry Results & Data Results & Data ([facility]) Vital Signs (Past 12 Hours) Vital Signs Temp Pulse Pulse Pulse Resp BP BP 03/13/20 08:27 107 H 24 03/13/20 06:30 37.9 C H 108 H 24 96/61 L 03/13/20 06:00 38.0 C H 112 H 24 106/63 03/13/20 05:30 38.2 C H 117 H 24 105/59 L 03/13/20 05:00 38.2 C H 120 H 24 103/64 03/13/20 04:59 112 H 24 03/13/20 04:30 38.3 C H 123 H 24 103/60 03/13/20 04:00 38.3 C H 127 H 24 90/65 L 03/13/20 03:30 38.3 C H 127 H 24 99/66 L 03/13/20 03:00 38.0 C H 128 H 24 97/68 L 03/13/20 02:30 37.9 C H 127 H 24 116/78 03/13/20 02:00 37.8 C H 127 H 24 103/66 03/13/20 01:58 128 H 25 H 03/13/20 01:30 134 H 24 102/63 03/13/20 01:00 131 H 24 109/66 03/13/20 00:30 130 H 24 98/64 L 03/13/20 00:00 37.2 C 132 H 24 107/61 03/12/20 23:30 134 H 24 102/61 03/12/20 23:20 24 03/12/20 23:17 36.5 C 144 H 20 95/57 L 03/12/20 23:00 912 H 24 98/61 L 03/12/20 22:50 145 H 20 03/12/20 22:45 128 H 24 85/44 L Pulse Ox 03/13/20 08:27 99 03/13/20 06:30 98 03/13/20 06:00 96 03/13/20 05:30 97 03/13/20 05:00 97 03/13/20 04:59 97 03/13/20 04:30 97 03/13/20 04:00 97 03/13/20 03:30 98 03/13/20 03:00 99 03/13/20 02:30 100 03/13/20 02:00 98 03/13/20 01:58 97 03/13/20 01:30 96 01/04/21 01:00 94 03/13/20 00:30 95 03/13/20 00:00 94 03/12/20 23:30 93 03/12/20 23:20 03/12/20 23:17 94 03/12/20 23:00 96 03/12/20 22:50 98 03/12/20 22:45 93 Laboratory Results Laboratory Results - last 24 hr 03/12/20 03/12/20 03/12/20 18:55 19:11 19:11 WBC RBC Hgb Hct MCV MCH MCHC RDW Std Deviation RDW Coeff of Meme Plt Count MPV Immature Gran % (Auto) Neut % (Auto) Lymph % (Auto) [place] % (Auto) Eos % (Auto) Baso % (Auto) Neut # (Auto) Lymph # (Auto) [place] # (Auto) Eos # (Auto) Baso # (Auto) Immature Gran # (Auto) PT INR APTT PTT Ratio Sample Site POC pH POC pCO2 POC pO2 POC HCO3 POC Total CO2 POC Base Excess POC ABG O2 Sat Bear Test VBG pH VBG pCO2 VBG pO2 VBG HCO3 VBG O2 Saturation VBG Base Excess Barometric Pressure O2 Delivery Device POC O2 Rate Minute Ventilation POC FiO2 Tidal Volume PEEP Sodium Potassium Chloride Carbon Dioxide Anion Gap BUN Creatinine Est Cr Clr Drug Dosing Est GFR ( Amer) Est GFR (Non-Af Amer) BUN/Creatinine Ratio Glucose POC Glucose Lactate Calcium Ionized Calcium Phosphorus Magnesium Iron 215 H Total Bilirubin Direct Bilirubin AST ALT Alkaline Phosphatase Ammonia Total Creatine Kinase 97 Total Protein Albumin Globulin Albumin/Globulin Ratio Lipase Procalcitonin TSH Urine Test Nasal Screen MRSA (PCR) Urine Opiates Screen Neg Ur Methadone, Qual Neg Urine Barbiturates Neg Ur Phencyclidine (PCP) Neg U Amphetamin/Meth Scrn Neg Urine MDEA Pending MDMA (Ecstasy) Screen Pos H MDMA Pending Urine MDMA Pending U Benzodiazepines Scrn Neg Ur Cocaine Metabolite Neg U Marijuana (THC) Screen Neg Ethyl Alcohol mg/dL COVID-19 Eval Order SARS-CoV-2 (PCR) HCV RNA Qual (TMA) Influenza Type A (PCR) Influenza Type B (PCR) RSV (RT-PCR) Bld Cult Staph aureus PCR Blood Culture MRSA PCR Blood Type Antibody Screen 03/12/20 03/12/20 03/12/20 19:40 19:40 19:40 WBC RBC Hgb Hct MCV MCH MCHC RDW Std Deviation RDW Coeff of Meme Plt Count MPV Immature Gran % (Auto) Neut % (Auto) Lymph % (Auto) [place] % (Auto) Eos % (Auto) Baso % (Auto) Neut # (Auto) Lymph # (Auto) [place] # (Auto) Eos # (Auto) Baso # (Auto) Immature Gran # (Auto) PT INR APTT PTT Ratio Sample Site POC pH POC pCO2 POC pO2 POC HCO3 POC Total CO2 POC Base Excess POC ABG O2 Sat Bear Test VBG pH VBG pCO2 VBG pO2 VBG HCO3 VBG O2 Saturation VBG Base Excess Barometric Pressure O2 Delivery Device POC O2 Rate Minute Ventilation POC FiO2 Tidal Volume PEEP Sodium Potassium Chloride Carbon Dioxide Anion Gap BUN Creatinine Est Cr Clr Drug Dosing Est GFR ( Amer) Est GFR (Non-Af Amer) BUN/Creatinine Ratio Glucose POC Glucose Lactate Calcium Ionized Calcium Phosphorus Magnesium Iron Total Bilirubin Direct Bilirubin AST ALT Alkaline Phosphatase Ammonia Total Creatine Kinase Total Protein Albumin Globulin Albumin/Globulin Ratio Lipase 169 Procalcitonin 0.06 TSH Urine Test Nasal Screen MRSA (PCR) Urine Opiates Screen Ur Methadone, Qual Urine Barbiturates Ur Phencyclidine (PCP) U Amphetamin/Meth Scrn Urine MDEA MDMA (Ecstasy) Screen MDMA Urine MDMA U Benzodiazepines Scrn Ur Cocaine Metabolite U Marijuana (THC) Screen Ethyl Alcohol mg/dL 180.7 H COVID-19 Eval Order SARS-CoV-2 (PCR) HCV RNA Qual (TMA) Influenza Type A (PCR) Influenza Type B (PCR) RSV (RT-PCR) Bld Cult Staph aureus PCR Blood Culture MRSA PCR Blood Type Antibody Screen 03/12/20 03/12/20 03/12/20 20:42 20:47 21:17 WBC RBC Hgb Hct MCV MCH MCHC RDW Std Deviation RDW Coeff of Meme Plt Count MPV Immature Gran % (Auto) Neut % (Auto) Lymph % (Auto) [place] % (Auto) Eos % (Auto) Baso % (Auto) Neut # (Auto) Lymph # (Auto) [place] # (Auto) Eos # (Auto) Baso # (Auto) Immature Gran # (Auto) PT INR APTT PTT Ratio Sample Site POC pH POC pCO2 POC pO2 POC HCO3 POC Total CO2 POC Base Excess POC ABG O2 Sat Bear Test VBG pH 7.25 L VBG pCO2 50 VBG pO2 71 VBG HCO3 22 VBG O2 Saturation 89.3 VBG Base Excess -5.5 Barometric Pressure 733.1 O2 Delivery Device POC O2 Rate Minute Ventilation POC FiO2 Tidal Volume PEEP Sodium Potassium Chloride Carbon Dioxide Anion Gap BUN Creatinine Est Cr Clr Drug Dosing Est GFR ( Amer) Est GFR (Non-Af Amer) BUN/Creatinine Ratio Glucose POC Glucose Lactate 2.8 H* Calcium Ionized Calcium Phosphorus Magnesium Iron Total Bilirubin Direct Bilirubin AST ALT Alkaline Phosphatase Ammonia Total Creatine Kinase Total Protein Albumin Globulin Albumin/Globulin Ratio Lipase Procalcitonin TSH Urine Test Nasal Screen MRSA (PCR) Urine Opiates Screen Ur Methadone, Qual Urine Barbiturates Ur Phencyclidine (PCP) U Amphetamin/Meth Scrn Urine MDEA MDMA (Ecstasy) Screen MDMA Urine MDMA U Benzodiazepines Scrn Ur Cocaine Metabolite U Marijuana (THC) Screen Ethyl Alcohol mg/dL COVID-19 Eval Order [facility]Rsv at [facility] SARS-CoV-2 (PCR) HCV RNA Qual (TMA) Influenza Type A (PCR) Influenza Type B (PCR) RSV (RT-PCR) Bld Cult Staph aureus PCR Blood Culture MRSA PCR Blood Type Antibody Screen 03/12/20 03/12/20 03/12/20 21:17 21:56 23:20 WBC RBC Hgb Hct MCV MCH MCHC RDW Std Deviation RDW Coeff of Meme Plt Count MPV Immature Gran % (Auto) Neut % (Auto) Lymph % (Auto) [place] % (Auto) Eos % (Auto) Baso % (Auto) Neut # (Auto) Lymph # (Auto) [place] # (Auto) Eos # (Auto) Baso # (Auto) Immature Gran # (Auto) PT INR APTT PTT Ratio Sample Site Art Line POC pH 7.30 L POC pCO2 46 POC pO2 80 POC HCO3 23 POC Total CO2 24 POC Base Excess -4.0 POC ABG O2 Sat 94.0 Bear Test NA VBG pH VBG pCO2 VBG pO2 VBG HCO3 VBG O2 Saturation VBG Base Excess Barometric Pressure O2 Delivery Device Ventilator POC O2 Rate 20 Minute Ventilation 7.3 POC FiO2 30 Tidal Volume 370 PEEP 5 Sodium Potassium Chloride Carbon Dioxide Anion Gap BUN Creatinine Est Cr Clr Drug Dosing Est GFR ( Amer) Est GFR (Non-Af Amer) BUN/Creatinine Ratio Glucose POC Glucose 221 H Lactate Calcium Ionized Calcium Phosphorus Magnesium Iron Total Bilirubin Direct Bilirubin AST ALT Alkaline Phosphatase Ammonia Total Creatine Kinase Total Protein Albumin Globulin Albumin/Globulin Ratio Lipase Procalcitonin TSH Urine Test Nasal Screen MRSA (PCR) Urine Opiates Screen Ur Methadone, Qual Urine Barbiturates Ur Phencyclidine (PCP) U Amphetamin/Meth Scrn Urine MDEA MDMA (Ecstasy) Screen MDMA Urine MDMA U Benzodiazepines Scrn Ur Cocaine Metabolite U Marijuana (THC) Screen Ethyl Alcohol mg/dL COVID-19 Eval Order SARS-CoV-2 (PCR) NEGATIVE HCV RNA Qual (TMA) Influenza Type A (PCR) Negative Influenza Type B (PCR) Negative RSV (RT-PCR) Negative Bld Cult Staph aureus PCR Blood Culture MRSA PCR Blood Type Antibody Screen 03/12/20 03/12/20 03/12/20 23:30 23:43 23:43 WBC RBC Hgb Hct MCV MCH MCHC RDW Std Deviation RDW Coeff of Meme Plt Count MPV Immature Gran % (Auto) Neut % (Auto) Lymph % (Auto) [place] % (Auto) Eos % (Auto) Baso % (Auto) Neut # (Auto) Lymph # (Auto) [place] # (Auto) Eos # (Auto) Baso # (Auto) Immature Gran # (Auto) PT INR APTT PTT Ratio Sample Site POC pH POC pCO2 POC pO2 POC HCO3 POC Total CO2 POC Base Excess POC ABG O2 Sat Bear Test VBG pH VBG pCO2 VBG pO2 VBG HCO3 VBG O2 Saturation VBG Base Excess Barometric Pressure O2 Delivery Device POC O2 Rate Minute Ventilation POC FiO2 Tidal Volume PEEP Sodium 143 Potassium 3.1 L Chloride 108 H Carbon Dioxide 26 Anion Gap 9.0 BUN 9 Creatinine 0.69 D Est Cr Clr Drug Dosing 120.6 Est GFR ( Amer) 133.5 Est GFR (Non-Af Amer) 115.2 BUN/Creatinine Ratio 13.4 Glucose 196 H POC Glucose Lactate Calcium 6.8 L Ionized Calcium 0.95 L Phosphorus 1.9 L Magnesium 2.6 H Iron 170 H Total Bilirubin Direct Bilirubin AST ALT 118 H Alkaline Phosphatase Ammonia Total Creatine Kinase Total Protein Albumin Globulin Albumin/Globulin Ratio Lipase Procalcitonin TSH Urine Test Nasal Screen MRSA (PCR) Negative Urine Opiates Screen Ur Methadone, Qual Urine Barbiturates Ur Phencyclidine (PCP) U Amphetamin/Meth Scrn Urine MDEA MDMA (Ecstasy) Screen MDMA Urine MDMA U Benzodiazepines Scrn Ur Cocaine Metabolite U Marijuana (THC) Screen Ethyl Alcohol mg/dL COVID-19 Eval Order SARS-CoV-2 (PCR) HCV RNA Qual (TMA) Influenza Type A (PCR) Influenza Type B (PCR) RSV (RT-PCR) Bld Cult Staph aureus PCR Blood Culture MRSA PCR Blood Type Antibody Screen 03/12/20 03/12/20 03/12/20 23:43 23:43 23:43 WBC RBC Hgb Hct MCV MCH MCHC RDW Std Deviation RDW Coeff of Meme Plt Count MPV Immature Gran % (Auto) Neut % (Auto) Lymph % (Auto) [place] % (Auto) Eos % (Auto) Baso % (Auto) Neut # (Auto) Lymph # (Auto) [place] # (Auto) Eos # (Auto) Baso # (Auto) Immature Gran # (Auto) PT INR APTT PTT Ratio Sample Site POC pH POC pCO2 POC pO2 POC HCO3 POC Total CO2 POC Base Excess POC ABG O2 Sat Bear Test VBG pH VBG pCO2 VBG pO2 VBG HCO3 VBG O2 Saturation VBG Base Excess Barometric Pressure O2 Delivery Device POC O2 Rate Minute Ventilation POC FiO2 Tidal Volume PEEP Sodium Potassium Chloride Carbon Dioxide Anion Gap BUN Creatinine Est Cr Clr Drug Dosing Est GFR ( Amer) Est GFR (Non-Af Amer) BUN/Creatinine Ratio Glucose POC Glucose Lactate 1.6 Calcium Ionized Calcium Phosphorus Magnesium Iron Total Bilirubin Direct Bilirubin AST ALT Alkaline Phosphatase Ammonia 30.4 Total Creatine Kinase Total Protein Albumin Globulin Albumin/Globulin Ratio Lipase Procalcitonin TSH Urine Test Nasal Screen MRSA (PCR) Urine Opiates Screen Ur Methadone, Qual Urine Barbiturates Ur Phencyclidine (PCP) U Amphetamin/Meth Scrn Urine MDEA MDMA (Ecstasy) Screen MDMA Urine MDMA U Benzodiazepines Scrn Ur Cocaine Metabolite U Marijuana (THC) Screen Ethyl Alcohol mg/dL 36.0 H COVID-19 Eval Order SARS-CoV-2 (PCR) HCV RNA Qual (TMA) Influenza Type A (PCR) Influenza Type B (PCR) RSV (RT-PCR) Bld Cult Staph aureus PCR Blood Culture MRSA PCR Blood Type Antibody Screen 03/12/20 03/12/20 03/13/20 23:50 23:50 00:15 WBC RBC Hgb Hct MCV MCH MCHC RDW Std Deviation RDW Coeff of Meme Plt Count MPV Immature Gran % (Auto) Neut % (Auto) Lymph % (Auto) [place] % (Auto) Eos % (Auto) Baso % (Auto) Neut # (Auto) Lymph # (Auto) [place] # (Auto) Eos # (Auto) Baso # (Auto) Immature Gran # (Auto) PT INR APTT PTT Ratio Sample Site POC pH POC pCO2 POC pO2 POC HCO3 POC Total CO2 POC Base Excess POC ABG O2 Sat Bear Test VBG pH VBG pCO2 VBG pO2 VBG HCO3 VBG O2 Saturation VBG Base Excess Barometric Pressure O2 Delivery Device POC O2 Rate Minute Ventilation POC FiO2 Tidal Volume PEEP Sodium Potassium Chloride Carbon Dioxide Anion Gap BUN Creatinine Est Cr Clr Drug Dosing Est GFR ( Amer) Est GFR (Non-Af Amer) BUN/Creatinine Ratio Glucose POC Glucose 207 H Lactate Calcium Ionized Calcium Phosphorus Magnesium Iron Total Bilirubin Direct Bilirubin AST ALT Alkaline Phosphatase Ammonia Total Creatine Kinase Total Protein Albumin Globulin Albumin/Globulin Ratio Lipase Procalcitonin TSH Urine Test Negative Nasal Screen MRSA (PCR) Urine Opiates Screen Ur Methadone, Qual Urine Barbiturates Ur Phencyclidine (PCP) U Amphetamin/Meth Scrn Urine MDEA MDMA (Ecstasy) Screen MDMA Urine MDMA U Benzodiazepines Scrn Ur Cocaine Metabolite U Marijuana (THC) Screen Ethyl Alcohol mg/dL COVID-19 Eval Order SARS-CoV-2 (PCR) HCV RNA Qual (TMA) Influenza Type A (PCR) Influenza Type B (PCR) RSV (RT-PCR) Bld Cult Staph aureus PCR Blood Culture MRSA PCR Blood Type O Negative Antibody Screen NEGATIVE 03/13/20 03/13/20 03/13/20 03:52 05:07 05:07 WBC 8.85 RBC 2.90 L Hgb 9.1 L Hct 26.8 L MCV 92.4 MCH 31.4 MCHC 34.0 RDW Std Deviation 47.3 H RDW Coeff of Meme 14.2 Plt Count 151 MPV 9.0 Immature Gran % (Auto) 0.2 Neut % (Auto) 70.8 Lymph % (Auto) 17.7 [place] % (Auto) 11.2 Eos % (Auto) 0.1 Baso % (Auto) 0.0 Neut # (Auto) 6.26 Lymph # (Auto) 1.57 [place] # (Auto) 0.99 H Eos # (Auto) 0.01 Baso # (Auto) 0.00 Immature Gran # (Auto) 0.02 PT INR APTT PTT Ratio Sample Site Art Line POC pH 7.50 H POC pCO2 39 POC pO2 76 L POC HCO3 30 H POC Total CO2 31 POC Base Excess 7.0 H POC ABG O2 Sat 96.0 H Bear Test NA VBG pH VBG pCO2 VBG pO2 VBG HCO3 VBG O2 Saturation VBG Base Excess Barometric Pressure O2 Delivery Device Ventilator POC O2 Rate 24 Minute Ventilation 8.7 POC FiO2 30 Tidal Volume 370 PEEP 5 Sodium 142 Potassium 3.3 L Chloride 107 Carbon Dioxide 32 Anion Gap 3.0 BUN 8 Creatinine 0.73 Est Cr Clr Drug Dosing 114.0 Est GFR ( Amer) 126.3 Est GFR (Non-Af Amer) 109.0 BUN/Creatinine Ratio 10.9 Glucose 60 L POC Glucose Lactate Calcium 7.6 L Ionized Calcium Phosphorus Magnesium Iron Total Bilirubin 1.1 H D Direct Bilirubin 0.3 H AST 200 H ALT 99 H Alkaline Phosphatase 224 H Ammonia Total Creatine Kinase Total Protein 5.3 L Albumin 2.5 L Globulin 2.8 Albumin/Globulin Ratio 0.9 Lipase Procalcitonin TSH 3.800 Urine Test Nasal Screen MRSA (PCR) Urine Opiates Screen Ur Methadone, Qual Urine Barbiturates Ur Phencyclidine (PCP) U Amphetamin/Meth Scrn Urine MDEA MDMA (Ecstasy) Screen MDMA Urine MDMA U Benzodiazepines Scrn Ur Cocaine Metabolite U Marijuana (THC) Screen Ethyl Alcohol mg/dL COVID-19 Eval Order SARS-CoV-2 (PCR) HCV RNA Qual (TMA) Influenza Type A (PCR) Influenza Type B (PCR) RSV (RT-PCR) Bld Cult Staph aureus PCR Blood Culture MRSA PCR Blood Type Antibody Screen 03/13/20 03/13/20 03/13/20 05:07 05:07 05:07 WBC RBC Hgb Hct MCV MCH MCHC RDW Std Deviation RDW Coeff of Meme Plt Count MPV Immature Gran % (Auto) Neut % (Auto) Lymph % (Auto) [place] % (Auto) Eos % (Auto) Baso % (Auto) Neut # (Auto) Lymph # (Auto) [place] # (Auto) Eos # (Auto) Baso # (Auto) Immature Gran # (Auto) PT 12.0 INR 1.1 APTT 25.5 PTT Ratio 0.9 Sample Site POC pH POC pCO2 POC pO2 POC HCO3 POC Total CO2 POC Base Excess POC ABG O2 Sat Bear Test VBG pH VBG pCO2 VBG pO2 VBG HCO3 VBG O2 Saturation VBG Base Excess Barometric Pressure O2 Delivery Device POC O2 Rate Minute Ventilation POC FiO2 Tidal Volume PEEP Sodium Potassium Chloride Carbon Dioxide Anion Gap BUN Creatinine Est Cr Clr Drug Dosing Est GFR ( Amer) Est GFR (Non-Af Amer) BUN/Creatinine Ratio Glucose POC Glucose Lactate Calcium Ionized Calcium Phosphorus Magnesium Iron 160 H Total Bilirubin Direct Bilirubin AST ALT Alkaline Phosphatase Ammonia Total Creatine Kinase Total Protein Albumin Globulin Albumin/Globulin Ratio Lipase Procalcitonin TSH Urine Test Nasal Screen MRSA (PCR) Urine Opiates Screen Ur Methadone, Qual Urine Barbiturates Ur Phencyclidine (PCP) U Amphetamin/Meth Scrn Urine MDEA MDMA (Ecstasy) Screen MDMA Urine MDMA U Benzodiazepines Scrn Ur Cocaine Metabolite U Marijuana (THC) Screen Ethyl Alcohol mg/dL COVID-19 Eval Order SARS-CoV-2 (PCR) HCV RNA Qual (TMA) Pending Influenza Type A (PCR) Influenza Type B (PCR) RSV (RT-PCR) Bld Cult Staph aureus PCR Blood Culture MRSA PCR Blood Type Antibody Screen 03/13/20 03/13/20 03/13/20 06:41 08:21 10:06 WBC RBC Hgb Hct MCV MCH MCHC RDW Std Deviation RDW Coeff of Meme Plt Count MPV Immature Gran % (Auto) Neut % (Auto) Lymph % (Auto) [place] % (Auto) Eos % (Auto) Baso % (Auto) Neut # (Auto) Lymph # (Auto) [place] # (Auto) Eos # (Auto) Baso # (Auto) Immature Gran # (Auto) PT INR APTT PTT Ratio Sample Site Art Line POC pH 7.55 H* POC pCO2 33 L POC pO2 89 POC HCO3 29 H POC Total CO2 30 POC Base Excess 6.0 H POC ABG O2 Sat 98.0 H Bear Test NA VBG pH VBG pCO2 VBG pO2 VBG HCO3 VBG O2 Saturation VBG Base Excess Barometric Pressure O2 Delivery Device Ventilator POC O2 Rate 24 Minute Ventilation POC FiO2 30 Tidal Volume 370 PEEP 5 Sodium Potassium Chloride Carbon Dioxide Anion Gap BUN Creatinine Est Cr Clr Drug Dosing Est GFR ( Amer) Est GFR (Non-Af Amer) BUN/Creatinine Ratio Glucose POC Glucose 71 87 Lactate Calcium Ionized Calcium Phosphorus Magnesium Iron Total Bilirubin Direct Bilirubin AST ALT Alkaline Phosphatase Ammonia Total Creatine Kinase Total Protein Albumin Globulin Albumin/Globulin Ratio Lipase Procalcitonin TSH Urine Test Nasal Screen MRSA (PCR) Urine Opiates Screen Ur Methadone, Qual Urine Barbiturates Ur Phencyclidine (PCP) U Amphetamin/Meth Scrn Urine MDEA MDMA (Ecstasy) Screen MDMA Urine MDMA U Benzodiazepines Scrn Ur Cocaine Metabolite U Marijuana (THC) Screen Ethyl Alcohol mg/dL COVID-19 Eval Order SARS-CoV-2 (PCR) HCV RNA Qual (TMA) Influenza Type A (PCR) Influenza Type B (PCR) RSV (RT-PCR) Bld Cult Staph aureus PCR Blood Culture MRSA PCR Blood Type Antibody Screen 03/13/20 03/13/20 03/13/20 11:51 18:12 20:42 WBC RBC Hgb Hct MCV MCH MCHC RDW Std Deviation RDW Coeff of Meme Plt Count MPV Immature Gran % (Auto) Neut % (Auto) Lymph % (Auto) [place] % (Auto) Eos % (Auto) Baso % (Auto) Neut # (Auto) Lymph # (Auto) [place] # (Auto) Eos # (Auto) Baso # (Auto) Immature Gran # (Auto) PT INR APTT PTT Ratio Sample Site POC pH POC pCO2 POC pO2 POC HCO3 POC Total CO2 POC Base Excess POC ABG O2 Sat Bear Test VBG pH VBG pCO2 VBG pO2 VBG HCO3 VBG O2 Saturation VBG Base Excess Barometric Pressure O2 Delivery Device POC O2 Rate Minute Ventilation POC FiO2 Tidal Volume PEEP Sodium Potassium Chloride Carbon Dioxide Anion Gap BUN Creatinine Est Cr Clr Drug Dosing Est GFR ( Amer) Est GFR (Non-Af Amer) BUN/Creatinine Ratio Glucose POC Glucose 74 76 Lactate Calcium Ionized Calcium Phosphorus Magnesium Iron Total Bilirubin Direct Bilirubin AST ALT Alkaline Phosphatase Ammonia Total Creatine Kinase Total Protein Albumin Globulin Albumin/Globulin Ratio Lipase Procalcitonin TSH Urine Test Nasal Screen MRSA (PCR) Urine Opiates Screen Ur Methadone, Qual Urine Barbiturates Ur Phencyclidine (PCP) U Amphetamin/Meth Scrn Urine MDEA MDMA (Ecstasy) Screen MDMA Urine MDMA U Benzodiazepines Scrn Ur Cocaine Metabolite U Marijuana (THC) Screen Ethyl Alcohol mg/dL COVID-19 Eval Order SARS-CoV-2 (PCR) HCV RNA Qual (TMA) Influenza Type A (PCR) Influenza Type B (PCR) RSV (RT-PCR) Bld Cult Staph aureus PCR Negative Blood Culture MRSA PCR Negative Blood Type Antibody Screen
[2020-03-13] MEDS ORDERED: DAPTOmycin 100 MG in SYRINGE 0 ML IV SCH (11:00)
--- NOTE | 2020-03-13 11:15 | Communication Note ---
Date of Service: March 13, 2020 received psych consult. Patient remains intubated s/p polysubstance OD (Wellbutrin, Effexor, ETOH, Ibuprofen, etc). Neuro consulted. Hx of withdrawal seizures from ETOH, seizure ?Wellbutrin related noted in field. Qtc 522 and tachy. Patient is on a 302 warrant. Will complete psych consult when more responsive. Continue to hold psych meds and should not restart Wellbutrin. ETOH withdrawal/DT risk high, last consult 12/27 was drinking 1/5th of Vodka a day. She should not be allowed to leave the hospital AMA. 302 will need completed when medically cleared.
[2020-03-13] MEDS: LORazepam 1 MG/2 ML VIAL IV PRN (12:17)
[2020-03-13] MEDS: SULFA/TRIMETH 80/16MG/ML 160 MG in DEXTROSE 5% 250 ML IV SCH (12:19)
[2020-03-13] MEDS: MULTIVITAMIN TAB PO SCH (12:19)
--- NOTE | 2020-03-13 14:35 | Electrocardiogram Report ---
Test Reason : Blood Pressure : / mmHG Vent. Rate : 112 BPM Atrial Rate : 112 BPM P-R Int : 184 ms QRS Dur : 106 ms QT Int : 358 ms P-R-T Axes : 006 067 030 degrees QTc Int : 488 ms Sinus tachycardia Otherwise normal ECG When compared with ECG of 13-MAR-2020 05:39, No significant change was found Confirmed by Pepe Seth ([id number]) on 03/13/2020 2:34:46 PM Referred By: REFERRED SELF Confirmed By:Pepe Seth
--- NOTE | 2020-03-13 15:05 | Neurology Consultation ---
Date of Consultation March 13, 2020 Assessment & Plan (1) Encephalopathy: 1. MRI brain with and without- may need to wait til she is more cooperative 2. EEG- pending read 3. supportive care and psychiatry involved 4. thiamine - would continue Present on Admission?: Yes (2) Alcohol withdrawal seizure: 1. EtOH withdrawal protocol to avoid withdrawal psychosis 2. EEG pending read 3. over dose list includes EtOH, wellbutrin Effexor, ibuprofen, ferrous sulfate, and levothyroxine were found at the scene. 4. psychiatry involved for treatment input 5. needs rehab as outpatient 6. no AEDS at this point unless EEG has positive findings. (3) Gram-positive cocci bacteremia: 1. treat to culture 2. TTE ? for any vegation? history of IV drug use Supervising Physician Co-Signing Physician Notes I have seen and discussed above patient with Dr Roseann Bates, neurology. Pt seen and examined. Pt is sleepy, but arousabe, oriented x 2, Pupils dilated. pt tremulous, picking at clothing. MOves all four symmetreically. EEG no sz focus. Impression, sz,x 2 in setting of drug overdose in part associwellbutrinrec EETOH withdrawal protocol , MRI when able, no ongoing need for anticonfulsants. Do not resumeme Wellburtrin. Will follow with you History of Present Illness Reason for Consultation: recurrent seizures Requesting Physician: Elijah Encarnacion MD Attending Physician: Elijah Encarnacion MD History of Present Illness Ana is a 34 year old female with PMH -EtOH abuse, IV drug abuse, psychiatric history, intentional drug overdose, GPC bacteremia, seizure from alcohol withdrawal, acute pancreatitis. She was found down at home with multiple scattered empty pill bottles and a suicide note. She had a witnessed seizure when police arrived and again in route and was given 2.5 mg Versed in route. She was intubated in the ED. There were reportedly empty medicine bottles including Wellbutrin, Effexor, ibuprofen, ferrous sulfate, and levothyroxine were found at the scene. She was also noted to be positive for EtOH and MDMA on lab work. She had a significant metabolic acidosis and anion gap and was started on bicarb drip. She was hypotensive and tachycardic and started on Levophed drip. QRS and QTc were prolonged on EKG and she was given magnesium t ransfusion. She was then admitted to the ICU. Currently she is extubated and her central line is being removed. She is still very restless and not following commands. Allergies Allergy/AdvReac Type Severity Reaction Status Date / Time Penicillins Allergy Intermediate HIVES Verified 12/19/19 13:53 Patient History Medical History Alcohol withdrawal seizure Alcoholism Alcoholism Ascites Drug overdose Elevated lactic acid level Gram-positive cocci bacteremia Headache Hypokalemia Hypomagnesemia Hypomagnesemia Motrin overdose No significant active problems Prolonged Q-T interval on ECG Sepsis Severe acute pancreatitis Tobacco use Transaminitis UTI (urinary tract infection) Weakness Surgical History S/P appendectomy S/P ERCP Social History Smoking Status: Current every day smoker Tobacco Cessation Education Requested by Patient: No (Unable to answer) Hx Alcohol Use: Yes Alcohol type: hard liquor Hx Substance Use: No Preferred Language: Italian Communication Ability: Impaired Dozer Operator Required: No Beliefs That Will Affect Care: None marital status: Single Current Living Situation: Other Current Living Situation Comment: Friend Other Information That Helps Us Care for You: No Feels Safe at Home: Yes Assistive Devices: Oxygen - Continuous Review of Systems Review of Systems: All systems reviewed & are unremarkable except as noted in HPI & below and All systems reviewed & are unremarkable except as noted in Subjective Physical Exam Physical Exam: Physical Exam: Constitutional: appearance ill appearing restless Ears, Nose, Mouth and Throat: mucous membranes moist, no injection and skin normal, eyes normal Cardiovascular: normal S-1 and S-2 and regular rate and rhythm Respiratory: course breath sounds Musculoskeletal: no peripheral edema and good distal pulses Skin: erythema and bruising and some superficial scratches Eyes: extraocular muscles intact (EOMI) and pupils equal, dilated bilaterally good vessel pulsation NEUROLOGIC EXAMINATION: Mental status: Alert and restless, yes no responses only Oriented to person Speech yes no only will not answer orientation questions Cranial Nerves no facial asymmetry Reflexes: Deep tendon reflexes were symmetrical and graded 2/5. down going toes Sensory: intact to cool touch Coordination: does not cooperate with commands but is moving all ext Gait/Stance: Posture lying on back Motor: no muscle atrophy Strength: Normal appears normal strength Results & Data ([facility]) Vital Signs (Past 12 Hours) Vital Signs Temp Pulse Resp BP Pulse Ox 03/13/20 08:27 107 H 24 99 03/13/20 08:00 107 H 03/13/20 06:30 37.9 C H 108 H 24 96/61 L 98 03/13/20 06:00 38.0 C H 112 H 24 106/63 96 03/13/20 05:30 38.2 C H 117 H 24 105/59 L 97 03/13/20 05:00 38.2 C H 120 H 24 103/64 97 03/13/20 04:59 112 H 24 97 03/13/20 04:30 38.3 C H 123 H 24 103/60 97 03/13/20 04:00 38.3 C H 127 H 24 90/65 L 97 03/13/20 03:30 38.3 C H 127 H 24 99/66 L 98 Laboratory Results Abnormal lab results 03/12/20 03/12/20 03/12/20 Range/Units 18:55 18:55 18:55 RBC 3.52 L (4.2-5.4) M/uL Hgb 11.4 L (12.0-16.0) g/dL Hct 32.7 L (37-47) % RDW Std Deviation 48.3 H (36.4-46.3) fL [place] # (Auto) 0.83 H (0.11-0.59) K/uL POC pH (7.35-7.45) POC pCO2 (35-46) mmHg POC pO2 (80-95) mmHg POC HCO3 (19-24) steph/L POC Base Excess (-9-1.8) steph/L POC ABG O2 Sat (90-95) % VBG pH (7.36-7.41) VBG pCO2 (38-50) mmHg Potassium 3.3 L (3.5-5.1) mmol/L Chloride 111 H (98-107) mmol/L Carbon Dioxide 17 L (21-32) mmol/L Anion Gap 16.0 H (3-11) BUN/Creatinine Ratio 9.8 L (10-20) Glucose (70-99) mg/dl POC Glucose (70-99) mg/dl Lactate 8.0 H* (0.4-2.0) mmol/L Calcium 7.7 L (8.5-10.1) mg/dl Ionized Calcium (1.12-1.32) mmol/L Phosphorus (2.5-4.9) mg/dl Magnesium (1.8-2.4) mg/dl Iron 215 H (35-150) mcg/dl Total Bilirubin (0.2-1) mg/dl Direct Bilirubin (0-0.2) mg/dl AST 133 H (15-37) U/L ALT (12-78) U/L Alkaline Phosphatase 232 H (45-117) U/L Total Protein (6.4-8.2) gm/dl Albumin 3.1 L (3.4-5.0) gm/dl TSH 9.030 H (0.300-4.500) uIu/ml Free T4 0.67 L (0.8-1.6) ng/dl Urine Blood (Negative) Ur Leukocyte Esterase (Negative) Urine WBC (Auto) (0-5) /hpf U Epithel Cells (Auto) (0-5) /lpf Urine Bacteria (Auto) (Negative) Salicylates (2.8-20) mg/dl Acetaminophen (10-30) ug/ml MDMA ([facility]) Screen (Neg) Ethyl Alcohol mg/dL (0-3) mg/dl 03/12/20 03/12/20 03/12/20 Range/Units 18:55 18:55 19:11 RBC (4.2-5.4) M/uL Hgb (12.0-16.0) g/dL Hct (37-47) % RDW Std Deviation (36.4-46.3) fL [place] # (Auto) (0.11-0.59) K/uL POC pH (7.35-7.45) POC pCO2 (35-46) mmHg POC pO2 (80-95) mmHg POC HCO3 (19-24) steph/L POC Base Excess (-9-1.8) steph/L POC ABG O2 Sat (90-95) % VBG pH 7.13 L (7.36-7.41) VBG pCO2 53 H (38-50) mmHg Potassium (3.5-5.1) mmol/L Chloride (98-107) mmol/L Carbon Dioxide (21-32) mmol/L Anion Gap (3-11) BUN/Creatinine Ratio (10-20) Glucose (70-99) mg/dl POC Glucose (70-99) mg/dl Lactate (0.4-2.0) mmol/L Calcium (8.5-10.1) mg/dl Ionized Calcium (1.12-1.32) mmol/L Phosphorus (2.5-4.9) mg/dl Magnesium (1.8-2.4) mg/dl Iron (35-150) mcg/dl Total Bilirubin (0.2-1) mg/dl Direct Bilirubin (0-0.2) mg/dl AST (15-37) U/L ALT (12-78) U/L Alkaline Phosphatase (45-117) U/L Total Protein (6.4-8.2) gm/dl Albumin (3.4-5.0) gm/dl TSH (0.300-4.500) uIu/ml Free T4 (0.8-1.6) ng/dl Urine Blood 1+ H (Negative) Ur Leukocyte Esterase 2+ H (Negative) Urine WBC (Auto) 5-10 H (0-5) /hpf U Epithel Cells (Auto) >30 H (0-5) /lpf Urine Bacteria (Auto) 1+ H (Negative) Salicylates < 1.7 L (2.8-20) mg/dl Acetaminophen < 2 L (10-30) ug/ml MDMA ([facility]) Screen (Neg) Ethyl Alcohol mg/dL (0-3) mg/dl 03/12/20 03/12/20 03/12/20 Range/Units 19:11 19:40 20:42 RBC (4.2-5.4) M/uL Hgb (12.0-16.0) g/dL Hct (37-47) % RDW Std Deviation (36.4-46.3) fL [place] # (Auto) (0.11-0.59) K/uL POC pH (7.35-7.45) POC pCO2 (35-46) mmHg POC pO2 (80-95) mmHg POC HCO3 (19-24) steph/L POC Base Excess (-9-1.8) steph/L POC ABG O2 Sat (90-95) % VBG pH 7.25 L (7.36-7.41) VBG pCO2 (38-50) mmHg Potassium (3.5-5.1) mmol/L Chloride (98-107) mmol/L Carbon Dioxide (21-32) mmol/L Anion Gap (3-11) BUN/Creatinine Ratio (10-20) Glucose (70-99) mg/dl POC Glucose (70-99) mg/dl Lactate (0.4-2.0) mmol/L Calcium (8.5-10.1) mg/dl Ionized Calcium (1.12-1.32) mmol/L Phosphorus (2.5-4.9) mg/dl Magnesium (1.8-2.4) mg/dl Iron (35-150) mcg/dl Total Bilirubin (0.2-1) mg/dl Direct Bilirubin (0-0.2) mg/dl AST (15-37) U/L ALT (12-78) U/L Alkaline Phosphatase (45-117) U/L Total Protein (6.4-8.2) gm/dl Albumin (3.4-5.0) gm/dl TSH (0.300-4.500) uIu/ml Free T4 (0.8-1.6) ng/dl Urine Blood (Negative) Ur Leukocyte Esterase (Negative) Urine WBC (Auto) (0-5) /hpf U Epithel Cells (Auto) (0-5) /lpf Urine Bacteria (Auto) (Negative) Salicylates (2.8-20) mg/dl Acetaminophen (10-30) ug/ml MDMA ([facility]) Screen Pos H (Neg) Ethyl Alcohol mg/dL 180.7 H (0-3) mg/dl 03/12/20 03/12/20 03/12/20 Range/Units 20:47 21:56 23:20 RBC (4.2-5.4) M/uL Hgb (12.0-16.0) g/dL Hct (37-47) % RDW Std Deviation (36.4-46.3) fL [place] # (Auto) (0.11-0.59) K/uL POC pH 7.30 L (7.35-7.45) POC pCO2 (35-46) mmHg POC pO2 (80-95) mmHg POC HCO3 (19-24) steph/L POC Base Excess (-9-1.8) steph/L POC ABG O2 Sat (90-95) % VBG pH (7.36-7.41) VBG pCO2 (38-50) mmHg Potassium (3.5-5.1) mmol/L Chloride (98-107) mmol/L Carbon Dioxide (21-32) mmol/L Anion Gap (3-11) BUN/Creatinine Ratio (10-20) Glucose (70-99) mg/dl POC Glucose 221 H (70-99) mg/dl Lactate 2.8 H* (0.4-2.0) mmol/L Calcium (8.5-10.1) mg/dl Ionized Calcium (1.12-1.32) mmol/L Phosphorus (2.5-4.9) mg/dl Magnesium (1.8-2.4) mg/dl Iron (35-150) mcg/dl Total Bilirubin (0.2-1) mg/dl Direct Bilirubin (0-0.2) mg/dl AST (15-37) U/L ALT (12-78) U/L Alkaline Phosphatase (45-117) U/L Total Protein (6.4-8.2) gm/dl Albumin (3.4-5.0) gm/dl TSH (0.300-4.500) uIu/ml Free T4 (0.8-1.6) ng/dl Urine Blood (Negative) Ur Leukocyte Esterase (Negative) Urine WBC (Auto) (0-5) /hpf U Epithel Cells (Auto) (0-5) /lpf Urine Bacteria (Auto) (Negative) Salicylates (2.8-20) mg/dl Acetaminophen (10-30) ug/ml MDMA ([facility]) Screen (Neg) Ethyl Alcohol mg/dL (0-3) mg/dl 03/12/20 03/12/20 03/12/20 Range/Units 23:43 23:43 23:43 RBC (4.2-5.4) M/uL Hgb (12.0-16.0) g/dL Hct (37-47) % RDW Std Deviation (36.4-46.3) fL [place] # (Auto) (0.11-0.59) K/uL POC pH (7.35-7.45) POC pCO2 (35-46) mmHg POC pO2 (80-95) mmHg POC HCO3 (19-24) steph/L POC Base Excess (-9-1.8) steph/L POC ABG O2 Sat (90-95) % VBG pH (7.36-7.41) VBG pCO2 (38-50) mmHg Potassium 3.1 L (3.5-5.1) mmol/L Chloride 108 H (98-107) mmol/L Carbon Dioxide (21-32) mmol/L Anion Gap (3-11) BUN/Creatinine Ratio (10-20) Glucose 196 H (70-99) mg/dl POC Glucose (70-99) mg/dl Lactate (0.4-2.0) mmol/L Calcium 6.8 L (8.5-10.1) mg/dl Ionized Calcium 0.95 L (1.12-1.32) mmol/L Phosphorus 1.9 L (2.5-4.9) mg/dl Magnesium 2.6 H (1.8-2.4) mg/dl Iron 170 H (35-150) mcg/dl Total Bilirubin (0.2-1) mg/dl Direct Bilirubin (0-0.2) mg/dl AST (15-37) U/L ALT 118 H (12-78) U/L Alkaline Phosphatase (45-117) U/L Total Protein (6.4-8.2) gm/dl Albumin (3.4-5.0) gm/dl TSH (0.300-4.500) uIu/ml Free T4 (0.8-1.6) ng/dl Urine Blood (Negative) Ur Leukocyte Esterase (Negative) Urine WBC (Auto) (0-5) /hpf U Epithel Cells (Auto) (0-5) /lpf Urine Bacteria (Auto) (Negative) Salicylates (2.8-20) mg/dl Acetaminophen (10-30) ug/ml MDMA ([facility]) Screen (Neg) Ethyl Alcohol mg/dL 36.0 H (0-3) mg/dl 03/12/20 03/13/20 03/13/20 Range/Units 23:50 03:52 05:07 RBC 2.90 L (4.2-5.4) M/uL Hgb 9.1 L (12.0-16.0) g/dL Hct 26.8 L (37-47) % RDW Std Deviation 47.3 H (36.4-46.3) fL [place] # (Auto) 0.99 H (0.11-0.59) K/uL POC pH 7.50 H (7.35-7.45) POC pCO2 (35-46) mmHg POC pO2 76 L (80-95) mmHg POC HCO3 30 H (19-24) steph/L POC Base Excess 7.0 H (-9-1.8) steph/L POC ABG O2 Sat 96.0 H (90-95) % VBG pH (7.36-7.41) VBG pCO2 (38-50) mmHg Potassium (3.5-5.1) mmol/L Chloride (98-107) mmol/L Carbon Dioxide (21-32) mmol/L Anion Gap (3-11) BUN/Creatinine Ratio (10-20) Glucose (70-99) mg/dl POC Glucose 207 H (70-99) mg/dl Lactate (0.4-2.0) mmol/L Calcium (8.5-10.1) mg/dl Ionized Calcium (1.12-1.32) mmol/L Phosphorus (2.5-4.9) mg/dl Magnesium (1.8-2.4) mg/dl Iron (35-150) mcg/dl Total Bilirubin (0.2-1) mg/dl Direct Bilirubin (0-0.2) mg/dl AST (15-37) U/L ALT (12-78) U/L Alkaline Phosphatase (45-117) U/L Total Protein (6.4-8.2) gm/dl Albumin (3.4-5.0) gm/dl TSH (0.300-4.500) uIu/ml Free T4 (0.8-1.6) ng/dl Urine Blood (Negative) Ur Leukocyte Esterase (Negative) Urine WBC (Auto) (0-5) /hpf U Epithel Cells (Auto) (0-5) /lpf Urine Bacteria (Auto) (Negative) Salicylates (2.8-20) mg/dl Acetaminophen (10-30) ug/ml MDMA ([facility]) Screen (Neg) Ethyl Alcohol mg/dL (0-3) mg/dl 0103/13/20 03/13/20 Range/Units 05:07 05:07 08:21 RBC (4.2-5.4) M/uL Hgb (12.0-16.0) g/dL Hct (37-47) % RDW Std Deviation (36.4-46.3) fL [place] # (Auto) (0.11-0.59) K/uL POC pH 7.55 H* (7.35-7.45) POC pCO2 33 L (35-46) mmHg POC pO2 (80-95) mmHg POC HCO3 29 H (19-24) steph/L POC Base Excess 6.0 H (-9-1.8) steph/L POC ABG O2 Sat 98.0 H (90-95) % VBG pH (7.36-7.41) VBG pCO2 (38-50) mmHg Potassium 3.3 L (3.5-5.1) mmol/L Chloride (98-107) mmol/L Carbon Dioxide (21-32) mmol/L Anion Gap (3-11) BUN/Creatinine Ratio (10-20) Glucose 60 L (70-99) mg/dl POC Glucose (70-99) mg/dl Lactate (0.4-2.0) mmol/L Calcium 7.6 L (8.5-10.1) mg/dl Ionized Calcium (1.12-1.32) mmol/L Phosphorus (2.5-4.9) mg/dl Magnesium (1.8-2.4) mg/dl Iron 160 H (35-150) mcg/dl Total Bilirubin 1.1 H D (0.2-1) mg/dl Direct Bilirubin 0.3 H (0-0.2) mg/dl AST 200 H (15-37) U/L ALT 99 H (12-78) U/L Alkaline Phosphatase 224 H (45-117) U/L Total Protein 5.3 L (6.4-8.2) gm/dl Albumin 2.5 L (3.4-5.0) gm/dl TSH (0.300-4.500) uIu/ml Free T4 (0.8-1.6) ng/dl Urine Blood (Negative) Ur Leukocyte Esterase (Negative) Urine WBC (Auto) (0-5) /hpf U Epithel Cells (Auto) (0-5) /lpf Urine Bacteria (Auto) (Negative) Salicylates (2.8-20) mg/dl Acetaminophen (10-30) ug/ml MDMA ([facility]) Screen (Neg) Ethyl Alcohol mg/dL (0-3) mg/dl Diagnostic Findings CT head- no acute findings
[2020-03-13] MEDS ORDERED: Nursing to Pharmacy Communication SCH (17:15)
[2020-03-13] MEDS ORDERED: LORazepam 3 MG/6 ML VIAL IV PRN (17:18)
[2020-03-13] MEDS ORDERED: ATIVAN IV ALCOHOL WITHDRAWL IV PRN (17:18)
[2020-03-13] MEDS: LORazepam 2 MG/4 ML VIAL IV PRN ×2 (17:43→18:50)
--- NOTE | 2020-03-13 17:46 | Electroencephalogram ---
EEG Procedure Note Date of Service March 13, 2020 Start / End Times Start Time: 07:37 End Time: 07:57 Referring Physician Juan Miguel Velasquez History A 34 year old woman intubated s/p polypharmacy overdose. She has a history of EtOH withdrawal seizures. EEG performed for evaluation of epileptiform activity. Inpatient Medication List Norepinephrine Bitartrate (Levophed/D5w) 8 mg in 508 mls @ 12.611 mls/hr IV .Q24H [facility]; Protocol Stop: 04/11/20 20:29 Last Titration: 03/13/20 12:40 Dose: 0 mcg/kg/min, 0 mls/hr Documented by: [id number] Titration: 03/13/20 07:04 Dose: 0.07 mcg/kg/min, 17.7 mls/hr Documented by: [id number] Cosigned by: [id number] Titration: 03/13/20 02:30 Dose: 0.07 mcg/kg/min, 17.7 mls/hr Documented by: [id number] Titration: 03/12/20 22:08 Dose: 0.09 mcg/kg/min, 22.7 mls/hr Documented by: [id number] Titration: 03/12/20 21:35 Dose: 0.07 mcg/kg/min, 17.7 mls/hr Documented by: [id number] Admin: 03/12/20 20:26 Dose: 0.05 mcg/kg/min, 12.6 mls/hr Documented by: [id number] Cosigned by: [id number] Acetaminophen (Ofirmev) 1,000 mg in 100 mls @ 200 mls/hr IV Q8H PRN; Protocol PRN Reason: fever/pain Stop: 03/15/20 21:30 Last Infusion: 03/13/20 04:15 Dose: 0 mls/hr Documented by: [id number] Admin: 03/13/20 03:40 Dose: 200 mls/hr Documented by: [id number] Lorazepam (Ativan) 1 mg in 2 mls @ 0.5 mls/min IV Q10M PRN PRN Reason: seizures Stop: 04/11/20 23:16 Last Admin: 03/13/20 12:17 Dose: 0.5 mls/min Documented by: [id number] Thiamine HCl 100 mg/ Syringe 10 mls @ 2 mls/min IV QAM [facility] Stop: 04/12/20 08:59 Last Admin: 03/13/20 12:20 Dose: 2 mls/min Documented by: [id number] Trimethoprim/Sulfamethoxazole (160 mg/ Dextrose) 260 mls @ 260 mls/hr IV Q12H [facility] Stop: 03/20/20 00:59 Last Infusion: 03/13/20 14:31 Dose: 0 mls/hr Documented by: [id number] Admin: 03/13/20 12:19 Dose: 260 mls/hr Documented by: [id number] Multivitamins (Multivitamin Tab) [facility] [place] Stop: 04/12/20 08:59 Last Admin: 03/13/20 12:19 Dose: 1 tab Documented by: [id number] Discontinued Medications Dextrose (Dextrose 50% 50 Ml Syringe) 50 ml IV NOW ONE Stop: 03/12/20 19:22 Last Admin: 03/12/20 19:25 Dose: 50 ml Documented by: [id number] Sodium Chloride (Nss 1000ml) 1,000 mls @ 999 mls/hr IV .Q172 [address] Stop: 03/12/20 19:56 Last Infusion: 03/12/20 20:08 Dose: 0 mls/hr Documented by: [id number] Admin: 03/12/20 19:07 Dose: 999 mls/hr Documented by: [id number] Sodium Chloride (Nss 1000ml) 1,000 mls @ 999 mls/hr IV .Q172 [address] Stop: 03/12/20 20:55 Last Infusion: 03/12/20 21:09 Dose: 0 mls/hr Documented by: [id number] Admin: 03/12/20 20:08 Dose: 999 mls/hr Documented by: [id number] Sodium Chloride (Nss 1000ml) 1,000 mls @ 999 mls/hr IV .[address] Stop: 03/12/20 20:00 Last Infusion: 03/12/20 20:22 Dose: 0 mls/hr Documented by: [id number] Admin: 03/12/20 19:21 Dose: 999 mls/hr Documented by: [id number] Infusion: 03/12/20 19:21 Dose: 999 mls/hr Documented by: [id number] Admin: 03/12/20 19:07 Dose: 999 mls/hr Documented by: [id number] Magnesium Sulfate/Dextrose (Magnesium Sulfate / D5w) 1 gm in 100 mls @ 600 mls/hr IV Q10M [facility] Stop: 03/12/20 19:35 Last Infusion: 03/12/20 19:58 Dose: 0 mls/hr Documented by: [id number] Admin: 03/12/20 19:47 Dose: 600 mls/hr Documented by: [id number] Infusion: 03/12/20 19:32 Dose: 0 mls/hr Documented by: [id number] Admin: 03/12/20 19:21 Dose: 600 mls/hr Documented by: [id number] Sodium Bicarbonate 150 meq/ (Dextrose) 1,150 mls @ 250 mls/hr IV .Q4H36M [facility] Stop: 03/13/20 00:20 Last Infusion: 03/13/20 00:29 Dose: 0 mls/hr Documented by: [id number] Admin: 03/12/20 19:36 Dose: 250 mls/hr Documented by: [id number] Thiamine HCl 100 mg/ Syringe 10 mls @ 2 mls/min IV NOW STA Stop: 03/12/20 21:03 Last Admin: 03/12/20 21:35 Dose: 2 mls/min Documented by: [id number] Cefepime HCl (Maxipime) 2,000 mg in 20 mls @ 5 mls/min IV NOW STA; Protocol Stop: 03/12/20 20:57 Last Admin: 03/12/20 21:46 Dose: 5 mls/min Documented by: [id number] Vancomycin HCl 1,250 mg/ (Sodium Chloride) 525 mls @ 200 mls/hr IV NOW ONE Stop: 03/12/20 23:31 Last Admin: 03/12/20 21:46 Dose: Not Given Documented by: [id number] Propofol (Diprivan) 1,000 mg in 100 mls @ 19.86 mls/hr IV .Q5H3M [facility]; Protocol Stop: 03/15/20 22:59 Last Titration: 03/13/20 12:40 Dose: 0 mcg/kg/min, 0 mls/hr Documented by: [id number] Titration: 03/13/20 07:04 Dose: 50 mcg/kg/min, 19.9 mls/hr Documented by: [id number] Cosigned by: [id number] Admin: 03/13/20 03:58 Dose: 50 mcg/kg/min, 19.9 mls/hr Documented by: [id number] Cosigned by: [id number] Titration: 03/13/20 03:58 Dose: 50 mcg/kg/min, 19.9 mls/hr Documented by: [id number] Cosigned by: [id number] Titration: 03/13/20 02:00 Dose: 50 mcg/kg/min, 19.9 mls/hr Documented by: [id number] Titration: 03/13/20 01:00 Dose: 40 mcg/kg/min, 15.9 mls/hr Documented by: [id number] Titration: 03/13/20 00:00 Dose: 30 mcg/kg/min, 11.9 mls/hr Documented by: [id number] Admin: 03/12/20 23:19 Dose: 20 mcg/kg/min, 7.9 mls/hr Documented by: [id number] Cosigned by: [id number] Famotidine 20 mg/ Syringe 5 mls @ 2.5 mls/min IV BID [facility] Stop: 04/12/20 08:59 Last Admin: 03/13/20 12:41 Dose: Not Given Documented by: [id number] Potassium Chloride (K Collins / Wtr) 10 meq in 100 mls @ 100 mls/hr IV Q1H [facility] Stop: 03/13/20 01:16 Last Admin: 03/13/20 01:18 Dose: Not Given Documented by: [id number] Admin: 03/13/20 01:18 Dose: Not Given Documented by: [id number] Daptomycin 250 mg/ Syringe 5 mls @ 2.5 mls/min IV Q24H [facility]; Protocol Stop: 03/22/20 23:44 Last Admin: 03/13/20 00:12 Dose: 2.5 mls/min Documented by: [id number] Sodium Bicarbonate 150 meq/ (Dextrose) 1,150 mls @ 200 mls/hr IV .Q5H45M [facility] Stop: 04/12/20 00:14 Last Infusion: 03/13/20 06:23 Dose: 0 mls/hr Documented by: [id number] Admin: 03/13/20 00:24 Dose: 200 mls/hr Documented by: [id number] Lorazepam (Ativan) 2 mg in 4 mls @ 4 mls/min IV NOW STA Stop: 03/13/20 00:33 Last Admin: 03/13/20 00:49 Dose: 4 mls/min Documented by: [id number] Calcium Chloride 1,000 mg/ (Sodium Chloride) 60 mls @ 240 mls/hr IV NOW STA Stop: 03/13/20 00:57 Last Infusion: 03/13/20 01:25 Dose: 0 mls/hr Documented by: [id number] Admin: 03/13/20 01:10 Dose: 240 mls/hr Documented by: [id number] Potassium Chloride (K Collins / Wtr) 20 meq in 100 mls @ 50 mls/hr IV ONE ONE Stop: 03/13/20 02:42 Last Infusion: 03/13/20 03:10 Dose: 0 mls/hr Documented by: [id number] Admin: 03/13/20 01:11 Dose: 50 mls/hr Documented by: [id number] Potassium Phosphate 21 mmol/ (Sodium Chloride) 507 mls @ 180 mls/hr IV ONE ONE Stop: 03/13/20 05:48 Last Infusion: 03/13/20 06:22 Dose: 0 mls/hr Documented by: [id number] Admin: 03/13/20 03:09 Dose: 180 mls/hr Documented by: [id number] Midazolam HCl (Versed) 125 mg in 250 mls @ 10 mls/hr IV .Q25H [facility]; Protocol Stop: 04/12/20 03:44 Last Titration: 03/13/20 08:30 Dose: 0 mg/hr, 0 mls/hr Documented by: [id number] Cosigned by: [id number] Titration: 03/13/20 07:04 Dose: 5 mg/hr, 10 mls/hr Documented by: [id number] Cosigned by: [id number] Titration: 03/13/20 05:00 Dose: 5 mg/hr, 10 mls/hr Documented by: [id number] Cosigned by: [id number] Titration: 03/13/20 04:45 Dose: 4 mg/hr, 8 mls/hr Documented by: [id number] Cosigned by: [id number] Titration: 03/13/20 04:30 Dose: 3 mg/hr, 6 mls/hr Documented by: [id number] Cosigned by: [id number] Titration: 03/13/20 04:15 Dose: 2 mg/hr, 4 mls/hr Documented by: [id number] Cosigned by: [id number] Admin: 03/13/20 03:58 Dose: 1 mg/hr, 2 mls/hr Documented by: [id number] Cosigned by: [id number] Sodium Bicarbonate 75 meq/ (Sodium Chloride) 1,075 mls @ 200 mls/hr IV .Q5H23M [facility] Stop: 04/12/20 04:14 Last Admin: 03/13/20 12:41 Dose: Not Given Documented by: [id number] Infusion: 03/13/20 12:40 Dose: 0 mls/hr Documented by: [id number] Admin: 03/13/20 04:30 Dose: 200 mls/hr Documented by: [id number] Daptomycin 100 mg/ Syringe 2 mls @ 1 mls/min IV Q24H [facility]; Protocol Stop: 03/23/20 10:59 Last Admin: 03/13/20 12:19 Dose: 1 mls/min Documented by: [id number] Ipratropium [place] (Ipratropium [place] Hfa Inhaler) 4 puffs INH Q6R [facility] Stop: 04/11/20 23:16 Last Admin: 03/13/20 11:45 Dose: Not Given Documented by: [id number] Admin: 03/13/20 00:34 Dose: Not Given Documented by: [id number] Admin: 03/13/20 00:33 Dose: Not Given Documented by: [id number] Levalbuterol HCl (Levalbuterol Tartrate 15 Gm Hfa.Aer.Ad) 4 puffs INH Q6R [facility] Stop: 04/11/20 23:16 Last Admin: 03/13/20 11:45 Dose: Not Given Documented by: [id number] Admin: 03/13/20 00:34 Dose: Not Given Documented by: [id number] Admin: 03/13/20 00:34 Dose: Not Given Documented by: [id number] Magnesium Sulfate/Dextrose (Magnesium Sulfate 1gm / D5w Bag) Confirm Administered Dose 2 gm IV .STK-MED ONE Stop: 03/12/20 19:14 Last Admin: 03/12/20 19:20 Dose: Not Given Documented by: [id number] Midazolam HCl (Midazolam Hcl 1 Mg/Ml 2ml Vial) 2 mg IV Q2H PRN PRN Reason: RASS goal -1 Stop: 04/12/20 02:18 Last Admin: 03/13/20 02:35 Dose: 2 mg Documented by: [id number] Miscellaneous (Rapid Sequence Induction Bag) Confirm Administered Dose 1 ea .ROUTE .STK-MED ONE Stop: 03/12/20 19:31 Last Admin: 03/12/20 20:09 Dose: 1 ea Documented by: [id number] Potassium Chloride (Potassium Chloride Crtab 20 Meq Tabcr) 40 meq PO TODAY@0955 [facility] Stop: 03/13/20 14:00 Last Admin: 03/13/20 13:18 Dose: 40 meq Documented by: [id number] Sodium Bicarbonate (Sodium Bicarb 8.4% Inj 50 Meq/50 Ml Syr) Confirm Administered Dose 100 meq IV .STK-MED ONE Stop: 03/12/20 19:14 Last Admin: 03/12/20 19:20 Dose: Not Given Documented by: [id number] Sodium Bicarbonate (Sodium Bicarb 8.4% Inj 50 Meq/50 Ml Syr) 50 meq IV NOW STA Stop: 03/12/20 19:15 Last Admin: 03/12/20 19:20 Dose: 50 meq Documented by: [id number] Sodium Bicarbonate (Sodium Bicarb 8.4% Inj 50 Meq/50 Ml Syr) 50 meq IV NOW STA Stop: 03/12/20 19:17 Last Admin: 03/12/20 19:20 Dose: 50 meq Documented by: [id number] Description This is a 21 electrode EEG with a single channel dedicated to limited EKG. The electrodes were placed in accordance with the International 10-20 system. REPORT: REPORT: At the onset of the EEG, the patient is awake. The background is symmetric. The posterior dominant rhythm is not well seen. Instead the background consist of low amplitude beta activity. There is frequent electrode artifact from patient head movement. No stage II sleep transients are recorded. IMPRESSION: This is a normal awake routine EEG. Excessive beta activity is a normal variant and can be seen as a medication side effect ( ie benzodiazepines). No epileptiform discharges or electrographic seizures are recorded.
[2020-03-14] MEDS: SULFA/TRIMETH 80/16MG/ML 160 MG in DEXTROSE 5% 250 ML IV SCH (00:25)
[2020-03-14] MEDS: LORazepam 2 MG/4 ML VIAL IV PRN (00:25)
[2020-03-14] MEDS: Standard Conc 16mcg/mL; 8mg in 500mL IV SCH (02:23)
[2020-03-14 04:22] LABS: Hematocrit (blood only) 24.5 % (37-47); Hemoglobin 8.5 g/dL (12.0-16.0); Mean Corpuscular Hemoglobin 32.2 pg (25-34); Mean Corpuscular Hgb Conc 34.7 g/dL (32-36); Mean Corpuscular Volume 92.8 fL (80-100); RDW Coefficient of Variation 14.2 % (11.5-14.5); Red Blood Count 2.64 M/uL (4.2-5.4); White Blood Count 5.74 K/uL (4.8-10.8)
[2020-03-14 04:31] LABS: Mean Platelet Volume 9.6 fL (7.4-10.4); Platelet Count 96 K/uL (130-400)
[2020-03-14 04:42] LABS: Albumin Level 2.8 gm/dl (3.4-5.0); BUN Creatinine Ratio 8.5 (10-20); Calcium 8.4 mg/dl (8.5-10.1); Creatinine Clr Calc Pharmacy 157.3 ml/min; Est GFR (African American) 147.5; Est GFR (Non-African American) 127.2; Magnesium 2.4 mg/dl (1.8-2.4)
[2020-03-14 04:45] LABS: Albumin Globulin Ratio 0.9 (0.9-2); Bilirubin,Total 0.9 mg/dl (0.2-1); Globulin 3.2 gm/dl (2.5-4.0); Phosphorus 1.8 mg/dl (2.5-4.9)
[2020-03-14 04:54] LABS: Eosinophils # (auto) 0.01 K/uL (0-0.5); Eosinophils % (auto) 0.2 %; Lymphocytes # (auto) 1.52 K/uL (1.2-3.4); Lymphocytes % (auto) 26.5 %; Monocytes # (auto) 0.46 K/uL (0.11-0.59); Neutrophils # (auto) 3.75 K/uL (1.4-6.5); Neutrophils % (auto) 65.3 %
[2020-03-14] MEDS ORDERED: POTASSIUM PHOS 3 MMOL/1 ML INFUSION IV STA ×2 (05:04→08:28)
[2020-03-14] MEDS ORDERED: POTASSIUM PHOSPHATE 30 MMOL in SODIUM CHLORIDE 0.9% 500 ML IV ONE (05:15)
[2020-03-14] MEDS: POTASSIUM CHLORIDE / WTR 10 MEQ/100 ML PLCT IV SCH ×2 (05:31→06:50)
[2020-03-14] MEDS ORDERED: DAPTOmycin 350 MG in SYRINGE 0 ML IV SCH (06:00)
--- NOTE | 2020-03-14 07:40 | Critical Care Progress Note ---
Date of Service March 14, 2020 Assessment & Plan (1) Admitted to intensive care unit: Reason Critically Ill: Patient admitted to ICU with intentional polysubstance overdose with suicide attempt, currently requiring intubation, vasopressors, bicarb drip. Neuro - Intentional overdose/suicide attempt/seizures/metabolic encephalopathypatient reported to have overdosed on Wellbutrin, Effexor, levothyroxine, alcohol, iron, and ibuprofen as empty bottles were found next to patient with suicide note -Mental status significantly improved Cardiac - Hypotensionresolved -Arterial line and central line discontinued Prolonged QTCresolved -Outside the window of medication induced arrhythmia Respiratory - Extubated 03/13: Stable GI - Regular diet when mental status improves Lipase within normal limits Transaminitisconsistent with prior studies on admission, will trend this patient at risk for hepatic injury with polypharmacy ingestion -Ammonia within normal limits -Hepatitis C serology (-) August 2019 -Repeat hepatitis C serology: Pending -Of note patient did have ERCP in August and stent remaining on imaging, may need follow-up with GI RENAL/LYTES - Hypokalemia -60 M EQ twice daily orally -20 M EQ's peripheral IV today - Foleycontinue Gramajo ENDO - Hypoglycemiaimproved with dextrose administration -No history diabetes Elevated TSHpatient's TSH of 9 and low T4, hold treatment as patient with reported overdose including levothyroxine -We will repeat in a.m. HEME - H&H anemia -Suspect bone marrow suppression given multiple etiologies ID - Gram-positive bacteremia not MRSA -1 of 2 blood cultures positive suspect contaminant E. coli uncomplicated urinary tract infection: Pansensitive -Decrease daptomycin to Rocephin -Patient does have history of gram-positive bacteremia and IV drug abuse -Repeat cultures pending -COVID-19 negative LINES/IV ACCESS - CVC: Discontinue today A-line discontinued today peripheral IVs, DVT PROPHYLAXIS - SCDs -Lovenox until patient can ambulate Stable for downgrade out of ICU (2) Polysubstance overdose: (3) Hypothermia: (4) UTI (urinary tract infection): (5) Prolonged Q-T interval on ECG: (6) Elevated lactic acid level: (7) Transaminitis: (8) Abnormal thyroid function test: (9) Electrolyte abnormality: (10) Increased anion gap metabolic acidosis: (11) Alcoholism: (12) Mood disorder: Admission and Anticipated Discharge Date Admission Date: March 12, 2020 Subjective [address]ed to self place and time. No overnight events, no significant complaints. Physical Exam Physical Exam: General: Alert. nontoxic. Skin: Warm, dry, Head: Atraumatic Ears, nose, mouth and throat: airway patent Cardiovascular: Normal peripheral perfusion Respiratory: no respiratory distress Gastrointestinal: Non distended Musculoskeletal: No deformity, moves all 4 extremities Results & Data Results & Data ([facility]) Vital Signs (Past 12 Hours) Vital Signs Temp Pulse BP Pulse Ox 03/14/20 06:30 100 H 03/14/20 06:19 97 H 95/67 L 97 03/14/20 06:00 98 H 03/14/20 05:49 96 H 118/79 98 03/14/20 05:30 96 H 94 03/14/20 05:19 100 H 111/79 88 L 03/14/20 05:00 99 H 90 03/14/20 04:49 98 H 108/76 94 03/14/20 04:30 98 H 78 L 03/14/20 04:19 97 H 123/71 91 03/14/20 04:00 37.4 C 97 H 92 03/14/20 03:49 101 H 106/76 95 03/14/20 03:30 101 H 90 03/14/20 03:19 102 H 114/64 90 03/14/20 03:00 98 H 94 03/14/20 02:49 101 H 123/68 89 L 03/14/20 02:30 97 H 93 03/14/20 02:19 100 H 113/77 81 L 03/14/20 02:00 102 H 03/14/20 01:49 101 H 113/75 91 03/14/20 01:30 100 H 96 03/14/20 01:19 99 H 114/74 97 03/14/20 01:00 99 H 96 03/14/20 00:49 100 H 119/89 97 03/14/20 00:30 108 H 96 03/14/20 00:19 112 H 107/69 94 03/14/20 00:00 37.3 C 110 H 93 03/13/20 23:49 109 H 121/80 89 L 03/13/20 23:30 108 H 88 L 03/13/20 23:19 103 H 112/74 95 03/13/20 23:00 99 H 91 03/13/20 22:49 105 H 122/72 91 03/13/20 22:30 102 H 90 03/13/20 22:19 101 H 112/72 91 03/13/20 22:00 100 H 93 03/13/20 21:48 102 H 111/77 92 03/13/20 21:30 104 H 87 L 03/13/20 21:19 104 H 110/68 92 03/13/20 21:03 105 H 109/62 93 03/13/20 21:00 105 H 93 03/13/20 20:30 108 H 94 03/13/20 20:19 109 H 116/73 92 03/13/20 20:00 37.5 C 108 H 92 03/13/20 19:48 109 H 116/74 93 Coding Level of Care Code 40212 Subseq Hosp Care Lvl 3 Diagnoses Admitted to intensive care unit Z78.9 Polysubstance overdose T50.902A Encounter type: initial encounter Injury intent: intentional self-harm Hypothermia T68.XXXA Encounter type: initial encounter UTI (urinary tract infection) N39.0 Prolonged Q-T interval on ECG R94.31 Elevated lactic acid level R79.89 Transaminitis R74.01 Abnormal thyroid function test R94.6 Electrolyte abnormality E87.8 Increased anion gap metabolic acidosis E87.2 Alcoholism F10.20 Mood disorder F39 (1) Hypothermia Encounter type: initial encounter Qualified Code(s): T68.XXXA - Hypothermia, initial encounter (2) Polysubstance overdose Encounter type: initial encounter Injury intent: intentional self-harm Qualified Code(s): T50.902A - Poisoning by unspecified drugs, medicaments and biological substances, intentional self-harm, initial encounter
[2020-03-14] MEDS ORDERED: POTASSIUM PHOSPHATE 15 MMOL in SODIUM CHLORIDE 0.9% 250 ML IV ONE (09:00)
[2020-03-14] MEDS: POTASSIUM CHLORIDE PWD 20 MEQ PACK PO SCH ×2 (09:57→19:37)
[2020-03-14] MEDS: ENOXAPARIN INJ 30 MG/0.3 ML SYR SQ SCH (09:58)
[2020-03-14] MEDS: MULTIVITAMIN TAB PO SCH (09:58)
--- NOTE | 2020-03-14 11:00 | Psychiatric Consultation ---
Date of Consultation March 14, 2020 Impression / Recommendations Impression DrRuben [Chelsea Goodwin] was directly involved in review and discussion of the patient's case and participated in medical decision making regarding treatment recommendations. RECOMMENDATIONS: 03/14 - Psychiatric consultation requested to evaluate patient s/p intentional overdose presumed to be a suicide attempt. Suicide notes were found on scene, and patient is on a [address] warrant per [employer]. Pt should not be permitted to leave the hospital AMA due to presence of 302 warrant on chart. Psych History Chief Complaint "[]". Allergies Allergy/AdvReac Type Severity Reaction Status Date / Time Penicillins Allergy Intermediate HIVES Verified 12/19/19 13:53 Personal History Beliefs That Will Affect Care: None Patient History Medical History Alcohol withdrawal seizure Alcoholism Alcoholism Ascites Drug overdose Elevated lactic acid level Gram-positive cocci bacteremia Headache Hypokalemia Hypomagnesemia Hypomagnesemia Motrin overdose No significant active problems Prolonged Q-T interval on ECG Sepsis Severe acute pancreatitis Tobacco use Transaminitis UTI (urinary tract infection) Weakness Surgical History S/P appendectomy S/P ERCP Social History Smoking Status: Current every day smoker Tobacco Cessation Education Requested by Patient: No (Unable to answer) Hx Alcohol Use: Yes Alcohol type: hard liquor Hx Substance Use: No Preferred Language: Portuguese Communication Ability: Impaired Barrel Assembler Required: No Beliefs That Will Affect Care: None marital status: Single Current Living Situation: Other Current Living Situation Comment: Friend Other Information That Helps Us Care for You: No Feels Safe at Home: Yes Assistive Devices: Oxygen - Continuous Physical Exam Vital Signs (Past 24 Hours): Last Vital Signs Temp 36.8 C 03/14/20 09:49 Pulse 102 H 03/14/20 10:19 Resp 24 03/13/20 08:27 BP 111/70 03/14/20 10:19 Pulse Ox 98 03/14/20 10:19 Review of Systems Constitutional: [denied] Cardiovascular: [denied] Respiratory: [denied] Gastrointestinal: [denied] Neurological: [denied] Psychiatric: [denies symptoms other than stated above] Total of at least 10 systems reviewed, pertinent positives as above and in HPI. Results & Data (PSY) Medications Administered Enoxaparin Sodium (Enoxaparin Inj 30 Mg/0.3 Ml Syr) 30 mg SQ QAM [facility] Stop: 04/13/20 08:59 Last Admin: 03/14/20 09:58 Dose: 30 mg Documented by: [id number] Lorazepam (Ativan) 1 mg in 2 mls @ 0.5 mls/min IV Q10M PRN PRN Reason: seizures Stop: 04/11/20 23:16 Last Admin: 03/13/20 12:17 Dose: 0.5 mls/min Documented by: [id number] Lorazepam (Ativan) 2 mg in 4 mls @ 4 mls/min IV UD PRN; Protocol PRN Reason: EtOH Withdrawl AWSS Score 8,9 Stop: 04/12/20 17:17 Last Admin: 03/14/20 00:25 Dose: 4 mls/min Documented by: [id number] Admin: 03/13/20 18:50 Dose: 4 mls/min Documented by: [id number] Admin: 03/13/20 17:43 Dose: 4 mls/min Documented by: [id number] Potassium Phosphate 15 mmol/ (Sodium Chloride) 255 mls @ 88 mls/hr IV ONE ONE Stop: 03/14/20 11:53 Last Admin: 03/14/20 09:46 Dose: Not Given Documented by: [id number] Multivitamins (Multivitamin Tab) 1 tab PO QAM [facility] Stop: 04/12/20 08:59 Last Admin: 03/14/20 09:58 Dose: 1 tab Documented by: [id number] Admin: 03/13/20 12:19 Dose: 1 tab Documented by: [id number] Potassium Chloride (Potassium Chloride Pwd 20 Meq Pack) 60 meq PO BID [facility] Stop: 03/14/20 21:01 Last Admin: 03/14/20 09:57 Dose: 60 meq Documented by: [id number] Coding
[2020-03-14] MEDS: cefTRIAXone SODIUM 1,000 MG in DEXTROSE 5% 50 ML IV SCH (11:06)
[2020-03-14 12:27] LABS: Folate (Folic Acid) 19.1 ng/ml (>5.38)
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
--- NOTE | 2020-03-14 16:39 | Progress Notes ---
DATE: 03/14/2020 SUBJECTIVE: I am seeing Ms. Wooten in the setting of 2 seizures that occurred in drug overdose, which included Wellbutrin. The patient has a history of heavy alcohol use, although it is unclear if she was withdrawing from alcohol and she had a positive tox screen for alcohol on admission. The patient feels much improved today. She has no headache and she feels less confused. The patient's EEG was unremarkable with the exception of showing some fast activity. OBJECTIVE: On exam, 120/85, 95, 36.8, 93% on room air. The patient is awake, alert, and oriented x3. No right/left confusion is noted. There is normal extraocular motility. Normal facial symmetry. She is not tremulous nor dystaxic on [id number], and [id number] is normal. IMPRESSION AND PLAN: Seizure x2 in the setting of polypharmacy, drug overdose including Wellbutrin. EEG does not show sz activity. The patient does not require anticonvulsants. I would recommend that she have an MRI when able. In that regard, please let us know when that is done and we will review. I indicated to the patient that she will be not able to drive for 6 months from this seizure. I explained the thinking behind not treating as the EEG is normal. We will sign off. Please reconsult if necessary. JORDIND
--- NOTE | 2020-03-14 16:53 | Progress Note ---
Date of Service March 14, 2020 Assessment & Plan Admission and Anticipated Discharge Date Admission Date: March 12, 2020 Subjective Patient had ERCP by me 6 months ago for acute pancreatitis with pancreatic st ricture and ductal leak, PD stent was placed, since then we have been trying to contact the patient to schedule her repeat ERCP for stent removal but she is noncompliant and had multiple admission with alcohol/substance overdose. Currently she is admitted and KUB showed PD stent remains in situ. Prolonged placement of PD stent is high risk for ductal stricture and infections hence this has to be removed this admission. Will schedule EGD for stent removal on 03/16 as this risk of not removing the stent now could cause future devastating morbidity. Results & Data ([facility]) Vital Signs (Past 12 Hours) Vital Signs Temp Pulse Pulse Resp BP BP Pulse Ox 03/14/20 15:27 36.8 C 95 H 18 120/85 93 03/14/20 14:58 96 H 03/14/20 11:55 103 H 03/14/20 10:19 102 H 111/70 98 03/14/20 10:00 103 H 03/14/20 09:49 36.8 C 101 H 115/78 94 03/14/20 09:30 112 H 03/14/20 09:19 105 H 105/72 81 L 03/14/20 09:00 100 H 92 03/14/20 08:49 98 H 114/78 99 03/14/20 08:30 99 H 97 03/14/20 08:19 94 H 105/80 97 03/14/20 08:00 101 H 91 03/14/20 07:49 101 H 112/74 98 03/14/20 07:30 96 H 93 03/14/20 07:19 96 H 80/33 L 98 03/14/20 07:00 104 H 96 03/14/20 06:49 97 H 115/83 95 03/14/20 06:30 100 H 03/14/20 06:19 97 H 95/67 L 97 03/14/20 06:00 98 H 03/14/20 05:49 96 H 118/79 98 03/14/20 05:30 96 H 94 03/14/20 05:19 100 H 111/79 88 L 03/14/20 05:00 99 H 90 03/14/20 04:49 98 H 108/76 94
[2020-03-14] MEDS ORDERED: PROMETHAZINE HCL 12.5 MG in SODIUM CHLORIDE 0.9% 50 ML IV PRN (18:50)
--- NOTE | 2020-03-14 19:16 | Hospitalist Progress Note ---
Date of Service March 14, 2020 Assessment & Plan (1) Encephalopathy: Status post intubation at the ER Multifactorial : Polysubstance overdose secondary to suicidality (Bupropion, NSAID, gabapentin, hold levothyroxine prescription) Recurrent alcohol withdrawal seizures (threshold lowered by home Bupropion) Septic shock ? Recurrent UTI -- s/p Extubation 03/13/19 Weaned off Levophed drip -- electrolytes stable Mult Au Matic Operator coordinated care with poison control --Mental status gradually improving, more conversant, oriented x2-3, but still has some confusion Continue to monitor [facility] with telemetry --Urine culture: E. coli Blood cultures 03/12/2020: 1 out of 2 bottles positive for coagulase staph not lugdunensis Blood cultures 03/14/2020: Pending --Now afebrile, blood pressure stable Continue ceftriaxone day #1 Continue daptomycin day #2 --[address] Psych consulted Patient cannot leave AMA Will need to transition to inpatient psychiatry unit when medically stable AGMA secondary to illness -- HCO3 drip discontinued History of acute pancreatitis, with pancreatic stricture and ductal leak --Status post pancreatic duct stent --Apparently patient has been lost to follow-up for ERCP with stent removal --GI consulted Plan for pancreatic duct stent removal on --We will add Flagyl to Dapto plus ceftriaxone to cover anaerobes History of depression --Hold all psych meds -- Psych consulted, recommendations per #1 History opioid abuse as per records chronic anemia, hemoglobin better than baseline likely secondary to hemoconcentration -- Hg 11 --> 9 Anemia panel: Iron 71, vitamin B12 and folate normal chronic thrombocytopenia -- stable hypothyroidism, persistent TSH elevation from last admission, not currently on medications (inactive Levothyroxine prescription found on review of outpatient records) DVT prophylaxis with SCDs Re: Thrombocytopenia, fall risk Reevaluate daily Full code Disposition Transition to inpatient psych facility when medically stable Admission and Anticipated Discharge Date Admission Date: March 12, 2020 Subjective Follow-up for multiple drug overdose, possible sepsis, etc. Transfer to [facility] telemetry today Seen with RN at the bedside throughout whole encounter Patient is awake and alert, watching TV, oriented times person and place Answer simple questions appropriately but still confused with other things Denies headache, dizziness, chest pain, palpitations, shortness of breath no abdominal pain, problems with urination or bowel movement Did have good breakfast this morning Denies feeling depressed, suicidal ideations, anxiety No other symptoms No other signs or symptoms per equalizer operator of Systems Review of Systems: All systems reviewed & are unremarkable except as noted in Subjective Physical Exam Physical Exam: General- oriented x 2-3, not in distress, speaks in sentences with no effort or accessory muscle use Eyes- anicteric Neck- no JVD Lungs- clear breath sounds bilaterally, no rales/wheezes Heart- normal rate, regular rhythm; no murmurs Abdomen- normal bowel sounds, nondistended, soft, nontender Extremities- no pretibial edema, no calf tenderness Neuro- alert, oriented x 2-3, still has some confusion; no gross focal neurologic deficits Skin- warm & dry Psych-denies depression, suicidal ideation, anxiety Results & Data Results & Data ([facility]) Vital Signs (Past 12 Hours) Vital Signs Temp Pulse Pulse Resp BP BP Pulse Ox 03/14/20 15:27 36.8 C 95 H 18 120/85 93 03/14/20 14:58 96 H 03/14/20 11:55 103 H 03/14/20 10:19 102 H 111/70 98 03/14/20 10:00 103 H 03/14/20 09:49 36.8 C 101 H 115/78 94 03/14/20 09:30 112 H 03/14/20 09:19 105 H 105/72 81 L 03/14/20 09:00 100 H 92 03/14/20 08:49 98 H 114/78 99 03/14/20 08:30 99 H 97 03/14/20 08:19 94 H 105/80 97 03/14/20 08:00 101 H 91 03/14/20 07:49 101 H 112/74 98 03/14/20 07:30 96 H 93 03/14/20 07:19 96 H 80/33 L 98 Laboratory Results Laboratory Results - last 24 hr 03/14/20 03/14/20 03/14/20 04:12 04:12 10:21 WBC 5.74 RBC 2.64 L Hgb 8.5 L Hct 24.5 L MCV 92.8 MCH 32.2 MCHC 34.7 RDW Std Deviation 48.0 H RDW Coeff of Meme 14.2 Plt Count 96 L MPV 9.6 Immature Gran % (Auto) 0.0 Neut % (Auto) 65.3 Lymph % (Auto) 26.5 [place] % (Auto) 8.0 Eos % (Auto) 0.2 Baso % (Auto) 0.0 Neut # (Auto) 3.75 Lymph # (Auto) 1.52 [place]dwell # (Auto) 0.46 Eos # (Auto) 0.01 Baso # (Auto) 0.00 Immature Gran # (Auto) 0.00 Sodium 138 Potassium 3.0 L Chloride 106 Carbon Dioxide 28 Anion Gap 4.0 BUN 4 L Creatinine 0.51 L Est Cr Clr Drug Dosing 157.3 Est GFR ( Amer) 147.5 Est GFR (Non-Af Amer) 127.2 BUN/Creatinine Ratio 8.5 L Glucose 64 L Calcium 8.4 L Phosphorus 1.8 L Magnesium 2.4 Iron 71 Total Bilirubin 0.9 AST 101 H ALT 75 Alkaline Phosphatase 227 H Total Protein 6.0 L Albumin 2.8 L Globulin 3.2 Albumin/Globulin Ratio 0.9 Vitamin B12 Folate 03/14/20 03/14/20 10:21 12:16 WBC RBC Hgb Hct MCV MCH MCHC RDW Std Deviation RDW Coeff of Meme Plt Count MPV Immature Gran % (Auto) Neut % (Auto) Lymph % (Auto) [place]dwell % (Auto) Eos % (Auto) Baso % (Auto) Neut # (Auto) Lymph # (Auto) [place]dwell # (Auto) Eos # (Auto) Baso # (Auto) Immature Gran # (Auto) Sodium Potassium 4.3 D Chloride Carbon Dioxide Anion Gap BUN Creatinine Est Cr Clr Drug Dosing Est GFR ( Amer) Est GFR (Non-Af Amer) BUN/Creatinine Ratio Glucose Calcium Phosphorus Magnesium Iron Total Bilirubin AST ALT Alkaline Phosphatase Total Protein Albumin Globulin Albumin/Globulin Ratio Vitamin B12 609 Folate 19.10
[2020-03-14] MEDS: metroNIDAZOLE 500 MG/100 ML BAG IV SCH (20:54)
[2020-03-15] MEDS: LORazepam 1 MG/2 ML VIAL IV PRN ×7 (00:47→23:43)
[2020-03-15] MEDS: metroNIDAZOLE 500 MG/100 ML BAG IV SCH ×3 (03:20→19:53)
[2020-03-15] MEDS: NICOTINE 14 MG/24 HR PATCH TD SCH (03:20)
[2020-03-15] MEDS: DAPTOmycin 350 MG in SYRINGE 0 ML IV SCH (05:15)
[2020-03-15 07:26] LABS: Eosinophils # (auto) 0.01 K/uL (0-0.5); Eosinophils % (auto) 0.2 %; Hematocrit (blood only) 26.3 % (37-47); Hemoglobin 8.8 g/dL (12.0-16.0); Immature Granulocytes # (auto) 0.01 K/uL (0.00-0.02); Immature Granulocytes % (auto) 0.2 %; Lymphocytes # (auto) 1.32 K/uL (1.2-3.4); Lymphocytes % (auto) 24.2 %; Mean Corpuscular Hemoglobin 31.4 pg (25-34); Mean Corpuscular Hgb Conc 33.5 g/dL (32-36); Mean Corpuscular Volume 93.9 fL (80-100); Mean Platelet Volume 10.7 fL (7.4-10.4); Monocytes # (auto) 0.37 K/uL (0.11-0.59); Monocytes % (auto) 6.8 %; Neutrophils # (auto) 3.75 K/uL (1.4-6.5); Neutrophils % (auto) 68.6 %; Platelet Count 103 K/uL (130-400); RDW Coefficient of Variation 14.2 % (11.5-14.5); RDW Standard Deviation 48.7 fL (36.4-46.3); White Blood Count 5.46 K/uL (4.8-10.8)
[2020-03-15 07:42] LABS: Albumin Level 2.8 gm/dl (3.4-5.0); BUN Creatinine Ratio 8.4 (10-20); Calcium 8.7 mg/dl (8.5-10.1); Creatinine Clr Calc Pharmacy 139.1 ml/min; Est GFR (African American) 142.2; Est GFR (Non-African American) 122.7; Magnesium 2.1 mg/dl (1.8-2.4); Potassium 4.4 mmol/L (3.5-5.1)
--- NOTE | 2020-03-15 07:57 | Hospitalist Progress Note ---
Date of Service March 15, 2020 Assessment & Plan (1) Encephalopathy: Status post intubation at the ER Multifactorial : Polysubstance overdose secondary to suicidality (Bupropion, NSAID, gabapentin, hold levothyroxine prescription) Recurrent alcohol withdrawal seizures (threshold lowered by home Bupropion) Septic shock ? Recurrent UTI -- s/p Extubation 03/13/19 Weaned off Levophed drip -- electrolytes stable Medical Records Coordinator coordinated care with poison control --Mental status gradually improving, more conversant, oriented x2-3, but still has some confusion Continue to monitor MedSurg with telemetry --Urine culture: E. coli Blood cultures 03/12/2020: 1 out of 2 bottles positive for coagulase staph not lugdunensis Blood cultures 03/14/2020: Pending --Now afebrile, blood pressure stable Continue ceftriaxone day #2 Continue daptomycin day #3 Flagyl added --[address] Psych consulted Patient cannot leave AMA Will need to transition to inpatient psychiatry unit when medically stable Seizure in the setting of drug overdose Neurology consulted, EEG obtained - no signs of convulsant activity, do not recommend anticonvulsants - recommend brain MRI if able, MRI ordered AGMA secondary to illness -- HCO3 drip discontinued History of acute pancreatitis, with pancreatic stricture and ductal leak --Status post pancreatic duct stent --Apparently patient has been lost to follow-up for ERCP with stent removal --GI consulted Plan for pancreatic duct stent removal on 03/16/2020 --added Flagyl to Dapto plus ceftriaxone to cover anaerobes History of depression --Hold all psych meds -- Psych consulted, recommendations per #1 History opioid abuse as per records chronic anemia, hemoglobin better than baseline likely secondary to hemoconcentration -- Hg 11 --> 9 Anemia panel: Iron 71, vitamin B12 and folate normal chronic thrombocytopenia -- stable hypothyroidism, persistent TSH elevation from last admission, not currently on medications (inactive Levothyroxine prescription found on review of outpatient records) DVT prophylaxis with SCDs Re: Thrombocytopenia, fall risk Reevaluate daily Full code Disposition Transition to inpatient psych facility when medically stable Admission and Anticipated Discharge Date Admission Date: March 12, 2020 Subjective Pt seen in follow up of SA, seizure in the setting of drug overdose. Initially intubated, psych, ad neurology consulted. Pt is laying in bed in NAD. Sitter at the bedside. Pt is awake and able to answer questions. Denies fever, chills, chest pain, shortness of breath. Breathing comfortably on RA. Reports some mild abd. cramping, also reports having a period. Discussed neurology recs- brain MRI, pt in agreement with the study. Review of Systems Review of Systems: All systems reviewed & are unremarkable except as noted in HPI & below Constitutional: no fever and no chills Respiratory: no cough and no dyspnea Cardiovascular: no chest pain and no palpitations Gastrointestinal: + abdominal pain (mild cramping); no nausea, no vomiting and no diarrhea/loose stools Physical Exam Physical Exam: General- oriented x 2-3, not in distress, speaks in sentences with no effort or accessory muscle use, breathing comfortably on RA Eyes- anicteric Neck- no JVD Lungs- clear breath sounds bilaterally, no rales/wheezes Heart- normal rate, regular rhythm; no murmurs Abdomen- normal bowel sounds, nondistended, soft, nontender Extremities- no pretibial edema, no calf tenderness Neuro- alert, oriented x 2-3 answering most questions appropriately; no gross focal neurologic deficits Skin- warm & dry Psych-denies depression, suicidal ideation, anxiety Results & Data Results & Data ([facility]) Vital Signs (Past 12 Hours) Vital Signs Temp Pulse Pulse Resp BP Pulse Ox 03/15/20 06:57 84 03/15/20 06:49 36.8 C 93 H 21 112/79 99 03/15/20 03:13 37 C 96 H 20 127/78 97 03/14/20 23:33 36.7 C 92 H 20 129/88 03/14/20 20:30 99 Laboratory Results 03/15/20 03/15/20 03/14/20 Range/Units 06:53 06:53 12:16 WBC 5.46 (4.8-10.8) K/uL RBC 2.80 L (4.2-5.4) M/uL Hgb 8.8 L (12.0-16.0) g/dL Hct 26.3 L (37-47) % MCV 93.9 (80-100) fL MCH 31.4 (25-34) pg MCHC 33.5 (32-36) g/dL RDW Std Deviation 48.7 H (36.4-46.3) fL RDW Coeff of Meme 14.2 (11.5-14.5) % Plt Count 103 L (130-400) K/uL MPV 10.7 H (7.4-10.4) fL Immature Gran % (Auto) 0.2 % Neut % (Auto) 68.6 % Lymph % (Auto) 24.2 % [place] % (Auto) 6.8 % Eos % (Auto) 0.2 % Baso % (Auto) 0.0 % Neut # (Auto) 3.75 (1.4-6.5) K/uL Lymph # (Auto) 1.32 (1.2-3.4) K/uL [place] # (Auto) 0.37 (0.11-0.59) K/uL Eos # (Auto) 0.01 (0-0.5) K/uL Baso # (Auto) 0.00 (0-0.2) K/uL Immature Gran # (Auto) 0.01 (0.00-0.02) K/uL Sodium 136 (136-145) mmol/L Potassium 4.4 4.3 D (3.5-5.1) mmol/L Chloride 109 H (98-107) mmol/L Carbon Dioxide 23 (21-32) mmol/L Anion Gap 4.0 (3-11) BUN 5 L (7-18) mg/dl Creatinine 0.57 L (0.6-1.2) mg/dl Est Cr Clr Drug Dosing 139.1 ml/min Est GFR ( Amer) 142.2 Est GFR (Non-Af Amer) 122.7 BUN/Creatinine Ratio 8.4 L (10-20) Glucose 100 H (70-99) mg/dl Calcium 8.7 (8.5-10.1) mg/dl Phosphorus 2.8 D (2.5-4.9) mg/dl Magnesium 2.1 (1.8-2.4) mg/dl Iron (35-150) mcg/dl Total Bilirubin 0.8 (0.2-1) mg/dl AST 58 H (15-37) U/L ALT 64 (12-78) U/L Alkaline Phosphatase 232 H (45-117) U/L Total Protein 6.4 (6.4-8.2) gm/dl Albumin 2.8 L (3.4-5.0) gm/dl Globulin 3.6 (2.5-4.0) gm/dl Albumin/Globulin Ratio 0.8 L (0.9-2) Vitamin B12 (193-986) pg/ml Folate (>5.38) ng/ml Urine MDEA MDMA Urine MDMA 03/14/20 03/14/20 03/12/20 Range/Units 10:21 10:21 19:11 WBC (4.8-10.8) K/uL RBC (4.2-5.4) M/uL Hgb (12.0-16.0) g/dL Hct (37-47) % MCV (80-100) fL MCH (25-34) pg MCHC (32-36) g/dL RDW Std Deviation (36.4-46.3) fL RDW Coeff of Meme (11.5-14.5) % Plt Count (130-400) K/uL MPV (7.4-10.4) fL Immature Gran % (Auto) % Neut % (Auto) % Lymph % (Auto) % [place] % (Auto) % Eos % (Auto) % Baso % (Auto) % Neut # (Auto) (1.4-6.5) K/uL Lymph # (Auto) (1.2-3.4) K/uL [place] # (Auto) (0.11-0.59) K/uL Eos # (Auto) (0-0.5) K/uL Baso # (Auto) (0-0.2) K/uL Immature Gran # (Auto) (0.00-0.02) K/uL Sodium (136-145) mmol/L Potassium (3.5-5.1) mmol/L Chloride (98-107) mmol/L Carbon Dioxide (21-32) mmol/L Anion Gap (3-11) BUN (7-18) mg/dl Creatinine (0.6-1.2) mg/dl Est Cr Clr Drug Dosing ml/min Est GFR ( Amer) Est GFR (Non-Af Amer) BUN/Creatinine Ratio (10-20) Glucose (70-99) mg/dl Calcium (8.5-10.1) mg/dl Phosphorus (2.5-4.9) mg/dl Magnesium (1.8-2.4) mg/dl Iron 71 (35-150) mcg/dl Total Bilirubin (0.2-1) mg/dl AST (15-37) U/L ALT (12-78) U/L Alkaline Phosphatase (45-117) U/L Total Protein (6.4-8.2) gm/dl Albumin (3.4-5.0) gm/dl Globulin (2.5-4.0) gm/dl Albumin/Globulin Ratio (0.9-2) Vitamin B12 609 (193-986) pg/ml Folate 19.10 (>5.38) ng/ml Urine MDEA negative MDMA negative Urine MDMA negative Medications Administered Current Inpatient Medications Enoxaparin Sodium (Enoxaparin Inj 30 Mg/0.3 Ml Syr) 30 mg SQ QAM LINDSAY Stop: 04/13/20 08:59 Last Admin: 03/15/20 08:22 Dose: 30 mg Documented by: Lorazepam (Ativan) 1 mg in 2 mls @ 0.5 mls/min IV Q10M PRN PRN Reason: seizures Stop: 04/11/20 23:16 Last Admin: 03/15/20 06:54 Dose: 0.5 mls/min Documented by: Lorazepam (Ativan) 0.5 mg in 1 mls @ 1 mls/min IV Q2H PRN PRN Reason: RASS goal -1 Stop: 04/11/20 23:16 Lorazepam (Ativan) 1 mg in 2 mls @ 2 mls/min IV UD PRN; Protocol PRN Reason: EtOH Withdrawl AWSS Score 6,7 Stop: 04/12/20 17:17 Last Admin: 03/15/20 03:20 Dose: 2 mls/min Documented by: Lorazepam (Ativan) 2 mg in 4 mls @ 4 mls/min IV UD PRN; Protocol PRN Reason: EtOH Withdrawl AWSS Score 8,9 Stop: 04/12/20 17:17 Last Admin: 03/14/20 00:25 Dose: 4 mls/min Documented by: Lorazepam (Ativan) 3 mg in 6 mls @ 4 mls/min IV ONCE PRN; Protocol PRN Reason: EtOH Withdrawl AWSS Score >=10 Stop: 04/12/20 17:17 Ceftriaxone Sodium 1,000 mg/ (Dextrose) 50 mls @ 100 mls/hr IV Q24H [facility]; Protocol Stop: 03/28/20 09:59 Last Infusion: 03/14/20 11:55 Dose: Infused Documented by: Daptomycin 350 mg/ Syringe 7 mls @ 3.5 mls/min IV Q24H [facility]; Protocol Stop: 03/29/20 05:59 Last Admin: 03/15/20 05:15 Dose: 3.5 mls/min Documented by: Promethazine HCl 12.5 mg/ (Sodium Chloride) 50.5 mls @ 202 mls/hr IV Q6H PRN PRN Reason: Nausea And Vomiting Stop: 04/13/20 18:49 Last Infusion: 03/14/20 23:24 Dose: Infused Documented by: Metronidazole (Flagyl) 500 mg in 100 mls @ 100 mls/hr IV Q8H [facility] Stop: 03/24/20 19:59 Last Infusion: 03/15/20 04:22 Dose: Infused Documented by: Miscellaneous (Remove Nicoderm Patch) 1 ea N/A DAILY@0859 [facility] Stop: 04/14/20 08:58 Last Admin: 03/15/20 08:22 Dose: 1 ea Documented by: Miscellaneous Information (Daptomycin Consult Active) 1 ea N/A UD PRN PRN Reason: Consult Stop: 04/13/20 09:36 Multivitamins (Multivitamin Tab) 1 tab PO QAM [facility] Stop: 04/12/20 08:59 Last Admin: 03/15/20 08:21 Dose: 1 tab Documented by: Nicotine (Nicotine 14 Mg/24 Hr Patch) 14 mg TD QAM [facility] Stop: 04/14/20 00:54 Last Admin: 03/15/20 03:20 Dose: 14 mg Documented by:
[2020-03-15 08:03] LABS: Albumin Globulin Ratio 0.8 (0.9-2); Bilirubin,Total 0.8 mg/dl (0.2-1); Globulin 3.6 gm/dl (2.5-4.0); Phosphorus 2.8 mg/dl (2.5-4.9); Total Protein 6.4 gm/dl (6.4-8.2)
[2020-03-15 08:07] LABS: MDA negative; MDEA negative; MDMA (Ecstasy) Urine, Confirm negative
[2020-03-15] MEDS: MULTIVITAMIN TAB PO SCH (08:21)
[2020-03-15] MEDS: ENOXAPARIN INJ 30 MG/0.3 ML SYR SQ SCH (08:22)
[2020-03-15] MEDS ORDERED: LORazepam 0.5 MG TAB PO PRN (10:14)
[2020-03-15] MEDS: cefTRIAXone SODIUM 1,000 MG in DEXTROSE 5% 50 ML IV SCH (10:29)
--- NOTE | 2020-03-15 10:44 | Gastroenterology Progress Note ---
Date of Service March 15, 2020 Assessment & Plan (1) Suicide attempt by drug overdose: (2) S/P ERCP: Pt is a 34 y/o female who is currently admitted after drug overdose for suicide attempt. GI involved as she had hx of pancreatitis complicated by pancreatic stricture and ductal leak, PD stent placement back in August 2019. We attempted multiple times to contact pt to schedule repeat ERCP for PD stent removal however she had been non compliant and had multiple repeat hospital admissions. PD stent currently still in place. Will plan to remove PD stent tomorrow 03/16 via EGD procedure by Dr. Shea. Please keep her NPO after midnight. Admission and Anticipated Discharge Date Admission Date: March 12, 2020 Supervising Physician Co-Signing Physician Notes I have seen and examined the patient and discussed the management with YOMAIRA Mcintyre. Patient has a history of pancreatic stent placement for a disrupted pancreatic duct this summer and was admitted for a drug overdose that she appears to be recovering from. PE - well nourished fm in nad, alert and oriented to person, place, time HEENT - perrla, Abd - soft nt nd +bs Labs reviewed Planning for an EGD with a stent removal on 03/16/19 given the concerns for the stent being in too long and if continued to stay in, concerns for pancreatic stricturing. Subjective Pt denies abd pain, n/v overnight. Tolerating regular diet. She is inquiring about DC plans and restarting her psych meds. Review of Systems Review of Systems: All systems reviewed & are unremarkable except as noted in HPI & below Physical Exam Constitutional: WD/WN, vitals as above well groomed, cooperative and comfortable Eyes: PERRL, conjunctivae normal, anicteric sclerae ENMT: external ear and nose normal, oropharynx normal Respiratory: normal respiratory effort, lungs clear to auscultation Cardiovascular: RRR, no murmur, no edema Gastrointestinal (Abdomen): normal bowel sounds, soft, nontender, no hepatosplenomegaly Skin: no rashes, warm and dry no jaundice Psychiatric: A+Ox3, euthymic affect Lymphatic: no lymphedema Results & Data ([facility]) Vital Signs (Past 12 Hours) Vital Signs Temp Pulse Pulse Resp BP Pulse Ox 03/15/20 06:57 84 03/15/20 06:49 36.8 C 93 H 21 112/79 99 03/15/20 03:13 37 C 96 H 20 127/78 97 03/14/20 23:33 36.7 C 92 H 20 129/88
--- NOTE | 2020-03-15 12:09 | Magnetic Resonance Report ---
MRI OF THE BRAIN WITHOUT IV CONTRAST CLINICAL HISTORY: Seizure. Anxiety. Overdose. COMPARISON STUDY: CT of the brain dated 03/12/2020. MRI of the brain dated 12/21/2019. TECHNIQUE: MRI of the brain was performed utilizing various T1 and T2-weighted sequences in the axial , sagittal, and coronal planes. IV contrast was not administered for this examination. The examinatio n is performed using the seizure protocol. FINDINGS: Brain parenchyma: The brain parenchyma is normal in appearance. There is no hemorrhage or mass effect . There is no restricted diffusion to suggest acute ischemia. Park-white matter differentiation is pr eserved. No extra-axial fluid collection is seen. The cerebellar tonsils are normal in configuration. Mild hippocampal atrophy is unchanged from previous.. Ventricles, sulci, and cisterns: Normal in configuration. Pituitary and sella: Unremarkable. Intracranial vasculature: Normal flow voids are maintained at the skull base. Orbits: The bony orbits are grossly intact. Orbital contents are normal in appearance. Sinuses and mastoids: Clear. Calvarium: Unremarkable. Cervical cord: Partially visualized cervical spinal cord is normal in morphology and signal intensity . IMPRESSION: 1. No acute intracranial abnormality. 2. Mild nonspecific hippocampal atrophy is unchanged from previous. ACT 112: Negative or not required by law. Electronically signed by: Felice Amato M.D. 03/15/2020 12:07 PM
--- NOTE | 2020-03-15 13:35 | Anesthesiology Consultation ---
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 History Surgery Operation Date: 03/16/20 09:15 Proposed Procedures p EGD stent Removal - Mae Shea MD Height/Weight Height: 5 ft 5 in Weight: 70 kg Allergies Allergy/AdvReac Type Severity Reaction Status Date / Time Penicillins Allergy Intermediate HIVES Verified 12/19/19 13:53 Medications Active Medications Generic Name Dose Route Start Last Admin Trade Name Freq PRN Reason Stop Dose Admin Enoxaparin Sodium 30 mg 03/14/20 09:00 03/15/20 08:22 Enoxaparin Inj 30 Mg/0.3 Ml Syr SQ 04/13/20 08:59 30 mg QAM LINDSAY Administration Lorazepam 1 mg in 2 mls @ 0.5 mls/min 03/12/20 23:17 03/15/20 06:54 Ativan IV 04/11/20 23:16 0.5 mls/min Q10M PRN Administration seizures Lorazepam 1 mg in 2 mls @ 2 mls/min 03/13/20 17:18 03/15/20 12:58 Ativan IV 04/12/20 17:17 2 mls/min UD PRN Administration EtOH Withdrawl AWSS Score 6,7 Protocol Lorazepam 2 mg in 4 mls @ 4 mls/min 03/13/20 17:18 03/14/20 00:25 Ativan IV 04/12/20 17:17 4 mls/min UD PRN Administration EtOH Withdrawl AWSS Score 8,9 Protocol Ceftriaxone Sodium 1,000 mg/ 50 mls @ 100 mls/hr 03/14/20 10:00 03/15/20 11:01 Dextrose IV 03/28/20 09:59 Infused Q24H [facility] Infusion Protocol Daptomycin 350 mg/ Syringe 7 mls @ 3.5 mls/min 03/15/20 06:00 03/15/20 05:15 IV 03/29/20 05:59 3.5 mls/min Q24H [facility] Administration Protocol Promethazine HCl 12.5 mg/ 50.5 mls @ 202 mls/hr 03/14/20 18:50 03/14/20 23:24 Sodium Chloride IV 04/13/20 18:49 Infused Q6H PRN Infusion Nausea And Vomiting Metronidazole 500 mg in 100 mls @ 100 mls/hr 03/14/20 20:00 03/15/20 13:20 Flagyl IV 03/24/20 19:59 Infused Q8H [facility] Infusion Lorazepam 0.5 mg 03/15/20 10:14 03/15/20 10:47 Lorazepam 0.5 Mg Tab PO 04/14/20 10:13 0.5 mg ONE PRN Administration anxiety, prior to MRI Miscellaneous 1 ea 03/15/20 08:59 03/15/20 08:22 Remove Nicoderm Patch N/A 04/14/20 08:58 1 ea DAILY@0859 [facility] Administration Multivitamins 1 tab 03/13/20 09:00 03/15/20 08:21 Multivitamin Tab PO 04/12/20 08:59 1 tab QAM LINDSAY Administration Nicotine 14 mg 03/15/20 00:55 03/15/20 03:20 Nicotine 14 Mg/24 Hr Patch TD 04/14/20 00:54 14 mg QAM LINDSAY Administration Past Medical History Medical History Alcohol dependence Alcohol withdrawal seizure Alcoholism Alcoholism Ascites Drug overdose Elevated lactic acid level Gram-positive cocci bacteremia Headache Hypokalemia Hypomagnesemia Hypomagnesemia Motrin overdose No significant active problems Prolonged Q-T interval on ECG Sepsis Severe acute pancreatitis Suicide attempt by drug overdose Tobacco use Transaminitis UTI (urinary tract infection) Weakness Past Surgical History Surgical History S/P appendectomy S/P ERCP Social History Smoking Status: Current every day smoker tobacco type: cigarettes Hx Alcohol Use: Yes Alcohol type: hard liquor alcohol intake frequency: 0-2 drinks per day Alcohol Intake Frequency Comment: Unable to answer Hx Substance Use: No substance use type: does not use Physical Exam Vital Signs Last Vital Signs Temp 98.2 F 03/15/20 11:00 Pulse 111 H 03/15/20 11:00 Resp 20 03/15/20 11:00 BP 113/77 03/15/20 11:00 Pulse Ox 100 03/15/20 11:00 Testing Laboratory Results 03/15/20 06:53 03/15/20 06:53 PT 12.0 Seconds (9.0-12.0) 03/13/20 05:07 INR 1.1 (0.9-1.1) 03/13/20 05:07 APTT 25.5 Seconds (21.0-31.0) 03/13/20 05:07 Urine Color Yellow 03/12/20 19:11 Urine Appearance Clear (Clear) 03/12/20 19:11 Urine pH 5.0 (4.5-7.5) 03/12/20 19:11 Ur Specific [place] 1.010 (1.000-1.030) 03/12/20 19:11 Urine Protein Negative (Negative) 03/12/20 19:11 Urine Glucose (UA) Negative (Negative) 03/12/20 19:11 Urine Ketones Negative (Negative) 03/12/20 19:11 Urine Nitrite Negative (Negative) 03/12/20 19:11 Ur Leukocyte Esterase 2+ (Negative) H 03/12/20 19:11 Urine WBC (Auto) 5-10 /hpf (0-5) H 03/12/20 19:11 Urine RBC (Auto) 0-4 /hpf (0-4) 03/12/20 19:11 U Hyaline Cast (Auto) 1-5 /lpf (0-5) 03/12/20 19:11 U Epithel Cells (Auto) >30 /lpf (0-5) H 03/12/20 19:11 Urine Bacteria (Auto) 1+ (Negative) H 03/12/20 19:11 Urine Test Negative (Negative) 03/13/20 00:15 Blood Type O Negative 03/12/20 23:50 Antibody Screen NEGATIVE 03/12/20 23:50 03/14/20 04:13 Aerobic Blood Culture - Preliminary Blood No growth in Aerobic bottle after 24 hours. Anaerobic Blood Culture - Preliminary No growth in Anaerobic bottle after 24 hours. 03/14/20 04:12 Aerobic Blood Culture - Preliminary Blood No growth in Aerobic bottle after 24 hours. Anaerobic Blood Culture - Preliminary No growth in Anaerobic bottle after 24 hours. 03/12/20 18:55 Aerobic Blood Culture - Preliminary Blood No growth in Aerobic bottle after 48 hours. Anaerobic Blood Culture - Preliminary No growth in Anaerobic bottle after 48 hours. 03/12/20 19:11 Urine Culture - Final Urine,Clean Catch Escherichia coli 03/12/20 20:42 Aerobic Blood Culture - Final Blood Coag neg staph not lugdunensis Anaerobic Blood Culture - Final Coag neg staph not lugdunensis 03/13/20 00:15 Urine Test Negative Laboratory Tests 03/12/20 03/13/20 21:17 00:15 Urine Test Negative SARS-CoV-2 (PCR) NEGATIVE Electrocardiogram Date: 03/13/20 Sinus tachycardia, rate 112 bpm Otherwise normal ECG When compared with ECG of 13-MAR-2020 05:39, No significant change was found Confirmed by Pepe Seth ([id number]) on 03/13/2020 2:34:46 PM Chest X-Ray Date: 03/12/20 IMPRESSION: 1. Satisfactory support line placement as described above. 2. Stable mild cardiomegaly. Echocardiogram Date: 08/29/19 There is no evidence of a mass or vegetation. This does not rule out endocarditis. The LV is normal in size The LV is hyperdynamic EF = 60-65% The RV systolic function is normal The LA size is normal Right atrial size is normal
[2020-03-16] MEDS: metroNIDAZOLE 500 MG/100 ML BAG IV SCH ×3 (04:15→19:20)
[2020-03-16] MEDS: LORazepam 1 MG/2 ML VIAL IV PRN (04:52)
[2020-03-16] MEDS: DAPTOmycin 350 MG in SYRINGE 0 ML IV SCH (05:45)
[2020-03-16 07:19] LABS: Eosinophils # (auto) 0.01 K/uL (0-0.5); Eosinophils % (auto) 0.2 %; Hematocrit (blood only) 32.6 % (37-47); Immature Granulocytes # (auto) 0.02 K/uL (0.00-0.02); Immature Granulocytes % (auto) 0.4 %; Lymphocytes # (auto) 1.29 K/uL (1.2-3.4); Lymphocytes % (auto) 25.7 %; Mean Corpuscular Hemoglobin 31.7 pg (25-34); Mean Corpuscular Hgb Conc 33.7 g/dL (32-36); Mean Corpuscular Volume 93.9 fL (80-100); Mean Platelet Volume 10.7 fL (7.4-10.4); Monocytes # (auto) 0.51 K/uL (0.11-0.59); Monocytes % (auto) 10.2 %; Neutrophils # (auto) 3.19 K/uL (1.4-6.5); Neutrophils % (auto) 63.5 %; Platelet Count 125 K/uL (130-400); RDW Coefficient of Variation 14.5 % (11.5-14.5); RDW Standard Deviation 48.6 fL (36.4-46.3); Red Blood Count 3.47 M/uL (4.2-5.4); White Blood Count 5.02 K/uL (4.8-10.8)
[2020-03-16 07:56] LABS: Albumin Level 3.2 gm/dl (3.4-5.0); BUN Creatinine Ratio 10.6 (10-20); Calcium 9.1 mg/dl (8.5-10.1); Est GFR (African American) 137.6; Est GFR (Non-African American) 118.7; Potassium 3.9 mmol/L (3.5-5.1)
[2020-03-16 08:07] LABS: Albumin Globulin Ratio 0.8 (0.9-2); Bilirubin,Total 0.6 mg/dl (0.2-1); Globulin 4.1 gm/dl (2.5-4.0); Phosphorus 4.4 mg/dl (2.5-4.9); Total Protein 7.3 gm/dl (6.4-8.2)
--- NOTE | 2020-03-16 09:06 | Gastroenterology Progress Note ---
Date of Service March 16, 2020 Assessment & Plan (1) Suicide attempt by drug overdose: (2) S/P ERCP: Pt is a 34 y/o female who is currently admitted after drug overdose for suicide attempt. GI involved as she had hx of pancreatitis complicated by pancreatic stricture and ductal leak, PD stent placement back in August 2019. We attempted multiple times to contact pt to schedule repeat ERCP for PD stent removal however she had been non compliant and had multiple repeat hospital admissions. PD stent currently still in place. Will plan to remove PD stent today via EGD procedure by Dr. Shea. Please keep her NPO. Admission and Anticipated Discharge Date Admission Date: March 12, 2020 Supervising Physician Co-Signing Physician Notes I performed a history and physical examination of the patient today, including specifically on physical exam - soft abdomen. I have discussed the patient's management with the advanced practitioner. Please refer to the nurse practitioner's note for the documented findings and plan of care. EGD with stent removal today. Subjective Pt denies abd pain, n/v overnight. Been NPO Review of Systems Review of Systems: All systems reviewed & are unremarkable except as noted in HPI & below Physical Exam Constitutional: WD/WN, vitals as above well groomed, cooperative and comfortable Eyes: PERRL, conjunctivae normal, anicteric sclerae ENMT: external ear and nose normal, oropharynx normal Respiratory: normal respiratory effort, lungs clear to auscultation Cardiovascular: RRR, no murmur, no edema Gastrointestinal (Abdomen): normal bowel sounds, soft, nontender, no hepatosplenomegaly Skin: no rashes, warm and dry no jaundice Psychiatric: A+Ox3, euthymic affect Lymphatic: no lymphedema Results & Data ([facility]) Vital Signs (Past 12 Hours) Vital Signs Temp Pulse Pulse Resp BP BP Pulse Ox 03/16/20 08:50 36.6 C 114 H 16 112/83 100 03/16/20 07:18 80 03/16/20 04:00 36.7 C 102 H 20 125/72 96 03/15/20 23:59 94 H 03/15/20 23:42 36.4 C L 89 21 112/81 97
--- NOTE | 2020-03-16 09:13 | Hospitalist Progress Note ---
Date of Service March 16, 2020 Assessment & Plan (1) Encephalopathy: Status post intubation at the ER Multifactorial : Polysubstance overdose secondary to suicidality (Bupropion, NSAID, gabapentin, hold levothyroxine prescription) Recurrent alcohol withdrawal seizures (threshold lowered by home Bupropion) Septic shock ? 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 coli, pansensitive Blood cultures 03/12/2020: 1 out of 2 bottles positive for coagulase staph not lugdunensis (likely contaminant) Blood cultures 03/14/2020: NGTD --Now afebrile, blood pressure stable Continue ceftriaxone , flagyl Will stop daptomycin --[address] Psych consulted Patient cannot leave AMA Will need to transition to inpatient psychiatry unit when medically stable Seizure in the setting of drug overdose Neurology consulted, EEG obtained - no signs of convulsant activity, do not recommend anticonvulsants - recommend brain MRI - brain MRI unremarkable -Pt can not drive for 6 months, paperwork submitted to [facility] secondary to illness -- HCO3 drip discontinued History of acute pancreatitis, with pancreatic stricture and ductal leak --Status post pancreatic duct stent --Apparently patient has been lost to follow-up for ERCP with stent removal --GI consulted Now s/p plastic pancreatic duct stent removal (03/16/2020) --added Flagyl to cover anaerobes History of depression --Hold all psych meds -- Psych consulted, recommendations per #1 History opioid abuse as per records chronic anemia, hemoglobin better than baseline likely secondary to hemoconcentration -- Hg 11 --> 9 Anemia panel: Iron 71, vitamin B12 and folate normal chronic thrombocytopenia -- stable hypothyroidism, persistent TSH elevation from last admission, not currently on medications (inactive Levothyroxine prescription found on review of outpatient records) DVT prophylaxis with SCDs Re: Thrombocytopenia, fall risk Reevaluate daily Full code Disposition Transition to inpatient psych facility when medically stable Admission and Anticipated Discharge Date Admission Date: March 12, 2020 Subjective Pt seen in follow up of SA/ drug overdose and other med. problems. Pt s/p plastic pancreatic stent removal w/ GI. Currently somnolent from anesthesia but easily awakened, denies any complaints. Review of Systems Review of Systems: All systems reviewed & are unremarkable except as noted in HPI & below Constitutional: no fever and no chills Respiratory: no cough and no dyspnea Cardiovascular: no chest pain, no palpitations and no edema Gastrointestinal: no abdominal pain, no nausea and no vomiting Physical Exam Physical Exam: General- somnolent (after anesthesia) but easily arousable, not in distress, speaks in sentences with no effort or accessory muscle use, breathing comfortably on RA Eyes- anicteric Neck- no JVD Lungs- clear breath sounds bilaterally, no rales/wheezes Heart- normal rate, regular rhythm; no murmurs Abdomen- normal bowel sounds, nondistended, soft, nontender Extremities- no pretibial edema, no calf tenderness Neuro- somnolent, answering most questions appropriately; no gross focal neurologic deficits Skin- warm & dry Psych- somnolent, euthymic Results & Data Results & Data ([facility]) Vital Signs (Past 12 Hours) Vital Signs Temp Pulse Pulse Resp BP BP Pulse Ox 03/16/20 08:50 36.6 C 114 H 16 112/83 100 03/16/20 07:18 80 03/16/20 04:00 36.7 C 102 H 20 125/72 96 03/15/20 23:59 94 H 03/15/20 23:42 36.4 C L 89 21 112/81 97 Laboratory Results 03/16/20 03/16/20 Range/Units 06:36 06:36 WBC 5.02 (4.8-10.8) K/uL RBC 3.47 L (4.2-5.4) M/uL Hgb 11.0 L (12.0-16.0) g/dL Hct 32.6 L (37-47) % MCV 93.9 (80-100) fL MCH 31.7 (25-34) pg MCHC 33.7 (32-36) g/dL RDW Std Deviation 48.6 H (36.4-46.3) fL RDW Coeff of Meme 14.5 (11.5-14.5) % Plt Count 125 L (130-400) K/uL MPV 10.7 H (7.4-10.4) fL Immature Gran % (Auto) 0.4 % Neut % (Auto) 63.5 % Lymph % (Auto) 25.7 % [place] % (Auto) 10.2 % Eos % (Auto) 0.2 % Baso % (Auto) 0.0 % Neut # (Auto) 3.19 (1.4-6.5) K/uL Lymph # (Auto) 1.29 (1.2-3.4) K/uL [place] # (Auto) 0.51 (0.11-0.59) K/uL Eos # (Auto) 0.01 (0-0.5) K/uL Baso # (Auto) 0.00 (0-0.2) K/uL Immature Gran # (Auto) 0.02 (0.00-0.02) K/uL Sodium 137 (136-145) mmol/L Potassium 3.9 (3.5-5.1) mmol/L Chloride 105 (98-107) mmol/L Carbon Dioxide 29 (21-32) mmol/L Anion Gap 3.0 (3-11) BUN 7 (7-18) mg/dl Creatinine 0.63 (0.6-1.2) mg/dl Est Cr Clr Drug Dosing 126.0 ml/min Est GFR ( Amer) 137.6 Est GFR (Non-Af Amer) 118.7 BUN/Creatinine Ratio 10.6 (10-20) Glucose 106 H (70-99) mg/dl Calcium 9.1 (8.5-10.1) mg/dl Phosphorus 4.4 D (2.5-4.9) mg/dl Magnesium 2.0 (1.8-2.4) mg/dl Total Bilirubin 0.6 (0.2-1) mg/dl AST 33 (15-37) U/L ALT 58 (12-78) U/L Alkaline Phosphatase 247 H (45-117) U/L Total Protein 7.3 (6.4-8.2) gm/dl Albumin 3.2 L (3.4-5.0) gm/dl Globulin 4.1 H (2.5-4.0) gm/dl Albumin/Globulin Ratio 0.8 L (0.9-2) Medications Administered Current Inpatient Medications Enoxaparin Sodium (Enoxaparin Inj 30 Mg/0.3 Ml Syr) 30 mg SQ QAM [facility] Stop: 04/13/20 08:59 Last Admin: 03/15/20 08:22 Dose: 30 mg Documented by: Lorazepam (Ativan) 1 mg in 2 mls @ 0.5 mls/min IV Q10M PRN PRN Reason: seizures Stop: 04/11/20 23:16 Last Admin: 03/15/20 21:36 Dose: 0.5 mls/min Documented by: Lorazepam (Ativan) 0.5 mg in 1 mls @ 1 mls/min IV Q2H PRN PRN Reason: RASS goal -1 Stop: 04/11/20 23:16 Lorazepam (Ativan) 1 mg in 2 mls @ 2 mls/min IV UD PRN; Protocol PRN Reason: EtOH Withdrawl AWSS Score 6,7 Stop: 04/12/20 17:17 Last Admin: 03/16/20 04:52 Dose: 2 mls/min Documented by: Lorazepam (Ativan) 2 mg in 4 mls @ 4 mls/min IV UD PRN; Protocol PRN Reason: EtOH Withdrawl AWSS Score 8,9 Stop: 04/12/20 17:17 Last Admin: 03/14/20 00:25 Dose: 4 mls/min Documented by: Lorazepam (Ativan) 3 mg in 6 mls @ 4 mls/min IV ONCE PRN; Protocol PRN Reason: EtOH Withdrawl AWSS Score >=10 Stop: 04/12/20 17:17 Ceftriaxone Sodium 1,000 mg/ (Dextrose) 50 mls @ 100 mls/hr IV Q24H [facility]; Protocol Stop: 03/28/20 09:59 Last Infusion: 03/15/20 11:01 Dose: Infused Documented by: Daptomycin 350 mg/ Syringe 7 mls @ 3.5 mls/min IV Q24H [facility]; Protocol Stop: 03/29/20 05:59 Last Admin: 03/16/20 05:45 Dose: 3.5 mls/min Documented by: Promethazine HCl 12.5 mg/ (Sodium Chloride) 50.5 mls @ 202 mls/hr IV Q6H PRN PRN Reason: Nausea And Vomiting Stop: 04/13/20 18:49 Last Infusion: 03/14/20 23:24 Dose: Infused Documented by: Metronidazole (Flagyl) 500 mg in 100 mls @ 100 mls/hr IV Q8H [facility] Stop: 03/24/20 19:59 Last Infusion: 03/16/20 05:48 Dose: Infused Documented by: Lorazepam (Lorazepam 0.5 Mg Tab) 0.5 mg PO ONE PRN PRN Reason: anxiety, prior to MRI Stop: 04/14/20 10:13 Last Admin: 03/15/20 10:47 Dose: 0.5 mg Documented by: Miscellaneous (Remove Nicoderm Patch) 1 ea N/A DAILY@0859 [facility] Stop: 04/14/20 08:58 Last Admin: 03/15/20 08:22 Dose: 1 ea Documented by: Miscellaneous Information (Daptomycin Consult Active) 1 ea N/A UD PRN PRN Reason: Consult Stop: 04/13/20 09:36 Multivitamins (Multivitamin Tab) 1 tab PO QAM [facility] Stop: 04/12/20 08:59 Last Admin: 03/15/20 08:21 Dose: 1 tab Documented by: Nicotine (Nicotine 14 Mg/24 Hr Patch) 14 mg TD QAM [facility] Stop: 04/14/20 00:54 Last Admin: 03/15/20 03:20 Dose: 14 mg Documented by:
[2020-03-16] MEDS: ENOXAPARIN INJ 30 MG/0.3 ML SYR SQ SCH (09:20)
[2020-03-16] MEDS: MULTIVITAMIN TAB PO SCH (09:22)
[2020-03-16] MEDS: NICOTINE 14 MG/24 HR PATCH TD SCH (09:24)
[2020-03-16] MEDS: cefTRIAXone SODIUM 1,000 MG in DEXTROSE 5% 50 ML IV SCH (09:24)
--- NOTE | 2020-03-16 10:04 | History & Physical Bridge Note ---
Date of Service March 16, 2020 History & Physical Bridge Note I have examined the patient, reviewed the History & Physical and in the interval since the performance of the History & Physical I have noted the following changes of clinical significance: no changes noted
[2020-03-16] MEDS ORDERED: ePHEDrine sulfate 50 MG/ML AMP IV PRN (10:22)
[2020-03-16] MEDS ORDERED: ATROPINE SULFATE 0.1 MG/ML 10ML SYR IV PRN (10:22)
[2020-03-16] MEDS ORDERED: PROPOFOL IV EMULSION 10 MG/ML 20 ML VIAL IV ONE (10:33)
[2020-03-16] MEDS ORDERED: ONDANSETRON INJ 2 MG/ML 2 ML VIAL ONE (10:33)
[2020-03-16] MEDS ORDERED: GLYCOPYRROLATE 0.2 MG/ML VIAL ONE (10:33)
[2020-03-16] MEDS ORDERED: LIDOCAINE HCL 2% 2 ML VIAL/AMP(20MG/ML) INFIL ONE (10:33)
--- NOTE | 2020-03-16 10:40 | GI REPORT ---
Patient Name: Ana Wooten Procedure Date: 03/16/2020 9:33 AM Date of : 1985 Admit Type: Inpatient Age: 34 Gender: Female Attending MD: Mae Shea MD Procedure: Upper GI endoscopy Providers: Mae Shea MD Referring MD: Cheo Hood Md Indications: Pancreatic stent removal Medicines: Propofol per Anesthesia Complications: No immediate complications. Estimated Blood Loss: Estimated blood loss: none. Procedure: Pre-Anesthesia Assessment: - Prior to the procedure, a History and Physical was performed, and patient medications, allergies and sensitivities were reviewed. The patient's tolerance of previous anesthesia was reviewed. - The risks and benefits of the procedure and the sedation options and risks were discussed with the patient. All questions were answered and informed consent was obtained. - Patient identification and proposed procedure were verified prior to the procedure by the physician and the nurse. The procedure was verified in the procedure room. - Pre-procedure physical examination revealed no contraindications to sedation. After obtaining informed consent, the endoscope was passed under direct vision. Throughout the procedure, the patient's blood pressure, pulse, and oxygen saturations were monitored continuously. The Endoscope was introduced through the mouth, and advanced to the second part of duodenum. The upper GI endoscopy was accomplished without difficulty. The patient tolerated the procedure well. Findings: The examined esophagus was normal. The entire examined stomach was normal. A previously placed plastic pancreatic stent was seen at the major papilla. Stent removal was accomplished with a rat-toothed forceps. Impression: - Normal esophagus. - Normal stomach. - Plastic pancreatic stent in the duodenum. Removed. Recommendation: - [facility]. - Recall GI if needed. Mae Shea MD 03/16/2020 10:39:28 AM This report has been signed electronically. Note Initiated On: 03/16/2020 9:33 AM Number of Addenda: 0 I attest to the content of the Intraoperative Record and orders documented therein, exceptions below {[id number]}
--- NOTE | 2020-03-16 11:08 | Anesthesiology Progress Note ---
Date of Service March 16, 2020 Anesthesia Post Procedure Vital Signs Vital Signs: Temp Pulse Pulse Pulse Resp BP BP 03/16/20 11:00 36.5 C 116 H 16 99/76 L 03/16/20 10:50 114 H 17 97/72 L 03/16/20 10:41 36.3 C L 118 H 16 87/65 L 03/16/20 10:09 37 C 89 20 112/79 03/16/20 08:50 36.6 C 114 H 16 112/83 03/16/20 07:18 80 03/16/20 04:00 36.7 C 102 H 20 125/72 03/15/20 23:59 94 H 03/15/20 23:42 36.4 C L 89 21 112/81 03/15/20 18:31 36.8 C 88 18 125/87 03/15/20 14:49 36.8 C 99 H 16 118/83 03/15/20 14:20 104 H Pulse Ox 03/16/20 11:00 98 03/16/20 10:50 100 03/16/20 10:41 99 03/16/20 10:09 97 03/16/20 08:50 100 03/16/20 07:18 03/16/20 04:00 96 03/15/20 23:59 03/15/20 23:42 97 03/15/20 18:31 99 03/15/20 14:49 99 03/15/20 14:20 Transfer of Care Handoff Completed per policy Notes Mental Status: alert / awake / arousable and participated in evaluation Patient Amnestic to Procedure: Yes Nausea / Vomiting: adequately controlled Pain: adequately controlled Airway Patency, RR, SpO2: stable & adequate BP & HR: stable & adequate Hydration State: stable & adequate Anesthetic Complications: no major complications apparent and Pt Satisfied with anesthetic care
[2020-03-16] MEDS ORDERED: LORazepam 0.5 MG TAB PO STA (13:33)
[2020-03-16] MEDS: LORazepam 0.5 MG TAB PO PRN ×2 (16:54→22:56)
[2020-03-17] MEDS: metroNIDAZOLE 500 MG/100 ML BAG IV SCH ×2 (03:21→12:04)
[2020-03-17 07:07] LABS: Hematocrit (blood only) 33.8 % (37-47); Hemoglobin 11.7 g/dL (12.0-16.0); Mean Corpuscular Hemoglobin 32.5 pg (25-34); Mean Corpuscular Hgb Conc 34.6 g/dL (32-36); Mean Corpuscular Volume 93.9 fL (80-100); Mean Platelet Volume 10.2 fL (7.4-10.4); Platelet Count 147 K/uL (130-400); RDW Coefficient of Variation 15.1 % (11.5-14.5); RDW Standard Deviation 49.5 fL (36.4-46.3); White Blood Count 5.81 K/uL (4.8-10.8)
[2020-03-17 07:37] LABS: Calcium 9.2 mg/dl (8.5-10.1); Creatinine Clr Calc Pharmacy 114.6 ml/min; Est GFR (African American) 135.5; Est GFR (Non-African American) 116.9; Magnesium 1.9 mg/dl (1.8-2.4); Potassium 3.5 mmol/L (3.5-5.1)
--- NOTE | 2020-03-17 08:35 | Hospitalist Progress Note ---
Date of Service March 17, 2020 Assessment & Plan (1) Encephalopathy: Status post intubation at the ER Multifactorial : Polysubstance overdose secondary to suicidality (Bupropion, NSAID, gabapentin, hold levothyroxine prescription) Recurrent alcohol withdrawal seizures (threshold lowered by home Bupropion) Septic shock ? 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 coli, pansensitive Blood cultures 03/12/2020: 1 out of 2 bottles positive for coagulase staph not lugdunensis (likely contaminant) Blood cultures 03/14/2020: NGTD --Now afebrile, blood pressure stable Continued ceftriaxone , flagyl - plan to switch to PO today and continue for 3 more days Stopped daptomycin --[address] Psych consulted Patient cannot leave AMA Will need to transition to inpatient psychiatry unit when medically stable Seizure in the setting of drug overdose Neurology consulted, EEG obtained - no signs of convulsant activity, do not recommend anticonvulsants - recommend brain MRI - brain MRI unremarkable -Pt can not drive for 6 months, paperwork submitted to [facility] secondary to illness -- HCO3 drip discontinued History of acute pancreatitis, with pancreatic stricture and ductal leak --Status post pancreatic duct stent --Apparently patient has been lost to follow-up for ERCP with stent removal --GI consulted Now s/p plastic pancreatic duct stent removal (03/16/2020) --added Flagyl to cover anaerobes, cont. for 3 more days History of depression --Hold all psych meds -- Psych consulted, recommendations per #1 History opioid abuse as per records chronic anemia, hemoglobin better than baseline likely secondary to hemoconcentration -- Hg 11 --> 9 Anemia panel: Iron 71, vitamin B12 and folate normal chronic thrombocytopenia -- stable hypothyroidism, persistent TSH elevation from last admission, not currently on medications (inactive Levothyroxine prescription found on review of outpatient records) DVT prophylaxis with SCDs Re: Thrombocytopenia, fall risk Reevaluate daily Full code Disposition Transition to inpatient psych facility when medically stable Admission and Anticipated Discharge Date Admission Date: March 12, 2020 Subjective Pt seen in follow up of SA/ drug overdose and other med. problems. Pt s/p plastic pancreatic stent removal w/ GI. Currently watching TV, laughing, in NAD. Denies any fever, chills, chest pain, shortness of breath, abd. pain, nausea or vomiting. Asking about adhesive for her dentures. Review of Systems Review of Systems: All systems reviewed & are unremarkable except as noted in HPI & below Constitutional: no fever and no chills Respiratory: no cough and no dyspnea Cardiovascular: no chest pain and no palpitations Gastrointestinal: no abdominal pain, no nausea and no vomiting Physical Exam Physical Exam: General- alert and oriented, not in distress, speaks in sentences with no effort or accessory muscle use, breathing comfortably on RA Eyes- anicteric Neck- no JVD Lungs- clear breath sounds bilaterally, no rales/wheezes Heart- normal rate, regular rhythm; no murmurs Abdomen- normal bowel sounds, nondistended, soft, nontender Extremities- no pretibial edema, no calf tenderness Neuro- alert and oriented, answering questions appropriately; no gross focal neurologic deficits Skin- warm & dry Psych- somnolent, euthymic Results & Data Results & Data ([facility]) Vital Signs (Past 12 Hours) Vital Signs Temp Pulse Resp BP Pulse Ox 03/17/20 07:06 36.6 C 75 16 112/78 99 03/17/20 04:30 36.4 C L 90 16 113/78 100 03/16/20 23:27 36.6 C 78 16 110/73 99 Laboratory Results 03/17/20 03/17/20 03/13/20 Range/Units 06:32 06:32 05:07 WBC 5.81 (4.8-10.8) K/uL RBC 3.60 L (4.2-5.4) M/uL Hgb 11.7 L (12.0-16.0) g/dL Hct 33.8 L (37-47) % MCV 93.9 (80-100) fL MCH 32.5 (25-34) pg MCHC 34.6 (32-36) g/dL RDW Std Deviation 49.5 H (36.4-46.3) fL RDW Coeff of Meme 15.1 H (11.5-14.5) % Plt Count 147 (130-400) K/uL MPV 10.2 (7.4-10.4) fL Sodium 138 (136-145) mmol/L Potassium 3.5 (3.5-5.1) mmol/L Chloride 106 (98-107) mmol/L Carbon Dioxide 26 (21-32) mmol/L Anion Gap 6.0 (3-11) BUN 6 L (7-18) mg/dl Creatinine 0.66 (0.6-1.2) mg/dl Est Cr Clr Drug Dosing 114.6 ml/min Est GFR ( Amer) 135.5 Est GFR (Non-Af Amer) 116.9 BUN/Creatinine Ratio 9.0 L (10-20) Glucose 121 H (70-99) mg/dl Calcium 9.2 (8.5-10.1) mg/dl Phosphorus 3.0 D (2.5-4.9) mg/dl Magnesium 1.9 (1.8-2.4) mg/dl HCV RNA Qual (TMA) NOT DETECTED Medications Administered Current Inpatient Medications Enoxaparin Sodium (Enoxaparin Inj 30 Mg/0.3 Ml Syr) 30 mg SQ QAM [facility] Stop: 04/13/20 08:59 Last Admin: 03/16/20 09:20 Dose: Not Given Documented by: Lorazepam (Ativan) 1 mg in 2 mls @ 0.5 mls/min IV Q10M PRN PRN Reason: seizures Stop: 04/11/20 23:16 Last Admin: 03/15/20 21:36 Dose: 0.5 mls/min Documented by: Lorazepam (Ativan) 0.5 mg in 1 mls @ 1 mls/min IV Q2H PRN PRN Reason: RASS goal -1 Stop: 04/11/20 23:16 Lorazepam (Ativan) 1 mg in 2 mls @ 2 mls/min IV UD PRN; Protocol PRN Reason: EtOH Withdrawl AWSS Score 6,7 Stop: 04/12/20 17:17 Last Admin: 03/16/20 04:52 Dose: 2 mls/min Documented by: Lorazepam (Ativan) 2 mg in 4 mls @ 4 mls/min IV UD PRN; Protocol PRN Reason: EtOH Withdrawl AWSS Score 8,9 Stop: 04/12/20 17:17 Last Admin: 03/14/20 00:25 Dose: 4 mls/min Documented by: Lorazepam (Ativan) 3 mg in 6 mls @ 4 mls/min IV ONCE PRN; Protocol PRN Reason: EtOH Withdrawl AWSS Score >=10 Stop: 04/12/20 17:17 Ceftriaxone Sodium 1,000 mg/ (Dextrose) 50 mls @ 100 mls/hr IV Q24H [facility]; Protocol Stop: 03/28/20 09:59 Last Infusion: 03/16/20 09:55 Dose: Infused Documented by: Promethazine HCl 12.5 mg/ (Sodium Chloride) 50.5 mls @ 202 mls/hr IV Q6H PRN PRN Reason: Nausea And Vomiting Stop: 04/13/20 18:49 Last Infusion: 03/14/20 23:24 Dose: Infused Documented by: Metronidazole (Flagyl) 500 mg in 100 mls @ 100 mls/hr IV Q8H [facility] Stop: 03/24/20 19:59 Last Infusion: 03/17/20 04:25 Dose: Infused Documented by: Lorazepam (Lorazepam 0.5 Mg Tab) 0.5 mg PO ONE PRN PRN Reason: anxiety, prior to MRI Stop: 04/14/20 10:13 Last Admin: 03/15/20 10:47 Dose: 0.5 mg Documented by: Lorazepam (Lorazepam 0.5 Mg Tab) 0.5 mg PO Q6H PRN PRN Reason: Anxiety Stop: 04/15/20 13:32 Last Admin: 03/16/20 22:56 Dose: 0.5 mg Documented by: Miscellaneous (Remove Nicoderm Patch) 1 ea N/A DAILY@0859 [facility] Stop: 04/14/20 08:58 Last Admin: 03/16/20 09:24 Dose: 1 ea Documented by: Multivitamins (Multivitamin Tab) 1 tab PO QAM [facility] Stop: 04/12/20 08:59 Last Admin: 03/16/20 09:22 Dose: Not Given Documented by: Nicotine (Nicotine 14 Mg/24 Hr Patch) 14 mg TD QAM [facility] Stop: 04/14/20 00:54 Last Admin: 03/16/20 09:24 Dose: 14 mg Documented by: Potassium Chloride (Potassium Chloride 20 Meq/15 Ml Udc) 20 meq PO NOW STA Stop: 03/17/20 08:35
[2020-03-17] MEDS: cefTRIAXone SODIUM 1,000 MG in DEXTROSE 5% 50 ML IV SCH (08:36)
[2020-03-17] MEDS: ENOXAPARIN INJ 30 MG/0.3 ML SYR SQ SCH (08:37)
[2020-03-17] MEDS: NICOTINE 14 MG/24 HR PATCH TD SCH (08:37)
[2020-03-17] MEDS: MULTIVITAMIN TAB PO SCH (08:37)
[2020-03-17] MEDS: LORazepam 0.5 MG TAB PO PRN (08:44)
[2020-03-17] MEDS ORDERED: POTASSIUM CHLORIDE 20 MEQ/15 ML UDC PO ONE (09:00)
--- NOTE | 2020-03-17 11:44 | Discharge Summary ---
Date of Service March 17, 2020 Admission HPI Per Admitting Provider History obtained from family and records. Unable to obtain history from patient secondary to intubated state Medical history significant for mood disorder, history opioid abuse as per records, chronic anemia (baseline hemoglobin 8-9), chronic thrombocytopenia, hypothyroidism, history of alcohol withdrawal seizures, ongoing tobacco/alcohol abuse. Last confinement December 2019 for E. coli bacteremia. Patient discharged ciprofloxacin course. Patient broke up with her boyfriend a few days ago. Patient voiced suicidal intent as per patient's mother which patient does from time to time. Patient's mother got worried when patient was not picking up her phone the last 2 days. Patient's mother spoke to patient's ex-boyfriend who later found patient unresponsive and on the floor at patient's home. Empty bottles of bupropion, Advil, Gabapentin, iron supplement, and Levothyroxine found at patient's home along with a suicide note. Patient later witnessed to have generalized tonic-clonic seizures by EMS. Patient hypotensive upon arrival at the ER. Patient subsequently intubated. NSS bolus, cefepime, Levophed, and bicarb drip administered at the ER. 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 Admission Exam Per Admitting Provider GENERAL: Intubated, no respiratory distress SKIN: Pallor, cool HEENT: Pale palpebral conjunctivae, no ptosis, dry buccal mucosa, ETT in place NECK : Supple, no tenderness CHEST : Decreased breath sounds, no tenderness HEART : Tachycardic, no obvious murmurs ABDOMEN: Some distention, nontender EXTREMITIES : No LE swelling/tenderness, no other conspicuous deformities noted NEUROLOGIC : Unresponsive, dilated pupils, no facial asymmetry, no other gross focality Principal Diagnosis Drug overdose, suicidal attempt Seizure in the setting of overdose Depression Sepsis poss. d/t UTI, pancreatic stent AGMA Discharge Exam General- alert and oriented, not in distress, speaks in sentences with no effort or accessory muscle use, breathing comfortably on RA Eyes- anicteric Neck- no JVD Lungs- clear breath sounds bilaterally, no rales/wheezes Heart- normal rate, regular rhythm; no murmurs Abdomen- normal bowel sounds, nondistended, soft, nontender Extremities- no pretibial edema, no calf tenderness Neuro- alert and oriented, answering questions appropriately; no gross focal neurologic deficits Skin- warm & dry Psych- euthymic Discharge Data Allergies Allergy/AdvReac Type Severity Reaction Status Date / Time Penicillins Allergy Intermediate HIVES Verified 12/19/19 13:53 Consultations 03/12/20 20:55 ED Decision to Admit Stat 03/12/20 23:17 Consult Case Management - Discharge Planning Routine Consult Dental Tech Routine Consult Psychiatry Routine 03/12/20 23:43 Consult Behavioral Health Liaison Routine 03/13/20 01:28 Consult Neurology Routine 03/14/20 19:33 Consult Gastroenterology Routine Procedures Performed Operation Date: 03/16/20 09:15 Actual Procedures p Esophagogastroduodenoscopy - Mae Shea MD Ordered Studies 03/12/20 19:00 CT head/brain wo con Stat IMPRESSION: No acute intracranial findings. US point of care ultrasound Stat 03/15/20 09:45 MR brain wo con Routine IMPRESSION: 1. No acute intracranial abnormality. 2. Mild nonspecific hippocampal atrophy is unchanged from previous. Hospital Course (1) Encephalopathy: Status post intubation at the ER Multifactorial : Polysubstance overdose secondary to suicidality (Bupropion, NSAID, gabapentin, hold levothyroxine prescription) Recurrent alcohol withdrawal seizures (threshold lowered by home Bupropion) Septic shock ? Recurrent UTI , pancreatic stent not removed -- s/p Extubation 03/13/19 Weaned off Levophed drip -- electrolytes stable Dental Tech coordinated care with poison control --Mental status now improved, she is alert and oriented and conversant Continued to monitor MedSurg with telemetry - ok to dc from tele --Urine culture: + E. coli, pansensitive Blood cultures 03/12/2020: 1 out of 2 bottles positive for coagulase staph not lugdunensis (likely contaminant) Blood cultures 03/14/2020: NGTD --Now afebrile, blood pressure stable Continued ceftriaxone , flagyl - plan to switch to PO today and continue for 3 more days Stopped daptomycin --[address] Psych consulted Patient cannot leave AMA Will need to transition to inpatient psychiatry unit when medically stable Seizure in the setting of drug overdose Neurology consulted, EEG obtained - no signs of convulsant activity, do not recommend anticonvulsants - recommend brain MRI - brain MRI unremarkable -Pt can not drive for 6 months, paperwork submitted to [facility] AGMA secondary to illness -- HCO3 drip discontinued History of acute pancreatitis, with pancreatic stricture and ductal leak --Status post pancreatic duct stent --Apparently patient has been lost to follow-up for ERCP with stent removal --GI consulted Now s/p plastic pancreatic duct stent removal (03/16/2020) --added Flagyl to cover anaerobes, cont. for 3 more days History of depression --Hold all psych meds -- Psych consulted, recommendations per #1 History opioid abuse as per records chronic anemia, hemoglobin better than baseline likely secondary to hemoconcentration -- Hg 11 --> 9 Anemia panel: Iron 71, vitamin B12 and folate normal chronic thrombocytopenia -- stable hypothyroidism, persistent TSH elevation from last admission, not currently on medications (inactive Levothyroxine prescription found on review of outpatient records) DVT prophylaxis with SCDs Re: Thrombocytopenia, fall risk Reevaluate daily Full code Disposition Transition to inpatient psych facility when medically stable Total Time Total Time Spent Total Time Spent (In Minutes): 37 Total Time Includes: Examination of the Patient, Discharge Planning, Medication Reconciliation and Communication With Other Providers Discharge Plan Discharge Items Patient Disposition: Transfer Behavioral Health Fac Reason For Visit: HYPOTENSION Discharge Diagnosis: Drug overdose, suicidal attempt Seizure in the setting of overdose Depression Sepsis poss. d/t UTI, pancreatic stent AGMA Activity: Per Instructions section Activity Comment: Pt to be transferred to Inpt Psychiatry Unit Non-emergency contact: Primary Care Provider and Psychiatrist Call non-emergency contact if: you have any medication questions and your symptoms worsen Follow-up/Referrals: Nazario Perez MD [Primary Care Provider] - Diet: Regular Addtl Attending Provider Instructions: Pt to be transferred for further care to inpt psychiatry unit. Pt's psychiatric medications to be adjusted by psychiatry after discharge from medical service. Recommend Flagyl PO and Keflex PO for 3 more days. Pending Studies at Discharge: No Stand-Alone Forms: My [facility] Skilled Items DNR: No Lines: None Urinary Catheter: No Medications and DC Order Prescriptions: New multivitamin [Daily-Torrie] Tablet 1 tab PO QAM 30 Days Qty: 30 RF: 0 metronidazole 500 mg Tablet 500 mg PO Q8 3 Days Qty: 9 RF: 0 cephalexin 500 mg Capsule 500 mg PO BID 3 Days Qty: 6 RF: 0 nicotine 7 mg/24 hr Patch 24 Hour 14 mg transdermal QAM 7 Days RF: 0 Continued Effexor XR 150 mg 150 mg PO BID RF: 0 Wellbutrin SR 150 mg PO BID RF: 0 hydroxyzine pamoate 50 mg PO TID PRN (Reason: Anxiety) RF: 0 gabapentin 100 mg PO TID RF: 0 Discharge Orders: Discharge Order (Routine); Ordered 03/17/20 Ordered By: Cheo Hood Admission Data Admit Date/Time: 03/12/20 21:23 Attending Provider: Cheo Hood Admit Provider: Juan Miguel Velasquez Primary Care Provider: Nazario Perez Other Providers: Elijah Encarnacion ; Juan Miguel Velasquez ; Vasyl Cornejo ; Heriberto Davis ; Nancy Farooq ; Nelson Pa ; Jhon Townsend ; Kalpesh Sage ; Laura Perez ; Joby Duggan ; Chelsea Goodwin ; Heidi Ram ; Allyson Rojas ; Jose Juan Seaman I. ; Faiza Barrett ; Nathalie Garcia ; Monica Randhawa ; Roseann Mauricio ; Braydon Menchaca ; Roseann Bates ; Jack Wylie ; Mae Shea
[2020-03-18] MEDS ORDERED: metroNIDAZOLE 500 MG TAB PO SCH (06:00)
[2020-03-18] MEDS ORDERED: cephALEXin 500 MG CAP PO SCH (09:00)
== END 2020-03-17 13:25 | DRG 917 ==
LOC: ED 18:49 → SUATTDRO 21:23 → 1E 21:23 → 2W 03-14 09:45

== ENCOUNTER 2020-03-17 12:12 | Inpatient (IN) ==
[2020-03-17] MEDS ORDERED: ALUMINUM/MAGNESIUM SUSP 30 ML UDC PO PRN ×2 (12:21→15:32)
[2020-03-17] MEDS ORDERED: SODIUM CHLORIDE 0.65% NA SOLN 45 ML (OCEAN) PRN ×2 (12:21→15:32)
[2020-03-17] MEDS ORDERED: BISMUTH SUBSALICYLATE LIQD 236 ML PO PRN ×2 (12:21→15:32)
[2020-03-17] MEDS: hydrOXYzine HCl 25 MG TAB PO PRN (14:54)
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
[2020-03-17] MEDS ORDERED: MAGNESIUM HYDROXIDE SUSP 30 ML UDC PO PRN (15:32)
[2020-03-17] MEDS ORDERED: hydrOXYzine HCl 25 MG TAB PO PRN ×2 (15:32)
[2020-03-17] MEDS ORDERED: ACETAMINOPHEN 325 MG TAB PO PRN (15:32)
[2020-03-17] MEDS ORDERED: NICOTINE POLACRILEX 2 MG GUM MT PRN (15:32)
[2020-03-17] MEDS: ACETAMINOPHEN 325 MG TAB PO PRN (19:44)
[2020-03-17] MEDS: VENLAFAXINE HCL XR 150 MG CAPXR PO SCH (20:45)
[2020-03-17] MEDS: metroNIDAZOLE 500 MG TAB PO SCH (20:46)
[2020-03-17] MEDS ORDERED: buPROPion SR 150 MG TABCR PO SCH (21:00)
[2020-03-18] MEDS: ACETAMINOPHEN 325 MG TAB PO PRN ×3 (04:30→21:08)
--- NOTE | 2020-03-18 06:45 | Psychiatric Progress Note ---
Date of Service March 18, 2020 Impression / Recommendations Impression The patient is a 34-year-old woman with a complicated history including recurrent depression, multiple psychiatric hospitalizations, polysubstance dependence, extensive legal history (apparently involving current legal charges), complicated withdrawal, hypothyroidism, and recurrent alcoholic pancreatitis. She was unable to remain sober following her recent release from rehab 03/02, and reports heavy drinking, although her drug of choice is methamphetamine, alcohol is the only chemical substance that she has access to and can afford at present. She is admitted voluntarily after a vrey serious suicide attempt by polysubstance overdose that resulted in seizures, intubation and ICU admission. Inpatient treatment is medically necessary due to her serious suicide attempt and the risk for suicide if discharge prematurely. (1) Suicide attempt by drug overdose: 03/17/20 -The patient has been admitted to the [facility] behavioral health unit and is being closely observed on suicide precautions. She has been referred to, and will be actively encouraged to participate in, individual, group, and recreational therapy. We also plan to have family interventions with her parents and, possibly, her boyfriend. 03/18 - Scheduled meeting with mother and ex-boyfriend - Work on safety plan and review with them (2) Mood disorder: 03/17/20 -Patient reports that she has a long history of recurrent depressive episodes. Is not entirely clear that these episodes have ever occurred independent of her longstanding use of mood altering chemical substancesmost recently the depressant alcohol. -For now, we will continue her outpatient antidepressant medications including venlafaxine and bupropion and will adjust dosages as required. Current dosages: Venlafaxine 150 mg twice daily and bupropion SR 150 mg twice daily. 03/18 - Reviewed recent history and in light of seizures and ongoing alcohol abuse with multiple hospitalizations for withdrawal, will taper off bupropion due to lowering the seizure threshold and risk of seizure, as patient unlikely to maintain sobriety and unwilling to return to rehab. - Continue venlafaxine XR although reviewed with her that it also can lower the seizure threshold and that it should not be mixed with alcohol. Substance induced depression is most appropriate diagnosis given lack of period of sobriety w/ MDD symptoms, and primary intervention is to focus on sobriety. (3) Alcohol dependence: 03/17/20 -The patient acknowledges heavy use of alcohol and admits that she was highly intoxicated at the time of her alleged overdose. Her assertion is that she does not recall writing a suicide note or taking an overdose, and she says that it is hard for her to believe that she engaged in need of these behaviors because she has not been suicidal. However, the patient does acknowledge that it is possible because she was, as noted, drunk. -Her assertion is that she has a long history of using other chemical substances. Initially she said that she had not used cocaine, but later references a "crack dealer." She does acknowledge using opioid-based pain medications subsequent to becoming habituated through prescription opioid-based pain medications. She also notes that for a time she was taking Suboxone. Her reported drug of choice is methamphetamine. However, the patient insists that she has not used substances other than alcohol and any sort of regular basis for at least the past yearprimarily because she cannot afford them. -She was monitored on AWSS on the medical floor, and it was determined that she had completed withdrawal from alcohol AWSS was discontinued. -The patient notes that she would like to stop drinking and using illicit chemical substances, but recognizes that she has generally been unable to do so over the years. -The patient reportedly had 2 witnessed seizures at home, shortly before being transported to who the emergency department on 03/12/2020. It is not clear if these were withdrawal seizures (although the patient arrived in the emergency room with a blood alcohol level of 180.7) or toxic seizure from the apparent overdose. 03/18 - Again processed role of alcohol abuse in her depression and suicide attempt. She continues to refuse rehab. Explore options for IOP, and recommend a D&A shoe caser. (4) Encephalopathy: 03/17/20 -The patient appears to remain mildly encephalopathic. She, herself, says that she is aware that her mind is "a little jumbled up," and she recognizes that this is not her baseline. Record indicates that this has been improving and at this point we are not planning any intervention other than to monitor. -The patient was intubated in the emergency room and placed on a Levophed drip. She also had 2 witnessed grand mal seizures earlier on the day of admission. -Patient has been seen by neurology and anticonvulsants were not recommended. We are, however, continuing gabapentin 100 mg 3 times daily. 03/18 - Gabapentin was not actually continued on admission, and will not resume it due to the risk of abuse/misuse and unclear indication. (5) Gram-positive cocci bacteremia: 03/17/20 -Patient medical team is recommending continuing antibiotics for 3 more days, status post suspected urinary tract infection and status post intubation. Current dosages: Keflex 500 mg twice daily and Flagyl 500 mg 3 times daily. Risk Factors Assessment Male: No : Yes Do You Have Access To A Gun?: No (.) Health Problems: Yes Mental Health Diagnoses: Yes Substance Use Disorders: Yes Previous Attempt: Yes Previous Attempt; Highly Lethal: Yes Family History of Suicide: No Previous Psychiatric Hospitalization: Yes Hopelessness: No Smoker: Yes Protective Factors Assessment Alevism Beliefs: No : No Responsible for Young Children: No Employed: No Stable Relationships: No Supportive Family: Yes Good Rapport with Provider: No Interval History Identifying Information SUDHEER ALMARAZ is a 34-year-old F who currently lives in [place], [place] with her exboyfriend, has depression within the context of of polysubstance dependance. The patient was admitted on 03/17/20 13:25 on a 201 voluntary agreement for depression a further assessment of suicide risk. She had been hospitalized on the medical floor since 03/12/20 following a suicide attempt by overdose. Chief Complaint "A little better, my anxiety's through the roof". Review of Systems Sleep Information Total Hours of Sleep: 5.5 Meal Information Percent Meal Consumed - Dinner: 100 Subjective Subjective Patient was seen & assessed and interval progress reviewed with nursing and social work. Staff report she has been cooperative, eating and taking medications, and attending groups. On my assessment, she states that she is feeling "a little bit better," but continues to have constant anxiety, "and a lot of pain, on and off, just achy." She continues to express disbelief that she overdosed/attempted suicide, stating "it's just insane to me, still trying to wrap my head around it." She says she talked to her ex-boyfriend Chong, who she refers to as "just a good friend now," as well as her mother, and feels "they aren't telling me the whole story, they're holding something back." When asked why she thinks this, she says "because it's just not making sense, I took a bunch of pills and drank a bunch of liquor, and it's just not making sense." She says she is "been an alcoholic for the past year maybe," and recognizes that she needs to stop drinking in order to stabilize, but is unwilling to consider returning to rehab. She says that she thinks she "maybe just got out of rehab, I feel like I was just in rehab" prior to this hospitalization, but cannot recall where she went to rehab, the name of the rehab, or any other details about the treatment. She does not know if she was set up with any outpatient substance abuse treatment upon discharge. She reports longstanding problems with memory, and does not know if she is ever had any kind of neurological work- up. She denies current suicidal thoughts, but remains evasive regarding suicidality prior to admission. She states her goals are "to get medicine regularly and quit drinking," but cannot identify any ways to achieve these goals. Although she previously stated she had just been released from the [facility], she is now saying that was several years ago. She does not know what outpatient services she has, and does not think she has a shoe caser. She says she does not remember being told that she was intubated or had seizures while on the medical service, although this has been reviewed with her multiple times by multiple different clinicians. Physical Exam Psychiatric Orientation: alert and cooperative Apperance: appropriately dressed, appropriately groomed and appeared stated age Wearing make-up Eye Contact: + poor eye contact Motor Behavior: steady gait and station and no abnormal motor movements Speech: normal rate/rhythm/volume of speech Affect: + anxious affect; + mood not congruent with affect Especially when discussing her suicide attempt "Much better" Thought Process: goal directed thought process Thought Content: reality based without delusions Vague regarding events leading to admission/overdose, not necessarily forthcoming. Suicidal Thoughts: denies suicidal thoughts Homicidal Thoughts: denies homicidal thoughts Hallucinations: no auditory hallucinations Cognition: attention grossly intact and language grossly intact; + recent memory not intact and + remote memory not intact Estimated Intelligence: average estimated intelligence Insight: + poor insight Judgement: + poor judgement Vital Signs (Past 24 Hours) Last Vital Signs Temp 36.5 C 03/18/20 06:34 Pulse 99 H 03/18/20 06:32 Resp 18 03/18/20 06:32 BP 113/78 03/18/20 06:32 Results & Data ([facility] [place]) Current Inpatient Medications Current Inpatient Medications: Current Inpatient Medications Acetaminophen (Acetaminophen 325 Mg Tab) 650 mg PO Q4H PRN PRN Reason: Headache or Minor Fever Stop: 04/16/20 12:20 Last Admin: 03/18/20 04:30 Dose: 650 mg Documented by: Al Hydrox/Mg Hydrox/Simethicone (Aluminum/Magnesium Susp 30 Ml Udc) 30 ml PO Q4H PRN PRN Reason: GI Upset Stop: 04/16/20 12:20 Bismuth Subsalicylate (Bismuth Subsalicylate Liqd 236 Ml) 15 ml PO PRN PRN PRN Reason: Loose Stool Stop: 04/16/20 12:20 Bupropion HCl (Bupropion Sr 150 Mg Tabcr) 150 mg PO BID [facility] Stop: 04/16/20 20:59 Last Admin: 03/17/20 20:41 Dose: Not Given Documented by: Cephalexin HCl (Cephalexin 500 Mg Cap) 500 mg PO BID [facility] Stop: 03/21/20 21:01 Hydroxyzine HCl (Hydroxyzine Hcl 25 Mg Tab) 50 mg PO HSZ PRN PRN Reason: Insomnia Stop: 04/16/20 12:20 Hydroxyzine HCl (Hydroxyzine Hcl 25 Mg Tab) 25 mg PO Q4H PRN PRN Reason: Anxiety Stop: 04/16/20 12:20 Last Admin: 03/17/20 14:54 Dose: 25 mg Documented by: Hydroxyzine HCl (Hydroxyzine Hcl 25 Mg Tab) 50 mg PO TID PRN PRN Reason: Anxiety Stop: 04/16/20 16:08 Magnesium Hydroxide (Magnesium Hydroxide Susp 30 Ml Udc) 30 ml PO DAILY PRN PRN Reason: Constipation Stop: 04/16/20 12:20 Metronidazole (Metronidazole 500 Mg Tab) 500 mg PO TID [facility] Stop: 03/19/20 21:01 Last Admin: 03/17/20 20:46 Dose: Not Given Documented by: Miscellaneous (Remove Nicoderm Patch) 1 ea N/A DAILY@[id number] [facility] Stop: 04/17/20 08:58 Nicotine (Nicotine 14 Mg/24 Hr Patch) 14 mg TD QAM [facility] Stop: 04/17/20 08:59 Nicotine Polacrilex (Nicotine Polacrilex 2 Mg Gum) 1 piece MT PRN PRN PRN Reason: Nicotine Withdrawal Stop: 04/16/20 15:31 Last Admin: 03/17/20 16:15 Dose: 1 piece Documented by: Sodium Chloride (Sodium Chloride 0.65% Na Soln 45 Ml ([place])) 1 - 2 sprays NA PRN PRN PRN Reason: Nasal Dryness/Congestion Stop: 04/16/20 12:20 Venlafaxine HCl (Venlafaxine Hcl Xr 150 Mg Capxr) 150 mg PO BID [facility] Stop: 04/16/20 20:59 Last Admin: 03/17/20 20:45 Dose: 150 mg Documented by:
[2020-03-18] MEDS: VENLAFAXINE HCL XR 150 MG CAPXR PO SCH ×2 (09:09→20:20)
[2020-03-18] MEDS: NICOTINE 14 MG/24 HR PATCH TD SCH (09:09)
[2020-03-18] MEDS: metroNIDAZOLE 500 MG TAB PO SCH ×3 (09:09→20:19)
[2020-03-18] MEDS: buPROPion SR 150 MG TABCR PO SCH (09:10)
[2020-03-18] MEDS: hydrOXYzine HCl 25 MG TAB PO PRN ×4 (09:16→20:24)
[2020-03-18] MEDS: MAGNESIUM HYDROXIDE SUSP 30 ML UDC PO PRN (09:21)
[2020-03-18] MEDS: cephALEXin 500 MG CAP PO SCH (20:20)
[2020-03-19] MEDS: VENLAFAXINE HCL XR 150 MG CAPXR PO SCH ×2 (07:31→20:38)
[2020-03-19] MEDS: metroNIDAZOLE 500 MG TAB PO SCH ×3 (07:32→20:38)
[2020-03-19] MEDS: cephALEXin 500 MG CAP PO SCH ×2 (07:33→20:39)
[2020-03-19] MEDS: buPROPion SR 150 MG TABCR PO SCH (07:34)
[2020-03-19] MEDS: ACETAMINOPHEN 325 MG TAB PO PRN ×3 (07:41→17:45)
[2020-03-19] MEDS: NICOTINE 14 MG/24 HR PATCH TD SCH (08:43)
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
[2020-03-19] MEDS: hydrOXYzine HCl 25 MG TAB PO PRN ×3 (13:03→20:42)
[2020-03-19] MEDS: MAGNESIUM HYDROXIDE SUSP 30 ML UDC PO PRN (13:05)
[2020-03-20] MEDS: NICOTINE 14 MG/24 HR PATCH TD SCH (08:30)
[2020-03-20] MEDS: VENLAFAXINE HCL XR 150 MG CAPXR PO SCH ×2 (08:31→21:08)
[2020-03-20] MEDS: cephALEXin 500 MG CAP PO SCH ×2 (08:32→21:08)
[2020-03-20] MEDS: metroNIDAZOLE 500 MG TAB PO SCH (08:32)
--- NOTE | 2020-03-20 08:51 | Psychiatric Progress Note ---
Date of Service March 20, 2020 Impression / Recommendations Impression The patient is a 34-year-old woman with a complicated history including recurrent depression, multiple psychiatric hospitalizations, polysubstance dependence, extensive legal history (apparently involving current legal charges), complicated withdrawal, hypothyroidism, and recurrent alcoholic pancreatitis. She was unable to remain sober following her recent release from rehab 03/02, and reports heavy drinking, although her drug of choice is methamphetamine, alcohol is the only chemical substance that she has access to and can afford at present. She is admitted voluntarily after a vrey serious suicide attempt by polysubstance overdose that resulted in seizures, intubation and ICU admission. Inpatient treatment is medically necessary due to her serious suicide attempt and the risk for suicide if discharge prematurely. (1) Suicide attempt by drug overdose: 03/17/20 -The patient has been admitted to the [facility] behavioral health unit and is being closely observed on suicide precautions. She has been referred to, and will be actively encouraged to participate in, individual, group, and recreational therapy. We also plan to have family interventions with her parents and, possibly, her boyfriend. 03/18 - Scheduled meeting with mother and ex-boyfriend - Work on safety plan and review with them 03/19 - Patient indicates "friend" Chong will continue to live with her and will help monitor her medications. Strongly encourage increased level of care including a casework manager and IOP or PHP, but she is not willing to commit, talking about moving to [place] with [place]. 03/20 - Pt denies continued SI - Willing for a support meeting with [facility] to review safety/discharge planning (2) Mood disorder: 03/17/20 -Patient reports that she has a long history of recurrent depressive episodes. Is not entirely clear that these episodes have ever occurred independent of her longstanding use of mood altering chemical substancesmost recently the depressant alcohol. -For now, we will continue her outpatient antidepressant medications including venlafaxine and bupropion and will adjust dosages as required. Current dosages: Venlafaxine 150 mg twice daily and bupropion SR 150 mg twice daily. 03/18 - Reviewed recent history and in light of seizures and ongoing alcohol abuse with multiple hospitalizations for withdrawal, will taper off bupropion due to lowering the seizure threshold and risk of seizure, as patient unlikely to maintain sobriety and unwilling to return to rehab. - Continue venlafaxine XR although reviewed with her that it also can lower the seizure threshold and that it should not be mixed with alcohol. Substance induced depression is most appropriate diagnosis given lack of period of sobriety w/ MDD symptoms, and primary intervention is to focus on sobriety. 03/19 - Continue current medications, contact [facility] tomorrow to coordinate services, as patient thinks she was referred there for IOP. 03/20 - Continue current medication regimen - reviewed again the indication for discontinuation of bupropion. - Pt continues to deny SI - Coordinate aftercare appointments (3) Alcohol dependence: 03/17/20 -The patient acknowledges heavy use of alcohol and admits that she was highly intoxicated at the time of her alleged overdose. Her assertion is that she does not recall writing a suicide note or taking an overdose, and she says that it is hard for her to believe that she engaged in need of these behaviors because she has not been suicidal. However, the patient does acknowledge that it is possible because she was, as noted, drunk. -Her assertion is that she has a long history of using other chemical substances. Initially she said that she had not used cocaine, but later references a "crack dealer." She does acknowledge using opioid-based pain medications subsequent to becoming habituated through prescription opioid-based pain medications. She also notes that for a time she was taking Suboxone. Her reported drug of choice is methamphetamine. However, the patient insists that she has not used substances other than alcohol and any sort of regular basis for at least the past yearprimarily because she cannot afford them. -She was monitored on AWSS on the medical floor, and it was determined that she had completed withdrawal from alcohol AWSS was discontinued. -The patient notes that she would like to stop drinking and using illicit chemical substances, but recognizes that she has generally been unable to do so over the years. -The patient reportedly had 2 witnessed seizures at home, shortly before being transported to [facility] the emergency department on 03/12/2020. It is not clear if these were withdrawal seizures (although the patient arrived in the emergency room with a blood alcohol level of 180.7) or toxic seizure from the apparent overdose. 03/18 - Again processed role of alcohol abuse in her depression and suicide attempt. She continues to refuse rehab. Explore options for IOP, and recommend a D&A casework manager. 03/19 - Brief intervention was offered and accepted Intervention was greater than 5 min in length. Brief interventions include: 1. Assess Readiness to Quit, 2. Advise: Help Patient to Reduce or Abstain from Alcohol, 3. Agree: Set Specific, Feasible Goals, 4. Assist: Anticipate barriers, Problem-Solving Solutions. Social work to 5. Arrange: Referrals to appropriate treatment. Summary of intervention: The patient is in contemplation stage with regards to transtheoretical model of change. The patient is advised to decrease alcohol consumption due to depressant effects and risk of interactions with prescription medications. The patient agreed to IOP, and will be provided with recovery materials to continue to education self on how to cope with their condition without drinking. -Start recovery protocol, and refer for D & A casework manager and IOP tomorrow. (4) Encephalopathy: 03/17/20 -The patient appears to remain mildly encephalopathic. She, herself, says that she is aware that her mind is "a little jumbled up," and she recognizes that this is not her baseline. Record indicates that this has been improving and at this point we are not planning any intervention other than to monitor. -The patient was intubated in the emergency room and placed on a Levophed drip. She also had 2 witnessed grand mal seizures earlier on the day of admission. -Patient has been seen by neurology and anticonvulsants were not recommended. We are, however, continuing gabapentin 100 mg 3 times daily. 03/18 - Gabapentin was not actually continued on admission, and will not resume it due to the risk of abuse/misuse and unclear indication. (5) Gram-positive cocci bacteremia: 03/17/20 -Patient medical team is recommending continuing antibiotics for 3 more days, status post suspected urinary tract infection and status post intubation. Current dosages: Keflex 500 mg twice daily and Flagyl 500 mg 3 times daily. Risk Factors Assessment Male: No : Yes Do You Have Access To A Gun?: No (.) Health Problems: Yes Mental Health Diagnoses: Yes Substance Use Disorders: Yes Previous Attempt: Yes Previous Attempt; Highly Lethal: Yes Family History of Suicide: No Previous Psychiatric Hospitalization: Yes Hopelessness: No Smoker: Yes Protective Factors Assessment Baptism Beliefs: No : No Responsible for Young Children: No Employed: No Stable Relationships: No Supportive Family: Yes Good Rapport with Provider: No Interval History Identifying Information SUDHEER ALMARAZ is a 34-year-old F who currently lives in [place], [place] with her exboyfriend, has depression within the context of of polysubstance dependance. The patient was admitted on 03/17/20 13:25 on a 201 voluntary agreement for depression a further assessment of suicide risk. She had been hospitalized on the medical floor since 03/12/20 following a suicide attempt by overdose. Chief Complaint "Um, I'm doing pretty good actually." Review of Systems Notes Constitutional: denied Cardiovascular: denied Respiratory: denied Gastrointestinal: denied Neurological: denied Psychiatric: denies symptoms other than stated above Total of at least 10 systems reviewed, pertinent positives as above and in HPI. Sleep Information Total Hours of Sleep: 7.5 Meal Information Percent Meal Consumed - Breakfast: 80 Percent Meal Consumed - Lunch: 100 Percent Meal Consumed - Dinner: 100 Subjective Subjective Patient was seen & assessed and interval progress reviewed with treatment team. Staff report the patient has been participating in group programming and contributing with meaningful content. She has denied SI to stay and has maintained that she does not remember many of the events prior to her overdose and hospital admission. The patient was seen today to assess progress since admission. The patient states she is doing "pretty good." She states that "aside from getting appointments in place, I'm almost feeling ready to go." We reviewed plan that patient continue bridge appointments with her current psychiatrist, but agreed to transition to [facility] for therapy and eventually medication management. The patient was also encouraged to consider a support meeting - after sleeping through a scheduled meeting yesterday afternoon with a friend. The patient admitted she did not want to overwhelm her mother further and did not think a meeting was going to be helpful. After offering the patient an explanation of perceived benefits with regard to safety and discharge planning, the patient ultimately agree to scheduling a meeting with her friend prior to discharge. The patient continues to deny SI but was understanding of desire to ensure her outpatient appointments are in place prior to our treatment team recommending discharge. The patient denied other needs or concerns at this time. Physical Exam Psychiatric Orientation: alert, oriented x 3 and cooperative (superficially) Apperance: appropriately dressed, appropriately groomed and appeared stated age Eye Contact: + fair eye contact Motor Behavior: steady gait and station and no abnormal motor movements Speech: normal rate/rhythm/volume of speech Affect: + blunted affect (subdued, mildly irritable affect); no depressed affect and no anxious affect Mood: no depressed mood ("pretty good") Thought Process: goal directed thought process and clear/coherent thought process Thought Content: reality based without delusions; no hopelessness and no worthlessness Suicidal Thoughts: denies suicidal thoughts Homicidal Thoughts: denies homicidal thoughts Hallucinations: no auditory hallucinations and no visual hallucinations Cognition: attention grossly intact and language grossly intact Estimated Intelligence: consistent with education level Insight: + fair insight Judgement: + fair judgement Vital Signs (Past 24 Hours) Last Vital Signs Temp 36.9 C 03/20/20 06:42 Pulse 82 03/20/20 06:42 Resp 17 03/20/20 06:42 BP 112/78 03/20/20 06:42 Results & Data ([facility] [[email or web address]]) Current Inpatient Medications Current Inpatient Medications: Current Inpatient Medications Acetaminophen (Acetaminophen 325 Mg Tab) 650 mg PO Q4H PRN PRN Reason: Headache or Minor Fever Stop: 04/16/20 12:20 Last Admin: 03/19/20 17:45 Dose: 650 mg Documented by: Al Hydrox/Mg Hydrox/Simethicone (Aluminum/Magnesium Susp 30 Ml Udc) 30 ml PO Q4H PRN PRN Reason: GI Upset Stop: 04/16/20 12:20 Bismuth Subsalicylate (Bismuth Subsalicylate Liqd 236 Ml) 15 ml PO PRN PRN PRN Reason: Loose Stool Stop: 04/16/20 12:20 Bupropion HCl (Bupropion Sr 150 Mg Tabcr) 150 mg PO QAM LINDSAY Stop: 03/20/20 08:59 Last Admin: 03/19/20 07:34 Dose: 150 mg Documented by: Cephalexin HCl (Cephalexin 500 Mg Cap) 500 mg PO BID LINDSAY Stop: 03/21/20 21:01 Last Admin: 03/20/20 08:32 Dose: 500 mg Documented by: Hydroxyzine HCl (Hydroxyzine Hcl 25 Mg Tab) 50 mg PO HSZ PRN PRN Reason: Insomnia Stop: 04/16/20 12:20 Last Admin: 03/19/20 20:42 Dose: 50 mg Documented by: Hydroxyzine HCl (Hydroxyzine Hcl 25 Mg Tab) 50 mg PO TID PRN PRN Reason: Anxiety Stop: 04/16/20 16:08 Last Admin: 03/19/20 17:46 Dose: 50 mg Documented by: Magnesium Hydroxide (Magnesium Hydroxide Susp 30 Ml Udc) 30 ml PO DAILY PRN PRN Reason: Constipation Stop: 04/16/20 12:20 Last Admin: 03/19/20 13:05 Dose: 30 ml Documented by: Metronidazole (Metronidazole 500 Mg Tab) 500 mg PO TID [facility] Stop: 03/20/20 09:01 Last Admin: 03/20/20 08:32 Dose: 500 mg Documented by: Miscellaneous (Remove Nicoderm Patch) 1 ea N/A DAILY@[id number] [facility] Stop: 04/17/20 08:58 Last Admin: 03/20/20 08:34 Dose: Not Given Documented by: Nicotine (Nicotine 14 Mg/24 Hr Patch) 14 mg TD QAM [facility] Stop: 04/17/20 08:59 Last Admin: 03/20/20 08:30 Dose: 14 mg Documented by: Nicotine Polacrilex (Nicotine Polacrilex 2 Mg Gum) 1 piece MT PRN PRN PRN Reason: Nicotine Withdrawal Stop: 04/16/20 15:31 Last Admin: 03/17/20 16:15 Dose: 1 piece Documented by: Sodium Chloride (Sodium Chloride 0.65% Na Soln 45 Ml ([place])) 1 - 2 sprays NA PRN PRN PRN Reason: Nasal Dryness/Congestion Stop: 04/16/20 12:20 Venlafaxine HCl (Venlafaxine Hcl Xr 150 Mg Capxr) 150 mg PO BID [facility] Stop: 04/16/20 20:59 Last Admin: 03/20/20 08:31 Dose: 150 mg Documented by: Mental Health & Subst Abuse Tx Psychiatrist Name of Psychiatrist: [facility] - Dr. Polk Psychiatrist's Date of Appointment with Psychiatrist: 03/27/20 Time of Appointment with Psychiatrist: 11:00 a.m. Psychiatric Appointment Comment: [address] [address], [address], [place] [address] Therapist Name of Therapist: none Profile Grinder Name of Profile Grinder: none, willing to consider Post Discharge Appointments Primary Care Physician Name Of Family Doctor: Laura Primary Care Provider Appointment Comment: [address] [place] [address] Contact Information Discharge Discharge Address: [address] [place] [address]
[2020-03-20] MEDS: ACETAMINOPHEN 325 MG TAB PO PRN ×2 (13:36→21:09)
[2020-03-20] MEDS: hydrOXYzine HCl 25 MG TAB PO PRN ×3 (13:36→21:09)
[2020-03-21] MEDS: VENLAFAXINE HCL XR 150 MG CAPXR PO SCH (07:50)
[2020-03-21] MEDS: cephALEXin 500 MG CAP PO SCH (07:50)
[2020-03-21] MEDS: NICOTINE 14 MG/24 HR PATCH TD SCH (07:50)
--- NOTE | 2020-03-21 11:37 | Discharge Summary ---
Date of Service March 21, 2020 History of Present Illness The patient is a 34-year-old woman who was brought to the emergency department by emergency medical transport on 03/12/2020 after an apparent intentional drug overdose at home. The patient reports that she has a long history of depression, and also admits to a long history of chemical substance abuse. She notes that her drug of choice is methamphetamine, but that she has not been able to afford to buy with amphetamine for approximately a year. She makes reference to the use of other drugs, including opioids and crack cocaine," but seems to minimize her use of these drugs. She also admits to heavy drinking, and has a known history of alcoholic pancreatitis and alcohol withdrawal complicated by grand mall seizures. According to the record, the police had responded to her home, and had found the patient unconscious but breathing. Subsequent to her being transferred by EMT to the hospital's emergency department her case loader operator discovered a bottle that had been filled with 60 tablets on 11/27/2019, with 38 tablets missing. There is also a nearly empty bottle of ibuprofen with approximately 192 pills missing. Further, there was an empty bottle of gabapentin on an empty bottle of levothyroxine. A bottle of iron supplements that had once contained 190 tablets was found with 42 tablets remaining, and next to the empty or partially empty pill bottles was a vaguely worded note, apparently written by the patient, that began by noting the fact that she was drunk and include language that suggested possible suicidal intent. The patient's toxicology screen was positive for MDMA (possibly explained by her use of bupropion), and her blood alcohol level was 180.7. Patient was tachycardic, hypotensive, and poorly responsive. While awaiting emergency transport from home to the hospital the patient had two witnessed grand mal seizures. She reportedly has a past history of complicated alcohol withdrawal. She was also diagnosed with gram-positive bacteremia and started on IV antibiotics. The patient was subsequently transferred to medical floor where she was actively treated, monitored and treated for withdrawal, stabilized medically, and referred to psychiatry. Further complicating the clinical picture is the patient's history of recurrent alcoholic pancreatitis and an indwelling pancreatic shunt. Upon regaining consciousness, the patient denied recalling being suicidal, and at the time of her admission evaluation on the psychiatric service the patient said that she is confused by the reports that she had left a suicide note and taken medication overdoses because, while she has suffered from recurrent depressions for years, she does not recall ever having made a suicide attempt. However, in short order, the patient had reference to multiple past suicide attempts, primarily during adolescence and in her early 20s. She also references multiple psychiatric admissions to [place]. Further, the patient reports that she was recently in a chemical dependency rehab facility and was released "I want to say about a month ago." Collateral information indicates that she was in a residential treatment program from February 03 until March 02, 2020. Also, a possible precipitating factor is that the patient has an extensive legal history including arrest and possible convictions for felony theft (apparently multiple episodes of shoplifting), as well as multiple arrests for driving while under the influence of alcohol and/or other drugs. She says that she "thinks" that she has current charges pending, although she says she cannot remember for sure what the charges are and adds that her "loan documents closer is handling it." She does think that she has an upcoming hearing and notes that imprisonment may be a consequence. It is supposed that serious criminal charges that the patient suggests are pending may have been a contributory factor in the patient's overdose. Physical Exam Psychiatric Orientation: alert, oriented x 3 and cooperative Apperance: appropriately dressed, appropriately groomed and appeared stated age Eye Contact: + poor eye contact Motor Behavior: steady gait and station and no abnormal motor movements Speech: normal rate/rhythm/volume of speech (Mildly irritable tone) Euthymic with an irritable edge "Fine." Thought Process: goal directed thought process Thought Content: reality based without delusions (Focused on her desire for discharge) Suicidal Thoughts: denies suicidal thoughts Homicidal Thoughts: denies homicidal thoughts Hallucinations: no auditory hallucinations and no visual hallucinations Cognition: attention grossly intact; + recent memory not intact (States she is unable to recall events for 1 to 2 weeks prior to admission, ) Estimated Intelligence: average estimated intelligence Insight: + poor insight Judgement: + poor judgement Vital Signs (Past 24 Hours) Last Vital Signs Temp 36.5 C 03/21/20 11:19 Pulse 82 03/21/20 11:19 Resp 16 03/21/20 11:19 BP 112/67 03/21/20 11:19 Pulse Ox 75 L 03/21/20 11:19 Principal Diagnosis Suicide attempt by polydrug overdose Depression NOS (MDD versus substance-induced depression) Alcohol dependence Psychiatric Data The patient was hospitalized on the [facility] for 4 days. She was initially hospita lized medically for 4 days for treatment related to overdose on alcohol and multiple prescription medications, including hydroxyzine, bupropion, gabapentin, levothyroxine, iron supplements, Advil, and possibly others. She was seen by psychiatric consultation service and inpatient treatment recommended once medically stabilized. She transferred to the [facility] on a voluntary commitment. All of her psychotropic medications were held on the medical floor, and on transfer to our unit, she was resumed on venlafaxine XR, hydroxyzine as needed, and bupropion. After review of her records and neurology recommendations, bupropion was tapered off due to severe and persistent alcohol abuse with multiple hospitalizations for alcohol withdrawal and increased seizure risk, given multiple seizures on presentation. She was continued on venlafaxine XR and hydroxyzine as needed, and tolerated them well. Inpatient rehab was recommended to address alcohol dependence, but she refused. She did agree to referral for outpatient treatment at [facility], and was referred to [facility] for a substance abuse case loader operator. She was a poor historian, was unable to provide information about the events of the past several weeks. She said she thought she had recently been released from rehab around the holidays, but could not recall the name of the rehab, where it was, or when she was there. She initially denied that she had been set up with any outpatient services, but later said she had services arranged, but did not follow through with any of them, and immediately relapsed and was drinking daily and heavily. She could not recall the events of the week prior to presentation, and although her mother and ex-boyfriend said that she and her ex-boyfriend had gone to [place] and spent time there, she had no memory of this. She said that she did not recall taking the overdose or writing suicide notes. She said she did not recall any of the information she had been given on the medical service, including that she had seizures when she came to the hospital, that she had seen neurology and been told she could not drive for at least 6 months, or that she had been so ill as a result of her overdose that she had to be intubated. This information was reviewed with her on multiple occasions, and each time she acted as if she had not heard it before. She reported longstanding problems with memory, but did not know if she had ever had a neurological work-up. She denied suicidal thoughts throughout her hospitalization, but was vague and evasive regarding discharge plans and her social situation. She would agree to have discharge planning meetings with her mother and/or ex-boyfriend, but always refused to sign the release when staff approached her to schedule said meetings. At one point she called her mother, and said that her mother did not want to be involved and was "praying." She said she had been talking to her ex-boyfriend, and that although it had previously been reported that they had broken up and he had moved around, that he was going to continue to live with her and provide support after discharge. She said that he wanted to assist by securing medications and giving them to her daily to ensure that she was taking them appropriately. She said that they planned to "vacation" in [place] after discharge, and may eventually move there, depending on the outcome of her criminal charges. Day of Discharge Assessment Staff report the patient attended and participated in groups, reported improved mood and anxiety, and continues to deny suicidal thoughts. She is scheduled to follow-up with her new case loader operator this afternoon, has an intake at [facility], and sees both her PCP and outpatient psychiatrist on 03/27/2020. She had a discharge planning meeting with the social media manager and her ex-boyfriend, Chong, today; the meeting was limited as the patient wanted to focus only on discharge/safety plan. Chong confirmed that there are no weapons in the home, no medications as he gave them all to the police, that he would assist with medication management, and denied safety concerns with discharge. He agreed to pick the patient up. On my assessment, the patient states her mood is "much better," and she is looking forward to discharge. She states that neither she nor her ex-boyfriend work, and spends her time traveling back and forth between [place] in [place] to visit his friends and family. She is agreeing to follow-up with outpatient treatment, and again reviewed the recommendations not to drive, and she expressed surprise, stating she did not recall being told this previously in her hospitalization. She states she does not have a current sulky driver's license, and has multiple DUIs charges. We again reviewed the importance of maintaining sobriety and following up with substance abuse treatment, and that if she is unable to maintain sobriety, inpatient rehab is indicated. She denies any safety concerns with discharge. Transition of Care Transition Of Care Record: was reviewed with the patient Advance Directives Advance Directives Information Provided: Yes Advance Directives: No Mental Health Advance Directive: No Advance Directives on File: No Living Will: No Power of Size Maker: No Advance Directives Reason:: Declines as Mental Health Visit. Risk Factors Assessment Risk factors mitigated by admission to the inpatient unit, use of medication to target mood symptoms, discontinuing medications where risks outweigh benefits (including bupropion and gabapentin), education about her diagnoses and the recommended treatment, recommending inpatient rehab due to severity of alcohol abuse, which she refused, review of recommendations not to drive for 6 months due to recent seizures, coordination with outpatient clinician (Dr. Polk's office), referring her for outpatient substance abuse treatment and case management, attending groups and therapy and working on healthy coping skills and discharge safety plan, and discharge planning meeting with her friend whom she lives with. She has demonstrated improvement in mood, has consistently denied suicidal thoughts, has not been violent or aggressive here, and is performing ADLs independently. She is eating and sleeping well, and is requesting discharge. As she is no longer at acute risk of harm to herself, she can be managed as an outpatient at this time. She is a chronic increased risk for harm to herself and others compared to the general population, but remaining risk factors are not likely to be mitigated by further inpatient treatment. Male: No : Yes Do You Have Access To A Gun?: No (.) Health Problems: Yes Mental Health Diagnoses: Yes Substance Use Disorders: Yes Previous Attempt: Yes Previous Attempt; Highly Lethal: Yes Previous Attempt; Didn't Tell Anyone: Yes Family History of Suicide: No Previous Psychiatric Hospitalization: Yes Hopelessness: No Smoker: Yes Protective Factors Assessment Buddhism Beliefs: No : No Responsible for Young Children: No Employed: No Stable Relationships: No Supportive Family: Yes Good Rapport with Provider: No Tobacco Cessation at Discharge Tobacco Cessation Medication Prescribed at Discharge: Offered & Pt Refused Practical counseling provided including: recognizing danger situations, developing coping skills and providing basic information about quitting Tobacco Cessation Outpatient Followup: Outpatient referral made to ([facility]) Total Time Total Time Spent: Greater Than 30 Minutes Total Time Includes: Examination of the patient, Discharge Planning, Medication Reconciliation and Communication with other providers Hospital Course (1) Suicide attempt by drug overdose: 03/17/20 -The patient has been admitted to the [facility] unit and is being closely observed on suicide precautions. She has been referred to, and will be actively encouraged to participate in, individual, group, and recreational therapy. We also plan to have family interventions with her parents and, possibly, her boyfriend. 03/18 - Scheduled meeting with mother and ex-boyfriend - Work on safety plan and review with them 03/19 - Patient indicates "friend" Chong will continue to live with her and will help monitor her medications. Strongly encourage increased level of care including a case loader operator and IOP or PHP, but she is not willing to commit, talking about moving to [place] with Chong. 03/20 - Pt denies continued SI - Willing for a support meeting with Chong to review safety/discharge planning 03/21 -Discharge planning meeting held with her friend/ex-boyfriend, Chong, whom she lives with; he confirmed no access to guns, weapons, or large amounts of medications at home, and denied acute safety concerns. (2) Depression: Depression NOS - MDD vs substance induced depression 03/17/20 -Patient reports that she has a long history of recurrent depressive episodes. Is not entirely clear that these episodes have ever occurred independent of her longstanding use of mood altering chemical substancesmost recently the depressant alcohol. -For now, we will continue her outpatient antidepressant medications including venlafaxine and bupropion and will adjust dosages as required. Current dosages: Venlafaxine 150 mg twice daily and bupropion SR 150 mg twice daily. 03/18 - Reviewed recent history and in light of seizures and ongoing alcohol abuse with multiple hospitalizations for withdrawal, will taper off bupropion due to lowering the seizure threshold and risk of seizure, as patient unlikely to maintain sobriety and unwilling to return to rehab. - Continue venlafaxine XR although reviewed with her that it also can lower the seizure threshold and that it should not be mixed with alcohol. Substance induced depression is most appropriate diagnosis given lack of period of sobriety w/ MDD symptoms, and primary intervention is to focus on sobriety. 03/19 - Continue current medications, contact [facility] tomorrow to coordinate services, as patient thinks she was referred there for IOP. 03/20 - Continue current medication regimen - reviewed again the indication for discontinuation of bupropion. - Pt continues to deny SI - Coordinate aftercare appointments 03/21 -Patient states she has no medications left at home, confirmed with friend whom she lives with who denies that there are any prescription medications in the residence. Will prescribe 1 weeks worth of venlafaxine XR and hydroxyzine 50 mg 3 times daily as needed, in order to limit her access to large amounts of medications. She sees her psychiatrist Dr. Polk in 6 days, who can then issue prescriptions moving forward. Called and spoke to Dr. Polk's office staff to provide brief information re: her hospitalization and the medication changes that were made, and advised that records were being sent. (3) Alcohol dependence: 03/17/20 -The patient acknowledges heavy use of alcohol and admits that she was highly intoxicated at the time of her alleged overdose. Her assertion is that she does not recall writing a suicide note or taking an overdose, and she says that it is hard for her to believe that she engaged in need of these behaviors because she has not been suicidal. However, the patient does acknowledge that it is possible because she was, as noted, drunk. -Her assertion is that she has a long history of using other chemical substances. Initially she said that she had not used cocaine, but later references a "crack dealer." She does acknowledge using opioid-based pain medications subsequent to becoming habituated through prescription opioid-based pain medications. She also notes that for a time she was taking Suboxone. Her reported drug of choice is methamphetamine. However, the patient insists that she has not used substances other than alcohol and any sort of regular basis for at least the past yearprimarily because she cannot afford them. -She was monitored on AWSS on the medical floor, and it was determined that she had completed withdrawal from alcohol AWSS was discontinued. -The patient notes that she would like to stop drinking and using illicit chemical substances, but recognizes that she has generally been unable to do so over the years. -The patient reportedly had 2 witnessed seizures at home, shortly before being transported to [facility] the emergency department on 03/12/2020. It is not clear if these were withdrawal seizures (although the patient arrived in the emergency room with a blood alcohol level of 180.7) or toxic seizure from the apparent overdose. 03/18 - Again processed role of alcohol abuse in her depression and suicide attempt. She continues to refuse rehab. Explore options for IOP, and recommend a D&A case loader operator. 03/19 - Brief intervention was offered and accepted Intervention was greater than 5 min in length. Brief interventions include: 1. Assess Readiness to Quit, 2. Advise: Help Patient to Reduce or Abstain from Alcohol, 3. Agree: Set Specific, Feasible Goals, 4. Assist: Anticipate barriers, Problem-Solving Solutions. Social work to 5. Arrange: Referrals to appropriate treatment. Summary of intervention: The patient is in contemplation stage with regards to transtheoretical model of change. The patient is advised to decrease alcohol consumption due to depressant effects and risk of interactions with prescription medications. The patient agreed to IOP, and will be provided with recovery materials to continue to education self on how to cope with their condition without drinking. -Start recovery protocol, and refer for D & A case loader operator and IOP tomorrow. 03/21 -Patient refused recommendations for inpatient substance abuse treatment, but ag daniela to a referral to [facility] for IOP. She was also referred to [facility] for a D&A case loader operator (Ara Pearson). -No driving for at least 6 months due to seizures and ongoing substance abuse. -Avoid prescription of medications that are addictive or abusable due to the high risk of abuse/misuse/negative outcomes. (4) Encephalopathy: 03/17/20 -The patient appears to remain mildly encephalopathic. She, herself, says that she is aware that her mind is "a little jumbled up," and she recognizes that this is not her baseline. Record indicates that this has been improving and at this point we are not planning any intervention other than to monitor. -The patient was intubated in the emergency room and placed on a Levophed drip. She also had 2 witnessed grand mal seizures earlier on the day of admission. -Patient has been seen by neurology and anticonvulsants were not recommended. We are, however, continuing gabapentin 100 mg 3 times daily. 03/18 - Gabapentin was not actually continued on admission, and will not resume it due to the risk of abuse/misuse and unclear indication. (5) Gram-positive cocci bacteremia: 03/17/20 -Patient medical team is recommending continuing antibiotics for 3 more days, status post suspected urinary tract infection and status post intubation. Current dosages: Keflex 500 mg twice daily and Flagyl 500 mg 3 times daily. Mental Health & Subst Abuse Tx Psychiatrist Name of Psychiatrist: [facility] - Dr. Polk Psychiatrist's Date of Appointment with Psychiatrist: 03/27/20 Time of Appointment with Psychiatrist: 11:00 a.m. Psychiatric Appointment Comment: [address] [place] [address], [facility] [address], [address], [place] [address] Therapist Name of Therapist: [facility] - Intake for D&A therapy and psychiatry - [facility] Therapist's Date of Therapist Appointment: 03/23/20 Time of Therapist Appointment: 2:00 p.m. Therapy Appointment Comment: Telehealth - will email you directions Guest Associate Name of Guest Associate: [facility] Phone Number for Guest Associate: [phone] / [phone] Date of Appointment with Guest Associate: 03/21/20 Time of Appointment with Guest Associate: 1:00 p.m. Case Management Appointment Comment: Will call you to check in & complete assessment Post Discharge Appointments Primary Care Physician Name Of Family Doctor: Dr Ana Sanchez Primary [facility] Date of Appointment with PCP: 03/27/20 Time of Appointment with PCP: 0900-appt with Dr. Islas Provider Appointment Comment: [address] [place] [id number] Smoking Cessation Counseling Tobacco Cessation Medication Prescribed at Discharge: Offered & Pt Refused Contact Information Discharge Discharge Address: [address] [place] [id number] Discharge Plan Discharge Items Patient Disposition: Home - Self-Care Reason For Visit: polydrug overdose/suicide attempt Discharge Diagnosis: Depression NOS Alcohol dependence Status post suicide attempt by polydrug overdose Activity: Per Instructions section Driving/Machine Use: No driving for at least 6 months due to seizures Non-emergency contact: Primary Care Provider, Therapist and Varnish Finisher Call non-emergency contact if: you have any medication questions Follow-up/Referrals: Nazario Perez MD [Primary Care Provider] - 03/27/20 9:00 am (Appt with Dr. Islas) Diet: Regular Addtl Attending Provider Instructions: SPECIAL CARE INSTRUCTIONS: You were hospitalized medically in the ICU after overdose on alcohol and multiple prescription medications. You were very ill, and had to be intubated. You had multiple seizures, so medications that can lower the seizure threshold (Wellbutrin) were discontinued. You were seen by neurology and gastroenterology while on the medical service. The primary recommendation was for inpatient rehab to address your alcoholism, which you declined. 1. Follow through with your scheduled aftercare appointments. If unable to keep an appointment, please call to reschedule. Inpatient rehab was recommended to address alcoholism, but you declined. Follow-up with outpatient substance abuse treatment at [facility]. You have also been referred for a substance abuse case loader operator, Ara Pearson. 2. Take your medication only as prescribed. Medication should not be changed or stopped without the approval of your doctor. In the event of worsening symptoms or concerns about side effects, contact your doctor immediately. Wellbutrin was discontinued due to the risk of seizures, as you had seizures after your overdose. Alcohol use increases the risk of seizures as well. Due to your seizures and alcohol abuse, you cannot drive. You will need to be stable and sober, no seizures for at least 6 months, and be re-evaluated by your physician before you can be cleared to drive. 3. Utilize new healthy coping skills, anger management skills, and stress management skills learned during your hospitalization. Journal feelings and process them with a support person. Identify stressors or situations that may result in relapse, deterioration or inappropriate behaviors and develop a plan to deal with those issues. 4. If your coping skills are ineffective and you are in crisis, contact your outpatient providers for direction. If unable to reach your providers, please call the [facility] CRISIS LINE AT , go to the [facility] walk-in center at [address], [address], [place], or go to the closest Emergency Room. 5. Avoid alcohol and un-prescribed drugs. 6. You have been provided with the Mental Health Advance Directives Pamphlet for your review. AFTERCARE APPOINTMENTS: * Please call your insurance company prior to your scheduled appointment to confirm your aftercare providers are covered. Take your insurance information to your appointments. WHO TO CALL AND WHEN: Medical Emergencies: For questions or emergencies related to your hospital stay, please contact the Inpatient Behavioral Health Unit at [phone]. A mine promotor is on-call 30/09 for the Behavioral Health Unit for emerg encies At any time you feel your situation is an emergency, you may also call 911 immediately. Pending Studies at Discharge: No Stand-Alone Forms: My [facility], Smoking Cessation Medications and DC Order Prescriptions: Continued thiamine HCl (vitamin B1) [Vitamin B-1] 100 mg tablet 100 mg PO DAILY RF: 0 folic acid 1 mg tablet 1 mg PO DAILY RF: 0 hydroxyzine pamoate [Vistaril] 50 mg capsule 50 mg PO TID PRN (Reason: Anxiety) Qty: 21 RF: 0 venlafaxine 150 mg capsule,extended release 24hr 300 mg PO QAM Qty: 7 RF: 0 levothyroxine 25 mcg tablet 25 mcg PO QAM Qty: 30 RF: 0 Discontinued bupropion HCl 150 mg tablet sustained-release 12 hr 150 mg PO BID RF: 0 gabapentin 100 mg capsule 100 mg PO TID RF: 0 Discharge Orders: Discharge Order (Routine); Ordered 03/21/20 Ordered By: Chelsea Goodwin Admission Data Admit Date/Time: 03/17/20 13:25 Attending Provider: Joby Duggan Admit Provider: Joby Duggan Primary Care Provider: Nazario Perez Other Interventions: Discharge Summary Assessment (RN) Last Done: 03/21/20 11:19 PSY Interdisciplinary Discharge Planning Last Done: 03/21/20 11:17 Coding Level of Care Code 18193 D/C day mgmt > 30 min Diagnoses Suicide attempt by drug overdose T50.902A Depression F32.9 Alcohol dependence F10.20 Encephalopathy G93.40 Gram-positive cocci bacteremia R78.81
== END 2020-03-21 12:31 | disposition home or self-care (01) | DRG 881 ==
LOC: 3S 13:25

== ENCOUNTER 2020-11-22 08:40 | Inpatient (IN) ==
[2020-11-22] MEDS ORDERED: MULTI-VITAMIN INFUSION 10 ML, THIAMINE HCL 100 MG, FOLIC ACID 1 MG in SODIUM CHLORIDE 0... IV ONE (09:13)
[2020-11-22] MEDS ORDERED: METOCLOPRAMIDE HCL INJ 5 MG/ML 2 ML VIAL IV STA (09:14)
[2020-11-22] MEDS ORDERED: FAMOTIDINE 20MG IV PUSH 20 MG/5 ML SYR IV STA (09:14)
[2020-11-22] MEDS ORDERED: diphenhydrAMINE 50 MG/ML VIAL IV STA (09:14)
[2020-11-22] MEDS ORDERED: ACETAMINOPHEN 1,000 MG/100 ML VIAL IV STA (09:15)
[2020-11-22 09:18] LABS: Hematocrit (blood only) 38.6 % (37-47); Hemoglobin 13.6 g/dL (12.0-16.0); Immature Granulocytes # (auto) 0.01 K/uL (0.00-0.02); Immature Granulocytes % (auto) 0.1 %; Lymphocytes # (auto) 0.51 K/uL (1.2-3.4); Lymphocytes % (auto) 5.9 %; Mean Corpuscular Hemoglobin 33.9 pg (25-34); Mean Corpuscular Hgb Conc 35.2 g/dL (32-36); Mean Corpuscular Volume 96.3 fL (80-100); Mean Platelet Volume 9.7 fL (7.4-10.4); Monocytes # (auto) 1.27 K/uL (0.11-0.59); Monocytes % (auto) 14.7 %; Neutrophils # (auto) 6.85 K/uL (1.4-6.5); Neutrophils % (auto) 79.3 %; Platelet Count 223 K/uL (130-400); RDW Coefficient of Variation 13.4 % (11.5-14.5); RDW Standard Deviation 47.2 fL (36.4-46.3); Red Blood Count 4.01 M/uL (4.2-5.4); White Blood Count 8.64 K/uL (4.8-10.8)
[2020-11-22 09:35] LABS: Albumin Level 3.6 gm/dl (3.4-5.0); BUN Creatinine Ratio 9.1 (10-20); Calcium 9.1 mg/dl (8.5-10.1); Creatinine Clr Calc Pharmacy 93.4 ml/min; Est GFR (African American) 98.7 ml/min; Est GFR (Non-African American) 85.2 ml/min; Potassium 3.3 mmol/L (3.5-5.1)
[2020-11-22 09:37] LABS: Albumin Globulin Ratio 0.8 (0.9-2); Globulin 4.3 gm/dl (2.5-4.0); Total Protein 7.9 gm/dl (6.4-8.2)
[2020-11-22 10:06] LABS: Bilirubin Direct 0.6 mg/dl (0-0.2); Magnesium 1.7 mg/dl (1.8-2.4); Phosphorus 2.1 mg/dl (2.5-4.9); Thyroid Stimulating Hormone 1.3 uIu/ml (0.300-4.500)
[2020-11-22 10:08] LABS: Pregnancy Test, Serum Positive (Negative)
[2020-11-22] MEDS ORDERED: OPTIRAY 320 100ml IV ONE (10:24)
--- NOTE | 2020-11-22 11:26 | CT Scan Report ---
CT abd pelvis IV con only CLINICAL HISTORY: abd pain, h/o pancreatitis, etoh abuse COMPARISON STUDY: December 19, 2019 TECHNIQUE: A dose lowering technique was utilized adhering to the principles of ALARA. CT DOSE: 591.53 mGycm FINDINGS: Lower chest: Limited evaluation of lung bases shows no evidence of acute abnormalities.. Liver: The previously seen hepatomegaly and hepatic steatosis is improved since prior. Geographic are as of decrease attenuation within liver parenchyma is seen. Irregular subcapsular area of decreased a ttenuation is seen within segment IVb, might represent normal variant. Gallbladder: Is fluid-filled and dilated. No definite gallbladder wall thickening or pericholecystic edema is seen. No gallstones seen. Spleen: Is slightly prominent measuring 13.5 cm in length. No definite splenic lesions are seen. Pancreas: Prominent peripancreatic fat stranding is seen also extending to the adjacent loop of nondi lated descending large bowel and to the left paracolic gutter. Pancreatic duct is prominent. Multiple punctate calcifications within pancreatic parenchyma are seen. 1.4 cm hypoattenuating and slightly p eripherally enhancing lesion is seen within pancreatic head and might represent abscess formation (3/ 175) Adrenal glands: Unremarkable. Kidneys: There is symmetric renal cortical enhancement. The kidneys are normal in size without hydron ephrosis. Pelvic viscera: The bladder, and pelvic viscera are unremarkable. Bowel: Bowel loops are nondilated. Prominent fat stranding is seen surrounding second and third porti on of duodenum likely due to extension of peripancreatic edema. Few nondilated fluid-filled loops of small bowel which sometimes could be seen in diarrheal state. Ap pendix is not well seen. No evidence of bowel obstruction. Peritoneum: There is no intraperitoneal free air or abdominal ascites. Vasculature: The abdominal aorta is normal in course and caliber. Adenopathy: Few retroperitoneal lymph nodes are seen, measuring less than 1 cm in short axis and nonp athological by CT size criteria. Skeletal structures: Minimal degenerative changes of the spine and pubis symphysis. IMPRESSION: Findings suggestive of chronic pancreatitis with superimposed acute inflammatory process and possible abscess formation. Peripancreatic soft tissue edema is also extending to the duodenal wall, loop of descending colon and left paracolic gutter. Follow-up evaluation is per clinical protocol. Hepatic steatosis and hepatomegaly are improved since prior. Questionable area of decreased attenuati on within subcapsular aspect of segment IVb, could be related to perfusion versus other etiology. Att ention on follow-up imaging. The rest of findings as above. ACT 112: Negative or not required by law. The above report was generated using voice recognition software. It may contain grammatical, syntax o r spelling errors. Electronically signed by: Linda Palencia DO 11/22/2020 11:24 AM
[2020-11-22] MEDS ORDERED: MoRPHine SULFATE 10 MG/ML CARP/VIAL IV STA (11:56)
[2020-11-22] MEDS ORDERED: SODIUM CHLORIDE 0.9% 1000ML 1,000 ML IV ONE (11:58)
--- NOTE | 2020-11-22 12:47 | Emergency Department Note ---
Impression & Plan Acute on chronic pancreatitis, Elevated transaminase level, Alcohol dependence ED Provider Note NAME: SUDHEER ALMARAZ AGE: 35 SEX: F ARRIVES VIA: Walk-In INFORMANT: Patient, ED PROVIDER(S): Francisco J Freire MD CHIEF COMPLAINT: Abdominal pain PLAN: Disposition: Admit MEDICAL DECISION MAKING: The patient is a 35-year-old woman with a past medical history of alcohol dependence/abuse/withdrawal, history of alcoholic pancreatitis who presents to the emergency department with worsening abdominal pain over the past couple of days. She reports she was seen at [facility] yesterday for same symptoms and was given pain medications and discharged. [place] records obtained and lipase was in 500s. She reports they offered her admission but she wanted to go home. She denies any daily alcohol use for the past 6 months and denies any re cent symptoms of withdrawal as she only work drinks alcohol once a week on the weekends. She last drank alcohol this weekend. She denies any fevers, chills, cough, congestion, diarrhea or urinary symptoms. She reports she has been vaccinated for COVID-19 several months ago. On arrival the patient is uncomfortable emphatically requesting "pain medicine", afebrile with HR 110s and otherwise stable vital signs. She appears clinically dry. She has generalized abdominal tenderness to light touch of the skin. WBC, H/H platelets within normal limits. Chemistry without above acidosis magnesium 1.7, phosphorus 2.1 electrolytes otherwise on the workable. Total bili within normal limits. Direct bilirubin 0.6. AST and ALT 280 and 168, respectively. Alk phos is 418. Lipase is not elevated and normal at 342. Qual hcg positive with quant hcg 6 of unclear significance. Denies missed menstrual cycle. CT abd/pelvis shows "suggestive of chronic pancreatitis with superimposed acute inflammatory process and possible abscess formation. Peripancreatic soft tissue edema is also extending to the duodenal wall, loop of descending colon and left paracolic gutter". Blood culture, lactate, and procalcitonin ordered. Patient was treated with IV fluid hydration, APAP, Pepcid, diphenhydramine, Regl an and did appear somewhat improved though denied any pain relief upon reevaluation. Given her CT findings she was ordered for morphine. She was in agreement with plan for admission. Case was reviewed with Dr. Shea [facility] on-call, and upon review of CT agrees that abscess not likely. Justin aguiar with admission here for management of acute on chronic pancreatitis. Laura Gay with Dr. Javier Sanchez hospitalist. Triage Nursing notes reviewed and agree them. Additional history obtained from [place] records. Prior medical records reviewed Vital Signs: reviewed and remarkable for tachcyardia. Differential diagnosis: Appendicitis, ovarian cyst, ovarian torsion, ectopic , TOA, PID, in fections, diverticulitis, UTI, obstruction, mesenteric ischemia, aortic pathology, inflammatory bowel disease, renal colic, PUD, pancreatitis, biliary pathology, hernia, volvulus, constipation, as well as other pathologies. ER treatment provided: See below. Diagnostics interpreted by me: Cardiac Monitoring: An order for continuous cardiac monitoring was placed and demonstrated Sinus tachycardia, 114 bpm, no ectopy. Laboratory studies: See below Imaging studies: See below Consultation(s): [facility] GI on-call. Laura Gay with Dr. Javier Sanchez hospitalist. HPI: The patient is a 35-year-old woman with a past medical history of alcohol dependence/abuse/withdrawal, history of alcoholic pancreatitis who presents to the emergency department with worsening abdominal pain over the past couple of days. She reports she was seen at [facility] yesterday for same symptoms and was given pain medications and discharged. [place] records obtained and lipase was in 500s. She reports they offered her admission but she wanted to go home. She denies any daily alcohol use for the past 6 months and denies any recent symptoms of withdrawal as she only work drinks alcohol once a week on the weekends. She last drank alcohol this weekend. She denies any fevers, chills, cough, congestion, diarrhea or urinary symptoms. She reports she has been vaccinated for COVID-19 several months ago. ROS: See above HPI for pertinent positives & negatives. A total of 10 systems reviewed and were otherwise negative. PAST MEDICAL HISTORY:See Below PAST SURGICAL HISTORY:See Below FAMILY HISTORY:See Below SOCIAL HISTORY:See Below HOME MEDICATIONS:See Below ALLERGIES:See Below VITALS:See Below PHYSICAL EXAMINATION: GENERAL: Awake, alert, uncomfortable-appearing, in no distress HENT: Normocephalic, atraumatic. Oropharynx with dry mucous membranes and otherwise unremarkable. EYES: Normal conjunctiva. Sclera non-icteric. NECK: Supple. No nuchal rigidity. FROM. No JVD. RESPIRATORY: Clear to auscultation. CARDIAC: Tachycardia rate, normal rhythm. Extremities warm and well perfused. Pulses equal. ABDOMEN: Soft, non-distended. Generalized abdominal tenderness to light touch of the skin. No rebound or guarding. No masses. RECTAL: Deferred. MUSCULOSKELETAL: Chest examination reveals no tenderness. The back is symmetrical on inspection without obvious abnormality. There is no CVA tenderness to palpation. No joint edema. LOWER EXTREMITIES: Calves are equal size bilaterally and non-tender. No edema. No discoloration. NEURO: Normal sensorium. No sensory or motor deficits noted. SKIN: No rash or jaundice noted. Francisco J Freire MD Past Med/Surg History Medical History Alcohol dependence Alcohol withdrawal seizure Alcoholism Alcoholism Ascites Chronic back pain Depression Drug overdose Elevated lactic acid level Headache Hypokalemia Hypomagnesemia Hypomagnesemia Motrin overdose No significant active problems Prolonged Q-T interval on ECG Sepsis Severe acute pancreatitis Suicide attempt by drug overdose Tobacco use Transaminitis UTI (urinary tract infection) Weakness Surgical History S/P appendectomy S/P ERCP Family History Other Diabetes Hypertension Social History Smoking Status: Current every day smoker Tobacco Type: Cigarettes Second Hand Exposure: No; Hx Alcohol Use: Yes Alcohol type: hard liquor Preferred Language: [place] Communication Ability: Effective Visual Impairment: No Limitations Hearing Ability: Normal Hospice Nurse Required: No Beliefs That Will Affect Care: None marital status: Single Current Living Situation: Other Current Living Situation Comment: Friend Feels Safe at Home: No Is there a partner from a previous relationship who is making you feel unsafe now?: No Assistive Devices: Denture - Upper and Denture - Lower Allergies Allergies Allergy/AdvReac Type Severity Reaction Status Date / Time Penicillins Allergy Intermediate HIVES Verified 11/22/20 09:52 Home Meds Home Medications Medication Instructions Recorded Confirmed acetaminophen 500 mg tablet 1,000 mg PO Q6H PRN 11/22/20 11/22/20 (Tylenol Extra Strength) bupropion HCl 300 mg 24 hr tablet, 300 mg PO DAILY 11/22/20 11/22/20 extended release multivitamin 1 tab PO QAM 11/22/20 11/22/20 Previous Rx's Medication Instructions Recorded hydroxyzine pamoate 50 mg capsule 50 mg PO TID PRN #21 cap 03/21/20 (Vistaril) venlafaxine 150 mg 300 mg PO QAM #7 cap 03/21/20 capsule,extended release 24 hr Results & Data (ED) Vital Signs Vital Signs - 24 hr 11/22/20 08:44 11/22/20 08:56 11/22/20 09:00 Temperature 36.6 C Temperature Source Temporal Artery Scan Pulse Rate 114 H Pulse Rate [Left Finger] Pulse Rhythm [Left Finger] Pulse Strength [Left Finger] Respiratory Rate 18 Respiratory Effort / Characteristics Non-Labored Respiratory Depth Normal Respiratory Pattern Blood Pressure [Right Arm] 111/87 143/98 H Blood Pressure Mean [Right Arm] 95 113 Blood Pressure Position [Right Arm] Sitting Sitting Pulse Oximetry 98 Oxygen Delivery Method Room Air Sepsis Recent Fever Within 48 Hours No Sepsis New/Unexplained Change in Mental Status No Sepsis Action Taken by Nursing No Action Required 11/22/20 11:00 11/22/20 12:30 Temperature Temperature Source Pulse Rate Pulse Rate [Left Finger] 89 83 Pulse Rhythm [Left Finger] Regular Regular Pulse Strength [Left Finger] Normal Normal Respiratory Rate 20 20 Respiratory Effort / Characteristics Non-Labored Spontaneous Non-Labored Spontaneous Respiratory Depth Normal Normal Respiratory Pattern Regular Regular Blood Pressure [Right Arm] 124/76 131/88 Blood Pressure Mean [Right Arm] 92 102 Blood Pressure Position [Right Arm] Sitting Sitting Pulse Oximetry 98 98 Oxygen Delivery Method Room Air Room Air Sepsis Recent Fever Within 48 Hours Sepsis New/Unexplained Change in Mental Status Sepsis Action Taken by Nursing Laboratory Data Attestation: I reviewed the patient's lab results. Result diagrams: 11/22/20 08:55 11/22/20 08:55 Lab Results 11/22/20 11/22/20 11/22/20 Range/Units 08:55 08:55 09:27 WBC 8.64 (4.8-10.8) K/uL RBC 4.01 L (4.2-5.4) M/uL Hgb 13.6 (12.0-16.0) g/dL Hct 38.6 (37-47) % MCV 96.3 (80-100) fL MCH 33.9 (25-34) pg MCHC 35.2 (32-36) g/dL RDW Std Deviation 47.2 H (36.4-46.3) fL RDW Coeff of Meme 13.4 (11.5-14.5) % Plt Count 223 (130-400) K/uL MPV 9.7 (7.4-10.4) fL Immature Gran % (Auto) 0.1 % Neut % (Auto) 79.3 % Lymph % (Auto) 5.9 % Irion % (Auto) 14.7 % Eos % (Auto) 0.0 % Baso % (Auto) 0.0 % Neut # (Auto) 6.85 H (1.4-6.5) K/uL Lymph # (Auto) 0.51 L (1.2-3.4) K/uL Irion # (Auto) 1.27 H (0.11-0.59) K/uL Eos # (Auto) 0.00 (0-0.5) K/uL Baso # (Auto) 0.00 (0-0.2) K/uL Immature Gran # (Auto) 0.01 (0.00-0.02) K/uL Sodium 134 L (136-145) mmol/L Potassium 3.3 L (3.5-5.1) mmol/L Chloride 100 (98-107) mmol/L Carbon Dioxide 25 (21-32) mmol/L Anion Gap 9.0 (3-11) BUN 8 (7-18) mg/dl Creatinine 0.89 (0.6-1.2) mg/dl Est Cr Clr Drug Dosing 93.4 ml/min Est GFR ( Amer) 98.7 ml/min Est GFR (Non-Af Amer) 85.2 ml/min BUN/Creatinine Ratio 9.1 L (10-20) Glucose 109 H (70-99) mg/dl Lactate (0.4-2.0) mmol/L Calcium 9.1 (8.5-10.1) mg/dl Phosphorus 2.1 L (2.5-4.9) mg/dl Magnesium 1.7 L (1.8-2.4) mg/dl Total Bilirubin 1.0 (0.2-1) mg/dl Direct Bilirubin 0.6 H (0-0.2) mg/dl AST 282 H (15-37) U/L ALT 168 H (12-78) U/L Alkaline Phosphatase 412 H (45-117) U/L Total Protein 7.9 (6.4-8.2) gm/dl Albumin 3.6 (3.4-5.0) gm/dl Globulin 4.3 H (2.5-4.0) gm/dl Albumin/Globulin Ratio 0.8 L (0.9-2) Lipase 342 (73-393) U/L Procalcitonin (0-0.5) ng/ml TSH 1.300 (0.300-4.500) uIu/ml HCG, Qual (Negative) HCG, Quant mIU/ml Ethyl Alcohol mg/dL (0-3) mg/dl COVID-19 Eval Order SARS-CoV-2 (PCR) (Negative) 11/22/20 11/22/20 11/22/20 Range/Units 09:27 09:27 09:27 WBC (4.8-10.8) K/uL RBC (4.2-5.4) M/uL Hgb (12.0-16.0) g/dL Hct (37-47) % MCV (80-100) fL MCH (25-34) pg MCHC (32-36) g/dL RDW Std Deviation (36.4-46.3) fL RDW Coeff of Meme (11.5-14.5) % Plt Count (130-400) K/uL MPV (7.4-10.4) fL Immature Gran % (Auto) % Neut % (Auto) % Lymph % (Auto) % Irion % (Auto) % Eos % (Auto) % Baso % (Auto) % Neut # (Auto) (1.4-6.5) K/uL Lymph # (Auto) (1.2-3.4) K/uL Irion # (Auto) (0.11-0.59) K/uL Eos # (Auto) (0-0.5) K/uL Baso # (Auto) (0-0.2) K/uL Immature Gran # (Auto) (0.00-0.02) K/uL Sodium (136-145) mmol/L Potassium (3.5-5.1) mmol/L Chloride (98-107) mmol/L Carbon Dioxide (21-32) mmol/L Anion Gap (3-11) BUN (7-18) mg/dl Creatinine (0.6-1.2) mg/dl Est Cr Clr Drug Dosing ml/min Est GFR ( Amer) ml/min Est GFR (Non-Af Amer) ml/min BUN/Creatinine Ratio (10-20) Glucose (70-99) mg/dl Lactate (0.4-2.0) mmol/L Calcium (8.5-10.1) mg/dl Phosphorus (2.5-4.9) mg/dl Magnesium (1.8-2.4) mg/dl Total Bilirubin (0.2-1) mg/dl Direct Bilirubin (0-0.2) mg/dl AST (15-37) U/L ALT (12-78) U/L Alkaline Phosphatase (45-117) U/L Total Protein (6.4-8.2) gm/dl Albumin (3.4-5.0) gm/dl Globulin (2.5-4.0) gm/dl Albumin/Globulin Ratio (0.9-2) Lipase (73-393) U/L Procalcitonin 14.48 H (0-0.5) ng/ml TSH (0.300-4.500) uIu/ml HCG, Qual Positive (Negative) HCG, Quant mIU/ml Ethyl Alcohol mg/dL < 3.0 (0-3) mg/dl COVID-19 Eval Order SARS-CoV-2 (PCR) (Negative) 11/22/20 11/22/20 11/22/20 Range/Units 09:27 13:08 13:29 WBC (4.8-10.8) K/uL RBC (4.2-5.4) M/uL Hgb (12.0-16.0) g/dL Hct (37-47) % MCV (80-100) fL MCH (25-34) pg MCHC (32-36) g/dL RDW Std Deviation (36.4-46.3) fL RDW Coeff of Meme (11.5-14.5) % Plt Count (130-400) K/uL MPV (7.4-10.4) fL Immature Gran % (Auto) % Neut % (Auto) % Lymph % (Auto) % Irion % (Auto) % Eos % (Auto) % Baso % (Auto) % Neut # (Auto) (1.4-6.5) K/uL Lymph # (Auto) (1.2-3.4) K/uL Irion # (Auto) (0.11-0.59) K/uL Eos # (Auto) (0-0.5) K/uL Baso # (Auto) (0-0.2) K/uL Immature Gran # (Auto) (0.00-0.02) K/uL Sodium (136-145) mmol/L Potassium (3.5-5.1) mmol/L Chloride (98-107) mmol/L Carbon Dioxide (21-32) mmol/L Anion Gap (3-11) BUN (7-18) mg/dl Creatinine (0.6-1.2) mg/dl Est Cr Clr Drug Dosing ml/min Est GFR ( Amer) ml/min Est GFR (Non-Af Amer) ml/min BUN/Creatinine Ratio (10-20) Glucose (70-99) mg/dl Lactate 1.4 (0.4-2.0) mmol/L Calcium (8.5-10.1) mg/dl Phosphorus (2.5-4.9) mg/dl Magnesium (1.8-2.4) mg/dl Total Bilirubin (0.2-1) mg/dl Direct Bilirubin (0-0.2) mg/dl AST (15-37) U/L ALT (12-78) U/L Alkaline Phosphatase (45-117) U/L Total Protein (6.4-8.2) gm/dl Albumin (3.4-5.0) gm/dl Globulin (2.5-4.0) gm/dl Albumin/Globulin Ratio (0.9-2) Lipase (73-393) U/L Procalcitonin (0-0.5) ng/ml TSH (0.300-4.500) uIu/ml HCG, Qual (Negative) HCG, Quant 6 mIU/ml Ethyl Alcohol mg/dL (0-3) mg/dl COVID-19 Eval Order Covid19 at [facility] SARS-CoV-2 (PCR) (Negative) 11/22/20 Range/Units 13:29 WBC (4.8-10.8) K/uL RBC (4.2-5.4) M/uL Hgb (12.0-16.0) g/dL Hct (37-47) % MCV (80-100) fL MCH (25-34) pg MCHC (32-36) g/dL RDW Std Deviation (36.4-46.3) fL RDW Coeff of Meme (11.5-14.5) % Plt Count (130-400) K/uL MPV (7.4-10.4) fL Immature Gran % (Auto) % Neut % (Auto) % Lymph % (Auto) % Irion % (Auto) % Eos % (Auto) % Baso % (Auto) % Neut # (Auto) (1.4-6.5) K/uL Lymph # (Auto) (1.2-3.4) K/uL Irion # (Auto) (0.11-0.59) K/uL Eos # (Auto) (0-0.5) K/uL Baso # (Auto) (0-0.2) K/uL Immature Gran # (Auto) (0.00-0.02) K/uL Sodium (136-145) mmol/L Potassium (3.5-5.1) mmol/L Chloride (98-107) mmol/L Carbon Dioxide (21-32) mmol/L Anion Gap (3-11) BUN (7-18) mg/dl Creatinine (0.6-1.2) mg/dl Est Cr Clr Drug Dosing ml/min Est GFR ( Amer) ml/min Est GFR (Non-Af Amer) ml/min BUN/Creatinine Ratio (10-20) Glucose (70-99) mg/dl Lactate (0.4-2.0) mmol/L Calcium (8.5-10.1) mg/dl Phosphorus (2.5-4.9) mg/dl Magnesium (1.8-2.4) mg/dl Total Bilirubin (0.2-1) mg/dl Direct Bilirubin (0-0.2) mg/dl AST (15-37) U/L ALT (12-78) U/L Alkaline Phosphatase (45-117) U/L Total Protein (6.4-8.2) gm/dl Albumin (3.4-5.0) gm/dl Globulin (2.5-4.0) gm/dl Albumin/Globulin Ratio (0.9-2) Lipase (73-393) U/L Procalcitonin (0-0.5) ng/ml TSH (0.300-4.500) uIu/ml HCG, Qual (Negative) HCG, Quant mIU/ml Ethyl Alcohol mg/dL (0-3) mg/dl COVID-19 Eval Order SARS-CoV-2 (PCR) NEGATIVE (Negative) Administered Medications Acetaminophen (Acetaminophen 325 Mg Tab) 650 mg PO Q4H PRN PRN Reason: Pain or Fever Stop: 12/22/20 18:31 Last Admin: 11/22/20 20:28 Dose: 650 mg Documented by: [id number] Lactated Ringer's (Lr) 1,000 mls @ 200 mls/hr IV .Q5H LINDSAY Stop: 12/22/20 18:31 Last Admin: 11/22/20 19:28 Dose: 200 mls/hr Documented by: [id number] Morphine Sulfate (Morphine Sulfate 4 Mg/Ml 1 Ml Carp\\Vial) 3 mg IV Q3H PRN PRN Reason: Moderate Pain Stop: 12/06/20 18:31 Last Admin: 11/22/20 18:46 Dose: 3 mg Documented by: [id number] Nicotine (Nicotine 14 Mg/24 Hr Patch) 14 mg TD QAM LINDSAY Stop: 12/22/20 19:14 Last Admin: 11/22/20 20:04 Dose: Not Given Documented by: [id number] Discontinued Medications Diphenhydramine HCl (Diphenhydramine 50 Mg/Ml Vial) 25 mg IV NOW STA Stop: 11/22/20 09:15 Last Admin: 11/22/20 09:23 Dose: 25 mg Documented by: [id number] Multivitamins 10 ml/ Thiamine HCl 100 mg/ Folic Acid 1 mg/Sodium Chloride 1,011.2 mls @ 1,011.2 mls/hr IV .Q1H ONE Stop: 11/22/20 10:12 Last Infusion: 11/22/20 10:39 Dose: 0 mls/hr Documented by: [id number] Admin: 11/22/20 09:39 Dose: 1,011.2 mls/hr Documented by: [id number] Famotidine (Pepcid 20mg Iv Push) 20 mg in 5 mls @ 2.5 mls/min IV NOW STA Stop: 11/22/20 09:15 Last Admin: 11/22/20 09:23 Dose: 2.5 mls/min Documented by: [id number] Acetaminophen (Ofirmev) 1,000 mg in 100 mls @ 400 mls/hr IV NOW STA Stop: 11/22/20 09:29 Last Infusion: 11/22/20 09:37 Dose: 0 mls/hr Documented by: [id number] Admin: 11/22/20 09:22 Dose: 400 mls/hr Documented by: [id number] Sodium Chloride (Nss 1000ml) 1,000 mls @ 999 mls/hr IV .Q1H1M ONE Stop: 11/22/20 12:58 Last Infusion: 11/22/20 13:10 Dose: 0 mls/hr Documented by: [id number] Admin: 11/22/20 12:09 Dose: 999 mls/hr Documented by: [id number] Potassium Chloride (K Collins / Wtr) 10 meq in 100 mls @ 100 mls/hr IV NOW STA Stop: 11/22/20 14:51 Last Infusion: 11/22/20 15:38 Dose: 0 mls/hr Documented by: [id number] Admin: 11/22/20 14:24 Dose: 100 mls/hr Documented by: [id number] Potassium Phosphate 15 mmol/ (Sodium Chloride) 255 mls @ 88 mls/hr IV ONE ONE Stop: 11/22/20 17:38 Last Infusion: 11/22/20 19:28 Dose: 0 mls/hr Documented by: [id number] Admin: 11/22/20 15:38 Dose: 88 mls/hr Documented by: [id number] Magnesium Sulfate/Dextrose (Magnesium Sulfate / D5w) 1 gm in 100 mls @ 50 mls/hr IV ONE ONE Stop: 11/22/20 21:14 Last Admin: 11/22/20 20:02 Dose: 50 mls/hr Documented by: [id number] Ioversol (Optiray 320 100ml) 96 ml IV ONCE ONE Stop: 11/22/20 10:25 Last Admin: 11/22/20 10:25 Dose: 96 ml Documented by: [id number] Metoclopramide HCl (Metoclopramide Hcl Inj 5 Mg/Ml 2 Ml Vial) 10 mg IV NOW STA Stop: 11/22/20 09:15 Last Admin: 11/22/20 09:22 Dose: 10 mg Documented by: [id number] Morphine Sulfate (Morphine Sulfate 10 Mg/Ml Carp/Vial) 8 mg IV NOW STA Stop: 11/22/20 11:57 Last Admin: 11/22/20 12:09 Dose: 8 mg Documented by: [id number] Morphine Sulfate (Morphine Sulfate 4 Mg/Ml 1 Ml Carp\\Vial) Confirm Administered Dose 4 mg .ROUTE .STK-MED ONE Stop: 11/22/20 15:12 Last Admin: 11/22/20 15:18 Dose: 3 mg Documented by: [id number] Morphine Sulfate (Morphine Sulfate 4 Mg/Ml 1 Ml Carp\\Vial) Confirm Administered Dose 4 mg .ROUTE .STK-MED ONE Stop: 11/22/20 18:45 Last Admin: 11/22/20 18:47 Dose: Not Given Documented by: [id number] Imaging Data Radiologist's Impression: Abdomen/Pelvis CT 11/22/20 09:14 CT abd pelvis IV con only CLINICAL HISTORY: abd pain, h/o pancreatitis, etoh abuse COMPARISON STUDY: December 19, 2019 TECHNIQUE: A dose lowering technique was utilized adhering to the principles of ALARA. CT DOSE: 591.53 mGycm FINDINGS: Lower chest: Limited evaluation of lung bases shows no evidence of acute abnormalities.. Liver: The previously seen hepatomegaly and hepatic steatosis is improved since prior. Geographic areas of decrease attenuation within liver parenchyma is seen. Irregular subcapsular area of decreased attenuation is seen within segment IVb, might represent normal variant. Gallbladder: Is fluid-filled and dilated. No definite gallbladder wall t hickening or pericholecystic edema is seen. No gallstones seen. Spleen: Is slightly prominent measuring 13.5 cm in length. No definite splenic lesions are seen. Pancreas: Prominent peripancreatic fat stranding is seen also extending to the adjacent loop of nondilated descending large bowel and to the left paracolic gutter. Pancreatic duct is prominent. Multiple punctate calcifications within pancreatic parenchyma are seen. 1.4 cm hypoattenuating and slightly peripherally enhancing lesion is seen within pancreatic head and might represent abscess formation (3/175) Adrenal glands: Unremarkable. Kidneys: There is symmetric renal cortical enhancement. The kidneys are normal in size without hydronephrosis. Pelvic viscera: The bladder, and pelvic viscera are unremarkable. Bowel: Bowel loops are nondilated. Prominent fat stranding is seen surrounding second and third portion of duodenum likely due to extension of peripancreatic edema. Few nondilated fluid-filled loops of small bowel which sometimes could be seen in diarrheal state. Appendix is not well seen. No evidence of bowel obstruction. Peritoneum: There is no intraperitoneal free air or abdominal ascites. Vasculature: The abdominal aorta is normal in course and caliber. Adenopathy: Few retroperitoneal lymph nodes are seen, measuring less than 1 cm in short axis and nonpathological by CT size criteria. Skeletal structures: Minimal degenerative changes of the spine and pubis symphysis. IMPRESSION: Findings suggestive of chronic pancreatitis with superimposed acute inflammatory process and possible abscess formation. Peripancreatic soft tissue edema is also extending to the duodenal wall, loop of descending colon and left paracolic gutter. Follow-up evaluation is per clinical protocol. Hepatic steatosis and hepatomegaly are improved since prior. Questionable area of decreased attenuation within subcapsular aspect of segment IVb, could be related to perfusion versus other etiology. Attention on follow-up imaging. The rest of findings as above. ACT 112: Negative or not required by law. The above report was generated using voice recognition software. It may contain grammatical, syntax or spelling errors. Electronically signed by: Linda Palencia DO 11/22/2020 11:24 AM Discharge Plan Visit Data Chief Complaint: Abdominal Pain Stated Complaint: ABDOMINAL PAIN, THINK ITS PANCREAS Discharge Problem: Acute on chronic pancreatitis, Elevated transaminase level, Alcohol dependence Patient Disposition: Admitted As Inpatient Discharge Instructions Interventions: ED Discharge Assessment Last Done: 11/22/20 17:44
[2020-11-22] MEDS ORDERED: POTASSIUM PHOS 3 MMOL/1 ML INFUSION IV STA (13:50)
[2020-11-22] MEDS ORDERED: POTASSIUM CHLORIDE / WTR 10 MEQ/100 ML PLCT IV STA (13:52)
--- NOTE | 2020-11-22 13:59 | History & Physical Report ---
Date of Service November 22, 2020 Assessment & Plan (1) Acute on chronic pancreatitis: Plan: Patient is 35-year-old female with PMH history alcoholism, alcohol withdrawal seizures, history substance abuse, pancreatitis, pancreatic stricture and ductal leak and PD stent in 08/2019, PD stent removed 03/16/2020, chronic back pain, depression, history of suicide attempt presented to ER with complaint of abdominal pain x 1 day, N/V. In ER patient afebrile, P:114 down to 83, P1 11/, 98% on room air. No leukocytosis. Lactate: 1.4 T bili: 1.0, AST: 282, ALT: 168, alk phos: 412, lipase: 342 CT abdomen pelvis: Findings suggestive of chronic pancreatitis with superimposed acute inflammatory process and possible abscess formation. Peripancreatic soft tissue edema is also extending to the duodenal wall, loop of descending colon and left paracolic gutter. Hepatic steatosis and hepatomegaly are improved since prior. Questionable area of decreased attenuation within subcapsular aspect of segment IVb, could be related to perfusion versus other etiology. In ER given IV Tylenol, Benadryl 25 mg IV, Pepcid 20 mg IV, Reglan 10 mg IV, morphine 8 mg IV, 1 L NSS, 1 banana bag Possible pancreatitis secondary to alcohol use NPO LR@200ml/hr antiemetics, pain control as needed GI consult, recommend no antibiotics at this time CBC, CMP in am (2) Transaminitis: Plan: T bili: 1.0, AST: 282, ALT: 168, alk phos: 412, lipase: 342 CMP, liver labs in am (3) Hypokalemia: Plan: K: 3.3 Replace and monitor (4) Hypomagnesemia: Plan: Magnesium: 1.7 Replace and monitor (5) Hypophosphatemia: Plan: Phosphorus: 2.1 Replace and monitor (6) Positive test: Plan: HC Repeat in 48 hours (7) History of alcoholism: Plan: History alcohol withdrawal seizure in past Pt reports cut back and now drinks several beers on the weekends Last drink 3 beers 3 days ago EtOH level:<3.0 Recommend alcohol cessation (8) History of substance abuse: Plan: Denies any recent or current drug use (9) Depression: Plan: History of suicide attempt in the past Currently reports mood stable. Denies suicidal ideations On bupropion, hydroxyzine, venlafaxine (10) Tobacco use: Plan: Smoking cessation encouraged DVT Prophylaxis SCDs Full Code as per discussion with pt Follows with Dr Massimo Monroe for routine care Pt was seen and care coordinated with Dr Herrera. See addendum History of Present Illness Chief Complaint: Abdominal pain Primary Care Provider: Massimo Monroe DO Patient is 35-year-old female with PMH history alcoholism, alcohol withdrawal seizures, history substance abuse, pancreatitis, pancreatic stricture and ductal leak and PD stent in 08/2019, PD stent removed 03/16/2020, chronic back pain, depression, history of suicide attempt presented to ER with complaint of abdominal pain x1 day. Patient states yesterday started with upper abdominal pain that radiates up to chest and back. Described as ache with intermittent stabbing pain. Taking tylenol without relief. Also complains of nausea. Reports vomited 3 times yesterday. No vomiting today. Denies diarrhea. Reports bowel movement yesterday. Feels chills, has not taken temperature, she thinks chills are from pain. Patient denies recent or current substance use. She states she is drinking several beers on the weekends. Last drink 3 beers 3 days ago. Patient reports LMP was last week, unsure of day. Denies missed periods. 6, para 5. Denies hematemesis, melena, hematochezia. Denies diaphoresis, SAAB, dizziness, syncope, vision changes, neck pain, CP, SOB, orthopnea, palpitations, cough, sore throat, choking, otalgia, rhinorrhea, paresthesias, weakness, extremity weakness, extremity edema, rashes, urinary symptoms. Allergies Allergy/AdvReac Type Severity Reaction Status Date / Time Penicillins Allergy Intermediate HIVES Verified 11/22/20 09:52 Home Medications Medication Instructions Recorded Confirmed Type hydroxyzine pamoate 50 mg capsule 50 mg PO TID PRN #21 cap 03/21/20 11/22/20 Rx (Vistaril) venlafaxine 150 mg 300 mg PO QAM #7 cap 03/21/20 11/22/20 Rx capsule,extended release 24 hr acetaminophen 500 mg tablet 1,000 mg PO Q6H PRN 11/22/20 11/22/20 History (Tylenol Extra Strength) bupropion HCl 300 mg 24 hr tablet, 300 mg PO DAILY 11/22/20 11/22/20 History extended release multivitamin 1 tab PO QAM 11/22/20 11/22/20 History Lactobacillus acidoph-L.bulgaricus 1 tab PO BID #30 tab 11/27/20 Rx 1 million cell chewable tablet (Lactinex) nicotine 14 mg/24 hr daily 1 patch TRANSDERMAL DAILY #28 ea 11/27/20 Rx transdermal patch Past Med/Surg History Medical History Alcohol dependence Alcohol withdrawal seizure Alcoholism Alcoholism Ascites Chronic back pain Depression Drug overdose Elevated lactic acid level Headache Hypokalemia Hypomagnesemia Hypomagnesemia Motrin overdose No significant active problems Prolonged Q-T interval on ECG Sepsis Severe acute pancreatitis Suicide attempt by drug overdose Tobacco use Transaminitis UTI (urinary tract infection) Weakness Surgical History S/P appendectomy S/P ERCP Family History Other Diabetes Hypertension Social History Smoking Status: Current every day smoker Tobacco Type: Cigarettes Second Hand Exposure: No; Hx Alcohol Use: Yes Alcohol type: hard liquor Preferred Language: Turkmen Communication Ability: Effective Visual Impairment: No Limitations Hearing Ability: Normal Log Cooker Required: No Beliefs That Will Affect Care: None marital status: Single Current Living Situation: Other Current Living Situation Comment: Friend Feels Safe at Home: Yes Assistive Devices: None Review of Systems Review of Systems: All systems reviewed & are unremarkable except as noted in HPI & below Physical Exam Physical Exam: General: no acute distress, WDWN, appears older than stated age Head: normocephalic, atraumatic Eyes: PERRL, EOM's intact, conjunctiva non-injected, anicteric ENT: normal inspection external ears, nose, mucous membranes moist Neck: supple, trachea midline Lungs: clear, no respiratory distress, no wheezing/rhonchi/rales CV: RRR, no murmur, no pretibial edema Abd: normal BS, soft, + tenderness to palpation RUQ, epigastric and LUQ Ext: no cyanosis, no calf tenderness Neuro: A&O x 3, no focal deficits noted, normal affect Skin: warm, dry Results & Data Results & Data ([facility]) Vital Signs (Past 12 Hours) Vital Signs Temp Pulse Pulse Resp BP Pulse Ox 11/22/20 12:30 83 20 131/88 98 11/22/20 11:00 89 20 124/76 98 11/22/20 09:00 143/98 H 11/22/20 08:56 111/87 11/22/20 08:44 36.6 C 114 H 18 98 Laboratory Results Short CBC 11/22/20 11/22/20 Range/Units 08:55 08:55 WBC 8.64 (4.8-10.8) K/uL Hgb 13.6 (12.0-16.0) g/dL Hct 38.6 (37-47) % Plt Count 223 (130-400) K/uL AST 282 H (15-37) U/L ALT 168 H (12-78) U/L [facility] 11/22/20 08:55 Sodium 134 L Potassium 3.3 L Chloride 100 Carbon Dioxide 25 BUN 8 Creatinine 0.89 Glucose 109 H Calcium 9.1 Liver Function 11/22/20 11/22/20 Range/Units 08:55 09:27 Total Bilirubin 1.0 (0.2-1) mg/dl Direct Bilirubin 0.6 H (0-0.2) mg/dl AST 282 H (15-37) U/L ALT 168 H (12-78) U/L Alkaline Phosphatase 412 H (45-117) U/L Albumin 3.6 (3.4-5.0) gm/dl Diagnostic Findings Abdomen/Pelvis CT 11/22/20 09:14 CT abd pelvis IV con only CLINICAL HISTORY: abd pain, h/o pancreatitis, etoh abuse COMPARISON STUDY: December 19, 2019 TECHNIQUE: A dose lowering technique was utilized adhering to the principles of ALARA. CT DOSE: 591.53 mGycm FINDINGS: Lower chest: Limited evaluation of lung bases shows no evidence of acute abnormalities.. Liver: The previously seen hepatomegaly and hepatic steatosis is improved since prior. Geographic areas of decrease attenuation within liver parenchyma is seen. Irregular subcapsular area of decreased attenuation is seen within segment IVb, might represent normal variant. Gallbladder: Is fluid-filled and dilated. No definite gallbladder wall thickening or pericholecystic edema is seen. No gallstones seen. Spleen: Is slightly prominent measuring 13.5 cm in length. No definite splenic lesions are seen. Pancreas: Prominent peripancreatic fat stranding is seen also extending to the adjacent loop of nondilated descending large bowel and to the left paracolic gutter. Pancreatic duct is prominent. Multiple punctate calcifications within pancreatic parenchyma are seen. 1.4 cm hypoattenuating and slightly peripherally enhancing lesion is seen within pancreatic head and might represent abscess formation (3/175) Adrenal glands: Unremarkable. Kidneys: There is symmetric renal cortical enhancement. The kidneys are normal in size without hydronephrosis. Pelvic viscera: The bladder, and pelvic viscera are unremarkable. Bowel: Bowel loops are nondilated. Prominent fat stranding is seen surrounding second and third portion of duodenum likely due to extension of peripancreatic edema. Few nondilated fluid-filled loops of small bowel which sometimes could be seen in diarrheal state. Appendix is not well seen. No evidence of bowel obstruction. Peritoneum: There is no intraperitoneal free air or abdominal ascites. Vasculature: The abdominal aorta is normal in course and caliber. Adenopathy: Few retroperitoneal lymph nodes are seen, measuring less than 1 cm in short axis and nonpathological by CT size criteria. Skeletal structures: Minimal degenerative changes of the spine and pubis symphysis. IMPRESSION: Findings suggestive of chronic pancreatitis with superimposed acute inflammatory process and possible abscess formation. Peripancreatic soft tissue edema is also extending to the duodenal wall, loop of descending colon and left paracolic gutter. Follow-up evaluation is per clinical protocol. Hepatic steatosis and hepatomegaly are improved since prior. Questionable area of decreased attenuation within subcapsular aspect of segment IVb, could be related to perfusion versus other etiology. Attention on follow-up imaging. The rest of findings as above. ACT 112: Negative or not required by law. The above report was generated using voice recognition software. It may contain grammatical, syntax or spelling errors. Electronically signed by: Linda Palencia DO 11/22/2020 11:24 AM Code Status & VTE Plan VTE Prophylaxis Plan VTE Prophylaxis will be ordered: Yes Supervising Physician Co-Signing Physician Notes Pt was seen and examined. Agreed with Kim LIZ exam, assessment and plan. 35-year-old female with PMH history alcoholism, alcohol withdrawal seizures, history substance abuse, pancreatitis, pancreatic stricture and ductal leak and PD stent in 08/2019, PD stent removed 03/16/2020, chronic back pain, depression, hi story of suicide attempt presented to ER with complaint of abdominal pain. Pt said that she had a glass of alcohol with friends about 2-3 days ago,, then the next day she is having excruciated abdominal pain assocated with nausea and vomiting. CT abd/pelvis showed Findings suggestive of chronic pancreatitis with superimposed acute inflammatory process and possible abscess formation. Peripancreatic soft tissue edema is also extending to the duodenal wall, loop of descending colon and left paracolic gutter. Lipase normal. Gastro consulted. will continue pain control, antiemetic and IVF. Will keep NPO for now. Continue monitor closely. MD Javier
[2020-11-22] MEDS ORDERED: POTASSIUM PHOSPHATE 15 MMOL in SODIUM CHLORIDE 0.9% 250 ML IV ONE (14:45)
[2020-11-22] MEDS ORDERED: MoRPHine SULFATE 4 MG/ML 1 ML CARP\\VIAL ONE ×2 (15:11→18:44)
--- NOTE | 2020-11-22 15:28 | Gastrointestinal Consultation ---
Date of Consultation November 22, 2020 Assessment & Plan (1) History of alcoholism: (2) History of substance abuse: (3) Acute on chronic pancreatitis: Pt is a 35 y/o female w hx of ETOH, substance abuses, currently admitted for acute on chronic pancreatitis. CT reviewed - less likely she has developing abscess likely has pseudocyst formation due to chronic pancreatitis. - No indication for antibx at this time unless increased WBC, febrile or signs of sepsis - Support with LR IVF - Supportive care w analgesics and antiemetics prn - Avoid narcotic if possible - OP EUS eval in 4-6 week's time - Strict ETOH/tobacco cessation Supervising Physician Co-Signing Physician Notes I performed a history and physical examination of the patient today, including specifically on physical exam - soft abdomen. I have discussed the patient's management with the advanced practitioner. Please refer to the nurse practitioner's note for the documented findings and plan of care. patient with Hx of recurrent alcohol related pancreatitis, last time had disrupted PD and treated by ERCP with PD stenting, this was later removed. Continues to drink but less than before. No presented with abdominal pain, lipase normal. CT with acute on chronic pancreatitis, 1.5 cm cyst, likely a pseudocyst rather than an abscess or WON. No leukocytosis or fever hence would hold off on ABx for now. Treat with IV fluids and pain control. EUS as OP in 4 weeks. Recall GI if needed. History of Present Illness Reason for Consultation: Pancreatitis Requesting Physician: Dr. Mary Herrera Attending Physician: Dr. Mae Shea History of Present Illness Pt is a 35 y/o female who presented to ED w c/o abd pain symptoms associated w n/v. She has hx of ETOH abuse, ETOH withdrawal seizure, pancreatitis w compl ication of stricture, ductal leak and PD stent placement in 08/2019. She no showed appointments for f/u and eventually during one of her inpt admissions, her PD stent was removed on 03/2020. She reports she had cut down on ETOH intake but not completely abstinent. At home she takes Tylenol for pain control. No fever, chills. CT abd/pelvis w contrast: showed chronic pancreatitis with superimposed acute inflammatory process and possible abscess formation. Peripancreatic soft tissue edema s also extending to the duodenal wall, loop of descending colon and left paracolic gutter. LFTs up, lipase normal. Allergies Allergy/AdvReac Type Severity Reaction Status Date / Time Penicillins Allergy Intermediate HIVES Verified 11/22/20 09:52 Home Medications Medication Instructions Recorded Confirmed Type hydroxyzine pamoate 50 mg capsule 50 mg PO TID PRN #21 cap 03/21/20 11/22/20 Rx (Vistaril) venlafaxine 150 mg 300 mg PO QAM #7 cap 03/21/20 11/22/20 Rx capsule,extended release 24 hr acetaminophen 500 mg tablet 1,000 mg PO Q6H PRN 11/22/20 11/22/20 History (Tylenol Extra Strength) bupropion HCl 300 mg 24 hr tablet, 300 mg PO DAILY 11/22/20 11/22/20 History extended release multivitamin 1 tab PO QAM 11/22/20 11/22/20 History Patient History Medical History Alcohol dependence Alcohol withdrawal seizure Alcoholism Alcoholism Ascites Chronic back pain Depression Drug overdose Elevated lactic acid level Headache Hypokalemia Hypomagnesemia Hypomagnesemia Motrin overdose No significant active problems Prolonged Q-T interval on ECG Sepsis Severe acute pancreatitis Suicide attempt by drug overdose Tobacco use Transaminitis UTI (urinary tract infection) Weakness Surgical History S/P appendectomy S/P ERCP Family History Other Diabetes Hypertension Social History Smoking Status: Current every day smoker Tobacco Type: Cigarettes Hx Alcohol Use: Yes Alcohol type: beer Hx Substance Use: No Preferred Language: Slovak Communication Ability: Effective Visual Impairment: No Limitations Hearing Ability: Normal Teacher Asst Required: No Beliefs That Will Affect Care: None marital status: Single Current Living Situation: Other Current Living Situation Comment: Friend Feels Safe at Home: Yes Assistive Devices: Denture - Upper and Denture - Lower Review of Systems Review of Systems: All systems reviewed & are unremarkable except as noted in HPI & below Physical Exam Constitutional: WD/WN, vitals as above well groomed, cooperative and comfortable Eyes: PERRL, conjunctivae normal, anicteric sclerae ENMT: external ear and nose normal, oropharynx normal Respiratory: normal respiratory effort, lungs clear to auscultation Cardiovascular: RRR, no murmur, no edema Gastrointestinal (Abdomen): Generalized tenderness, hypoactive bowel sounds, soft. Skin: no rashes, warm and dry no jaundice Neurologic: Motor/Sensory: no asterixis Psychiatric: A+Ox3, euthymic affect Lymphatic: no lymphedema Results & Data ([facility]) Vital Signs (Past 12 Hours) Vital Signs Temp Pulse Pulse Resp BP BP Pulse Ox 11/22/20 14:30 85 25 H 129/89 99 11/22/20 12:30 83 20 131/88 98 11/22/20 11:00 89 20 124/76 98 11/22/20 09:00 143/98 H 11/22/20 08:56 111/87 11/22/20 08:44 36.6 C 114 H 18 98
[2020-11-22] MEDS ORDERED: ONDANSETRON INJ 2 MG/ML 2 ML VIAL IV PRN (15:38)
--- NOTE | 2020-11-22 15:44 | Electrocardiogram Report ---
Test Reason : Blood Pressure : / mmHG Vent. Rate : 084 BPM Atrial Rate : 084 BPM P-R Int : 154 ms QRS Dur : 084 ms QT Int : 370 ms P-R-T Axes : 051 063 040 degrees QTc Int : 437 ms Normal sinus rhythm RSR' or QR pattern in V1 suggests right ventricular conduction delay Otherwise Normal ECG When compared with ECG of 27-MAR-2020 22:42, No significant change was found Confirmed by Pepe Seth ([id number]) on 11/22/2020 3:44:17 PM Referred By: REFERRED SELF Confirmed By:Pepe Seth
[2020-11-22] MEDS ORDERED: PROMETHAZINE HCL 12.5 MG in SODIUM CHLORIDE 0.9% 50 ML IV PRN (18:32)
[2020-11-22] MEDS: MoRPHine SULFATE 4 MG/ML 1 ML CARP\\VIAL IV PRN ×2 (18:46→22:27)
[2020-11-22] MEDS ORDERED: MAGNESIUM SULFATE / D5W 1 GM/100 ML BAG IV ONE (19:15)
[2020-11-22] MEDS: LACTATED RINGER'S 1,000 ML IV SCH (19:28)
[2020-11-22] MEDS: NICOTINE 14 MG/24 HR PATCH TD SCH (20:04)
[2020-11-22] MEDS: ACETAMINOPHEN 325 MG TAB PO PRN (20:28)
[2020-11-23] MEDS: LACTATED RINGER'S 1,000 ML IV SCH ×4 (00:40→22:45)
[2020-11-23] MEDS: MoRPHine SULFATE 4 MG/ML 1 ML CARP\\VIAL IV PRN ×3 (01:53→08:28)
[2020-11-23 06:34] LABS: Hematocrit (blood only) 34.9 % (37-47); Hemoglobin 11.7 g/dL (12.0-16.0); Mean Corpuscular Hgb Conc 33.5 g/dL (32-36); Mean Corpuscular Volume 98.3 fL (80-100); Mean Platelet Volume 9.8 fL (7.4-10.4); Platelet Count 183 K/uL (130-400); RDW Coefficient of Variation 13.4 % (11.5-14.5); RDW Standard Deviation 48.4 fL (36.4-46.3); Red Blood Count 3.55 M/uL (4.2-5.4); White Blood Count 6.34 K/uL (4.8-10.8)
[2020-11-23 07:09] LABS: Albumin Level 2.8 gm/dl (3.4-5.0); Bilirubin Direct 0.8 mg/dl (0-0.2); Calcium 8.3 mg/dl (8.5-10.1); Est GFR (African American) 144.6 ml/min; Est GFR (Non-African American) 124.8 ml/min; Magnesium 2.1 mg/dl (1.8-2.4); Potassium 3.4 mmol/L (3.5-5.1)
[2020-11-23 07:20] LABS: Albumin Globulin Ratio 0.8 (0.9-2); Bilirubin,Total 1.4 mg/dl (0.2-1); Globulin 3.7 gm/dl (2.5-4.0); Phosphorus 1.3 mg/dl (2.5-4.9); Total Protein 6.5 gm/dl (6.4-8.2)
[2020-11-23] MEDS ORDERED: POTASSIUM PHOS 3 MMOL/1 ML INFUSION IV STA (07:28)
[2020-11-23] MEDS ORDERED: POTASSIUM PHOSPHATE 30 MMOL in SODIUM CHLORIDE 0.9% 500 ML IV ONE (07:45)
[2020-11-23] MEDS: buPROPion XL 300 MG TABCR PO SCH (08:28)
[2020-11-23] MEDS: VENLAFAXINE HCL XR 150 MG CAPXR PO SCH (08:29)
[2020-11-23] MEDS: MULTIVITAMIN TAB PO SCH (08:29)
[2020-11-23] MEDS: NICOTINE 14 MG/24 HR PATCH TD SCH (09:10)
[2020-11-23] MEDS ORDERED: MoRPHine SULFATE 4 MG/ML 1 ML CARP\\VIAL IV PRN (10:15)
--- NOTE | 2020-11-23 11:01 | Gastroenterology Progress Note ---
Date of Service November 23, 2020 Assessment & Plan (1) History of alcoholism: (2) History of substance abuse: (3) Acute on chronic pancreatitis: Plan: Pt is a 35 y/o female w hx of ETOH, substance abuses, currently admitted for acute on chronic pancreatitis. CT w/ acute on chronic panc, 1.5 cyst, likely pseudocyst from chronic pancreatitis. Overnight has developed worsening abd pain, fever, slight bump in ALP/tbili. On exam abd soft, diffusely tender; no tachycardia. - Will start Cipro/Flagyl IV - Check MRCP - Support with LR IVF - Supportive care w analgesics and antiemetics prn - Avoid narcotic if possible - Daily LFTs, CBC - Please correct electrolytes - OP EUS eval in 4-6 weeks - Encourage strict ETOH/tobacco cessation Admission and Anticipated Discharge Date Admission Date: November 22, 2020 Supervising Physician Co-Signing Physician Notes I performed a history and physical examination of the patient today, including specifically on physical exam - soft abdomen. I have discussed the patient's management with the advanced practitioner. Please refer to the nurse practitioner's note for the documented findings and plan of care. MRCP showing CBD/PD stenosis related to acute/chronic pancreatitis. Plan for ERCP tomorrow. IV ABx for now. She is likely developing a WON. Subjective Patient seen and examined, chart reviewed. Overnight, complains of abdominal pain and has a mild fever. Alk phos and T bili slightly elevated, lipase has normalized. Denies nausea vomiting, melena or hematochezia, hematemesis, chest pain or shortness of breath. Review of Systems Review of Systems: A complete review of systems was performed and negative except as noted in HPI Physical Exam Constitutional: WD/WN, vitals as above + somewhat acutely ill Eyes: PERRL, conjunctivae normal, anicteric sclerae Neck: trachea midline, no thyromegaly Respiratory: normal respiratory effort, lungs clear to auscultation Cardiovascular: RRR, no murmur, no edema Gastrointestinal (Abdomen): + mildly distended, + generalized tenderness, no rebound, guarding Skin: no rashes, warm and dry Psychiatric: A+Ox3, euthymic affect Results & Data ([facility]) Vital Signs (Past 12 Hours) Vital Signs Temp Pulse Pulse Resp BP Pulse Ox 11/23/20 07:00 37.8 C H 85 16 132/84 98 11/23/20 04:40 37.3 C 79 20 122/79 96 11/23/20 04:04 91 H 11/22/20 23:49 37.1 C 92 H 20 132/61 96 Laboratory Results 11/23/20 11/23/20 11/22/20 Range/Units 06:08 06:08 13:29 WBC 6.34 (4.8-10.8) K/uL RBC 3.55 L (4.2-5.4) M/uL Hgb 11.7 L (12.0-16.0) g/dL Hct 34.9 L (37-47) % MCV 98.3 (80-100) fL MCH 33.0 (25-34) pg MCHC 33.5 (32-36) g/dL RDW Std Deviation 48.4 H (36.4-46.3) fL RDW Coeff of Meme 13.4 (11.5-14.5) % Plt Count 183 (130-400) K/uL MPV 9.8 (7.4-10.4) fL Sodium 134 L (136-145) mmol/L Potassium 3.4 L (3.5-5.1) mmol/L Chloride 102 (98-107) mmol/L Carbon Dioxide 23 (21-32) mmol/L Anion Gap 9.0 (3-11) BUN 4 L (7-18) mg/dl Creatinine 0.53 L D (0.6-1.2) mg/dl Est Cr Clr Drug Dosing 157.0 ml/min Est GFR ( Amer) 144.6 ml/min Est GFR (Non-Af Amer) 124.8 ml/min BUN/Creatinine Ratio 8.0 L (10-20) Glucose 101 H (70-99) mg/dl Lactate (0.4-2.0) mmol/L Calcium 8.3 L (8.5-10.1) mg/dl Phosphorus 1.3 L* (2.5-4.9) mg/dl Magnesium 2.1 (1.8-2.4) mg/dl Total Bilirubin 1.4 H (0.2-1) mg/dl Direct Bilirubin 0.8 H (0-0.2) mg/dl AST 128 H (15-37) U/L ALT 118 H (12-78) U/L Alkaline Phosphatase 437 H (45-117) U/L Total Protein 6.5 (6.4-8.2) gm/dl Albumin 2.8 L (3.4-5.0) gm/dl Globulin 3.7 (2.5-4.0) gm/dl Albumin/Globulin Ratio 0.8 L (0.9-2) Procalcitonin (0-0.5) ng/ml HCG, Quant mIU/ml COVID-19 Eval Order SARS-CoV-2 (PCR) NEGATIVE (Negative) 11/22/20 11/22/20 11/22/20 Range/Units 13:29 13:08 09:27 WBC (4.8-10.8) K/uL RBC (4.2-5.4) M/uL Hgb (12.0-16.0) g/dL Hct (37-47) % MCV (80-100) fL MCH (25-34) pg MCHC (32-36) g/dL RDW Std Deviation (36.4-46.3) fL RDW Coeff of Meme (11.5-14.5) % Plt Count (130-400) K/uL MPV (7.4-10.4) fL Sodium (136-145) mmol/L Potassium (3.5-5.1) mmol/L Chloride (98-107) mmol/L Carbon Dioxide (21-32) mmol/L Anion Gap (3-11) BUN (7-18) mg/dl Creatinine (0.6-1.2) mg/dl Est Cr Clr Drug Dosing ml/min Est GFR ( Amer) ml/min Est GFR (Non-Af Amer) ml/min BUN/Creatinine Ratio (10-20) Glucose (70-99) mg/dl Lactate 1.4 (0.4-2.0) mmol/L Calcium (8.5-10.1) mg/dl Phosphorus (2.5-4.9) mg/dl Magnesium (1.8-2.4) mg/dl Total Bilirubin (0.2-1) mg/dl Direct Bilirubin (0-0.2) mg/dl AST (15-37) U/L ALT (12-78) U/L Alkaline Phosphatase (45-117) U/L Total Protein (6.4-8.2) gm/dl Albumin (3.4-5.0) gm/dl Globulin (2.5-4.0) gm/dl Albumin/Globulin Ratio (0.9-2) Procalcitonin (0-0.5) ng/ml HCG, Quant 6 mIU/ml COVID-19 Eval Order Covid19 at [facility] SARS-CoV-2 (PCR) (Negative) 11/22/20 Range/Units 09:27 WBC (4.8-10.8) K/uL RBC (4.2-5.4) M/uL Hgb (12.0-16.0) g/dL Hct (37-47) % MCV (80-100) fL MCH (25-34) pg MCHC (32-36) g/dL RDW Std Deviation (36.4-46.3) fL RDW Coeff of Meme (11.5-14.5) % Plt Count (130-400) K/uL MPV (7.4-10.4) fL Sodium (136-145) mmol/L Potassium (3.5-5.1) mmol/L Chloride (98-107) mmol/L Carbon Dioxide (21-32) mmol/L Anion Gap (3-11) BUN (7-18) mg/dl Creatinine (0.6-1.2) mg/dl Est Cr Clr Drug Dosing ml/min Est GFR ( Amer) ml/min Est GFR (Non-Af Amer) ml/min BUN/Creatinine Ratio (10-20) Glucose (70-99) mg/dl Lactate (0.4-2.0) mmol/L Calcium (8.5-10.1) mg/dl Phosphorus (2.5-4.9) mg/dl Magnesium (1.8-2.4) mg/dl Total Bilirubin (0.2-1) mg/dl Direct Bilirubin (0-0.2) mg/dl AST (15-37) U/L ALT (12-78) U/L Alkaline Phosphatase (45-117) U/L Total Protein (6.4-8.2) gm/dl Albumin (3.4-5.0) gm/dl Globulin (2.5-4.0) gm/dl Albumin/Globulin Ratio (0.9-2) Procalcitonin 14.48 H (0-0.5) ng/ml HCG, Quant mIU/ml COVID-19 Eval Order SARS-CoV-2 (PCR) (Negative)
[2020-11-23] MEDS: metroNIDAZOLE 500 MG/100 ML BAG IV SCH ×2 (11:21→17:42)
[2020-11-23] MEDS: CIPROFLOXACIN / D5W 400 MG/200 ML BAG IV SCH ×2 (11:48→22:47)
[2020-11-23] MEDS: HYDROmorphone INJ 0.5 MG/0.5 ML SYR IV PRN ×4 (13:54→23:42)
--- NOTE | 2020-11-23 13:57 | Magnetic Resonance Report ---
MRCP CLINICAL HISTORY: pancreatitis TECHNIQUE: Utilizing a 1.5 Deborah magnet and dedicated coil, multiplanar, multiecho imaging of the [facility] er abdomen was performed utilizing heavily T2 weighted pulsing sequences without IV contrast. COMPARISON STUDY: December 20, 2019. Correlation is made with CT of the abdomen performed today. FINDINGS: Limited evaluation of lung bases shows minimal bilateral pleural effusion. Also small amount of fluid is seen anteriorly to the pericardium. Liver is measuring 18 cm in anterior-posterior dimension and shows inhomogeneous signal on T2 sequenc e. No focal liver lesions or intrahepatic biliary dilatation is seen. Gallbladder is dilated and measuring 12.6 cm in anterior-posterior dimension. There is no intralumina l filling defect is seen to suggest gallstones. There is no wall thickening or pericholecystic edema is seen. Common bile duct is nondilated measuring 5 mm in size. Pancreas is not well defined with surrounding area of high T2 signal which could represent pancreatit is. Previously seen focal round lesion adjacent to pancreatic body is measuring 2.9 cm in size, has c entral fluid signal and might represent developing abscess. Findings are similar to prior CT of the a bdomen performed yesterday. There is few strictures in the proximal aspect of the pancreatic duct. Also interrupted flow is seen within distal aspect of the common bile duct which could be due to inflammatory changes/pancreatitis however neoplastic etiology cannot be completely ruled out. No evidence of hydronephrosis. Spleen is prominent measuring 13.4 cm in size, shows no evidence of focal lesions. Visualized loops of bowel are nondilated. Visualized portion of abdominal aorta is normal. IMPRESSION: 1. Fluid signal surrounding pancreas is likely due to pancreatitis. Redemonstration of focal lesion with fluid signal adjacent to the pancreatic body and might represent developing abscess. 2. Prominent pancreatic duct with few strictures within its proximal aspect. Also interrupted flow/s tricture seen within proximal aspect of the common bile duct. Above-mentioned findings could be due t o pancreatitis however neoplastic lesion cannot be completely ruled out. Further evaluation with ERCP is suggested. 3. Mild splenomegaly. 4. Dilated gallbladder. 5. The rest of findings as above. ACT 112: Negative or not required by law. The above report was generated using voice recognition software. It may contain grammatical, syntax o r spelling errors. Electronically signed by: Linda Palencia DO 11/23/2020 1:56 PM
--- NOTE | 2020-11-23 16:47 | Hospitalist Progress Note ---
Date of Service November 23, 2020 Assessment & Plan (1) Acute on chronic pancreatitis: Plan: Recurrent pancreatitis due to alcoholism Patient is 35-year-old female with PMH history alcoholism, alcohol withdrawal seizures, history substance abuse, pancreatitis, pancreatic stricture and ductal leak and PD stent in 08/2019, PD stent removed 03/16/2020, chronic back pain, depression, history of suicide attempt presented to ER with complaint of abdominal pain x 1 day, N/V. In ER patient afebrile, P:114 down to 83, P1 11/, 98% on room air. No leukocytosis. Lactate: 1.4 T bili: 1.0, AST: 282, ALT: 168, alk phos: 412, lipase: 342 CT abdomen pelvis: Findings suggestive of chronic pancreatitis with superimposed acute inflammatory process and possible abscess formation. Peripancreatic soft tissue edema is also extending to the duodenal wall, loop of descending colon and left paracolic gutter. Hepatic steatosis and hepatomegaly are improved since prior. Questionable area of decreased attenuation within subcapsular aspect of segment IVb, could be related to perfusion versus other etiology. Received IV Tylenol, Benadryl 25 mg IV, Pepcid 20 mg IV, Reglan 10 mg IV, morphine 8 mg IV, 1 L NSS, 1 banana bag NPO ,IV LR@200ml/hr Antiemetics, pain control as needed GI consult, recommend no antibiotics at this time-appreciate input and recommendation Clinically little bit better but pain has been persisting (2) Transaminitis: Plan: T bili: 1.0, AST: 282, ALT: 168, alk phos: 412, lipase: 342 Monitor LFTs (3) Hypokalemia: Plan: K: 3.3 Replace and monitor (4) Hypomagnesemia: Plan: Magnesium: 1.7 Replace and monitor (5) Hypophosphatemia: Plan: Phosphorus: 2.1 Replace and monitor (6) Positive test: Plan: HC Repeat in 48 hours We will repeat hCG level tomorrow Patient started to have vaginal bleeding (7) History of alcoholism: Plan: History alcohol withdrawal seizure in past Pt reports cut back and now drinks several beers on the weekends Last drink 3 beers 3 days ago EtOH level:<3.0 Recommend alcohol cessation (8) History of substance abuse: Plan: Denies any recent or current drug use (9) Depression: Plan: History of suicide attempt in the past Currently reports mood stable. Denies suicidal ideations On bupropion, hydroxyzine, venlafaxine (10) Tobacco use: Plan: Smoking cessation encouraged DVT Prophylaxis SCDs Full Code as per discussion with pt Follows with Dr Massimo Monroe for routine care Admission and Anticipated Discharge Date Admission Date: November 22, 2020 Subjective 11/23/2020 The patient was seen and examined in medical telemetry unit She has been complaining of increasing abdominal pain that goes to the back No nausea and or vomiting and no diarrhea No fever and no chills Review of Systems Review of Systems: All systems reviewed and are unremarkable except as noted below Physical Exam Physical Exam: Lying in bed with some discomfort due to abdominal pain Constitutional: well developed, well nourished, + ill appearing and average body habitus Eyes: PERRL, conjunctivae normal, anicteric sclerae ENMT: external ear and nose normal, oropharynx normal Neck: trachea midline, no thyromegaly Respiratory: no respiratory distress and no cough Auscultation: lungs clear to auscultation bilaterally Cardiovascular: Rate/Rhythm: regular rate and regular rhythm; not tachycardic Heart Sounds: normal S1 and normal S2; no murmur Extremities: no edema Gastrointestinal (Abdomen): Inspection/Auscultation: + abdomen distended and normal bowel sounds Percussion/Palpation: + abdomen tender and abdomen soft Musculoskeletal: No acute arthritis in any joint Neurologic: Alert, awake and oriented x3 Results & Data Results & Data ([facility]) Vital Signs (Past 12 Hours) Vital Signs Temp Pulse Resp BP BP Pulse Ox 11/23/20 15:00 37.8 C H 71 18 144/89 H 20 L 11/23/20 11:33 37.7 C H 93 H 16 132/80 96 11/23/20 07:00 37.8 C H 85 16 132/84 98 Laboratory Results Short CBC 11/23/20 Range/Units 06:08 WBC 6.34 (4.8-10.8) K/uL Hgb 11.7 L (12.0-16.0) g/dL Hct 34.9 L (37-47) % Plt Count 183 (130-400) K/uL BMP 11/23/20 06:08 Sodium 134 L Potassium 3.4 L Chloride 102 Carbon Dioxide 23 BUN 4 L Creatinine 0.53 L D Glucose 101 H Calcium 8.3 L Liver Function 11/23/20 Range/Units 06:08 Total Bilirubin 1.4 H (0.2-1) mg/dl Direct Bilirubin 0.8 H (0-0.2) mg/dl AST 128 H (15-37) U/L ALT 118 H (12-78) U/L Alkaline Phosphatase 437 H (45-117) U/L Albumin 2.8 L (3.4-5.0) gm/dl Medications Administered Current Inpatient Medications Acetaminophen (Acetaminophen 325 Mg Tab) 650 mg PO Q4H PRN PRN Reason: Pain or Fever Stop: 12/22/20 18:31 Last Admin: 11/22/20 20:28 Dose: 650 mg Documented by: Bupropion HCl (Bupropion Xl 300 Mg Tabcr) 300 mg PO DAILY LINDSAY Stop: 12/23/20 08:59 Last Admin: 11/23/20 08:28 Dose: Not Given Documented by: Hydromorphone HCl (Hydromorphone Inj 0.5 Mg/0.5 Ml Syr) 0.5 mg IV Q3H PRN PRN Reason: Pain Stop: 12/07/20 13:31 Last Admin: 11/23/20 13:54 Dose: 0.5 mg Documented by: Hydroxyzine HCl (Hydroxyzine Hcl 25 Mg Tab) 50 mg PO TID PRN PRN Reason: Anxiety Stop: 12/22/20 18:31 Lactated Ringer's (Lr) 1,000 mls @ 200 mls/hr IV .Q5H LINDSAY Stop: 12/22/20 18:31 Last Infusion: 11/23/20 11:22 Dose: 200 mls/hr Documented by: Promethazine HCl 12.5 mg/ (Sodium Chloride) 50.5 mls @ 202 mls/hr IV Q6H PRN PRN Reason: Nausea And Vomiting Stop: 12/22/20 18:31 Ciprofloxacin (Cipro / D5w) 400 mg in 200 mls @ 100 mls/hr IV Q12H LINDSAY; Protocol Stop: 12/03/20 09:44 Last Infusion: 11/23/20 15:16 Dose: Infused Documented by: Metronidazole (Flagyl) 500 mg in 100 mls @ 100 mls/hr IV Q8H LINDSAY Stop: 12/03/20 09:44 Last Infusion: 11/23/20 13:55 Dose: Infused Documented by: Miscellaneous (Remove Nicoderm Patch) 1 ea N/A DAILY@0859 [facility] Stop: 12/23/20 08:58 Last Admin: 11/23/20 09:10 Dose: Not Given Documented by: Multivitamins ([facility]ivitamin Tab) [facility] Stop: 12/23/20 08:59 Last Admin: 11/23/20 08:29 Dose: Not Given Documented by: Nicotine (Nicotine 14 Mg/24 Hr Patch) 14 mg TD QAM [facility] Stop: 12/22/20 19:14 Last Admin: 11/23/20 09:10 Dose: Not Given Documented by: Ondansetron HCl (Ondansetron Inj 2 Mg/Ml 2 Ml Vial) 4 mg IV Q6H PRN PRN Reason: Nausea And Vomiting Stop: 12/22/20 15:44 Venlafaxine HCl (Venlafaxine Hcl Xr 150 Mg Capxr) 300 mg PO [facility] Stop: 12/23/20 08:59 Last Admin: 11/23/20 08:29 Dose: Not Given Documented by:
[2020-11-23] MEDS: ACETAMINOPHEN 325 MG TAB PO PRN (19:41)
[2020-11-24] MEDS: metroNIDAZOLE 500 MG/100 ML BAG IV SCH ×3 (02:14→16:53)
[2020-11-24] MEDS: HYDROmorphone INJ 0.5 MG/0.5 ML SYR IV PRN ×4 (02:41→11:24)
[2020-11-24] MEDS: LACTATED RINGER'S 1,000 ML IV SCH ×3 (04:04→15:55)
[2020-11-24] MEDS: buPROPion XL 300 MG TABCR PO SCH (08:27)
[2020-11-24] MEDS: MULTIVITAMIN TAB PO SCH (08:27)
[2020-11-24] MEDS: VENLAFAXINE HCL XR 150 MG CAPXR PO SCH (08:28)
[2020-11-24] MEDS: NICOTINE 14 MG/24 HR PATCH TD SCH (08:29)
[2020-11-24 08:41] LABS: Hematocrit (blood only) 34.7 % (37-47); Hemoglobin 11.8 g/dL (12.0-16.0); Immature Granulocytes # (auto) 0.01 K/uL (0.00-0.02); Immature Granulocytes % (auto) 0.2 %; Lymphocytes # (auto) 1.07 K/uL (1.2-3.4); Lymphocytes % (auto) 17.3 %; Mean Corpuscular Hemoglobin 33.6 pg (25-34); Mean Corpuscular Volume 98.9 fL (80-100); Mean Platelet Volume 9.9 fL (7.4-10.4); Monocytes # (auto) 1.15 K/uL (0.11-0.59); Monocytes % (auto) 18.6 %; Neutrophils # (auto) 3.96 K/uL (1.4-6.5); Neutrophils % (auto) 63.9 %; Platelet Count 203 K/uL (130-400); RDW Coefficient of Variation 13.3 % (11.5-14.5); RDW Standard Deviation 48.2 fL (36.4-46.3); Red Blood Count 3.51 M/uL (4.2-5.4); White Blood Count 6.19 K/uL (4.8-10.8)
--- NOTE | 2020-11-24 09:02 | Anesthesiology Consultation ---
Date of Service November 24, 2020 Assessment & Plan (1) Encounter for pre-operative examination: Chart Review Chart Review: Acceptable Risk for Surgery Consults Requested none History Surgery Operation Date: 11/24/20 08:55 Proposed Procedures p Endoscopic Retrograde Cholangiopancreatogram - Mae Shea MD Height/Weight Height: 5 ft 6 in Weight: 75 kg Allergies Allergy/AdvReac Type Severity Reaction Status Date / Time Penicillins Allergy Intermediate HIVES Verified 11/22/20 09:52 Medications Home Medications Medication Instructions Recorded Confirmed Last Taken hydroxyzine pamoate 50 mg capsule 50 mg PO TID PRN #21 cap 03/21/20 11/22/20 11/21/20 (Vistaril) venlafaxine 150 mg 300 mg PO QAM #7 cap 03/21/20 11/22/20 11/21/20 capsule,extended release 24 hr acetaminophen 500 mg tablet 1,000 mg PO Q6H PRN 11/22/20 11/22/20 11/21/20 (Tylenol Extra Strength) 1000 mg bupropion HCl 300 mg 24 hr tablet, 300 mg PO DAILY 11/22/20 11/22/20 Unknown extended release multivitamin 1 tab PO QAM 11/22/20 11/22/20 11/21/20 Active Medications Generic Name Dose Route Start Last Admin Trade Name Freq PRN Reason Stop Dose Admin Acetaminophen 650 mg 11/22/20 18:32 11/23/20 19:41 Acetaminophen 325 Mg Tab PO 12/22/20 18:31 650 mg Q4H PRN Administration Pain or Fever Bupropion HCl 300 mg 11/23/20 09:00 11/24/20 08:27 Bupropion Xl 300 Mg Tabcr PO 12/23/20 08:59 Not Given DAILY LINDSAY Hydromorphone HCl 0.5 mg 11/23/20 13:32 11/24/20 08:35 Hydromorphone Inj 0.5 Mg/0.5 Ml Syr IV 12/07/20 13:31 0.5 mg Q3H PRN Administration Pain Lactated Ringer's 1,000 mls @ 200 mls/hr 11/22/20 18:32 11/24/20 04:04 Lr IV 12/22/20 18:31 200 mls/hr .Q5H LINDSAY Administration Ciprofloxacin 400 mg in 200 mls @ 100 mls/hr 11/23/20 11:00 11/24/20 00:57 Cipro / D5w IV 12/03/20 09:44 Infused Q12H LINDSAY Infusion Protocol Metronidazole 500 mg in 100 mls @ 100 mls/hr 11/23/20 10:00 11/24/20 04:06 Flagyl IV 12/03/20 09:44 Infused Q8H LINDSAY Infusion Miscellaneous 1 ea 11/23/20 08:59 11/24/20 08:29 Remove Nicoderm Patch N/A 12/23/20 08:58 Not Given DAILY@0859 [facility] Multivitamins 1 tab 11/23/20 09:00 11/24/20 08:27 Multivitamin Tab PO 12/23/20 08:59 Not Given QAM LINDSAY Nicotine 14 mg 11/22/20 19:15 11/24/20 08:29 Nicotine 14 Mg/24 Hr Patch TD 12/22/20 19:14 Not Given QAM LINDSAY Venlafaxine HCl 300 mg 11/23/20 09:00 11/24/20 08:28 Venlafaxine Hcl Xr 150 Mg Capxr PO 12/23/20 08:59 Not Given QAM LINDSAY Past Medical History Medical History Alcohol dependence Alcohol withdrawal seizure Alcoholism Alcoholism Ascites Chronic back pain Depression Drug overdose Elevated lactic acid level Headache Hypokalemia Hypomagnesemia Hypomagnesemia Motrin overdose No significant active problems Prolonged Q-T interval on ECG Sepsis Severe acute pancreatitis Suicide attempt by drug overdose Tobacco use Transaminitis UTI (urinary tract infection) Weakness Past Family History Family History Other Diabetes Hypertension Past Surgical History Surgical History S/P appendectomy S/P ERCP Social History Smoking Status: Current every day smoker tobacco type: cigarettes Do You Dip or Chew Tobacco: No Hx Alcohol Use: Yes Alcohol type: hard liquor alcohol intake frequency: 0-2 drinks per day substance use type: does not use Last Used Substance: Unknown Physical Exam Vital Signs Last Vital Signs Temp 99.0 F 11/24/20 08:07 Pulse 58 L 11/24/20 08:07 Resp 18 11/24/20 08:07 BP 132/76 11/24/20 08:07 Pulse Ox 99 11/24/20 08:07 Testing Laboratory Results 11/24/20 08:16 HCG, Quant 6 mIU/ml 11/22/20 09:27 11/22/20 12:52 Aerobic Blood Culture - Preliminary Blood No growth in Aerobic bottle after 24 hours. Anaerobic Blood Culture - Final 11/22/20 13:08 Aerobic Blood Culture - Preliminary Blood No growth in Aerobic bottle after 24 hours. Anaerobic Blood Culture - Final 11/24/20 11/22/20 08:16 09:27 HCG, Quant Pending 6 Laboratory Tests 11/22/20 13:29 SARS-CoV-2 (PCR) NEGATIVE Electrocardiogram Date: 11/22/20 Findings: + NSR @ (84) Echocardiogram Date: 08/29/19 EF: 60-65% LV Function: normal Valvular Disease: + no significant valvular disease
[2020-11-24 09:08] LABS: Albumin Level 2.6 gm/dl (3.4-5.0); BUN Creatinine Ratio 5.5 (10-20); Calcium 8.8 mg/dl (8.5-10.1); Creatinine Clr Calc Pharmacy 153.4 ml/min; Est GFR (African American) 143.7 ml/min; Magnesium 1.7 mg/dl (1.8-2.4); Potassium 3.3 mmol/L (3.5-5.1)
[2020-11-24 09:14] LABS: Albumin Globulin Ratio 0.7 (0.9-2); Bilirubin,Total 0.8 mg/dl (0.2-1); Phosphorus 1.7 mg/dl (2.5-4.9); Total Protein 6.6 gm/dl (6.4-8.2)
--- NOTE | 2020-11-24 09:51 | Gastroenterology Progress Note ---
Date of Service November 24, 2020 Assessment & Plan (1) Acute on chronic pancreatitis: Plan: Pt is a 35 y/o female w hx of ETOH, substance abuses, currently admitted for acute on chronic pancreatitis. CT w/ acute on chronic panc, 1.5 cyst, likely pseudocyst from chronic pancreatitis. Overnight has developed worsening abd pain, fever, slight bump in ALP/tbili. On exam abd soft, diffusely tender; no tachycardia. - NPO for ERCP today - Please refer to consultation note yesterday for further recommendations Admission and Anticipated Discharge Date Admission Date: November 22, 2020 Supervising Physician Co-Signing Physician Notes I performed a history and physical examination of the patient today, including specifically on physical exam - soft abdomen. I have discussed the patient's management with the advanced practitioner. Please refer to the nurse practitioner's note for the documented findings and plan of care. Subjective Pt was seen and evaluated, chart reviewed. Persistent pain, nausea No vomiting No change in bowel habits No diarrhea/constipation Review of Systems Review of Systems: All systems reviewed & are unremarkable except as noted in HPI & below Physical Exam Constitutional: WD/WN, vitals as above Neck: trachea midline, no thyromegaly Respiratory: normal respiratory effort, lungs clear to auscultation Cardiovascular: RRR, no murmur, no edema Gastrointestinal (Abdomen): normal bowel sounds, soft, nontender, no hepatosplenomegaly Skin: no rashes, warm and dry Results & Data ([facility]) Vital Signs (Past 12 Hours) Vital Signs Temp Pulse Pulse Resp BP Pulse Ox 11/24/20 08:07 37.2 C 58 L 18 132/76 99 11/24/20 03:00 37.5 C 80 18 126/85 97 11/24/20 01:44 78 11/23/20 23:00 37.1 C 75 20 129/78 97 Laboratory Results 11/24/20 11/24/20 11/24/20 Range/Units 08:16 08:16 08:16 WBC 6.19 (4.8-10.8) K/uL RBC 3.51 L (4.2-5.4) M/uL Hgb 11.8 L (12.0-16.0) g/dL Hct 34.7 L (37-47) % MCV 98.9 (80-100) fL MCH 33.6 (25-34) pg MCHC 34.0 (32-36) g/dL RDW Std Deviation 48.2 H (36.4-46.3) fL RDW Coeff of Meme 13.3 (11.5-14.5) % Plt Count 203 (130-400) K/uL MPV 9.9 (7.4-10.4) fL Immature Gran % (Auto) 0.2 % Neut % (Auto) 63.9 % Lymph % (Auto) 17.3 % Spencer % (Auto) 18.6 % Eos % (Auto) 0.0 % Baso % (Auto) 0.0 % Neut # (Auto) 3.96 (1.4-6.5) K/uL Lymph # (Auto) 1.07 L (1.2-3.4) K/uL Spencer # (Auto) 1.15 H (0.11-0.59) K/uL Eos # (Auto) 0.00 (0-0.5) K/uL Baso # (Auto) 0.00 (0-0.2) K/uL Immature Gran # (Auto) 0.01 (0.00-0.02) K/uL Sodium 135 L (136-145) mmol/L Potassium 3.3 L (3.5-5.1) mmol/L Chloride 101 (98-107) mmol/L Carbon Dioxide 26 (21-32) mmol/L Anion Gap 8.0 (3-11) BUN 3 L (7-18) mg/dl Creatinine 0.54 L (0.6-1.2) mg/dl Est Cr Clr Drug Dosing 153.4 ml/min Est GFR ( Amer) 143.7 ml/min Est GFR (Non-Af Amer) 124.0 ml/min BUN/Creatinine Ratio 5.5 L (10-20) Glucose 117 H (70-99) mg/dl Calcium 8.8 (8.5-10.1) mg/dl Phosphorus 1.7 L (2.5-4.9) mg/dl Magnesium 1.7 L (1.8-2.4) mg/dl Total Bilirubin 0.8 D (0.2-1) mg/dl AST 37 (15-37) U/L ALT 76 (12-78) U/L Alkaline Phosphatase 403 H (45-117) U/L Total Protein 6.6 (6.4-8.2) gm/dl Albumin 2.6 L (3.4-5.0) gm/dl Globulin 4.0 (2.5-4.0) gm/dl Albumin/Globulin Ratio 0.7 L (0.9-2) Lipase 60 L (73-393) U/L HCG, Quant 5 mIU/ml
[2020-11-24] MEDS ORDERED: POTASSIUM PHOS 3 MMOL/1 ML INFUSION IV STA (10:04)
[2020-11-24] MEDS ORDERED: POTASSIUM PHOSPHATE 30 MMOL in SODIUM CHLORIDE 0.9% 500 ML IV ONE (10:30)
[2020-11-24] MEDS: CIPROFLOXACIN / D5W 400 MG/200 ML BAG IV SCH ×2 (12:51→23:01)
[2020-11-24] MEDS: HYDROmorphone INJ 1 MG/ML SYRINGE IV PRN ×2 (14:01→20:14)
--- NOTE | 2020-11-24 16:56 | History & Physical Bridge Note ---
Date of Service November 24, 2020 History & Physical Bridge Note I have examined the patient, reviewed the History & Physical and in the interval since the performance of the History & Physical I have noted the following changes of clinical significance: no changes noted ERCP Patient was explained in detail regarding risks, benefits, limitations and alternatives of the above endoscopic procedure. Risks of intravenous sedation used for procedure were also explained. Risks include, but not limited to perforation, bleeding, infection, respiratory distress, cardiac arrest and . Patient is also aware about the possibility of missed lesion. Patient's questions were answered. The patient verbalized understanding the information and agreed to undergo the procedure.
--- NOTE | 2020-11-24 17:32 | Anesthesiology Consultation ---
Date of Service November 24, 2020 Assessment & Plan (1) Encounter for pre-operative examination: Chart Review Chart Review: Acceptable Risk for Surgery and Patient NOT seen in Pre Admission Testing Consults Requested none ASA ASA3 Proposed Anesthesia Anesthesia Type: General Risk / Benefits Reviewed With: PT / POA / Parent / Guardian, Accepts Plan and Informed Consent Obtained History Surgery Operation Date: 11/24/20 08:55 Proposed Procedures p Endoscopic Retrograde Cholangiopancreatogram - Mae Shea MD Height/Weight Height: 5 ft 6 in Weight: 75 kg Allergies Allergy/AdvReac Type Severity Reaction Status Date / Time Penicillins Allergy Intermediate HIVES Verified 11/22/20 09:52 Medications Home Medications Medication Instructions Recorded Confirmed Last Taken hydroxyzine pamoate 50 mg capsule 50 mg PO TID PRN #21 cap 03/21/20 11/22/20 11/21/20 (Vistaril) venlafaxine 150 mg 300 mg PO QAM #7 cap 03/21/20 11/22/20 11/21/20 capsule,extended release 24 hr acetaminophen 500 mg tablet 1,000 mg PO Q6H PRN 11/22/20 11/22/20 11/21/20 (Tylenol Extra Strength) 1000 mg bupropion HCl 300 mg 24 hr tablet, 300 mg PO DAILY 11/22/20 11/22/20 Unknown extended release multivitamin 1 tab PO QAM 11/22/20 11/22/20 11/21/20 Active Medications Generic Name Dose Route Start Last Admin Trade Name Freq PRN Reason Stop Dose Admin Acetaminophen 650 mg 11/22/20 18:32 11/23/20 19:41 Acetaminophen 325 Mg Tab PO 12/22/20 18:31 650 mg Q4H PRN Administration Pain or Fever Bupropion HCl 300 mg 11/23/20 09:00 11/24/20 08:27 Bupropion Xl 300 Mg Tabcr PO 12/23/20 08:59 Not Given DAILY LINDSAY Hydromorphone HCl 1 mg 11/24/20 13:42 11/24/20 14:01 Hydromorphone Inj 1 Mg/Ml Syringe IV 12/07/20 13:31 1 mg Q4H PRN Administration Pain Lactated Ringer's 1,000 mls @ 200 mls/hr 11/22/20 18:32 11/24/20 16:56 Lr IV 12/22/20 18:31 0 mls/hr .Q5H LINDSAY Infusion Ciprofloxacin 400 mg in 200 mls @ 100 mls/hr 11/23/20 11:00 11/24/20 15:54 Cipro / D5w IV 12/03/20 09:44 Infused Q12H LINDSAY Infusion Protocol Metronidazole 500 mg in 100 mls @ 100 mls/hr 11/23/20 10:00 11/24/20 16:53 Flagyl IV 12/03/20 09:44 100 mls/hr Q8H LINDSAY Administration Miscellaneous 1 ea 11/23/20 08:59 11/24/20 08:29 Remove Nicoderm Patch N/A 12/23/20 08:58 Not Given DAILY@0859 [facility] Multivitamins 1 tab 11/23/20 09:00 11/24/20 08:27 Multivitamin Tab PO 12/23/20 08:59 Not Given QAM LINDSAY Nicotine 14 mg 11/22/20 19:15 11/24/20 08:29 Nicotine 14 Mg/24 Hr Patch TD 12/22/20 19:14 Not Given QAM ILNDSAY Venlafaxine HCl 300 mg 11/23/20 09:00 11/24/20 08:28 Venlafaxine Hcl Xr 150 Mg Capxr PO 12/23/20 08:59 Not Given QAM LINDSAY NPO Date Last Intake of Fluids: 11/24/20 Time Last Intake of Fluids: 00:00 Date Last Intake of Solids: 11/24/20 Time Last Intake of Solids: 00:00 Past Medical History Medical History Alcohol dependence Alcohol withdrawal seizure Alcoholism Alcoholism Ascites Chronic back pain Depression Drug overdose Elevated lactic acid level Headache Hypokalemia Hypomagnesemia Hypomagnesemia Motrin overdose No significant active problems Prolonged Q-T interval on ECG Sepsis Severe acute pancreatitis Suicide attempt by drug overdose Tobacco use Transaminitis UTI (urinary tract infection) Weakness Exercise / Class Metabolic Activity II 4-5 Yardwork/Stairs/Walk up hill Past Family History Family History Other Diabetes Hypertension Past Surgical History Surgical History S/P appendectomy S/P ERCP Past Anesthesia History No Hx of Anesthesia Complications and No Family Hx of Anesthesia Complications History of PONV No Hx of PONV and No Hx of Motion Sickness Social History Smoking Status: Current every day smoker tobacco type: cigarettes Do You Dip or Chew Tobacco: No Hx Alcohol Use: Yes Alcohol type: hard liquor alcohol intake frequency: 0-2 drinks per day substance use type: does not use Last Used Substance: Unknown Physical Exam Vital Signs Last Vital Signs Temp 37.8 C H 11/24/20 17:29 Pulse 91 H 11/24/20 17:29 Resp 18 11/24/20 17:29 BP 155/101 H 11/24/20 17:29 Pulse Ox 99 11/24/20 17:29 ENMT Mouth: no dentition abnormality Thyromental Distance: > or= 3.5 Finger Breadths Mallampati Class: II Neck normal visual inspection Respiratory normal respiratory effort Auscultation: lungs clear to auscultation bilaterally Cardiovascular Rate/Rhythm: regular rate and regular rhythm Psychiatric Orientation: alert Testing Laboratory Results 11/24/20 08:16 11/24/20 08:16 HCG, Quant 5 mIU/ml 11/24/20 08:16 11/22/20 12:52 Aerobic Blood Culture - Preliminary Blood No growth in Aerobic bottle after 48 hours. Anaerobic Blood Culture - Final 11/22/20 13:08 Aerobic Blood Culture - Preliminary Blood No growth in Aerobic bottle after 48 hours. Anaerobic Blood Culture - Final 11/24/20 11/22/20 08:16 09:27 HCG, Quant 5 6 Electrocardiogram Date: 11/22/20 Findings: + NSR @ (84) Echocardiogram Date: 08/29/19 EF: 60-65% LV Function: normal Valvular Disease: + no significant valvular disease
[2020-11-24] MEDS ORDERED: ATROPINE SULFATE 0.1 MG/ML 10ML SYR IV PRN (17:33)
[2020-11-24] MEDS ORDERED: fentaNYL citrate 100 MCG/2 ML VIAL IV PRN (17:33)
[2020-11-24] MEDS ORDERED: ePHEDrine sulfate 50 MG/ML AMP IV PRN (17:33)
[2020-11-24] MEDS ORDERED: ONDANSETRON INJ 2 MG/ML 2 ML VIAL IV PRN (17:33)
[2020-11-24] MEDS ORDERED: DEXAMETHASONE SOD INJ 4 MG/ML VIAL ONE (17:42)
[2020-11-24] MEDS ORDERED: fentaNYL citrate 100 MCG/2 ML VIAL ONE (17:42)
[2020-11-24] MEDS ORDERED: LIDOCAINE 2% 2 ML VIAL/AMP(20MG/ML) INFIL ONE (17:42)
[2020-11-24] MEDS ORDERED: MIDAZOLAM HCL 1 MG/ML 2ML VIAL ONE (17:42)
[2020-11-24] MEDS ORDERED: ONDANSETRON INJ 2 MG/ML 2 ML VIAL ONE (17:42)
[2020-11-24] MEDS ORDERED: PROPOFOL IV EMULSION 10 MG/ML 20 ML VIAL IV ONE (17:42)
[2020-11-24] MEDS ORDERED: INDOMETHACIN 50 MG SUPP PR ONE (17:57)
--- NOTE | 2020-11-24 18:21 | Gastroenterology Progress Note ---
Date of Service November 24, 2020 Assessment & Plan Admission and Anticipated Discharge Date Admission Date: November 22, 2020 Subjective Patient had an HCG of 6 on 11/22 which dropped to 5 on 11/24, she reports vaginal blood spotting and thinks she is having a miscarriage. We discussed there is high suspicion for cholangitis in view of her fever and elevated LFTs and she agreed for ERCP understanding the risk of sedation in the event this is a viable which does not seem to be due to lack of HCG doubling. Please consult [facility]ILDL[facility] PROTECTOR for this after the ERCP. Results & Data ([facility]) Vital Signs (Past 12 Hours) Vital Signs Temp Pulse Pulse Resp BP Pulse Ox 11/24/20 17:29 37.8 C H 91 H 18 155/101 H 99 11/24/20 16:10 37.1 C 81 18 145/86 H 99 11/24/20 11:35 37.2 C 83 18 151/102 H 98 11/24/20 08:07 37.2 C 58 L 18 132/76 99
--- NOTE | 2020-11-24 18:32 | Hospitalist Progress Note ---
Date of Service November 24, 2020 Assessment & Plan (1) Acute on chronic pancreatitis: Plan: Recurrent pancreatitis due to alcoholism Patient is 35-year-old female with PMH history alcoholism, alcohol withdrawal seizures, history substance abuse, pancreatitis, pancreatic stricture and ductal leak and PD stent in 08/2019, PD stent removed 03/16/2020, chronic back pain, depression, history of suicide attempt presented to ER with complaint of abdominal pain x 1 day, N/V. In ER patient afebrile, P:114 down to 83, P1 11/, 98% on room air. No leukocytosis. Lactate: 1.4 T bili: 1.0, AST: 282, ALT: 168, alk phos: 412, lipase: 342 CT abdomen pelvis: Findings suggestive of chronic pancreatitis with superimposed acute inflammatory process and possible abscess formation. Peripancreatic soft tissue edema is also extending to the duodenal wall, loop of descending colon and left paracolic gutter. Hepatic steatosis and hepatomegaly are improved since prior. Questionable area of decreased attenuation within subcapsular aspect of segment IVb, could be related to perfusion versus other etiology. Received IV Tylenol, Benadryl 25 mg IV, Pepcid 20 mg IV, Reglan 10 mg IV, morphine 8 mg IV, 1 L NSS, 1 banana bag NPO ,IV LR@200ml/hr Antiemetics, pain control as needed GI consult, recommend no antibiotics at this time-appreciate input and recommendation Increasing pain in the abdomen with radiation to back Lipase level has been normalized Dilaudid ptosis is decreased from .5 to 1 mg q. 6 hourly as needed Awaiting ERCP this afternoon Possible Admission hCG was elevated to 6 She complained to have some vaginal bleeding yesterday 11/22/2020 HCG level was noted to be 5 today 07/24/2020 Possible miscarriage (2) Transaminitis: Plan: T bili: 1.0, AST: 282, ALT: 168, alk phos: 412, lipase: 342 Monitor LFTs (3) Hypokalemia: Plan: K: 3.3 Replace and monitor (4) Hypomagnesemia: Plan: Magnesium: 1.7 Replace and monitor (5) Hypophosphatemia: Plan: Phosphorus: 2.1 Replace and monitor Phosphate was replaced again today (6) Positive test: Plan: HC Repeat in 48 hours We will repeat hCG level tomorrow Patient started to have vaginal bleeding (7) History of alcoholism: Plan: History alcohol withdrawal seizure in past Pt reports cut back and now drinks several beers on the weekends Last drink 3 beers 3 days ago EtOH level:<3.0 Recommend alcohol cessation (8) History of substance abuse: Plan: Denies any recent or current drug use (9) Depression: Plan: History of suicide attempt in the past Currently reports mood stable. Denies suicidal ideations On bupropion, hydroxyzine, venlafaxine (10) Tobacco use: Plan: Smoking cessation encouraged DVT Prophylaxis SCDs Full Code as per discussion with pt Follows with Dr Massimo Monroe for routine care Admission and Anticipated Discharge Date Admission Date: November 22, 2020 Subjective Patient had an HCG of 6 on 11/22 which dropped to 5 on 11/24, she reports vaginal blood spotting and thinks she is having a miscarriage. We discussed there is high suspicion for cholangitis in view of her fever and elevated LFTs and she agreed for ERCP understanding the risk of sedation in the event this is a viable which does not seem to be due to lack of HCG doubling. Please consult SENIOR SOFTWARE QA ENGINEER for this after the ERCP. 11/24/2020 The patient was seen and examined in medical telemetry unit She has been complaining of increasing pain in the abdomen without any nausea and or vomiting She will go for ERCP this afternoon Review of Systems Review of Systems: All systems reviewed and are unremarkable except as noted below Physical Exam Physical Exam: Lying in bed with some discomfort due to abdominal pain Constitutional: well developed, well nourished, + ill appearing and average body habitus Eyes: PERRL, conjunctivae normal, anicteric sclerae ENMT: external ear and nose normal, oropharynx normal Neck: trachea midline, no thyromegaly Respiratory: no respiratory distress and no cough Auscultation: lungs clear to auscultation bilaterally Cardiovascular: Rate/Rhythm: regular rate and regular rhythm; not tachycardic Heart Sounds: normal S1 and normal S2; no murmur Extremities: no edema Gastrointestinal (Abdomen): Inspection/Auscultation: + abdomen distended and normal bowel sounds Percussion/Palpation: + abdomen tender and abdomen soft Musculoskeletal: No acute arthritis in any joint Neurologic: Alert, awake and oriented x3. Generalized weakness but no focal neurological deficit Results & Data Results & Data ([facility]) Vital Signs (Past 12 Hours) Vital Signs Temp Pulse Pulse Resp BP Pulse Ox 11/24/20 17:29 37.8 C H 91 H 18 155/101 H 99 11/24/20 16:10 37.1 C 81 18 145/86 H 99 11/24/20 11:35 37.2 C 83 18 151/102 H 98 11/24/20 08:07 37.2 C 58 L 18 132/76 99 Laboratory Results Short CBC 11/24/20 Range/Units 08:16 WBC 6.19 (4.8-10.8) K/uL Hgb 11.8 L (12.0-16.0) g/dL Hct 34.7 L (37-47) % Plt Count 203 (130-400) K/uL BMP 11/24/20 08:16 Sodium 135 L Potassium 3.3 L Chloride 101 Carbon Dioxide 26 BUN 3 L Creatinine 0.54 L Glucose 117 H Calcium 8.8 Liver Function 11/24/20 Range/Units 08:16 Total Bilirubin 0.8 D (0.2-1) mg/dl AST 37 (15-37) U/L ALT 76 (12-78) U/L Alkaline Phosphatase 403 H (45-117) U/L Albumin 2.6 L (3.4-5.0) gm/dl Medications Administered Current Inpatient Medications Acetaminophen (Acetaminophen 325 Mg Tab) 650 mg PO Q4H PRN PRN Reason: Pain or Fever Stop: 12/22/20 18:31 Last Admin: 11/23/20 19:41 Dose: 650 mg Documented by: Atropine Sulfate (Atropine Sulfate 0.1 Mg/Ml 10ml Syr) 0.5 mg IV Q1M PRN PRN Reason: PACU Use-HR<40 &/or Bradycardi Stop: 11/25/20 01:33 Bupropion HCl (Bupropion Xl 300 Mg Tabcr) 300 mg PO DAILY [facility] Stop: 12/23/20 08:59 Last Admin: 11/24/20 08:27 Dose: Not Given Documented by: Ephedrine Sulfate (Ephedrine Sulfate 50 Mg/Ml Amp) 5 mg IV Q5M PRN PRN Reason: PACU Use Only-SBP<90 mmHg Stop: 11/25/20 01:33 Fentanyl Citrate (Fentanyl Citrate 100 Mcg/2 Ml Vial) 50 mcg IV Q5M PRN PRN Reason: PACU Use Only-Pain Stop: 11/25/20 01:33 Hydromorphone HCl (Hydromorphone Inj 1 Mg/Ml Syringe) 1 mg IV Q4H PRN PRN Reason: Pain Stop: 12/07/20 13:31 Last Admin: 11/24/20 14:01 Dose: 1 mg Documented by: Hydroxyzine HCl (Hydroxyzine Hcl 25 Mg Tab) 50 mg PO TID PRN PRN Reason: Anxiety Stop: 12/22/20 18:31 Lactated Ringer's (Lr) 1,000 mls @ 200 mls/hr IV .Q5H [facility] Stop: 12/22/20 18:31 Last Infusion: 11/24/20 16:56 Dose: 0 mls/hr Documented by: Promethazine HCl 12.5 mg/ (Sodium Chloride) 50.5 mls @ 202 mls/hr IV Q6H PRN PRN Reason: Nausea And Vomiting Stop: 12/22/20 18:31 Ciprofloxacin (Cipro / D5w) 400 mg in 200 mls @ 100 mls/hr IV Q12H [facility]; Protocol Stop: 12/03/20 09:44 Last Infusion: 11/24/20 15:54 Dose: Infused Documented by: Metronidazole (Flagyl) 500 mg in 100 mls @ 100 mls/hr IV Q8H [facility] Stop: 12/03/20 09:44 Last Admin: 11/24/20 16:53 Dose: 100 mls/hr Documented by: Miscellaneous (Remove Nicoderm Patch) 1 ea N/A DAILY@0859 [facility] Stop: 12/23/20 08:58 Last Admin: 11/24/20 08:29 Dose: Not Given Documented by: Multivitamins (Multivitamin Tab) 1 tab PO QAM [facility] Stop: 12/23/20 08:59 Last Admin: 11/24/20 08:27 Dose: Not Given Documented by: Nicotine (Nicotine 14 Mg/24 Hr Patch) 14 mg TD QAM [facility] Stop: 12/22/20 19:14 Last Admin: 11/24/20 08:29 Dose: Not Given Documented by: Ondansetron HCl (Ondansetron Inj 2 Mg/Ml 2 Ml Vial) 4 mg IV Q6H PRN PRN Reason: Nausea And Vomiting Stop: 12/22/20 15:44 Ondansetron HCl (Ondansetron Inj 2 Mg/Ml 2 Ml Vial) 4 mg IV ONCE PRN PRN Reason: PACU Use Only-Nausea/Vomiting Stop: 11/25/20 01:33 Venlafaxine HCl (Venlafaxine Hcl Xr 150 Mg Capxr) 300 mg PO [facility] Stop: 12/23/20 08:59 Last Admin: 11/24/20 08:28 Dose: Not Given Documented by:
--- NOTE | 2020-11-24 19:15 | Operative Report ---
Post Operative Report Pre & Post Diagnosis Operation Date: 11/24/20 08:55 Pre-Op Diagnosis: Acute Pancreatitis Post-Op Diagnosis: Acute Pancreatitis; Acute Cholangitis I identified the patient and participated in the time-out.: Yes Procedure Operation Date: 11/24/20 08:55 Actual Procedures p Endoscopic Retrograde Cholangiopancreatogram(Not Applicable) - Mae Shea MD Surgeon Mae Shea MD Tipple Engineer None Estimated Blood Loss 0 Findings See Below (Likely Cholangitis, CBD stent placed) Specimens None Description of Procedure ERCP I attest to the content of the Intraoperative Record and any orders documented therein. Any exceptions are noted below.
--- NOTE | 2020-11-24 19:28 | GI REPORT ---
Patient Name: Ana Wooten Procedure Date: 11/24/2020 5:29 PM Date of : 1985 Admit Type: Inpatient Age: 35 Gender: Female Attending MD: Mae Shea MD Procedure: ERCP Providers: Mae Shea MD Referring MD: Gildardo Veras Indications: Suspected ascending cholangitis, Elevated liver enzymes Medicines: General Anesthesia Complications: No immediate complications. Estimated Blood Loss: Estimated blood loss: none. Procedure: Pre-Anesthesia Assessment: - Prior to the procedure, a History and Physical was performed, and patient medications, allergies and sensitivities were reviewed. The patient's tolerance of previous anesthesia was reviewed. - The risks and benefits of the procedure and the sedation options and risks were discussed with the patient. All questions were answered and informed consent was obtained. - Patient identification and proposed procedure were verified prior to the procedure by the physician and the nurse. The procedure was verified in the procedure room. - Pre-procedure physical examination revealed no contraindications to sedation. After obtaining informed consent, the scope was passed under direct vision. Throughout the procedure, the patient's blood pressure, pulse, and oxygen saturations were monitored continuously. The Scope was introduced through the mouth, and advanced to the duodenum and used to inject contrast into the bile duct. The ERCP was accomplished without difficulty. The patient tolerated the procedure well. Findings: The bridge mechanic film was normal. The esophagus was successfully intubated under direct vision. The scope was advanced to a normal major papilla in the descending duodenum without detailed examination of the pharynx, larynx and associated structures, and upper GI tract. The upper GI tract was grossly normal. Inspection of the major papilla revealed that biliary and pancreatic sphincterotomies had been performed previously. The biliary sphincterotomy appeared stenosed or narrowed. The pancreatic sphincterotomy appeared not overtly patent. A 0.035 inch straight standard wire was passed into the biliary tree. The Fusion OMNI sphincterotome was passed over the guidewire and the bile duct was then deeply cannulated. Contrast was injected. I personally interpreted the bile duct images. Ductal flow of contrast was adequate. Image quality was adequate. Contrast extended to the main bile duct. Opacification of the entire biliary tree was successful. The maximum diameter of the ducts was 8 mm. The biliary orifice was stenotic. This appeared benign. The biliary tree was swept with a 12 mm balloon starting at the bifurcation. Sludge was swept from the duct. Pus was swept from the duct. One 7 Fr by 7 cm plastic biliary stent with a single external flap and a single internal flap was placed into the common bile duct. Bile flowed through the stent. The stent was in good position. A very small minor papilla was visualized. There was edema around the area which made cannulation difficult. Dorsal pancreatic sphincterotomy was made with a monofilament needle knife using a freehand technique using ERBE electrocautery. There was no post-sphincterotomy bleeding. Despite that the minor papilla could not be cannulated. Indomethacin 100 mg was given via suppository to decrease the risk of post-ERCP pancreatitis (PEP). Impression: - Biliary papillary stenosis, benign. - The biliary tree was swept and sludge and pus were found. - One plastic biliary stent was placed into the common bile duct. - Pancreatic ductal system could not be accessed. Recommendation: - [facility]. - Repeat ERCP in 6 weeks to remove stent and attempt pancreatic ductal endotherapy. - Continue ABx. - CT scan abdomen in 4 weeks to assess the progression of the pancreatic pseudocyst. Mae Shea MD 11/24/2020 7:27:30 PM This report has been signed electronically. Note Initiated On: 11/24/2020 5:29 PM Number of Addenda: 0 I attest to the content of the Intraoperative Record and orders documented therein, exceptions below {[id number]}
[2020-11-24] MEDS ORDERED: GLUCAGON FOR INJ 1 MG VIAL ONE (19:29)
--- NOTE | 2020-11-24 19:38 | Fluoroscopy Report ---
[place] ERCP biliary ductal CLINICAL INDICATION: [place] ^EXPLORE DUCTS. TECHNIQUE: 10 views were obtained with the C-arm in the OR with the above procedure. Total fluoroscop y time was 37.5 seconds. Total skin dose was 18.3 mGy. Comparison: Comparison is made to MRCP 11/23/2020 FINDINGS/IMPRESSION: Intraoperative images of ERCP and stent placement are seen. Please correlate with intraoperative fluoroscopy and operative report. ACT 112: Negative or not required by law. Electronically signed by: Jin Gutierrez M.D. 11/24/2020 7:37 PM
--- NOTE | 2020-11-24 19:40 | Anesthesiology Progress Note ---
Date of Service November 24, 2020 Anesthesia Post Procedure Vital Signs Vital Signs: Temp Pulse Pulse Pulse Resp BP Pulse Ox 11/24/20 19:35 73 18 123/83 100 11/24/20 19:25 36.6 C 78 18 124/82 99 11/24/20 17:29 37.8 C H 91 H 18 155/101 H 99 11/24/20 16:10 37.1 C 81 18 145/86 H 99 11/24/20 11:35 37.2 C 83 18 151/102 H 98 11/24/20 08:07 37.2 C 58 L 18 132/76 99 11/24/20 03:00 37.5 C 80 18 126/85 97 11/24/20 01:44 78 11/23/20 23:00 37.1 C 75 20 129/78 97 Pain Intensity Abdomen: Pain Intensity: 10 Transfer of Care Handoff Completed per policy Notes Mental Status: alert / awake / arousable Patient Amnestic to Procedure: Yes Nausea / Vomiting: adequately controlled Pain: adequately controlled Airway Patency, RR, SpO2: stable & adequate BP & HR: stable & adequate Hydration State: stable & adequate Anesthetic Complications: no major complications apparent
[2020-11-25] MEDS: HYDROmorphone INJ 1 MG/ML SYRINGE IV PRN ×3 (00:18→08:22)
[2020-11-25] MEDS: LACTATED RINGER'S 1,000 ML IV SCH ×4 (00:22→10:34)
[2020-11-25] MEDS: metroNIDAZOLE 500 MG/100 ML BAG IV SCH ×3 (03:12→18:01)
[2020-11-25 07:51] LABS: Albumin Level 2.7 gm/dl (3.4-5.0); BUN Creatinine Ratio 8.6 (10-20); Calcium 8.8 mg/dl (8.5-10.1); Creatinine Clr Calc Pharmacy 162.4 ml/min; Est GFR (African American) 146.4 ml/min; Est GFR (Non-African American) 126.3 ml/min; Potassium 3.7 mmol/L (3.5-5.1)
[2020-11-25 07:55] LABS: Albumin Globulin Ratio 0.6 (0.9-2); Bilirubin,Total 0.6 mg/dl (0.2-1); Globulin 4.4 gm/dl (2.5-4.0); Phosphorus 2.7 mg/dl (2.5-4.9); Total Protein 7.1 gm/dl (6.4-8.2)
[2020-11-25] MEDS: VENLAFAXINE HCL XR 150 MG CAPXR PO SCH (08:10)
[2020-11-25] MEDS: MULTIVITAMIN TAB PO SCH (08:10)
[2020-11-25] MEDS: buPROPion XL 300 MG TABCR PO SCH (08:10)
[2020-11-25] MEDS: NICOTINE 14 MG/24 HR PATCH TD SCH (08:11)
[2020-11-25] MEDS: CIPROFLOXACIN / D5W 400 MG/200 ML BAG IV SCH ×2 (11:45→23:24)
--- NOTE | 2020-11-25 13:31 | Hospitalist Progress Note ---
Date of Service November 25, 2020 Assessment & Plan (1) Acute on chronic pancreatitis: Plan: Recurrent pancreatitis due to alcoholism Patient is 35-year-old female with PMH history alcoholism, alcohol withdrawal seizures, history substance abuse, pancreatitis, pancreatic stricture and ductal leak and PD stent in 08/2019, PD stent removed 03/16/2020, chronic back pain, depression, history of suicide attempt presented to ER with complaint of abdominal pain x 1 day, N/V. In ER patient afebrile, P:114 down to 83, P1 /, 98% on room air. No leukocytosis. Lactate: 1.4 T bili: 1.0, AST: 282, ALT: 168, alk phos: 412, lipase: 342 CT abdomen pelvis: Findings suggestive of chronic pancreatitis with superimposed acute inflammatory process and possible abscess formation. Peripancreatic soft tissue edema is also extending to the duodenal wall, loop of descending colon and left paracolic gutter. Hepatic steatosis and hepatomegaly are improved since prior. Questionable area of decreased attenuation within subcapsular aspect of segment IVb, could be related to perfusion versus other etiology. Received IV Tylenol, Benadryl 25 mg IV, Pepcid 20 mg IV, Reglan 10 mg IV, morphine 8 mg IV, 1 L NSS, 1 banana bag NPO ,IV LR@200ml/hr Antiemetics, pain control as needed GI consult, recommend no antibiotics at this time-appreciate input and recommendation Increasing pain in the abdomen with radiation to back Lipase level has been normalized Dilaudid ptosis is decreased from .5 to 1 mg q. 6 hourly as needed Status post ERCP and biliary stent placement Has been doing much better following the procedure We will advance diet as tolerated-likely discharge tomorrow She will need to have a CAT scan of the abdomen and pelvis in 4 weeks to assess the progression of the pancreatic pseudocyst and repeat ERCP in 6 weeks to remove the stent Possible Admission hCG was elevated to 6 She complained to have some vaginal bleeding yesterday 11/22/2020 HCG level was noted to be 5 today 07/24/2020 Possible miscarriage-Will need TECHNICAL SERVICES ANALYST appointment as an outpatient (2) Transaminitis: Plan: T bili: 1.0, AST: 282, ALT: 168, alk phos: 412, lipase: 342 Monitor LFTs-are much better (3) Hypokalemia: Plan: K: 3.3 Replace and monitor (4) Hypomagnesemia: Plan: Magnesium: 1.7 Replace and monitor (5) Hypophosphatemia: Plan: Phosphorus: 2.1 Replace and monitor Phosphate was replaced again today (6) Positive test: Plan: HC Repeat in 48 hours We will repeat hCG level tomorrow Patient started to have vaginal bleeding Will need to make an appointment with your TECHNICAL SERVICES ANALYST for a follow-up regarding this miscarriage (7) History of alcoholism: Plan: History alcohol withdrawal seizure in past Pt reports cut back and now drinks several beers on the weekends Last drink 3 beers 3 days ago EtOH level:<3.0 Recommend alcohol cessation (8) History of substance abuse: Plan: Denies any recent or current drug use (9) Depression: Plan: History of suicide attempt in the past Currently reports mood stable. Denies suicidal ideations On bupropion, hydroxyzine, venlafaxine (10) Tobacco use: Plan: Smoking cessation encouraged DVT Prophylaxis SCDs Full Code as per discussion with pt Follows with Dr Massimo Monroe for routine care Admission and Anticipated Discharge Date Admission Date: November 22, 2020 Subjective Patient had an HCG of 6 on 11/22 which dropped to 5 on 11/24, she reports vaginal blood spotting and thinks she is having a miscarriage. We discussed there is high suspicion for cholangitis in view of her fever and elevated LFTs and she agreed for ERCP understanding the risk of sedation in the event this is a viable which does not seem to be due to lack of HCG doubling. Please consult TECHNICAL SERVICES ANALYST for this after the ERCP. 11/24/2020 The patient was seen and examined in medical telemetry unit She has been complaining of increasing pain in the abdomen without any nausea and or vomiting She will go for ERCP this afternoon 11/25/2020 The patient was seen and examined in medical telemetry unit She has been feeling much better and denies any symptoms Her diet was advanced and the Dilaudid was stopped If she can tolerate the diet she will be discharged home this afternoon Review of Systems Review of Systems: All systems reviewed and are unremarkable except as noted below Physical Exam Physical Exam: Lying in bed with some discomfort due to abdominal pain Constitutional: well developed, well nourished, + ill appearing and average body habitus Eyes: PERRL, conjunctivae normal, anicteric sclerae ENMT: external ear and nose normal, oropharynx normal Neck: trachea midline, no thyromegaly Respiratory: no respiratory distress and no cough Auscultation: lungs clear to auscultation bilaterally Cardiovascular: Rate/Rhythm: regular rate and regular rhythm; not tachycardic Heart Sounds: normal S1 and normal S2; no murmur Extremities: no edema Gastrointestinal (Abdomen): Inspection/Auscultation: + abdomen distended and normal bowel sounds Percussion/Palpation: + abdomen tender and abdomen soft Musculoskeletal: No acute arthritis in any joint Neurologic: Alert, awake and oriented x3. No focal sensory and motor deficit appreciated Lymphatic: no cervical or axillary lymphadenopathy Results & Data Results & Data ([facility]) Vital Signs (Past 12 Hours) Vital Signs Temp Pulse Pulse Resp BP Pulse Ox 11/25/20 11:08 36.6 C 60 18 136/89 100 11/25/20 08:54 58 L 11/25/20 07:41 36.4 C L 61 20 136/84 100 11/25/20 04:00 36.4 C L 57 L 18 122/82 98 Laboratory Results [facility] 11/25/20 07:05 Sodium 137 Potassium 3.7 Chloride 102 Carbon Dioxide 27 BUN 4 L Creatinine 0.51 L Glucose 114 H Calcium 8.8 Liver Function 11/25/20 Range/Units 07:05 Total Bilirubin 0.6 (0.2-1) mg/dl AST 22 (15-37) U/L ALT 61 (12-78) U/L Alkaline Phosphatase 376 H (45-117) U/L Albumin 2.7 L (3.4-5.0) gm/dl Medications Administered Current Inpatient Medications Acetaminophen (Acetaminophen 325 Mg Tab) 650 mg PO Q4H PRN PRN Reason: Pain or Fever Stop: 12/22/20 18:31 Last Admin: 11/23/20 19:41 Dose: 650 mg Documented by: Bupropion HCl (Bupropion Xl 300 Mg Tabcr) 300 mg PO DAILY L[facility]SAY Stop: 12/23/20 08:59 Last Admin: 11/25/20 08:10 Dose: 300 mg Documented by: Hydroxyzine HCl (Hydroxyzine Hcl 25 Mg Tab) 50 mg PO TID PRN PRN Reason: Anxiety Stop: 12/22/20 18:31 Promethazine HCl 12.5 mg/ (Sodium Chloride) 50.5 mls @ 202 mls/hr IV Q6H PRN PRN Reason: Nausea And Vomiting Stop: 12/22/20 18:31 Ciprofloxacin (Cipro / D5w) 400 mg in 200 mls @ 100 mls/hr IV Q12H [facility]; Protocol Stop: 12/03/20 09:44 Last Admin: 11/25/20 11:45 Dose: 100 mls/hr Documented by: Metronidazole (Flagyl) 500 mg in 100 mls @ 100 mls/hr IV Q8H [facility] Stop: 12/03/20 09:44 Last Infusion: 11/25/20 09:47 Dose: Infused Documented by: Miscellaneous (Remove Nicoderm Patch) 1 ea N/A DAILY@0859 [facility] Stop: 12/23/20 08:58 Last Admin: 11/25/20 08:11 Dose: Not Given Documented by: Multivitamins ([facility]ivitamin Tab) [facility] [place] [facility] Stop: 12/23/20 08:59 Last Admin: 11/25/20 08:10 Dose: 1 tab Documented by: Nicotine (Nicotine 14 Mg/24 Hr Patch) 14 mg TD [facility] Stop: 12/22/20 19:14 Last Admin: 11/25/20 08:11 Dose: Not Given Documented by: Ondansetron HCl (Ondansetron Inj 2 Mg/Ml 2 Ml Vial) 4 mg IV Q6H PRN PRN Reason: Nausea And Vomiting Stop: 12/22/20 15:44 Venlafaxine HCl (Venlafaxine Hcl Xr 150 Mg Capxr) 300 mg PO [facility] Stop: 12/23/20 08:59 Last Admin: 11/25/20 08:10 Dose: 300 mg Documented by:
[2020-11-25] MEDS: HYDROmorphone INJ 0.5 MG/0.5 ML SYR IV PRN ×2 (14:00→20:43)
[2020-11-25] MEDS: hydrOXYzine HCl 25 MG TAB PO PRN (18:19)
[2020-11-25] MEDS ORDERED: HYDROmorphone INJ 0.5 MG/0.5 ML SYR IV STA (19:33)
[2020-11-26] MEDS ORDERED: oxyCODONE HCL IR 5 MG TAB (IMMEDIATE RELEASE) PO STA (00:09)
[2020-11-26] MEDS ORDERED: MELATONIN 3 MG TAB PO PRN (00:36)
[2020-11-26] MEDS: metroNIDAZOLE 500 MG/100 ML BAG IV SCH ×3 (01:33→17:30)
[2020-11-26] MEDS ORDERED: HYDROmorphone INJ 0.5 MG/0.5 ML SYR IV STA (02:12)
[2020-11-26] MEDS: HYDROmorphone INJ 0.5 MG/0.5 ML SYR IV PRN ×3 (06:15→18:16)
[2020-11-26] MEDS: VENLAFAXINE HCL XR 150 MG CAPXR PO SCH (08:02)
[2020-11-26] MEDS: MULTIVITAMIN TAB PO SCH (08:02)
[2020-11-26] MEDS: buPROPion XL 300 MG TABCR PO SCH (08:03)
[2020-11-26] MEDS: NICOTINE 14 MG/24 HR PATCH TD SCH (08:04)
[2020-11-26] MEDS: ACETAMINOPHEN 325 MG TAB PO PRN (08:24)
[2020-11-26] MEDS: hydrOXYzine HCl 25 MG TAB PO PRN (08:25)
[2020-11-26] MEDS ORDERED: KETOROLAC TROMETHAMINE 15 MG/ML VIAL IV ONE ×2 (08:33→20:51)
[2020-11-26] MEDS ORDERED: KETOROLAC TROMETHAMINE 15 MG/ML VIAL ONE ×2 (08:41→15:41)
[2020-11-26] MEDS ORDERED: MAGNESIUM HYDROXIDE SUSP 30 ML UDC PO ONE (09:51)
[2020-11-26] MEDS: CIPROFLOXACIN / D5W 400 MG/200 ML BAG IV SCH ×2 (11:43→22:41)
--- NOTE | 2020-11-26 14:39 | Hospitalist Progress Note ---
Date of Service November 26, 2020 Assessment & Plan (1) Acute on chronic pancreatitis: Plan: Recurrent pancreatitis due to alcoholism Patient is 35-year-old female with PMH history alcoholism, alcohol withdrawal seizures, history substance abuse, pancreatitis, pancreatic stricture and ductal leak and PD stent in 08/2019, PD stent removed 03/16/2020, chronic back pain, depression, history of suicide attempt presented to ER with complaint of abdominal pain x 1 day, N/V. In ER patient afebrile, P:114 down to 83, P1 11/, 98% on room air. No leukocytosis. Lactate: 1.4 T bili: 1.0, AST: 282, ALT: 168, alk phos: 412, lipase: 342 CT abdomen pelvis: Findings suggestive of chronic pancreatitis with superimposed acute inflammatory process and possible abscess formation. Peripancreatic soft tissue edema is also extending to the duodenal wall, loop of descending colon and left paracolic gutter. Hepatic steatosis and hepatomegaly are improved since prior. Questionable area of decreased attenuation within subcapsular aspect of segment IVb, could be related to perfusion versus other etiology. Received IV Tylenol, Benadryl 25 mg IV, Pepcid 20 mg IV, Reglan 10 mg IV, morphine 8 mg IV, 1 L NSS, 1 banana bag NPO ,IV LR@200ml/hr Antiemetics, pain control as needed GI consult, recommend no antibiotics at this time-appreciate input and recommendation Increasing pain in the abdomen with radiation to back Lipase level has been normalized Dilaudid ptosis is decreased from .5 to 1 mg q. 6 hourly as needed Status post ERCP and biliary stent placement Has been doing much better following the procedure We will advance diet as tolerated-likely discharge tomorrow She will need to have a CAT scan of the abdomen and pelvis in 4 weeks to assess the progression of the pancreatic pseudocyst and repeat ERCP in 6 weeks to remove the stent Has been tolerating regular diet and he still complains abdominal pain Will give Toradol as needed for pain control Monitor labs for tomorrow and possible discharge tomorrow Possible Admission hCG was elevated to 6 She complained to have some vaginal bleeding yesterday 11/22/2020 HCG level was noted to be 5 today 07/24/2020 Possible miscarriage-Will need ENTRY LEVEL MECHANICAL ENGINEER appointment as an outpatient (2) Transaminitis: Plan: T bili: 1.0, AST: 282, ALT: 168, alk phos: 412, lipase: 342 Monitor LFTs-are much better (3) Hypokalemia: Plan: K: 3.3 Replace and monitor (4) Hypomagnesemia: Plan: Magnesium: 1.7 Replace and monitor (5) Hypophosphatemia: Plan: Phosphorus: 2.1 Replace and monitor Phosphate was replaced again today (6) Positive test: Plan: HC Repeat in 48 hours We will repeat hCG level tomorrow Patient started to have vaginal bleeding Will need to make an appointment with your ENTRY LEVEL MECHANICAL ENGINEER for a follow-up regarding this miscarriage (7) History of alcoholism: Plan: History alcohol withdrawal seizure in past Pt reports cut back and now drinks several beers on the weekends Last drink 3 beers 3 days ago EtOH level:<3.0 Recommend alcohol cessation (8) History of substance abuse: Plan: Denies any recent or current drug use (9) Depression: Plan: History of suicide attempt in the past Currently reports mood stable. Denies suicidal ideations On bupropion, hydroxyzine, venlafaxine (10) Tobacco use: Plan: Smoking cessation encouraged DVT Prophylaxis SCDs Full Code as per discussion with pt Follows with Dr Massimo Monroe for routine care Admission and Anticipated Discharge Date Admission Date: November 22, 2020 Subjective Patient had an HCG of 6 on 11/22 which dropped to 5 on 11/24, she reports vaginal blood spotting and thinks she is having a miscarriage. We discussed there is high suspicion for cholangitis in view of her fever and elevated LFTs and she agreed for ERCP understanding the risk of sedation in the event this is a viable which does not seem to be due to lack of HCG doubling. Please consult ENTRY LEVEL MECHANICAL ENGINEER for this after the ERCP. 11/24/2020 The patient was seen and examined in medical telemetry unit She has been complaining of increasing pain in the abdomen without any nausea and or vomiting She will go for ERCP this afternoon 11/25/2020 The patient was seen and examined in medical telemetry unit She has been feeling much better and denies any symptoms Her diet was advanced and the Dilaudid was stopped If she can tolerate the diet she will be discharged home this afternoon 11/26/2020 The patient was seen and examined in medical telemetry unit She was sleeping this morning and after waking up complained to have severe pain in the abdomen that radiates to the back She tolerated her breakfast this morning without any other symptoms She will be given Toradol for pain control but no more increasing doses of Dilaudid Review of Systems Review of Systems: All systems reviewed and are unremarkable except as noted below Gastrointestinal: To abdominal pain without any distention, nausea and or vomiting Physical Exam Physical Exam: Lying in bed with some discomfort due to abdominal pain Constitutional: well developed, well nourished, + ill appearing and average body habitus Eyes: PERRL, conjunctivae normal, anicteric sclerae ENMT: external ear and nose normal, oropharynx normal Neck: trachea midline, no thyromegaly Respiratory: no respiratory distress and no cough Auscultation: lungs clear to auscultation bilaterally Cardiovascular: Rate/Rhythm: regular rate and regular rhythm; not tachycardic Heart Sounds: normal S1 and normal S2; no murmur Extremities: no edema Gastrointestinal (Abdomen): Inspection/Auscultation: + abdomen distended and normal bowel sounds Percussion/Palpation: + abdomen tender and abdomen soft Musculoskeletal: Arthritis in any joint Neurologic: Alert, awake and oriented x3 Lymphatic: no cervical or axillary lymphadenopathy Results & Data Results & Data ([facility]) Vital Signs (Past 12 Hours) Vital Signs Temp Pulse Pulse Pulse Resp BP Pulse Ox 11/26/20 11:10 36.5 C 62 19 117/76 95 11/26/20 07:51 36.8 C 60 19 151/90 H 94 11/26/20 07:39 59 L 11/26/20 06:26 58 L 11/26/20 03:00 36.9 C 64 18 145/87 H 94 Medications Administered Current Inpatient Medications Acetaminophen (Acetaminophen 325 Mg Tab) 650 mg PO Q4H PRN PRN Reason: Pain or Fever Stop: 12/22/20 18:31 Last Admin: 11/26/20 08:24 Dose: 650 mg Documented by: Bupropion HCl (Bupropion Xl 300 Mg Tabcr) 300 mg PO DAILY [facility] Stop: 12/23/20 08:59 Last Admin: 11/26/20 08:03 Dose: 300 mg Documented by: Hydromorphone HCl (Hydromorphone Inj 0.5 Mg/0.5 Ml Syr) 0.5 mg IV Q6H PRN PRN Reason: Pain Stop: 12/09/20 13:30 Last Admin: 11/26/20 12:21 Dose: 0.5 mg Documented by: Hydroxyzine HCl (Hydroxyzine Hcl 25 Mg Tab) 50 mg PO TID PRN PRN Reason: Anxiety Stop: 12/22/20 18:31 Last Admin: 11/26/20 08:25 Dose: 50 mg Documented by: Promethazine HCl 12.5 mg/ (Sodium Chloride) 50.5 mls @ 202 mls/hr IV Q6H PRN PRN Reason: Nausea And Vomiting Stop: 12/22/20 18:31 Ciprofloxacin (Cipro / D5w) 400 mg in 200 mls @ 100 mls/hr IV Q12H [facility]; Protocol Stop: 12/03/20 09:44 Last Infusion: 11/26/20 13:43 Dose: Infused Documented by: Metronidazole (Flagyl) 500 mg in 100 mls @ 100 mls/hr IV Q8H [facility] Stop: 12/03/20 09:44 Last Infusion: 11/26/20 11:38 Dose: Infused Documented by: Melatonin (Melatonin 3 Mg Tab) 3 mg PO HS PRN PRN Reason: Sleep Stop: 12/26/20 00:35 Last Admin: 11/26/20 00:50 Dose: 3 mg Documented by: Miscellaneous (Remove Nicoderm Patch) 1 ea N/A DAILY@0859 [facility] Stop: 12/23/20 08:58 Last Admin: 11/26/20 08:05 Dose: Not Given Documented by: Multivitamins (Multivitamin Tab) [facility] Stop: 12/23/20 08:59 Last Admin: 11/26/20 08:02 Dose: 1 tab Documented by: Nicotine (Nicotine 14 Mg/24 Hr Patch) 14 mg TD QAM [facility] Stop: 12/22/20 19:14 Last Admin: 11/26/20 08:04 Dose: Not Given Documented by: Ondansetron HCl (Ondansetron Inj 2 Mg/Ml 2 Ml Vial) 4 mg IV Q6H PRN PRN Reason: Nausea And Vomiting Stop: 12/22/20 15:44 Last Admin: 11/26/20 08:24 Dose: 4 mg Documented by: Venlafaxine HCl (Venlafaxine Hcl Xr 150 Mg Capxr) 300 mg [facility] Stop: 12/23/20 08:59 Last Admin: 11/26/20 08:02 Dose: 300 mg Documented by:
[2020-11-26] MEDS: KETOROLAC TROMETHAMINE 15 MG/ML VIAL IV PRN ×2 (15:46→22:39)
[2020-11-27] MEDS: HYDROmorphone INJ 0.5 MG/0.5 ML SYR IV PRN ×2 (00:52→08:08)
[2020-11-27] MEDS ORDERED: oxyCODONE HCL IR 5 MG TAB (IMMEDIATE RELEASE) PO STA ×2 (02:08→03:10)
[2020-11-27] MEDS: metroNIDAZOLE 500 MG/100 ML BAG IV SCH ×2 (02:09→10:18)
[2020-11-27] MEDS ORDERED: KETOROLAC TROMETHAMINE 15 MG/ML VIAL IV ONE (02:15)
[2020-11-27] MEDS: KETOROLAC TROMETHAMINE 15 MG/ML VIAL IV PRN ×2 (04:45→10:57)
[2020-11-27] MEDS: NICOTINE 14 MG/24 HR PATCH TD SCH (08:05)
[2020-11-27] MEDS: buPROPion XL 300 MG TABCR PO SCH (08:07)
[2020-11-27] MEDS: VENLAFAXINE HCL XR 150 MG CAPXR PO SCH (08:08)
[2020-11-27] MEDS: MULTIVITAMIN TAB PO SCH (08:08)
[2020-11-27 09:25] LABS: Albumin Level 2.8 gm/dl (3.4-5.0); BUN Creatinine Ratio 6.5 (10-20); Calcium 8.8 mg/dl (8.5-10.1); Creatinine Clr Calc Pharmacy 130.1 ml/min; Est GFR (African American) 135.9 ml/min; Est GFR (Non-African American) 117.2 ml/min; Magnesium 2.6 mg/dl (1.8-2.4); Phosphorus 3.4 mg/dl (2.5-4.9); Potassium 3.5 mmol/L (3.5-5.1)
[2020-11-27 09:33] LABS: Albumin Globulin Ratio 0.7 (0.9-2); Bilirubin,Total 0.3 mg/dl (0.2-1); Globulin 3.8 gm/dl (2.5-4.0); Total Protein 6.6 gm/dl (6.4-8.2)
[2020-11-27] MEDS ORDERED: oxyCODONE/ACETAMINOPHEN 5mg/325mg TAB PO PRN (09:58)
[2020-11-27 10:59] VITALS: PULSE 64; TEMP 97.5; O2SAT 98
[2020-11-27] MEDS ORDERED: CIPROFLOXACIN 500 MG TAB PO SCH (11:00)
--- NOTE | 2020-11-27 12:28 | Hospitalist Progress Note ---
Date of Service November 27, 2020 Assessment & Plan (1) Acute on chronic pancreatitis: Plan: Recurrent pancreatitis due to alcoholism Patient is 35-year-old female with PMH history alcoholism, alcohol withdrawal seizures, history substance abuse, pancreatitis, pancreatic stricture and ductal leak and PD stent in 08/2019, PD stent removed 03/16/2020, chronic back pain, depression, history of suicide attempt presented to ER with complaint of abdominal pain x 1 day, N/V. In ER patient afebrile, P:114 down to 83, P1 /, 98% on room air. No leukocytosis. Lactate: 1.4 T bili: 1.0, AST: 282, ALT: 168, alk phos: 412, lipase: 342 CT abdomen pelvis: Findings suggestive of chronic pancreatitis with superimposed acute inflammatory process and possible abscess formation. Peripancreatic soft tissue edema is also extending to the duodenal wall, loop of descending colon and left paracolic gutter. Hepatic steatosis and hepatomegaly are improved since prior. Questionable area of decreased attenuation within subcapsular aspect of segment IVb, could be related to perfusion versus other etiology. Received IV Tylenol, Benadryl 25 mg IV, Pepcid 20 mg IV, Reglan 10 mg IV, morphine 8 mg IV, 1 L NSS, 1 banana bag NPO ,IV LR@200ml/hr Antiemetics, pain control as needed GI consult, recommend no antibiotics at this time-appreciate input and recommendation Increasing pain in the abdomen with radiation to back Lipase level has been normalized Dilaudid ptosis is decreased from .5 to 1 mg q. 6 hourly as needed Status post ERCP and biliary stent placement Has been doing much better following the procedure We will advance diet as tolerated-likely discharge tomorrow She will need to have a CAT scan of the abdomen and pelvis in 4 weeks to assess the progression of the pancreatic pseudocyst and repeat ERCP in 6 weeks to remove the stent Has been tolerating regular diet and he still complains abdominal pain Will give Toradol as needed for pain control Her labs remain unremarkable with normal lipase Still has pain in the abdomen following foot and she was given a small dose of Percocet She will be discharged home this afternoon Constipation Likely secondary to use of narcotics Received milk of magnesia yesterday without any bowel movement Will be given another dose of milk of magnesia today with Senokot Possible Admission hCG was elevated to 6 She complained to have some vaginal bleeding yesterday 11/22/2020 HCG level was noted to be 5 today 07/24/2020 Possible miscarriage-Will need RADIO PERFORMER appointment as an outpatient (2) Transaminitis: Plan: T bili: 1.0, AST: 282, ALT: 168, alk phos: 412, lipase: 342 Monitor LFTs-are much better (3) Hypokalemia: Plan: K: 3.3 Replace and monitor-normalized (4) Hypomagnesemia: Plan: Magnesium: 1.7 Replace and monitor (5) Hypophosphatemia: Plan: Phosphorus: 2.1 Replace and monitor Phosphate was replaced again today (6) Positive test: Plan: HC Repeat in 48 hours We will repeat hCG level tomorrow Patient started to have vaginal bleeding Will need to make an appointment with your RADIO PERFORMER for a follow-up regarding this mi scarriage (7) History of alcoholism: Plan: History alcohol withdrawal seizure in past Pt reports cut back and now drinks several beers on the weekends Last drink 3 beers 3 days ago EtOH level:<3.0 Recommend alcohol cessation (8) History of substance abuse: Plan: Denies any recent or current drug use (9) Depression: Plan: History of suicide attempt in the past Currently reports mood stable. Denies suicidal ideations On bupropion, hydroxyzine, venlafaxine (10) Tobacco use: Plan: Smoking cessation encouraged DVT Prophylaxis SCDs Full Code as per discussion with pt Follows with Dr Massimo Monroe for routine care Admission and Anticipated Discharge Date Admission Date: November 22, 2020 Subjective Patient had an HCG of 6 on 11/22 which dropped to 5 on 11/24, she reports vaginal blood spotting and thinks she is having a miscarriage. We discussed there is high suspicion for cholangitis in view of her fever and elevated LFTs and she agreed for ERCP understanding the risk of sedation in the event this is a viable which does not seem to be due to lack of HCG doubling. Please consult RADIO PERFORMER for this after the ERCP. 11/24/2020 The patient was seen and examined in medical telemetry unit She has been complaining of increasing pain in the abdomen without any nausea and or vomiting She will go for ERCP this afternoon 11/25/2020 The patient was seen and examined in medical telemetry unit She has been feeling much better and denies any symptoms Her diet was advanced and the Dilaudid was stopped If she can tolerate the diet she will be discharged home this afternoon 11/26/2020 The patient was seen and examined in medical telemetry unit She was sleeping this morning and after waking up complained to have severe pain in the abdomen that radiates to the back She tolerated her breakfast this morning without any other symptoms She will be given Toradol for pain control but no more increasing doses of Dilaudid 11/27/2020 The patient was seen and examined in medical telemetry unit She complains of severe pain in the abdomen but tolerated her breakfast She has a strongly advised to use less of narcotics pain medication She is constipated and was given another dose of milk of magnesia and Senokot in the hospital She will be discharged this afternoon Review of Systems Review of Systems: All systems reviewed and are unremarkable except as noted below Gastrointestinal: To abdominal pain without any distention, nausea and or vomiting Physical Exam Physical Exam: Lying in bed with some discomfort due to abdominal pain Constitutional: well developed, well nourished, + ill appearing and average body habitus Eyes: PERRL, conjunctivae normal, anicteric sclerae ENMT: external ear and nose normal, oropharynx normal Neck: trachea midline, no thyromegaly Respiratory: no respiratory distress and no cough Auscultation: lungs clear to auscultation bilaterally Cardiovascular: Rate/Rhythm: regular rate and regular rhythm; not tachycardic Heart Sounds: normal S1 and normal S2; no murmur Extremities: no edema Gastrointestinal (Abdomen): Inspection/Auscultation: + abdomen distended and normal bowel sounds Percussion/Palpation: + abdomen tender and abdomen soft Musculoskeletal: No acute arthritis in any joint Neurologic: Alert, awake and oriented x3. No focal sensory and motor deficit appreciated Lymphatic: no cervical or axillary lymphadenopathy Results & Data Results & Data ([facility]) Vital Signs (Past 12 Hours) Vital Signs Temp Pulse Resp BP Pulse Ox 11/27/20 10:59 36.4 C L 64 16 153/94 H 98 11/27/20 07:39 36.9 C 63 16 136/92 97 11/27/20 03:02 36.9 C 63 16 146/89 H 96 Laboratory Results [facility] 11/27/20 08:29 Sodium 138 Potassium 3.5 Chloride 103 Carbon Dioxide 27 BUN 4 L Creatinine 0.64 Glucose 146 H Calcium 8.8 Liver Function 11/27/20 Range/Units 08:29 Total Bilirubin 0.3 (0.2-1) mg/dl AST 15 (15-37) U/L ALT 36 (12-78) U/L Alkaline Phosphatase 265 H (45-117) U/L Albumin 2.8 L (3.4-5.0) gm/dl Medications Administered Current Inpatient Medications Acetaminophen (Acetaminophen 325 Mg Tab) 650 mg PO Q4H PRN PRN Reason: Pain or Fever Stop: 12/22/20 18:31 Last Admin: 11/26/20 08:24 Dose: 650 mg Documented by: Bupropion HCl (Bupropion Xl 300 Mg Tabcr) 300 mg PO DAILY [facility] Stop: 12/23/20 08:59 Last Admin: 11/27/20 08:07 Dose: 300 mg Documented by: Ciprofloxacin (Ciprofloxacin 500 Mg Tab) 500 mg PO BID [facility]; Protocol Stop: 12/03/20 10:59 Last Admin: 11/27/20 12:21 Dose: 500 mg Documented by: Hydroxyzine HCl (Hydroxyzine Hcl 25 Mg Tab) 50 mg PO TID PRN PRN Reason: Anxiety Stop: 12/22/20 18:31 Last Admin: 11/26/20 08:25 Dose: 50 mg Documented by: Promethazine HCl 12.5 mg/ (Sodium Chloride) 50.5 mls @ 202 mls/hr IV Q6H PRN PRN Reason: Nausea And Vomiting Stop: 12/22/20 18:31 Ketorolac Tromethamine (Ketorolac Tromethamine 15 Mg/Ml Vial) 15 mg IV Q6H PRN PRN Reason: Pain Stop: 12/01/20 15:27 Last Admin: 11/27/20 10:57 Dose: 15 mg Documented by: Melatonin (Melatonin 3 Mg Tab) 3 mg PO HS PRN PRN Reason: Sleep Stop: 12/26/20 00:35 Last Admin: 11/26/20 00:50 Dose: 3 mg Documented by: Metronidazole (Metronidazole 500 Mg Tab) 500 mg PO BID [facility]; Protocol Stop: 12/03/20 20:59 Miscellaneous (Remove Nicoderm Patch) 1 ea N/A DAILY@0859 [facility] Stop: 12/23/20 08:58 Last Admin: 11/27/20 08:05 Dose: Not Given Documented by: Multivitamins (Multivitamin Tab) 1 tab PO [facility] Stop: 12/23/20 08:59 Last Admin: 11/27/20 08:08 Dose: 1 tab Documented by: Nicotine (Nicotine 14 Mg/24 Hr Patch) 14 mg TD [facility] Stop: 12/22/20 19:14 Last Admin: 11/27/20 08:05 Dose: Not Given Documented by: Ondansetron HCl (Ondansetron Inj 2 Mg/Ml 2 Ml Vial) 4 mg IV Q6H PRN PRN Reason: Nausea And Vomiting Stop: 12/22/20 15:44 Last Admin: 11/26/20 08:24 Dose: 4 mg Documented by: Oxycodone/Acetaminophen (Oxycodone/Acetaminophen 5mg/325mg Tab) 1 tab PO Q8H PRN PRN Reason: Pain Stop: 12/11/20 09:57 Venlafaxine HCl (Venlafaxine Hcl Xr 150 Mg Capxr) 300 mg PO [facility] Stop: 12/23/20 08:59 Last Admin: 11/27/20 08:08 Dose: 300 mg Documented by:
[2020-11-27 14:23] VITALS: BP 132/80
[2020-11-27] MEDS ORDERED: metroNIDAZOLE 500 MG TAB PO SCH (21:00)
--- NOTE | 2020-11-28 07:18 | Discharge Summary ---
Date of Service November 28, 2020 Admission HPI Per Admitting Provider Patient is 35-year-old female with PMH history alcoholism, alcohol withdrawal seizures, history substance abuse, pancreatitis, pancreatic stricture and ductal leak and PD stent in 08/2019, PD stent removed 03/16/2020, chronic back pain, depression, history of suicide attempt presented to ER with complaint of abdominal pain x1 day. Patient states yesterday started with upper abdominal pain that radiates up to chest and back. Described as ache with intermittent stabbing pain. Taking tylenol without relief. Also complains of nausea. Reports vomited 3 times yesterday. No vomiting today. Denies diarrhea. Reports bowel movement yesterday. Feels chills, has not taken temperature, she thinks chills are from pain. Patient denies recent or current substance use. She states she is drinking several beers on the weekends. Last drink 3 beers 3 days ago. Patient reports LMP was last week, unsure of day. Denies missed periods. 6, para 5. Denies hematemesis, melena, hematochezia. Denies diaphoresis, SAAB, dizziness, syncope, vision changes, neck pain, CP, SOB, orthopnea, palpitations, cough, sore throat, choking, otalgia, rhinorrhea, paresthesias, weakness, extremity weakness, extremity edema, rashes, urinary symptoms. Admission Exam Per Admitting Provider Physical Exam: General: no acute distress, WDWN, appears older than stated age Head: normocephalic, atraumatic Eyes: PERRL, EOM's intact, conjunctiva non-injected, anicteric ENT: normal inspection external ears, nose, mucous membranes moist Neck: supple, trachea midline Lungs: clear, no respiratory distress, no wheezing/rhonchi/rales CV: RRR, no murmur, no pretibial edema Abd: normal BS, soft, + tenderness to palpation RUQ, epigastric and LUQ Ext: no cyanosis, no calf tenderness Neuro: A&O x 3, no focal deficits noted, normal affect Skin: warm, dry Principal Diagnosis Acute on chronic pancreatitis secondary to alcoholism, pancreatic pseudocyst, status post ERCP with biliary stent placement Discharge Exam Constitutional well developed, well nourished, + ill appearing and average body habitus Eyes PERRL, conjunctivae normal, anicteric sclerae ENMT external ear and nose normal, oropharynx normal Neck trachea midline, no thyromegaly Respiratory no respiratory distress and no cough Auscultation: lungs clear to auscultation bilaterally Cardiovascular Rate/Rhythm: regular rate and regular rhythm; not tachycardic Heart Sounds: normal S1 and normal S2; no murmur Extremities: no edema Gastrointestinal (Abdomen) Inspection/Auscultation: + abdomen distended and normal bowel sounds Percussion/Palpation: + abdomen tender and abdomen soft Lymphatic no cervical or axillary lymphadenopathy Discharge Data Allergies Allergy/AdvReac Type Severity Reaction Status Date / Time Penicillins Allergy Intermediate HIVES Verified 11/22/20 09:52 Consultations 11/22/20 12:56 ED Decision to Admit Stat 11/22/20 14:32 Consult Gastroenterology Routine Procedures Performed Operation Date: 11/24/20 08:55 Actual Procedures p Endoscopic Retrograde Cholangiopancreatogram(Not Applicable) - Mae Shea MD Ordered Studies 11/22/20 09:14 CT abd pelvis IV con only Stat 11/23/20 08:22 MR MRCP Urgent 11/24/20 15:38 FL ERCP biliary ductal Routine Hospital Course (1) Acute on chronic pancreatitis: Recurrent pancreatitis due to alcoholism Patient is 35-year-old female with PMH history alcoholism, alcohol withdrawal seizures, history substance abuse, pancreatitis, pancreatic stricture and ductal leak and PD stent in 08/2019, PD stent removed 03/16/2020, chronic back pain, depression, history of suicide attempt presented to ER with complaint of abdominal pain x 1 day, N/V. In ER patient afebrile, P:114 down to 83, P1 11/87, 98% on room air. No leukocytosis. Lactate: 1.4 T bili: 1.0, AST: 282, ALT: 168, alk phos: 412, lipase: 342 CT abdomen pelvis: Findings suggestive of chronic pancreatitis with superimposed acute inflammatory process and possible abscess formation. Peripancreatic soft tissue edema is also extending to the duodenal wall, loop of descending colon and left paracolic gutter. Hepatic steatosis and hepatomegaly are improved since prior. Questionable area of decreased attenuation within subcapsular aspect of segment IVb, could be related to perfusion versus other etiology. Received IV Tylenol, Benadryl 25 mg IV, Pepcid 20 mg IV, Reglan 10 mg IV, morphine 8 mg IV, 1 L NSS, 1 banana bag NPO ,IV LR@200ml/hr Antiemetics, pain control as needed GI consult, recommend no antibiotics at this time-appreciate input and recommendation Increasing pain in the abdomen with radiation to back Lipase level has been normalized Dilaudid ptosis is decreased from .5 to 1 mg q. 6 hourly as needed Status post ERCP and biliary stent placement Has been doing much better following the procedure We will advance diet as tolerated-likely discharge tomorrow She will need to have a CAT scan of the abdomen and pelvis in 4 weeks to assess the progression of the pancreatic pseudocyst and repeat ERCP in 6 weeks to remove the stent Has been tolerating regular diet and he still complains abdominal pain Will give Toradol as needed for pain control Her labs remain unremarkable with normal lipase Still has pain in the abdomen following foot and she was given a small dose of Percocet She will be discharged home this afternoon Constipation Likely secondary to use of narcotics Received milk of magnesia yesterday without any bowel movement Will be given another dose of milk of magnesia today with Senokot Possible Admission hCG was elevated to 6 She complained to have some vaginal bleeding yesterday 11/22/2020 HCG level was noted to be 5 today 07/24/2020 Possible miscarriage-Will need [employer] appointment as an outpatient (2) Transaminitis: T bili: 1.0, AST: 282, ALT: 168, alk phos: 412, lipase: 342 Monitor LFTs-are much better (3) Hypokalemia: K: 3.3 Replace and monitor-normalized (4) Hypomagnesemia: Magnesium: 1.7 Replace and monitor (5) Hypophosphatemia: Phosphorus: 2.1 Replace and monitor Phosphate was replaced again today (6) Positive test: HC Repeat in 48 hours We will repeat hCG level tomorrow Patient started to have vaginal bleeding Will need to make an appointment with your [employer] for a follow-up regarding this miscarriage (7) History of alcoholism: History alcohol withdrawal seizure in past Pt reports cut back and now drinks several beers on the weekends Last drink 3 beers 3 days ago EtOH level:<3.0 Recommend alcohol cessation (8) History of substance abuse: Denies any recent or current drug use (9) Depression: History of suicide attempt in the past Currently reports mood stable. Denies suicidal ideations On bupropion, hydroxyzine, venlafaxine (10) Tobacco use: Smoking cessation encouraged DVT Prophylaxis SCDs Full Code as per discussion with pt Follows with Dr Massimo Monroe for routine care Total Time Total Time Spent Total Time Spent (In Minutes): 35 minutes Discharge Plan Discharge Items Patient Disposition: Home - Self-Care Reason For Visit: PANCREATITIS Discharge Diagnosis: Acute on chronic pancreatitis secondary to alcoholism, pancreatic pseudocyst, status post ERCP with biliary stent placement Condition on Discharge: Fair Activity: Resume your previous activity Non-emergency contact: Primary Care Provider Call non-emergency contact if: you have any medication questions and your symptoms worsen Follow-up/Referrals: Massimo Monroe DO [Primary Care Provider] - (Date & Time 12/04/2020 1:40 PM Provider Massimo Monroe DO Department [facility] ) Diet: Regular Addtl Attending Provider Instructions: Please take precautions to avoid fall Try to take a small meals at 1 time Please keep your appointment with your primary care physician and retanned leather roller Do not drink anymore alcohol You will need to have a repeat CAT scan of the abdomen and pelvis in 4 weeks to assess pancreatic pseudocyst and An ERCP in 6 weeks to remove the biliary stent-your retanned leather roller will arrange for the procedure Pending Studies at Discharge: No Stand-Alone Forms: My [facility], Smoking Cessation Medications and DC Order Prescriptions: New metronidazole 500 mg Tablet 500 mg PO BID 5 Days Qty: 10 RF: 0 ciprofloxacin HCl 500 mg Tablet 500 mg PO BID 5 Days Qty: 10 RF: 0 oxycodone-acetaminophen [Percocet] 5-325 mg Tablet 1 tab PO Q8H PRN (Reason: pain) 5 Days Qty: 10 RF: 0 nicotine 14 mg/24 hr patch 24 hour 1 patch transdermal DAILY Qty: 28 RF: 0 Lactinex 1 million cell tablet,chewable 1 tab PO BID Qty: 30 RF: 0 Continued venlafaxine 150 mg capsule,extended release 24hr 300 mg PO QAM Qty: 7 RF: 0 hydroxyzine pamoate [Vistaril] 50 mg capsule 50 mg PO TID PRN (Reason: Anxiety) Qty: 21 RF: 0 multivitamin Tablet 1 tab PO QAM RF: 0 acetaminophen [Tylenol Extra Strength] 500 mg Tablet 1,000 mg PO Q6H PRN (Reason: Pain) RF: 0 bupropion HCl 300 mg tablet extended release 24 hr 300 mg PO DAILY RF: 0 Discharge Orders: Discharge Order (Routine); Ordered 11/27/20 Ordered By: Gildardo Veras Admission Data Admit Date/Time: 11/22/20 13:46 Attending Provider: Gildardo Veras Admit Provider: Mary Herrera Primary Care Provider: Massimo Monroe Other Providers: Mary Herrera ; Mae Shea Other Interventions: Discharge Summary Assessment (RN) Last Done: 11/27/20 14:22
--- NOTE | 2020-12-04 11:11 | Coding Query ---
To promote full compliance with coding requirements relating to patient care, provider participation is requested in all cases of claim manager uncertainty. Please assist us with the question(s) below: Coding Question(s): The diagnosis(es) below was documented in the chart on the ERCP Report and in Progress Notes, then subsequently fell off all further documentation on the Discharge Summary. Please indicate if it is still a possible diagnosis or ruled out. Physician's Response(s): SUSPECTED CHOLANGITIS (documentation begins on ERCP and is documented on Progress Notes 11/24 to 11/27) ( + ) Diagnosed and POA ( ) Diagnosed and not POA ( ) Ruled out ( ) Other (please specify) BILIARY STENOSIS (documented on ERCP) ( + ) Diagnosed and POA ( ) Diagnosed and not POA ( ) Ruled out ( ) Other (please specify) MTDD
== END 2020-11-27 14:37 | disposition home or self-care (01) | DRG 444 ==
LOC: ED 08:40 → 2W 13:46 → SUATTDRO 13:46 → 2W 17:44
DX: K86.1 Other chronic pancreatitis; Z79.899 Other long term (current) drug therapy; K83.8 Other specified diseases of biliary tract; K86.0 Alcohol-induced chronic pancreatitis; O03.9 Complete or unspecified spontaneous abortion without complication; K59.03 Drug induced constipation; Z91.5 Personal history of self-harm; F19.11 Other psychoactive substance abuse, in remission; K85.20 Alcohol induced acute pancreatitis without necrosis or infection; Z32.01 Encounter for pregnancy test, result positive; F32.9 Major depressive disorder, single episode, unspecified; K83.09 Other cholangitis; F17.210 Nicotine dependence, cigarettes, uncomplicated; K86.3 Pseudocyst of pancreas; Z88.0 Allergy status to penicillin; F10.21 Alcohol dependence, in remission; K83.1 Obstruction of bile duct; E87.6 Hypokalemia; E83.42 Hypomagnesemia; E83.39 Other disorders of phosphorus metabolism; T40.605A Adverse effect of unspecified narcotics, initial encounter

== ENCOUNTER 2021-03-14 11:57 | Inpatient (IN) ==
[2021-03-14 12:44] LABS: Hematocrit (blood only) 37.1 % (37-47); Hemoglobin 12.8 g/dL (12.0-16.0); Immature Granulocytes # (auto) 0.01 K/uL (0.00-0.02); Immature Granulocytes % (auto) 0.1 %; Lymphocytes # (auto) 1.01 K/uL (1.2-3.4); Lymphocytes % (auto) 15.1 %; Mean Corpuscular Hgb Conc 34.5 g/dL (32-36); Mean Corpuscular Volume 95.6 fL (80-100); Mean Platelet Volume 11.1 fL (7.4-10.4); Monocytes # (auto) 1.89 K/uL (0.11-0.59); Monocytes % (auto) 28.2 %; Neutrophils % (auto) 56.6 %; Platelet Count 134 K/uL (130-400); RDW Coefficient of Variation 13.7 % (11.5-14.5); Red Blood Count 3.88 M/uL (4.2-5.4); White Blood Count 6.71 K/uL (4.8-10.8)
[2021-03-14] MEDS ORDERED: SODIUM CHLORIDE 0.9% 1000ML 1,000 ML IV ONE (12:46)
--- NOTE | 2021-03-14 12:49 | Emergency Department Note ---
Impression & Plan Acute on chronic pancreatitis, COVID-19 virus infection ED Provider Note CHIEF COMPLAINT: Abdominal pain HISTORY OF PRESENTING ILLNESS: This is a 35-year-old female who presents to the emergency department by private vehicle with complaint of diffuse abdominal pain for the past 2 days. She states she feels bloated. She states the pain is constant, feels like pressure and burning, is worse with movement and better with rest, and she currently rates the pain 9/10. She denies any history of similar abdominal problems or symptoms. She did not try any medications for her pain. She has had associated nausea, but no vomiting. She has had some chills off and on but did not check her temperature. She has had some muscle aches and headaches as well. She notes that she had diarrhea a few days ago, but has not had any since her belly pain started and denies constipation. She denies bloody or black stools. Her last bowel movement was yesterday. She does note that her last menstrual period was 3 months ago, she sometimes has irregular periods, but states this is unusual for her. She does note that she took a test at home a month ago and it was negative. She is not currently on any form of control and notes that she is sexually active. She denies any concerns for sexually transmitted infections. She notes a history of appendectomy, no other abdominal surgeries. She is also concerned about COVID-19 and would like to be tested for this. She does note that she is fully vaccinated. REVIEW OF SYSTEMS: A complete 10 point review of systems was reviewed with the patient with pertinent positives and negatives as per history of present illness. All else were negative. PAST MEDICAL HISTORY: History of alcoholism, alcohol withdrawal and seizures, depression, history of substance abuse, history of suicide attempt with overdose, pancreatitis, chronic back pain, history of appendectomy and ERCP SOCIAL HISTORY: Lives at home, she is a current everyday smoker, + alcohol, + marijuana ALLERGIES: Reviewed in chart and with the patient PHYSICAL EXAM: CONSTITUTIONAL: Pleasant and cooperative. Nontoxic-appearing and in no acute distress. Moderately dehydrated. HEENT: Normocephalic, atraumatic. Pharynx normal. Dry mucous membranes. NECK: Supple, full active range of motion without discomfort. RESPIRATORY: Clear to auscultation bilaterally with no wheezing, crackles, rhonchi or stridor. Equal expansion bilaterally. CARDIOVASCULAR: Regular rate and rhythm with no murmurs, rubs or gallops. Normal peripheral perfusion. No edema. GASTROINTESTINAL: Tender to palpation in the left upper quadrant, with mild diffuse tenderness throughout the abdomen. Abdomen is soft and nondistended. No palpable masses or HSM. Bowel sounds present in all quadrants. No CVA tenderness bilaterally. MUSCULOSKELETAL: Full range of motion of all joints without discomfort. INTEGUMENTARY: No rash or other significant dermatologic conditions noted. NEUROLOGIC: Alert and oriented X 4 with normal affect. Normal strength and sensation in all 4 extremities. Normal speech. Normal gait observed. ED COURSE AND MEDICAL DECISION MAKING: CC: Patient presenting with complaint of abdominal pain DIFFERENTIAL DIAGNOSIS: Includes, but not limited to pancreatitis, gastro enteritis, gastritis, peptic ulcer disease, biliary pathology, ovarian cyst, ovarian torsion, ectopic , diverticulitis, UTI, bowel obstruction, inflammatory bowel disease, renal colic, hernia, volvulus, constipation, COVID- 19 infection, dehydration, electrolyte abnormalities, drug-seeking behavior, among others. INTERPRETATION OF LABS: None no leukocytosis, no anemia, normal platelets, mild hyponatremia and hypokalemia, no other significant electrolyte abnormalities, normal renal function, elevated alk phos, otherwise normal liver enzymes and normal lipase. UA appears contaminated, urine culture pending. Urine negative. COVID-19 test positive. MEDICATION RECONCILIATION: I attest that I have personally reviewed the patient's current medication list. INITIAL VITAL SIGNS REVIEW: I reviewed the patient's initial vital signs and interpret them as follows: T: Afebrile; BP: Mildly hypertensive; HR: Mildly tachycardic; RR: Within normal limits; Pulse Ox: Within normal limits on room air. MDM SUMMARY: Patient was evaluated in the triage room due to high ED volumes and long wait times, history and physical exam performed. Patient is alert and oriented, in no acute distress, resting calmly in a chair. She is afebrile and nontoxic-appearing, but is noted to be mildly tachycardic and appears dehydrated clinically. She has tenderness to palpation throughout the abdomen, but most tender in the left upper quadrant, no acute abdomen. The patient was not very forthcoming about her history, which was evident after review of her chart. Review of the patient's chart noting multiple ED visits over the past 2 years for abdominal pain, acute pancreatitis, alcohol abuse and withdrawal, and polysubstance overdose. Most recently, the patient was evaluated on 11/22/2020 and was admitted for acute on chronic pancreatitis. Orders were placed for labs, UA and urine , COVID-19 testing, IV fluid bolus for hydration, and CT abdomen/pelvis with IV contrast to evaluate for abdominal pain. Patient was placed back in the waiting room pending exam room availability. Patient discussed with Dr. Frank, who agrees with my assessment, plan, and disposition. Labs and imaging reviewed, no significant lab abnormalities, no leukocytosis, liver enzymes and lipase are normal. No UTI. CT imaging did demonstrate findings consistent with acute on chronic pancreatiti s and spent throughout the pancreas, pseudocyst of the pancreatic neck as well as pseudocyst of the pancreatic tail. The patient was moved to room B10 and was reevaluated there. She was provided with IV morphine and IV Zofran for her pain and nausea. Patient was also noted to test positive for COVID-19, she was placed on isolation precautions. Chest x-ray was added on for further evaluation, this was reviewed and did not show any acute cardiopulmonary abnormality. Patient reassessed multiple times throughout ED stay, she has remained hemodynamically stable and afebrile, tachycardia is improved after IV fluids, and she reports her pain is improved with morphine. I spoke on the phone with Bere Kirk PA-C with the hospitalist team, who agrees to evaluate the patient for admission. The patient was updated on all results and plan for admission, she was agreeable to this plan. The patient was stable at the time of admission. The chart was completed utilizing [employer] Speech voice recognition software. Grammatical errors, random word insertions, pronoun errors, and incomplete sentences are an occasional consequence of this system due to software limitations, ambient noise, and hardware issues. Any formal questions or concerns about the content, text, or information contained within the body of this dictation should be directly addressed to the nurse practitioner for cla rification. Past Med/Surg History Medical History Acute on chronic pancreatitis Secondary to alcoholism Chronic back pain Depression Headache History of alcoholism History of seizures Hx of alcohol withdrawal seizures- ?? most recent History of substance abuse Prolonged Q-T interval on ECG Hx, not noted on most recent ECG 11/22/20* Surgical History S/P appendectomy S/P ERCP ERCP (11/24/20): Grade view 1, MAC#3, ETT 7 at [facility] Family History Other Diabetes Hypertension Social History Smoking Status: Current every day smoker Tobacco Type: Cigarettes Second Hand Exposure: No; Hx Alcohol Use: Yes Alcohol type: hard liquor Preferred Language: Khmer Communication Ability: Effective Visual Impairment: No Limitations Hearing Ability: Normal [employer] Required: No Beliefs That Will Affect Care: None marital status: Single Current Living Situation: Alone Current Living Situation Comment: Friend Feels Safe at Home: Yes Assistive Devices: None Allergies Allergies Allergy/AdvReac Type Severity Reaction Status Date / Time Penicillins Allergy Intermediate HIVES Verified 03/14/21 16:07 Home Meds Home Medications Medication Instructions Recorded Confirmed acetaminophen 500 mg tablet 1,000 mg PO Q6H PRN 11/22/20 03/14/21 (Tylenol Extra Strength) bupropion HCl 300 mg 24 hr tablet, 300 mg PO DAILY 11/22/20 03/14/21 extended release multivitamin 1 tab PO QAM 11/22/20 03/14/21 Previous Rx's Medication Instructions Recorded hydroxyzine pamoate 50 mg capsule 50 mg PO TID PRN #21 cap 03/21/20 (Vistaril) venlafaxine 150 mg 300 mg PO QAM #7 cap 03/21/20 capsule,extended release 24 hr Results & Data (ED) Vital Signs Vital Signs - 24 hr 03/14/21 12:12 03/14/21 14:57 03/14/21 16:00 Temperature 36.6 C Temperature Source Temporal Artery Scan Pulse Rate 115 H Pulse Rate [Right Finger] 93 H 91 H Pulse Rhythm [Right Finger] Regular Pulse Strength [Right Finger] Normal Respiratory Rate 16 16 20 Respiratory Effort / Characteristics Non-Labored Respiratory Depth Normal Blood Pressure 94/59 L Blood Pressure [Left Arm] 115/77 112/68 Blood Pressure Mean 70 Blood Pressure Mean [Left Arm] 89 82 Blood Pressure Position [Left Arm] Lying Pulse Oximetry 96 100 100 Oxygen Delivery Method Room Air Room Air Room Air Sepsis Recent Fever Within 48 Hours No Sepsis New/Unexplained Change in Mental Status No Sepsis Action Taken by Nursing No Action Required Laboratory Data Result diagrams: 03/14/21 12:28 03/14/21 12:28 Lab Results 03/14/21 03/14/21 03/14/21 Range/Units 12:28 12:28 12:28 WBC 6.71 (4.8-10.8) K/uL RBC 3.88 L (4.2-5.4) M/uL Hgb 12.8 (12.0-16.0) g/dL Hct 37.1 (37-47) % MCV 95.6 (80-100) fL MCH 33.0 (25-34) pg MCHC 34.5 (32-36) g/dL RDW Std Deviation 47.0 H (36.4-46.3) fL RDW Coeff of Meme 13.7 (11.5-14.5) % Plt Count 134 (130-400) K/uL MPV 11.1 H (7.4-10.4) fL Immature Gran % (Auto) 0.1 % Neut % (Auto) 56.6 % Lymph % (Auto) 15.1 % [place] % (Auto) 28.2 % Eos % (Auto) 0.0 % Baso % (Auto) 0.0 % Neut # (Auto) 3.80 (1.4-6.5) K/uL Lymph # (Auto) 1.01 L (1.2-3.4) K/uL [place] # (Auto) 1.89 H (0.11-0.59) K/uL Eos # (Auto) 0.00 (0-0.5) K/uL Baso # (Auto) 0.00 (0-0.2) K/uL Immature Gran # (Auto) 0.01 (0.00-0.02) K/uL Sodium 132 L (136-145) mmol/L Potassium 3.4 L (3.5-5.1) mmol/L Chloride 99 (98-107) mmol/L Carbon Dioxide 28 (21-32) mmol/L Anion Gap 5.0 (3-11) BUN 7 (7-18) mg/dl Creatinine 0.77 (0.6-1.2) mg/dl Est Cr Clr Drug Dosing 97.3 ml/min Est GFR ( Amer) 117.6 ml/min Est GFR (Non-Af Amer) 101.4 ml/min BUN/Creatinine Ratio 9.6 L (10-20) Glucose 100 H (70-99) mg/dl Calcium 9.3 (8.5-10.1) mg/dl Total Bilirubin 0.6 (0.2-1) mg/dl AST 16 (15-37) U/L ALT 34 (12-78) Alkaline Phosphatase 236 H (45-117) U/L C-Reactive Protein 37.50 H (0-0.29) mg/dl Total Protein 7.5 (6.4-8.2) gm/dl Albumin 3.1 L (3.4-5.0) gm/dl Globulin 4.4 H (2.5-4.0) gm/dl Albumin/Globulin Ratio 0.7 L (0.9-2) Lipase 153 (73-393) U/L Procalcitonin 10.45 H (0-0.5) ng/ml Urine Color Urine Appearance (Clear) Urine pH (4.5-7.5) Ur Specific [place] (1.000-1.030) Urine Protein (Negative) Urine Glucose (UA) (Negative) Urine Ketones (Negative) Urine Blood (Negative) Urine Nitrite (Negative) Urine Bilirubin (Negative) Urine Urobilinogen (Negative) Ur Leukocyte Esterase (Negative) Urine WBC (Auto) (0-5) /hpf Urine RBC (Auto) (0-4) /hpf U Hyaline Cast (Auto) (0-5) /lpf U Epithel Cells (Auto) (0-5) /lpf Urine Bacteria (Auto) (Negative) POC Ur Test (NEG) SARS-CoV-2 (PCR) (Negative) Influenza Type A (PCR) (Neg) Influenza Type B (PCR) (Neg) RSV (RT-PCR) (Neg) SARS-CoV-2, RNA, NAAT (NEGATIVE) 03/14/21 03/14/21 03/14/21 Range/Units 12:30 12:30 14:58 WBC (4.8-10.8) K/uL RBC (4.2-5.4) M/uL Hgb (12.0-16.0) g/dL Hct (37-47) % MCV (80-100) fL MCH (25-34) pg MCHC (32-36) g/dL RDW Std Deviation (36.4-46.3) fL RDW Coeff of Meme (11.5-14.5) % Plt Count (130-400) K/uL MPV (7.4-10.4) fL Immature Gran % (Auto) % Neut % (Auto) % Lymph % (Auto) % [place] % (Auto) % Eos % (Auto) % Baso % (Auto) % Neut # (Auto) (1.4-6.5) K/uL Lymph # (Auto) (1.2-3.4) K/uL [place] # (Auto) (0.11-0.59) K/uL Eos # (Auto) (0-0.5) K/uL Baso # (Auto) (0-0.2) K/uL Immature Gran # (Auto) (0.00-0.02) K/uL Sodium (136-145) mmol/L Potassium (3.5-5.1) mmol/L Chloride (98-107) mmol/L Carbon Dioxide (21-32) mmol/L Anion Gap (3-11) BUN (7-18) mg/dl Creatinine (0.6-1.2) mg/dl Est Cr Clr Drug Dosing ml/min Est GFR ( Amer) ml/min Est GFR (Non-Af Amer) ml/min BUN/Creatinine Ratio (10-20) Glucose (70-99) mg/dl Calcium (8.5-10.1) mg/dl Total Bilirubin (0.2-1) mg/dl AST (15-37) U/L ALT (12-78) Alkaline Phosphatase (45-117) U/L C-Reactive Protein (0-0.29) mg/dl Total Protein (6.4-8.2) gm/dl Albumin (3.4-5.0) gm/dl Globulin (2.5-4.0) gm/dl Albumin/Globulin Ratio (0.9-2) Lipase (73-393) U/L Procalcitonin (0-0.5) ng/ml Urine Color Dark Yellow Urine Appearance Clear (Clear) Urine pH 6.5 (4.5-7.5) Ur Specific [place] 1.024 (1.000-1.030) Urine Protein Trace H (Negative) Urine Glucose (UA) Negative (Negative) Urine Ketones Trace H (Negative) Urine Blood 2+ H (Negative) Urine Nitrite Negative (Negative) Urine Bilirubin 1+ H (Negative) Urine Urobilinogen Negative (Negative) Ur Leukocyte Esterase Trace H (Negative) Urine WBC (Auto) 5-10 H (0-5) /hpf Urine RBC (Auto) 0-4 (0-4) /hpf U Hyaline Cast (Auto) 1-5 (0-5) /lpf U Epithel Cells (Auto) >30 H (0-5) /lpf Urine Bacteria (Auto) 1+ H (Negative) POC Ur Test NEG (NEG) SARS-CoV-2 (PCR) (Negative) Influenza Type A (PCR) (Neg) Influenza Type B (PCR) (Neg) RSV (RT-PCR) (Neg) SARS-CoV-2, RNA, NAAT POSITIVE A* (NEGATIVE) 03/14/21 Range/Units 17:27 WBC (4.8-10.8) K/uL RBC (4.2-5.4) M/uL Hgb (12.0-16.0) g/dL Hct (37-47) % MCV (80-100) fL MCH (25-34) pg MCHC (32-36) g/dL RDW Std Deviation (36.4-46.3) fL RDW Coeff of Meme (11.5-14.5) % Plt Count (130-400) K/uL MPV (7.4-10.4) fL Immature Gran % (Auto) % Neut % (Auto) % Lymph % (Auto) % [place] % (Auto) % Eos % (Auto) % Baso % (Auto) % Neut # (Auto) (1.4-6.5) K/uL Lymph # (Auto) (1.2-3.4) K/uL [place] # (Auto) (0.11-0.59) K/uL Eos # (Auto) (0-0.5) K/uL Baso # (Auto) (0-0.2) K/uL Immature Gran # (Auto) (0.00-0.02) K/uL Sodium (136-145) mmol/L Potassium (3.5-5.1) mmol/L Chloride (98-107) mmol/L Carbon Dioxide (21-32) mmol/L Anion Gap (3-11) BUN (7-18) mg/dl Creatinine (0.6-1.2) mg/dl Est Cr Clr Drug Dosing ml/min Est GFR ( Amer) ml/min Est GFR (Non-Af Amer) ml/min BUN/Creatinine Ratio (10-20) Glucose (70-99) mg/dl Calcium (8.5-10.1) mg/dl Total Bilirubin (0.2-1) mg/dl AST (15-37) U/L ALT (12-78) Alkaline Phosphatase (45-117) U/L C-Reactive Protein (0-0.29) mg/dl Total Protein (6.4-8.2) gm/dl Albumin (3.4-5.0) gm/dl Globulin (2.5-4.0) gm/dl Albumin/Globulin Ratio (0.9-2) Lipase (73-393) U/L Procalcitonin (0-0.5) ng/ml Urine Color Urine Appearance (Clear) Urine pH (4.5-7.5) Ur Specific [place] (1.000-1.030) Urine Protein (Negative) Urine Glucose (UA) (Negative) Urine Ketones (Negative) Urine Blood (Negative) Urine Nitrite (Negative) Urine Bilirubin (Negative) Urine Urobilinogen (Negative) Ur Leukocyte Esterase (Negative) Urine WBC (Auto) (0-5) /hpf Urine RBC (Auto) (0-4) /hpf U Hyaline Cast (Auto) (0-5) /lpf U Epithel Cells (Auto) (0-5) /lpf Urine Bacteria (Auto) (Negative) POC Ur Test (NEG) SARS-CoV-2 (PCR) POSITIVE A* (Negative) Influenza Type A (PCR) Negative (Neg) Influenza Type B (PCR) Negative (Neg) RSV (RT-PCR) Negative (Neg) SARS-CoV-2, RNA, NAAT (NEGATIVE) Administered Medications Ciprofloxacin (Cipro / D5w) 400 mg in 200 mls @ 100 mls/hr IV NOW ONE; Protocol Stop: 03/14/21 20:14 Last Admin: 03/14/21 18:41 Dose: 100 mls/hr Documented by: [id number] Discontinued Medications Hydromorphone HCl (Hydromorphone Inj 0.5 Mg/0.5 Ml Syr) Confirm Administered Dose 0.5 mg .ROUTE .STK-MED ONE Stop: 03/14/21 19:19 Last Admin: 03/14/21 19:24 Dose: 0.5 mg Documented by: [id number] Sodium Chloride (Nss 1000ml) 1,000 mls @ 999 mls/hr IV .Q1H1M ONE Stop: 03/14/21 13:46 Last Infusion: 03/14/21 16:09 Dose: 0 mls/hr Documented by: [id number] Admin: 03/14/21 14:59 Dose: 999 mls/hr Documented by: [id number] Metronidazole (Metronidazole 500 Mg Tab) 500 mg PO NOW ONE Stop: 03/14/21 18:16 Last Admin: 03/14/21 18:42 Dose: 500 mg Documented by: [id number] Morphine Sulfate (Morphine Sulfate 4 Mg/Ml 1 Ml Carp\Vial) 4 mg IV NOW STA Stop: 03/14/21 15:17 Last Admin: 03/14/21 15:45 Dose: 4 mg Documented by: [id number] Morphine Sulfate (Morphine Sulfate 2 Mg/Ml Carp) Confirm Administered Dose 2 mg .ROUTE .STK-MED ONE Stop: 03/14/21 18:40 Last Admin: 03/14/21 18:41 Dose: 2 mg Documented by: [id number] Ondansetron HCl (Ondansetron Inj 2 Mg/Ml 2 Ml Vial) 4 mg IV NOW STA Stop: 03/14/21 15:17 Last Admin: 03/14/21 15:45 Dose: 4 mg Documented by: [id number] Imaging Data Radiologist's Impression: Abdomen/Pelvis CT 03/14/21 12:46 CT SCAN OF THE ABDOMEN AND PELVIS WITH IV CONTRAST CLINICAL HISTORY: Generous abdominal pain, greatest in the left lower quadrant. COMPARISON STUDY: Abdominal CT dated 11/22/2020. TECHNIQUE: Following the IV administration of 95 cc of Optiray 320, CT scan of the abdomen and pelvis is performed from the lung bases to the proximal femora. Images are reviewed in the axial, sagittal, and coronal planes. IV contrast was administered without complication. A dose lowering technique was utilized adhering to the principles of ALARA. CT DOSE: 323.30 mGy.cm FINDINGS: Lung bases: The heart is normal in size and without pericardial effusion. The lung bases are clear. Liver: The contrast-enhanced liver is top normal in size and normal in contour. The liver demonstrates diffusely diminished attenuation consistent with hepatic steatosis. Fatty infiltration is seen adjacent to falciform ligament. There is no intrahepatic biliary ductal dilatation. The hepatic veins and portal veins are patent. Gallbladder: The gallbladder is markedly distended. A common bile duct stent is new from previous. This extends from the hepatic hilum of the duodenum. Spleen: The spleen is enlarged measuring 15.5 cm in length. Pancreas: The pancreas is mildly edematous. Numerous parenchyma calcifications indicate chronic pancreatitis. Peripancreatic inflammation and fluid is consistent with acute pancreatitis. The gland appears to enhance throughout. The pancreatic duct is mildly dilated, measuring up to 5 mm. A 13 mm cystic lesion versus pseudocyst is again seen in the region of the pancreatic neck on image #166. This may communicate with the pancreatic duct. There is a small peripancreatic fluid collection inferior to the pancreatic tail seen on image #163 measuring 2.5 x 2.4 x 1.5 cm. The appearance is typical for a small pseudocyst. No additional organized peripancreatic fluid collection is identified. There is significant narrowing of the superior mesenteric vein posterior to the pancreatic head on image #168. No intraluminal thrombus is identified an the vessel remains patent. There is marked attenuation of the splenic vein as seen on image #162 Adrenal glands: Unremarkable. Kidneys: The contrast enhanced kidneys are normal in size and without hydronephrosis. The kidneys enhance symmetrically. Abdominal vasculature: The abdominal aorta is normal in course and caliber. Bowel: There is no bowel obstruction. Moderate fecal retention is seen throughout the colon. The appendix is not identified and reported surgically absent. Peritoneum: There is trace perisplenic ascites as well as free fluid in the pelvis. No intraperitoneal free air is identified. There is a fat-containing umbilical hernia. Lymphadenopathy: Numerous mildly enlarged peripancreatic and retroperitoneal lymph nodes are likely reactive. Pelvic viscera: The bladder is decompressed and not well evaluated. Uterus is no rmal as visualized. No adnexal lesion is seen. A small volume of free fluid is seen in the cul-de-sac. Skeletal structures: No lytic or blastic lesions are seen. IMPRESSION: 1. Findings are consistent with acute on chronic pancreatitis. 2. The gland appears to enhance throughout. 3. A common bile duct stent is new from previous. There is no intrahepatic biliary ductal dilatation. 4. A 13 mm cystic lesion versus pseudocyst is again seen in the region of the pancreatic neck. This may communicate with the pancreatic duct. 5. A 2.5 x 2.4 x 1.5 cm organized fluid collection is seen below the pancreatic tail, likely representing a pseudocyst. The sterility of this collection cannot be evaluated by CT. 6. There is significant attenuation of the superior mesenteric vein below the portosplenic confluence and the splenic vein. These vessels remain patent. 7. Splenomegaly. 8. There is marked distention of the gallbladder without clear CT evidence of acute cholecystitis. 9. Hepatic steatosis. 10. Small volume abdominopelvic ascites. ACT 112: Negative or not required by law. Electronically signed by: Felice Amato M.D. 03/14/2021 2:06 PM Chest X-Ray 03/14/21 15:26 SINGLE VIEW CHEST CLINICAL HISTORY: Cough. Covid FINDINGS: An AP, portable, upright chest radiograph is compared to study dated 03/12/2020. The cardiomediastinal silhouette is unremarkable. There is mild elevation of the left hemidiaphragm with minimal left basilar atelectasis. The lungs and pleural spaces are otherwise clear. No pneumothorax is seen. The bony thorax is grossly intact. IMPRESSION: No acute cardiopulmonary abnormality. ACT 112: Negative or not required by law. Electronically signed by: Felice Amato M.D. 03/14/2021 3:53 PM Discharge Plan Visit Data Chief Complaint: Abdominal Pain Stated Complaint: FEVER,HEADACHE,MUSCLE PAIN,ABD PAIN ED Provider: Edgard Frank ED Midlevel Provider: Neida Valdez Discharge Problem: Acute on chronic pancreatitis, COVID-19 virus infection Patient Disposition: Admitted As Inpatient Condition: Good Discharge Instructions Interventions: ED Discharge Assessment Last Done: 03/14/21 19:34
[2021-03-14 13:01] LABS: Appearance Urine Clear (Clear); Bacteria Urine Automated 1+ (Negative); Blood Urine 2+ (Negative); Color Urine Dark Yellow; Epithelial Cell Urine Auto >30 /lpf (0-5); Glucose Urine UA Negative (Negative); Ketones Urine Trace (Negative); Leukocyte Esterase Urine Trace (Negative); Nitrite Urine Negative (Negative); Protein Urine Trace (Negative); RBC Urine Automated 0-4 /hpf (0-4); Specific Gravity Urine 1.024 (1.000-1.030); Urobilinogen Urine Negative (Negative); pH Urine 6.5 (4.5-7.5)
[2021-03-14 13:10] LABS: Albumin Level 3.1 gm/dl (3.4-5.0); BUN Creatinine Ratio 9.6 (10-20); Calcium 9.3 mg/dl (8.5-10.1); Creatinine Clr Calc Pharmacy 97.3 ml/min; Est GFR (African American) 117.6 ml/min; Est GFR (Non-African American) 101.4 ml/min; Potassium 3.4 mmol/L (3.5-5.1)
[2021-03-14 13:12] LABS: Bilirubin Urine 1+ (Negative)
[2021-03-14 13:17] LABS: Albumin Globulin Ratio 0.7 (0.9-2); Globulin 4.4 gm/dl (2.5-4.0); Total Protein 7.5 gm/dl (6.4-8.2)
[2021-03-14 13:25] LABS: Bilirubin,Total 0.6 mg/dl (0.2-1)
--- NOTE | 2021-03-14 14:07 | CT Scan Report ---
CT SCAN OF THE ABDOMEN AND PELVIS WITH IV CONTRAST CLINICAL HISTORY: Generous abdominal pain, greatest in the left lower quadrant. COMPARISON STUDY: Abdominal CT dated 11/22/2020. TECHNIQUE: Following the IV administration of 95 cc of Optiray 320, CT scan of the abdomen and pelvi s is performed from the lung bases to the proximal femora. Images are reviewed in the axial, sagittal , and coronal planes. IV contrast was administered without complication. A dose lowering technique wa s utilized adhering to the principles of ALARA. CT DOSE: 323.30 mGy.cm FINDINGS: Lung bases: The heart is normal in size and without pericardial effusion. The lung bases are clear. Liver: The contrast-enhanced liver is top normal in size and normal in contour. The liver demonstrate s diffusely diminished attenuation consistent with hepatic steatosis. Fatty infiltration is seen gissell cent to falciform ligament. There is no intrahepatic biliary ductal dilatation. The hepatic veins and portal veins are patent. Gallbladder: The gallbladder is markedly distended. A common bile duct stent is new from previous. Th is extends from the hepatic hilum of the duodenum. Spleen: The spleen is enlarged measuring 15.5 cm in length. Pancreas: The pancreas is mildly edematous. Numerous parenchyma calcifications indicate chronic pancr eatitis. Peripancreatic inflammation and fluid is consistent with acute pancreatitis. The gland appea rs to enhance throughout. The pancreatic duct is mildly dilated, measuring up to 5 mm. A 13 mm cysti c lesion versus pseudocyst is again seen in the region of the pancreatic neck on image #166. This may communicate with the pancreatic duct. There is a small peripancreatic fluid collection inferior to t he pancreatic tail seen on image #163 measuring 2.5 x 2.4 x 1.5 cm. The appearance is typical for a s mall pseudocyst. No additional organized peripancreatic fluid collection is identified. There is sign ificant narrowing of the superior mesenteric vein posterior to the pancreatic head on image #168. No intraluminal thrombus is identified an the vessel remains patent. There is marked attenuation of the splenic vein as seen on image #162 Adrenal glands: Unremarkable. Kidneys: The contrast enhanced kidneys are normal in size and without hydronephrosis. The kidneys enh ance symmetrically. Abdominal vasculature: The abdominal aorta is normal in course and caliber. Bowel: There is no bowel obstruction. Moderate fecal retention is seen throughout the colon. The appe ndix is not identified and reported surgically absent. Peritoneum: There is trace perisplenic ascites as well as free fluid in the pelvis. No intraperitonea l free air is identified. There is a fat-containing umbilical hernia. Lymphadenopathy: Numerous mildly enlarged peripancreatic and retroperitoneal lymph nodes are likely r eactive. Pelvic viscera: The bladder is decompressed and not well evaluated. Uterus is normal as visualized. N o adnexal lesion is seen. A small volume of free fluid is seen in the cul-de-sac. Skeletal structures: No lytic or blastic lesions are seen. IMPRESSION: 1. Findings are consistent with acute on chronic pancreatitis. 2. The gland appears to enhance throughout. 3. A common bile duct stent is new from previous. There is no intrahepatic biliary ductal dilatation. 4. A 13 mm cystic lesion versus pseudocyst is again seen in the region of the pancreatic neck. This m ay communicate with the pancreatic duct. 5. A 2.5 x 2.4 x 1.5 cm organized fluid collection is seen below the pancreatic tail, likely represen ting a pseudocyst. The sterility of this collection cannot be evaluated by CT. 6. There is significant attenuation of the superior mesenteric vein below the portosplenic confluence and the splenic vein. These vessels remain patent. 7. Splenomegaly. 8. There is marked distention of the gallbladder without clear CT evidence of acute cholecystitis. 9. Hepatic steatosis. 10. Small volume abdominopelvic ascites. ACT 112: Negative or not required by law. Electronically signed by: Felice Amato M.D. 03/14/2021 2:06 PM
[2021-03-14] MEDS ORDERED: ONDANSETRON INJ 2 MG/ML 2 ML VIAL IV STA (15:16)
[2021-03-14] MEDS ORDERED: MoRPHine SULFATE 4 MG/ML 1 ML CARP\\VIAL IV STA (15:16)
--- NOTE | 2021-03-14 15:54 | XRay Report ---
SINGLE VIEW CHEST CLINICAL HISTORY: Cough. Covid FINDINGS: An AP, portable, upright chest radiograph is compared to study dated 03/12/2020. The cardiome diastinal silhouette is unremarkable. There is mild elevation of the left hemidiaphragm with minimal left basilar atelectasis. The lungs and pleural spaces are otherwise clear. No pneumothorax is seen. The bony thorax is grossly intact. IMPRESSION: No acute cardiopulmonary abnormality. ACT 112: Negative or not required by law. Electronically signed by: Felice Amato M.D. 03/14/2021 3:53 PM
--- NOTE | 2021-03-14 16:07 | History & Physical Report ---
Date of Service March 14, 2021 Assessment & Plan (1) Acute on chronic pancreatitis: Plan: Patient is 35-year-old female with PMH history alcoholism, alcohol withdrawal seizures, history substance abuse, pancreatitis, pancreatic stricture and ductal leak and PD stent in 08/2019, PD stent removed 03/16/2020, suspected cholangitis and had ERCP with CBD stent placement in 11/2020, chronic back pain, depression, history of suicide attempt presented to ERwith c/o abdominal discomfort x couple of days. In ER pt afebrile, initial P: 115, BP: 94/59, 96% on RA No leukocytosis, Alk phos: 236, AST: 16, ALT: 34, T Bili: 0.6, Lipase: 153 CT ABD/PELVIS: 1. Findings are consistent with acute on chronic pancreatitis. 2. The gland appears to enhance throughout. 3. A common bile duct stent is new from previous. There is no intrahepatic biliary ductal dilatation. 4. A 13 mm cystic lesion versus pseudocyst is again seen in the region of the pancreatic neck. This may communicate with the pancreatic duct. 5. A 2.5 x 2.4 x 1.5 cm organized fluid collection is seen below the pancreatic tail, likely representing a pseudocyst. The sterility of this collection cannot be evaluated by CT. 6. There is significant attenuation of the superior mesenteric vein below the portospleni c confluence and the splenic vein. These vessels remain patent. 7. Splenomegaly. 8. There is marked distention of the gallbladder without clear CT evidence of acute cholecystitis. 9. Hepatic steatosis. 10. Small volume abdominopelvic ascites. In ER given NSS, morphine NPO NSS Cipro, Flagyl Pepcid BID antiemetics, pain control as needed GI consult CBC, CMP, lipase in am Positive COVID-19: History COVID-19 vaccine in summer 2020, no booster. +COVID-19 PCR. Negative RSV, influenza Patient with h/o cough, nasal congestion x 1-2 weeks. SAAB, myalgias, exertional SOB x 4-5 days No hypoxia at this time, will hold on steroids CXR without infiltrate No leukocytosis, Procalcitonin: 10, CRP: 37 Will start doxycycline as well for possible bacterial component Hypokalemia: Replace and monitor History of alcoholism: History alcohol withdrawal seizure in past Last drink reported 1 month ago Recommend alcohol cessation Thiamine, folic acid, multivitamin History of substance abuse: Denies any recent or current drug use Depression: History of suicide attempt in the past Currently reports mood stable. Denies suicidal ideations Continue bupropion, hydroxyzine, venlafaxine Tobacco use: Smoking cessation encouraged DVT Prophylaxis SCDs Full Code as per discussion with pt Follows with Dr Massimo Monroe for routine care Pt was seen and care coordinated with Dr Dickerson. See addendum History of Present Illness Chief Complaint: Abdominal pain Primary Care Provider: Massimo Monroe DO Patient is 35-year-old female with PMH history alcoholism, alcohol withdrawal seizures, history substance abuse, pancreatitis, pancreatic stricture and ductal leak and PD stent in 08/2019, PD stent removed 03/16/2020, CBD stent placed 11/2020, chronic back pain, depression, history of suicide attempt presented to ERwith c/o abdominal discomfort x couple of days. She reports abdominal discomfort is all over abdomen, worse upper abdomen and described as burning and stabbing pain that is aggravated with movement. Reports nausea without vomiting. Last BM yesterday and was formed. She states 1-2 weeks ago started nasal congestion and cough that is now productive green sputum. C/O chills, tactile fever, SOB with walking that started 4-5 days ago. C/O Myalgias 3-4 days. Lightheaded. Denies syncope. Generalized SAAB x 4-5 days. Denies photophobia, vision changes. Denies loss taste or smell. Reports Vaccinated COVID-19 in summer 2020. No booster. Last drink of alcohol 1 month ago. Denies recent or current drug use. Denies melena, hematochezia. History of hospitalization 11/22/2020-11/28/2020 for abdominal pain, acute on chronic pancreatitis, suspected cholangitis was treated with antibiotics and had ERCP with CBD stent placement. Denies diaphoresis, syncope, vision changes, neck pain, CP, orthopnea, palpitations, hemoptysis, sore throat, choking, otalgia, paresthesias, weakness, extremity weakness, extremity edema, rashes, urinary symptoms. States travelled recently over the holidays. Allergies Allergy/AdvReac Type Severity Reaction Status Date / Time Penicillins Allergy Intermediate HIVES Verified 03/14/21 16:07 Home Medications Medication Instructions Recorded Confirmed Type hydroxyzine pamoate 50 mg capsule 50 mg PO TID PRN #21 cap 03/21/20 03/14/21 Rx (Vistaril) venlafaxine 150 mg 300 mg PO QAM #7 cap 03/21/20 03/14/21 Rx capsule,extended release 24 hr acetaminophen 500 mg tablet 1,000 mg PO Q6H PRN 11/22/20 03/14/21 History (Tylenol Extra Strength) bupropion HCl 300 mg 24 hr tablet, 300 mg PO DAILY 11/22/20 03/14/21 History extended release multivitamin 1 tab PO QAM 11/22/20 03/14/21 History Past Med/Surg History Medical History Acute on chronic pancreatitis Secondary to alcoholism Chronic back pain Depression Headache History of alcoholism History of seizures Hx of alcohol withdrawal seizures- ?? most recent History of substance abuse Prolonged Q-T interval on ECG Hx, not noted on most recent ECG 11/22/20* Surgical History S/P appendectomy S/P ERCP ERCP (11/24/20): Grade view 1, MAC#3, ETT 7 at [facility] Family History Other Diabetes Hypertension Social History Smoking Status: Current every day smoker Tobacco Type: Cigarettes Second Hand Exposure: No; Hx Alcohol Use: Yes Alcohol type: hard liquor Preferred Language: Lao Communication Ability: Effective Visual Impairment: No Limitations Hearing Ability: Normal Space Physicist Required: No Beliefs That Will Affect Care: None marital status: Single Current Living Situation: Alone Current Living Situation Comment: Friend Feels Safe at Home: Yes Assistive Devices: None Review of Systems Review of Systems: All systems reviewed & are unremarkable except as noted in HPI & below Physical Exam Physical Exam: General: no acute distress, WDWN Head: normocephalic, atraumatic Eyes: PERRL, EOM's intact, conjunctiva non-injected, anicteric ENT: normal inspection external ears, nose, mucous membranes moist Neck: supple, trachea midline Lungs: clear, no respiratory distress, no wheezing/rhonchi/rales CV: RRR, no murmur, no pretibial edema Abd: normal BS, soft, +diffuse tenderness to palpation, worse epigastric, no guarding Ext: no cyanosis, no calf tenderness Neuro: A&O x 3, no focal deficits noted, normal affect Skin: warm, dry Results & Data Results & Data ([facility]) Vital Signs (Past 12 Hours) Vital Signs Temp Pulse Pulse Resp BP BP Pulse Ox 03/14/21 14:57 93 H 16 115/77 100 03/14/21 12:12 36.6 C 115 H 16 94/59 L 96 Laboratory Results Short CBC 03/14/21 Range/Units 12:28 WBC 6.71 (4.8-10.8) K/uL Hgb 12.8 (12.0-16.0) g/dL Hct 37.1 (37-47) % Plt Count 134 (130-400) K/uL BMP 03/14/21 12:28 Sodium 132 L Potassium 3.4 L Chloride 99 Carbon Dioxide 28 BUN 7 Creatinine 0.77 Glucose 100 H Calcium 9.3 Liver Function 03/14/21 Range/Units 12:28 Total Bilirubin 0.6 (0.2-1) mg/dl AST 16 (15-37) U/L ALT 34 (12-78) Alkaline Phosphatase 236 H (45-117) U/L Albumin 3.1 L (3.4-5.0) gm/dl Urine 03/14/21 Range/Units 12:30 Urine Color Dark Yellow Urine Appearance Clear (Clear) Urine pH 6.5 (4.5-7.5) Ur Specific [place]nathy 1.024 (1.000-1.030) Urine Protein Trace H (Negative) Urine Glucose (UA) Negative (Negative) Diagnostic Findings Abdomen/Pelvis CT 03/14/21 12:46 CT SCAN OF THE ABDOMEN AND PELVIS WITH IV CONTRAST CLINICAL HISTORY: Generous abdominal pain, greatest in the left lower quadran t. COMPARISON STUDY: Abdominal CT dated 11/22/2020. TECHNIQUE: Following the IV administration of 95 cc of Optiray 320, CT scan of the abdomen and pelvis is performed from the lung bases to the proximal femora. Images are reviewed in the axial, sagittal, and coronal planes. IV contrast was administered without complication. A dose lowering technique was utilized adhering to the principles of ALARA. CT DOSE: 323.30 mGy.cm FINDINGS: Lung bases: The heart is normal in size and without pericardial effusion. The lung bases are clear. Liver: The contrast-enhanced liver is top normal in size and normal in contour. The liver demonstrates diffusely diminished attenuation consistent with hepatic steatosis. Fatty infiltration is seen adjacent to falciform ligament. There is no intrahepatic biliary ductal dilatation. The hepatic veins and portal veins are patent. Gallbladder: The gallbladder is markedly distended. A common bile duct stent is new from previous. This extends from the hepatic hilum of the duodenum. Spleen: The spleen is enlarged measuring 15.5 cm in length. Pancreas: The pancreas is mildly edematous. Numerous parenchyma calcifications indicate chronic pancreatitis. Peripancreatic inflammation and fluid is consistent with acute pancreatitis. The gland appears to enhance throughout. The pancreatic duct is mildly dilated, measuring up to 5 mm. A 13 mm cystic lesion versus pseudocyst is again seen in the region of the pancreatic neck on image #166. This may communicate with the pancreatic duct. There is a small peripancreatic fluid collection inferior to the pancreatic tail seen on image #163 measuring 2.5 x 2.4 x 1.5 cm. The appearance is typical for a small pseudocyst. No additional organized peripancreatic fluid collection is identified. There is significant narrowing of the superior mesenteric vein posterior to the pancreatic head on image #168. No intraluminal thrombus is identified an the vessel remains patent. There is marked attenuation of the splenic vein as seen on image #162 Adrenal glands: Unremarkable. Kidneys: The contrast enhanced kidneys are normal in size and without hydronephrosis. The kidneys enhance symmetrically. Abdominal vasculature: The abdominal aorta is normal in course and caliber. Bowel: There is no bowel obstruction. Moderate fecal retention is seen throughout the colon. The appendix is not identified and reported surgically absent. Peritoneum: There is trace perisplenic ascites as well as free fluid in the pelvis. No intraperitoneal free air is identified. There is a fat-containing umbilical hernia. Lymphadenopathy: Numerous mildly enlarged peripancreatic and retroperitoneal lymph nodes are likely reactive. Pelvic viscera: The bladder is decompressed and not well evaluated. Uterus is no rmal as visualized. No adnexal lesion is seen. A small volume of free fluid is seen in the cul-de-sac. Skeletal structures: No lytic or blastic lesions are seen. IMPRESSION: 1. Findings are consistent with acute on chronic pancreatitis. 2. The gland appears to enhance throughout. 3. A common bile duct stent is new from previous. There is no intrahepatic biliary ductal dilatation. 4. A 13 mm cystic lesion versus pseudocyst is again seen in the region of the pancreatic neck. This may communicate with the pancreatic duct. 5. A 2.5 x 2.4 x 1.5 cm organized fluid collection is seen below the pancreatic tail, likely representing a pseudocyst. The sterility of this collection cannot be evaluated by CT. 6. There is significant attenuation of the superior mesenteric vein below the portosplenic confluence and the splenic vein. These vessels remain patent. 7. Splenomegaly. 8. There is marked distention of the gallbladder without clear CT evidence of acute cholecystitis. 9. Hepatic steatosis. 10. Small volume abdominopelvic ascites. ACT 112: Negative or not required by law. Electronically signed by: Felice Amato M.D. 03/14/2021 2:06 PM Chest X-Ray 03/14/21 15:26 SINGLE VIEW CHEST CLINICAL HISTORY: Cough. Covid FINDINGS: An AP, portable, upright chest radiograph is compared to study dated 03/12/2020. The cardiomediastinal silhouette is unremarkable. There is mild elevation of the left hemidiaphragm with minimal left basilar atelectasis. The lungs and pleural spaces are otherwise clear. No pneumothorax is seen. The bony thorax is grossly intact. IMPRESSION: No acute cardiopulmonary abnormality. ACT 112: Negative or not required by law. Electronically signed by: Felice Amato M.D. 03/14/2021 3:53 PM Supervising Physician Co-Signing Physician Notes Patient is a 35-year-old female with history of alcoholism, recurrent pancreatitis, pancreatic stricture and ductal leak, alcohol withdrawal seizures, substance abuse disorder and other medical problems presents with history of worsening abdominal pain since 2 days duration. She also reports associated nausea but denies any vomiting. She states having cough with greenish productive sputum associated with chills, fever, dyspnea on exertion since 4 to 5 days duration. She states that her last alcohol drink was more than 1 month ago. She denies any current illicit drug use. Please review HPI for complete details of presentation. Blood work suggestive of hyponatremia 132, hypokalemia 3.4, elevated CRP 37.5, elevated procalcitonin 10.45 and normal lipase levels. She was tested positive for Covid while in ED but saturates well on room air. Urinalysis suggestive of possible UTI. Chest x-ray showed no acute abnormality. CT abdomen suggestive of acute on chronic pancreatitis, 13 mm cystic lesion versus pseudocyst on the pancreatic neck and also noted fluid collection below the pancreatic tail. Splenomegaly, hepatic steatosis noted as well. On exam patient is well-built and nourished, no apparent distress, normocephalic atraumatic, EOMI, normal breath sounds, clear to auscultation, S1-S2, no murmur, no pedal edema, abdomen soft, diffuse tenderness, no guarding or rigidity, normal bowel sounds, alert, awake, oriented, grossly no focal deficits. Patient is admitted for management of acute on chronic pancreatitis, COVID-19 pneumonia, possible UTI, electrolyte abnormalities. Agree with aggressive IV fluids, broad-spectrum antibiotics to cover GI, pulmonary source and UTI. Obtain cultures. Will consult GI. Replace electrolytes as needed. Currently no indication for Covid treatment given no hypoxia. Start on thiamine, folic acid. Minimize narcotic use as able. I personally reviewed the record. Patient is interviewed and examined at bedside. Patient's care is coordinated with Kim Kirk PA-C. Please refer to the documentation above for details of patient's presentation and for discussion of other issues.
[2021-03-14] MEDS ORDERED: metroNIDAZOLE 500 MG TAB PO ONE (18:15)
[2021-03-14] MEDS ORDERED: CIPROFLOXACIN / D5W 400 MG/200 ML BAG IV ONE (18:15)
[2021-03-14 18:19] LABS: Influenza A virus by PCR Negative (Neg); Influenza B virus by PCR Negative (Neg); RSV by PCR Negative (Neg)
[2021-03-14 18:25] LABS: SARS CoV2 RNA(COVID-19) InHosp POSITIVE (Negative)
[2021-03-14] MEDS ORDERED: ONDANSETRON INJ 2 MG/ML 2 ML VIAL IV PRN (18:36)
[2021-03-14] MEDS ORDERED: POLYETHYLENE (MIRALAX) 17 GM PACK PO PRN (18:36)
[2021-03-14] MEDS ORDERED: MoRPHine SULFATE 2 MG/ML CARP IV PRN (18:36)
[2021-03-14] MEDS ORDERED: MoRPHine SULFATE 2 MG/ML CARP ONE (18:39)
[2021-03-14] MEDS ORDERED: HYDROmorphone INJ 0.5 MG/0.5 ML SYR IV STA (19:03)
[2021-03-14 19:14] LABS: C Reactive Protein 37.5 mg/dl (0-0.29)
[2021-03-14] MEDS ORDERED: HYDROmorphone INJ 0.5 MG/0.5 ML SYR ONE (19:18)
[2021-03-14] MEDS: NICOTINE 14 MG/24 HR PATCH TD SCH (20:54)
[2021-03-14] MEDS: NSS + 20MEQ KCL 20 MEQ/1,000 ML BAG IV SCH (20:55)
[2021-03-14] MEDS: KETOROLAC TROMETHAMINE 15 MG/ML VIAL IV PRN (21:15)
[2021-03-14] MEDS: DOXYCYCLINE HYCLATE 100 MG CAP PO SCH (21:52)
[2021-03-14] MEDS: FAMOTIDINE 20 MG in SYRINGE 3 ML IV SCH (21:52)
[2021-03-15] MEDS: HYDROmorphone INJ 0.5 MG/0.5 ML SYR IV PRN ×7 (00:11→21:38)
[2021-03-15] MEDS: NSS + 20MEQ KCL 20 MEQ/1,000 ML BAG IV SCH (02:05)
[2021-03-15] MEDS: metroNIDAZOLE 500 MG TAB PO SCH ×3 (02:05→17:38)
[2021-03-15] MEDS ORDERED: SODIUM CHLORIDE 0.9% 1000ML 1,000 ML IV SCH (04:36)
[2021-03-15] MEDS: KETOROLAC TROMETHAMINE 15 MG/ML VIAL IV PRN ×3 (05:20→19:18)
[2021-03-15 06:01] LABS: Hemoglobin 9.9 g/dL (12.0-16.0); Mean Corpuscular Hemoglobin 32.1 pg (25-34); Mean Corpuscular Volume 97.4 fL (80-100); Mean Platelet Volume 10.7 fL (7.4-10.4); Platelet Count 142 K/uL (130-400); RDW Coefficient of Variation 13.8 % (11.5-14.5); RDW Standard Deviation 48.6 fL (36.4-46.3); Red Blood Count 3.08 M/uL (4.2-5.4); White Blood Count 3.62 K/uL (4.8-10.8)
[2021-03-15] MEDS: CIPROFLOXACIN / D5W 400 MG/200 ML BAG IV SCH ×2 (06:16→17:39)
[2021-03-15 06:36] LABS: Albumin Globulin Ratio 0.7 (0.9-2); Albumin Level 2.4 gm/dl (3.4-5.0); BUN Creatinine Ratio 12.2 (10-20); Bilirubin,Total 0.4 mg/dl (0.2-1); Calcium 8.6 mg/dl (8.5-10.1); Creatinine Clr Calc Pharmacy 138.7 ml/min; Est GFR (African American) 143.7 ml/min; Globulin 3.5 gm/dl (2.5-4.0); Potassium 4.1 mmol/L (3.5-5.1); Total Protein 5.9 gm/dl (6.4-8.2)
[2021-03-15] MEDS: THIAMINE HCL 100 MG TAB PO SCH (08:42)
[2021-03-15] MEDS: buPROPion XL 300 MG TABCR PO SCH (08:42)
[2021-03-15] MEDS: FOLIC ACID 1 MG TAB PO SCH (08:43)
[2021-03-15] MEDS: VENLAFAXINE HCL XR 150 MG CAPXR PO SCH (08:43)
[2021-03-15] MEDS: NICOTINE 14 MG/24 HR PATCH TD SCH (08:44)
[2021-03-15] MEDS: DOXYCYCLINE HYCLATE 100 MG CAP PO SCH ×2 (08:44→20:32)
[2021-03-15] MEDS: LACTATED RINGER'S 1,000 ML IV SCH ×3 (09:15→20:30)
[2021-03-15] MEDS: FAMOTIDINE 20 MG in SYRINGE 3 ML IV SCH (09:15)
--- NOTE | 2021-03-15 11:40 | Gastrointestinal Consultation ---
Date of Consultation March 15, 2021 Assessment & Plan (1) Acute alcoholic pancreatitis: Hx of recurrent alcohol related pancreatitis, last time had disrupted PD and treated by ERCP with PD stenting, this was later removed. Continues to drink 1 month ago, but less than before. No presented with abdominal pain, lipase normal. CT with acute on chronic pancreatitis, 1.5 cm cyst, likely a pseudocyst rather than an abscess or WON. - Continue abx - IVF - ERCP scheduled for 05/04 and given to patient today - Call with questions History of Present Illness Reason for Consultation: Acute on Chronic Pancreatitis Attending Physician: Elijah Encarnacion MD History of Present Illness 35 y/o female who presented to ED w c/o abd pain symptoms associated w n/v. She has hx of ETOH abuse, ETOH withdrawal seizure, pancreatitis w complication of stricture, ductal leak and PD stent placement in 08/2019. She no showed appointm ents for f/u and eventually during one of her inpt admissions, her PD stent was removed on 03/2020. She then presented in 11/2020 with similiar presentation as to today and underwent ERCP with biliary stent placement, pancreatic anatomy not evaluated. She presented with similiar pain, burning and radiation across her abdomen, no severe, she has also had a cough, malaise, and has not tested positive for Covid. ER evaluation has shown similiar findingins on CT scan with PFA/Psuedocyst inferor to tail and body, WBC count is 3, HCT is 30 LFTs are normal except for AP of 177 (indwellig Stent). No fevers, chills, and feels improved since admission. Allergies Allergy/AdvReac Type Severity Reaction Status Date / Time Penicillins Allergy Intermediate HIVES Verified 03/14/21 16:07 Home Medications Medication Instructions Recorded Confirmed Type hydroxyzine pamoate 50 mg capsule 50 mg PO TID PRN #21 cap 03/21/20 03/14/21 Rx (Vistaril) venlafaxine 150 mg 300 mg PO QAM #7 cap 03/21/20 03/14/21 Rx capsule,extended release 24 hr acetaminophen 500 mg tablet 1,000 mg PO Q6H PRN 11/22/20 03/14/21 History (Tylenol Extra Strength) bupropion HCl 300 mg 24 hr tablet, 300 mg PO DAILY 11/22/20 03/14/21 History extended release multivitamin 1 tab PO QAM 11/22/20 03/14/21 History Patient History Medical History Acute on chronic pancreatitis Secondary to alcoholism Chronic back pain Depression Headache History of alcoholism History of seizures Hx of alcohol withdrawal seizures- ?? most recent History of substance abuse Prolonged Q-T interval on ECG Hx, not noted on most recent ECG 11/22/20* Surgical History S/P appendectomy S/P ERCP ERCP (11/24/20): Grade view 1, MAC#3, ETT 7 at [facility] Family History Other Diabetes Hypertension Social History Smoking Status: Current every day smoker Tobacco Type: Cigarettes Second Hand Exposure: No; Hx Alcohol Use: Yes Alcohol type: hard liquor Preferred Language: Chinese Communication Ability: Effective Visual Impairment: No Limitations Hearing Ability: Normal Devops Consultant Required: No Beliefs That Will Affect Care: None marital status: Single Current Living Situation: Alone Current Living Situation Comment: Friend Feels Safe at Home: Yes Assistive Devices: None Physical Exam Constitutional: WD/WN, vitals as above sitting in bed watching TV without distress Cardiovascular: RRR, no murmur, no edema Gastrointestinal (Abdomen): normal bowel sounds, soft, nontender, no hepatosplenomegaly Results & Data ([facility]) Vital Signs (Past 12 Hours) Vital Signs Pulse Pulse Resp BP BP Pulse Ox 03/15/21 10:00 71 18 03/15/21 09:49 76 16 117/68 03/15/21 08:05 78 16 113/72 98 03/15/21 03:31 77 18 96/64 L [address] SCAN OF THE ABDOMEN AND PELVIS WITH IV CONTRAST CLINICAL HISTORY: Generous abdominal pain, greatest in the left lower quadrant. COMPARISON STUDY: Abdominal CT dated 11/22/2020. TECHNIQUE: Following the IV administration of 95 cc of Optiray 320, CT scan of the abdomen and pelvis is performed from the lung bases to the proximal femora. Images are reviewed in the axial, sagittal, and coronal planes. IV contrast was administered without complication. A dose lowering technique was utilized adhering to the principles of ALARA. CT DOSE: 323.30 mGy.cm FINDINGS: Lung bases: The heart is normal in size and without pericardial effusion. The lung bases are clear. Liver: The contrast-enhanced liver is top normal in size and normal in contour. The liver demonstrates diffusely diminished attenuation consistent with hepatic steatosis. Fatty infiltration is seen adjacent to falciform ligament. There is no intrahepatic biliary ductal dilatation. The hepatic veins and portal veins are patent. Gallbladder: The gallbladder is markedly distended. A common bile duct stent is new from previous. This extends from the hepatic hilum of the duodenum. Spleen: The spleen is enlarged measuring 15.5 cm in length. Pancreas: The pancreas is mildly edematous. Numerous parenchyma calcifications indicate chronic pancreatitis. Peripancreatic inflammation and fluid is consistent with acute pancreatitis. The gland appears to enhance throughout. The pancreatic duct is mildly dilated, measuring up to 5 mm. A 13 mm cystic lesion versus pseudocyst is again seen in the region of the pancreatic neck on image #166. This may communicate with the pancreatic duct. There is a small peripancreatic fluid collection inferior to the pancreatic tail seen on image #163 measuring 2.5 x 2.4 x 1.5 cm. The appearance is typical for a small pseudocyst. No additional organized peripancreatic fluid collection is identified. There is significant narrowing of the superior mesenteric vein posterior to the pancreatic head on image #168. No intraluminal thrombus is identified an the vessel remains patent. There is marked attenuation of the splenic vein as seen on image #162 Adrenal glands: Unremarkable. Kidneys: The contrast enhanced kidneys are normal in size and without hydronephrosis. The kidneys enhance symmetrically. Abdominal vasculature: The abdominal aorta is normal in course and caliber. Bowel: There is no bowel obstruction. Moderate fecal retention is seen throughout the colon. The appendix is not identified and reported surgically absent. Peritoneum: There is trace perisplenic ascites as well as free fluid in the pelvis. No intraperitoneal free air is identified. There is a fat-containing umbilical hernia. Lymphadenopathy: Numerous mildly enlarged peripancreatic and retroperitoneal lymph nodes are likely reactive. Pelvic viscera: The bladder is decompressed and not well evaluated. Uterus is normal as visualized. No adnexal lesion is seen. A small volume of free fluid is seen in the cul-de-sac. Skeletal structures: No lytic or blastic lesions are seen. IMPRESSION: 1. Findings are consistent with acute on chronic pancreatitis. 2. The gland appears to enhance throughout. 3. A common bile duct stent is new from previous. There is no intrahepatic biliary ductal dilatation. 4. A 13 mm cystic lesion versus pseudocyst is again seen in the region of the pancreatic neck. This may communicate with the pancreatic duct. 5. A 2.5 x 2.4 x 1.5 cm organized fluid collection is seen below the pancreatic tail, likely representing a pseudocyst. The sterility of this collection cannot be evaluated by CT. 6. There is significant attenuation of the superior mesenteric vein below the portosplenic confluence and the splenic vein. These vessels remain patent. 7. Splenomegaly. 8. There is marked distention of the gallbladder without clear CT evidence of acute cholecystitis. 9. Hepatic steatosis. 10. Small volume abdominopelvic ascites. (1) Acute alcoholic pancreatitis Acute pancreatitis complication: unspecified Qualified Code(s): K85.20 - Alcohol induced acute pancreatitis without necrosis or infection
[2021-03-15] MEDS ORDERED: HYDROmorphone INJ 0.5 MG/0.5 ML SYR IV PRN (15:13)
--- NOTE | 2021-03-15 16:24 | Surgery Consultation ---
Date of Consultation March 15, 2021 Assessment & Plan (1) Acute on chronic pancreatitis: distended gallbladder but no evidence of cholecystitis on imaging or labs consider increasing bowel regimen, large stool burden no plans for surgical intervention or additional imaging at this time, also on isolation for + COVID f/u with GI as planned for ERCP/stent removal as above. no indication for surgical intervention at this time. acute on chronic pancreatitis likely secondary to ETOH can f/u with me after ERCP in Apr...if ERCP reveals any sludge or debris we could consider elective lap alonzo after pancreatitis has resolved. call if any changes in pt's status. History of Present Illness Attending Physician: Elijah Encarnacion MD History of Present Illness 35 y/o female with h/o alcohol related pancreatitis, pseudocyst, ERCP and stenting in November now with 2-3 days generalized abdominal pain, nausea. The pain along both side of her abdomen is different than her "normal" epigastric pain. Allergies Allergy/AdvReac Type Severity Reaction Status Date / Time Penicillins Allergy Intermediate HIVES Verified 03/14/21 16:07 Home Medications Medication Instructions Recorded Confirmed Type hydroxyzine pamoate 50 mg capsule 50 mg PO TID PRN #21 cap 03/21/20 03/14/21 Rx (Vistaril) venlafaxine 150 mg 300 mg PO QAM #7 cap 03/21/20 03/14/21 Rx capsule,extended release 24 hr acetaminophen 500 mg tablet 1,000 mg PO Q6H PRN 11/22/20 03/14/21 History (Tylenol Extra Strength) bupropion HCl 300 mg 24 hr tablet, 300 mg PO DAILY 11/22/20 03/14/21 History extended release multivitamin 1 tab PO QAM 11/22/20 03/14/21 History Patient History Medical History Acute on chronic pancreatitis Secondary to alcoholism Chronic back pain Depression Headache History of alcoholism History of seizures Hx of alcohol withdrawal seizures- ?? most recent History of substance abuse Prolonged Q-T interval on ECG Hx, not noted on most recent ECG 11/22/20* Surgical History S/P appendectomy S/P ERCP ERCP (11/24/20): Grade view 1, MAC#3, ETT 7 at [facility] Family History Other Diabetes Hypertension Social History Smoking Status: Current every day smoker Tobacco Type: Cigarettes Second Hand Exposure: No; Hx Alcohol Use: Yes Alcohol type: hard liquor Preferred Language: Greenlandic Communication Ability: Effective Visual Impairment: No Limitations Hearing Ability: Normal Date Pitter Required: No Beliefs That Will Affect Care: None marital status: Single Current Living Situation: Alone Current Living Situation Comment: Friend Feels Safe at Home: Yes Assistive Devices: None Review of Systems Constitutional: no fever and no chills Gastrointestinal: + abdominal pain and + bloating; no nausea, no vomiting, no constipation and no diarrhea/loose stools Physical Exam Constitutional: WD/WN, vitals as above Respiratory: no respiratory distress Cardiovascular: Rate/Rhythm: regular rate Gastrointestinal (Abdomen): Inspection/Auscultation: abdomen not distended Percussion/Palpation: + abdomen tender (mild generalized) and abdomen soft; no guarding Results & Data ([facility]) Vital Signs (Past 12 Hours) Vital Signs Pulse Pulse Resp BP BP Pulse Ox 03/15/21 15:00 74 15 03/15/21 14:30 76 15 03/15/21 14:00 73 15 03/15/21 13:30 77 14 03/15/21 13:00 76 12 03/15/21 12:30 77 15 99 03/15/21 12:27 78 16 108/75 97 03/15/21 12:00 79 16 03/15/21 11:30 76 16 03/15/21 11:00 74 16 97 03/15/21 10:00 71 18 03/15/21 09:49 76 16 117/68 03/15/21 08:05 78 16 113/72 98 PG Care Time/CCT Total # of Minutes Spent Total Time Spent with Patient: Total time spent is greater than 50% in coordination of care (as documented) at patient's floor/unit and/or counseling patient: Coding Level of Care Code 61858 Inpt Consult Level 4 Diagnoses Acute on chronic pancreatitis K85.90; K86.1
[2021-03-15] MEDS ORDERED: MAGNESIUM HYDROXIDE SUSP 30 ML UDC PO PRN (18:45)
--- NOTE | 2021-03-15 18:46 | Hospitalist Progress Note ---
Date of Service March 15, 2021 Assessment & Plan (1) Acute on chronic pancreatitis: Plan: Per admitting service notes with attending: Patient is 35-year-old female with PMH history alcoholism, alcohol withdrawal seizures, history substance abuse, pancreatitis, pancreatic stricture and ductal leak and PD stent in 08/2019, PD stent removed 03/16/2020, suspected cholangitis and had ERCP with CBD stent placement in 11/2020, chronic back pain, depression, history of suicide attempt presented to ERwith c/o abdominal discomfort x couple of days. In ER pt afebrile, initial P: 115, BP: 94/59, 96% on RA No leukocytosis, Alk phos: 236, AST: 16, ALT: 34, T Bili: 0.6, Lipase: 153 CT ABD/PELVIS: 1. Findings are consistent with acute on chronic pancreatitis. 2. The gland appears to enhance throughout. 3. A common bile duct stent is new from previous. There is no intrahepatic biliary ductal dilatation. 4. A 13 mm cystic lesion versus pseudocyst is again seen in the region of the pancreatic neck. This may communicate with the pancreatic duct. 5. A 2.5 x 2.4 x 1.5 cm organized fluid collection is seen below the pancreatic tail, likely representing a pseudocyst. The sterility of this collection cannot be evaluated by CT. 6. There is significant attenuation of the superior mesenteric vein below the portosplenic confluence and the splenic vein. These vessels remain patent. 7. Splenomegaly. 8. There is marked distention of the gallbladder without clear CT evidence of acute cholecystitis. 9. Hepatic steatosis. 10. Small volume abdominopelvic ascites. In ER given NSS, morphine NPO NSS Cipro, Flagyl Pepcid BID antiemetics, pain control as needed GI consult CBC, CMP, lipase in am 03/15/2021 Abdominal pain, tenderness seems to be improving Lipase within normal limits GI consulted -outpatient ERCP scheduled for May 04 Positive marked distention of gallbladder, liver panel no signs of acute cholecystitis-General surgery consulted-plan for possible cholecystectomy if ERCP revealing any gallbladder stones or sludge Continue IV lactated Ringer's Start clear liquid diet As needed Dilaudid Continue Cipro plus Flagyl Monitor closely Positive COVID-19: History COVID-19 vaccine in summer 2020, no booster. +COVID-19 PCR. Negative RSV, influenza Patient with h/o cough, nasal congestion x 1-2 weeks. SAAB, myalgias, exertional SOB x 4-5 days No hypoxia at this time, will hold on steroids CXR without infiltrate No leukocytosis, Procalcitonin: 10, CRP: 37 Will start doxycycline as well for possible bacterial component 03/15/2021 Patient remains asymptomatic from COVID-19 infection standpoint On room air, denies cough or shortness of breath Chest x-ray no signs of pneumonia Continue to monitor closely Hypokalemia: Replace and monitor -Resolved History of alcoholism: History alcohol withdrawal seizure in past Last drink reported 1 month ago Recommend alcohol cessation Thiamine, folic acid, multivitamin -No signs of alcohol withdrawal History of substance abuse: Denies any recent or current drug use Depression: History of suicide attempt in the past Currently reports mood stable. Denies suicidal ideations Continue bupropion, hydroxyzine, venlafaxine Tobacco use: Smoking cessation encouraged DVT Prophylaxis SCDs Full Code as per discussion with pt Follows with Dr Massimo Monroe for routine care plan of care discussed with patient in detail and at length all questions answered She is understanding, agreeable, comfortable with the plan of care Admission and Anticipated Discharge Date Admission Date: March 14, 2021 Subjective Follow-up for acute on chronic pancreatitis, COVID-19 infection, etc. Seen sitting up in bed, not in distress States she still has epigastric pain mostly, no nausea, fevers or chills, shortness of breath Denies cough, sputum production, chest pain No leg pain No other symptoms Requesting for diet Review of Systems Review of Systems: all noted and negative except for above Physical Exam Physical Exam: General- oriented x 3, not in distress, speaks in sentences with no effort or accessory muscle use Head- atraumatic Eyes- PERRL, EOMI, anicteric ENT- oropharynx clear Neck- supple, no JVD, no adenopathy, no thyromegaly; carotids +2/2, no bruits appreciated Lungs- clear to auscultation bilaterally, no rales/wheezes Heart- normal rate, regular rhythm; no murmur, no gallop, no rub appreciated Abdomen- normal bowel sounds, nondistended, soft, positive mild tenderness on lower quadrants, no masses or hepatosplenomegaly Extremities- no pretibial edema, no calf tenderness; peripheral pulses intact Neuro- alert, oriented x 3; CN 2-12 grossly intact; motor 5/5 bilaterally;sensation 100% on all extremities; no other gross focal neurologic deficits Skin- warm & dry Results & Data Results & Data ([facility]) Vital Signs (Past 12 Hours) Vital Signs Pulse Pulse Resp BP BP Pulse Ox 03/15/21 17:42 83 12 119/81 95 03/15/21 15:00 74 15 03/15/21 14:30 76 15 03/15/21 14:00 73 15 03/15/21 13:30 77 14 03/15/21 13:00 76 12 03/15/21 12:30 77 15 99 03/15/21 12:27 78 16 108/75 97 03/15/21 12:00 79 16 03/15/21 11:30 76 16 03/15/21 11:00 74 16 97 03/15/21 10:00 71 18 03/15/21 09:49 76 16 117/68 03/15/21 08:05 78 16 113/72 98 all noted and reviewed including below
[2021-03-15] MEDS: POLYETHYLENE (MIRALAX) 17 GM PACK PO SCH (20:28)
[2021-03-15] MEDS: FAMOTIDINE 20 MG TAB PO SCH (20:32)
[2021-03-16] MEDS: HYDROmorphone INJ 0.5 MG/0.5 ML SYR IV PRN (01:37)
[2021-03-16] MEDS: LACTATED RINGER'S 1,000 ML IV SCH ×5 (01:45→21:38)
[2021-03-16] MEDS: metroNIDAZOLE 500 MG TAB PO SCH ×3 (01:46→17:04)
[2021-03-16] MEDS: KETOROLAC TROMETHAMINE 15 MG/ML VIAL IV PRN ×3 (02:42→16:00)
[2021-03-16] MEDS ORDERED: HYDROmorphone INJ 0.5 MG/0.5 ML SYR IV STA (04:26)
[2021-03-16 05:43] LABS: Hematocrit (blood only) 33.6 % (37-47); Hemoglobin 11.2 g/dL (12.0-16.0); Mean Corpuscular Hemoglobin 32.3 pg (25-34); Mean Corpuscular Hgb Conc 33.3 g/dL (32-36); Mean Corpuscular Volume 96.8 fL (80-100); Mean Platelet Volume 9.8 fL (7.4-10.4); Platelet Count 215 K/uL (130-400); RDW Coefficient of Variation 13.7 % (11.5-14.5); RDW Standard Deviation 47.6 fL (36.4-46.3); Red Blood Count 3.47 M/uL (4.2-5.4); White Blood Count 3.94 K/uL (4.8-10.8)
[2021-03-16] MEDS: HYDROmorphone INJ 1 MG/ML SYRINGE IV PRN ×6 (05:43→23:25)
[2021-03-16] MEDS: CIPROFLOXACIN / D5W 400 MG/200 ML BAG IV SCH ×2 (05:47→19:27)
[2021-03-16 06:14] LABS: Albumin Level 2.7 gm/dl (3.4-5.0); BUN Creatinine Ratio 5.7 (10-20); Bilirubin Direct 0.2 mg/dl (0-0.2); Bilirubin,Total 0.5 mg/dl (0.2-1); Calcium 9.2 mg/dl (8.5-10.1); Creatinine Clr Calc Pharmacy 122.8 ml/min; Est GFR (African American) 138.1 ml/min; Est GFR (Non-African American) 119.1 ml/min; Magnesium 1.9 mg/dl (1.8-2.4); Potassium 3.4 mmol/L (3.5-5.1); Total Protein 6.4 gm/dl (6.4-8.2)
[2021-03-16 06:24] LABS: Lymphocytes % (auto) 20.3 %; Monocytes # (auto) 0.83 K/uL (0.11-0.59); Monocytes % (auto) 21.1 %; Neutrophils # (auto) 2.31 K/uL (1.4-6.5); Neutrophils % (auto) 58.6 %; RBC Morphology Unremarkable
[2021-03-16] MEDS ORDERED: POTASSIUM CHLORIDE CRTAB 20 MEQ TABCR PO STA (07:24)
[2021-03-16] MEDS ORDERED: LACTULOSE SYRUP 10 GM/15 ML BTL 960 ML PO STA (08:00)
[2021-03-16] MEDS ORDERED: LACTULOSE SYRUP 10 GM/15 ML BTL 960 ML PO PRN (08:02)
[2021-03-16] MEDS: DOXYCYCLINE HYCLATE 100 MG CAP PO SCH ×2 (08:27→20:22)
[2021-03-16] MEDS: FAMOTIDINE 20 MG TAB PO SCH ×2 (08:27→20:22)
[2021-03-16] MEDS: THIAMINE HCL 100 MG TAB PO SCH (08:27)
[2021-03-16] MEDS: FOLIC ACID 1 MG TAB PO SCH (08:27)
[2021-03-16] MEDS: buPROPion XL 300 MG TABCR PO SCH (08:27)
[2021-03-16] MEDS: VENLAFAXINE HCL XR 150 MG CAPXR PO SCH (08:27)
[2021-03-16] MEDS: NICOTINE 14 MG/24 HR PATCH TD SCH (08:28)
[2021-03-16] MEDS: DOCUSATE SODIUM/SENNA 50/8.6MG TAB PO SCH (08:33)
[2021-03-16] MEDS: POLYETHYLENE (MIRALAX) 17 GM PACK PO SCH (08:33)
--- NOTE | 2021-03-16 09:01 | CT Scan Report ---
ABDOMEN AND PELVIS CT WITHOUT CONTRAST CT DOSE: 398.18 mGy.cm HISTORY: Follow up study in a patient with acute pancreatitis. COVID Positive. ff up for pancreatiti s TECHNIQUE: Multiaxial CT images of the abdomen and pelvis were performed without contrast. A dose lo wering technique was utilized adhering to the principles of ALARA. COMPARISON STUDY: CT abdomen pelvis 03/14/2021 FINDINGS: Limited exam without the use of IV contrast. Trace pleural effusions are new from prior. Mi ld bibasilar linear consolidation, left greater than right. No pneumatosis or pneumoperitoneum. The i brian inferior cardiac chambers are unremarkable with trace pericardial effusion. The spleen is enlar ged measuring up to 16 cm in length. The visualized adrenal gland are unremarkable. Distended gallbla dder without cholelithiasis. Hepatic steatosis. Focal hypodensity of the left hepatic lobe adjacent t o the falciform ligament redemonstrated suggestive of focal fatty infiltration. Pancreatic calcifications compatible with chronic pancreatitis. Interstitial and peripancreatic edema has progressively worsened from prior. 1.3 cm cystic focus of the pancreatic neck is unchanged. The previously described 2.4 x 1.5 cm fluid collection below the pancreatic tail is not definitively seen . Patency of the vasculature cannot be evaluated without the use of IV contrast. Inflammation within lesser sac is again noted extending along the left pericolic gutter with small volume of abdominopelv ic ascites. Unremarkable kidneys without hydronephrosis. Mild bladder wall thickening. Unremarkable uterus. Aorta and IVC are unremarkable. Common bile duct stent appears to be in stable positioning. Mild wall thic kening of the duodenum. Moderate fecal retention. No bowel obstruction. Moderate gaseous distention o f the colon. The terminal ileum is unremarkable. The appendix is reportedly surgically absent. Unrema rkable soft tissues. No acute fracture. IMPRESSION: 1. Limited exam without the use of contrast. 2. Acute on chronic pancreatitis is redemonstrated with similar to mildly worsened inflammatory tidwell es. The previously described fluid collection inferior to the pancreatic tail is not definitively see n without the use of IV contrast. 3. 13 mm cystic lesion versus pseudocyst within the pancreatic neck is unchanged. 4. Unchanged positioning of the common bile duct stent. 5. Moderate fecal retention with gaseous distention of the colon. 6. Small volume of abdominal pelvic ascites with trace pleural and pericardial effusions. 7. Linear bibasilar consolidation favors atelectasis. Underlying pneumonia within the left lung base would be difficult to exclude. 8. Additional findings as above. ACT 112: Negative or not required by law. The above report was generated using voice recognition software. It may contain grammatical, syntax o r spelling errors. Electronically signed by: Jeremiah Muller M.D. 03/16/2021 8:59 AM
--- NOTE | 2021-03-16 10:02 | Gastroenterology Progress Note ---
Date of Service March 16, 2021 Assessment & Plan (1) Acute alcoholic pancreatitis: Plan: 35 year old female w/ history of recurrent alcohol related pancreatitis, last time had disrupted PD and treated by ERCP with PD stenting, this was later removed. Continues to drink 1 month ago, but less than before. No presented with abdominal pain, lipase normal. CT with acute on chronic pancreatitis, 1.5 cm cyst, likely a pseudocyst rather than an abscess or WON. Ongoing abd pain. Repeat CT reviewed. No evidence of leukocytosis, [employer] and glucose normal - Needs adequate hydration, increase LR 200 mL/hr - Continue abx - Hold toradol - Analgesia as needed - Antiemetics as needed - Bowel regmien with Miralax once daily - Pending clinical course, consider MRCP - ERCP scheduled for 05/04 and given to patient today Thank you for allowing us to participate in the care of this patient. Please call with any acute changes, questions or concerns. Please see addendum below with additional recommendation from my supervising physician. Admission and Anticipated Discharge Date Admission Date: March 14, 2021 Supervising Physician Co-Signing Physician Notes Attending attestation I have seen, examined this patient, and agree with the findings and above by our mid-level provider Ms. Christina Garcia, with the following additions: - WBC ct, respiratory status, and renal fxn all normal. No complicaitions of pancreatitis - Clinincally appears about the same as yesterdays eval, walking in room unassisted. - D/C toradol - Pain control - Continue symptomatic care with NPO, IVF (increase rate), pain control, if pain decreases then can advance to clears - if worsens or fails to respond, then can consider MRCP to evaluate pancreatic anatomy to r/u disconnect, stone, etc, however, cysts do not appear to be getting bigger and no acute indication for intervention. - Call with questions Subjective Pt was seen and evaluated, chart reviewed. Upon entering room, she is ambulation from bathroom Does report ongoing abd pain, nausea but no vomiting Is passing gas and moved her bowels this AM. Vitals stable. CT reviewed. Labs reviewed. Review of Systems Review of Systems: All systems reviewed & are unremarkable except as noted in HPI & below Physical Exam Constitutional: WD/WN, vitals as above Neck: trachea midline, no thyromegaly Respiratory: normal respiratory effort, lungs clear to auscultation Cardiovascular: Rate/Rhythm: regular rate Gastrointestinal (Abdomen): Inspection/Auscultation: normal bowel sounds Percussion/Palpation: + abdomen tender and abdomen soft; no guarding and abdomen not rigid Skin: no rashes, warm and dry Results & Data ([facility]) Vital Signs (Past 12 Hours) Vital Signs Temp Pulse Resp BP Pulse Ox 03/16/21 07:30 36.9 C 89 18 125/83 94 03/16/21 04:00 36.9 C 103 H 18 127/80 94 03/15/21 23:00 36.6 C 90 18 123/84 95 Laboratory Results 03/16/21 03/16/21 03/16/21 Range/Units 05:30 05:30 05:30 WBC 3.94 L (4.8-10.8) K/uL RBC 3.47 L (4.2-5.4) M/uL Hgb 11.2 L (12.0-16.0) g/dL Hct 33.6 L (37-47) % MCV 96.8 (80-100) fL MCH 32.3 (25-34) pg MCHC 33.3 (32-36) g/dL RDW Std Deviation 47.6 H (36.4-46.3) fL RDW Coeff of Meme 13.7 (11.5-14.5) % Plt Count 215 D (130-400) K/uL MPV 9.8 (7.4-10.4) fL Immature Gran % (Auto) 0.0 % Neut % (Auto) 58.6 % Lymph % (Auto) 20.3 % Doddridge % (Auto) 21.1 % Eos % (Auto) 0.0 % Baso % (Auto) 0.0 % Neut # (Auto) 2.31 (1.4-6.5) K/uL Lymph # (Auto) 0.80 L (1.2-3.4) K/uL Doddridge # (Auto) 0.83 H (0.11-0.59) K/uL Eos # (Auto) 0.00 (0-0.5) K/uL Baso # (Auto) 0.00 (0-0.2) K/uL Immature Gran # (Auto) 0.00 (0.00-0.02) K/uL RBC Morphology Unremarkable Sodium (136-145) mmol/L Potassium (3.5-5.1) mmol/L Chloride (98-107) mmol/L Carbon Dioxide (21-32) mmol/L Anion Gap (3-11) BUN (7-18) mg/dl Creatinine (0.6-1.2) mg/dl Est Cr Clr Drug Dosing ml/min Est GFR ( Amer) ml/min Est GFR (Non-Af Amer) ml/min BUN/Creatinine Ratio (10-20) Glucose (70-99) mg/dl Lactate 1.2 (0.4-2.0) mmol/L Calcium (8.5-10.1) mg/dl Magnesium (1.8-2.4) mg/dl Total Bilirubin (0.2-1) mg/dl Direct Bilirubin (0-0.2) mg/dl AST (15-37) U/L ALT (12-78) Alkaline Phosphatase (45-117) U/L Total Protein (6.4-8.2) gm/dl Albumin (3.4-5.0) gm/dl Lipase 131 (73-393) U/L 03/16/21 Range/Units 05:30 WBC (4.8-10.8) K/uL RBC (4.2-5.4) M/uL Hgb (12.0-16.0) g/dL Hct (37-47) % MCV (80-100) fL MCH (25-34) pg MCHC (32-36) g/dL RDW Std Deviation (36.4-46.3) fL RDW Coeff of Meme (11.5-14.5) % Plt Count (130-400) K/uL MPV (7.4-10.4) fL Immature Gran % (Auto) % Neut % (Auto) % Lymph % (Auto) % Doddridge % (Auto) % Eos % (Auto) % Baso % (Auto) % Neut # (Auto) (1.4-6.5) K/uL Lymph # (Auto) (1.2-3.4) K/uL Doddridge # (Auto) (0.11-0.59) K/uL Eos # (Auto) (0-0.5) K/uL Baso # (Auto) (0-0.2) K/uL Immature Gran # (Auto) (0.00-0.02) K/uL RBC Morphology Sodium 135 L (136-145) mmol/L Potassium 3.4 L D (3.5-5.1) mmol/L Chloride 102 (98-107) mmol/L Carbon Dioxide 28 (21-32) mmol/L Anion Gap 5.0 (3-11) BUN 3 L (7-18) mg/dl Creatinine 0.61 (0.6-1.2) mg/dl Est Cr Clr Drug Dosing 122.8 ml/min Est GFR ( Amer) 138.1 ml/min Est GFR (Non-Af Amer) 119.1 ml/min BUN/Creatinine Ratio 5.7 L (10-20) Glucose 85 (70-99) mg/dl Lactate (0.4-2.0) mmol/L Calcium 9.2 (8.5-10.1) mg/dl Magnesium 1.9 (1.8-2.4) mg/dl Total Bilirubin 0.5 (0.2-1) mg/dl Direct Bilirubin 0.2 (0-0.2) mg/dl AST 20 (15-37) U/L ALT 26 (12-78) Alkaline Phosphatase 240 H D (45-117) U/L Total Protein 6.4 (6.4-8.2) gm/dl Albumin 2.7 L (3.4-5.0) gm/dl Lipase (73-393) U/L (1) Acute alcoholic pancreatitis Acute pancreatitis complication: unspecified Qualified Code(s): K85.20 - Alcohol induced acute pancreatitis without necrosis or infection
--- NOTE | 2021-03-16 16:10 | Hospitalist Progress Note ---
Date of Service March 16, 2021 Assessment & Plan (1) Acute on chronic pancreatitis: Plan: Per admitting service notes with attending: Patient is 35-year-old female with PMH history alcoholism, alcohol withdrawal seizures, history substance abuse, pancreatitis, pancreatic stricture and ductal leak and PD stent in 08/2019, PD stent removed 03/16/2020, suspected cholangitis and had ERCP with CBD stent placement in 11/2020, chronic back pain, depression, history of suicide attempt presented to ERwith c/o abdominal discomfort x couple of days. In ER pt afebrile, initial P: 115, BP: 94/59, 96% on RA No leukocytosis, Alk phos: 236, AST: 16, ALT: 34, T Bili: 0.6, Lipase: 153 CT ABD/PELVIS: 1. Findings are consistent with acute on chronic pancreatitis. 2. The gland appears to enhance throughout. 3. A common bile duct stent is new from previous. There is no intrahepatic biliary ductal dilatation. 4. A 13 mm cystic lesion versus pseudocyst is again seen in the region of the pancreatic neck. This may communicate with the pancreatic duct. 5. A 2.5 x 2.4 x 1.5 cm organized fluid collection is seen below the pancreatic tail, likely representing a pseudocyst. The sterility of this collection cannot be evaluated by CT. 6. There is significant attenuation of the superior mesenteric vein below the portosplenic confluence and the splenic vein. These vessels remain patent. 7. Splenomegaly. 8. There is marked distention of the gallbladder without clear CT evidence of acute cholecystitis. 9. Hepatic steatosis. 10. Small volume abdominopelvic ascites. In ER given NSS, morphine NPO NSS Cipro, Flagyl Pepcid BID antiemetics, pain control as needed GI consult CBC, CMP, lipase in am 03/15/2021 Abdominal pain, tenderness seems to be improving Lipase within normal limits GI consulted -outpatient ERCP scheduled for May 04 Positive marked distention of gallbladder, liver panel no signs of acute cholecystitis-General surgery consulted-plan for possible cholecystectomy if ERCP revealing any gallbladder stones or sludge Continue IV lactated Ringer's Start clear liquid diet As needed Dilaudid Continue Cipro plus Flagyl Monitor closely 03/16/21 increased abdominal pain repeat CT: similar to mildly increase pancreatic inflammation Lipase normal LFTs: within normal limits except alk phos-mild elevation no fever, leukocytosis continue LR at 200cc/hr NPO, prn analgesics cipro, flagyl Lactulose PRN, Senokot S and Miralax Positive COVID-19: History COVID-19 vaccine in summer 2020, no booster. +COVID-19 PCR. Negative RSV, influenza Patient with h/o cough, nasal congestion x 1-2 weeks. SAAB, myalgias, exertional SOB x 4-5 days No hypoxia at this time, will hold on steroids CXR without infiltrate No leukocytosis, Procalcitonin: 10, CRP: 37 Will start doxycycline as well for possible bacterial component 03/16/2021 Patient remains asymptomatic from COVID-19 infection standpoint On room air, denies cough or shortness of breath Chest x-ray no signs of pneumonia Continue to monitor closely Hypokalemia: Replace and monitor -Resolved History of alcoholism: History alcohol withdrawal seizure in past Last drink reported 1 month ago Recommend alcohol cessation Thiamine, folic acid, multivitamin -No signs of alcohol withdrawal History of substance abuse: Denies any recent or current drug use Depression: History of suicide attempt in the past Currently reports mood stable. Denies suicidal ideations Continue bupropion, hydroxyzine, venlafaxine Tobacco use: Smoking cessation encouraged DVT Prophylaxis SCDs Full Code as per discussion with pt Follows with Dr Massimo Monroe for routine care plan of care discussed with patient in detail and at length all questions answered She is understanding, agreeable, comfortable with the plan of care Admission and Anticipated Discharge Date Admission Date: March 14, 2021 Subjective ff up for acute pancreatitis, etc seen resting in bed, comfortable, not in distress was having increased abdominal pain this morning improving with PRN analgesics no nausea, fever/chills, dyspnea, cough no chest pain, etc no other symptoms Review of Systems Review of Systems: all noted and negative except for above Physical Exam Physical Exam: General- oriented x 3, not in distress, speaks in sentences with no effort or accessory muscle use Eyes- anicteric Neck- no JVD Lungs- clear breath sounds bilaterally, no rales/wheezes Heart- normal rate, regular rhythm; no murmurs Abdomen- normal bowel sounds, nondistended, soft, (+) mild-moderate tenderness on the epigastric region, L quadrants no Looney's sign Extremities- no pretibial edema, no calf tenderness Neuro- alert, oriented x 3; no gross focal neurologic deficits Skin- warm & dry Results & Data Results & Data ([facility]) Vital Signs (Past 12 Hours) Vital Signs Temp Pulse Resp BP Pulse Ox 03/16/21 15:12 36.6 C 87 18 138/92 95 03/16/21 07:30 36.9 C 89 18 125/83 94 all noted and reviewed including below
[2021-03-16] MEDS ORDERED: LORazepam 0.25 MG/0.5 ML VIAL IV STA (23:52)
[2021-03-17] MEDS: HYDROmorphone INJ 1 MG/ML SYRINGE IV PRN ×8 (02:31→23:37)
[2021-03-17] MEDS: metroNIDAZOLE 500 MG TAB PO SCH ×3 (02:34→17:23)
[2021-03-17] MEDS: LACTATED RINGER'S 1,000 ML IV SCH ×4 (03:16→21:35)
[2021-03-17] MEDS: CIPROFLOXACIN / D5W 400 MG/200 ML BAG IV SCH ×2 (06:04→17:23)
[2021-03-17 07:03] LABS: Hematocrit (blood only) 33.6 % (37-47); Hemoglobin 11.2 g/dL (12.0-16.0); Lymphocytes # (auto) 1.03 K/uL (1.2-3.4); Lymphocytes % (auto) 24.9 %; Mean Corpuscular Hemoglobin 31.8 pg (25-34); Mean Corpuscular Hgb Conc 33.3 g/dL (32-36); Mean Corpuscular Volume 95.5 fL (80-100); Mean Platelet Volume 9.7 fL (7.4-10.4); Monocytes # (auto) 1.01 K/uL (0.11-0.59); Monocytes % (auto) 24.5 %; Neutrophils # (auto) 2.09 K/uL (1.4-6.5); Neutrophils % (auto) 50.6 %; Platelet Count 286 K/uL (130-400); RDW Coefficient of Variation 13.6 % (11.5-14.5); RDW Standard Deviation 47.1 fL (36.4-46.3); Red Blood Count 3.52 M/uL (4.2-5.4); White Blood Count 4.13 K/uL (4.8-10.8)
[2021-03-17 07:39] LABS: Alanine Aminotransferase 26 (12-78); Albumin Level 2.7 gm/dl (3.4-5.0); Aspartate Aminotransferase 23 U/L (15-37); Bilirubin Direct 0.2 mg/dl (0-0.2); Blood Urea Nitrogen < 1 mg/dl (7-18); Calcium 9.1 mg/dl (8.5-10.1); Carbon Dioxide 30 mmol/L (21-32); Chloride 101 mmol/L (98-107); Creatinine Clr Calc Pharmacy 151.8 ml/min; Est GFR (Non-African American) 122.5 ml/min; Glucose 102 mg/dl (70-99); Potassium 3.3 mmol/L (3.5-5.1); Sodium 136 mmol/L (136-145)
[2021-03-17 07:41] LABS: Alkaline Phosphatase 262 U/L (45-117); Total Protein 6.6 gm/dl (6.4-8.2)
[2021-03-17] MEDS: NICOTINE 14 MG/24 HR PATCH TD SCH (07:56)
[2021-03-17] MEDS: DOCUSATE SODIUM/SENNA 50/8.6MG TAB PO SCH (07:58)
[2021-03-17] MEDS: THIAMINE HCL 100 MG TAB PO SCH (07:58)
[2021-03-17] MEDS: POLYETHYLENE (MIRALAX) 17 GM PACK PO SCH (07:58)
[2021-03-17] MEDS: VENLAFAXINE HCL XR 150 MG CAPXR PO SCH (07:59)
[2021-03-17] MEDS: buPROPion XL 300 MG TABCR PO SCH (07:59)
[2021-03-17] MEDS: DOXYCYCLINE HYCLATE 100 MG CAP PO SCH ×2 (08:00→20:40)
[2021-03-17] MEDS: FOLIC ACID 1 MG TAB PO SCH (08:00)
[2021-03-17] MEDS: FAMOTIDINE 20 MG TAB PO SCH ×2 (08:01→21:33)
[2021-03-17 08:45] LABS: Bilirubin,Total 0.4 mg/dl (0.2-1)
--- NOTE | 2021-03-17 17:45 | Hospitalist Progress Note ---
Date of Service March 17, 2021 Assessment & Plan (1) Acute on chronic pancreatitis: Plan: Per admitting service notes with attending: Patient is 35-year-old female with PMH history alcoholism, alcohol withdrawal seizures, history substance abuse, pancreatitis, pancreatic stricture and ductal leak and PD stent in 08/2019, PD stent removed 03/16/2020, suspected cholangitis and had ERCP with CBD stent placement in 11/2020, chronic back pain, depression, history of suicide attempt presented to ERwith c/o abdominal discomfort x couple of days. In ER pt afebrile, initial P: 115, BP: 94/59, 96% on RA No leukocytosis, Alk phos: 236, AST: 16, ALT: 34, T Bili: 0.6, Lipase: 153 CT ABD/PELVIS: 1. Findings are consistent with acute on chronic pancreatitis. 2. The gland appears to enhance throughout. 3. A common bile duct stent is new from previous. There is no intrahepatic biliary ductal dilatation. 4. A 13 mm cystic lesion versus pseudocyst is again seen in the region of the pancreatic neck. This may communicate with the pancreatic duct. 5. A 2.5 x 2.4 x 1.5 cm organized fluid collection is seen below the pancreatic tail, likely representing a pseudocyst. The sterility of this collection cannot be evaluated by CT. 6. There is significant attenuation of the superior mesenteric vein below the portosplenic confluence and the splenic vein. These vessels remain patent. 7. Splenomegaly. 8. There is marked distention of the gallbladder without clear CT evidence of acute cholecystitis. 9. Hepatic steatosis. 10. Small volume abdominopelvic ascites. In ER given NSS, morphine NPO NSS Cipro, Flagyl Pepcid BID antiemetics, pain control as needed GI consult CBC, CMP, lipase in am 03/15/2021 Abdominal pain, tenderness seems to be improving Lipase within normal limits GI consulted -outpatient ERCP scheduled for May 04 Positive marked distention of gallbladder, liver panel no signs of acute cholecystitis-General surgery consulted-plan for possible cholecystectomy if ERCP revealing any gallbladder stones or sludge Continue IV lactated Ringer's Start clear liquid diet As needed Dilaudid Continue Cipro plus Flagyl Monitor closely 03/16/21 increased abdominal pain repeat CT: similar to mildly increase pancreatic inflammation Lipase normal LFTs: within normal limits except alk phos-mild elevation no fever, leukocytosis continue LR at 200cc/hr NPO, prn analgesics cipro, flagyl Lactulose PRN, Senokot S and Miralax 03/17/21 abdomen non tender abdominal pain about the same, somewhat better patient requesting clear liquid diet monitor closely continue Cipro + Flagyl Positive COVID-19: History COVID-19 vaccine in summer 2020, no booster. +COVID-19 PCR. Negative RSV, influenza Patient with h/o cough, nasal congestion x 1-2 weeks. SAAB, myalgias, exertional SOB x 4-5 days No hypoxia at this time, will hold on steroids CXR without infiltrate No leukocytosis, Procalcitonin: 10, CRP: 37 Will start doxycycline as well for possible bacterial component 03/17/2021 Patient remains asymptomatic from COVID-19 infection standpoint On room air, denies cough or shortness of breath Chest x-ray no signs of pneumonia Continue to monitor closely Hypokalemia: Replace and monitor -Resolved History of alcoholism: History alcohol withdrawal seizure in past Last drink reported 1 month ago Recommend alcohol cessation Thiamine, folic acid, multivitamin -No signs of alcohol withdrawal History of substance abuse: Denies any recent or current drug use Depression: History of suicide attempt in the past Currently reports mood stable. Denies suicidal ideations Continue bupropion, hydroxyzine, venlafaxine Tobacco use: Smoking cessation encouraged DVT Prophylaxis SCDs Full Code as per discussion with pt Follows with Dr Massimo Monroe for routine care plan of care discussed with patient in detail and at length all questions answered She is understanding, agreeable, comfortable with the plan of care Admission and Anticipated Discharge Date Admission Date: March 14, 2021 Subjective ff up for acute pancreatitis, covid 19 infection, etc seen resting in bed, comfortable not in distress states she still has some abdominal pain but does want to try clear liquids today no BM today yet no nausea/vomiting, fever/chills, shortness of breath, cough no other symptoms Review of Systems Review of Systems: all noted and negative except for above Physical Exam Physical Exam: General- oriented x 3, not in distress, speaks in sentences with no effort or accessory muscle use Eyes- anicteric Neck- no JVD Lungs- clear BS BL Heart- normal rate, regular rhythm; no murmurs Abdomen- normal bowel sounds, nondistended, soft, nontender Extremities- no pretibial edema, no calf tenderness Neuro- alert, oriented x 3; no gross focal neurologic deficits Skin- warm & dry Results & Data Results & Data ([facility]) Vital Signs (Past 12 Hours) Vital Signs Temp Pulse Pulse Resp BP BP Pulse Ox 03/17/21 15:00 84 18 132/88 95 03/17/21 14:55 36.9 C 84 18 132/88 95 03/17/21 07:17 36.5 C 84 18 132/87 98 all noted and reviewed including below
[2021-03-17] MEDS ORDERED: LACTULOSE SYRUP 10 GM/15 ML BTL 960 ML PO PRN (18:00)
[2021-03-18] MEDS: HYDROmorphone INJ 1 MG/ML SYRINGE IV PRN ×7 (02:38→21:50)
[2021-03-18] MEDS: metroNIDAZOLE 500 MG TAB PO SCH ×3 (02:40→18:14)
[2021-03-18] MEDS: LACTATED RINGER'S 1,000 ML IV SCH ×4 (02:46→20:22)
[2021-03-18] MEDS: CIPROFLOXACIN / D5W 400 MG/200 ML BAG IV SCH ×2 (06:22→18:36)
[2021-03-18 08:38] LABS: Hematocrit (blood only) 29.9 % (37-47); Hemoglobin 9.9 g/dL (12.0-16.0); Immature Granulocytes # (auto) 0.03 K/uL (0.00-0.02); Immature Granulocytes % (auto) 0.7 %; Lymphocytes # (auto) 0.88 K/uL (1.2-3.4); Lymphocytes % (auto) 21.4 %; Mean Corpuscular Hemoglobin 31.7 pg (25-34); Mean Corpuscular Hgb Conc 33.1 g/dL (32-36); Mean Corpuscular Volume 95.8 fL (80-100); Mean Platelet Volume 9.4 fL (7.4-10.4); Monocytes % (auto) 21.9 %; Platelet Count 306 K/uL (130-400); RDW Coefficient of Variation 13.7 % (11.5-14.5); RDW Standard Deviation 47.4 fL (36.4-46.3); Red Blood Count 3.12 M/uL (4.2-5.4); White Blood Count 4.11 K/uL (4.8-10.8)
[2021-03-18] MEDS: DOXYCYCLINE HYCLATE 100 MG CAP PO SCH ×2 (08:39→21:31)
[2021-03-18] MEDS: buPROPion XL 300 MG TABCR PO SCH (08:39)
[2021-03-18] MEDS: POLYETHYLENE (MIRALAX) 17 GM PACK PO SCH (08:39)
[2021-03-18] MEDS: VENLAFAXINE HCL XR 150 MG CAPXR PO SCH (08:39)
[2021-03-18] MEDS: FOLIC ACID 1 MG TAB PO SCH (08:39)
[2021-03-18] MEDS: DOCUSATE SODIUM/SENNA 50/8.6MG TAB PO SCH (08:39)
[2021-03-18] MEDS: THIAMINE HCL 100 MG TAB PO SCH (08:39)
[2021-03-18] MEDS: FAMOTIDINE 20 MG TAB PO SCH ×2 (08:39→21:31)
[2021-03-18] MEDS: NICOTINE 14 MG/24 HR PATCH TD SCH (08:40)
[2021-03-18 09:22] LABS: Alanine Aminotransferase 21 (12-78); Albumin Level 2.5 gm/dl (3.4-5.0); Aspartate Aminotransferase 15 U/L (15-37); Blood Urea Nitrogen < 1 mg/dl (7-18); Calcium 9.3 mg/dl (8.5-10.1); Carbon Dioxide 30 mmol/L (21-32); Chloride 101 mmol/L (98-107); Creatinine Clr Calc Pharmacy 139.5 ml/min; Est GFR (African American) 138.1 ml/min; Est GFR (Non-African American) 119.1 ml/min; Glucose 91 mg/dl (70-99); Lipase 39 U/L (73-393); Potassium 3.2 mmol/L (3.5-5.1); Sodium 136 mmol/L (136-145)
[2021-03-18 09:25] LABS: Alkaline Phosphatase 214 U/L (45-117); Bilirubin Direct 0.1 mg/dl (0-0.2); Total Protein 6.1 gm/dl (6.4-8.2)
[2021-03-18 10:37] LABS: Bilirubin,Total 0.3 mg/dl (0.2-1)
--- NOTE | 2021-03-18 14:10 | Hospitalist Progress Note ---
Date of Service March 18, 2021 Assessment & Plan (1) Acute on chronic pancreatitis: Plan: Per admitting service notes with attending: Patient is 35-year-old female with PMH history alcoholism, alcohol withdrawal seizures, history substance abuse, pancreatitis, pancreatic stricture and ductal leak and PD stent in 08/2019, PD stent removed 03/16/2020, suspected cholangitis and had ERCP with CBD stent placement in 11/2020, chronic back pain, depression, history of suicide attempt presented to ERwith c/o abdominal discomfort x couple of days. In ER pt afebrile, initial P: 115, BP: 94/59, 96% on RA No leukocytosis, Alk phos: 236, AST: 16, ALT: 34, T Bili: 0.6, Lipase: 153 CT ABD/PELVIS: 1. Findings are consistent with acute on chronic pancreatitis. 2. The gland appears to enhance throughout. 3. A common bile duct stent is new from previous. There is no intrahepatic biliary ductal dilatation. 4. A 13 mm cystic lesion versus pseudocyst is again seen in the region of the pancreatic neck. This may communicate with the pancreatic duct. 5. A 2.5 x 2.4 x 1.5 cm organized fluid collection is seen below the pancreatic tail, likely representing a pseudocyst. The sterility of this collection cannot be evaluated by CT. 6. There is significant attenuation of the superior mesenteric vein below the portosplenic confluence and the splenic vein. These vessels remain patent. 7. Splenomegaly. 8. There is marked distention of the gallbladder without clear CT evidence of acute cholecystitis. 9. Hepatic steatosis. 10. Small volume abdominopelvic ascites. In ER given NSS, morphine NPO NSS Cipro, Flagyl Pepcid BID antiemetics, pain control as needed GI consult CBC, CMP, lipase in am 03/15/2021 Abdominal pain, tenderness seems to be improving Lipase within normal limits GI consulted -outpatient ERCP scheduled for May 04 Positive marked distention of gallbladder, liver panel no signs of acute cholecystitis-General surgery consulted-plan for possible cholecystectomy if ERCP revealing any gallbladder stones or sludge Continue IV lactated Ringer's Start clear liquid diet As needed Dilaudid Continue Cipro plus Flagyl Monitor closely 03/16/21 increased abdominal pain repeat CT: similar to mildly increase pancreatic inflammation Lipase normal LFTs: within normal limits except alk phos-mild elevation no fever, leukocytosis continue LR at 200cc/hr NPO, prn analgesics cipro, flagyl Lactulose PRN, Senokot S and Miralax 03/17/21 abdomen non tender abdominal pain about the same, somewhat better patient requesting clear liquid diet monitor closely continue Cipro + Flagyl 03/18/21 Tolerating clear liquid diet well Discussed regarding as needed Dilaudid, recommended every 4 hours for now, but patient became upset, states it does not last for more than 3 hours Requesting To stay with present pain medication regimen at this time Recommended to titrate down Dilaudid tomorrow, patient agreeable Labs stable overall Continue Cipro plus Flagyl day 5 out of 7 LR at 125 cc/h Lactulose 1 dose today Positive COVID-19: History COVID-19 vaccine in summer 2020, no booster. +COVID-19 PCR. Negative RSV, influenza Patient with h/o cough, nasal congestion x 1-2 weeks. SAAB, myalgias, exertional SOB x 4-5 days No hypoxia at this time, will hold on steroids CXR without infiltrate No leukocytosis, Procalcitonin: 10, CRP: 37 Will start doxycycline as well for possible bacterial component 03/18/2021 Patient remains asymptomatic On room air, denies cough or shortness of breath, fevers or chills, chest pain or leg pain Chest x-ray no signs of pneumonia Continue to monitor closely Continue doxycycline twice daily day number 5 out of 7 Hypokalemia: Replace and monitor -Resolved History of alcoholism: History alcohol withdrawal seizure in past Last drink reported 1 month ago Recommend alcohol cessation Thiamine, folic acid, multivitamin -No signs of alcohol withdrawal History of substance abuse: Denies any recent or current drug use Depression: History of suicide attempt in the past Currently reports mood stable. Denies suicidal ideations Continue bupropion, hydroxyzine, venlafaxine Tobacco use: Smoking cessation encouraged DVT Prophylaxis SCDs Full Code as per discussion with pt Follows with Dr Massimo Monroe for routine care plan of care discussed with patient in detail and at length all questions answered She is understanding, agreeable, comfortable with the plan of care Admission and Anticipated Discharge Date Admission Date: March 14, 2021 Subjective Follow-up for acute pancreatitis, COVID-19 infection, etc. Seen sitting up in bed, not in distress States that she is tolerating clear liquid diet well Does report upper quadrant abdominal pain again today, states that she is not yet ready to titrate down pain medication at this time No nausea vomiting No BM since yesterday no chest pain, dyspnea, palpitations, dizziness Denies cough, fevers or chills, leg pain No other symptoms Review of Systems Review of Systems: all noted and negative except for above Physical Exam Physical Exam: General- oriented x 3, not in distress, speaks in sentences with no effort or accessory muscle use Eyes- anicteric Neck- no JVD Lungs- clear BS BL Heart- normal rate, regular rhythm; no murmurs Abdomen- normal bowel sounds, nondistended, soft, mild tenderness on the upper quadrants Extremities- no pretibial edema, no calf tenderness Neuro- alert, oriented x 3; no gross focal neurologic deficits Skin- warm & dry Results & Data Results & Data ([facility]) Vital Signs (Past 12 Hours) Vital Signs Temp Pulse Resp BP Pulse Ox 03/18/21 07:42 36.5 C 82 20 124/81 96 all noted and reviewed including below
[2021-03-18] MEDS: POTASSIUM CHLORIDE CRTAB 20 MEQ TABCR PO SCH ×2 (14:41→21:31)
[2021-03-18 15:51] LABS: Pregnancy Test, Serum Positive (Negative)
[2021-03-18] MEDS ORDERED: Nursing to Pharmacy Communication SCH ×2 (18:15→18:45)
[2021-03-18] MEDS: HEPARIN SOD 5,000 UNIT/0.5 ML VIAL SQ SCH (21:50)
[2021-03-19] MEDS: HYDROmorphone INJ 1 MG/ML SYRINGE IV PRN ×7 (01:02→21:14)
[2021-03-19] MEDS: metroNIDAZOLE 500 MG TAB PO SCH ×3 (02:45→17:10)
[2021-03-19] MEDS: CIPROFLOXACIN / D5W 400 MG/200 ML BAG IV SCH ×2 (05:51→17:10)
[2021-03-19] MEDS: LACTATED RINGER'S 1,000 ML IV SCH ×4 (06:47→22:39)
[2021-03-19 07:06] LABS: Hematocrit (blood only) 33.2 % (37-47); Hemoglobin 11.1 g/dL (12.0-16.0); Mean Corpuscular Hgb Conc 33.4 g/dL (32-36); Mean Corpuscular Volume 95.7 fL (80-100); Mean Platelet Volume 10.1 fL (7.4-10.4); Platelet Count 461 K/uL (130-400); RDW Coefficient of Variation 13.9 % (11.5-14.5); RDW Standard Deviation 47.9 fL (36.4-46.3); Red Blood Count 3.47 M/uL (4.2-5.4); White Blood Count 8.59 K/uL (4.8-10.8)
[2021-03-19 07:36] LABS: Albumin Level 2.8 gm/dl (3.4-5.0); BUN Creatinine Ratio 2.9 (10-20); Bilirubin Direct 0.1 mg/dl (0-0.2); Bilirubin,Total 0.4 mg/dl (0.2-1); Calcium 9.6 mg/dl (8.5-10.1); Est GFR (African American) 135.9 ml/min; Est GFR (Non-African American) 117.2 ml/min; Potassium 3.9 mmol/L (3.5-5.1); Total Protein 6.7 gm/dl (6.4-8.2)
[2021-03-19 07:38] LABS: Immature Granulocytes # (auto) 0.05 K/uL (0.00-0.02); Immature Granulocytes % (auto) 0.6 %; Lymphocytes # (auto) 1.67 K/uL (1.2-3.4); Lymphocytes % (auto) 19.4 %; Monocytes # (auto) 1.43 K/uL (0.11-0.59); Monocytes % (auto) 16.6 %; Neutrophils # (auto) 5.44 K/uL (1.4-6.5); Neutrophils % (auto) 63.4 %
[2021-03-19] MEDS: HEPARIN SOD 5,000 UNIT/0.5 ML VIAL SQ SCH ×3 (07:48→21:07)
[2021-03-19] MEDS: NICOTINE 14 MG/24 HR PATCH TD SCH (07:48)
[2021-03-19] MEDS: POTASSIUM CHLORIDE CRTAB 20 MEQ TABCR PO SCH (07:49)
[2021-03-19] MEDS: VENLAFAXINE HCL XR 150 MG CAPXR PO SCH (07:49)
[2021-03-19] MEDS: THIAMINE HCL 100 MG TAB PO SCH (07:49)
[2021-03-19] MEDS: DOCUSATE SODIUM/SENNA 50/8.6MG TAB PO SCH (07:49)
[2021-03-19] MEDS: DOXYCYCLINE HYCLATE 100 MG CAP PO SCH ×2 (07:49→21:07)
[2021-03-19] MEDS: FAMOTIDINE 20 MG TAB PO SCH ×2 (07:49→21:07)
[2021-03-19] MEDS: buPROPion XL 300 MG TABCR PO SCH (07:49)
[2021-03-19] MEDS: FOLIC ACID 1 MG TAB PO SCH (07:49)
[2021-03-19] MEDS: POLYETHYLENE (MIRALAX) 17 GM PACK PO SCH (10:52)
--- NOTE | 2021-03-19 12:19 | Gastroenterology Progress Note ---
Date of Service March 19, 2021 Assessment & Plan (1) Acute on chronic pancreatitis: Plan: Etiology most likely ETOH - even if no intake for a month, with chronic pancreatitis, at risk for recurrent episodes of acute pancreatitis. 2.5 cm pancreatic pseudocyst unlikely to cause current symptoms. - Will advance to full liquid diet. - Minimize narcotic pain medications. - continue ambulating. - Plan for OP ERCP for removal of existing CBD stent on 05/04/21 as previously scheduled as an OP by Dr. Shea. Admission and Anticipated Discharge Date Admission Date: March 14, 2021 Subjective 35 yr old female with recurrent ETOH acute on chronic pancreatitis. Reports most recent drink 1 month ago. This morning, pt states still ongoing upper abd pain, but wants to advance diet. Has been tolerating clear liquids well. Most recent ERCP Nov 2020 Dr. Restrepo: - Biliary papillary stenosis, benign. - The biliary tree was swept and sludge and pus were found. - One plastic biliary stent was placed into the common bile duct. - Pancreatic ductal system could not be accessed Review of Systems Review of Systems: ROS: Gen: Denies weakness, fevers, weight loss Eyes: No eye redness, or pain, no recent vision changes Resp: No SOB, no cough Cardio: No palpitations/irregular beats, no chest pain GI: + abdominal pain, no nausea/vomiting : Denies pain on urination Skin: No jaundice, itching or new rashes Physical Exam Constitutional: well developed, + ill appearing, + thin and cooperative Eyes: PERRL, conjunctivae normal, anicteric sclerae Respiratory: normal respiratory effort, lungs clear to auscultation Cardiovascular: RRR, no murmur, no edema Gastrointestinal (Abdomen): Inspection/Auscultation: abdomen normal to inspection and + hypoactive bowel sounds; abdomen not distended (maybe slight gasseous distention - pt perceives her abd is larger than typi) Percussion/Palpation: + abdomen tender (accross upper abd) and abdomen soft Skin: no rashes, warm and dry normal turgor no jaundice Neurologic: PERRL, EOMI, accommodation nl, no face palsy, no dysarthria awake; not confused Psychiatric: A+Ox3, euthymic affect Results & Data ([facility]) Vital Signs (Past 12 Hours) Vital Signs Temp Pulse Resp BP Pulse Ox 03/19/21 07:39 36.8 C 60 19 126/82 97 Laboratory Results WBC8, Hb 11.1, Hct 33.2, Plts 319, Na 1144, K 3.7, Cl 113, CO2 26, BUN 18, Cr 1.29 Lipase 39 yesterday Diagnostic Findings Non contrast CTAP 03/16/21: 1. Limited exam without the use of contrast. 2. Acute on chronic pancreatitis is redemonstrated with similar to mildly worsened inflammatory changes. The previously described fluid collection inferior to the pancreatic tail is not definitively seen without the use of IV contrast. 3. 13 mm cystic lesion versus pseudocyst within the pancreatic neck is unchanged. 4. Unchanged positioning of the common bile duct stent. 5. Moderate fecal retention with gaseous distention of the colon. 6. Small volume of abdominal pelvic ascites with trace pleural and pericardial effusions. 7. Linear bibasilar consolidation favors atelectasis. Underlying pneumonia within the left lung base would be difficult to exclude. 8. Additional findings as above. CTAP w IV contrast 03/14/21: 1. Findings are consistent with acute on chronic pancreatitis. 2. The gland appears to enhance throughout. 3. A common bile duct stent is new from previous. There is no intrahepatic biliary ductal dilatation. 4. A 13 mm cystic lesion versus pseudocyst is again seen in the region of the pancreatic neck. This may communicate with the pancreatic duct. 5. A 2.5 x 2.4 x 1.5 cm organized fluid collection is seen below the pancreatic tail, likely representing a pseudocyst. The sterility of this collection cannot be evaluated by CT. 6. There is significant attenuation of the superior mesenteric vein below the portosplenic confluence and the splenic vein. These vessels remain patent. 7. Splenomegaly. 8. There is marked distention of the gallbladder without clear CT evidence of acute cholecystitis. 9. Hepatic steatosis. 10. Small volume abdominopelvic ascites.
--- NOTE | 2021-03-19 15:36 | Hospitalist Progress Note ---
Date of Service March 19, 2021 Assessment & Plan (1) Acute on chronic pancreatitis: Plan: Per admitting service notes with attending: Patient is 35-year-old female with PMH history alcoholism, alcohol withdrawal seizures, history substance abuse, pancreatitis, pancreatic stricture and ductal leak and PD stent in 08/2019, PD stent removed 03/16/2020, suspected cholangitis and had ERCP with CBD stent placement in 11/2020, chronic back pain, depression, history of suicide attempt presented to ERwith c/o abdominal discomfort x couple of days. In ER pt afebrile, initial P: 115, BP: 94/59, 96% on RA No leukocytosis, Alk phos: 236, AST: 16, ALT: 34, T Bili: 0.6, Lipase: 153 CT ABD/PELVIS: 1. Findings are consistent with acute on chronic pancreatitis. 2. The gland appears to enhance throughout. 3. A common bile duct stent is new from previous. There is no intrahepatic biliary ductal dilatation. 4. A 13 mm cystic lesion versus pseudocyst is again seen in the region of the pancreatic neck. This may communicate with the pancreatic duct. 5. A 2.5 x 2.4 x 1.5 cm organized fluid collection is seen below the pancreatic tail, likely representing a pseudocyst. The sterility of this collection cannot be evaluated by CT. 6. There is significant attenuation of the superior mesenteric vein below the portosplenic confluence and the splenic vein. These vessels remain patent. 7. Splenomegaly. 8. There is marked distention of the gallbladder without clear CT evidence of acute cholecystitis. 9. Hepatic steatosis. 10. Small volume abdominopelvic ascites. In ER given NSS, morphine NPO NSS Cipro, Flagyl Pepcid BID antiemetics, pain control as needed GI consult CBC, CMP, lipase in am 03/15/2021 Abdominal pain, tenderness seems to be improving Lipase within normal limits GI consulted -outpatient ERCP scheduled for May 04 Positive marked distention of gallbladder, liver panel no signs of acute cholecystitis-General surgery consulted-plan for possible cholecystectomy if ERCP revealing any gallbladder stones or sludge Continue IV lactated Ringer's Start clear liquid diet As needed Dilaudid Continue Cipro plus Flagyl Monitor closely 03/16/21 increased abdominal pain repeat CT: similar to mildly increase pancreatic inflammation Lipase normal LFTs: within normal limits except alk phos-mild elevation no fever, leukocytosis continue LR at 200cc/hr NPO, prn analgesics cipro, flagyl Lactulose PRN, Senokot S and Miralax 03/17/21 abdomen non tender abdominal pain about the same, somewhat better patient requesting clear liquid diet monitor closely continue Cipro + Flagyl 03/18/21 Tolerating clear liquid diet well Discussed regarding as needed Dilaudid, recommended every 4 hours for now, but patient became upset, states it does not last for more than 3 hours Requesting To stay with present pain medication regimen at this time Recommended to titrate down Dilaudid tomorrow, patient agreeable Labs stable overall Continue Cipro plus Flagyl day 5 out of 7 LR at 125 cc/h Lactulose 1 dose today 03/19/21 patient continues to request keeping Dilaudid q3h for now due to epigastric pain agreed to taper down to q4h tomorrow add Tylenol PO TID full liquids per GI monitor Continue Cipro plus Flagyl day 6 out of 7 continue LR Lactulose 1 dose today Positive COVID-19: History COVID-19 vaccine in summer 2020, no booster. +COVID-19 PCR. Negative RSV, influenza Patient with h/o cough, nasal congestion x 1-2 weeks. SAAB, myalgias, exertional SOB x 4-5 days No hypoxia at this time, will hold on steroids CXR without infiltrate No leukocytosis, Procalcitonin: 10, CRP: 37 Will start doxycycline as well for possible bacterial component 03/19/2021 Patient remains asymptomatic On room air, denies cough or shortness of breath, fevers or chills, chest pain or leg pain Chest x-ray no signs of pneumonia Continue to monitor closely Continue doxycycline twice daily day number 6 out of 7 Hypokalemia: Replace and monitor -Resolved History of alcoholism: History alcohol withdrawal seizure in past Last drink reported 1 month ago Recommend alcohol cessation Thiamine, folic acid, multivitamin -No signs of alcohol withdrawal History of substance abuse: Denies any recent or current drug use Depression: History of suicide attempt in the past Currently reports mood stable. Denies suicidal ideations Continue bupropion, hydroxyzine, venlafaxine Tobacco use: Smoking cessation encouraged DVT Prophylaxis SCDs Full Code as per discussion with pt Follows with Dr Massimo Monroe for routine care plan of care discussed with patient in detail and at length all questions answered She is understanding, agreeable, comfortable with the plan of care Admission and Anticipated Discharge Date Admission Date: March 14, 2021 Subjective ff up for acute pancreatitis, covid 19, etc seen resting in bed, not in distress appears comfortable, watching TV states she still has significant upper quadrant pain no nausea tolerating clears well no BM since yesterday no chest pain, dyspnea, palpitations, dizziness no fever/chills no other symptoms Review of Systems Review of Systems: all noted and negative except for above Physical Exam Physical Exam: General- oriented x 3, not in distress, speaks in sentences with no effort or accessory muscle use Eyes- anicteric Neck- no JVD Lungs- clear BS BL Heart- normal rate, regular rhythm; no murmurs Abdomen- normal bowel sounds, nondistended, soft, nontender Extremities- no pretibial edema, no calf tenderness Neuro- alert, oriented x 3; no gross focal neurologic deficits Skin- warm & dry Results & Data Results & Data ([facility]) Vital Signs (Past 12 Hours) Vital Signs Temp Pulse Resp BP Pulse Ox 03/19/21 12:24 36.4 C L 76 20 121/82 95 03/19/21 07:39 36.8 C 60 19 126/82 97 all noted and reviewed including below
[2021-03-19] MEDS ORDERED: LACTULOSE SYRUP 10 GM/15 ML BTL 960 ML PO ONE (15:45)
[2021-03-20] MEDS: HYDROmorphone INJ 1 MG/ML SYRINGE IV PRN ×6 (00:24→16:08)
[2021-03-20] MEDS: metroNIDAZOLE 500 MG TAB PO SCH ×2 (01:53→09:54)
[2021-03-20] MEDS: CIPROFLOXACIN / D5W 400 MG/200 ML BAG IV SCH (06:06)
[2021-03-20] MEDS: HEPARIN SOD 5,000 UNIT/0.5 ML VIAL SQ SCH ×2 (06:10→13:20)
[2021-03-20] MEDS: LACTATED RINGER'S 1,000 ML IV SCH (06:12)
[2021-03-20 06:28] LABS: Hematocrit (blood only) 31.7 % (37-47); Hemoglobin 10.4 g/dL (12.0-16.0); Immature Granulocytes # (auto) 0.05 K/uL (0.00-0.02); Immature Granulocytes % (auto) 0.9 %; Lymphocytes # (auto) 1.37 K/uL (1.2-3.4); Lymphocytes % (auto) 24.8 %; Mean Corpuscular Hemoglobin 31.9 pg (25-34); Mean Corpuscular Hgb Conc 32.8 g/dL (32-36); Mean Corpuscular Volume 97.2 fL (80-100); Mean Platelet Volume 9.2 fL (7.4-10.4); Monocytes # (auto) 0.94 K/uL (0.11-0.59); Neutrophils # (auto) 3.17 K/uL (1.4-6.5); Neutrophils % (auto) 57.3 %; Platelet Count 437 K/uL (130-400); RDW Coefficient of Variation 13.8 % (11.5-14.5); RDW Standard Deviation 48.9 fL (36.4-46.3); Red Blood Count 3.26 M/uL (4.2-5.4); White Blood Count 5.53 K/uL (4.8-10.8)
[2021-03-20 07:28] LABS: Albumin Level 2.7 gm/dl (3.4-5.0); Bilirubin Direct 0.1 mg/dl (0-0.2); Bilirubin,Total 0.5 mg/dl (0.2-1); Calcium 9.4 mg/dl (8.5-10.1); Creatinine Clr Calc Pharmacy 130.9 ml/min; Est GFR (African American) 135.2 ml/min; Est GFR (Non-African American) 116.7 ml/min; Potassium 3.1 mmol/L (3.5-5.1); Total Protein 6.3 gm/dl (6.4-8.2)
[2021-03-20] MEDS ORDERED: POTASSIUM CHLORIDE CRTAB 20 MEQ TABCR PO SCH (09:00)
[2021-03-20] MEDS: buPROPion XL 300 MG TABCR PO SCH (09:01)
[2021-03-20] MEDS: FOLIC ACID 1 MG TAB PO SCH (09:01)
[2021-03-20] MEDS: FAMOTIDINE 20 MG TAB PO SCH (09:02)
[2021-03-20] MEDS: VENLAFAXINE HCL XR 150 MG CAPXR PO SCH (09:02)
[2021-03-20] MEDS: DOCUSATE SODIUM/SENNA 50/8.6MG TAB PO SCH (09:03)
[2021-03-20] MEDS: DOXYCYCLINE HYCLATE 100 MG CAP PO SCH (09:03)
[2021-03-20] MEDS: THIAMINE HCL 100 MG TAB PO SCH (09:03)
[2021-03-20] MEDS: NICOTINE 14 MG/24 HR PATCH TD SCH (09:04)
[2021-03-20] MEDS: POLYETHYLENE (MIRALAX) 17 GM PACK PO SCH (09:09)
--- NOTE | 2021-03-20 14:03 | Hospitalist Progress Note ---
Date of Service March 20, 2021 Assessment & Plan (1) Acute on chronic pancreatitis: Plan: Per admitting service notes with attending: Patient is 35-year-old female with PMH history alcoholism, alcohol withdrawal seizures, history substance abuse, pancreatitis, pancreatic stricture and ductal leak and PD stent in 08/2019, PD stent removed 03/16/2020, suspected cholangitis and had ERCP with CBD stent placement in 11/2020, chronic back pain, depression, history of suicide attempt presented to ERwith c/o abdominal discomfort x couple of days. In ER pt afebrile, initial P: 115, BP: 94/59, 96% on RA No leukocytosis, Alk phos: 236, AST: 16, ALT: 34, T Bili: 0.6, Lipase: 153 CT ABD/PELVIS: 1. Findings are consistent with acute on chronic pancreatitis. 2. The gland appears to enhance throughout. 3. A common bile duct stent is new from previous. There is no intrahepatic biliary ductal dilatation. 4. A 13 mm cystic lesion versus pseudocyst is again seen in the region of the pancreatic neck. This may communicate with the pancreatic duct. 5. A 2.5 x 2.4 x 1.5 cm organized fluid collection is seen below the pancreatic tail, likely representing a pseudocyst. The sterility of this collection cannot be evaluated by CT. 6. There is significant attenuation of the superior mesenteric vein below the portosplenic confluence and the splenic vein. These vessels remain patent. 7. Splenomegaly. 8. There is marked distention of the gallbladder without clear CT evidence of acute cholecystitis. 9. Hepatic steatosis. 10. Small volume abdominopelvic ascites. In ER given NSS, morphine NPO NSS Cipro, Flagyl Pepcid BID antiemetics, pain control as needed GI consult CBC, CMP, lipase in am 03/15/2021 Abdominal pain, tenderness seems to be improving Lipase within normal limits GI consulted -outpatient ERCP scheduled for May 04 Positive marked distention of gallbladder, liver panel no signs of acute cholecystitis-General surgery consulted-plan for possible cholecystectomy if ERCP revealing any gallbladder stones or sludge Continue IV lactated Ringer's Start clear liquid diet As needed Dilaudid Continue Cipro plus Flagyl Monitor closely 03/16/21 increased abdominal pain repeat CT: similar to mildly increase pancreatic inflammation Lipase normal LFTs: within normal limits except alk phos-mild elevation no fever, leukocytosis continue LR at 200cc/hr NPO, prn analgesics cipro, flagyl Lactulose PRN, Senokot S and Miralax 03/17/21 abdomen non tender abdominal pain about the same, somewhat better patient requesting clear liquid diet monitor closely continue Cipro + Flagyl 03/18/21 Tolerating clear liquid diet well Discussed regarding as needed Dilaudid, recommended every 4 hours for now, but patient became upset, states it does not last for more than 3 hours Requesting To stay with present pain medication regimen at this time Recommended to titrate down Dilaudid tomorrow, patient agreeable Labs stable overall Continue Cipro plus Flagyl day 5 out of 7 LR at 125 cc/h Lactulose 1 dose today 03/19/21 patient continues to request keeping Dilaudid q3h for now due to epigastric pain agreed to taper down to q4h tomorrow add Tylenol PO TID full liquids per GI monitor Continue Cipro plus Flagyl day 6 out of 7 continue LR Lactulose 1 dose today 03/20/21 much better tolerating soft diet well no abdominal pain now as per patient completed 7 days of Flagyl and Cipro ff up with PCP this week ff up with GI as outpatient for ERCP on 05/04/21 Positive COVID-19: History COVID-19 vaccine in summer 2020, no booster. +COVID-19 PCR. Negative RSV, influenza Patient with h/o cough, nasal congestion x 1-2 weeks. SAAB, myalgias, exertional SOB x 4-5 days No hypoxia at this time, will hold on steroids CXR without infiltrate No leukocytosis, Procalcitonin: 10, CRP: 37 Will start doxycycline as well for possible bacterial component 03/20/2021 Patient remained asymptomatic On room air, denies cough or shortness of breath, fevers or chills, chest pain or leg pain Chest x-ray no signs of pneumonia Continue to monitor closely completed doxycycline twice daily x 7 days Hypokalemia: Replace and monitor -Resolved History of alcoholism: History alcohol withdrawal seizure in past Last drink reported 1 month ago Recommend alcohol cessation Thiamine, folic acid, multivitamin -No signs of alcohol withdrawal History of substance abuse: Denies any recent or current drug use Depression: History of suicide attempt in the past Currently reports mood stable. Denies suicidal ideations Continue bupropion, hydroxyzine, venlafaxine Tobacco use: Smoking cessation encouraged DVT Prophylaxis SCDs Full Code as per discussion with pt Follows with PCP this week plan of care discussed with patient in detail and at length all questions answered She is understanding, agreeable, comfortable with the plan of care Admission and Anticipated Discharge Date Admission Date: March 14, 2021 Subjective ff up for covid 19 infection, acute pancreatitis, etc seen resting in bed, comfortable in good spirits states she feels much better overall no abdominal pain today tolerating diet well no nausea/vomiting, fever/chills no cough, dyspnea, palpitations, dizziness ambulating with no problems Review of Systems Review of Systems: all noted and negative except for above Physical Exam Physical Exam: General- oriented x 3, not in distress, speaks in sentences with no effort or accessory muscle use Eyes- anicteric Neck- no JVD Lungs- clear breath sounds , no crackles/ or wheezing bilaterally Heart- normal rate, regular rhythm; no murmurs Abdomen- normal bowel sounds, nondistended, soft, nontender Extremities- no pretibial edema, no calf tenderness Neuro- alert, oriented x 3; no gross focal neurologic deficits Skin- warm & dry Results & Data Results & Data ([facility]) Vital Signs (Past 12 Hours) Vital Signs Temp Pulse Resp BP Pulse Ox 03/20/21 11:30 36.8 C 65 20 127/84 97 03/20/21 07:28 36.5 C 88 20 130/83 97 all noted and reviewed including below
--- NOTE | 2021-03-20 14:20 | Hospitalist Progress Note ---
Date of Service March 20, 2021 Assessment & Plan (1) Acute on chronic pancreatitis: Plan: Per admitting service notes with attending: Patient is 35-year-old female with PMH history alcoholism, alcohol withdrawal seizures, history substance abuse, pancreatitis, pancreatic stricture and ductal leak and PD stent in 08/2019, PD stent removed 03/16/2020, suspected cholangitis and had ERCP with CBD stent placement in 11/2020, chronic back pain, depression, history of suicide attempt presented to ERwith c/o abdominal discomfort x couple of days. In ER pt afebrile, initial P: 115, BP: 94/59, 96% on RA No leukocytosis, Alk phos: 236, AST: 16, ALT: 34, T Bili: 0.6, Lipase: 153 CT ABD/PELVIS: 1. Findings are consistent with acute on chronic pancreatitis. 2. The gland appears to enhance throughout. 3. A common bile duct stent is new from previous. There is no intrahepatic biliary ductal dilatation. 4. A 13 mm cystic lesion versus pseudocyst is again seen in the region of the pancreatic neck. This may communicate with the pancreatic duct. 5. A 2.5 x 2.4 x 1.5 cm organized fluid collection is seen below the pancreatic tail, likely representing a pseudocyst. The sterility of this collection cannot be evaluated by CT. 6. There is significant attenuation of the superior mesenteric vein below the portosplenic confluence and the splenic vein. These vessels remain patent. 7. Splenomegaly. 8. There is marked distention of the gallbladder without clear CT evidence of acute cholecystitis. 9. Hepatic steatosis. 10. Small volume abdominopelvic ascites. In ER given NSS, morphine NPO NSS Cipro, Flagyl Pepcid BID antiemetics, pain control as needed GI consult CBC, CMP, lipase in am 03/15/2021 Abdominal pain, tenderness seems to be improving Lipase within normal limits GI consulted -outpatient ERCP scheduled for May 04 Positive marked distention of gallbladder, liver panel no signs of acute cholecystitis-General surgery consulted-plan for possible cholecystectomy if ERCP revealing any gallbladder stones or sludge Continue IV lactated Ringer's Start clear liquid diet As needed Dilaudid Continue Cipro plus Flagyl Monitor closely 03/16/21 increased abdominal pain repeat CT: similar to mildly increase pancreatic inflammation Lipase normal LFTs: within normal limits except alk phos-mild elevation no fever, leukocytosis continue LR at 200cc/hr NPO, prn analgesics cipro, flagyl Lactulose PRN, Senokot S and Miralax 03/17/21 abdomen non tender abdominal pain about the same, somewhat better patient requesting clear liquid diet monitor closely continue Cipro + Flagyl 03/18/21 Tolerating clear liquid diet well Discussed regarding as needed Dilaudid, recommended every 4 hours for now, but patient became upset, states it does not last for more than 3 hours Requesting To stay with present pain medication regimen at this time Recommended to titrate down Dilaudid tomorrow, patient agreeable Labs stable overall Continue Cipro plus Flagyl day 5 out of 7 LR at 125 cc/h Lactulose 1 dose today 03/19/21 patient continues to request keeping Dilaudid q3h for now due to epigastric pain agreed to taper down to q4h tomorrow add Tylenol PO TID full liquids per GI monitor Continue Cipro plus Flagyl day 6 out of 7 continue LR Lactulose 1 dose today 03/20/21 much better tolerating soft diet well no abdominal pain now as per patient completed 7 days of Flagyl and Cipro ff up with PCP this week ff up with GI as outpatient for ERCP on 05/04/21 Positive COVID-19: History COVID-19 vaccine in summer 2020, no booster. +COVID-19 PCR. Negative RSV, influenza Patient with h/o cough, nasal congestion x 1-2 weeks. SAAB, myalgias, exertional SOB x 4-5 days No hypoxia at this time, will hold on steroids CXR without infiltrate No leukocytosis, Procalcitonin: 10, CRP: 37 Will start doxycycline as well for possible bacterial component 03/20/2021 Patient remained asymptomatic On room air, denies cough or shortness of breath, fevers or chills, chest pain or leg pain Chest x-ray no signs of pneumonia Continue to monitor closely completed doxycycline twice daily x 7 days Hypokalemia: Replace and monitor -Resolved History of alcoholism: History alcohol withdrawal seizure in past Last drink reported 1 month ago Recommend alcohol cessation Thiamine, folic acid, multivitamin -No signs of alcohol withdrawal History of substance abuse: Denies any recent or current drug use Depression: History of suicide attempt in the past Currently reports mood stable. Denies suicidal ideations Continue bupropion, hydroxyzine, venlafaxine Tobacco use: Smoking cessation encouraged DVT Prophylaxis SCDs Full Code as per discussion with pt Follows with PCP this week plan of care discussed with patient in detail and at length all questions answered She is understanding, agreeable, comfortable with the plan of care Admission and Anticipated Discharge Date Admission Date: March 14, 2021 Subjective ff up for Results & Data Results & Data ([facility]) Vital Signs (Past 12 Hours) Vital Signs Temp Pulse Resp BP Pulse Ox 03/20/21 11:30 36.8 C 65 20 127/84 97 03/20/21 07:28 36.5 C 88 20 130/83 97
--- NOTE | 2021-03-20 14:35 | Discharge Summary ---
Date of Service March 20, 2021 Admission HPI Per Admitting Provider Patient is 35-year-old female with PMH history alcoholism, alcohol withdrawal seizures, history substance abuse, pancreatitis, pancreatic stricture and ductal leak and PD stent in 08/2019, PD stent removed 03/16/2020, CBD stent placed 11/2020, chronic back pain, depression, history of suicide attempt presented to ERwith c/o abdominal discomfort x couple of days. She reports abdominal discomfort is all over abdomen, worse upper abdomen and described as burning and stabbing pain that is aggravated with movement. Reports nausea without vomiting. Last BM yesterday and was formed. She states 1-2 weeks ago started nasal congestion and cough that is now productive green sputum. C/O chills, tactile fever, SOB with walking that started 4-5 days ago. C/O Myalgias 3-4 days. Lightheaded. Denies syncope. Generalized SAAB x 4-5 days. Denies photophobia, vision changes. Denies loss taste or smell. Reports Vaccinated COVID-19 in summer 2020. No booster. Last drink of alcohol 1 month ago. Denies recent or current drug use. Denies melena, hematochezia. History of hospitalization 11/22/2020-11/28/2020 for abdominal pain, acute on chronic pancreatitis, suspected cholangitis was treated with antibiotics and had ERCP with CBD stent placement. Denies diaphoresis, syncope, vision changes, neck pain, CP, orthopnea, palpitations, hemoptysis, sore throat, choking, otalgia, paresthesias, weakness, extremity weakness, extremity edema, rashes, urinary symptoms. States travelled recently over the holidays. Admission Exam (Per Admitting) Constitutional General: no acute distress, WDWN Head: normocephalic, atraumatic Eyes: PERRL, EOM's intact, conjunctiva non-injected, anicteric ENT: normal inspection external ears, nose, mucous membranes moist Neck: supple, trachea midline Lungs: clear, no respiratory distress, no wheezing/rhonchi/rales CV: RRR, no murmur, no pretibial edema Abd: normal BS, soft, +diffuse tenderness to palpation, worse epigastric, no guarding Ext: no cyanosis, no calf tenderness Neuro: A&O x 3, no focal deficits noted, normal affect Skin: warm, dry Discharge Data Consultations 03/14/21 15:37 ED Decision to Admit Stat 03/14/21 17:36 Consult Gastroenterology Routine 03/15/21 09:50 Consult General Surgery Routine Procedures Performed CT SCAN OF THE ABDOMEN AND PELVIS WITH IV CONTRAST CLINICAL HISTORY: Generous abdominal pain, greatest in the left lower quadran t. COMPARISON STUDY: Abdominal CT dated 11/22/2020. TECHNIQUE: Following the IV administration of 95 cc of Optiray 320, CT scan of the abdomen and pelvis is performed from the lung bases to the proximal femora. Images are reviewed in the axial, sagittal, and coronal planes. IV contrast was administered without complication. A dose lowering technique was utilized adhering to the principles of ALARA. CT DOSE: 323.30 mGy.cm FINDINGS: Lung bases: The heart is normal in size and without pericardial effusion. The lung bases are clear. Liver: The contrast-enhanced liver is top normal in size and normal in contour. The liver demonstrates diffusely diminished attenuation consistent with hepatic steatosis. Fatty infiltration is seen adjacent to falciform ligament. There is no intrahepatic biliary ductal dilatation. The hepatic veins and portal veins are patent. Gallbladder: The gallbladder is markedly distended. A common bile duct stent is new from previous. This extends from the hepatic hilum of the duodenum. Spleen: The spleen is enlarged measuring 15.5 cm in length. Pancreas: The pancreas is mildly edematous. Numerous parenchyma calcifications indicate chronic pancreatitis. Peripancreatic inflammation and fluid is consistent with acute pancreatitis. The gland appears to enhance throughout. The pancreatic duct is mildly dilated, measuring up to 5 mm. A 13 mm cystic lesion versus pseudocyst is again seen in the region of the pancreatic neck on image #166. This may communicate with the pancreatic duct. There is a small peripancreatic fluid collection inferior to the pancreatic tail seen on image #163 measuring 2.5 x 2.4 x 1.5 cm. The appearance is typical for a small pseudocyst. No additional organized peripancreatic fluid collection is identified. There is significant narrowing of the superior mesenteric vein posterior to the pancreatic head on image #168. No intraluminal thrombus is identified an the vessel remains patent. There is marked attenuation of the splenic vein as seen on image #162 Adrenal glands: Unremarkable. Kidneys: The contrast enhanced kidneys are normal in size and without hydronephrosis. The kidneys enhance symmetrically. Abdominal vasculature: The abdominal aorta is normal in course and caliber. Bowel: There is no bowel obstruction. Moderate fecal retention is seen throughout the colon. The appendix is not identified and reported surgically absent. Peritoneum: There is trace perisplenic ascites as well as free fluid in the pelvis. No intraperitoneal free air is identified. There is a fat-containing umbilical hernia. Lymphadenopathy: Numerous mildly enlarged peripancreatic and retroperitoneal lymph nodes are likely reactive. Pelvic viscera: The bladder is decompressed and not well evaluated. Uterus is normal as visualized. No adnexal lesion is seen. A small volume of free fluid is seen in the cul-de-sac. Skeletal structures: No lytic or blastic lesions are seen. IMPRESSION: 1. Findings are consistent with acute on chronic pancreatitis. 2. The gland appears to enhance throughout. 3. A common bile duct stent is new from previous. There is no intrahepatic biliary ductal dilatation. 4. A 13 mm cystic lesion versus pseudocyst is again seen in the region of the pancreatic neck. This may communicate with the pancreatic duct. 5. A 2.5 x 2.4 x 1.5 cm organized fluid collection is seen below the pancreatic tail, likely representing a pseudocyst. The sterility of this collection cannot be evaluated by CT. 6. There is significant attenuation of the superior mesenteric vein below the portosplenic confluence and the splenic vein. These vessels remain patent. 7. Splenomegaly. 8. There is marked distention of the gallbladder without clear CT evidence of acute cholecystitis. 9. Hepatic steatosis. 10. Small volume abdominopelvic ascites. ACT 112: Negative or not required by law. SINGLE VIEW CHEST CLINICAL HISTORY: Cough. Covid FINDINGS: An AP, portable, upright chest radiograph is compared to study dated 03/12/2020. The cardiomediastinal silhouette is unremarkable. There is mild elevation of the left hemidiaphragm with minimal left basilar atelectasis. The lungs and pleural spaces are otherwise clear. No pneumothorax is seen. The bony thorax is grossly intact. IMPRESSION: No acute cardiopulmonary abnormality. ACT 112: Negative or not required by law. Electronically signed by: Felice Amato M.D. 03/14/2021 3:53 PM Hospital Course (1) Acute on chronic pancreatitis: Per admitting service notes with attending: Patient is 35-year-old female with PMH history alcoholism, alcohol withdrawal seizures, history substance abuse, pancreatitis, pancreatic stricture and ductal leak and PD stent in 08/2019, PD stent removed 03/16/2020, suspected cholangitis and had ERCP with CBD stent placement in 11/2020, chronic back pain, depression, history of suicide attempt presented to ERwith c/o abdominal discomfort x couple of days. In ER pt afebrile, initial P: 115, BP: 94/59, 96% on RA No leukocytosis, Alk phos: 236, AST: 16, ALT: 34, T Bili: 0.6, Lipase: 153 CT ABD/PELVIS: 1. Findings are consistent with acute on chronic pancreatitis. 2. The gland appears to enhance throughout. 3. A common bile duct stent is new from previous. There is no intrahepatic biliary ductal dilatation. 4. A 13 mm cystic lesion versus pseudocyst is again seen in the region of the pancreatic neck. This may communicate with the pancreatic duct. 5. A 2.5 x 2.4 x 1.5 cm organized fluid collection is seen below the pancreatic tail, likely representing a pseudocyst. The sterility of this collection cannot be evaluated by CT. 6. There is significant attenuation of the superior mesenteric vein below the portosplenic confluence and the splenic vein. These vessels remain patent. 7. Splenomegaly. 8. There is marked distention of the gallbladder without clear CT evidence of acute cholecystitis. 9. Hepatic steatosis. 10. Small volume abdominopelvic ascites. 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 +COVID-19 PCR. Negative RSV, influenza Patient with h/o cough, nasal congestion x 1-2 weeks. SAAB, myalgias, exertional SOB x 4-5 days No hypoxia at this time, will hold on steroids CXR without infiltrate No leukocytosis, Procalcitonin: 10, CRP: 37 03/20/2021 Patient remained asymptomatic On room air, denies cough or shortness of breath, fevers or chills, chest pain or leg pain Chest x-ray no signs of pneumonia Continue to monitor closely completed doxycycline twice daily x 7 days Instructed to continue home isolation x5 more days Hypokalemia: Potassium 40 meqs p.o. daily x10 days ordered for hypokalemia of 3.1 Repeat basic medical profile, magnesium in 1 week care of primary care physician History of alcoholism: History alcohol withdrawal seizure in past Last drink reported 1 month ago Recommended alcohol cessation Thiamine, folic acid, multivitamin -No signs of alcohol withdrawal History of substance abuse: Denies any recent or current drug use Depression: History of suicide attempt in the past Currently reports mood stable. Denies suicidal ideations Continue bupropion, hydroxyzine, venlafaxine Tobacco use: Smoking cessation encouraged DVT Prophylaxis SCDs Full Code as per discussion with pt Follows with PCP this week plan of care discussed with patient in detail and at length all questions answered She is understanding, agreeable, comfortable with the plan of care
--- NOTE | 2021-04-06 11:08 | Coding Query ---
To promote full compliance with coding requirements relating to patient care, provider participation is requested in all cases of printed circuit boards solder leveler uncertainty. Please assist us with the question(s) below: Coding Question(s): The diagnosis(es) below was documented in the H&P, then subsequently fell off all further documentation. Please indicate if it is still a possible diagnosis or ruled out. Physician's Response(s): Possible UTI (documented on H&P) ( X ) Diagnosed and POA ( ) Diagnosed and not POA ( ) Ruled out ( ) Other (please specify) PNEUMONIA (H&P documents COVID-19 Pneumonia. Regarding the Pneumonia only as it was not documented past the H&P and says CXR without infiltrate on Discharge Summary) ( X) Diagnosed and POA ( ) Diagnosed and not POA ( ) Ruled out ( ) Other (please specify) MTDD
== END 2021-03-20 17:44 | disposition home or self-care (01) | DRG 438 ==
LOC: ED 11:57 → SUATTDRO 17:36 → EDINP 17:36 → 2W 03-15 19:34